=== PATIENT | female | born 1945 | race Caucasian/White ===

== ENCOUNTER 2019-02-24 19:22 | Observation (INO) | payer MEDICARE, OTHER, SELFPAY ==
[2019-02-24] VITALS (8 sets, daily range): BP systolic 145–170; BP diastolic 99–123; PULSE 76–109; RESP 13–17; TEMP 36.6–36.8; O2SAT 94–99; BMI 18.8; BMI 17.5; BMI 17.6
[2019-02-24 19:41] LABS: Bedside Glucose 115 mg/dL (70-110)
--- NOTE | 2019-02-24 19:46 | RAD_ITS ---
STUDY: X-RAY CHEST REASON FOR EXAM: Female, 73 years old. Dizziness and headache TECHNIQUE: Single AP portable view of the chest. COMPARISON: None. FINDINGS: There is hyperinflation of the lungs consistent with chronic obstructive lung disease (COPD). No focal pulmonary consolidation. There is no demonstrated pleural abnormality. Normal size heart. Normal mediastinum and hermilo. Normal visualized pulmonary arteries. There is atherosclerotic tortuosity of the aortic arch and descending thoracic aorta. There is a dextroscoliosis of the thoracic spine. Normal visualized ribs, clavicles, and shoulders. There is no demonstrated abnormality of the visualized soft tissue structures of the upper abdomen. RAD/Chest 1 View IMPRESSION: The lungs are clear. Electronically Signed: Arabella Basilio, at 20:46 EDT Tel , Service support ,
--- NOTE | 2019-02-24 19:46 | EKG12_ITS ---
Test Reason : NEURO S/X Blood Pressure : / mmHG Vent. Rate : 097 BPM Atrial Rate : 097 BPM P-R Int : 142 ms QRS Dur : 084 ms QT Int : 366 ms P-R-T Axes : 081 076 062 degrees QTc Int : 464 ms Normal sinus rhythm Nonspecific ST and T wave abnormality Abnormal ECG Confirmed by LUIS BETANCOURT, MARCIA ([id number]), offline editor LASHAY VALDES ([id number]) on 02/27/2019 1:23:54 PM Referred By: MICA Confirmed By:MARCIA SMITH MD
--- NOTE | 2019-02-24 19:46 | CT_ITS ---
STUDY: CT BRAIN WITHOUT CONTRAST REASON FOR EXAM: Female, 73 years old. Dizziness, headache RADIATION DOSAGE (If Supplied By Facility): CTDIvol = ( 44.99 ) mGy, DLP = ( 779.24 ) mGycm TECHNIQUE: Transaxial CT imaging of the brain was performed without administration of intravenous contrast material. Individualized dose optimization techniques were used for this CT. COMPARISON: No relevant priors. FINDINGS: Normal soft tissue structures. Normal calvarium. There is mild cerebral atrophy with widening of the extra-axial spaces and ventricular dilatation. There are areas of marked decreased attenuation within the white matter tracts of the supratentorial brain, consistent with microvascular disease changes. There is a chronic lacunar infarct in the left internal capsule anterior limb. Normal basal ganglia and thalami. Normal brainstem. Normal cerebellum. There is no intracranial hemorrhage. There are no findings of an acute ischemic infarction. Normal visualized paranasal sinuses. CT/Brain/Head without Contrast IMPRESSION: Chronic involutional changes of the brain. No acute intracranial abnormality. Electronically Signed: Arabella Basilio, at 20:45 EDT Tel , Service support ,
[2019-02-24] MEDS: 0.9% Normal Saline 1,000 ML 100 ML IV (20:06)
[2019-02-24 20:13] LABS: Absolute Lymphocyte Count 2.01 X10^3/ul (0.83-4.51); Absolute Neutrophil Count 5.4 X10^3/uL (2.0-7.7); Basophil# 0.02 X10^3/uL; Basophil% 0.2 % (0-1); Eosinophil# 0.05 X10^3/uL; Eosinophils% 0.6 % (0-5); Hematocrit 50.1 % (37-47); Hemoglobin 17.1 g/dl (12.0-15.0); Lymphocyte # 2.01 X10^3/ul (4.0); Lymphocyte % 24.7 % (19-41); Mean Corp Hgb Conc 34.1 g/gl (32-36); Mean Corpuscular Hgb 31.7 pg (27.0-32.0); Mean Corpuscular Volume 92.9 fL (81-99); Mean Platelet Vol. 9.3 fl (6.2-12.0); Monocyte# 0.63 X10^3/uL; Monocyte% 7.7 % (0-10); Neutrophil # 5.42 X10^3/uL (2.7-7.7); Neutrophil % 66.7 % (47-70); POSITIVE COUNT NO; POSITIVE DIFFERENTIAL NO; POSITIVE MORPHOLOGY NO; Platelet Count 246 K/mm3 (150-450); RBC Distribution Width CV 13.7 % (11.6-14.6); RBC Distribution Width SD 46.5 fl (35.1-43.9); Red Blood Count 5.39 M/mm3 (4.2-5.4); White Blood Count 8.1 K/mm3 (4.4-11.0)
[2019-02-24 20:23] LABS: International Normalized Ratio 0.9
[2019-02-24 20:24] LABS: Partial Thromboplast Time 25.2 Seconds (24.1-36.2)
[2019-02-24 20:26] LABS: Anion Gap 8 (5-15); BUN 29 mg/dL (7-18); BUN/Creat Ratio 35.6 RATIO (10-20); Chloride 108 mmol/L (98-107); Creatinine, Serum 0.82 mg/dL (0.55-1.02); EST Glomerular Filtration Rate 73 mL/min (>60); Est Glom Filt Rate - Afr Amer 88 mL/min (>60); Estimated Creatinine Clearance 48.13 ml/min; Glucose 108 mg/dL (74-106); Potassium 3.5 mmol/L (3.5-5.1); Sodium Level 142 mmol/L (136-145)
--- NOTE | 2019-02-24 21:10 | ED.VISSUMM ---
- ER Visit Summary Date of Service: 02/24/19 Chief Complaint: Headache and confusion History of Present Illness: The patient is a 73 F who started to feel lightheaded and developed a frontal headache last night around 1130 before going to bed. Patient states her headache continued today. She did take an old Vicodin without much improvement. Family reports she seems more forgetful and has trouble finding her words. She denies any recent head injury. She does have a history of headache and migraines, but has not had migraine in quite some time. She does go to [facility] for injections in her eyes. She states the last 2 months they have noted her blood pressure to be elevated. Physical Examination: Blood pressure is 165/122, temperature 98.3, heart rate 109, respiratory rate 16, pulse ox 98% on room air. Patient sitting upright in bed no acute distress. Head and neck examination is normal. Heart is regular rate and rhythm. Lung sounds are clear. Abdomen is soft and nontender. Neuro exam reveals an NIH score of 1, she receives one-point for best language with slight loss of fluency and trouble with word finding. Test Results: EKG is sinus at [address] changes. Portable chest x-ray shows lungs to be clear. CT head shows chronic involutional changes with no acute abnormality. CBC was normal white count with hemoglobin concentrated at 17.1 hematocrit 50.1. Chemistry studies reveal BUN of 29. Coags normal. Troponin is negative. Emergency Department Course and Treatment: Patient was given IV fluids. Blood pressure initially improved to 140/99 and on most recent check is back up to 160/105. I recommended hospitalization overnight for further monitoring, blood pressure monitoring, and potential MRI. Patient states her headache is essentially resolved at this point. Treatment Plan: [] Disposition: Admit Impression: 1. Cephalgia, improved 2. Confusion 3. Hypertension This note was generated with [employer] dictation software. It may contain incorrect words, spelling, and punctuation that were not noted in review of the chart prior to signing ED Disposition - Plan for ED Patient: Referrals: Chris Clemente MD [Primary Care Provider] -
--- NOTE | 2019-02-24 21:29 | ED.RN ---
OK TO [facility] PER .
--- NOTE | 2019-02-24 21:34 | HP.PCM_ITS ---
Problem List (1) Stroke-like symptoms Status: Acute History of Present Illness Date of Admission: 02/24/19 Chief Complaint: words finding difficulty The patient is a 73 year old F with a significant history of tobacco abuse; macular degeneration; and chronic headache who presented to the emergency department with words finding difficulty. Her symptoms started on the same day of presentation but many hours before presentation. Associated with her sym ptoms is excruciating supra-orbital headache in a band-like pattern. She typically has a chronic headache but her headache on the day of presentation was more severe. Further, she had lightheadedness. A neighbor came to her home and found that patient was having difficulty finding words for which reason the neighbor called the patient's family. Patient's family upon realizing that patient was slow to think and was having difficulty finding words brought patient to the emergency department. Her family thinks that at baseline patient is very sharp and spontaneously in answering questions. At the emergency department her blood pressure was elevated. Patient reports that she gets injections into her eyes . At the center where she gets these shots into her eyes she was told that her blood pressure has been elevated. Past Medical History Medical History: Medical History (Last Updated 02/24/19 @ 22:29 by Gatito Bautista MD) Macular degeneration H35.30 Allergies No Known Allergies Allergy (Verified 02/24/19 19:27) Home Medications: Ambulatory Orders Medication Instructions Recorded NK 02/24/19 Surgical History: no surgical history Lives: Alone Smoking Status: Current every day smoker Tobacco Use: Cigarettes Alcohol: None - *Family History Maternal History Items: Cancer Paternal History Items: - - Patient and her family does not know. Review of Systems Constitutional: Denies: Chills, Fever, Weight Change HEENT: Reports: Head Aches. Denies: Sinus Congestion, Sinus Drainage Cardiovascular: Denies: Chest Pain, Palpitations Respiratory: Denies: Cough, Shortness of breath at rest, Sputum production Gastrointestinal: Denies: Abdominal Pain, Nausea, Vomiting Genitourinary: Denies: Dysuria Musculoskeletal: Denies: Joint Pain, Joint Tenderness Skin: Denies: Rash, Wounds Neurological: Reports: Change in Speech, Headaches. Denies: Focal weakness, Numbness, Tingling Psychiatric: Denies: Anxiety, Depression, Homicidal Ideations, Suicidal Ideations Hematologic/ Lymphatic: Denies: Easy Bruising, Easy Bleeding VTE Information - Inpt Only VTE Present on Admission: Yes VTE Mechan Device Prophylaxis: None VTE Pharm Prophylaxis ordered?: Yes Patient Problems: Active and Suspected Problems (Last Updated 02/24/19 @ 22:29 by Gatito Bautista MD) Stroke-like symptoms (Acute) - Physical Exam General: Alert, Oriented x3, Cooperative HEENT: Atraumatic, PERRLA, EOMI, Normocephalic Neck: Supple, No JVD, Negative Carotid Bruits Lungs: Clear to auscultation, Normal air movement Cardiovascular: Regular rate, No murmurs Abdomen: Bowel Sounds Present, Soft, Non Tender Extremities: No edema, Capillary Refill Less than 3 Seconds Skin: No rashes, No breakdown Musculoskeletal: No Tenderness to Palpation of Joints or Extremities Neurological: Cranial nerves II-XII grossly intact, Deep Tendon Reflexes 2+/4 and Symmetrical, Motor Exam 5/5 strength throughout, Muscle tone normal, - - No dysmetria. Psych/Mental Status: Normal Affect, Appropriate Vital Signs Temp Pulse Resp BP Pulse Ox 98.3 F 84 16 162/123 H 98 02/24/19 19:23 02/24/19 21:30 02/24/19 21:30 02/24/19 21:30 02/24/19 21:30 Oxygen Delivery Method Room Air Weight: 49.895 kg Body Mass Index (BMI) 18.8 Finger Stick Blood Glucose 115 Laboratory Tests Past 24 Hrs 02/24/19 02/24/19 02/24/19 20:00 20:00 20:00 WBC 8.1 RBC 5.39 Hgb 17.1 H Hct 50.1 H MCV 92.9 MCH 31.7 MCHC 34.1 RDW 13.7 RDW Differential 46.5 H Plt Count 246 MPV 9.3 Immature Gran % (Auto) 0.100 Neut % (Auto) 66.7 Lymph % (Auto) 24.7 [place] % (Auto) 7.7 Eos % (Auto) 0.6 Baso % (Auto) 0.2 Absolute Neuts (auto) 5.4 Absolute Lymphs (auto) 2.01 Total Counted Not Reportable PT 12.0 INR 0.9 APTT 25.2 Sodium 142 Potassium 3.5 Chloride 108 H Carbon Dioxide 26.0 Anion Gap 8 BUN 29 H Creatinine 0.82 Estim Creat Clear Calc 48.13 Est GFR (MDRD) Af Amer 88 Est GFR (MDRD) Non-Af 73 BUN/Creatinine Ratio 35.6 H Glucose 108 H Calcium 9.0 Troponin I < 0.015 POC Glucose 02/24/19 19:34 POC Glucose 115 H Assessment/Plan All Active Problems (Last Updated 02/24/19 @ 22:29 by Gatito Bautista MD) Stroke-like symptoms (Acute) The patient is a 73 year old F with a significant history of tobacco abuse; macular degeneration; and chronic headache who presented to the emergency department with words finding difficulty; lightheadedness and headache concerning for stroke/TIA. Strokelike symptoms Emergency department doctor reported that NINDS NIH Scale on admission was called as 1 because of word finding difficulty. Chest x-ray shows hyperinflation and atherosclerotic tortuosity of the aortic arch and descending aorta. Chest x-ray was independently reviewed. I agree with radiologist interpretation. CT of the head mild cerebral atrophy with widening of the extra axial spaces and ventricular dilatation. There was evidence of mild microvascular disease. There is a chronic lacunar infarct in the left internal capsule anterior limb. -Check Hba1c, Lipid level Physical therapy, occupational therapy and speech therapy to work with patient. N.p.o. until bedside swallow eval. Daily aspirin. High intensity statin Permissive hypertension. Control blood pressure with labetalol for systolic blood pressure of more than 220 or diastolic blood pressure of more than 120. -Permissive HTN for 24 hrs ending about 8 AM on 02/25/2019. MRI/MRAM of head; brain; and neck. Echocardiogram ordered. Tylenol for headache Differential diagnosis includes complex migraine. Probable Mild dehydration Patient noted to have elevated BUN of 29 Her hemoglobin was 17.1 and hematocrit was 50.1; likely, her erythrocytosis is from hypoxia and obstructive lung disease secondary to smoking. Can not rule out hemoconcentration from dehydration. She received IV fluid emergency department. Maintenance normal saline continued. Trend CBC and BMP Macular degeneration She reports she gets intraocular injections. Continue with outpatient therapy. Elevated blood pressure without diagnosis of hypertension. If her blood pressure remains elevated above the window of permissive hyperte nsion for stroke consider starting patient on blood pressure medication. Tobacco abuse Patient declined nicotine patch Counselled DVT prophylaxis Subcutaneous heparin. . Code Visit OBSV E&M: [id number] Initial observation care L3
[2019-02-24 23:21] LABS: Hemoglobin A1c 5.9 % (4.2-6.3)
[2019-02-25] VITALS (11 sets, daily range): BP systolic 128–165; BP diastolic 90–113; PULSE 62–97; RESP 16; TEMP 36.5–37.1; O2SAT 95–98; BMI 17.5
[2019-02-25] MEDS: 0.9% NaCl Peripheral Flush Adult/Peds IV (00:15)
[2019-02-25] MEDS: 0.9% Normal Saline 1,000 ML 100 ML IV (00:15)
[2019-02-25] MEDS: Atorvastatin Calcium 80 MG Tablet PO (00:34)
[2019-02-25 05:58] LABS: Hematocrit 44.2 % (37-47); Hemoglobin 14.6 g/dl (12.0-15.0); Mean Corpuscular Volume 93.8 fL (81-99); Mean Platelet Vol. 9.3 fl (6.2-12.0); Platelet Count 213 K/mm3 (150-450); RBC Distribution Width CV 13.7 % (11.6-14.6); RBC Distribution Width SD 47.3 fl (35.1-43.9); Red Blood Count 4.71 M/mm3 (4.2-5.4); White Blood Count 5.8 K/mm3 (4.4-11.0)
[2019-02-25 06:09] LABS: Anion Gap 7 (5-15); BUN 18 mg/dL (7-18); BUN/Creat Ratio 35.2 RATIO (10-20); Calcium,Total 8.1 mg/dL (8.5-10.1); Chloride 114 mmol/L (98-107); Cholesterol 207 mg/dL (200); Creatinine, Serum 0.51 mg/dL (0.55-1.02); EST Glomerular Filtration Rate 125 mL/min (>60); Est Glom Filt Rate - Afr Amer 152 mL/min (>60); Glucose 79 mg/dL (74-106); High Density Lipoprotein 61 mg/dL; Potassium 3.5 mmol/L (3.5-5.1); Sodium Level 144 mmol/L (136-145); Triglycerides 124 mg/dL; Very Low Density Lipoprotein 25 mg/dL (5-40)
[2019-02-25 06:15] LABS: Scan Indicated on CBC? Y/N NO
[2019-02-25] MEDS: Heparin Injection (Vial) 5,000 UNIT/ML VIAL 5000 UNIT SC (06:30)
--- NOTE | 2019-02-25 07:39 | MRI_ITS ---
STUDY: MRI BRAIN WITHOUT CONTRAST REASON FOR EXAM: Female, 73 years old. CVA, confusion TECHNIQUE: Standardized multiplanar fat and water weighted pulse sequences were obtained. COMPARISON: CT head-02/24/2019. FINDINGS: There is moderate cerebral atrophy with widening of the extra-axial spaces and ventricular dilatation. There are multiple confluent white matter hyperintensities, distributed throughout the deep white matter tracts of the cerebral hemispheres, consistent with severe chronic white matter ischemic changes. There are chronic bilateral basal ganglia lacunar infarct. Normal thalami. There is no extra-axial fluid accumulation. Normal flow voids within the major intracranial circulation suggesting patency by spin echo criteria. Normal sella turcica, pituitary gland, infundibular stalk, optic chiasm and hypothalamus. Normal tectal plate and pineal gland. Normal midbrain, rossi and medulla. Normal cerebellum. Normal basal cisterns. Normal bilateral temporal bones. Normal bilateral internal auditory canals. No demonstrated orbital abnormality, within the constraints of a routine brain study. Normal visualized paranasal sinuses. Normal calvarium and skull base. Normal visualized soft tissue structures. Normal visualized upper cervical spine. MRI/Brain without Contrast IMPRESSION: No acute intracranial abnormality. Involutional changes of the brain, as described above. Electronically Signed: Arabella Basilio, at 10:22 EDT Tel , Service support ,
--- NOTE | 2019-02-25 07:39 | MRI_ITS ---
STUDY: MRA NECK WITH AND WITHOUT CONTRAST REASON FOR EXAM: Female, 73 years old. CVA, confusion TECHNIQUE: 3-D [id number] (TOF) imaging was performed in an 1.5 T MRI scanner. 10 IV Dotarem was administered for the contrast enhanced images. COMPARISON: None. FINDINGS: RIGHT CAROTID ARTERIES: Normal right common carotid artery (CCA). There is mild atherosclerotic plaque formation with minimal narrowing of the right carotid bulb. Normal origin of the right internal carotid (ICA) artery without a hemodynamically significant stenosis. Normal visualized cervical portion of the right internal carotid artery. There is moderate atherosclerotic plaque formation of the origin of the right external carotid artery with an estimated stenosis of 50-69% stenosis. LEFT CAROTID ARTERIES: Normal left common carotid artery (CCA). There is mild atherosclerotic plaque formation with minimal narrowing of the left carotid bulb. Normal origin of the left internal carotid (ICA) artery without a hemodynamically significant stenosis. Normal visualized cervical portion of the left internal carotid artery. Normal origin of the left external carotid artery (ECA). VERTEBRAL ARTERIES: Normal antegrade flow within the bilateral vertebral artery without a hemodynamically significant stenosis. MRI/MRA Neck WITH and W/O Contrast IMPRESSION: There is mild bilateral carotid bulb atherosclerotic disease. There is moderate atherosclerotic plaque formation of the origin of the right external carotid artery with an estimated stenosis of 50-69% stenosis. Electronically Signed: Arabella Basilio, at 11:01 EDT Tel , Service support ,
--- NOTE | 2019-02-25 07:39 | MRI_ITS ---
STUDY: MRA OF THE HEAD WITHOUT CONTRAST REASON FOR EXAM: Female, 73 years old. CVA, confusion TECHNIQUE: 3-D [id number] (TOF) imaging was performed with MIPs. The study was performed unenhanced. COMPARISON: None. FINDINGS: Normal bilateral petrous carotid arteries. Normal right cavernous carotid artery with a normal supraclinoid bifurcation. Normal left cavernous carotid artery with a normal supraclinoid bifurcation. Normal right A1 segments of the anterior cerebral artery. Normal left A1 segments of the anterior cerebral artery. Normal intact anterior communicating artery (ACOM). Normal bilateral A2 segments of the anterior cerebral arteries. Normal right M1 and M2 segments of the middle cerebral arteries, with a normal M1 bifurcation. Normal left M1 and M2 segments of the middle cerebral arteries, with a normal M1 bifurcation. Normal right posterior communicating artery (PCOM). Normal left posterior communicating artery (PCOM). Normal bilateral vertebral arteries. Normal basilar artery with a normal basilar bifurcation. The visualized bilateral superior cerebellar (SCA) arteries are normal. Normal bilateral P1, P2 and visualized P3 segments of the posterior cerebral arteries. There is no demonstrated aneurysm of the pala of [place]. There is no major vessel occlusion or hemodynamically significant stenosis. There is no demonstrated abnormality of the visualized brain. MRI/MRA Head ONLY without Contrast IMPRESSION: Normal MRA of the head Electronically Signed: Arabella Basilio, at 10:47 EDT Tel , Service support ,
[2019-02-25] MEDS: Aspirin 81 MG TAB.CHEW PO (10:10)
--- NOTE | 2019-02-25 12:01 | PCM.PROGNOTE ---
Subjective: Patient is a 73-year-old female with a past medical history of tobacco dependence, macular degeneration and chronic headache who presented to the emergency department at [facility] on 02/24/2019 complaining of difficulty word finding. She had the symptoms for many hours prior to presenting to the emergency department. She also complained of an excruciating supraorbital headache in a bandlike pattern. Vital signs in the emergency department were temp 98.3, pulse 109, blood pressure 160 respiratory rate 16 and she was 96-98% saturated on room air. CBC was remarkable for a hemoglobin of 17.1. BMP was remarkable for a BUN of 29 with a creatinine of 0.82. Hemoglobin A1c was 5.9. Troponin was less than 0.015. A noncontrasted brain CT showed chronic involutional changes only. Chest x-ray showed no infiltrates, pleural effusions or pulmonary vascular congestion. NIH in the emergency room was 1 with slight loss of fluency and trouble word finding. Blood pressures have ranged from 128/98-162/123 since admission. With hydration the creatinine has decreased from 0.82-0.51 with a BUN of 18. Hemoglobin is decreased to 14.6. MRI of the brain shows no acute intracranial abnormality but does show involutional changes. MRA of the head is normal. MRA of the neck shows 50-69% stenosis of the right external carotid artery. PT, OT and speech therapy have been ordered but the patient has not been seen yet. - Physical Exam General: Alert, Oriented x3, Cooperative, No apparent distress HEENT: Atraumatic, PERRLA, EOMI, Normocephalic Oral: Dry Mucosa Neck: Supple, No JVD, Negative Carotid Bruits Lungs: Clear to auscultation Cardiovascular: Regular rate, Regular Rhythm, Normal S1, Normal S2, No murmurs, No Gallop Abdomen: Bowel Sounds Present, Soft, Non Tender, Non-Distended Extremities: No clubbing, No cyanosis, No edema Neurological: Cranial nerves II-XII grossly intact, Neuro grossly intact, - - her son and dtr are in the room and they feel that she is back to her baseline Psych/Mental Status: Normal Affect, Appropriate Vital Signs Temp Pulse Resp BP Pulse Ox 98.7 F 72 16 165/90 H 95 02/25/19 08:12 02/25/19 08:12 02/25/19 08:12 02/25/19 08:12 02/25/19 08:12 Oxygen Delivery Method Room Air Weight: 102 lb 4.712 oz Body Mass Index (BMI) 17.5 Finger Stick Blood Glucose 115 Intake and Output for Last 24 Hours 02/23/19 02/24/19 02/25/19 23:59 23:59 23:59 Intake Total 715 / 715 Balance 715 / 715 Laboratory Tests Past 24 Hrs 02/24/19 02/24/19 02/24/19 20:00 20:00 20:00 WBC 8.1 RBC 5.39 Hgb 17.1 H Hct 50.1 H MCV 92.9 MCH 31.7 MCHC 34.1 RDW 13.7 RDW Differential 46.5 H Plt Count 246 MPV 9.3 Immature Gran % (Auto) 0.100 Neut % (Auto) 66.7 Lymph % (Auto) 24.7 [place] % (Auto) 7.7 Eos % (Auto) 0.6 Baso % (Auto) 0.2 Absolute Neuts (auto) 5.4 Absolute Lymphs (auto) 2.01 Total Counted Not Reportable PT 12.0 INR 0.9 APTT 25.2 Sodium 142 Potassium 3.5 Chloride 108 H Carbon Dioxide 26.0 Anion Gap 8 BUN 29 H Creatinine 0.82 Estim Creat Clear Calc 48.13 Est GFR (MDRD) Af Amer 88 Est GFR (MDRD) Non-Af 73 BUN/Creatinine Ratio 35.6 H Glucose 108 H Hemoglobin A1c Calcium 9.0 Troponin I < 0.015 Triglycerides Cholesterol LDL Cholesterol VLDL Cholesterol HDL Cholesterol 02/24/19 02/25/19 02/25/19 20:00 05:22 05:22 WBC 5.8 RBC 4.71 Hgb 14.6 Hct 44.2 MCV 93.8 MCH 31.0 MCHC 33.0 RDW 13.7 RDW Differential 47.3 H Plt Count 213 MPV 9.3 Immature Gran % (Auto) Neut % (Auto) Lymph % (Auto) [place] % (Auto) Eos % (Auto) Baso % (Auto) Absolute Neuts (auto) Absolute Lymphs (auto) Total Counted PT INR APTT Sodium 144 Potassium 3.5 Chloride 114 H Carbon Dioxide 23.0 Anion Gap 7 BUN 18 Creatinine 0.51 L Estim Creat Clear Calc 36.70 Est GFR (MDRD) Af Amer 152 Est GFR (MDRD) Non-Af 125 BUN/Creatinine Ratio 35.2 H Glucose 79 Hemoglobin A1c 5.9 Calcium 8.1 L Troponin I Triglycerides 124 Cholesterol 207 H LDL Cholesterol 121 VLDL Cholesterol 25 HDL Cholesterol 61 POC Glucose 02/24/19 19:34 POC Glucose 115 H Medical Necessity - Tobacco Use Smoking Status: Current every day smoker Tobacco Use: Cigarettes Assessment/Plan All Active Problems (Last Updated 02/24/19 @ 22:29 by Gatito Bautista MD) CVA (cerebral vascular accident) (Ruled-out) Dehydration (Acute) TIA (transient ischemic attack) (Acute) Stroke-like symptoms (Resolved) Impressions 1. transient aphasia likely due to TIA. MRI is negative for acute findings. suspect that shehas small vessel disease and the dehydration and hemoconcentration lead to decreased perfusion to the brain and transient sx. 2. HTN - not adequately controlled 3. tobacco dependence 4. dehydration with hemoconcentration 5. macular degeneration 6. stage I diastolic dysfunction with +1 MR [place] home. Advised her to increase her fluid intake. tobacco cessation was advised. Lisinopril at [place] Advised she should have a PCP and her son follows at [facility] so she will follow up with Dr. Torrez within the next 2 weeks.
--- NOTE | 2019-02-25 12:08 | PN_ITS ---
Subjective: Patient is a 73-year-old female with a past medical history of tobacco dependence, macular degeneration and chronic headache who presented to the em ergency department at [facility] on 02/24/2019 complaining of difficulty word finding. She had the symptoms for many hours prior to presenting to the emergency department. She also complained of an excruciating supraorbital headache in a bandlike pattern. Vital signs in the emergency department were temp 98.3, pulse 109, blood pressure 160 respiratory rate 16 and she was 96-98% saturated on room air. CBC was remarkable for a hemoglobin of 17.1. BMP was remarkable for a BUN of 29 with a creatinine of 0.82. Hemoglobin A1c was 5.9. Troponin was less than 0.015. A noncontrasted brain CT showed chronic involutional changes only. Chest x-ray showed no infiltrates, pleural effusions or pulmonary vascular congestion. NIH in the emergency room was 1 with slight loss of fluency and trouble word finding. Blood pressures have ranged from 128/98-162/123 since admission. With hydration the creatinine has decreased from 0.82-0.51 with a BUN of 18. Hemoglobin is decreased to 14.6. MRI of the brain shows no acute intracranial abnormality but does show involutional changes. MRA of the head is normal. MRA of the neck shows 50-69% stenosis of the right external carotid artery. PT, OT and speech therapy have been ordered but the patient has not been seen yet. - Physical Exam General: Alert, Oriented x3, Cooperative, No apparent distress HEENT: Atraumatic, PERRLA, EOMI, Normocephalic Oral: Dry Mucosa Neck: Supple, No JVD, Negative Carotid Bruits Lungs: Clear to auscultation Cardiovascular: Regular rate, Regular Rhythm, Normal S1, Normal S2, No murmurs, No Gallop Abdomen: Bowel Sounds Present, Soft, Non Tender, Non-Distended Extremities: No clubbing, No cyanosis, No edema Neurological: Cranial nerves II-XII grossly intact, Neuro grossly intact, - - her son and dtr are in the room and they feel that she is back to her baseline Psych/Mental Status: Normal Affect, Appropriate Vital Signs Temp Pulse Resp BP Pulse Ox 98.7 F 72 16 165/90 H 95 02/25/19 08:12 02/25/19 08:12 02/25/19 08:12 02/25/19 08:12 02/25/19 08:12 Oxygen Delivery Method Room Air Weight: 102 lb 4.712 oz Body Mass Index (BMI) 17.5 Finger Stick Blood Glucose 115 Intake and Output for Last 24 Hours 02/23/19 02/24/19 02/25/19 23:59 23:59 23:59 Intake Total 715 / 715 Balance 715 / 715 Laboratory Tests Past 24 Hrs 02/24/19 02/24/19 02/24/19 20:00 20:00 20:00 WBC 8.1 RBC 5.39 Hgb 17.1 H Hct 50.1 H MCV 92.9 MCH 31.7 MCHC 34.1 RDW 13.7 RDW Differential 46.5 H Plt Count 246 MPV 9.3 Immature Gran % (Auto) 0.100 Neut % (Auto) 66.7 Lymph % (Auto) 24.7 [place] % (Auto) 7.7 Eos % (Auto) 0.6 Baso % (Auto) 0.2 Absolute Neuts (auto) 5.4 Absolute Lymphs (auto) 2.01 Total Counted Not Reportable PT 12.0 INR 0.9 APTT 25.2 Sodium 142 Potassium 3.5 Chloride 108 H Carbon Dioxide 26.0 Anion Gap 8 BUN 29 H Creatinine 0.82 Estim Creat Clear Calc 48.13 Est GFR (MDRD) Af Amer 88 Est GFR (MDRD) Non-Af 73 BUN/Creatinine Ratio 35.6 H Glucose 108 H Hemoglobin A1c Calcium 9.0 Troponin I < 0.015 Triglycerides Cholesterol LDL Cholesterol VLDL Cholesterol HDL Cholesterol 02/24/19 02/25/19 02/25/19 20:00 05:22 05:22 WBC 5.8 RBC 4.71 Hgb 14.6 Hct 44.2 MCV 93.8 MCH 31.0 MCHC 33.0 RDW 13.7 RDW Differential 47.3 H Plt Count 213 MPV 9.3 Immature Gran % (Auto) Neut % (Auto) Lymph % (Auto) [place] % (Auto) Eos % (Auto) Baso % (Auto) Absolute Neuts (auto) Absolute Lymphs (auto) Total Counted PT INR APTT Sodium 144 Potassium 3.5 Chloride 114 H Carbon Dioxide 23.0 Anion Gap 7 BUN 18 Creatinine 0.51 L Estim Creat Clear Calc 36.70 Est GFR (MDRD) Af Amer 152 Est GFR (MDRD) Non-Af 125 BUN/Creatinine Ratio 35.2 H Glucose 79 Hemoglobin A1c 5.9 Calcium 8.1 L Troponin I Triglycerides 124 Cholesterol 207 H LDL Cholesterol 121 VLDL Cholesterol 25 HDL Cholesterol 61 POC Glucose 02/24/19 19:34 POC Glucose 115 H Medical Necessity - Tobacco Use Smoking Status: Current every day smoker Tobacco Use: Cigarettes Assessment/Plan All Active Problems (Last Updated 02/24/19 @ 22:29 by Gatito Bautista MD) CVA (cerebral vascular accident) (Ruled-out) Dehydration (Acute) TIA (transient ischemic attack) (Acute) Stroke-like symptoms (Resolved) Impressions 1. transient aphasia likely due to TIA. MRI is negative for acute findings. suspect that shehas small vessel disease and the dehydration and hemoconcentration lead to decreased perfusion to the brain and transient sx. 2. HTN - not adequately controlled 3. tobacco dependence 4. dehydration with hemoconcentration 5. macular degeneration 6. stage I diastolic dysfunction with +1 MR [place] home. Advised her to increase her fluid intake. tobacco cessation was advised. Lisinopril at [place] Advised she should have a PCP and her son follows at [facility] so she will follow up with Dr. Torrez within the next 2 weeks.
--- NOTE | 2019-02-25 14:52 | DCINST_ITS ---
- Discharge Diagnoses Current Active Problems: Current Active and Chronic Problems (Last Updated 02/24/19 @ 22:29 by Gatito Bautista MD) Stroke-like symptoms (Acute) You will use the following diet at home:: Cardiac - low salt, low cholesterol Your food should be the consistency of: Regular Your liquids should be the consistency of: Regular/Thin Discharge Activity: - - stay out of the hot sun for the next 48 hours. Call your doctor if you observe: Fever of 101 or Higher, Numbness or Tingling, Shortness of breath, Dizziness, Fainting spells, Swelling in the ankles, Chest pain, Increased palpitations (irregular heartbeat), - - recurrent trouble with getting your words out, unilateral numbess or weakness of the arms or legs, facial droop Instructions: Tips for Quitting Smoking (Cardiovascular), Why Do You Smoke?, Planning to Quit Smoking, Getting Support for Quitting Smoking, Coping with Smoking Withdrawal, The Benefits of Living Smoke Free, Lisinopril Oral tablet Additional Instructions: You were very dehydrated at admission and this makes your blood viscous. You have some evidence of small vessel cerebrovascular disease on the CT and MRI of the brain. When you take thick blood and try to push it through a small arteriosclerotic blood vessel it gets stuck and then you can have stroke symptoms that resolve when you get hydrated. You also get a COTTRELL when you are dehydrated. The MRI showed NO stroke. You have had persistently elevated BP in the hospital and I am starting you on a BP medication called Lisinopril. You have diminished breath sounds and occasional wheezing when I listen to your lungs. The chest XRAY shows flattened diaphragms and hyperinflation and this is usually what we see with emphysema. I recommend you stop smoking. I am giving you a prescription for a nicotine patch and some literature to read about quitting smoking and resources to help you. You really should have a family doctor. Health maintenance is very improtant in PREVENTING disease. I am referring you to Dr. Amisha Elliott. Allergies/Adverse Reactions: Allergies No Known Allergies Allergy (Verified 02/24/19 19:27) Medications to take at Discharge Aspirin [Aspirin, Baby] 81 mg PO DAILY@0800 tab.chew 02/25/19 Lisinopril [Zestril] 10 mg PO DAILY #30 tab 02/25/19 Nicotine [Nicoderm Cq ([facility])] 21 mg TRANSDERM. DAILY #28 patch 02/25/19 The following prescriptions were given: Lisinopril [Zestril] 10 mg PO DAILY #30 tab Nicotine [Nicoderm Cq ([facility])] 21 mg TRANSDERM. DAILY #28 patch Primary Care Physician: Chris Clemente MD [Primary Care Provider] - Test Results: Test results from this visit will be discussed in further detail at your follow- up appointment, if applicable. Please Follow Up With: Amisha Torrez MD When: 7-10 days Proposed Discharge Date: 02/25/19
--- NOTE | 2019-02-25 15:06 | DS.PCM_ITS ---
Discharge Date and Diagnosis Date of Admission: 02/24/19 Date of Discharge: 02/25/19 - Primary Discharge Diagnosis Active and Suspected Problems (Last Updated 02/24/19 @ 22:29 by Gatito Bautista MD) Dehydration (Acute) TIA (transient ischemic attack) (Acute) - Secondary Discharge Diagnosis Chronic Problems (Last Updated 02/24/19 @ 22:29 by Gatito Bautista MD) HTN (hypertension) (Chronic) Tobacco dependence Hospital Course and Treatment Imaging Results: 02/25/19 07:39 Brain without Contrast [MRI] Routine MRA Head ONLY without Contrast [MRI] Routine MRA Neck WITH and W/O Contrast [MRI] Routine Clinical Impression(s) from Imaging Studies Brain CT 02/24/19 19:46 IMPRESSION: Chronic involutional changes of the brain. No acute intracranial abnormality. Electronically Signed: Arabella Basilio, at 20:45 EDT Tel , Service support , Chest X-Ray 02/24/19 19:46 IMPRESSION: The lungs are clear. Electronically Signed: Arabella Basilio, at 20:46 EDT Tel , Service support , Brain MRI 02/25/19 07:39 IMPRESSION: No acute intracranial abnormality. Involutional changes of the brain, as described above. Electronically Signed: Arabella Basilio, at 10:22 EDT Tel , Service support , Head MRA 02/25/19 07:39 IMPRESSION: Normal MRA of the head Electronically Signed: Arabella Basilio, at 10:47 EDT Tel , Service support , Neck MRA 02/25/19 07:39 IMPRESSION: There is mild bilateral carotid bulb atherosclerotic disease. There is moderate atherosclerotic plaque formation of the origin of the right external carotid artery with an estimated stenosis of 50-69% stenosis. Electronically Signed: Arabella Basilio at 11:01 EDT Tel , Service support , Laboratory Tests 02/25/19 02/25/19 02/24/19 Range/Units 05:22 05:22 20:00 WBC 5.8 (4.4-11.0) K/mm3 RBC 4.71 (4.2-5.4) M/mm3 Hgb 14.6 (12.0-15.0) g/dl Hct 44.2 (37-47) % MCV 93.8 (81-99) fL MCH 31.0 (27.0-32.0) pg MCHC 33.0 (32-36) g/gl RDW 13.7 (11.6-14.6) % RDW Differential 47.3 H (35.1-43.9) fl Plt Count 213 (150-450) K/mm3 MPV 9.3 (6.2-12.0) fl Immature Gran % (Auto) (0.0-0.9) % Neut % (Auto) (47-70) % Lymph % (Auto) (19-41) % [place] % (Auto) (0-10) % Eos % (Auto) (0-5) % Baso % (Auto) (0-1) % Absolute Neuts (auto) (2.0-7.7) X10^3/uL Absolute Lymphs (auto) (0.83-4.51) X10^3/ul Total Counted PT (11.7-14.9) SECONDS INR APTT (24.1-36.2) Seconds Sodium 144 (136-145) mmol/L Potassium 3.5 (3.5-5.1) mmol/L Chloride 114 H (98-107) mmol/L Carbon Dioxide 23.0 (21.0-32.0) mmol/L Anion Gap 7 (5-15) BUN 18 (7-18) mg/dL Creatinine 0.51 L (0.55-1.02) mg/dL Estim Creat Clear Calc 36.70 ml/min Est GFR (MDRD) Af Amer 152 (>60) mL/min Est GFR (MDRD) Non-Af 125 (>60) mL/min BUN/Creatinine Ratio 35.2 H (10-20) RATIO Glucose 79 (74-106) mg/dL Hemoglobin A1c 5.9 (4.2-6.3) % Calcium 8.1 L (8.5-10.1) mg/dL Troponin I (<0.045) ng/mL Triglycerides 124 ( - 199) mg/dL Cholesterol 207 H (200) mg/dL LDL Cholesterol 121 (0-130) mg/dL VLDL Cholesterol 25 (5-40) mg/dL HDL Cholesterol 61 (40 - ) mg/dL POC Glucose (70-110) mg/dL 02/24/19 02/24/19 02/24/19 Range/Units 20:00 20:00 20:00 WBC 8.1 (4.4-11.0) K/mm3 RBC 5.39 (4.2-5.4) M/mm3 Hgb 17.1 H (12.0-15.0) g/dl Hct 50.1 H (37-47) % MCV 92.9 (81-99) fL MCH 31.7 (27.0-32.0) pg MCHC 34.1 (32-36) g/gl RDW 13.7 (11.6-14.6) % RDW Differential 46.5 H (35.1-43.9) fl Plt Count 246 (150-450) K/mm3 MPV 9.3 (6.2-12.0) fl Immature Gran % (Auto) 0.100 (0.0-0.9) % Neut % (Auto) 66.7 (47-70) % Lymph % (Auto) 24.7 (19-41) % [place] % (Auto) 7.7 (0-10) % Eos % (Auto) 0.6 (0-5) % Baso % (Auto) 0.2 (0-1) % Absolute Neuts (auto) 5.4 (2.0-7.7) X10^3/uL Absolute Lymphs (auto) 2.01 (0.83-4.51) X10^3/ul Total Counted Not Reportable PT 12.0 (11.7-14.9) SECONDS INR 0.9 APTT 25.2 (24.1-36.2) Seconds Sodium 142 (136-145) mmol/L Potassium 3.5 (3.5-5.1) mmol/L Chloride 108 H (98-107) mmol/L Carbon Dioxide 26.0 (21.0-32.0) mmol/L Anion Gap 8 (5-15) BUN 29 H (7-18) mg/dL Creatinine 0.82 (0.55-1.02) mg/dL Estim Creat Clear Calc 48.13 ml/min Est GFR (MDRD) Af Amer 88 (>60) mL/min Est GFR (MDRD) Non-Af 73 (>60) mL/min BUN/Creatinine Ratio 35.6 H (10-20) RATIO Glucose 108 H (74-106) mg/dL Hemoglobin A1c (4.2-6.3) % Calcium 9.0 (8.5-10.1) mg/dL Troponin I < 0.015 (<0.045) ng/mL Triglycerides ( - 199) mg/dL Cholesterol (200) mg/dL LDL Cholesterol (0-130) mg/dL VLDL Cholesterol (5-40) mg/dL HDL Cholesterol (40 - ) mg/dL POC Glucose (70-110) mg/dL 02/24/19 Range/Units 19:34 WBC (4.4-11.0) K/mm3 RBC (4.2-5.4) M/mm3 Hgb (12.0-15.0) g/dl Hct (37-47) % MCV (81-99) fL MCH (27.0-32.0) pg MCHC (32-36) g/gl RDW (11.6-14.6) % RDW Differential (35.1-43.9) fl Plt Count (150-450) K/mm3 MPV (6.2-12.0) fl Immature Gran % (Auto) (0.0-0.9) % Neut % (Auto) (47-70) % Lymph % (Auto) (19-41) % [place] % (Auto) (0-10) % Eos % (Auto) (0-5) % Baso % (Auto) (0-1) % Absolute Neuts (auto) (2.0-7.7) X10^3/uL Absolute Lymphs (auto) (0.83-4.51) X10^3/ul Total Counted PT (11.7-14.9) SECONDS INR APTT (24.1-36.2) Seconds Sodium (136-145) mmol/L Potassium (3.5-5.1) mmol/L Chloride (98-107) mmol/L Carbon Dioxide (21.0-32.0) mmol/L Anion Gap (5-15) BUN (7-18) mg/dL Creatinine (0.55-1.02) mg/dL Estim Creat Clear Calc ml/min Est GFR (MDRD) Af Amer (>60) mL/min Est GFR (MDRD) Non-Af (>60) mL/min BUN/Creatinine Ratio (10-20) RATIO Glucose (74-106) mg/dL Hemoglobin A1c (4.2-6.3) % Calcium (8.5-10.1) mg/dL Troponin I (<0.045) ng/mL Triglycerides ( - 199) mg/dL Cholesterol (200) mg/dL LDL Cholesterol (0-130) mg/dL VLDL Cholesterol (5-40) mg/dL HDL Cholesterol (40 - ) mg/dL POC Glucose 115 H (70-110) mg/dL none Operations: None Procedures: 2-D Echocardiogram - stage I diastolic dysfunction and 1+MR, EKG Summary of Care Provided: The patient is a 73 year old F with a PMH of tobacco dependence and macular degeneration who presented to the ED c/o trouble getting her words out and severe COTTRELL above the R eye. Please see the H&P and my progress note for the details regarding presentation. A non-contrasted CTB was negative for acute findings. There was evidence of small vessel dz. BP was elevated in the ED. Lab was remarkable for severe dehydration with hemoconcentration. HGB was increased at 17.1 and the BUN/CREAT ratio was > 20. She was given a 1 on the NIH score in the ED for decreased fluidity of speech. She was admitted to a monitored bed on PCU and the CVA protocol was initiated. The COTTRELL resolved and the speech returned to normal. MRA of the head was normal. MRI of the brain showed no acute findings. The MRA of the neck showed a reported 50-69% stenosis of the R external carotid take off. ECHO showed normal EF with stage ! DD and mild MR. Bubble study was negative. Smoking cessation counselling was given and cessation of all tobacco products was advised. She was given a RX for a nicotine patch at [place]. She was started on Lisinopril 10 mg daily for HTN. She was discharged on ASA 81 mg daily. Her LDL was 121 and given that she had a TIA and has small vessel disease on the CT and MRI this will likely be addressed by her PCP. CXR showed hyperinflation and I suspect she may have an element of COPD although, this can not be diagnosed without PFT's. She has chosen to follow up with Dr. Amisha Torrez and I recommended she follow up in 10-14 days. She was told to drink more fluids to stay well hydrated. - Physical Exam General: Alert, Oriented x3, Cooperative, No apparent distress, - - thin HEENT: Atraumatic, PERRLA, Normocephalic Oral: Dry Mucosa Neck: Supple, No JVD, Negative Carotid Bruits, - - Carotids have brisk upstroke and excellent pulse volume bilaterally with no carotid bruits Lungs: No rales, Diminished, Wheezes - Rare Cardiovascular: Regular rate, Regular Rhythm, Normal S1, Normal S2, No murmurs, No rub noted, No Gallop, - - Telemetry shows normal sinus rhythm with no ectopy Abdomen: Bowel Sounds Present, Soft, Non Tender, Non-Distended Extremities: No clubbing, No cyanosis, No edema Neurological: Cranial nerves II-XII grossly intact, Neuro grossly intact Psych/Mental Status: Appropriate, Anxious Vital Signs Temp Pulse Resp BP Pulse Ox 98.5 F 87 16 154/113 H 96 02/25/19 14:00 02/25/19 14:00 02/25/19 14:00 02/25/19 14:00 02/25/19 14:00 Oxygen Delivery Method Room Air Weight: 102 lb 4.712 oz Body Mass Index (BMI) 17.5 Finger Stick Blood Glucose 115 Intake and Output for Last 24 Hours 02/23/19 02/24/19 02/25/19 23:59 23:59 23:59 Intake Total 1065 / 1065 Balance 1065 / 1065 Laboratory Tests Past 24 Hrs 02/24/19 02/24/19 02/24/19 20:00 20:00 20:00 WBC 8.1 RBC 5.39 Hgb 17.1 H Hct 50.1 H MCV 92.9 MCH 31.7 MCHC 34.1 RDW 13.7 RDW Differential 46.5 H Plt Count 246 MPV 9.3 Immature Gran % (Auto) 0.100 Neut % (Auto) 66.7 Lymph % (Auto) 24.7 [place] % (Auto) 7.7 Eos % (Auto) 0.6 Baso % (Auto) 0.2 Absolute Neuts (auto) 5.4 Absolute Lymphs (auto) 2.01 Total Counted Not Reportable PT 12.0 INR 0.9 APTT 25.2 Sodium 142 Potassium 3.5 Chloride 108 H Carbon Dioxide 26.0 Anion Gap 8 BUN 29 H Creatinine 0.82 Estim Creat Clear Calc 48.13 Est GFR (MDRD) Af Amer 88 Est GFR (MDRD) Non-Af 73 BUN/Creatinine Ratio 35.6 H Glucose 108 H Hemoglobin A1c Calcium 9.0 Troponin I < 0.015 Triglycerides Cholesterol LDL Cholesterol VLDL Cholesterol HDL Cholesterol 02/24/19 02/25/19 02/25/19 20:00 05:22 05:22 WBC 5.8 RBC 4.71 Hgb 14.6 Hct 44.2 MCV 93.8 MCH 31.0 MCHC 33.0 RDW 13.7 RDW Differential 47.3 H Plt Count 213 MPV 9.3 Immature Gran % (Auto) Neut % (Auto) Lymph % (Auto) [place] % (Auto) Eos % (Auto) Baso % (Auto) Absolute Neuts (auto) Absolute Lymphs (auto) Total Counted PT INR APTT Sodium 144 Potassium 3.5 Chloride 114 H Carbon Dioxide 23.0 Anion Gap 7 BUN 18 Creatinine 0.51 L Estim Creat Clear Calc 36.70 Est GFR (MDRD) Af Amer 152 Est GFR (MDRD) Non-Af 125 BUN/Creatinine Ratio 35.2 H Glucose 79 Hemoglobin A1c 5.9 Calcium 8.1 L Troponin I Triglycerides 124 Cholesterol 207 H LDL Cholesterol 121 VLDL Cholesterol 25 HDL Cholesterol 61 POC Glucose 02/24/19 19:34 POC Glucose 115 H Discharge Activity: - - stay out of the hot sun for the next 48 hours. Call your doctor if you observe: Fever of 101 or Higher, Numbness or Tingling, Shortness of breath, Dizziness, Fainting spells, Swelling in the ankles, Chest pain, Increased palpitations (irregular heartbeat), - - recurrent trouble with getting your words out, unilateral numbess or weakness of the arms or legs, facial droop Home Medications: Medications to take at Discharge Aspirin [Aspirin, Baby] 81 mg PO DAILY@0800 tab.chew 02/25/19 Lisinopril [Zestril] 10 mg PO DAILY #30 tab 02/25/19 Nicotine [Nicoderm Cq ([facility])] 21 mg TRANSDERM. DAILY #28 patch 02/25/19 Following Prescrptions Were Given to Patient: Lisinopril [Zestril] 10 mg PO DAILY #30 tab Nicotine [Nicoderm Cq ([facility])] 21 mg TRANSDERM. DAILY #28 patch Primary Care Physician: Chris Clemente MD [Primary Care Provider] - Please Follow Up With: Amisha Torrez MD When: 7-10 days Patient Instructions: Lisinopril Oral tablet, Tips for Quitting Smoking (Cardiovascular), Why Do You Smoke?, Planning to Quit Smoking, Getting Support for Quitting Smoking, Coping with Smoking Withdrawal, The Benefits of Living Smoke Free Disposition: Home Minutes spent on discharge:: 40 Medical Necessity - Tobacco Use Smoking Status: Current every day smoker Tobacco Use: Cigarettes Meaningful Use Info Meaningful Use Diagnoses (Choose all that apply): None applicable Code Visit OBSV E&M: 24594 Observation care discharge
[2019-02-25] MEDS: Lisinopril 10 MG Tablet PO (15:13)
== END 2019-02-25 15:04 | disposition home or self-care (01) ==
LOC: ED 20:02 → PCU 22:03
PROVIDERS: Admitting Provider Hospitalist; Emergency Provider Emergency Medicine; Family Provider Family Medicine; PCP Family Medicine; Visit Provider Internal Medicine
DX: G45.9 Transient cerebral ischemic attack, unspecified (principal); E86.0 Dehydration; I10 Essential (primary) hypertension; H35.30 Unspecified macular degeneration; F17.210 Nicotine dependence, cigarettes, uncomplicated; R94.31 Abnormal electrocardiogram [ECG] [EKG]; R47.89 Other speech disturbances; R41.0 Disorientation, unspecified; R29.701 NIHSS score 1; R42 Dizziness and giddiness
CPT/HCPCS: 36415; 70450; 70544; 70549; 70551; 71045; 80048; 80061; 82962; 83036; 84484; 85025; 85027; 85610; 85730; 92523; 92610; 93005; 93306; 96360; 96361; 96372; 97802; 99218; 99285; 99406; A9575; J7030; J7040; A4216; G0378

== ENCOUNTER 2022-07-20 12:54 | Observation (INO) | payer MEDICARE, OTHER, SELFPAY ==
[2022-07-20 12:55] VITALS: BP 128/102; PULSE 92; RESP 14; TEMP 36.5; O2SAT 96; BMI 16.7
[2022-07-20 12:58] VITALS: BMI 16.7
--- NOTE | 2022-07-20 13:34 | CT_ITS ---
STUDY: CT BRAIN WITHOUT CONTRAST REASON FOR EXAM: Female, 76 years old. Confusion RADIATION DOSAGE (If Supplied By Facility): CTDIvol = ( 47.06 ) mGy, DLP = ( 890.33 ) mGycm TECHNIQUE: Transaxial CT imaging of the brain was performed without administration of intravenous contrast material. Individualized dose optimization techniques were used for this CT. COMPARISON: Comparison is made with prior study dated 02/24/2019. FINDINGS: Normal soft tissue structures. Normal calvarium. There is mild cerebral atrophy with widening of the extra-axial spaces and ventricular dilatation. There are areas of decreased attenuation within the white matter tracts of the supratentorial brain, consistent with microvascular disease changes. 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 Normal brainstem. Normal cerebellum. There is no intracranial hemorrhage. There are no findings of an acute ischemic infarction. Atherosclerotic calcification of the cavernous portions of the internal carotid arteries bilaterally. Minimal mucosal thickening along the anterior aspect of the left ethmoid sinus. CT/Brain/Head without Contrast IMPRESSION: Chronic involutional changes of the brain. Stable examination. Electronically Signed: Coleman Deshpande MD at 14:18 EDT ,
--- NOTE | 2022-07-20 13:35 | EKG12_ITS ---
Test Reason : NEURO Blood Pressure : / mmHG Vent. Rate : 078 BPM Atrial Rate : 078 BPM P-R Int : 136 ms QRS Dur : 084 ms QT Int : 368 ms P-R-T Axes : 080 075 049 degrees QTc Int : 419 ms Normal sinus rhythm Normal ECG Confirmed by SOULEYMANE RUBIN MD ([id number]), production editor LASHAY VALDES ([id number]) on 07/22/2022 9:52:10 AM Referred By: BIANCA Confirmed By:SOULEYMANE RUBIN MD
--- NOTE | 2022-07-20 13:36 | EDS_ITS ---
HPI History of Present Illness Chief Complaint: Neuro S/Sx Narrative Narrative: Patient presents with reported confusion. Her neighbor and friend who had called her yesterday in the afternoon, almost 24 hours ago, states that the patient was confused, not knowing whether or not she had eaten anything all day. Patient relates history that she had dehydration previously and the symptoms were the same. She feels confused and at times she was lightheaded. She denies any nausea or vomiting. No diarrhea. No fevers or chills. No cough. She is not really have a headache. Her [id number]-eux states that she visited her yesterday and she seemed mildly confused. Her friend called her again this morning, and she heard the TV on in the background but she did not know what she was watching on the television and once again did not know if she had eaten anything for breakfast. She denies any dysuria or hematuria. No paresthesias. She presents for evaluation of her confusion and at times problems concentrating. [facility] Medical History Macular degeneration Home Medications aspirin 81 mg chewable tablet 81 mg PO DAILY@0800 02/25/19 [Rx Last Taken Unknown] lisinopril 10 mg tablet 10 mg PO DAILY #30 tabs 02/25/19 [Rx Last Taken Unknown] Allergy/AdvReac Type Severity Reaction Status Date / Time No Known Allergies Allergy Verified 07/20/22 12:55 Social History Smoking Status: Current every day smoker tobacco type: cigarettes ROS ROS ED ROS Narrative Constitutional: No fever, no chills. HEENT: No sore throat. No neck pain. No loss of vision. No rhinorrhea. Cardiovascular: No chest pain. No palpitations. No pedal edema. Respiratory: No cough, no shortness of breath. Abdominal: No abdominal pain. No nausea. No vomiting. Genitourinary: No dysuria. No hematuria. Musculoskeletal: No myalgias. No arthralgias. Neurologic: No headaches. No dizziness. Positive lightheadedness. Positive confusion/forgetfulness. Skin: No rash. No change in color. Psychiatric: No depression. No anxiety. EXAM Physical Exam Narrative Exam Narrative: Afebrile. Vital signs noted. HEENT: Normocephalic. Atraumatic. PERRL, EOMI. Neck soft and supple. No point tenderness or step off. Cardiovascular: Regular rate and rhythm. No murmurs, rubs, or gallops appreciated. Respiratory: No tachypnea. Lungs clear to auscultation bilaterally. Gastrointestinal: Abdomen soft, nontender, with normoactive bowel sounds. No rebound or guarding. Neurological: Awake. Alert. Oriented x3, but did have difficulty remembering who the president [employer] is currently. Nonfocal, nonlateralizing. NIH stroke scale is 0. Skin: No rash. Normal color. No pallor. Musculoskeletal: No pedal edema. Full range of motion extremities. Const Vital Signs: 07/20/22 12:55 Temperature 97.7 F L Temperature Source Temporal Pulse Rate 92 Respiratory Rate 14 Blood Pressure 128/102 H Blood Pressure Mean 110 Pulse Ox 96 Oxygen Delivery Method Room Air MDM MDM MDM Narrative Medical decision making narrative: Comprehensive work-up was pursued. I do not feel that this is a strokelike symptom with just the confusion, but regardless CT of the brain will be obtained. She is outside the tPA window and her NIH stroke scale is less than 6. She states she felt like this when she was dehydrated in the past. She was bolused normal saline 1 L intravenously and we will check a CBC, CMP, EKG, and chest x-ray also. Urinalysis has been ordered and is pending. EKG interpreted by myself demonstrates normal sinus rhythm at 78 bpm without ectopy or acute ST changes. No STEMI. CBC is grossly normal with a normal white count of 9.2, hemoglobin normal at 14.8 without hemoconcentration, platelet count normal at 207. Potassium is slightly low at 3.3 which was replaced orally. Creatinine 0.95 with a BUN slightly elevated at 21. The rest of her CMP is grossly unremarkable. Urinalysis was obtained and is negative for ketones. Is also negative for nitrites. Chest x-ray 1 view interpreted by myself shows changes consistent with COPD but no evidence of an infiltrate or pneumothorax. CT of the brain shows chronic involutional changes. There is a left old lacunar infarct but no evidence of intracranial hemorrhage. I did review her prior records. She had confusion and headache in 2019 and had an MRI which showed bilateral lacunar infarcts, and chronic microvascular disease. She was diagnosed with mini strokes and put on baby aspirin which she still takes to this day but she remains a smoker. Upon repeat examination, she states she feels mildly improved. While I see no profound evidence of dehydration, my concern is that she had a TIA. I do feel that she should be observed overnight for possible reimaging and consult to neurology. Patient was discussed with the hospitalist. Disposition is observation. She is in stable condition. Lab Data Attestation: I reviewed the patient's lab results. Labs: Laboratory Results - last 24 hr 07/20/22 07/20/22 07/20/22 13:22 13:22 15:11 WBC 9.2 RBC 4.80 Hgb 14.8 Hct 45.7 MCV 95.2 MCH 30.8 MCHC 32.4 RDW Std Deviation 45.4 H RDW Coeff of [place] 12.8 Plt Count 207 MPV 9.3 Immature Gran % (Auto) 0.400 Neut % (Auto) 72.9 H Lymph % (Auto) 17.8 L Crowley % (Auto) 7.9 Eos % (Auto) 0.7 Baso % (Auto) 0.3 Absolute Neuts (auto) 6.7 Absolute Lymphs (auto) 1.63 Nucleated RBC % 0 Sodium 139 Potassium 3.3 L Chloride 102 Carbon Dioxide 30.0 Anion Gap 7 BUN 21 H Creatinine 0.95 Estim Creat Clear Calc 35.15 Est GFR (MDRD) Af Amer 73 Est GFR (MDRD) Non-Af 61 BUN/Creatinine Ratio 22.0 H Glucose 115 H Calcium 11.2 H Total Bilirubin 0.40 AST 15 ALT 13 Alkaline Phosphatase 73 Total Protein 6.8 Albumin 3.3 Globulin 3.5 Albumin/Globulin Ratio 0.9 Urine Color Yellow Urine Clarity Sl. Cloudy Urine pH 6.5 Ur Specific [place] 1.010 Urine Protein Negative Urine Glucose (UA) Normal Urine Ketones Negative Urine Occult Blood 10 H Urine Nitrite Negative Urine Bilirubin Negative Urine Urobilinogen Normal Ur Leukocyte Esterase 25 H Urine RBC 0 SEEN Urine WBC 0 SEEN Ur Squamous Epith Cells 0 SEEN Urine Bacteria 1+ Urine Mucus 0 SEEN Radiography Diagnostic Testing: Clinical Impression(s) from Imaging Studies Brain CT 07/20/22 13:34 IMPRESSION: Chronic involutional changes of the brain. Stable examination. Electronically Signed: Coleman Deshpande MD at 14:18 EDT , Chest X-Ray 07/20/22 14:10 IMPRESSION: Hyperinflation. The lungs are clear. Electronically Signed: Coleman Deshpande MD at 14:46 EDT , Discharge Plan Dx/Rx/DC Orders Clinical Impression: TIA (transient ischemic attack), HTN (hypertension), Confusion, Smoker Disposition Disposition: Acute Care Hospital [facility]
[2022-07-20 13:44] LABS: Absolute Lymphocyte Count 1.63 X10^3/uL (0.83-4.51); Absolute Neutrophil Count 6.7 X10^3/uL (2.0-7.7); Basophil# 0.03 X10^3/uL; Basophil% 0.3 % (0-1); Eosinophil# 0.06 X10^3/uL; Eosinophils% 0.7 % (0-5); Hematocrit 45.7 % (37-47); Hemoglobin 14.8 g/dL (12.0-15.0); Lymphocyte # 1.63 X10^3/ul (0.83-4.51); Lymphocyte % 17.8 % (19-41); Mean Corp Hgb Conc 32.4 g/dL (32-36); Mean Corpuscular Hgb 30.8 pg (27.0-32.0); Mean Corpuscular Volume 95.2 fL (81-99); Mean Platelet Vol. 9.3 fl (6.2-12.0); Monocyte# 0.72 X10^3/uL; Monocyte% 7.9 % (0-10); NRBC Flagged by Analyzer 0 % (0-5); Neutrophil # 6.67 X10^3/uL (2.7-7.7); Neutrophil % 72.9 % (47-70); Platelet Count 207 K/mm3 (150-450); RBC Distribution Width CV 12.8 % (11.6-14.6); RBC Distribution Width SD 45.4 fl (35.1-43.9); White Blood Count 9.2 K/mm3 (4.4-11.0)
[2022-07-20] MEDS: 0.9% Normal Saline 1,000 ML 1000 ML IV (13:49)
[2022-07-20 14:02] LABS: ALB/GLOB Ratio 0.9 RATIO (0.9-2.4); AST(SGOT) 15 U/L (15-37); Alanine Aminotransfer ALT/SGPT 13 U/L (13-56); Albumin, Serum 3.3 g/dL (3.2-5.0); Alkaline Phosphatase 73 U/L (45-117); Anion Gap 7 (5-15); BUN 21 mg/dL (7-18); Calcium,Total 11.2 mg/dL (8.5-10.1); Chloride 102 mmol/L (98-107); Creatinine, Serum 0.95 mg/dL (0.55-1.02); EST Glomerular Filtration Rate 61 mL/min (>60); Est Glom Filt Rate - Afr Amer 73 mL/min (>60); Estimated Creatinine Clearance 35.15 ml/min; Globulin 3.5 g/dL (2.2-4.2); Glucose 115 mg/dL (74-106); Potassium 3.3 mmol/L (3.5-5.1); Protein, Total 6.8 g/dL (6.4-8.2); Sodium Level 139 mmol/L (136-145)
--- NOTE | 2022-07-20 14:10 | RAD_ITS ---
STUDY: X-RAY CHEST REASON FOR EXAM: Female, 76 years old. CAD TECHNIQUE: Single AP portable view of the chest. COMPARISON: Comparison is made with prior study 02/24/2019. FINDINGS: Hyperinflation. The lungs are clear. Scattered calcified granulomas. The lungs are clear and expanded. There is no demonstrated pleural abnormality. Normal size heart. Normal mediastinum and hermilo. Normal visualized pulmonary arteries. There is atherosclerotic calcification of the aortic arch with tortuosity. There are diffuse degenerative changes of the visualized thoracic spine. Normal visualized ribs, clavicles, and shoulders. There is no demonstrated abnormality of the visualized soft tissue structures of the upper abdomen. RAD/Chest 1 View (Portable) IMPRESSION: Hyperinflation. The lungs are clear. Electronically Signed: Coleman Deshpande MD at 14:46 EDT ,
[2022-07-20 15:14] LABS: Mucous, Urine 0 SEEN /hpf (<or=2+); Red Blood Cells-Urine 0 SEEN /hpf (0-5); Squamous Epithelial Cells - UA 0 SEEN /hpf (5-10); White Blood Cells 0 SEEN /hpf (0-5)
[2022-07-20 15:20] LABS: Color, Urine Yellow (Yellow); Glucose, Dipstick Normal (Normal); Ketone-Dipstick Negative (Negative); Leukocyte Esterase-Dipstick 25 /ul (Negative); Nitrite-Dipstick Negative (Negative); Occult Blood-Urine 10 /ul (Negative); Protein-Dipstick Negative (Negative); Urine Bilirubin Dipstick Negative (Negative); Urine Clarity Sl. Cloudy (Clear); Urine Urobilinogen Normal (Normal); Urine pH 6.5 (5.0 - 8.0)
[2022-07-20 15:38] LABS: Bacteria 1+ /hpf (None Seen)
[2022-07-20] MEDS: Potassium Chloride Oral Tablet 20 MEQ 40 MEQ PO (15:55)
--- NOTE | 2022-07-20 15:58 | NURSING ---
129 OBS TERELETSKY TIA, CONFUSION
--- NOTE | 2022-07-20 16:08 | MRI_ITS ---
STUDY: MRA OF THE HEAD WITHOUT CONTRAST REASON FOR EXAM: Female, 76 years old. confusion TECHNIQUE: 3-D [id number] (TOF) imaging was performed with MIPs. The study was performed unenhanced. COMPARISON: None. FINDINGS: Normal bilateral petrous carotid arteries. Normal right cavernous carotid artery with a normal supraclinoid bifurcation. Normal left cavernous carotid artery with a normal supraclinoid bifurcation. Normal right A1 segments of the anterior cerebral artery. Normal left A1 segments of the anterior cerebral artery. Normal intact anterior communicating artery (ACOM). Normal bilateral A2 segments of the anterior cerebral arteries. Normal right M1 and M2 segments of the middle cerebral arteries, with a normal M1 bifurcation. Normal left M1 and M2 segments of the middle cerebral arteries, with a normal M1 bifurcation. Right posterior communicating artery not visualized consistent with normal variant Normal left posterior communicating artery (PCOM). Normal bilateral vertebral arteries. Normal basilar artery with a normal basilar bifurcation. The visualized bilateral superior cerebellar (SCA) arteries are normal. Normal right P1, P2 and visualized P3 segments of the posterior cerebral artery. Hypoplastic left posterior cerebral artery There is no demonstrated aneurysm of the [place]. There is no major vessel occlusion or hemodynamically significant stenosis. MRI/MRA Head ONLY without Contrast IMPRESSION: Normal MRA of the head Electronically Signed: Chris Torres MD at 20:51 EDT ,
--- NOTE | 2022-07-20 16:08 | MRI_ITS ---
STUDY: MRI BRAIN WITHOUT CONTRAST REASON FOR EXAM: Female, 76 years old. confusion TECHNIQUE: Standardized multiplanar fat and water weighted pulse sequences were obtained. COMPARISON: CT of the brain 07/20/2022 MRI of the brain 02/25/2019. FINDINGS: Moderate atrophy and advanced periventricular white matter ischemic changes without mass effect or restricted diffusion.. Multiple tiny old lacunar infarcts in left basal ganglia and tiny old right basal ganglia infarct. Tiny old right thalamic infarct There is no extra-axial fluid accumulation. Normal flow voids within the major intracranial circulation suggesting patency by spin echo criteria. Normal sella turcica, pituitary gland, infundibular stalk, optic chiasm and hypothalamus. Normal tectal plate and pineal gland. Normal midbrain, rossi and medulla. Normal cerebellum. Megacisterna magna is noted consistent with normal developmental variant. Normal basal cisterns. Normal bilateral temporal bones. Normal bilateral internal auditory canals. Postsurgical changes of the orbits. Mild mucosal thickening of the left ethmoid and bilateral maxillary sinuses Normal calvarium and skull base. Normal visualized soft tissue structures. Normal visualized upper cervical spine. MRI/Brain without Contrast IMPRESSION: Moderate atrophy and advanced periventricular white matter ischemic change without evidence for acute infarct. Multiple old bilateral lacunar infarcts. Electronically Signed: Chris Torres MD at 20:49 EDT ,
--- NOTE | 2022-07-20 16:14 | ECHOD_ITS ---
Reason For Study: TIA/CVA Procedure This was a 2D Doppler, Color Flow transthoracic echocardiogram. Exam performed portable in patient room. Left Ventricle Normal LV size. The estimated ejection fraction is 55-60 %. Right Ventricle Normal right ventricle. Normal systolic function. Atria Normal left atrium. Normal right atrium. Mitral Valve The mitral valve is structurally normal. No prolapse or stenosis seen. Mild (1+) mitral valve insufficiency. Tricuspid Valve Normal tricuspid valve. Mild tricuspid valve insufficiency. Aortic Valve Normal aortic valve. Pulmonic Valve The pulmonic valve is not well visualized. Great Vessels Normal aortic root. MMode/2D Measurements & Calculations LVIDd: 3.9 cm IVSd: 0.77 cm Ao root diam: 2.9 cm LVIDs: 2.5 cm LVPWd: 0.76 cm RVDd: 2.4 cm FS: 37.1 % LAV(MOD-bp): 30.0 ml LVAd ap4: 18.4 cm2 LVAd ap2: 25.2 cm2 LAV(MOD-bp) Indexed: 20.4 ml/m2 LVLd ap4: 6.2 cm LVLd ap2: 7.8 cm LAV(MOD-sp2): 25.3 ml EDV(MOD-sp4): 46.2 ml EDV(MOD-sp2): 67.9 ml LAV(MOD-sp4): 35.0 ml EDV(sp4-el): 46.1 ml EDV(sp2-el): 69.0 ml LVAs ap4: 11.3 cm2 LVAs ap2: 15.9 cm2 LVLs ap4: 5.1 cm LVLs ap2: 6.4 cm ESV(MOD-sp4): 20.8 ml ESV(MOD-sp2): 33.0 ml ESV(sp4-el): 21.2 ml ESV(sp2-el): 33.3 ml EF(MOD-sp4): 55.0 % EF(MOD-sp2): 51.4 % EF(sp4-el): 54.0 % SV(MOD-sp4): 25.4 ml SV(MOD-sp2): 34.9 ml SV(sp4-el): 24.9 ml LA dimension(2D): 2.9 cm LA A4 area: 13.2 cm2 Time Measurements MV dec time: 0.14 sec Doppler Measurements & Calculations MV E max williams: 59.8 cm/sec Lat Peak E' Williams: 9.8 cm/sec Med Peak E' Williams: 7.9 cm/sec MV A max williams: 52.8 cm/sec E/E' lat: 6.1 E/E' med: 7.5 MV E/A: 1.1 MV dec slope: 441.0 cm/sec2 Ao V2 max: 118.8 cm/sec LV V1 max: 71.7 cm/sec Ao max P.6 mmHg LV V1 max P.1 mmHg PA V2 max: 92.2 cm/sec TR max williams: 310.2 cm/sec TR max P.5 mmHg ECHO/Echo Complete Interpretation Summary The estimated ejection fraction is 55-60 %. Mild MR No significant changes from previous echo Ordering Physician: Vijay Juárez Referring Physician: Amisha Torrez Performed By: Gracie Hawkins, CARIE, RVT
[2022-07-20 16:15] VITALS: BP 169/106; PULSE 72; RESP 16; TEMP 36.8; O2SAT 99; BMI 17.5
--- NOTE | 2022-07-20 16:33 | PCM.HP.STD ---
Documented by User: Neelam Jacobo NP, DESTINATION SPECIALIST-C 07/20/22 16:42 HPI - General General Date of Admission: 07/20/22 Date of Service: 07/20/22 Chief Complaint: Speech changes, confusion. HPI Narrative FREDDY WHITTINGTON, is a 76 F who presents to the emergency room due to speech changes, confusion and ataxia. Friend/family states they initially noticed her symptoms on Monday. They states she was having difficulty getting out her words, difficulty following conversation and appeared unsteady with walking. Friend states she was holding onto things while walking. Patient denies any unilateral weakness or focal deficits. She denies any recent fall or injury however she has notable abrasion on her forehead which she is unable to state what happened. Family/friend state patient symptoms have persisted since Monday. Patient reluctant to come to the hospital however with further convincing, patient amendable to seek medical attention. Patient currently denies any symptoms or complaints. She is slow to respond to questioning during HPI. She has a past medical history of hypertension, hyperlipidemia, history of TIA and tobacco dependence. [facility] Medical History (Updated 07/20/22 @ 15:36 by Ike Palacios MD) Macular degeneration Home Medications lisinopril 10 mg tablet 10 mg PO DAILY #30 tabs 02/25/19 [Rx Last Taken 07/20/22] aspirin 81 mg tablet,delayed release 81 mg PO DAILY heart health 07/20/22 [History Last Taken 07/19/22] Allergy/AdvReac Type Severity Reaction Status Date / Time No Known Allergies Allergy Verified 07/20/22 12:55 Family History other other (Denies maternal/paternal medical history including cardiac history.) Surgical History (Updated 07/20/22 @ 16:34 by Zulma Mckeon) History of cataract surgery Social History (Updated 07/20/22 @ 16:37 by Neelam Jacobo NP, DESTINATION SPECIALIST-C) household members: other details: Lives alone Smoking Status: Current every day smoker tobacco type: cigarettes Smoking packs per day: 0.5 Smoking cigarettes per day: 10.0 alcohol intake: never substance use type: does not use ROS Constitutional Constitutional: Denies change in weight, chills, fatigue, fever(s) or weakness Cardiovascular Cardiovascular: Denies chest pain, edema, lightheadedness, palpitations or syncope Respiratory/Chest Respiratory/Chest: Denies cough, dyspnea, productive cough, shortness of breath at rest, shortness of breath with exertion or wheezing Gastrointestinal Gastrointestinal: Denies abdominal pain, constipation, diarrhea, nausea or vomiting Genitourinary Genitourinary: Denies burning urination, difficulty urinating, dysuria, hematuria, urinary frequency, urinary incontinence or urinary urgency Musculoskeletal Musculoskeletal: Denies back pain, joint pain or muscle weakness Integumentary Integumentary: Denies erythema, lesions, rash or wounds Neurologic Neurologic: Reports abnormal speech and confusion; Denies dizziness, focal weakness, numbness, paresthesias, seizure-like activity or syncope Psychiatric Psychiatric: Denies anxiety or depression Hematologic/Lymphatic Hematologic/Lymphatic: Denies anemia, easy bleeding or easy bruising Allergic/Immunologic Allergic/Immunologic: Denies hives or asthma Vital Signs Vital Signs Vital Signs: 07/20/22 12:55 07/20/22 16:15 Temperature 97.7 F L 98.2 F Temperature Source Temporal Oral Pulse Rate 92 72 Respiratory Rate 14 16 Blood Pressure 128/102 H 169/106 H Blood Pressure Mean 110 127 Blood Pressure Source Monitor Blood Pressure Position Semi-Fowlers Blood Pressure Location Right Arm Pulse Ox 96 99 Oxygen Delivery Method Room Air Room Air Weight Weight: 102 lb 1.6 oz Body Mass Index (BMI) 17.5 Physical Exam Const alert and oriented x3 Constitutional Narrative: Patient alert and oriented however slow to respond. Nutritional Appearance: cachectic HEENT normocephalic and moist oral mucous membranes Eyes PERRL, EOMs intact bilaterally and conjunctivae normal Neck no lymphadenopathy Resp normal respiratory effort and clear to auscultation bilaterally Cardio regular rate, regular rhythm and no murmurs Peripheral Pulses: pulses 2+ throughout GI normal to inspection, nondistended, normoactive bowel sounds, non-tender and non-distended Extremity normal to inspection Skin no rashes or lesions noted Lesions: no lesions Rashes: no rashes Trauma: no lacerations or abrasions Neuro CN's II-XII intact bilaterally, no focal motor deficits, no sensory deficits noted and deep tendon reflexes 2+ bilaterally Psych mental status grossly normal and affect normal Results Lab / Micro Data Result Diagrams: 07/20/22 13:22 07/20/22 13:22 Labs: Laboratory Results - last 24 hr 07/20/22 13:22: WBC 9.2, RBC 4.80, Hgb 14.8, Hct 45.7, MCV 95.2, MCH 30.8, MCHC 32.4, RDW Std Deviation 45.4 H, RDW Coeff of [place] 12.8, Plt Count 207, MPV 9.3, Immature Gran % (Auto) 0.400, Neut % (Auto) 72.9 H, Lymph % (Auto) 17.8 L, [place] % (Auto) 7.9, Eos % (Auto) 0.7, Baso % (Auto) 0.3, Absolute Neuts (auto) 6.7, Absolute Lymphs (auto) 1.63, Nucleated RBC % 0 07/20/22 13:22: Sodium 139, Potassium 3.3 L, Chloride 102, Carbon Dioxide 30.0, Anion Gap 7, BUN 21 H, Creatinine 0.95, Estim Creat Clear Calc 35.15, Est GFR (MDRD) Af Amer 73, Est GFR (MDRD) Non-Af 61, BUN/Creatinine Ratio 22.0 H, Glucose 115 H, Calcium 11.2 H, Total Bilirubin 0.40, AST 15, ALT 13, Alkaline Phosphatase 73, Total Protein 6.8, Albumin 3.3, Globulin 3.5, Albumin/Globulin Ratio 0.9 07/20/22 15:11: Urine Color Yellow, Urine Clarity Sl. Cloudy, Urine pH 6.5, Ur Specific [place] 1.010, Urine Protein Negative, Urine Glucose (UA) Normal, Urine Ketones Negative, Urine Occult Blood 10 H, Urine Nitrite Negative, Urine Bilirubin Negative, Urine Urobilinogen Normal, Ur Leukocyte Esterase 25 H, Urine RBC 0 SEEN, Urine WBC 0 SEEN, Ur Squamous Epith Cells 0 SEEN, Urine Bacteria 1+, Urine Mucus 0 SEEN Radiology Impression Brain CT 07/20/22 13:34 IMPRESSION: Chronic involutional changes of the brain. Stable examination. Electronically Signed: Coleman Deshpande MD at 14:18 EDT , Chest X-Ray 07/20/22 14:10 IMPRESSION: Hyperinflation. The lungs are clear. Electronically Signed: Coleman Deshpande MD at 14:46 EDT , Assessment & Plan Assessment/Plan (1) HTN (hypertension): (2) TIA (transient ischemic attack): PLAN: Plan 1. Speech changes, confusion-rule out CVA. Reported history of TIA. Brain CT with chronic changes. Obtain MRI of brain, MRA of head and neck. Echocardiogram. Aspirin, statin. Lipid profile in AM. Check hemoglobin A1c. PT/OT/ST. 2. Hypertension-permissive secondary to #1. Hold lisinopril. 3. Mild hypokalemia-replace per protocol, trend BMP. 4. Tobacco dependence-encouraged cessation. DVT prophylaxis-Heparin subcu This patient was seen by Neelam Jacobo NP-Juliana under the supervision of Dr. Juárez. Time spent examining patient, reviewing data and subsequent management of care: 24 minutes Documented by User: Dr. Vijay Juárez DO 07/20/22 22:00 HPI - General General Date of Admission: 07/20/22 [facility] Medical History (Updated 07/20/22 @ 15:36 by Ike Palacios MD) Macular degeneration Home Medications lisinopril 10 mg tablet 10 mg PO DAILY #30 tabs 02/25/19 [Rx Last Taken 07/20/22] aspirin 81 mg tablet,delayed release 81 mg PO DAILY heart health 07/20/22 [History Last Taken 07/19/22] Allergy/AdvReac Type Severity Reaction Status Date / Time No Known Allergies Allergy Verified 07/20/22 12:55 Family History other Surgical History (Updated 07/20/22 @ 16:34 by Zulma Mckeon) History of cataract surgery Social History (Updated 07/20/22 @ 16:37 by Neelam Jacobo NP, DESTINATION SPECIALIST-C) household members: other details: Lives alone Smoking Status: Current every day smoker tobacco type: cigarettes Smoking packs per day: 0.5 Smoking cigarettes per day: 10.0 alcohol intake: never substance use type: does not use Results Lab / Micro Data Result Diagrams: 07/20/22 13:22 07/20/22 13:22 Assessment & Plan Assessment/Plan (1) HTN (hypertension): (2) TIA (transient ischemic attack): Charges/Coding Addendum Addendum: Was seen and examined today independently of Neelam Jacobo, she came to the ER for evaluation of confusion at the urging of her family today, she had been noted to be confused over the last 2 days, work-up in the emergency room included a CT of the head which showed an old lacunar infarct but no acute process. Patient's labs were remarkable for a potassium of 3.3 and a BUN of 21, patient CBC was unremarkable. Urinalysis showed +1 bacteria but no white cells or red cells. On examination she appeared in good health and spirits, she appeared her stated age, she does not appear to be in any distress. Vital signs as documented. Skin warm and dry and without overt rashes. Neck without JVD, thyroid appears normal, trachea is midline, neck is supple. Lungs clear, normal air movement was noted. Heart exam notable for regular rhythm, normal sounds and absence of murmurs, rubs or gallops. Abdomen unremarkable and without evidence of organomegaly, masses, or abdominal aortic enlargement, bowel sounds are present in all 4 quadrants, no abdominal tenderness was noted. Extremities nonedematous, no cyanosis was noted, no clubbing was noted. Neuro: Cranial nerves II through XII are grossly intact, no focal motor deficits were noted, sensation to light touch and pinprick is intact, motor exam 5/5 throughout. Psych: Patient is alert and oriented x3, she does not appear anxious or depressed, she does not appear agitated. Impression: #1 mild confusion-etiology unclear at this point, patient will be placed into observation status on PCU, she will undergo an MRI of the brain, and MRA of the head and neck, depending on these results, she may need further testing. Patient will be seen by PT, OT, and speech therapy. #2 essential hypertension-patient will remain on her present medications #3 cerebrovascular disease-patient has an old lacunar infarct on her CT of her head, she will remain on Ecotrin 81 mg daily #4 hypokalemia-this is mild, patient was given oral potassium, BMP will be rechecked I have reviewed Neelam Jacobo's history and physical including her medical assessment and plan of care and endorse it. Total clinical time spent by myself addressing the patient's medical issues, reviewing the data, and collaborating with patient's care team: 46 minutes Additional note: Patient's MRA of the neck resulted in showing a stenotic lesion of the left external carotid artery, I talked with vascular surgery (Dr. Doe) emiliano by phone and he will see the patient in consultation tomorrow, I have ordered carotid duplex ultrasound for the patient tomorrow. I talked with the patient's daughter (Darlin) by phone emiliano and let her know of the results and medical plan of care. No acute stroke was detected on the patient's MRI. Visit Charges OBSV E&M: [id number] Initial observation care L3
[2022-07-20 16:36] VITALS: PULSE 73
[2022-07-20 17:23] VITALS: BMI 17.5
[2022-07-20 17:25] LABS: Hemoglobin A1c 5.3 % (3.8-5.6)
[2022-07-20 19:00] VITALS: PULSE 72
--- NOTE | 2022-07-20 19:36 | MRI_ITS ---
STUDY: MRA NECK WITH AND WITHOUT CONTRAST REASON FOR EXAM: Female, 76 years old. confusion TECHNIQUE: 3-D ixsi-kh-ekzgyr (TOF) imaging was performed in an 1.5 T MRI scanner. 10mL Dotarem IV was administered for the contrast enhanced images. COMPARISON: None. FINDINGS: RIGHT CAROTID ARTERIES: Normal right common carotid artery (CCA). Normal right common carotid bulb. Normal origin of the right internal carotid (ICA) artery without a hemodynamically significant stenosis. Normal visualized cervical portion of the right internal carotid artery. Normal origin of the right external carotid artery (ECA). LEFT CAROTID ARTERIES: Normal left common carotid artery (CCA). Normal left common carotid bulb. Normal origin of the left internal carotid (ICA) artery without a hemodynamically significant stenosis. Normal visualized cervical portion of the left internal carotid artery. Severely stenotic origin of the left external carotid artery (ECA). VERTEBRAL ARTERIES: Normal antegrade flow within the bilateral vertebral artery without a hemodynamically significant stenosis. MRI/MRA Neck WITH and W/O Contrast IMPRESSION: Severely stenosed origin of the right external carotid. Otherwise no significant atherosclerotic disease Electronically Signed: Chris Torres MD at 20:53 EDT ,
[2022-07-20 20:15] VITALS: BP 153/100; PULSE 64; RESP 16; TEMP 37.3; O2SAT 96
--- NOTE | 2022-07-20 21:51 | CDU_ITS ---
Reason For Study: left external carotid stenosis Rt. Velocities/BP Lt. Velocities/BP Prox CCA 62.6/17.3 cm/sec. Prox CCA 52.0/11.3 cm/sec. Mid CCA 60.7/19.2 cm/sec. Mid CCA 54.2/17.9 cm/sec. Dist CCA 58.9/18.2 cm/sec. Dist CCA 54.2/17.9 cm/sec. Prox ICA 40.9/16.3 cm/sec. Prox ICA 37.1/10.7 cm/sec. Mid ICA 50.7/22.5 cm/sec. Mid ICA 40.9/17.3 cm/sec. Dist ICA 69.1/28.6 cm/sec. Dist ICA 57.0/24.8 cm/sec. Rt. ICA/CCA = 1.1. Lt. ICA/CCA = 1.1. Prox ECA 98.6/16.3 cm/sec. Prox ECA 66.3/12.4 cm/sec. Rt. Vert. 38.4/11.4 cm/sec. Lt. Vert. 40.0/10.7 cm/sec. Right Extracranial There is intimal thickening but no significant atherosclerotic plaque noted in the right common carotid artery. There is heterogeneous, irregular atherosclerotic plaque noted in the right internal carotid artery. There is heterogeneous, irregular atherosclerotic plaque noted in the right external carotid artery. Antegrade flow is noted in the right vertebral artery. Left Extracranial There is intimal thickening but no significant atherosclerotic plaque noted in the left common carotid artery. There is heterogeneous, irregular atherosclerotic plaque noted in the left internal carotid artery. The left internal carotid artery is very tortuous. There is heterogeneous, irregular atherosclerotic plaque noted in the left external carotid artery. Antegrade flow is noted in the left vertebral artery. Procedure Carotid Duplex 25263. This is a Carotid Duplex examination using B-mode, color flow and specral Doppler. The exam was diagnostic. Exam performed portable in patient room. VL/Carotid Duplex Ultrasound Interpretation Summary Mild (<50%) stenosis right extracranial internal carotid. Mild (<50%) stenosis left extracranial internal carotid. Patent and antegrade vertebrals bilaterally. Ordering Physician: Vijay Juárez Performed By: Damon Branch RVT
[2022-07-20 22:44] VITALS: BP 160/90; PULSE 72; RESP 18; TEMP 36.6; O2SAT 97
[2022-07-20] MEDS: Heparin Injection (Vial) 5,000 UNIT/ML VIAL 5000 UNIT SC (22:47)
[2022-07-20] MEDS: Atorvastatin Calcium 80 MG Tablet PO (22:47)
[2022-07-20] MEDS: 0.9% Saline Lock 10 ML Syringe IV (22:54)
[2022-07-21 03:00] VITALS: PULSE 74
[2022-07-21 04:30] VITALS: BP 168/90; PULSE 75; RESP 16; TEMP 36.6; O2SAT 95
[2022-07-21 07:14] VITALS: PULSE 62
[2022-07-21 07:30] LABS: Anion Gap 8 (5-15); BUN 19 mg/dL (7-18); BUN/Creat Ratio 23.4 RATIO (10-20); Calcium,Total 9.5 mg/dL (8.5-10.1); Chloride 109 mmol/L (98-107); Cholesterol 167 mg/dL (200); Creatinine, Serum 0.81 mg/dL (0.55-1.02); EST Glomerular Filtration Rate 73 mL/min (>60); Est Glom Filt Rate - Afr Amer 88 mL/min (>60); Glucose 81 mg/dL (74-106); High Density Lipoprotein 55 mg/dL; Potassium 3.8 mmol/L (3.5-5.1); Sodium Level 143 mmol/L (136-145); Triglycerides 179 mg/dL; Very Low Density Lipoprotein 36 mg/dL (5-40)
[2022-07-21 08:43] VITALS: BP 147/100; PULSE 78; RESP 16; TEMP 36.3; O2SAT 95
[2022-07-21] MEDS: Aspirin E.C. 81 MG Tablet PO (08:51)
[2022-07-21] MEDS: Lisinopril 10 MG Tablet PO (08:51)
[2022-07-21] MEDS: Heparin Injection (Vial) 5,000 UNIT/ML VIAL 5000 UNIT SC (08:51)
[2022-07-21 10:22] VITALS: BMI 17.5
--- NOTE | 2022-07-21 13:01 | DCINST_ITS ---
Discharge Instructions Diet Discharge Diet: Low fat / Low cholesterol Dressing / Incision Call your doctor if you observe: Fever of 101 or Higher, Shortness of breath, Dizziness, Fainting spells, Swelling in the ankles, Chest pain and Increased palpitations (irregular heartbeat) Follow Up Care Test Results: Test results from this visit will be discussed in further detail at your follow- up appointment, if applicable. Discharge Plan Admission Admit Date/Time: 07/20/22 15:56 Attending Provider: Rene Davis Primary Care Provider: Amisha Torrez Consulting Providers: Hai Doe ; Vijay Juárez Discharge Orders/Prescriptions Prescriptions: New atorvastatin 80 mg Tablet 80 mg PO QHS Qty: 30 0RF Continued lisinopril 10 MG tablet 10 mg PO DAILY Qty: 30 0RF aspirin 81 mg Tablet,Delayed Release (Dr/Ec) 81 mg PO DAILY Referrals / Follow Up: Amisha Torrez MD [Primary Care Provider] - Chris Clemente MD [Non-Staff] - Disposition Disposition (needs filled in before D/C Order can be placed): Home, Self Care
--- NOTE | 2022-07-21 13:03 | PCM.DC.SUM ---
Providers Date of Admission: 07/20/22 Primary Care Physician: Dr. Amisha Torrez MD Consultations 07/20/22 21:51 Consult: Vascular Surgery Routine Consulting Provider: Hai Doe Reason for Consult: left carotid stenosis EMERGENT Consult: No MD Notified: Yes Date Notified: 07/20/22 Time Notified: 21:52 Method of Notification: Verbal Reason For Visit: MENTAL STATUS CHANGE Diagnosis Discharge Diagnosis (1) HTN (hypertension): Status: Chronic Code(s): I10 - Essential (primary) hypertension (2) TIA (transient ischemic attack): Status: Acute Code(s): G45.9 - Transient cerebral ischemic attack, unspecified Medications at Discharge Home Medications lisinopril 10 mg tablet 10 mg PO DAILY #30 tabs 02/25/19 aspirin 81 mg tablet,delayed release 81 mg PO DAILY heart health 07/20/22 atorvastatin 80 mg tablet 80 mg PO QHS #30 tabs 07/21/22 Hospital Course Operations None Procedures 2-D Echocardiogram Summary of Care Provided Minutes Spent on Discharge: 40 Hospital Course: Per HPI: RFEDDY WHITTINGTON, is a 76 F who presents to the emergency room due to speech changes, confusion and ataxia.? Friend/family states they initially noticed her symptoms on Monday.? They states she was having difficulty getting out her words, difficulty following conversation and appeared unsteady with walking.? Friend states she was holding onto things while walking.? Patient denies any unilateral weakness or focal deficits.? She denies any recent fall or injury however she has notable abrasion on her forehead which she is unable to state what happened.? Family/friend state patient symptoms have persisted since Monday.? Patient reluctant to come to the hospital however with further convincing, patient amendable to seek medical attention.? Patient currently denies any symptoms or complaints.? She is slow to respond to questioning during HPI.? She has a past medical history of hypertension, hyperlipidemia, history of TIA and tobacco dependence. Hospital Course: 1. TIA/history of CVA/HTN/external carotid stenosis?76-year-old female presented to the hospital speech changes and confusions. This has resolved and her NIH is 0. She did have an MRI of her brain which showed previous old lacunar infarcts but nothing acute. Her MRA of her neck showed severe stenosis of her right external carotid artery, vascular surgery was notified and can follow-up with her as an outpatient. Symptoms have completely resolved, will continue with her aspirin and her lisinopril, will also add Lipitor. I did discuss with her tobacco cessation secondary to decreasing her risk of stroke. I discussed with her the plan for discharge today and she expressed understanding of the risk benefits going home and would like to go home today. Physical Exam Narrative General: Alert, Oriented x3, Cooperative, No apparent distress HEENT: Atraumatic, PERRLA, EOMI, Normocephalic Oral: Moist Mucosa Neck: Supple, No JVD Lungs: Clear to auscultation, Normal air movement, No rhonchi, No wheeze, No rales Cardiovascular: Regular rate, Regular Rhythm, Normal S1, Normal S2, No murmurs Abdomen: Soft, Non Tender, Non-Distended, No Hepato-splenomegaly Extremities: No edema, Capillary Refill Less than 3 Seconds Skin: No rashes, No breakdown Musculoskeletal: No Tenderness to Palpation of Joints or Extremities Neurological: Cranial nerves II-XII grossly intact, Motor Exam 5/5 strength throughout, Sensory exam intact to light touch and pain Psych/Mental Status: Normal Affect, Appropriate Medical Records Data Medical Nutrition Assessment Dietitian: Malnutrition Criteria Met Start: 07/21/22 10:35 Freq: Status: Active Protocol: Document 07/21/22 10:35 (Rec: 07/21/22 10:35 [id number]) Nutrition Malnutrition Evidence of Malnutrition Exists Yes Malnutrition (severe): Chronic Evidenced By Suboptimal Energy Intake ( Severe),Physical Changes ( Severe) Clinical Problem Chronic Disease or Condition Related Malnutrition Etiology chronic, severe malnutrition r /t inadequate energy intake Signs/Symptoms as evidenced by estimated PO intake meeting <75% of estimated energy needs; Severe muscle wasting, fat loss per physical exam in orbital, temporal, clavicle, and acromion areas; BMI 17.5 Status Active Problem Recommendation Dietitian Recommendations/Changes regular diet w/ 240mL ensure plus high protein at meals given chronic malnutrition; may benefit from appetite stimulant. Weight / BMI Weight Weight: 102 lb 1.925 oz Body Mass Index (BMI) 17.5 ABG / Lab / Microbiology Data Result Diagrams: 07/20/22 13:22 07/21/22 06:30 Laboratory: Laboratory Results - last 24 hr 07/20/22 13:22: WBC 9.2, RBC 4.80, Hgb 14.8, Hct 45.7, MCV 95.2, MCH 30.8, MCHC 32.4, RDW Std Deviation 45.4 H, RDW Coeff of [place] 12.8, Plt Count 207, MPV 9.3, Immature Gran % (Auto) 0.400, Neut % (Auto) 72.9 H, Lymph % (Auto) 17.8 L, [place] % (Auto) 7.9, Eos % (Auto) 0.7, Baso % (Auto) 0.3, Absolute Neuts (auto) 6.7, Absolute Lymphs (auto) 1.63, Nucleated RBC % 0 07/20/22 13:22: Sodium 139, Potassium 3.3 L, Chloride 102, Carbon Dioxide 30.0, Anion Gap 7, BUN 21 H, Creatinine 0.95, Estim Creat Clear Calc 35.15, Est GFR (MDRD) Af Amer 73, Est GFR (MDRD) Non-Af 61, BUN/Creatinine Ratio 22.0 H, Glucose 115 H, Calcium 11.2 H, Total Bilirubin 0.40, AST 15, ALT 13, Alkaline Phosphatase 73, Total Protein 6.8, Albumin 3.3, Globulin 3.5, Albumin/Globulin Ratio 0.9 07/20/22 13:22: Hemoglobin A1c 5.3 07/20/22 15:11: Urine Color Yellow, Urine Clarity Sl. Cloudy, Urine pH 6.5, Ur Specific [place] 1.010, Urine Protein Negative, Urine Glucose (UA) Normal, Urine Ketones Negative, Urine Occult Blood 10 H, Urine Nitrite Negative, Urine Bilirubin Negative, Urine Urobilinogen Normal, Ur Leukocyte Esterase 25 H, Urine RBC 0 SEEN, Urine WBC 0 SEEN, Ur Squamous Epith Cells 0 SEEN, Urine Bacteria 1+, Urine Mucus 0 SEEN 07/21/22 06:30: Sodium 143, Potassium 3.8, Chloride 109 H, Carbon Dioxide 26.0, Anion Gap 8, BUN 19 H, Creatinine 0.81, Estim Creat Clear Calc 43.20, Est GFR (MDRD) Af Amer 88, Est GFR (MDRD) Non-Af 73, BUN/Creatinine Ratio 23.4 H, Glucose 81, Calcium 9.5, Triglycerides 179, Cholesterol 167, LDL Cholesterol 76, VLDL Cholesterol 36, HDL Cholesterol 55 Radiography Diagnostic Testing: Radiology Impression Brain CT 07/20/22 13:34 IMPRESSION: Chronic involutional changes of the brain. Stable examination. Electronically Signed: Coleman Deshpande MD at 14:18 EDT , Chest X-Ray 07/20/22 14:10 IMPRESSION: Hyperinflation. The lungs are clear. Electronically Signed: Coleman Deshpande MD at 14:46 EDT , Brain MRI 07/20/22 16:08 IMPRESSION: Moderate atrophy and advanced periventricular white matter ischemic change without evidence for acute infarct. Multiple old bilateral lacunar infarcts. Electronically Signed: Chris Torres MD at 20:49 EDT , Head MRA 07/20/22 16:08 IMPRESSION: Normal MRA of the head Electronically Signed: Chris Torres MD at 20:51 EDT , Echocardiogram 07/20/22 16:14 Interpretation Summary The estimated ejection fraction is 55-60 %. Mild MR No significant changes from previous echo Ordering Physician: Vijay Juárez Referring Physician: Amisha Torrez Performed By: Gracie Hawkins, EDWINCS, RVT Neck MRA 07/20/22 19:36 IMPRESSION: Severely stenosed origin of the right external carotid. Otherwise no significant atherosclerotic disease Electronically Signed: Chris Torres MD at 20:53 EDT Reading Location ID and State: [id number] [facility] , Service support , D/C Instructions Discharge Diet: Low fat / Low cholesterol Call your doctor if you observe: Fever of 101 or Higher, Shortness of breath, Dizziness, Fainting spells, Swelling in the ankles, Chest pain and Increased palpitations (irregular heartbeat) Meaningful Use Info Meaningful Use Diagnoses (Choose all that apply): None applicable Discharge Plan Admission Admit Date/Time: 07/20/22 15:56 Attending Provider: Rene Davis Primary Care Provider: Amisha Torrez Consulting Providers: Hai Doe ; Vijay Juárez Discharge Orders/Prescriptions Prescriptions: New atorvastatin 80 mg Tablet 80 mg PO QHS Qty: 30 0RF Continued lisinopril 10 MG tablet 10 mg PO DAILY Qty: 30 0RF aspirin 81 mg Tablet,Delayed Release (Dr/Ec) 81 mg PO DAILY Referrals / Follow Up: Hai Doe MD [Med Staff - Active Staff] - Within 3 Months Amisha Torrez MD [Primary Care Provider] - Chris Clemente MD [Non-Staff] - Disposition Disposition (needs filled in before D/C Order can be placed): Home, Self Care Charges/Coding Visit Charges OBSV E&M: 91875 Observation care discharge
--- NOTE | 2022-07-21 13:49 | CASEMGMT ---
Addendum entered by Julee Selby 07/21/22 14:13: Pt ambulated independently in garcia with RN and states no concerns. Speech did recommend OP speech therapy for pt and pt agrees to take script but declines for it to be faxed to [facility] at this time. Pt/daugher voices no further questions/concerns/needs. Teri RAMIREZ CM Original Note: Pt has up independent in room and Zulma RN to ambulate pt in garcia. Teri RAMIREZ CM
--- NOTE | 2022-07-21 13:49 | CASEMGMT ---
Addendum entered by Julee Selby 07/21/22 13:58: Pt ambulated independently in hallway with RN. This RN CM to room to discuss d/c plan and pt/family state no concerns with going home at time of discharge. Pt/family state no need for any further therapy/resources. Teri RAMIREZ CM Original Note: Pt has up independent in room and Zulma RN to ambulate pt in garcia. Teri RAMIREZ CM
[2022-07-21 14:09] VITALS: BP 132/85; PULSE 76; RESP 18; TEMP 36.7; O2SAT 96
== END 2022-07-21 13:02 | disposition home or self-care (01) ==
LOC: ED 15:36 → PCU 15:58
PROVIDERS: Nurse Practitioner Family; Admitting Provider Internal Medicine; Emergency Provider Emergency Medicine; PCP Family Medicine; Visit Provider Family Medicine
DX: G45.9 Transient cerebral ischemic attack, unspecified (principal); M48.02 Spinal stenosis, cervical region; I10 Essential (primary) hypertension; E87.6 Hypokalemia; R27.0 Ataxia, unspecified; F17.210 Nicotine dependence, cigarettes, uncomplicated; Z79.82 Long term (current) use of aspirin; E78.5 Hyperlipidemia, unspecified; R41.0 Disorientation, unspecified; I65.21 Occlusion and stenosis of right carotid artery; Z79.899 Other long term (current) drug therapy; R47.89 Other speech disturbances
CPT/HCPCS: 36415; 70450; 70544; 70549; 70551; 71045; 80048; 80053; 80061; 81001; 83036; 85025; 92523; 93005; 93306; 93880; 96360; 96361; 96372; 97802; 99218; 99282; 99406; A9575; J7030; A4216; G0378

== ENCOUNTER → 2022-09-14 | Outpatient (CLI) | payer MEDICARE, OTHER, SELFPAY ==
[2022-09-14 15:14] LABS: Absolute Lymphocyte Count 1.81 X10^3/uL (0.83-4.51); Absolute Neutrophil Count 5.1 X10^3/uL (2.0-7.7); Basophil# 0.03 X10^3/uL; Basophil% 0.4 % (0-1); Eosinophil# 0.55 X10^3/uL; Eosinophils% 6.7 % (0-5); Hematocrit 48.3 % (37-47); Hemoglobin 15.1 g/dL (12.0-15.0); Lymphocyte # 1.81 X10^3/ul (0.83-4.51); Mean Corp Hgb Conc 31.3 g/dL (32-36); Mean Corpuscular Hgb 30.5 pg (27.0-32.0); Mean Corpuscular Volume 97.6 fL (81-99); Mean Platelet Vol. 9.4 fl (6.2-12.0); Monocyte# 0.75 X10^3/uL; Monocyte% 9.1 % (0-10); NRBC Flagged by Analyzer 0 % (0-5); Neutrophil # 5.08 X10^3/uL (2.7-7.7); Neutrophil % 61.6 % (47-70); Platelet Count 253 K/mm3 (150-450); RBC Distribution Width CV 13.5 % (11.6-14.6); RBC Distribution Width SD 48.9 fl (35.1-43.9); Red Blood Count 4.95 M/mm3 (4.2-5.4); White Blood Count 8.2 K/mm3 (4.4-11.0)
[2022-09-14 15:37] LABS: ALB/GLOB Ratio 1.1 RATIO (0.9-2.4); AST(SGOT) 19 U/L (15-37); Alanine Aminotransfer ALT/SGPT 15 U/L (13-56); Albumin, Serum 3.7 g/dL (3.2-5.0); Alkaline Phosphatase 97 U/L (45-117); Anion Gap 5 (5-15); BUN 21 mg/dL (7-18); BUN/Creat Ratio 22.5 RATIO (10-20); Calcium,Total 9.6 mg/dL (8.5-10.1); Chloride 110 mmol/L (98-107); Cholesterol 219 mg/dL (200); Creatinine, Serum 0.93 mg/dL (0.55-1.02); EST Glomerular Filtration Rate 62 mL/min (>60); Est Glom Filt Rate - Afr Amer 75 mL/min (>60); Globulin 3.5 g/dL (2.2-4.2); Glucose 96 mg/dL (74-106); High Density Lipoprotein 77 mg/dL; Potassium 3.7 mmol/L (3.5-5.1); Protein, Total 7.2 g/dL (6.4-8.2); Sodium Level 142 mmol/L (136-145); Triglycerides 166 mg/dL; Very Low Density Lipoprotein 33 mg/dL (5-40)
== END | disposition home or self-care (01) ==
LOC: BFHLAB 11:29
PROVIDERS: PCP Family Medicine; Visit Provider Family Medicine
DX: I65.21 Occlusion and stenosis of right carotid artery (principal); I10 Essential (primary) hypertension
CPT/HCPCS: 36415; 80053; 80061; 85025

== ENCOUNTER 2023-01-13 16:41 | Observation (INO) | payer MEDICARE, OTHER, SELFPAY ==
[2023-01-13] VITALS (8 sets, daily range): BP systolic 119–147; BP diastolic 87–109; PULSE 70–106; RESP 14–19; TEMP 35.9–36.7; O2SAT 93–99; BMI 18.1; BMI 17.6
--- NOTE | 2023-01-13 16:52 | CT_ITS ---
INDICATION: Neuro deficit, acute, stroke suspected EXAMINATION: CT BRAIN - CT Head Stroke Protocol W/O Contrast Injection TECHNIQUE: Multiple axial images were obtained of the head without intravenous contrast. A radiation dose optimization technique was used for this scan. IV Contrast dosage and agent: None. COMPARISON: July 20, 2022 MRI FINDINGS: BRAIN PARENCHYMA: No intra- or extra-axial hemorrhage. Advanced periventricular white matter ischemic changes. Old left lacunar infarcts and tiny old right lacunar infarct. No intracranial mass or mass effect. There is preservation of the murillo/white matter interface. Posterior fossa structures are unremarkable. Megacisterna magna noted consistent with normal variant CSF SPACES: Moderate atrophy. Basal cisterns are patent. Calcific plaquing of the cavernous carotids. Vertebrobasilar dolichoectasia consistent with systemic hypertension. CALVARIUM, SKULL BASE, PARANASAL SINUSES AND MASTOID AIR CELLS: Clear. No discrete lytic or blastic abnormalities. ORBITS: Postsurgical changes of the orbits CT/STROKE Brain/Head without Cont IMPRESSION: Moderate atrophy and advanced periventricular white matter ischemic changes with multiple old bilateral lacunar infarcts.. No acute bleed. If concern for acute infarct MRI recommended N.B. : The above Results were Read Back by Chris Torres MD to Constantino Munguia MD, and understanding confirmed on 01/13/2023 17:43:39 (ET). Electronically Signed: Chris Torres MD at 17:54 EST ,
--- NOTE | 2023-01-13 16:56 | EDS_ITS ---
HPI History of Present Illness Chief Complaint: Neuro S/Sx Detail of Chief Complaint: Symptoms similar to prior stroke Informant: family Limited: other (Patient not certain why she is here) Onset/Context/Timing Onset: - (Last known well January 11 at 11:45 AM) Context: - (Unknown) Timing: Continuous (Presumed) Quality and Location: Positive for Expressive Aphasia Onset: Last known well January 11 at 11:45 AM Current Severity: Mild Maximum Severity: Mild Worsened by: Nothing Relieved by: Not Associated Symptoms Associated Symptoms: Negative for Headache, Nausea, Vomiting or Chest Pain Narrative Narrative: Patient is a 77-year-old woman who lives alone. She has history of prior stroke with expressive aphasia. She is on aspirin and lisinopril. Family brought her to the emergency department because of her difficulty finding her words. Daughter states this is similar to when she had a prior stroke. Patient denies headache. Patient denies double vision, blurred vision loss of vision. Patient denies numbness or tingling or motor dysfunction upper or lower extremities. Patient denies problems with swallowing. Patient denies problems with coordination or Prior similar symptoms: Yes Recent Illness/Hospitalization: No PFSH PFSH Medical History HTN (hypertension) Macular degeneration Smoker TIA (transient ischemic attack) Home Medications lisinopril 10 mg tablet 10 mg PO DAILY #30 tabs 02/25/19 [Rx Last Taken 07/20/22] aspirin 81 mg tablet,delayed release 81 mg PO DAILY heart health 07/20/22 [History Last Taken 07/19/22] Allergy/AdvReac Type Severity Reaction Status Date / Time No Known Allergies Allergy Verified 10/11/22 13:05 Surgical History History of cataract surgery Social History household members: other details: Lives alone Smoking Status: Current every day smoker tobacco type: cigarettes alcohol intake: never substance use type: does not use ROS ROS ED Review of Systems ROS Unobtainable: due to mental status and other Details: Per HPI narrative. Limited to the fact the patient does not know why she is here and is having trouble finding words EXAM Physical Exam Const Vital Signs: 01/13/23 16:42 01/13/23 16:52 01/13/23 16:52 Temperature 96.7 F L Temperature Source Temporal Pulse Rate 106 H 70 Respiratory Rate 16 16 Blood Pressure 143/109 H 119/108 H Blood Pressure Mean 120 111 Pulse Ox 99 97 Oxygen Delivery Method Room Air Room Air Room Air Positive well nourished and well developed General Appearance ED: well developed and NAD HEENT Reports TM's clear and moist mucous membranes atraumatic Nose: other Other Details: Normal Tympanic Membrane ED: Yes TM's clear Eyes PERRL and EOMs intact bilaterally Eyes Narrative: There is no nystagmus. There is no APD. General Eye ED: Negative for pale conjunctiva or scleral icterus Neck no lymphadenopathy, supple and no JVD Chest Wall inspection of chest normal and palpation of chest normal Resp normal respiratory effort and clear to auscultation bilaterally Cardio Rate: regular rate Rhythm: regular rhythm Heart Sounds: S1 normal and S2 normal GI normal to inspection, nondistended, normoactive bowel sounds, soft to palpation, non-tender, non-distended and no masses GI Narrative: There is no palpable pulsatile mass. Remi bruit. Back/Spine no CVA tenderness Neuro No oriented x3, CN's II-XII intact bilaterally and no sensory deficits noted Danna Coma Scale: document GCS findings Spontaneous Obeys Commands Confused 14 Sensorium / Orientation: alert, oriented to person and oriented to place; Negative for oriented to time Speech: speech normal Gait (Neuro): normal gait Psych mental status grossly normal Skin no wounds General Skin Exam: Negative for jaundice Lesions: no lesions Rashes: no rashes NIHSS NIHSS Initial: 1a Level of Consciousness: 0 1b LOC Questions (Score 2 if aphasic/stupor): 1 1c LOC Commands (Only score 1st attempt): 0 2 Best Gaze (If aphasic, use reflexive mvmts.): 0 3 Visual: 0 4 Facial Palsy: 0 5 Motor Arm Right (UN = amputation/fusion): 0 5 Motor Arm Left: 0 6 Motor Leg Right: 0 6 Motor Leg Left: 0 7 Limb ataxia (Only + if out of proportion): 0 8 Sensory (Aphasia/stupor=0 or 1, coma=2): 0 9 Best Language: 1 10 Dysarthria (mute, coma=2, intubated=UN): 0 11 Extinction and Inattention (only scored if +): 0 Total Score: 2 MDM MDM MDM Narrative Medical decision making narrative: Patient presents with symptoms consistent with stroke causing expressive aphasia. Patient is normally oriented according to family members. She was unaware why she was brought here. Stroke work-up was initiated. Prior records were reviewed. Since patient is outside the window for thrombolytics or retrieval CT of the head without contrast was ordered. He will require admission for further work-up. Stroke order set was initiated. History & Record Review Additional record(s) reviewed:: Prior inpatient record (Admitted July 2022 for TIA. She did have similar presentation.), Prior ED visit and Prior labs Radiography Diagnostic Testing: Clinical Impression(s) from Imaging Studies Brain CT 01/13/23 16:52 IMPRESSION: Moderate atrophy and advanced periventricular white matter ischemic changes with multiple old bilateral lacunar infarcts.. No acute bleed. If concern for acute infarct MRI recommended N.B. : The above Results were Read Back by Chris Torres MD to Consatntino Munguia MD, and understanding confirmed on 01/13/2023 17:43:39 (ET). Electronically Signed: Chris Torres MD at 17:54 EST , ADDENDUM: 01/13/23 1801 IMPRESSION: Moderate atrophy and advanced periventricular white matter ischemic changes with multiple old bilateral lacunar infarcts.. No acute bleed. If concern for acute infarct MRI recommended N.B. : The above Results were Read Back by Chris Torres MD to Constantino Munguia MD, and understanding confirmed on 01/13/2023 17:43:39 (ET). Electronically Signed: Chris Torres MD at 17:54 EST , Chest X-Ray 01/13/23 17:24 IMPRESSION: No acute cardiopulmonary pathology. Electronically Signed: Chris Torres MD at 17:56 EST , EKG Initial EKG: Attestation: I personally reviewed and interpreted this EKG as follows: Interpretation: Sinus Rhythm (Heart rate is 96. There are premature atrial complexes. There is artifact which the computer is reading ST and T wave abnormality. IN interval is 144 ms. Cures duration 80 ms. QT duration 336 ms. [place] is normal.) and No Acute Injury Pattern Management Discussion w/another healthcare provider: Hospitalist Discharge Plan Triage Chief Complaint: Neuro S/Sx ED Provider: Constantino Munguia Dx/Rx/DC Orders Primary Care Provider: Amisha Torrez
--- NOTE | 2023-01-13 17:24 | RAD_ITS ---
STUDY: X-RAY CHEST REASON FOR EXAM: Female, 77 years old. Neuro deficit, acute, stroke suspected TECHNIQUE: AP portable COMPARISON: July 20, 2022 FINDINGS: The lungs are clear and expanded. There is no demonstrated pleural abnormality. Normal size heart. Normal mediastinum and hermilo. Normal visualized pulmonary arteries. Tortuous calcified aortic arch and descending thoracic aorta. Dorsal spine demonstrates scoliosis and degenerative change. Normal visualized ribs, clavicles, and shoulders. There is no demonstrated abnormality of the visualized soft tissue structures of the upper abdomen. RAD/Chest 1 View IMPRESSION: No acute cardiopulmonary pathology. Electronically Signed: Chris Torres MD at 17:56 EST ,
--- NOTE | 2023-01-13 17:53 | PCM.HP.STD ---
HPI - General General Date of Admission: 01/13/23 Date of Service: 01/13/23 Chief Complaint: neuro symptoms HPI Narrative FREDDY WHITTINGTON, is a 77 Fwith a PMH as outlined who presents via the ED on 01/13/2023 with a complaitn of difficulty finding words. She has a PMH of stroke with expressive aphasia. Her last known well was 01/09/2023 when according to her children they spoke to her and she was fine at that point. However patient says she spoke to her neighbor yesterday who noted that patient was confused. Family went to check on her on the day of admission and she was noted to be confused and had difficulty finding words so she was brought into the ED. She denied any weakness in her extremities and denied any dizziness or lightheadedness, numbness or tingling. His symptoms had essentially resolved by the time she came into the ED. She denied any focal weakness or any other symptoms. Her NIH was 1 at time of evaluation in the ED. Vitals in the ED were temp of 96.7F, BP of 143/109, RR of 16 and she was saturating at 99% on room air. CXR showed no acute cardiopulmonary process. CT of the brain showed moderate atrophy and advanced periventricular white matter ischemic changes with multiple old bilateral lacunar infarcts with no acute bleed. She has been admitted to be managed for expressive aphasia concerning for acute CVA. [facility] Medical History HTN (hypertension) Macular degeneration Smoker TIA (transient ischemic attack) Home Medications lisinopril 10 mg tablet 10 mg PO DAILY #30 tabs 02/25/19 [Rx Last Taken 07/20/22] aspirin 81 mg tablet,delayed release 81 mg PO DAILY heart health 07/20/22 [History Last Taken 07/19/22] Allergy/AdvReac Type Severity Reaction Status Date / Time No Known Allergies Allergy Verified 10/11/22 13:05 Surgical History History of cataract surgery Social History (Updated 01/13/23 @ 18:57 by Neelam Shipley) household members: other details: Lives alone Smoking Status: Light Smoker (<10/day) Tobacco: How many years used: 20 alcohol intake: never substance use type: does not use ROS Constitutional Constitutional: Denies anorexia, chills, fatigue, fever(s) or malaise Eyes Eyes: Denies change in vision ENT HEENT: Denies dysphagia, headache(s) or sore throat Cardiovascular Cardiovascular: Denies chest pain, dyspnea on exertion, edema, lightheadedness, orthopnea, palpitations, rapid heart rate or syncope Respiratory/Chest Respiratory/Chest: Denies cough, dyspnea, shortness of breath at rest or shortness of breath with exertion Gastrointestinal Gastrointestinal: Reports hematochezia; Denies abdominal pain, nausea or vomiting Genitourinary Genitourinary: Denies burning urination or dysuria Musculoskeletal Musculoskeletal: Denies arthralgias or joint pain Neurologic Neurologic: Reports confusion; Denies dizziness, focal weakness, headache(s), numbness, seizure-like activity, seizures, syncope or tremor(s) Psychiatric Psychiatric: Denies anxiety or depression Endocrine Endocrinology: Reports change in body appearance Vital Signs Vital Signs Vital Signs: 01/13/23 16:42 01/13/23 16:52 Temperature 96.7 F L Temperature Source Temporal Pulse Rate 106 H Respiratory Rate 16 Blood Pressure 143/109 H Blood Pressure Mean 120 Pulse Ox 99 Oxygen Delivery Method Room Air Room Air Weight Weight: 105 lb 4.8 oz Body Mass Index (BMI) 18.1 Physical Exam Const alert, oriented x3, no apparent distress and average body habitus General Appearance: cooperative HEENT normocephalic, head/scalp atraumatic, hearing grossly normal bilaterally and moist oral mucous membranes Mouth: oral and palatal mucosa normal Eyes PERRL, EOMs intact bilaterally and conjunctivae normal Neck no lymphadenopathy, supple and no JVD Resp normal respiratory effort, no retractions, no use of accessory muscles and clear to auscultation bilaterally Cardio regular rate, regular rhythm, S1 normal heart sound, S2 normal heart sound and no murmurs GI normal to inspection, nondistended, normoactive bowel sounds, soft to palpation, non-tender and non-distended Extremity normal to inspection, full ROM and no clubbing, cyanosis or edema Neuro oriented x3 and moves all extremities Neuro Narrative: expressive aphasia resolved at time of review. Sensorium / Orientation: awake and alert Psych affect normal Results Lab / Micro Data Result Diagrams: 01/14/23 05:20 01/14/23 05:20 Assessment & Plan Assessment/Plan (1) Stroke-like symptoms: PLAN: Plan #Expressive aphasia concerning for acute CVA Her last known well was on January 08. Patient lives alone and her children checked on her today and they relate she was confused and having expressive aphasia. CT of the brain shows no acute intracranial pathology. She has had a previous history of a stroke. Admit to PCU under observation Get MRI of the brain tomorrow. Continue aspirin and add on high intensity statin for now N.p.o. until speech therapy evaluates. PT OT consult. Fall precautions. Hold blood pressure medication allow for permissive hypertension #Hypertension: hold BP meds and allow for permissive hypertension DVT prophylaxis: SCDs CODE STATUS:undecided. Patient and her son and daughter in [facility] counseled extensively about different types of CODE STATUS including full code, DNR CCA and DNR CCA. Patient couldnt decide about her code status and wanted more time to think about it. She did understand that in light of her not having made a decision, her default code status would be full code. Total [id number] time 17 minutes. Total time spent on evaluation and management of patient, reviewing chart and specialist notes, discussing plan with patient, her son and daughter in law, discussion with nursing and ancillary staff as well as documentation in EMR: 58 mins Charges/Coding Visit Charges Inpatient E&M: 36845 Init Hosp L2 Procedures Hospitalists Procedures: 48809 Advncd Care Plan 30 Min
[2023-01-13 18:14] LABS: Absolute Neutrophil Count 6.1 X10^3/uL (2.0-7.7); Basophil# 0.06 X10^3/uL; Basophil% 0.7 % (0-1); Eosinophil# 0.05 X10^3/uL; Eosinophils% 0.6 % (0-5); Hemoglobin 14.4 g/dL (12.0-15.0); Lymphocyte % 17.2 % (19-41); Mean Corpuscular Hgb 31.4 pg (27.0-32.0); Mean Platelet Vol. 8.8 fl (6.2-12.0); Monocyte# 0.52 X10^3/uL; Monocyte% 6.4 % (0-10); NRBC Flagged by Analyzer 0 % (0-5); Neutrophil # 6.08 X10^3/uL (2.7-7.7); Neutrophil % 74.7 % (47-70); Platelet Count 326 K/mm3 (150-450); RBC Distribution Width CV 13.9 % (11.6-14.6); RBC Distribution Width SD 50.1 fl (35.1-43.9); Red Blood Count 4.59 M/mm3 (4.2-5.4); White Blood Count 8.1 K/mm3 (4.4-11.0)
--- NOTE | 2023-01-13 18:14 | NURSING ---
PT GETTING FRUSTRATED THAT FAMILY CATCHING PT ON MEMORY ISSUES AND SLIPS OF RECENT. CONFUSION SINCE MON PER REPORT AND NEIGHBOR NOTICED INCREASE WELL WHEN WENT OVER TODAY. PT DEFENSIVE ON KIDS NEEDING TO STEP IN ON CARE MORE OFTEN
[2023-01-13 18:18] LABS: Prothrombin Time (Protime)PT. 12.6 SECONDS (11.7-14.9)
[2023-01-13 18:27] LABS: Anion Gap 5 (5-15); BUN 23 mg/dL (7-18); BUN/Creat Ratio 19.3 RATIO (10-20); Calcium,Total 9.8 mg/dL (8.5-10.1); Chloride 108 mmol/L (98-107); Creatinine, Serum 1.19 mg/dL (0.55-1.02); EST Glomerular Filtration Rate 47 mL/min (>60); Est Glom Filt Rate - Afr Amer 57 mL/min (>60); Estimated Creatinine Clearance 29.85 ml/min; Glucose 100 mg/dL (74-106); Potassium 3.5 mmol/L (3.5-5.1); Sodium Level 144 mmol/L (136-145); Troponin-I HS 23 pg/mL (3.0-54.0)
[2023-01-13 18:45] LABS: Bedside Glucose 96 mg/dL (74-106)
--- NOTE | 2023-01-13 18:50 | ECHOD_ITS ---
Reason For Study: TIA/CVA Procedure This was a 2D Doppler, Color Flow transthoracic echocardiogram. Exam performed portable in patient room. Left Ventricle Normal size and thickness. The left ventricular ejection fraction is 60 %. Normal diastology for age. Right Ventricle Normal right ventricle. Atria The left and right atria are normal. Mitral Valve Mild-Moderate (1-2+) mitral valve insufficiency. Tricuspid Valve Moderate (2+) tricuspid valve insufficiency. Pulmonary artery systolic pressure is 56 mmHg. Aortic Valve Trisinus/trileaflet aortic valve. Mild (1+) aortic valve insufficiency. Pulmonic Valve The pulmonic valve is not well visualized. Mild-Moderate (1-2+) pulmonic valve insufficiency. Great Vessels Normal sized aortic root. Pericardium/Pleural No pericardial effusion. MMode/2D Measurements & Calculations LVIDd: 3.8 cm IVSd: 0.88 cm Ao root diam: 2.4 cm LVIDs: 2.2 cm LVPWd: 0.82 cm RVDd: 3.3 cm FS: 41.8 % LAV(MOD-bp): 26.1 ml LVAd ap4: 13.8 cm2 SV(MOD-sp4): 18.9 ml LAV(MOD-bp) Indexed: 17.6 ml/m2 LVLd ap4: 5.2 cm LAV(MOD-sp2): 26.6 ml EDV(MOD-sp4): 29.9 ml LAV(MOD-sp4): 20.8 ml EDV(sp4-el): 31.2 ml LVAs ap4: 7.7 cm2 LVLs ap4: 4.5 cm ESV(MOD-sp4): 11.0 ml ESV(sp4-el): 11.3 ml EF(MOD-sp4): 63.3 % EF(sp4-el): 63.6 % SV(sp4-el): 19.8 ml LA A4 area: 9.7 cm2 LA dimension(2D): 2.9 cm RA A4 area: 8.7 cm2 Time Measurements MV dec time: 0.17 sec Doppler Measurements & Calculations MV E max williams: 84.4 cm/sec Lat Peak E' Williams: 9.2 cm/sec Med Peak E' Williams: 10.4 cm/sec MV A max williams: 62.6 cm/sec E/E' lat: 9.1 E/E' med: 8.1 MV E/A: 1.3 Ao V2 max: 146.3 cm/sec LV V1 max: 98.5 cm/sec MV dec slope: 483.8 cm/sec2 Ao max P.6 mmHg LV V1 max P.9 mmHg Ao V2 mean: 110.6 cm/sec Ao mean P.2 mmHg Ao V2 VTI: 34.1 cm PA V2 max: 87.6 cm/sec PI end-d williams: 119.4 cm/sec TR max williams: 344.9 cm/sec TR max P.6 mmHg ECHO/Echo Complete Interpretation Summary The left ventricular ejection fraction is 60 %. Mild-Moderate (1-2+) mitral valve insufficiency. Moderate (2+) tricuspid valve insufficiency. Pulmonary artery systolic pressure is 56 mmHg. Mild-Moderate (1-2+) pulmonic valve insufficiency. Ordering Physician: Quin Ruffin Referring Physician: Amisha Torrez Performed By: Alyssa Cool, EDWINCS, RVT
[2023-01-13] MEDS: 0.9% Normal Saline 1,000 ML 125 ML IV (20:13)
[2023-01-14 02:00] VITALS: BP 150/96; PULSE 67; RESP 15; TEMP 36.5; O2SAT 96
[2023-01-14 03:47] VITALS: BMI 17.6
[2023-01-14] MEDS: 0.9% Normal Saline 1,000 ML 125 ML IV (04:09)
[2023-01-14 06:00] VITALS: BP 158/97; PULSE 73; RESP 17; TEMP 36.7; O2SAT 95
[2023-01-14 07:16] LABS: Absolute Lymphocyte Count 2.28 X10^3/uL (0.83-4.51); Absolute Neutrophil Count 2.5 X10^3/uL (2.0-7.7); Basophil# 0.07 X10^3/uL; Basophil% 1.2 % (0-1); Eosinophil# 0.26 X10^3/uL; Eosinophils% 4.6 % (0-5); Hematocrit 41.7 % (37-47); Hemoglobin 13.3 g/dL (12.0-15.0); Lymphocyte # 2.28 X10^3/ul (0.83-4.51); Lymphocyte % 40.4 % (19-41); Mean Corp Hgb Conc 31.9 g/dL (32-36); Mean Corpuscular Hgb 31.8 pg (27.0-32.0); Mean Corpuscular Volume 99.8 fL (81-99); Monocyte# 0.49 X10^3/uL; Monocyte% 8.7 % (0-10); NRBC Flagged by Analyzer 0 % (0-5); Neutrophil # 2.52 X10^3/uL (2.7-7.7); Neutrophil % 44.7 % (47-70); Platelet Count 302 K/mm3 (150-450); RBC Distribution Width CV 14.1 % (11.6-14.6); RBC Distribution Width SD 51.5 fl (35.1-43.9); Red Blood Count 4.18 M/mm3 (4.2-5.4); White Blood Count 5.6 K/mm3 (4.4-11.0)
[2023-01-14] MEDS: Aspirin E.C. 81 MG Tablet PO (07:39)
[2023-01-14 07:42] VITALS: O2SAT 94
[2023-01-14 08:00] LABS: Anion Gap 7 (5-15); BUN 21 mg/dL (7-18); BUN/Creat Ratio 27.5 RATIO (10-20); Calcium,Total 8.5 mg/dL (8.5-10.1); Chloride 110 mmol/L (98-107); Cholesterol 172 mg/dL (200); Creatinine, Serum 0.76 mg/dL (0.55-1.02); EST Glomerular Filtration Rate 78 mL/min (>60); Est Glom Filt Rate - Afr Amer 94 mL/min (>60); Estimated Creatinine Clearance 34.55 ml/min; Glucose 63 mg/dL (74-106); High Density Lipoprotein 56 mg/dL; Potassium 3.3 mmol/L (3.5-5.1); Sodium Level 145 mmol/L (136-145); Triglycerides 180 mg/dL; Very Low Density Lipoprotein 36 mg/dL (5-40)
--- NOTE | 2023-01-14 09:49 | PT ---
B LE exercise handouts provided. Discussion provided and demonstration completed.
--- NOTE | 2023-01-14 09:50 | MRI_ITS ---
EXAM: MR HEAD WITHOUT INTRAVENOUS CONTRAST CLINICAL INDICATION: neuro deficit TECHNIQUE: Multiplanar and multisequence MR images of the brain were obtained without intravenous contrast. This report was created using [employer] report generation technology. COMPARISON: MRI brain without contrast 07/20/2022. CT head without contrast 01/13/2023. FINDINGS: BRAIN AND EXTRA-AXIAL SPACES: Extensive confluent T2 hyperintensities in the white matter of both cerebral hemispheres are chronic white matter ischemic changes. No intra- or extra-axial hemorrhage. No intracranial mass or mass effect. Posterior fossa structures are unremarkable. Ventricles are appropriate for age. No hydrocephalus. Basal cisterns are patent. No diffusion restriction to suspect acute or subacute ischemic infarct. SELLA: Unremarkable. Normal sella turcica, pituitary gland, infundibular stalk, optic chiasm and hypothalamus. AUDITORY SYSTEM: Unremarkable. The internal auditory canals are patent. BONES/JOINTS: Unremarkable. No discrete lytic or blastic abnormalities. SINUSES: Unremarkable as visualized. Clear. MASTOID AIR CELLS: Unremarkable as visualized. Clear. ORBITS: Unremarkable as visualized. Both globes, extraocular muscles, optic nerves and retrobulbar fat appear unremarkable. VASCULATURE: Unremarkable as visualized. Normal flow voids in the major intracranial circulation. MRI/Brain without Contrast IMPRESSION: 1. No MRI evidence of acute or subacute ischemic infarct or acute intracranial abnormality. 2. Multiple confluent and chronic white matter ischemic changes in both cerebral hemispheres. 3. No significant interval change when compared to 07/20/2022. Electronically Signed: Ike Wilson MD at 10:58 EST ,
[2023-01-14 09:55] VITALS: BP 162/103; PULSE 68; RESP 18; TEMP 36.6; O2SAT 97
--- NOTE | 2023-01-14 12:15 | CASEMGMT ---
Social Work PHQ-9 not completed as pt did not have a stroke. KAZ Villegas
--- NOTE | 2023-01-14 12:53 | CT_ITS ---
STUDY: CTA HEAD AND NECK WITH CONTRAST REASON FOR EXAM: Female, 77 years old. TIA RADIATION DOSAGE (If Supplied By Facility): CTDIvol = ( 23.13 ) mGy, DLP = ( 1184.44 ) mGycm TECHNIQUE: CT angiography was performed with a multi-detector CT scanner. Data acquisition was obtained from the skull base through the vertex following intravenous administration of 100 mL of Isovue-370. MIP images were reconstructed from the axial data set. Post-processing of the angiographic images was performed, with multiplanar reformation and 3D reconstruction. Individualized dose optimization techniques were used for this CT. COMPARISON: MRI of the brain without contrast 07/20/2022 and 01/14/2023. MRA of the head without contrast 07/20/2022. MRA of the neck with and without contrast 07/20/2022. FINDINGS: Normal bilateral petrous carotid arteries. Normal right cavernous carotid artery with a normal supraclinoid bifurcation. Normal left cavernous carotid artery with a normal supraclinoid bifurcation. Normal right A1 segment of the anterior cerebral artery. Normal left A1 segment of the anterior cerebral artery. Normal intact anterior communicating artery (ACOM). Normal bilateral A2 segments of the anterior cerebral arteries. Normal right M1 and M2 segments of the middle cerebral arteries, with a normal M1 bifurcation. Normal left M1 and M2 segments of the middle cerebral arteries, with a normal M1 bifurcation. Normal right posterior communicating artery (PCOM). Normal left posterior communicating artery (PCOM). Normal bilateral codominant vertebral arteries. Normal basilar artery with a normal basilar bifurcation. The visualized bilateral superior cerebellar (SCA) arteries are normal. Normal bilateral P1, P2 and visualized P3 segments of the posterior cerebral arteries. There is no demonstrated aneurysm of the [place]. Multiple hypodensities in the white matter of both cerebral hemispheres are confluent chronic white matter ischemic changes. AORTIC ARCH: Normal visualized aortic arch. Normal origins of the brachiocephalic, left common carotid, and left subclavian arteries. RIGHT CAROTID ARTERIES: Normal right common carotid artery (CCA). Normal right carotid bulb. Normal origin of the right internal carotid (ICA) artery without a hemodynamically significant stenosis. Normal visualized cervical portion of the right internal carotid artery. Less than 50% stenosis of the origin of the right external carotid artery (ECA). LEFT CAROTID ARTERIES: Normal left common carotid artery (CCA). Normal left carotid bulb. Normal origin of the left internal carotid (ICA) artery without a hemodynamically significant stenosis. Normal visualized cervical portion of the left internal carotid artery. Normal origin of the left external carotid artery (ECA). VERTEBRAL ARTERIES: Normal bilateral vertebral arteries. CT/CTA Head AND Neck W/ Contrast IMPRESSION: 1. Normal CTA head. 2. Less than 50% stenosis of the right external carotid artery origin due to noncalcified plaques and calcified plaques. 3. Widely patent bilateral common carotid arteries and bilateral cervical internal carotid arteries. 4. Widely patent codominant vertebral arteries in all 4 segments. 5. Normal aortic arch and origins of the great vessels. Electronically Signed: Ike Wilson MD at 14:05 EST ,
[2023-01-14] MEDS: Potassium Chloride Oral Tablet 20 MEQ 40 MEQ PO (13:10)
[2023-01-14] MEDS: Lisinopril 10 MG Tablet PO (13:10)
--- NOTE | 2023-01-14 14:04 | PCM.DC.SUM ---
Providers Date of Admission: 01/13/23 Date of Discharge: 01/14/23 Primary Care Physician: Dr. Amisha Torrez MD Reason For Visit: STROKE LIKE SYMPTOMS Diagnosis Discharge Diagnosis (1) Stroke-like symptoms: Status: Resolved Code(s): R29.90 - Unspecified symptoms and signs involving the nervous system Plan #Expressive aphasia concerning for acute CVA Her last known well was on January 08. Patient lives alone and her children checked on her today and they relate she was confused and having expressive aphasia. CT of the brain shows no acute intracranial pathology. She has had a previous history of a stroke. Admit to PCU under observation Get MRI of the brain tomorrow. Continue aspirin and add on high intensity statin for now N.p.o. until speech therapy evaluates. PT OT consult. Fall precautions. Hold blood pressure medication allow for permissive hypertension #Hypertension: hold BP meds and allow for permissive hypertension DVT prophylaxis: SCDs CODE STATUS: Total time spent on evaluation and management of patient, reviewing chart and specialist notes, discussing plan with patient and his , discussion with nursing and ancillary staff as well as documentation: Medications at Discharge Home Medications lisinopril 10 mg tablet 10 mg PO DAILY #30 tabs 02/25/19 aspirin 81 mg tablet,delayed release 81 mg PO DAILY heart [facility] 07/20/22 Hospital Course Operations None Procedures 2-D Echocardiogram Summary of Care Provided Minutes Spent on Discharge: 50 Hospital Course: Patient is a 77-year-old female with a past medical history was admitted via the ED on 01/13/2023 with a complaint of difficulty finding words. She does have a past medical history of stroke with occasional expressive aphasia. Her last known well was 01/09/2023 when according to her children they spoke to her and she was fine at that point. However patient says she spoke to her neighbor yesterday who noted that patient was confused. Family went to check on her on the day of admission and she was noted to be confused and had difficulty finding words so she was brought into the ED. She denied any weakness in her extremities and denied any dizziness or lightheadedness, numbness or tingling. His symptoms had essentially resolved by the time she came into the ED. She denied any focal weakness or any other symptoms. Her NIH was 1 at time of evaluation in the ED. Vitals in the ED were temp of 96.7F, BP of 143/109, RR of 16 and she was saturating at 99% on room air. CXR showed no acute cardiopulmonary process.? CT of the brain showed moderate atrophy and advanced periventricular white matter ischemic changes with multiple old bilateral lacunar infarcts with no acute bleed.? She has been admitted to be managed for expressive aphasia concerning for acute CVA. She had MRI of the brain which showed no evidence of acute stroke. Her aspirin was continued. Her lisinopril was initially held to allow for permissive hypertension in the event of a stroke. However this was subsequently resumed. Patient did well with therapy and came back to her baseline. She had a CTA of the head and neck which showed less than 50% stenosis of the right external carotid artery due to noncalcified plaques and calcified plaques as well as widely patent bilateral common carotid arteries and bilateral cervical internal carotid arteries. She remained stable and was discharged home on 01/14/2023. She was referred to neurology on outpatient basis as well. She is follow-up with her primary care doctor within 1 to 2 weeks. Patient seen and examined prior to discharge. She felt well and had no active complaints. Review of systems otherwise negative. Labs and vitals reviewed. Home medication reviewed and reconciled. Physical Exam Const alert, oriented x3, no apparent distress and average body habitus General Appearance: cooperative, comfortable and well kempt Orientation / Consciousness: awake Exam Limitations: no limitations HEENT normocephalic, head/scalp atraumatic, hearing grossly normal bilaterally and moist oral mucous membranes Mouth: oral and palatal mucosa normal Eyes PERRL, EOMs intact bilaterally and conjunctivae normal Neck no lymphadenopathy, supple and no JVD Resp normal respiratory effort, no retractions, no use of accessory muscles and clear to auscultation bilaterally Cardio regular rate, regular rhythm, S1 normal heart sound, S2 normal heart sound and no murmurs GI normal to inspection, nondistended, normoactive bowel sounds, soft to palpation, non-tender and non-distended Extremity normal to inspection, full ROM and no clubbing, cyanosis or edema Neuro oriented x3 and moves all extremities Neuro Narrative: expressive aphasia Sensorium / Orientation: awake and alert Psych affect normal Weight / BMI Weight Weight: 102 lb 6.4 oz Body Mass Index (BMI) 17.6 ABG / Lab / Microbiology Data Result Diagrams: 01/14/23 05:20 01/14/23 05:20 Laboratory: Laboratory Results - last 24 hr 01/13/23 18:00: WBC 8.1, RBC 4.59, Hgb 14.4, Hct 45.0, MCV 98.0, MCH 31.4, MCHC 32.0, RDW Std Deviation 50.1 H, RDW Coeff of [place] 13.9, Plt Count 326, MPV 8.8, Immature Gran % (Auto) 0.400, Neut % (Auto) 74.7 H, Lymph % (Auto) 17.2 L, [place] % (Auto) 6.4, Eos % (Auto) 0.6, Baso % (Auto) 0.7, Absolute Neuts (auto) 6.1, Absolute Lymphs (auto) 1.40, Nucleated RBC % 0 01/13/23 18:00: PT 12.6, INR 1.0, APTT 24.0 L 01/13/23 18:00: Sodium 144, Potassium 3.5, Chloride 108 H, Carbon Dioxide 31.0, Anion Gap 5, BUN 23 H, Creatinine 1.19 H, Estim Creat Clear Calc 29.85, Est GFR (MDRD) Af Amer 57 L, Est GFR (MDRD) Non-Af 47 L, BUN/Creatinine Ratio 19.3, Glucose 100, Calcium 9.8, Troponin I High Sens 23 01/13/23 18:24: POC Glucose 96 01/14/23 05:20: WBC 5.6, RBC 4.18 L, Hgb 13.3, Hct 41.7, MCV 99.8 H, MCH 31.8, MCHC 31.9 L, RDW Std Deviation 51.5 H, RDW Coeff of [place] 14.1, Plt Count 302, MPV 9.0, Immature Gran % (Auto) 0.400, Neut % (Auto) 44.7 L, Lymph % (Auto) 40.4, [place] % (Auto) 8.7, Eos % (Auto) 4.6, Baso % (Auto) 1.2 H, Absolute Neuts (auto) 2.5, Absolute Lymphs (auto) 2.28, Nucleated RBC % 0 01/14/23 05:20: Sodium 145, Potassium 3.3 L, Chloride 110 H, Carbon Dioxide 28.0, Anion Gap 7, BUN 21 H, Creatinine 0.76, Estim Creat Clear Calc 34.55, Est GFR (MDRD) Af Amer 94, Est GFR (MDRD) Non-Af 78, BUN/Creatinine Ratio 27.5 H, Glucose 63 L, Calcium 8.5, Triglycerides 180, Cholesterol 172, LDL Cholesterol 80, VLDL Cholesterol 36, HDL Cholesterol 56 Radiography Diagnostic Testing: Radiology Impression Brain CT 01/13/23 16:52 IMPRESSION: Moderate atrophy and advanced periventricular white matter ischemic changes with multiple old bilateral lacunar infarcts.. No acute bleed. If concern for acute infarct MRI recommended N.B. : The above Results were Read Back by Chris Torres MD to Constantino Munguia MD, and understanding confirmed on 01/13/2023 17:43:39 (ET). Electronically Signed: Chris Torres MD at 17:54 EST , ADDENDUM: 01/13/23 1801 IMPRESSION: Moderate atrophy and advanced periventricular white matter ischemic changes with multiple old bilateral lacunar infarcts.. No acute bleed. If concern for acute infarct MRI recommended N.B. : The above Results were Read Back by Chris Torres MD to Constantino Munguia MD, and understanding confirmed on 01/13/2023 17:43:39 (ET). Electronically Signed: Chris Torres MD at 17:54 EST , Chest X-Ray 01/13/23 17:24 IMPRESSION: No acute cardiopulmonary pathology. Electronically Signed: Chris Torres MD at 17:56 EST , Echocardiogram 01/13/23 18:50 Interpretation Summary The left ventricular ejection fraction is 60 %. Mild-Moderate (1-2+) mitral valve insufficiency. Moderate (2+) tricuspid valve insufficiency. Pulmonary artery systolic pressure is 56 mmHg. Mild-Moderate (1-2+) pulmonic valve insufficiency. Ordering Physician: Quin Ruffin Referring Physician: Amisha Torrez Performed By: Alyssa Cool, RDCS, RVT Brain MRI 01/14/23 09:50 IMPRESSION: 1. No MRI evidence of acute or subacute ischemic infarct or acute intracranial abnormality. 2. Multiple confluent and chronic white matter ischemic changes in both cerebral hemispheres. 3. No significant interval change when compared to 07/20/2022. Electronically Signed: Ike Wilson MD at 10:58 EST , D/C Instructions Discharge Diet: Low fat / Low cholesterol Discharge Activity: Return to Normal Activity Weight Bearing Status: Weight bearing as tolerated Call your doctor if you observe: Fever of 101 or Higher, Shortness of breath, Dizziness, Swelling in the ankles and Chest pain Meaningful Use Info Meaningful Use Diagnoses (Choose all that apply): None applicable Discharge Plan Admission Admit Date/Time: 01/13/23 18:00 Primary Reason for Your Visit: TIA Attending Provider: Quin Ruffin Primary Care Provider: Amisha Torrez Instructions Patient Instructions: TIA Dc Discharge Orders/Prescriptions Prescriptions: Continued lisinopril 10 MG tablet 10 mg PO DAILY Qty: 30 0RF aspirin 81 mg Tablet,Delayed Release (Dr/Ec) 81 mg PO DAILY Referrals / Follow Up: Amisha Torrez MD [Primary Care Provider] - Within 2 Weeks Medardo Garza MD [Non-Staff -Ordering Privileges] - Within 2 Weeks Disposition Disposition (needs filled in before D/C Order can be placed): Home, Self Care Charges/Coding Visit Charges Inpatient E&M: 44090 Disch Hosp >30min
[2023-01-14 14:16] VITALS: BP 125/96; PULSE 68; RESP 18; TEMP 36.7; O2SAT 96
== END 2023-01-14 14:04 | disposition home or self-care (01) ==
LOC: ED 17:48 → PCU 18:21
PROVIDERS: Admitting Provider Student in an Organized Health Care Education/Training Program; Emergency Provider Emergency Medicine; PCP Family Medicine; Visit Provider Student in an Organized Health Care Education/Training Program
DX: R41.0 Disorientation, unspecified (principal); F17.210 Nicotine dependence, cigarettes, uncomplicated; Z79.82 Long term (current) use of aspirin; I10 Essential (primary) hypertension; I69.320 Aphasia following cerebral infarction; Z79.899 Other long term (current) drug therapy; I08.3 Combined rheumatic disorders of mitral, aortic and tricuspid valves; R94.31 Abnormal electrocardiogram [ECG] [EKG]; R29.702 NIHSS score 2
CPT/HCPCS: 70450; 70496; 70498; 70551; 71045; 80048; 80061; 82962; 84484; 85025; 85610; 85730; 92610; 93005; 93306; 94762; 96360; 96361; 97161; 97165; 99221; 99284; J7030; Q9967; G0378

== ENCOUNTER 2023-03-11 17:44 | Inpatient (IN) | payer MEDICARE, OTHER, SELFPAY ==
[2023-03-11 17:45] VITALS: BP 117/88; PULSE 81; RESP 18; TEMP 36.7; O2SAT 97; BMI 19.1
--- NOTE | 2023-03-11 17:52 | EKG12_ITS ---
Test Reason : STROKE Blood Pressure : / mmHG Vent. Rate : 073 BPM Atrial Rate : 073 BPM P-R Int : 146 ms QRS Dur : 078 ms QT Int : 392 ms P-R-T Axes : 072 062 062 degrees QTc Int : 431 ms Normal sinus rhythm Normal ECG Confirmed by LEYDI BETANCOURT, DANIELITO ([id number]), associate editor LASHYA VALDES ([id number]) on 03/13/2023 2:47:01 PM Referred By: PL Confirmed By:JESSICA HOLLEY MD
--- NOTE | 2023-03-11 17:52 | CT_ITS ---
We are attempting to reach an attending provider to discuss findings. An addendum with communication details will be sent when the communication is complete. INDICATION: Neuro deficit, acute, stroke suspected EXAMINATION: CT BRAIN - CT Head Stroke Protocol W/O Contrast Injection TECHNIQUE: Multiple axial images were obtained of the head without intravenous contrast. A radiation dose optimization technique was used for this scan. IV Contrast dosage and agent: None. RADIATION DOSAGE (If Supplied By Facility): CTDIvol = ( ) mGy, DLP = ( ) mGycm COMPARISON: 01/14/2023 FINDINGS: BRAIN PARENCHYMA: No intra- or extra-axial hemorrhage. No evidence of acute infarct. No intracranial mass or mass effect. There is preservation of the murillo/white matter interface. Posterior fossa structures are unremarkable. Central parenchymal volume loss. White matter changes that are nonspecific but most commonly associated with chronic small vessel ischemic disease. CSF SPACES: No hydrocephalus. Basal cisterns are patent. CALVARIUM, SKULL BASE, PARANASAL SINUSES AND MASTOID AIR CELLS: Clear. No discrete lytic or blastic abnormalities. ORBITS: Both globes, extraocular muscles, optic nerves and retrobulbar fat appear unremarkable. ASPECTS Score for Acute Strokes: 10 CT/STROKE Brain/Head without Cont IMPRESSION: 1. No acute intracranial hemorrhage or mass effect. Electronically Signed: Mickey Jose (Brooks), at 18:08 EDT ,
--- NOTE | 2023-03-11 17:52 | CT_ITS ---
We are attempting to reach an attending provider to discuss findings. An addendum with communication details will be sent when the communication is complete. EXAM: CT ANGIOGRAPHY HEAD AND NECK WITH INTRAVENOUS CONTRAST CLINICAL INDICATION: Neuro deficit, acute, stroke suspected TECHNIQUE: [place]/head and neck CT angiography protocol performed with intravenous contrast. This CT exam was performed using one or more of the following dose reduction techniques: automated exposure control, adjustment of the mA and/or kV according to patient size, and/or use of iterative reconstruction technique. MIP reconstructed images were created and reviewed. CONTRAST: IV 75mL [id number] RADIATION DOSE: CTDIvol = 14.93 mGy, DLP = 479.01 mGy-cm COMPARISON: No relevant prior studies available. FINDINGS: HEAD: RIGHT ANTERIOR CEREBRAL ARTERY: Unremarkable. No significant stenosis at the visualized segments. Anterior communicating artery is present. No aneurysm. RIGHT MIDDLE CEREBRAL ARTERY: Unremarkable. No significant stenosis at the visualized segments. No aneurysm. RIGHT POSTERIOR CEREBRAL ARTERY: Unremarkable. No occlusion or significant stenosis. No aneurysm. RIGHT INTRACRANIAL INTERNAL CAROTID ARTERY: Unremarkable. No significant stenosis. No dissection or occlusion. RIGHT INTRACRANIAL VERTEBRAL ARTERY: Unremarkable. No significant stenosis. No dissection or occlusion. LEFT ANTERIOR CEREBRAL ARTERY: Unremarkable. No significant stenosis at the visualized segments. No aneurysm. LEFT MIDDLE CEREBRAL ARTERY: Unremarkable. No significant stenosis at the visualized segments. No aneurysm. LEFT POSTERIOR CEREBRAL ARTERY: Unremarkable. No occlusion or significant stenosis. No aneurysm. LEFT INTRACRANIAL INTERNAL CAROTID ARTERY: Unremarkable. No significant stenosis. No dissection or occlusion. LEFT INTRACRANIAL VERTEBRAL ARTERY: Unremarkable. No significant stenosis. No dissection or occlusion. BASILAR ARTERY: Unremarkable. No significant stenosis. No aneurysm. OTHER VASCULATURE: No vascular malformation. NECK: RIGHT COMMON CAROTID ARTERY: Unremarkable. No significant stenosis. No dissection or occlusion. RIGHT EXTRACRANIAL INTERNAL CAROTID ARTERY: Unremarkable. No significant stenosis. No dissection or occlusion. RIGHT EXTERNAL CAROTID ARTERY: Unremarkable. No occlusion. RIGHT EXTRACRANIAL VERTEBRAL ARTERY: Unremarkable. No significant stenosis. No dissection or occlusion. LEFT COMMON CAROTID ARTERY: Unremarkable. No significant stenosis. No dissection or occlusion. LEFT EXTRACRANIAL INTERNAL CAROTID ARTERY: Unremarkable. No significant stenosis. No dissection or occlusion. LEFT EXTERNAL CAROTID ARTERY: Unremarkable. No occlusion. LEFT EXTRACRANIAL VERTEBRAL ARTERY: Unremarkable. No significant stenosis. No dissection or occlusion. BRACHIOCEPHALIC AND SUBCLAVIAN ARTERIES: Unremarkable as visualized. No occlusion or significant stenosis. LUNG APICES: Unremarkable as visualized. HEAD and NECK: BONES/JOINTS: Unremarkable. No discrete lytic or blastic abnormalities. SOFT TISSUES: Unremarkable. CAROTID STENOSIS REFERENCE USING NASCET CRITERIA: % ICA stenosis = (1 - narrowest ICA diameter/diameter of distal cervical ICA) x 100. Mild - <50% stenosis. Moderate - 50-69% stenosis. Severe - 70-94% stenosis. Near occlusion - 95-99% stenosis. Occluded - 100% stenosis. CT/STROKE CTA Head AND Neck W/Con IMPRESSION: Negative CTA carotid and CTA brain. Electronically Signed: Mickey Jose (Brooks), at 18:19 EDT ,
--- NOTE | 2023-03-11 17:53 | EDS_ITS ---
HPI History of Present Illness Chief Complaint: Neuro S/Sx Informant: patient and family Narrative Narrative: History is per patient but more per her son who is with her when the events happened and is present now. This patient presents with strokelike symptoms. She denied prior stroke but her sons and deyifowy-[id number] states that she has had mini strokes and TIAs mostly with expressive aphasia. She has never had unilateral weakness. She has been seen evaluated and cleared for activity. She only blood thinner is a baby aspirin once a day. Patient was with the family at a game today. On the way home at about 330 she started to act differently. She was trying to get the lid off her water bottle and there is no lid. She was using a phone upside down and backwards and could not understand why it did not work. She was having a little trouble speaking. It sounds like her words were correct but they were slurred. It sounds like she had more dysarthria than actual expressive aphasia but there may have been a component of both. She seemed a little bit unsteady although that has improved. These were out of character for her. [facility] Medical History HTN (hypertension) Macular degeneration Smoker TIA (transient ischemic attack) Home Medications lisinopril 10 mg tablet 10 mg PO DAILY #30 tabs 02/25/19 [Rx Last Taken 07/20/22] aspirin 81 mg tablet,delayed release 81 mg PO DAILY heart health 07/20/22 [History Last Taken 07/19/22] alendronate 35 mg tablet 35 mg PO DAILY 03/11/23 [History Last Taken Unknown] atorvastatin 80 mg tablet 80 mg PO QHS 03/11/23 [History Last Taken Unknown] mirtazapine 30 mg tablet 30 mg PO QHS 03/11/23 [History Last Taken Unknown] Allergy/AdvReac Type Severity Reaction Status Date / Time No Known Allergies Allergy Verified 03/11/23 20:38 Family History (Updated 03/11/23 @ 20:[address] Hai Naranjo DO) Other CVA (cerebral vascular accident) Surgical History History of cataract surgery Social History household members: other details: Lives alone Smoking Status: Light Smoker (<10/day) Tobacco: How many years used: 20 alcohol intake: never substance use type: does not use ROS ROS ED Constitutional Constitutional ED: Denies chills or fever(s) Eyes Eyes: Denies change in vision Cardiovascular Cardiovascular: Denies chest pain or palpitations Respiratory/Chest Respiratory/Chest: Denies cough or dyspnea Gastrointestinal Gastrointestinal: Denies nausea or vomiting Musculoskeletal Musculoskeletal: Denies myalgias Integumentary Denies rash Neurologic Neurologic: Reports other Details: See history of present illness Hematologic/Lymphatic Hematologic/Lymphatic: Denies easy bleeding or easy bruising Allergic/Immunologic Allergic/Immunologic ED: Denies urticaria EXAM Physical Exam Narrative Exam Narrative: Patient is awake alert. She is sitting in bed. She seems to have normal coordination of hands and legs. She is awake alert reasonably cooperative. HEENT shows no obvious weakness. No trauma. Eyes have normal range of motion. Normal visual field by confrontation. Neck shows no meningismus. I do not hear carotid bruit. Lungs are clear bilaterally and she is not hypoxic. Heart is regular. Appears to be sinus. Abdomen soft nontender Extremities show no edema or trauma. Neurologically she is awake and alert. She is oriented fully. But she is a little slow to answer questions at times. I sometimes have to ask her to do something twice before she will do it. She seems to be very distracted and have a little trouble at times interpreting what I am saying. This makes me wonder if there is a small component of receptive aphasia. Her speech is occasionally pausing and slurred but just mildly. But she does not say the wrong words. She has just mild dysarthria. She has sensation intact throughout but when I do simultaneous sensation on both sides she seems to not feel the left as much. But her coordination and strength is still intact there. See NIH stroke scale. Const Vital Signs: 03/11/23 17:45 03/11/23 17:52 03/11/23 18:21 Temperature 98.1 F Temperature Source Temporal Pulse Rate 81 73 Respiratory Rate 18 16 Blood Pressure 117/88 H 131/78 H Blood Pressure Mean 97 95 Pulse Ox 97 97 Oxygen Delivery Method Room Air Room Air Room Air 03/11/23 19:05 03/11/23 19:30 03/11/23 20:00 Temperature 97.9 F Temperature Source Temporal Pulse Rate 79 68 65 Respiratory Rate 16 18 18 Blood Pressure 112/89 H 127/67 H 114/85 H Blood Pressure Mean 96 87 94 Pulse Ox 98 96 97 Oxygen Delivery Method Room Air Room Air NIHSS NIHSS Initial: 1a Level of Consciousness: 0 1b LOC Questions (Score 2 if aphasic/stupor): 0 1c LOC Commands (Only score 1st attempt): 0 2 Best Gaze (If aphasic, use reflexive mvmts.): 0 3 Visual: 0 4 Facial Palsy: 0 5 Motor Arm Right (UN = amputation/fusion): 0 5 Motor Arm Left: 0 6 Motor Leg Right: 0 6 Motor Leg Left: 0 7 Limb ataxia (Only + if out of proportion): 0 8 Sensory (Aphasia/stupor=0 or 1, coma=2): 0 9 Best Language: 1 10 Dysarthria (mute, coma=2, intubated=UN): 1 11 Extinction and Inattention (only scored if +): 1 Total Score: 3 MDM MDM MDM Narrative Medical decision making narrative: Independent interpretation the CT shows no acute bleed. Final reading is no acute. Final reading the CTA is negative for any acute process. Patient CBC is normal other than minimally elevated hemoglobin. Coagulation studies are negative Electrolytes are normal other than minimal elevation of the creatinine to 1.12. Calcium is only slightly high at 10.6. I do not think this is likely the cause of her symptoms. Patient's recheck. Her symptoms are now resolved. I note that she actually was evaluated for this in January of this year in July of last year. However, she had real symptoms today. They are now improved. She does have risks. One of the questions is should she be on dual platelet therapy. I discussed case with hospitalist. She will be admitted for further evaluation. Lab Data Labs: Laboratory Results - last 24 hr 03/11/23 03/11/23 03/11/23 17:50 17:50 17:50 WBC 7.0 RBC 4.85 Hgb 15.6 H Hct 47.5 H MCV 97.9 MCH 32.2 H MCHC 32.8 RDW Std Deviation 47.3 H RDW Coeff of [place] 13.2 Plt Count 267 MPV 8.9 Immature Gran % (Auto) 0.100 Neut % (Auto) 61.7 Lymph % (Auto) 27.8 Cooper % (Auto) 8.1 Eos % (Auto) 1.6 Baso % (Auto) 0.7 Absolute Neuts (auto) 4.3 Absolute Lymphs (auto) 1.95 Nucleated RBC % 0 PT 12.0 INR 0.9 APTT 26.6 Sodium 141 Potassium 3.9 Chloride 106 Carbon Dioxide 27.0 Anion Gap 8 BUN 21 H Creatinine 1.12 H Estim Creat Clear Calc 31.48 Est GFR (MDRD) Af Amer 61 Est GFR (MDRD) Non-Af 50 L BUN/Creatinine Ratio 18.8 Glucose 116 H Calcium 10.6 H Troponin I High Sens 32 POC Glucose 03/11/23 18:04 WBC RBC Hgb Hct MCV MCH MCHC RDW Std Deviation RDW Coeff of [place] Plt Count MPV Immature Gran % (Auto) Neut % (Auto) Lymph % (Auto) Cooper % (Auto) Eos % (Auto) Baso % (Auto) Absolute Neuts (auto) Absolute Lymphs (auto) Nucleated RBC % PT INR APTT Sodium Potassium Chloride Carbon Dioxide Anion Gap BUN Creatinine Estim Creat Clear Calc Est GFR (MDRD) Af Amer Est GFR (MDRD) Non-Af BUN/Creatinine Ratio Glucose Calcium Troponin I High Sens POC Glucose 110 H Radiography Diagnostic Testing: Clinical Impression(s) from Imaging Studies Brain CT 03/11/23 17:52 IMPRESSION: 1. No acute intracranial hemorrhage or mass effect. Electronically Signed: Mickey Jose (Brooks), at 18:08 EDT , ADDENDUM: 03/11/23 1816 IMPRESSION: 1. No acute intracranial hemorrhage or mass effect. N.B. : The above Results were Read Back by Mickey Jose (Brooks) to Rafat Azevedo MD, and understanding confirmed on 03/11/2023 18:09:49 (ET). Electronically Signed: Mickey Jose (Brooks), at 18:08 EDT , Head/Neck CTA 03/11/23 17:52 IMPRESSION: Negative CTA carotid and CTA brain. Electronically Signed: Mickey Jose (Brooks), at 18:19 EDT , ADDENDUM: 03/11/23 1833 IMPRESSION: Negative CTA carotid and CTA brain. N.B. : The above Results were Read Back by Mickey Jose (Brooks) to Rafat Azevedo MD, and understanding confirmed on 03/11/2023 18:26:49 (ET). Electronically Signed: Mickey Jose (Brooks), at 18:19 EDT , Chest X-Ray 03/11/23 18:30 IMPRESSION: Nonacute portable x-ray examination of the chest. Electronically Signed: Mickey Jose (Brooks), at 18:57 EDT , Management Discussion w/another healthcare provider: Hospitalist Discharge Plan Dx/Rx/DC Orders Clinical Impression: TIA on medication, Transient confusion, History of high blood pressure Disposition Disposition: Acute Care Hospital [facility] Discharge Date/Time: 03/11/23 20:19
[2023-03-11 17:57] LABS: Absolute Lymphocyte Count 1.95 X10^3/uL (0.83-4.51); Absolute Neutrophil Count 4.3 X10^3/uL (2.0-7.7); Basophil# 0.05 X10^3/uL; Basophil% 0.7 % (0-1); Eosinophil# 0.11 X10^3/uL; Eosinophils% 1.6 % (0-5); Hematocrit 47.5 % (37-47); Hemoglobin 15.6 g/dL (12.0-15.0); Lymphocyte # 1.95 X10^3/ul (0.83-4.51); Lymphocyte % 27.8 % (19-41); Mean Corp Hgb Conc 32.8 g/dL (32-36); Mean Corpuscular Hgb 32.2 pg (27.0-32.0); Mean Corpuscular Volume 97.9 fL (81-99); Mean Platelet Vol. 8.9 fl (6.2-12.0); Monocyte# 0.57 X10^3/uL; Monocyte% 8.1 % (0-10); NRBC Flagged by Analyzer 0 % (0-5); Neutrophil # 4.33 X10^3/uL (2.7-7.7); Neutrophil % 61.7 % (47-70); Platelet Count 267 K/mm3 (150-450); RBC Distribution Width CV 13.2 % (11.6-14.6); RBC Distribution Width SD 47.3 fl (35.1-43.9); Red Blood Count 4.85 M/mm3 (4.2-5.4)
[2023-03-11 18:05] LABS: International Normalized Ratio 0.9
[2023-03-11 18:06] LABS: Partial Thromboplast Time 26.6 Seconds (24.1-36.2)
[2023-03-11 18:07] VITALS: BMI 19.1
[2023-03-11 18:14] LABS: Anion Gap 8 (5-15); BUN 21 mg/dL (7-18); BUN/Creat Ratio 18.8 RATIO (10-20); Calcium,Total 10.6 mg/dL (8.5-10.1); Chloride 106 mmol/L (98-107); Creatinine, Serum 1.12 mg/dL (0.55-1.02); EST Glomerular Filtration Rate 50 mL/min (>60); Est Glom Filt Rate - Afr Amer 61 mL/min (>60); Estimated Creatinine Clearance 31.48 ml/min; Glucose 116 mg/dL (74-106); Potassium 3.9 mmol/L (3.5-5.1); Sodium Level 141 mmol/L (136-145); Troponin-I HS 32 pg/mL (3.0-54.0)
[2023-03-11 18:21] VITALS: BP 131/78; PULSE 73; RESP 16; O2SAT 97
[2023-03-11 18:25] LABS: Bedside Glucose 110 mg/dL (74-106)
--- NOTE | 2023-03-11 18:30 | RAD_ITS ---
STUDY: X-RAY CHEST REASON FOR EXAM: Female, 77 years old. Neuro deficit, acute, stroke suspected TECHNIQUE: suddent onset of confusion- using the phone upside down but then unsure why she couldn''t hear the other end. Pt with slurred speech unable to tell time. COMPARISON: 01/13/2023 FINDINGS: EKG leads project over the chest. The lungs are clear and expanded. There is no demonstrated pleural abnormality. Normal size heart. Normal mediastinum and hermilo. Normal visualized pulmonary arteries. There is atherosclerotic tortuosity of the aortic arch and descending thoracic aorta. Scoliosis of the thoracolumbar spine. Normal visualized ribs, clavicles, and shoulders. There is no demonstrated abnormality of the visualized soft tissue structures of the upper abdomen. RAD/Chest 1 View IMPRESSION: Nonacute portable x-ray examination of the chest. Electronically Signed: Mcikey Jose (Brooks), at 18:57 EDT ,
[2023-03-11 19:05] VITALS: BP 112/89; PULSE 79; RESP 16; O2SAT 98
[2023-03-11 19:30] VITALS: BP 127/67; PULSE 68; RESP 18; O2SAT 96
[2023-03-11 20:00] VITALS: BP 114/85; PULSE 65; RESP 18; TEMP 36.6; O2SAT 97
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
[2023-03-11 20:26] VITALS: BMI 17.4
[2023-03-11 20:45] VITALS: BP 128/88; PULSE 65; RESP 18; TEMP 36.9; O2SAT 100
[2023-03-11 20:46] LABS: Troponin-I HS 29 pg/mL (3.0-54.0)
[2023-03-11] MEDS: Atorvastatin Calcium 80 MG Tablet PO (20:54)
[2023-03-11] MEDS: Clopidogrel Bisulfate 75 MG Tablet PO (20:54)
[2023-03-11] MEDS: Mirtazapine 30 MG Tablet PO (20:55)
[2023-03-11 23:29] LABS: Bacteria 0 SEEN /hpf (None Seen); Mucous, Urine 0 SEEN /hpf (<or=2+); Squamous Epithelial Cells - UA 0 SEEN /hpf (5-10)
[2023-03-11 23:32] LABS: Color, Urine Yellow (Yellow); Glucose, Dipstick Normal (Normal); Ketone-Dipstick Negative (Negative); Leukocyte Esterase-Dipstick 25 /ul (Negative); Nitrite-Dipstick Negative (Negative); Occult Blood-Urine 10 /ul (Negative); Protein-Dipstick 15 mg/dl (Negative); Specific Gravity, Urine 1.015 (1.002-1.030); Urine Bilirubin Dipstick Negative (Negative); Urine Clarity Clear (Clear); Urine Urobilinogen Normal (Normal); Urine pH 6.5 (5.0 - 8.0)
[2023-03-11 23:44] LABS: Red Blood Cells-Urine 0-5 SEEN /hpf (0-5); White Blood Cells 0-5 SEEN /hpf (0-5)
[2023-03-12] VITALS (8 sets, daily range): BP systolic 101–133; BP diastolic 77–92; PULSE 66–77; RESP 16–18; TEMP 36.5–37.2; O2SAT 93–97; BMI 17.4
[2023-03-12 07:02] LABS: Cholesterol 117 mg/dL (200); High Density Lipoprotein 67 mg/dL; Triglycerides 88 mg/dL; Very Low Density Lipoprotein 18 mg/dL (5-40)
--- NOTE | 2023-03-12 07:32 | PCM.PN.HOSP ---
Reason for Visit Reason for Visit: Diagnoses Disorientation, unspecified (03/11/23) Subjective Subjective Patient is a 77-year-old lady admitted with transient confusion and slurred speech admitted to monitored bed for further management Objective Data Objective Data Vital Signs: Vital Signs Temp Pulse Resp BP Pulse Ox O2 Del Method 97.7 F L 66 18 128/85 H 96 Room Air 03/12/23 04:45 03/12/23 04:45 03/12/23 04:45 03/12/23 04:45 03/12/23 04:45 03/12/23 04:45 Oxygen Delivery Method Room Air Weight: 46.2 kg Body Mass Index (BMI) 17.4 Intake & Output: Intake and Output for Last 24 Hours 03/10/23 03/11/23 03/12/23 23:59 23:59 23:59 Intake Total 200 / 200 Balance 200 / 200 Lab / Micro Data Result Diagrams: 03/11/23 17:50 03/11/23 17:50 Labs: Laboratory Results - last 24 hr 03/11/23 17:50: WBC 7.0, RBC 4.85, Hgb 15.6 H, Hct 47.5 H, MCV 97.9, MCH 32.2 H, MCHC 32.8, RDW Std Deviation 47.3 H, RDW Coeff of [place] 13.2, Plt Count 267, MPV 8.9, Immature Gran % (Auto) 0.100, Neut % (Auto) 61.7, Lymph % (Auto) 27.8, [place] % (Auto) 8.1, Eos % (Auto) 1.6, Baso % (Auto) 0.7, Absolute Neuts (auto) 4.3, Absolute Lymphs (auto) 1.95, Nucleated RBC % 0 03/11/23 17:50: PT 12.0, INR 0.9, APTT 26.6 03/11/23 17:50: Sodium 141, Potassium 3.9, Chloride 106, Carbon Dioxide 27.0, Anion Gap 8, BUN 21 H, Creatinine 1.12 H, Estim Creat Clear Calc 31.48, Est GFR (MDRD) Af Amer 61, Est GFR (MDRD) Non-Af 50 L, BUN/Creatinine Ratio 18.8, Glucose 116 H, Calcium 10.6 H, Troponin I High Sens 32 03/11/23 18:04: POC Glucose 110 H 03/11/23 20:15: Troponin I High Sens 29 03/11/23 23:20: Urine Color Yellow, Urine Clarity Clear, Urine pH 6.5, Ur Specific [place] 1.015, Urine Protein 15 H, Urine Glucose (UA) Normal, Urine Ketones Negative, Urine Occult Blood 10 H, Urine Nitrite Negative, Urine Bilirubin Negative, Urine Urobilinogen Normal, Ur Leukocyte Esterase 25 H, Urine RBC 0-5 SEEN, Urine WBC 0-5 SEEN, Ur Squamous Epith Cells 0 SEEN, Urine Bacteria 0 SEEN, Urine Mucus 0 SEEN 03/12/23 05:09: Triglycerides 88, Cholesterol 117, LDL Cholesterol 32, VLDL Cholesterol 18, HDL Cholesterol 67 Radiography Diagnostic Testing: Radiology Impression Brain CT 03/11/23 17:52 IMPRESSION: 1. No acute intracranial hemorrhage or mass effect. Electronically Signed: Mickey Jose (Brooks), at 18:08 EDT , ADDENDUM: 03/11/23 1816 IMPRESSION: 1. No acute intracranial hemorrhage or mass effect. N.B. : The above Results were Read Back by Mickey Jose (Brooks) to Rafat Azevedo MD, and understanding confirmed on 03/11/2023 18:09:49 (ET). Electronically Signed: Mickey Jose (Brooks), at 18:08 EDT , Head/Neck CTA 03/11/23 17:52 IMPRESSION: Negative CTA carotid and CTA brain. Electronically Signed: Mickey Jose (Brooks), at 18:19 EDT , ADDENDUM: 03/11/23 1833 IMPRESSION: Negative CTA carotid and CTA brain. N.B. : The above Results were Read Back by Mickey Jose (Brooks) to Rafat Azevedo MD, and understanding confirmed on 03/11/2023 18:26:49 (ET). Electronically Signed: Arevalo (Brooks) Damon, at 18:19 EDT , Chest X-Ray 03/11/23 18:30 IMPRESSION: Nonacute portable x-ray examination of the chest. Electronically Signed: Arevalo (Brooks) Damon, at 18:57 EDT , Physical Exam Narrative GENERAL: cooperative HEENT: Atraumatic; normocephalic EYES; Anicteric, Normal Conjunctiva NECK; supple, normal thyroid, RESPIRATORY: Diminished to auscultation CARDIOVASCULAR: Regular S1 S2, GI: soft, normoactive bowel sounds, : No Renal angle tenderness; EXTREMITIES: No edema, no clubbing, MUSCULOSKELETAL: no muscle wasting NEURO: Awake; no lateralizing signs. SKIN: No Rash PSYCH; Flat affect Assessment & Plan Assessment/Plan (1) Transient confusion: PLAN: Plan Patient is a 77-year-old lady admitted with transient confusion and slurred speech admitted to monitored bed for further management 1. Transient global amnesia ? Patient has been admitted to a monitored bed placed on every 4 neurochecks plan is for patient to undergo further evaluation with an MRI of the brain to rule out CVA. Patient is already on aspirin and atorvastatin was started on clopidogrel 2. Hypertension - Blood pressure controlled, home medications continued with dose adjustment as needed 3. Dyslipidemia -Patient is on statin therapy, continued at home dose 4. Osteoporosis ? Patient is on alendronate 5. Suspected dementia ? Patient to undergo assessment as outpatient by PCP 6. DVT prophylaxis - On enoxaparin Time spent in the patient's overall evaluation,decision-making process, review of diagnostic data, adjustment of management, discussion with other providers, nursing nursing and ancillary staff involved in patient's care documentation, 40 Minutes Charges/Coding Visit Charges Inpatient E&M: 25943 Subs Hosp L2
[2023-03-12] MEDS: Clopidogrel Bisulfate 75 MG Tablet PO (09:46)
[2023-03-12] MEDS: Aspirin E.C. 81 MG Tablet PO (09:46)
[2023-03-12] MEDS: Heparin Injection (Vial) 5,000 UNIT/ML VIAL 5000 UNIT SC ×2 (09:48→20:53)
[2023-03-12] MEDS: Atorvastatin Calcium 80 MG Tablet PO (20:53)
[2023-03-12] MEDS: Mirtazapine 30 MG Tablet PO (21:04)
[2023-03-13 00:50] VITALS: BP 148/94; PULSE 64; RESP 16; TEMP 36.8; O2SAT 98
[2023-03-13 04:50] VITALS: BP 160/87; PULSE 67; RESP 18; TEMP 36.1; O2SAT 96
[2023-03-13 08:50] VITALS: BP 147/101; PULSE 65; RESP 16; TEMP 36.5; O2SAT 100
--- NOTE | 2023-03-13 09:00 | MRI_ITS ---
STUDY: MRI BRAIN WITHOUT CONTRAST REASON FOR EXAM: Female, 77 years old. confusion, APHASIA TECHNIQUE: Standardized multiplanar fat and water weighted pulse sequences were obtained. COMPARISON: Head CT dated March 11, 2023. MRI of the brain dated January 14, 2023 FINDINGS: There is moderate cerebral atrophy with widening of the extra-axial spaces and ventricular dilatation. There are multiple confluent white matter hyperintensities, distributed throughout the deep white matter tracts of the cerebral hemispheres, consistent with severe chronic white matter ischemic changes. There is no evidence for recent intracranial ischemia or other cause of cytotoxic edema on diffusion weighted imaging (DWI). Normal T2* images of the brain without demonstrated susceptibility artifact. There is no demonstrated hemosiderin stain. Normal bilateral basal ganglia. Normal thalami. There is no extra-axial fluid accumulation. Normal flow voids within the major intracranial circulation suggesting patency by spin echo criteria. Normal sella turcica, pituitary gland, infundibular stalk, optic chiasm and hypothalamus. Normal tectal plate and pineal gland. There are chronic white matter ischemic changes of the rossi. The midbrain and medulla are otherwise normal. Normal cerebellum. Normal basal cisterns. Normal bilateral temporal bones. Normal bilateral internal auditory canals. No demonstrated orbital abnormality, within the constraints of a routine brain study. Normal visualized paranasal sinuses. Normal calvarium and skull base. Normal visualized soft tissue structures. Normal visualized upper cervical spine. MRI/Brain without Contrast IMPRESSION: 1. Involutional and severe chronic ischemic changes of the brain, as described above. 2. No demonstrated acute infarct. Electronically Signed: Joe Reardon MD at 10:25 EDT ,
[2023-03-13] MEDS: Aspirin E.C. 81 MG Tablet PO ×2 (09:14)
[2023-03-13] MEDS: Clopidogrel Bisulfate 75 MG Tablet PO (09:14)
[2023-03-13] MEDS: Lisinopril 10 MG Tablet PO (09:14)
[2023-03-13] MEDS: Heparin Injection (Vial) 5,000 UNIT/ML VIAL 5000 UNIT SC (09:14)
--- NOTE | 2023-03-13 10:40 | CASEMGMT ---
RN CM Face to Face with patient for initial transition planning/care coordination assessment. RN CM introduced self and role at [facility]. Patient lying in bed, alert and oriented. Patient willing to participate in assessment and is able to answer all questions appropriately. Care providers, pharmacy, and demographics verified. Patient wishes to discharge home, denies need for home health at this time, family at bedside. Patient states he has no further needs or concerns at this time. CM to follow for discharge planning needs that may arise. PCP: Lore Specialists: Ellen Neurologist [facility]erred [facility]acy[facility] Insurance: [email or web address] Prescription Benefit: yes Living Will/HPOA: yes, daughter Darlin Tadeo LNOK: daughter, son Living Arrangements: Patient lives alone in a 2 story home. Patient is independent and able to ambulate stairs. Transportation: self, son, daughter DME/HHC: Patient denies DME in the home. Patient has had [facility] HHC in the past. No previous SNF Disposition Plan: Patient to discharge home with family support and follow-up plans in place. Julee KIM, RN, CM
--- NOTE | 2023-03-13 10:50 | DCINST_ITS ---
Discharge Instructions Diet Discharge Diet: No restrictions Activity Discharge Activity: Return to Normal Activity and May Not Drive Weight Bearing Status: Full weight bearing Follow Up Care Test Results: Test results from this visit will be discussed in further detail at your follow- up appointment, if applicable. Discharge Plan Admission Admit Date/Time: 03/11/23 20:04 Primary Reason for Your Visit: transient global amnesia Attending Provider: Vijay Juárez Primary Care Provider: Amisha Torrez Consulting Providers: Hai Naranjo ; Kenny Farr Discharge Orders/Prescriptions Prescriptions: Continued lisinopril 10 MG tablet 10 mg PO DAILY Qty: 30 0RF aspirin 81 mg Tablet,Delayed Release (Dr/Ec) 81 mg PO DAILY atorvastatin 80 mg tablet 80 mg PO QHS alendronate 35 mg tablet 35 mg PO DAILY mirtazapine 30 mg tablet 30 mg PO QHS Referrals / Follow Up: Amisha Torrez MD [Primary Care Provider] - Within 2 Weeks Disposition Disposition (needs filled in before D/C Order can be placed): Home, Self Care
--- NOTE | 2023-03-13 10:56 | PCM.DC.SUM ---
Providers Date of Admission: 03/11/23 Date of Discharge: 03/13/23 Primary Care Physician: Dr. Amisha Torrez MD Reason For Visit: CONFUSION Diagnosis Discharge Diagnosis (1) Transient confusion: Status: Acute Code(s): R41.0 - Disorientation, unspecified Plan 1. Transient global amnesia #2 dementia #3 essential hypertension Medications at Discharge Home Medications lisinopril 10 mg tablet 10 mg PO DAILY #30 tabs 02/25/19 aspirin 81 mg tablet,delayed release 81 mg PO DAILY heart health 07/20/22 alendronate 35 mg tablet 35 mg PO DAILY 03/11/23 atorvastatin 80 mg tablet 80 mg PO QHS 03/11/23 mirtazapine 30 mg tablet 30 mg PO QHS 03/11/23 Hospital Course Operations None Procedures None Summary of Care Provided Minutes Spent on Discharge: 32 Hospital Course: This 77-year-old white female was seen in the emergency room at [facility] after being brought in after a brief period of confusion, patient was also having some slight difficulty speaking with some slurring of her speech. She was not able to use a phone and she could not get the lid off of a water bottle. Patient had undergone work-up in the past for similar episodes, she was given aspirin to take for suspected TIAs, it was also noted that the patient has been having increased cognitive impairment over the past year according to the family. There is a strong suspicion of dementia although the patient has not been formally diagnosed with dementia. Imaging testing in the emergency room included a CT of the head and neck which was unremarkable, CT of the brain revealed no acute finding patient was asymptomatic in the emergency room. Patient was admitted to PCU, patient's symptoms did not recur, she underwent an MRI of the brain which showed involutional and severe chronic ischemic changes of the brain but no demonstrated infarct. This examiner felt that the patient could have had an episode of transient global amnesia, I also felt there is a high probability the patient had underlying dementia however, I discussed this with the patient's family members (son and [id number]), they did not wish the patient to be placed on medication for dementia, I did discuss the case with her primary care physician Dr. Torrez for follow-up continuity. On 03/13/2023, patient was seen and examined: On examination she appeared in good health and spirits, she does not appear to be in any distress. She does appear to have some cognitive impairment. Vital signs as documented. Skin warm and dry and without overt rashes. Neck without JVD, thyroid appears normal, trachea is midline, neck is supple. Lungs clear, normal air movement was noted. Heart exam notable for regular rhythm, normal sounds and absence of murmurs, rubs or gallops. Abdomen unremarkable and without evidence of organomegaly, masses, or abdominal aortic enlargement, bowel sounds are present in all 4 quadrants, no abdominal tenderness was noted. Extremities nonedematous, no cyanosis was noted, no clubbing was noted. Neuro: Cranial nerves II through XII are grossly intact, no focal motor deficits were noted, sensation to light touch and pinprick is intact, motor exam 5/5 throughout. Psych: Patient is alert and oriented x2, she exhibits some mild confusion On 03/13/2023, patient was seen and examined and felt to be stable for discharge home, family was cautioned against allowing the patient to drive. Weight / BMI Weight Weight: 46.2 kg Body Mass Index (BMI) 17.4 ABG / Lab / Microbiology Data Result Diagrams: 03/11/23 17:50 03/11/23 17:50 Radiography Diagnostic Testing: Radiology Impression Brain MRI 03/13/23 09:00 IMPRESSION: 1. Involutional and severe chronic ischemic changes of the brain, as described above. 2. No demonstrated acute infarct. Electronically Signed: Joe Reardon MD at 10:25 EDT Reading Location ID and State: [address] [place] [address] , Service support , D/C Instructions Discharge Diet: No restrictions Weight Bearing Status: Full weight bearing Meaningful Use Info Meaningful Use Diagnoses (Choose all that apply): None applicable Discharge Plan Admission Admit Date/Time: 03/11/23 20:04 Primary Reason for Your Visit: transient global amnesia Attending Provider: Vijay Juárez Primary Care Provider: Amisha Torrez Consulting Providers: Hai Naranjo ; Kenny Farr Discharge Orders/Prescriptions Prescriptions: Continued lisinopril 10 MG tablet 10 mg PO DAILY Qty: 30 0RF aspirin 81 mg Tablet,Delayed Release (Dr/Ec) 81 mg PO DAILY atorvastatin 80 mg tablet 80 mg PO QHS alendronate 35 mg tablet 35 mg PO DAILY mirtazapine 30 mg tablet 30 mg PO QHS Referrals / Follow Up: Amisha Torrez MD [Primary Care Provider] - Within 2 Weeks Disposition Disposition (needs filled in before D/C Order can be placed): Home, Self Care Charges/Coding Visit Charges Inpatient E&M: 04936 Disch Hosp >30min
[2023-03-13 11:10] VITALS: BMI 17.4
== END 2023-03-13 13:24 | disposition home or self-care (01) | DRG 72 ==
LOC: ED 18:21 → PCU 20:12
PROVIDERS: Emergency Provider Emergency Medicine; PCP Family Medicine; Visit Provider Internal Medicine
DX: G45.4 Transient global amnesia (principal); E78.5 Hyperlipidemia, unspecified; I10 Essential (primary) hypertension; F17.200 Nicotine dependence, unspecified, uncomplicated; H35.30 Unspecified macular degeneration; M81.0 Age-related osteoporosis without current pathological fracture; Z79.82 Long term (current) use of aspirin; Z79.899 Other long term (current) drug therapy; R47.81 Slurred speech; Z86.73 Personal history of transient ischemic attack (TIA), and cerebral infarction without residual deficits
CPT/HCPCS: 36415; 70450; 70496; 70498; 70551; 71045; 80048; 80061; 81001; 82962; 84484; 85025; 85610; 85730; 93005; 94762; 97161; 97165; 97802; 99285; Q9967; A4216

== ENCOUNTER → 2023-08-14 | Outpatient (CLI) | payer MEDICARE, OTHER, SELFPAY ==
[2023-08-14 12:02] LABS: Absolute Lymphocyte Count 2.15 X10^3/uL (0.83-4.51); Absolute Neutrophil Count 3.2 X10^3/uL (2.0-7.7); Basophil# 0.05 X10^3/uL; Basophil% 0.8 % (0-1); Eosinophils% 3.2 % (0-5); Hematocrit 53.1 % (37-47); Hemoglobin 16.2 g/dL (12.0-15.0); Lymphocyte # 2.15 X10^3/ul (0.83-4.51); Lymphocyte % 34.8 % (19-41); Mean Corp Hgb Conc 30.5 g/dL (32-36); Mean Corpuscular Hgb 30.3 pg (27.0-32.0); Mean Corpuscular Volume 99.3 fL (81-99); Mean Platelet Vol. 9.6 fl (6.2-12.0); Monocyte# 0.51 X10^3/uL; Monocyte% 8.3 % (0-10); NRBC Flagged by Analyzer 0 % (0-5); Neutrophil # 3.23 X10^3/uL (2.7-7.7); Neutrophil % 52.4 % (47-70); Platelet Count 253 K/mm3 (150-450); RBC Distribution Width CV 13.7 % (11.6-14.6); RBC Distribution Width SD 50.4 fl (35.1-43.9); Red Blood Count 5.35 M/mm3 (4.2-5.4); White Blood Count 6.2 K/mm3 (4.4-11.0)
[2023-08-14 12:15] LABS: Vitamin B12 248 pg/mL (211-911); Vitamin D,25 Hydroxy 16.3 ng/mL
[2023-08-14 12:20] LABS: ALB/GLOB Ratio 1.2 RATIO (0.9-2.4); AST(SGOT) 21 U/L (15-37); Alanine Aminotransfer ALT/SGPT 23 U/L (13-56); Albumin, Serum 3.9 g/dL (3.2-5.0); Alkaline Phosphatase 133 U/L (45-117); Anion Gap 8 (5-15); BUN 16 mg/dL (7-18); BUN/Creat Ratio 17.7 RATIO (10-20); Calcium,Total 9.5 mg/dL (8.5-10.1); Chloride 108 mmol/L (98-107); Cholesterol 152 mg/dL (200); EST Glomerular Filtration Rate 64 mL/min (>60); Est Glom Filt Rate - Afr Amer 78 mL/min (>60); Globulin 3.2 g/dL (2.2-4.2); Glucose 98 mg/dL (74-106); High Density Lipoprotein 87 mg/dL; Potassium 3.6 mmol/L (3.5-5.1); Protein, Total 7.1 g/dL (6.4-8.2); Sodium Level 142 mmol/L (136-145); Triglycerides 115 mg/dL; Very Low Density Lipoprotein 23 mg/dL (5-40)
== END | disposition home or self-care (01) ==
LOC: BFHLAB 10:34
PROVIDERS: PCP Family Medicine; Referring Provider Family Medicine; Visit Provider Family Medicine
DX: I65.21 Occlusion and stenosis of right carotid artery (principal); I10 Essential (primary) hypertension; M81.0 Age-related osteoporosis without current pathological fracture; E55.9 Vitamin D deficiency, unspecified; R53.83 Other fatigue
CPT/HCPCS: 36415; 80053; 80061; 82306; 82607; 85025

== ENCOUNTER → 2023-10-12 | Outpatient (CLI) | payer MEDICARE, OTHER, SELFPAY ==
--- NOTE | 2023-10-12 12:27 | BI_ITS ---
MAMMOGRAPHY - BILATERAL SCREENING REASON FOR EXAM: Female, 77 years old. Routine annual screening examination. PERTINENT HISTORY: Non-contributory. TECHNIQUE: Digital bilateral breast sj (3D mammographic acquisition) in the CC and MLO projections. 2-D mediolateral oblique (MLO) and craniocaudad (CC) views of both breasts were obtained. CAD: Full Field Digital Mammography with Computer Added Detection was performed. COMPARISON: Comparison is made with prior outside examination dated September 23, 2019. FINDINGS: Breast Composition: The breasts are heterogeneously dense, which may obscure small masses. Stable 1.6 cm x 1 cm well-defined nodule in the deep slightly medial aspect of the left breast. Correlation with ultrasound is recommended. No other significant abnormalities are identified. BI/SCRN MAMM (CAD)W/SJ BILAT IMPRESSION: Stable 1.6 cm x 1 cm well-defined nodule in the deep slightly medial aspect of the left breast as described. Correlation with ultrasound is recommended. ASSESSMENT CATEGORY: BIRADS Category 0: Incomplete. Need additional imaging evaluation. A letter regarding these results will be sent to the patient by the facility within 30 days. Approximately 10% of breast cancers are not detected by mammography. A normal mammogram should not delay biopsy of a clinically suspicious abnormality. [id number] Electronically Signed: Coleman Deshpande MD at 9:02 EST ,
--- NOTE | 2023-10-12 12:31 | BD_ITS ---
STUDY: DUAL ENERGY X-RAY ABSORPTIOMETRY / DXA REASON FOR EXAM: Female, 77 years old. M810 TECHNIQUE: Bone Mineral Density (BMD) measurements of lumbar spine and bilateral hips were obtained. COMPARISON: None. FINDINGS: Lumbar Spine (L1-L4): g/cm2 (0.501) / T-score (-5.0) / Z-score (-2.4) Findings are suggestive of osteoporosis with a high fracture risk. Left Femur Total: g/cm2 (0.552) / T-score (-3.2) / Z-score (-1.3) Left Femoral Neck: g/cm2 (0.500) / T-score (-3.1) / Z-score (-0.9) Right Femur Total: g/cm2 (0.510) / T-score (-3.5) / Z-score (-1.6) Right Femoral Neck: g/cm2 (0.442) / T-score (-3.7) / Z-score (-1.5) BD/Dexa Bone Density Study IMPRESSION: The patient is considered osteoporotic as outlined below according to World [employer] Organization (WHO) criteria with a high fracture risk. Reference Information: The T-score is the number of standard deviations above or below the standard which is normal for young adults at their peak bone mineral density. The World Health Organization (WHO) interprets the T-scores as follows: Above -1 Normal bone density Between -1 and -2.5 Osteopenia Equal to / or below -2.5 Osteoporosis As a practical clinical guideline, osteopenia may be graded as follows: Mild -1 through -1.5 Moderate -1.6 through -2.0 Severe -2.1 through -2.4 The Z-score is the number of standard deviations above or below age-matched controls. A Z-score of less than -1.5 would be considered abnormal. References: 1. NIH Osteoporosis and Related Bone Diseases www osteo.org 2. International Society for Clinical Densitometry www iscd.org 3. National Osteoporosis Foundation www nof.org Electronically Signed: Coleman Deshpande MD at 13:49 EST ,
== END | disposition home or self-care (01) ==
LOC: OPBD 12:25
PROVIDERS: PCP Family Medicine; Referring Provider Family Medicine; Visit Provider Family Medicine
DX: Z12.31 Encounter for screening mammogram for malignant neoplasm of breast (principal); M81.0 Age-related osteoporosis without current pathological fracture
CPT/HCPCS: 77063; 77067; 77080

== ENCOUNTER → 2023-10-19 | Outpatient (CLI) | payer MEDICARE, OTHER, SELFPAY ==
--- NOTE | 2023-10-19 14:31 | US_ITS ---
STUDY: ULTRASOUND BREAST - LEFT REASON FOR EXAM: Female, 77 years old. Abnormal screening mammogram. TECHNIQUE: Axial and longitudinal images of the LEFT breast were performed with a high resolution ultrasound transducer. # OF IMAGES: 25 COMPARISON: Comparison is made with prior mammogram dated October 12, 2023. FINDINGS: LEFT Breast: The inferior medial aspect of the left breast was examined with ultrasound. The mammographic abnormality corresponds to a 1.6 cm x 1.6 cm x 0.4 cm at the 6:00 position of the breast at 2 cm from the nipple. 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 Biopsy recommended. US/Breast Limited Unilateral IMPRESSION: The mammographic abnormality corresponds to a 1.6 cm x 1.6 cm x 0.4 cm well-defined hypoechoic nodule at the 6:00 position of the breast at 2 cm from the nipple. Biopsy recommended. ASSESSMENT CATEGORY: BIRADS Category 4: Suspicious - Biopsy Should Be Considered. A letter regarding these results will be sent to the patient by the facility within 30 days. Electronically Signed: Coleman Deshpande MD at 15:12 EST ,
== END | disposition home or self-care (01) ==
LOC: OPUS 14:29
PROVIDERS: PCP Family Medicine; Referring Provider Family Medicine; Visit Provider Family Medicine
DX: N63.20 Unspecified lump in the left breast, unspecified quadrant (principal); R92.8 Other abnormal and inconclusive findings on diagnostic imaging of breast
CPT/HCPCS: 76642

== ENCOUNTER → 2023-10-25 | Outpatient (CLI) | payer MEDICARE, OTHER, SELFPAY ==
--- NOTE | 2023-10-25 13:00 | BRBX_PTH ---
PATIENT: FREDDY WHITTINGTON [facility] U#:[id number] AGE/SX: 77/F ROOM: RE10/25/[address]: Dr. April Koroma MD : 1945 BED: DIS: 10/25/2023 SPEC #: [id number] RECD: 10/26/23 09:12 STATUS: SHANE REQ #: [id number] ZANDRA: 10/25/23 13:[address]: April Koroma DEPT: SURGICAL PATHOLOGY RECD BY: Shena Leyva ENTERED: 10/26/23 09:13 SP TYPE: BREAST BX OTHR DR: Dr. Amisha Torrez MD Tissues: Left breast, NOS Procedures: Surgery Specimen Level IV HEADER OPERATION: Left breast mass biopsy PRE-OP DIAGNOSIS: Likely fibroadenoma TISSUE SUBMITTED: Left breast mass tissue 6 o'clock, 1.0 cm from nipple MICROSCOPIC DIAGNOSIS Left breast mass tissue, 6 o'clock, 1 cm from the nipple, core biopsy: Fragments of benign breast tissue with focal dense fibrosis. Lobular involution. Negative for atypia or malignancy. See comment. SHOLA:laura 10/27/2023 COMMENT Correlation with clinical, radiologic findings and appropriate follow up are necessary. MICROSCOPIC DESCRIPTION Slides are reviewed. GROSS DESCRIPTION Received in fixative is one container labeled with the patient's name and designated left breast mass 6 o'clock. The specimen consists of multiple elongated fragments of osborne-yellow fibroadipose tissue that in aggregate measure 1.0 x 0.2 x 0.1 cm. The entire specimen is submitted in one cassette. / SJ:laura 10/26/2023 TC:5 Ischemic Time: 1 minute Fixation Time: 30.5 hours CPT: 44886
== END | disposition home or self-care (01) ==
LOC: LABSPEC 15:51
PROVIDERS: PCP Family Medicine; Referring Provider Surgery; Visit Provider Surgery
DX: N63.20 Unspecified lump in the left breast, unspecified quadrant (principal)
CPT/HCPCS: 88305

== ENCOUNTER → 2024-03-01 | Outpatient (CLI) | payer MEDICARE, OTHER, SELFPAY ==
--- NOTE | 2024-03-01 13:13 | US_ITS ---
STUDY: ULTRASOUND BREAST - LEFT REASON FOR EXAM: Female, 78 years old. Short-term follow-up of left breast nodule. TECHNIQUE: Axial and longitudinal images of the LEFT breast were performed with a high resolution ultrasound transducer. # OF IMAGES: 11 COMPARISON: Comparison is made with prior sonogram dated October 19, 2023. FINDINGS: LEFT Breast: Stable 1.6 cm x 1.6 cm x 0.6 cm well-defined hypoechoic nodule at the 6:00 position of the breast at 2 cm from the nipple. This is unchanged. 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 US/Breast Limited Unilateral IMPRESSION: Stable examination. ASSESSMENT CATEGORY: BIRADS Category 2: Benign. A letter regarding these results will be sent to the patient by the facility within 30 days. Electronically Signed: Coleman Deshpande MD at 14:27 EDT ,
== END | disposition home or self-care (01) ==
LOC: OPUS 13:12
PROVIDERS: PCP Family Medicine; Referring Provider Surgery; Visit Provider Surgery
DX: R92.8 Other abnormal and inconclusive findings on diagnostic imaging of breast (principal); N63.20 Unspecified lump in the left breast, unspecified quadrant
CPT/HCPCS: 76642

== ENCOUNTER → 2024-09-18 | Outpatient (CLI) | payer MEDICARE, OTHER, SELFPAY ==
[2024-09-18 18:16] LABS: Absolute Neutrophil Count 5.8 X10^3/uL (2.0-7.7); Basophil# 0.03 X10^3/uL; Basophil% 0.4 % (0-1); Eosinophil# 0.06 X10^3/uL; Eosinophils% 0.8 % (0-5); Hematocrit 50.8 % (37-47); Hemoglobin 16.1 g/dL (12.0-15.0); Lymphocyte % 15.6 % (19-41); Mean Corp Hgb Conc 31.7 g/dL (32-36); Mean Corpuscular Hgb 30.7 pg (27.0-32.0); Mean Corpuscular Volume 96.8 fL (81-99); Mean Platelet Vol. 9.8 fl (6.2-12.0); Monocyte# 0.62 X10^3/uL; Monocyte% 8.1 % (0-10); NRBC Flagged by Analyzer 0 % (0-5); Neutrophil # 5.75 X10^3/uL (2.7-7.7); Neutrophil % 74.8 % (47-70); Platelet Count 232 K/mm3 (150-450); RBC Distribution Width CV 13.2 % (11.6-14.6); Red Blood Count 5.25 M/mm3 (4.2-5.4); White Blood Count 7.7 K/mm3 (4.4-11.0)
[2024-09-18 18:28] LABS: ALB/GLOB Ratio 1.3 RATIO (0.9-2.4); AST(SGOT) 17 U/L (15-37); Alanine Aminotransfer ALT/SGPT 17 U/L (13-56); Albumin, Serum 4.2 g/dL (3.2-5.0); Alkaline Phosphatase 92 U/L (45-117); Anion Gap 6 (5-15); BUN 13 mg/dL (7-18); BUN/Creat Ratio 15.6 RATIO (10-20); Calcium,Total 9.6 mg/dL (8.5-10.1); Chloride 106 mmol/L (98-107); Cholesterol 224 mg/dL (200); Creatinine, Serum 0.84 mg/dL (0.55-1.02); EST Glomerular Filtration Rate 70 mL/min (>60); Est Glom Filt Rate - Afr Amer 85 mL/min (>60); Globulin 3.2 g/dL (2.2-4.2); Glucose 128 mg/dL (74-106); High Density Lipoprotein 69 mg/dL; Potassium 3.3 mmol/L (3.5-5.1); Protein, Total 7.4 g/dL (6.4-8.2); Sodium Level 140 mmol/L (136-145); Triglycerides 167 mg/dL; Very Low Density Lipoprotein 33 mg/dL (5-40)
[2024-09-18 18:39] LABS: Vitamin B12 > 2000 pg/mL (211-911); Vitamin D,25 Hydroxy 9.2 ng/mL
== END | disposition home or self-care (01) ==
LOC: BFHLAB 13:51
PROVIDERS: PCP Family Medicine; Referring Provider Family Medicine; Visit Provider Family Medicine
DX: Z00.00 Encounter for general adult medical examination without abnormal findings (principal); I10 Essential (primary) hypertension; M81.0 Age-related osteoporosis without current pathological fracture
CPT/HCPCS: 36415; 80053; 80061; 82306; 82607; 85025

== ENCOUNTER 2025-10-16 18:20 | Observation (INO) | payer MEDICARE, OTHER, SELFPAY ==
[2025-10-16] VITALS (7 sets, daily range): BP systolic 141–180; BP diastolic 86–129; PULSE 73–86; RESP 13–24; TEMP 36.4–37.1; O2SAT 96–99; BMI 20.5; BMI 14.3; BMI 14.8
--- NOTE | 2025-10-16 00:20 | RAD_ITS ---
PROCEDURE: CHEST PA AND LATERAL 10/17/2025 REASON FOR EXAM: DYSPNEA TECHNIQUE: Procedure Code: RADCXR Modality: DX Procedure: CHEST PA AND LATERAL COMPARISON: 03/11/2023. FINDINGS: Unchanged emphysema. Unchanged S shaped thoracolumbar scoliosis. Mild increase in the ectasia of the aortic arch. The lungs are expanded. There is no demonstrated acute parenchymal abnormality. There is no demonstrated pleural abnormality. Enlarged cardiac silhouette. Normal mediastinum and hermilo. Normal visualized pulmonary arteries. Diffuse spondylosis of the visualized thoracic spine. Normal visualized ribs, clavicles. Degenerative joint disease. There is no demonstrated abnormality of the visualized soft tissue structures of the upper abdomen. RAD/Chest PA and Lateral IMPRESSION: No evidence for acute abnormality. Reading [facility]
--- OUTSIDE RECORDS SUMMARY | 2025-10-16 18:29 | XMS RPT_ITS | CCD ---
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 Amisha Torrez Primary Care Provider Dr. Vijay Juárezit Provider Dr. Vijay Juárez Other Provider Dr. Hai Doe Other Provider Donnell BENCH LATHE OPERATOR, RAFAL-C Neelam Attending Provider Dr. Cresencio Villarreal Attending Provider Dr. Rene Davis Attending Provider Dr. Rene Davis Other Provider MD Ike Palacios Emergency Provider Dr. Amisha Torrez Primary Care Provider Dr. Vijay Juárezit Provider Dr. Vijay Juárez Attending Provider Dr. Vijay Juárez Other Provider Dr. Hai Doe Other Provider Dr. Cresencio Villarreal Attending Provider Dr. Hai Doe Attending Provider Dr. Vijay Juárez Referring Provider Dr. Rene Davis Attending Provider Dr. Rene Davis Other Provider Dr. Amisha Torrez Primary Care Provider Dr. Amisha Torrez Referring Provider PHILLIP Alegre Attending Provider Ricardo, Dr. Mckeon Attending Provider Dr. Constantino Munguia Emergency Provider Koram, Dr. Quin De Guzman Admit Provider Koram, Dr. Quin De Guzman Attending Provider Koram, Dr. Quin De Guzman Other Provider Alonso Obando MD Primary Care Provider Dr. Amisha Torrez Primary Care Provider Ricardo, Dr. Mckeon Attending Provider Dr. Constantino Munguia Emergency Provider Koram, Dr. Quin De Guzman Admit Provider Koram, Dr. Quin eD Guzman Attending Provider Koram, Dr. Quin De Guzman Other Provider Dr. Rafat Azevedo Emergency Provider [phone] Hai Naranjo Admit Provider Dr. Hai Naranjo Attending Provider Dr. Hai Naranjo Other Provider Dr. Kenny Farr Attending Provider Unavailable Dr. Kenny Farr Other Provider Unavailable ALONSO OBANDO Primary Care Unavailable MELIZA, YOUSEF Attending Unavailable ALONSO OBANDO Primary Care Unavailable MELIZA, YOUSEF Referring Unavailable ALONSO OBANDO R Primary Care Unavailable MELIZA, YOUSEF Referring Unavailable KEN GABRIEL Attending Unavailable KEN GABRIEL Attending Unavailable ALONSO OBANDO R Primary Care Unavailable JOSEAMMAD, YOUSEF Referring Unavailable LA NEWBERRY Attending Unavailable ALONSO OBANDO R Primary Care Unavailable MOHAMMAD, YOUSEF Referring Unavailable ALONSO OBANDO Primary Care Unavailable Ctfaisal Amisha Referring Unavailable Amisha Torrez Attending Unavailable Miedshawn Amisha Primary Care Unavailable Miedshawn Amisha Primary Care Unavailable Ga, April Referring Unavailable April Koroma Attending Unavailable Lore Amisha Primary Care Unavailable Robotham, April Referring Unavailable Robotfelpie, April Attending Unavailable Lore, Amisha Referring Unavailable Lore, Amisha Primary Care Unavailable April Koroma Attending Unavailable Medications Current Medications Medication Drug Class(es) Dates Sig (Normalized) Sig (Original) alendronic acid 35 mg oral tablet (6 sources) Bisphosphonate Start: 03-11-2023 take 35 mg by mouth once daily Alendronate Active 35 MG PO DAILY March 11, 2023 12:00am aspirin 81 mg delayed release oral tablet (10 sources) Platelet Aggregation Inhibitor, Nonsteroidal Anti-inflammatory Drug Start: 07-20-2022 take 81 mg by mouth once daily Aspirin Active 81 MG PO DAILY July 20, 2022 12:00am atorvastatin 80 mg oral tablet (15 sources) HMG-CoA Reductase Inhibitor Start: 03-11-2023 take 80 mg by mouth at bedtime Atorvastatin Active 80 MG PO AT BEDTIME March 11, 2023 12:00am Start: 07-21-2022 End: 10-11-2022 take 80 mg by mouth at bedtime Atorvastatin Discontinu ed 80 MG PO AT BEDTIME July 21, 2022 12:00am October 11, 2022 2:06pm calcium carbonate 1250 mg chewable tablet (1 source) Start: 10-25-2023 take 1 tablet by mouth once daily Calcium Carbonate (Calcium 500) 500 mg calcium (1,250 mg) tablet,chewable Active 500 MG PO DAILY October 25, 2023 1:00am lisinopril 10 mg oral tablet (10 sources) Angiotensin Converting Enzyme Inhibitor Start: 02-25-2019 take 10 mg by mouth once daily Lisinopril Active 10 MG PO DAILY February 25, 2019 12:00am mirtazapine 30 mg oral tablet (6 sources) Start: 03-11-2023 take 30 mg by mouth at bedtime Mirtazapine Active 30 MG PO AT BEDTIME March 11, 2023 12:00am Completed/Discontinued Medications Medication Drug Class(es) Dates Sig (Normalized) Sig (Original) [id number] 200 actuat albuterol 0.09 mg/actuat metered dose inhaler (6 sources) beta2-Adrenergic Agonist Start: 01-15-2016 take 2 puff(s) by inhalation every six hours as needed albuterol HFA (PROAIR HFA) 90 mcg/actuation inhaler Indications: Acute bronchitis, unspecified organism Inhale 2 Puffs as instructed every 6 hours as needed. 1 Inhaler 0 01/15/2016 Active Comment on above: Inhale 2 Puffs as in structed every 6 hours as needed. calcium carbonate 600 mg / cholecalciferol 125 unt oral tablet (6 sources) Vitamin D Start: 08-08-2008 calcium carbonate/vitamin d3(CALCIUM 600 + D 600 MG-125 UNIT TAB) Take one(1) tablet twice daily. 0 08/08/2008 Active Comment on above: Take one(1) tablet t wice daily. ibandronic acid 150 mg oral tablet (6 sources) Bisphosphonate Start: 12-16-2011 take 1 tablet by mouth every month in the morning Ibandronate (BONIVA) 150 mg ORAL tablet Indications: Osteoporosis Take 1 tablet by mouth once every month. IN THE MORNING WITH A FULL GLASS OF WATER, ON AN EMPTY STOMACH, AND DO NOT TAKE ANYTHING ELSE BY MOUTH OR LIE DOWN FOR THE NEXT 30 MINUTES. 1 tablet 11 12/16/2011 Active Comment on above: Take 1 tablet by catia th once every month. IN THE MORNING WITH A FULL GLASS OF WATER, ON AN EMPTY STOMACH, AND DO NOT TAKE ANYTHING ELSE BY MOUTH OR LIE DOWN FOR THE NEXT 30 MINUTES. sertraline 100 mg oral tablet (6 sources) Serotonin Reuptake Inhibitor Start: 10-15-2010 take 1 tablet by mouth once daily sertraline (ZOLOFT) 100 mg ORAL tablet Take one(1) tablet daily. 0 10/15/2010 Active Comment on above: Take one(1) tablet d aily. SUMAtriptan 50 mg oral tablet (6 sources) Serotonin-1b and Serotonin-1d Receptor Agonist Start: 01-24-2011 sumatriptan (IMITREX) 50 mg ORAL tablet Take 1 tablet by mouth as needed. 9 tablet 11 01/24/2011 Active Comment on above: Take 1 tablet by catia th as needed. THERAPEUTIC MULTIVITAMIN TAB (6 sources) Start: 08-08-2008 THERAPEUTIC MULTIVITAMIN TAB Take one(1) tablet daily. 0 08/08/2008 Active Comment on above: Take one(1) tablet d aily. 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] Onset: 01-25-2023 Chronic Adjustment disorders (6 sources) Adjustment disorder with depressed mood; Translations: [Adjustment disorder with depressed mood] Onset: 10-20-2008 10-20-2008 Chronic Disorders of lipid metabolism (1 source) Mixed hyperlipidemia; Translations: [Mixed hyperlipidemia] Onset: 07-20-2023 Chronic Essential hypertension (13 sources) Hypertensive disorder; Translations: [Essential (primary) hypertension] Onset: 07-20-2023 Chronic Fluid and electrolyte disorders (10 sources) Dehydration; Translations: [Dehydration] 02-25-2019 Episodic Headache; including migraine (6 sources) Migraine; Translations: [Migraine, unspecified, not intractable, without status migrainosus] Onset: 10-15-2010 10-15-2010 Chronic Osteoporosis (6 sources) Postmenopausal osteoporosis; Translations: [Age-related osteoporosis without current pathological fracture] Onset: 10-26-2010 11-01-2021 Chronic Other circulatory disease (1 source) Elevated blood-pressure reading without diagnosis of hypertension; Translations: [Elevated blood-pressure reading, without diagnosis of hypertension] Episodic Other circulatory disease (5 sources) H/O: hypertension; Translations: [Personal history of other diseases of the circulatory system] 03-11-2023 Episodic Other circulatory disease (1 source) Personal history of other diseases of the circulatory system; Translations: [Personal history of other diseases of circulatory system] 03-13-2023 Episodic Other connective tissue disease (10 sources) Neurological symptom; Translations: [Unspecified symptoms and signs involving the nervous system] 02-25-2019 Episodic Other connective tissue disease (3 sources) Unspecified symptoms and signs involving the nervous system; Translations: [Other symptoms involving nervous and musculoskeletal systems] 01-14-2023 Episodic Other hereditary and degenerative nervous system conditions (1 source) Mild cognitive impairment, so stated; Translations: [Mild cognitive impairment] Onset: 07-20-2023 Chronic Peripheral and visceral atherosclerosis (1 source) Peripheral vascular disease, unspecified; Translations: [Small vessel disease (HCC)] Onset: 07-20-2023 Chronic Residual codes; unclassified (17 sources) Confusional state; Translations: [Disorientation, unspecified] Episodic Residual codes; unclassified (6 sources) Disorientation, unspecified; Translations: [Unspecified psychosis] Episodic Residual codes; unclassified (5 sources) Transient altered mental status; Translations: [Disorientation, unspecified] 03-11-2023 Episodic Substance-related disorders (13 sources) Smoker; Translations: [Nicotine dependence, unspecified, uncomplicated] Onset: 07-20-2023 Chronic Transient cerebral ischemia (18 sources) Transient cerebral ischemia; Translations: [Transient cerebral ischemic attack, unspecified] Chronic Past or Other Problems Problem Classification Problem Date Documented Da te Episodic/Chronic Calculus of urinary tract (12 sources) Ureteric stone; Translations: [Calculus of ureter] Onset: 10-28-2009 10-28-2009 Episodic Epilepsy; convulsions (1 source) Unspecified convulsions; Translations: [Seizure (HCC)] Onset: 02-07-2023 Episodic Nonmalignant breast conditions (2 sources) Breast lump; Translations: [Unspecified lump in the left breast, unspecified quadrant] Onset: 11-01-2023 10-25-2023 Episodic Other diseases of kidney and ureters (6 sources) Hydronephrosis; Translations: [Unspecified hydronephrosis] Onset: 10-28-2009 10-28-2009 Episodic Other screening for suspected conditions (not mental disorders or infectious disease) (1 source) Other abnormal and inconclusive findings on diagnostic imaging of breast; Translations: [Other abnormal and inconclusive findings on diagnostic imaging of breast] Onset: 03-06-2024 Episodic Results Test Name Value Interpretation Reference Range Facility CBC W/Diff, Automatedon - Absolute Lymph 1.20 X10 3/uL Normal 0.83-4.51 [facility] Comment on above: Performed By: #### L 100.0100, L500.4050, L503.0105, L500.4100, L506.1000 #### [facility] [address] [place], [place], [id number] Absolute Neut 5.8 X10 3/uL Normal 2.0-7.7 [facility] Comment on above: Performed By: #### L 100.0100, L500.4050, L503.0105, L500.4100, L506.1000 #### [facility] [address] [place], [address] Basophils/100 WBC (Bld) 0.4 % Normal 0-1 [facility] Comment on above: Performed By: #### L 100.0100, L500.4050, L503.0105, L500.4100, L506.1000 #### [facility] [address] [place], [address] Eosinophils/100 WBC (Bld) 0.8 % Normal 0-5 [facility] Comment on above: Performed By: #### L 100.0100, L500.4050, L503.0105, L500.4100, L506.1000 #### [facility] [address] [place], [address] Erythrocyte distribution width (RBC) [Ratio] 13.2 % Normal 11.6-14.6 [facility] Comment on above: Performed By: #### L 100.0100, L500.4050, L503.0105, L500.4100, L506.1000 #### [facility] [address] [place], [address] Hematocrit (Bld) [Volume fraction] 50.8 % High 37-47 [facility] Comment on above: Performed By: #### L 100.0100, L500.4050, L503.0105, L500.4100, L506.1000 #### [facility] [address] [place], [address] Hemoglobin (Bld) [Mass/Vol] 16.1 g/dL High 12.0-15.0 [facility] Comment on above: Performed By: #### L 100.0100, L500.4050, L503.0105, L500.4100, L506.1000 #### [facility] [address] [place], [address] IG% 0.300 Normal 0.0-0.9 [facility] Comment on above: Result Comment: IG% - Immature Granulocytes (promyelocytes, myelocytes and metamyelocytes) > 1% indicates that a LEFT SHIFT is Present. Performed By: #### L 100.0100, L500.4050, L503.0105, L500.4100, L506.1000 #### [facility] [address] [place], [address] Lymphocytes/100 WBC (Bld) 15.6 % Low 19-41 [facility] Comment on above: Performed By: #### L 100.0100, L500.4050, L503.0105, L500.4100, L506.1000 #### [facility] [address] [place], [address] MCH (RBC) [Entitic mass] 30.7 pg Normal 27.0-32.0 [facility] Comment on above: Performed By: #### L 100.0100, L500.4050, L503.0105, L500.4100, L506.1000 #### [facility] [address] [place], [address] MCHC (RBC) [Mass/Vol] 31.7 g/dL Low 32-36 [facility] Comment on above: Performed By: #### L 100.0100, L500.4050, L503.0105, L500.4100, L506.1000 #### [facility] [address] [place], [address] MCV (RBC) [Entitic vol] 96.8 fL Normal 81-99 [facility] Comment on above: Performed By: #### L 100.0100, L500.4050, L503.0105, L500.4100, L506.1000 #### [facility] [address] [place], [address] Monocytes/100 WBC (Bld) 8.1 % Normal 0-10 [facility] Comment on above: Performed By: #### L 100.0100, L500.4050, L503.0105, L500.4100, L506.1000 #### [facility] [address] [place], [address] Neutrophils/100 WBC (Bld) 74.8 % High 47-70 [facility] Comment on above: Performed By: #### L 100.0100, L500.4050, L503.0105, L500.4100, L506.1000 #### [facility] [address] [place], [address] Nucleated RBC (Bld) [#/Vol] 0 10*3/uL Normal 0-5 [facility] Comment on above: Performed By: #### L 100.0100, L500.4050, L503.0105, L500.4100, L506.1000 #### [facility] [address] [place], [address] Platelet mean volume (Bld) [Entitic vol] 9.8 fL Normal 6.2-12.0 [facility] Comment on above: Performed By: #### L 100.0100, L500.4050, L503.0105, L500.4100, L506.1000 #### [facility] [address] [place], [address] Platelets (Bld) [#/Vol] 232 10*3/uL Normal 150-450 [facility] Comment on above: Performed By: #### L 100.0100, L500.4050, L503.0105, L500.4100, L506.1000 #### [facility] [address] [place], [address] RBC (Bld) [#/Vol] 5.25 10*6/uL Normal 4.2-5.[address] [facility] Comment on above: Performed By: #### L 100.0100, L500.4050, L503.0105, L500.4100, L506.1000 #### [facility] [address] [place], [address] RDW SD 47.0 fl High 35.1-43.9 [facility] Comment on above: Performed By: #### L 100.0100, L500.4050, L503.0105, L500.4100, L506.1000 #### [facility] [address] [place], [address] WBC (Bld) [#/Vol] 7.7 10*3/uL Normal 4.4-11.0 [facility] Comment on above: Performed By: #### L 100.0100, L500.4050, L503.0105, L500.4100, L506.1000 #### [facility] [address] [place], [address] Comprehensive Metabolic Prof [facility] 09-18-2024 Albumin [Mass/Vol] 4.2 g/dL Normal 3.2-5.0 [facility] Comment on above: Performed By: #### L 100.0100, L500.4050, L503.0105, L500.4100, L506.1000 #### [facility] [address] [place], [address] Albumin/Globulin [Mass ratio] 1.3 {ratio} Normal 0.9-2.4 [facility] Comment on above: Performed By: #### L 100.0100, L500.4050, L503.0105, L500.4100, L506.1000 #### [facility] [address] [place], [address] ALK P 92 U/L Normal 45-117 [facility] Comment on above: Performed By: #### L 100.0100, L500.4050, L503.0105, L500.4100, L506.1000 #### [facility] [address] [place], [address] ALT [Catalytic activity/Vol] 17 U/L Normal 13-56 [facility] Comment on above: Performed By: #### L 100.0100, L500.4050, L503.0105, L500.4100, L506.1000 #### [facility] [address] [place], [address] AST [Catalytic activity/Vol] 17 U/L Normal 15-37 [facility] Comment on above: Performed By: #### L 100.0100, L500.4050, L503.0105, L500.4100, L506.1000 #### [facility] [address] [place], [address] Bilirubin [Mass/Vol] 0.50 mg/dL Normal 0.20-1.00 [facility] Comment on above: Result Comment: For patients on eltrombopag therapy, use of Dimension [place] TBIL is not recommended. Performed By: #### L 100.0100, L500.4050, L503.0105, L500.4100, L506.1000 #### [facility] [address] [place], [address] BUN/CRE 15.6 RATIO Normal 10-20 [facility] Comment on above: Performed By: #### L 100.0100, L500.4050, L503.0105, L500.4100, L506.1000 #### [facility] [address] [place], [address] CA,Total 9.6 mg/dL Normal 8.5-10.1 [facility] Comment on above: Performed By: #### L 100.0100, L500.4050, L503.0105, L500.4100, L506.1000 #### [facility] [address] [place], [address] Chloride [Moles/Vol] 106 mmol/L Normal 98-107 [facility] Comment on above: Performed By: #### L 100.0100, L500.4050, L503.0105, L500.4100, L506.1000 #### [facility] [address] [place], [address] CO2 [Moles/Vol] 28.0 mmol/L Normal 21.0-32.0 [facility] Comment on above: Performed By: #### L 100.0100, L500.4050, L503.0105, L500.4100, L506.1000 #### [facility] [address] [place], [address] Creatinine [Mass/Vol] 0.84 mg/dL Normal 0.55-1.02 [facility] Comment on above: Result Comment: The validity of the calculated GFR GFRAA in patients over 70 years has not been determined. Clinical correlation is essential. Performed By: #### L 100.0100, L500.4050, L503.0105, L500.4100, L506.1000 #### [facility] [address] [place], [address] EST GFR - AA 85 mL/min Normal >60 [facility] Comment on above: Result Comment: Afri can Colombian GFR Calc Performed By: #### L 100.0100, L500.4050, L503.0105, L500.4100, L506.1000 #### [facility] [address] [place], [address] GAP 6 Normal 5-15 [facility] Comment on above: Performed By: #### L 100.0100, L500.4050, L503.0105, L500.4100, L506.1000 #### [facility] [address] [place], [address] GFR/1.73 sq M.predicted among non-blacks MDRD (S/P/Bld) [Vol rate/Area] 70 mL/min/{1.73_m2} Normal >60 [facility] Comment on above: Result Comment: Non- GFR Calc Performed By: #### L 100.0100, L500.4050, L503.0105, L500.4100, L506.1000 #### [facility] [address] [place], [address] Globulin (S) [Mass/Vol] 3.2 g/dL Normal 2.2-4.2 [facility] Comment on above: Performed By: #### L 100.0100, L500.4050, L503.0105, L500.4100, L506.1000 #### [facility] [address] [place], [address] Glucose [Mass/Vol] 128 mg/dL High 74-106 [facility] Comment on above: Result Comment: Fast ing Glucose result greater than or equal to 126 mg/dL suggests DIABETES MELLITUS per A.D.A. criteria. Performed By: #### L 100.0100, L500.4050, L503.0105, L500.4100, L506.1000 #### [facility] [address] [place], [address] Potassium [Moles/Vol] 3.3 mmol/L Low 3.5-5.1 [facility] Comment on above: Performed By: #### L 100.0100, L500.4050, L503.0105, L500.4100, L506.1000 #### [facility] [address] [place], [address] Sodium [Moles/Vol] 140 mmol/L Normal 136-145 [facility] Comment on above: Performed By: #### L 100.0100, L500.4050, L503.0105, L500.4100, L506.1000 #### [facility] [address] [place], [address] T PROT 7.4 g/dL Normal 6.4-8.2 [facility] Comment on above: Performed By: #### L 100.0100, L500.4050, L503.0105, L500.4100, L506.1000 #### [facility] [address] [place], [address] Urea nitrogen [Mass/Vol] 13 mg/dL Normal 7-18 [facility] Comment on above: Performed By: #### L 100.0100, L500.4050, L503.0105, L500.4100, L506.1000 #### [facility] [address] [place], [address] Lipid Profileon 09-18-2024 Cholesterol [Mass/Vol] 224 mg/dL High 200 [facility] Comment on above: Result Comment: <200 mg/dL Desirable 200-240 mg/dL Borderline >240 mg/dL High Risk Performed By: #### L 100.0100, L500.4050, L503.0105, L500.4100, L506.1000 #### [facility] [address] [place], [address] Cholesterol in HDL [Mass/Vol] 69 mg/dL Normal [facility] Comment on above: Result Comment: The drugs N-Acetylcysteine and Metamizole may falsely depress this assay. Reference Range HDL <40 mg/dL Low HDL Cholesterol HDL >or= 60 mg/dL High HDL Cholesterol Performed By: #### L 100.0100, L500.4050, L503.0105, L500.4100, L506.1000 #### [facility] [address] [place], [address] Cholesterol in LDL [Mass/Vol] 122 mg/dL Normal 0-130 [facility] Comment on above: Performed By: #### L 100.0100, L500.4050, L503.0105, L500.4100, L506.1000 #### [facility] [address] [place], [address] Cholesterol in VLDL [Mass/Vol] 33 mg/dL Normal 5-40 [facility] Comment on above: Performed By: #### L 100.0100, L500.4050, L503.0105, L500.4100, L506.1000 #### [facility] [address] [place], [address] Triglyceride [Mass/Vol] 167 mg/dL Normal [facility] Comment on above: Result Comment: The drugs N-Acetylcysteine and Metamizole may falsely depress this assay. Serum Triglycerides Reference Interval Normal <150 mg/dL Borderline high 150 - 199 mg/dL High 200 - 499 mg/dL Very High > or = 500 mg/dL Performed By: #### L 100.0100, L500.4050, L503.0105, L500.4100, L506.1000 #### [facility] [address] [place], [address] Vitamin B12on 09-18-2024 Cobalamin (Vitamin B12) [Mass/Vol] pg/mL High 211-911 [facility] Comment on above: Performed By: #### L 100.0100, L500.4050, L503.0105, L500.4100, L506.1000 #### [facility] [address] [place], [address] Vitamin D,25 Hydroxyon 09-18 Vitamin D 25-OH 9.2 ng/mL Normal [facility] Comment on above: Result Comment: Irma min D 25(OH) Status Range Deficiency <20 ng/mL (50nmol/L) Insufficiency 20 - 30 ng/mL (50 - 75 nmol/L) Sufficiency 30 - 100 ng/mL (75 - 250 nmol/L) Toxicity >100 ng/mL (>250 nmol/L) Performed By: #### L 100.0100, L500.4050, L503.0105, L500.4100, L506.1000 #### [facility] [address] [place], [address] Breast Limited Unilateralon 03-01-2024 Breast Limited Unilateral [facility] Services [address] [place] [address] Breast Limited Unilateral MR#: [id number] Acct: [id number] Name: SHEELA TADEO Rep #: [id number] : 1945 F [id number] From: Coleman parker MD PCP: Dr. Amisha Torrez MD Status: [facility] Study: Breast Limited Unilateral Date of Exam: Exam# [id number] Ordering Dr: April Koroma MD [id number] STUDY: ULTRASOUND BREAST - LEFT REASON FOR EXAM: Female, 78 years old. Short-term follow-up of left breast nodule. TECHNIQUE: Axial and longitudinal images of the LEFT breast were performed with a high resolution ultrasound transducer. # OF IMAGES: 11 COMPARISON: Comparison is made with prior sonogram dated October 19, 2023. FINDINGS: LEFT Breast: Stable 1.6 cm x 1.6 cm x 0.6 cm well-defined hypoechoic nodule at the 6:00 position of the breast at 2 cm from the nipple. This is unchanged. 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 US/Breast Limited Unilateral IMPRESSION: Stable examination. ASSESSMENT CATEGORY: BIRADS Category 2: Benign. A letter regarding these results will be sent to the patient by the facility within 30 days. Electronically Signed: Coleman Deshpande MD at 14:27 EDT , CC: Dr. Amisha Torrez MD; Dr. 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 April Koroma MD Specimen: [id number] Received: 10/26/23 Status: SHANE De La Rosa Num: [id number] Spec Type: BREAST BX Subm Dr: Dr. April Koroma MD HEADER OPERATION: Left breast mass biopsy PRE-OP DIAGNOSIS: Likely fibroadenoma TISSUE SUBMITTED: Left breast mass tissue 6 o'clock, 1.0 cm from nipple MICROSCOPIC DIAGNOSIS Left breast mass tissue, 6 o'clock, 1 cm from the nipple, core biopsy: Fragments of benign breast tissue with focal dense fibrosis. Lobular involution. Negative for atypia or malignancy. See comment. SJ:laura 10/27/2023 COMMENT Correlation with clinical, radiologic findings and appropriate follow up are necessary. MICROSCOPIC DESCRIPTION Slides are reviewed. GROSS DESCRIPTION Received in fixative is one container labeled with the patient's name and designated left breast mass 6 o'clock. The specimen consists of multiple elongated fragments of osborne-yellow fibroadipose tissue that in aggregate measure 1.0 x 0.2 x 0.1 cm. The entire specimen is submitted in one cassette. / SJ:laura 10/26/2023 TC:5 Ischemic Time: 1 minute Fixation Time: 30.5 hours CPT: 19251 Patient Age/Sex Location Account Attending Physician SHEELA TADEO 77/F LABSPEC [id number] Dr. April Koroma MD Signed (signature on file) Dr. Alfa Hyman MD 10/27/23 1442 Normal [facility] Comment on above: Performed By: #### P MEG #### [facility] [place], [address] Surgery Visit Reporton 10-25 Surgery Visit Report [facility] [address] [place] [address] OFFICE VISIT Date of Service: 10/25/23 MR#: [id number] Acct: [id number] Name: SHEELA TADEO Rep #: [id number] 12 : 1945 Provider: Dr. April wang MD Age/Sex: 77/F Location: [facility] Status: Signed Intake Vital Signs 03/12/23 08:28 10/25/23 12:45 Height 5 ft 4 in BP 147/94 H Blood Pressure Location Rt brachial Position Sitting Respiration 17 Pulse 82 Pulse Source Monitor Pulse Oximetry (%) 98 Oxygen Delivery Method room air Intake Visit Reasons: BIRADS 4 Chief Complaint: birads 4 Is patient in pain?: No Allergies No Known Allergies Allergy (Verified 10/25/23 12:46) Medications lisinopril 10 mg tablet 10 mg PO DAILY #30 tabs 02/25/19 [Rx Confirmed 10/25/23] aspirin 81 mg tablet,delayed release 81 mg PO DAILY heart health 07/20/22 [History Confirmed 10/25/23] alendronate 35 mg tablet 35 mg PO DAILY 03/11/23 [History Confirmed 10/25/23] atorvastatin 80 mg tablet 80 mg PO QHS 03/11/23 [History Confirmed 10/25/23] mirtazapine 30 mg tablet 30 mg PO QHS 03/11/23 [History Confirmed 10/25/23] calcium carbonate 500 mg calcium (1,250 mg) chewable tablet (Calcium 500) 500 mg PO DAILY 10/25/23 [History Confirmed 10/25/23] [facility] Medical History HTN (hypertension) Macular degeneration Smoker TIA (transient ischemic attack) Surgical History History of cataract surgery Family History (Updated 10/25/23 @ 12:44 by Char Mcghee) Mother Diabetes Father CVA (cerebral vascular accident) Social History household members: other details: Lives alone Smoking Status: Unknown if ever smoked Tobacco: How many years used: 20 alcohol intake: never substance use type: does not use HPI HPI HPI: 77-year-old female presents due to abnormal mammogram and ultrasound left breast. Patient has previously had this lesion called in 2019 on mammogram stating it was stable. Ultrasound was done which given a BI-RADS 4 results below. Patient does not feel any mass on exam denies any breast pain or trauma to her breast. Age of menses 14, age at time of of first child 23, no family history of breast cancer, no previous breast biopsies. FINDINGS: LEFT Breast: The inferior medial aspect of the left breast was examined with ultrasound. The mammographic abnormality corresponds to a 1.6 cm x 1.6 cm x 0.4 cm at the 6:00 position of the breast at 2 cm from the nipple. 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 Biopsy recommended. US/Breast Limited Unilateral IMPRESSION: The mammographic abnormality corresponds to a 1.6 cm x 1.6 cm x 0.4 cm well-defined hypoechoic nodule at the 6:00 position of the breast at 2 cm from the nipple. Biopsy recommended. ASSESSMENT CATEGORY: BIRADS Category 4: Suspicious - Biopsy Should Be Considered. A letter regarding these results will be sent to the patient by the facility within 30 days. ROS General General: No weight change, appetite, fatigue, colon cancer, breast cancer or weakness HEENT HEENT: No difficulty swallowing, eye injury, eye surgery, swollen glands or hoarseness Endo Endocrine: No thyroid disease, diabetes mellitus, thyroid cancer, Hair loss, heat intolerance or cold intolerance Skin Skin: No rash or changing moles Breast Breast: Yes abnormal mammogram and abnormal US; No left breast lump, right breast lump, nipple discharge, breast pain or breast enlargement Musc Musculoskeletal: No back problems, arthritis, rheumatoid arthritis, gout or joint pain Cardio Cardiovascular: Yes high blood pressure; No murmur, pacemaker, heart disease, atrial fibrillation, heart attack, heart stent, palpitations, shortness of breat with exertion or chest pain Psych Psychiatric: No depression, anxiety or hearing voices Resp Respiratory: No shortness of breath, No sleep apnea, No cough, No COPD, No asthma, No emphysema and No wheezing Gastro Gastrointestinal: No abdominal pain, No nausea or vomiting, No diarrhea, No constipation, No blood in stool, No acid reflux, No hemorrhoids, No ulcers, No gallbladder problem and No black,tarry stools Oscar Hematologic: No blood thinners, No blood disorders, No bleeding, No anemia and No blood clots Neuro Neurologic: No system reviewed and no additional complaints, except as documented, No as per HPI, No abnormal gait, No abnormal hearing, No abnormal movements, No abnormal speech, No behavioral changes, No burning sensations, No confusion, No convulsions, No diseq (more content not included)... Normal [facility] Absolute lymphocyte countOrd ered By: Amisha Torrez on 08-14-2023 Lymphocytes Auto (Unsp spec) [#/Vol] 2.15 10*3/uL 0.83-4.51 [facility] Basophil percentageOrdered B y: Amisha Torrez on 08-14-2023 Basophils/100 WBC (Bld) 0.8 % 0-1 [facility] Bilirubin [Mass/Vol] 0.30 mg/dL 0.20-1.00 [facility] Comment on above: For patients on eltr ombopag therapy, use of Dimension [place] TBIL is not recommended. Chloride [Moles/Vol] 108 mmol/L 98-107 [facility] Cholesterol [Mass/Vol] 152 mg/dL <200 [facility] Comment on above: <200 mg/dL Desirable 200-240 mg/dL Borderline >240 mg/dL High Risk Eosinophils/100 WBC (Bld) 3.2 % 0-5 [facility] Glucose [Mass/Vol] 98 mg/dL 74-106 [facility] Neutrophils (Bld) [#/Vol] 3.2 10*3/uL 2.0-7.7 [facility] Neutrophils/100 WBC (Bld) 52.4 % 47-70 [facility] Potassium [Moles/Vol] 3.6 mmol/L 3.5-5.1 [facility] Protein [Mass/Vol] 7.1 g/dL 6.4-8.2 [facility] Sodium [Moles/Vol] 142 mmol/L 136-145 [facility] Triglyceride [Mass/Vol] 115 mg/dL <199 [facility] Comment on above: The drugs N-Acetylcy steine and Metamizole may falsely depress this assay.Serum Triglycerides Reference Interval Normal <150 mg/dL Borderline high 150 - 199 mg/dL High 200 - 499 mg/dL Very High > or = 500 mg/dL WBC (Bld) [#/Vol] 6.2 10*3/uL 4.4-11.0 [facility] Blood erythrocytes count (nu mber/volume)Ordered By: Amisha Torrez on 08-14-2023 RBC (Bld) [#/Vol] 5.35 10*6/uL 4.2-5.[address] [facility] Blood hemoglobin measurement (mass/volume)Ordered By: Amisha Torrez on 08-14-2023 Hemoglobin (Bld) [Mass/Vol] 16.2 g/dL 12.0-15.0 [facility] Blood lymphocytes/100 leukoc ytesOrdered By: Amisha Torrez on 08-14-2023 Lymphocytes/100 WBC (Bld) 34.8 % 19-41 [facility] Blood monocytes/100 leukocyt esOrdered By: Amisha Torrez on 08-14-2023 Monocytes/100 WBC (Bld) 8.3 % 0-10 [facility] Blood platelet mean volumeOr dered By: Amisha Torrez on 08-14-2023 Platelet mean volume (Bld) [Entitic vol] 9.6 fL 6.2-12.0 [facility] Determination of erythrocyte mean corpuscular volume (MCV)Ordered By: Amisha Torrez on 08-14-2023 MCV (RBC) [Entitic vol] 99.3 fL 81-99 [facility] Hematocrit Auto (Bld) [Volum e fraction]Ordered By: Amisha Torrez on 08-14-2023 Hematocrit (Bld) [Volume fraction] 53.1 % 37-47 [facility] - Chemistry and C hemistry - challengeOrdered By: Amisha Torrez on 08-14-2023 ALP [Catalytic activity/Vol] 133 U/L 45-117 [facility] ALT [Catalytic activity/Vol] 23 U/L 13-56 [facility] CO2 [Moles/Vol] 26.0 mmol/L 21.0-32.0 [facility] Cobalamin (Vitamin B12) [Mass/Vol] 248 pg/mL 211-911 [facility] Globulin (S) [Mass/Vol] 3.2 g/dL 2.2-4.2 [facility] Urea nitrogen/Creatinine [Mass ratio] 17.7 mg/mg 10-20 [facility] - Hematology and Cell countsOrdered By: Amisha Torrez on 08-14-2023 Erythrocyte distribution width (RBC) [Entitic vol] 50.4 fL 35.1-43.9 [facility] Erythrocyte distribution width (RBC) [Ratio] 13.7 % 11.6-14.6 [facility] Immature granulocytes/100 WBC (Bld) 0.500 % 0.0-0.9 [facility] Comment on above: IG% - Immature Granu locytes (promyelocytes, myelocytes and metamyelocytes) > 1% indicates that a LEFT SHIFT is Present. MCH (RBC) [Entitic mass] 30.3 pg 27.0-32.0 [facility] Nucleated RBC/100 WBC (Bld) [Ratio] 0 % 0-5 [facility] MCHC Auto (RBC) [Mass/Vol]Or dered By: Amisha Torrez on 08-14-2023 MCHC (RBC) [Mass/Vol] 30.5 g/dL 32-36 [facility] No Panel InformationOrdered By: Amisha Torrez on 08-14-2023 Estimated GFR (MDRD) Amer 78 mL/min >60 [facility] Comment on above: GFR Calc Estimated GFR (MDRD) Non-Af Amer 64 mL/min >60 [facility] Comment on above: Non- GFR Calc Vitamin D 25-Hydroxy 16.3 ng/mL [facility] Comment on above: Vitamin D 25(OH) Sta tus Range Deficiency <20 ng/mL (50nmol/L) Insufficiency 20 - 30 ng/mL (50 - 75 nmol/L) Sufficiency 30 - 100 ng/mL (75 - 250 nmol/L) Toxicity >100 ng/mL (>250 nmol/L) Platelets bldOrdered By: Jono Torrez on 08-14-2023 Platelets (Bld) [#/Vol] 253 10*3/uL 150-450 [facility] Serum or plasma albumin guillermo urement (mass/volume)Ordered By: Amisha Torrez on 08-14-2023 Albumin [Mass/Vol] 3.9 g/dL 3.2-5.0 [facility] Serum or plasma albumin/glob ulin mass ratioOrdered By: Amisha Torrez on 08-14-2023 Albumin/Globulin [Mass ratio] 1.2 {ratio} 0.9-2.4 [facility] Serum or plasma calcium guillermo urement (mass/volume)Ordered By: Amisha Torrez on 08-14-2023 Calcium [Mass/Vol] 9.5 mg/dL 8.5-10.1 [facility] Serum or plasma cholesterol in HDL measurement (mass/volume)Ordered By: Amisha Torrez on 08-14-2023 Cholesterol in HDL [Mass/Vol] 87 mg/dL >40 [facility] Comment on above: The drugs N-Acetylcy steine and Metamizole may falsely depress this assay. Reference Range HDL <40 mg/dL Low HDL Cholesterol HDL >or= 60 mg/dL High HDL Cholesterol Serum or plasma cholesterol in VLDL measurement (mass/volume)Ordered By: Amisha Torrez on 08-14-2023 Cholesterol in VLDL [Mass/Vol] 23 mg/dL 5-40 [facility] Serum or plasma creatinine m easurement (mass/volume)Ordered By: Amisha Torrez on 08-14-2023 Creatinine [Mass/Vol] 0.90 mg/dL 0.55-1.02 [facility] Comment on above: The validity of the calculated GFR & GFRAA in patients over 70 years has not been determined. Clinical correlation is essential. Serum or plasma low density lipoprotein (LDL) cholesterol measurement (mass/volume)Ordered By: Amisha Torrez on 08-14-2023 Cholesterol in LDL [Mass/Vol] 42 mg/dL 0-130 [facility] Serum or plasma urea nitroge n measurement (mass/volume)Ordered By: Amisha Torrez on 08-14-2023 Urea nitrogen [Mass/Vol] 16 mg/dL 7-18 [facility] Thin prep Papanicolaou smear with manual screeningOrdered By: Amisha Torrez on 08-14-2023 Thin prep Papanicolaou smear with manual screening 21 U/L 15-37 [facility] Thin prep Papanicolaou smear with manual screening 8 5-15 [facility] CNOVon 07-20-2023 CNOV Office Visit ([facility]8) SHEELA TADEO ([id number]) 1945 F Date Time Provider Department 07/20/23 1:00 PM LA [facility]BERRY [facility]8 During your visit today, we recorded the following information about you: Pulse Blood pressure Weight Height 70/minute 149/67 44.9 kg 1.613 m La Newberry MD 08/14/2023 8:21 PM Signed [facility] Initial Visit Consultation is requested by: Consultation requested by Dr. Obando for an opinion regarding white matter disease. My final recommendations will be communicated back to the requesting physician by way of shared medical record or letter via US mail PCP: Alonso Obando [address] [place] [address] CEREBROVASCULAR HISTORY Sheela Tadeo is a 77 year old female. Reason for Visit: cognitive dysfunction - White matter disease Date of Last Event: 02/18/2023 (estimated date) History of Event: 77 year old female hx of migraine, adjustment disorder who presents to cerebrovascular clinic for assessment of white matter changes on MRI and hx of recurrent TIA. 02/24/2019: - They described episodes of slurred speech, difficulty getting her words out. These only occurred a few times. MRI brain that showed tiny acute stroke in the left parietal white matter and severe white matter disease. Found to have HTN and HLD, was smoking at that time. D/c'ed with medications but was non-adherent. In 07/2022, she began to have recurrent episodes of slurred speech, confusion, and difficulty getting words out. This occurred just once. Unclear if happened again as lives alone. Repeat MRI showed again severe wm changes, she saw stroke as an outpatient who referred to vasculopathy clinic for additional evaluation. She has a hx of migraines, has one about every 3-4 weeks. She takes ASA for these which seems to help. Antiplatelets/Antico agulants: Aspirin Statins: Atorvastatin Side effects: No Refills needed: No Residual Deficits: No residual deficits Current PT/OT/ST: No therapy needs Initial Discharge Disposition: Home Current Living Situation: Home alone Current use of a mobility aid for walking/getting around: None Do you have any planned upcoming surgeries or dental procedures? No RAD COGNITIVE ASSESSMENT (MOCA) Visuospatial/Executi ve: - Letter/Number Mappin/1 - Copy Cube: 0 - Draw Clock (Ten Past Eleven): - Clock Contour 11/06 - Clock Numbers - Clock Hands 11/06 Naming: - Lion 11/06 - Rhino 11/06 - Camel 11/06 Memory: Read list of words and subject must repeat them. Do 2 trials even if 1st trial is successful. There is no scoring for this part of the assessment. - Face, Velvet, Zoroastrianism, Marlen, Red Attention: - Repeat in forward order 2, 1, 8, 5, 4 11/06 - Repeat in backward order 7, 4, 2 11/06 - Read list, subject to tap for A's (zero for >/= to 2 errors) - F B A C M N A A J K L B A F A K D E A A A J A M O F A A B 11/06 - Serial Sevens, 93, 86, 79, 72, 65 - 4-5 correct=3points 2-3 correct=2 points 1 correct = 1 point 3/3 Language: - Repeat: I only know that Rogelio is the one to help today 11/06 - Repeat: The cat always hid under the couch when the dogs were in the Room 11/06 - Number of words that begin with F. (1 point for >/= to 11 words) 11/06 Abstraction: - Similarity between train and bicycle 11/06 - Similarity between watch and ruler 11/06 Delayed Recall - Words - Face 11/06 - Velvet 11/06 - Zoroastrianism - Marlen - Red 11/06 Orientation - Date - Month 11/06 - Year 11/06 - Day 11/06 - Place 11/06 - City 11/06 Total Points Scored 25/30 Normal is 26 points or greater. * www.mocatest.org PAST MEDICAL HISTORY Diagnosis Date Abdominal pain, unspecified site Diverticulosis of colon (without mention of hemorrhage) Hemorrhage of gastrointestinal tract, unspecified Kidney stones Migraine without aura PAST SURGICAL HISTORY Procedure Laterality Date COLONOSCOPY FLX DX W/COLLJ SPEC WHEN PFRMD 06/05/2007 Colonoscopy XCAPSL CTRC RMVL INSJ IO LENS PROSTH W/O ECP 2006 Cataract Removal, bilat FAMILY HISTORY Problem Relation Age of Onset None Father Diabetes Mother Social History Tobacco Use Smoking status: Every Day Packs/day: 0.10 Years: 50.00 Additional pack years: 0.00 Total pack years: 5.00 Types: Cigarettes Passive exposure: Yes Smokeless tobacco: Never Tobacco comments: 10/ wk Substance Use Topics Alcohol use: Yes Comment: social MEDICATIONS Current Outpatient Medications Medication Sig albuterol HFA (PROAIR HFA) 90 mcg/actuation inhaler Inhale 2 Puffs as instructed every 6 hours as needed. Ibandronate (BONIVA) 150 mg ORAL tablet Take 1 tablet by mouth once every month. IN THE MORNING WITH A FULL GLASS OF WATER, ON AN EMPTY STOMACH, AND DO NOT TAKE ANYTHING ELSE BY MOUTH OR LIE DOWN FOR THE NEXT 30 MINUTES. sumatr (more content not included)... Normal [facility] [place] Basophil percentageOrdered B y: Dr. Naranjo on 03-12-2023 Cholesterol [Mass/Vol] 117 mg/dL <200 [facility] Comment on above: <200 mg/dL Desirable 200-240 mg/dL Borderline >240 mg/dL High Risk Triglyceride [Mass/Vol] 88 mg/dL <199 [facility] Comment on above: The drugs N-Acetylcy steine and Metamizole may falsely depress this assay.Serum Triglycerides Reference Interval Normal <150 mg/dL Borderline high 150 - 199 mg/dL High 200 - 499 mg/dL Very High > or = 500 mg/dL Serum or plasma cholesterol in HDL measurement (mass/volume)Ordered By: Dr. Naranjo on 03-12-2023 Cholesterol in HDL [Mass/Vol] 67 mg/dL >40 [facility] Comment on above: The drugs N-Acetylcy steine and Metamizole may falsely depress this assay. Reference Range HDL <40 mg/dL Low HDL Cholesterol HDL >or= 60 mg/dL High HDL Cholesterol Serum or plasma cholesterol in VLDL measurement (mass/volume)Ordered By: Dr. Naranjo on 03-12-2023 Cholesterol in VLDL [Mass/Vol] 18 mg/dL 5-40 [facility] Serum or plasma low density lipoprotein (LDL) cholesterol measurement (mass/volume)Ordered By: Dr. Naranjo on 03-12-2023 Cholesterol in LDL [Mass/Vol] 32 mg/dL 0-130 [facility] Absolute lymphocyte countOrd ered By: Dr. Azevedo on 03-11-2023 Lymphocytes Auto (Unsp spec) [#/Vol] 1.95 10*3/uL 0.83-4.51 [facility] Basophil percentageOrdered B y: Dr. Naranjo on 03-11-2023 Basophil percentage 0-5 SEEN /hpf 0-5 [facility] Basophil percentageOrdered B y: Dr. Azevedo on 03-11-2023 Basophils/100 WBC (Bld) 0.7 % 0-1 [facility] Chloride [Moles/Vol] 106 mmol/L 98-107 [facility] Eosinophils/100 WBC (Bld) 1.6 % 0-5 [facility] Glucose [Mass/Vol] 116 mg/dL 74-106 [facility] Comment on above: Fasting Glucose resu lt from 100 to 125 mg/dL suggests IMPAIRED HOMEOSTASIS per A.D.A. criteria. Neutrophils (Bld) [#/Vol] 4.3 10*3/uL 2.0-7.7 [facility] Neutrophils/100 WBC (Bld) 61.7 % 47-70 [facility] Potassium [Moles/Vol] 3.9 mmol/L 3.5-5.1 [facility] Sodium [Moles/Vol] 141 mmol/L 136-145 [facility] WBC (Bld) [#/Vol] 7.0 10*3/uL 4.4-11.0 [facility] Bilirubin Test strip Ql (U)O rdered By: Dr. Naranjo on 03-11-2023 Bilirubin Ql (U) Negative Negative [facility] Blood erythrocytes count (nu mber/volume)Ordered By: Dr. Azevedo on 03-11-2023 RBC (Bld) [#/Vol] 4.85 10*6/uL 4.2-5.[address] [facility] Blood hemoglobin measurement (mass/volume)Ordered By: Dr. Azevedo on 03-11-2023 Hemoglobin (Bld) [Mass/Vol] 15.6 g/dL 12.0-15.0 [facility] Blood lymphocytes/100 leukoc ytesOrdered By: Dr. Azevedo on 03-11-2023 Lymphocytes/100 WBC (Bld) 27.8 % 19-41 [facility] Blood monocytes/100 leukocyt esOrdered By: Dr. Azevedo on 03-11-2023 Monocytes/100 WBC (Bld) 8.1 % 0-10 [facility] Blood platelet mean volumeOr dered By: Dr. Azevedo on 03-11-2023 Platelet mean volume (Bld) [Entitic vol] 8.9 fL 6.2-12.0 [facility] Determination of erythrocyte mean corpuscular volume (MCV)Ordered By: Dr. Azevedo on 03-11-2023 MCV (RBC) [Entitic vol] 97.9 fL 81-99 [facility] Glucose Glucometer (BldC) [M ass/Vol]Ordered By: Dr. Azevedo on 03-11-2023 Glucose [Mass/Vol] 110 mg/dL 74-106 [facility] Comment on above: MANAGEMENT OF PATIEN T CARE PER NURSING PROTOCOL Hematocrit Auto (Bld) [Volum e fraction]Ordered By: Dr. Azevedo on 03-11-2023 Hematocrit (Bld) [Volume fraction] 47.5 % 37-47 [facility] INR in Blood by Coagulation assayOrdered By: Dr. Azevedo on 05-06-2023 INR Coag (Bld) [Relative time] 0.9 {INR} [facility] Ketones Test strip Ql (U)Ord ered By: Dr. Naranjo on 03-11-2023 Ketones Ql (U) Negative Negative [facility] - Chemistry and C hemistry - challengeOrdered By: Dr. Azevedo on 03-11-2023 CO2 [Moles/Vol] 27.0 mmol/L 21.0-32.0 [facility] Urea nitrogen/Creatinine [Mass ratio] 18.8 mg/mg 10-20 [facility] - CoagulationOrde red By: Dr. Azevedo on 03-11-2023 aPTT Coag (Bld) [Time] 26.6 s 24.1-36.2 [facility] PT Coag (PPP) [Time] 12.0 s 11.7-14.9 [facility] - Hematology and Cell countsOrdered By: Dr. Azevedo on 03-11-2023 Erythrocyte distribution width (RBC) [Entitic vol] 47.3 fL 35.1-43.9 [facility] Erythrocyte distribution width (RBC) [Ratio] 13.2 % 11.6-14.6 [facility] Immature granulocytes/100 WBC (Bld) 0.100 % 0.0-0.9 [facility] Comment on above: IG% - Immature Granu locytes (promyelocytes, myelocytes and metamyelocytes) > 1% indicates that a LEFT SHIFT is Present. MCH (RBC) [Entitic mass] 32.2 pg 27.0-32.0 [facility] Nucleated RBC/100 WBC (Bld) [Ratio] 0 % 0-5 [facility] MCHC Auto (RBC) [Mass/Vol]Or dered By: Dr. Azevedo on 03-11-2023 MCHC (RBC) [Mass/Vol] 32.8 g/dL 32-36 [facility] Mucus LM Ql (Urine sed)Order ed By: Dr. Naranjo on 03-11-2023 Mucus Ql (Urine sed) 0 SEEN /hpf [facility] Nitrite Test strip Ql (U)Ord ered By: Dr. Naranjo on 03-11-2023 Nitrite Ql (U) Negative Negative [facility] No Panel InformationOrdered By: Dr. Naranjo on 03-11-2023 Troponin I High Sensitivity 29 pg/mL 3.0-54.0 [facility] Comment on above: Please Note: New Erika t Units and Gender Specific Reference Ranges. For more information see Policy Stat Procedure [place] High Sensitivity Troponin (TNIH) and attachments. No Panel InformationOrdered By: Dr. Azevedo on 03-11-2023 Estimated Creatinine Clearance Calc 31.48 ml/min [facility] Estimated GFR (MDRD) Amer 61 mL/min >60 [facility] Comment on above: GFR Calc Estimated GFR (MDRD) Non-Af Amer 50 mL/min >60 [facility] Comment on above: Non- GFR Calc Troponin I High Sensitivity 32 pg/mL 3.0-54.0 [facility] Comment on above: Please Note: New Erika t Units and Gender Specific Reference Ranges. For more information see Policy Stat Procedure [place] High Sensitivity Troponin (TNIH) and attachments. Platelets bldOrdered By: Dr. Azevedo on 03-11-2023 Platelets (Bld) [#/Vol] 267 10*3/uL 150-450 [facility] Protein Test strip Ql (U)Ord ered By: Dr. Naranjo on 03-11-2023 Protein Ql (U) 15 mg/dl Negative [facility] Serum or plasma calcium guillermo urement (mass/volume)Ordered By: Dr. Azevedo on 03-11-2023 Calcium [Mass/Vol] 10.6 mg/dL 8.5-10.1 [facility] Serum or plasma creatinine m easurement (mass/volume)Ordered By: Dr. Azevedo on 03-11-2023 Creatinine [Mass/Vol] 1.12 mg/dL 0.55-1.02 [facility] Comment on above: The validity of the calculated GFR & GFRAA in patients over 70 years has not been determined. Clinical correlation is essential. Serum or plasma urea nitroge n measurement (mass/volume)Ordered By: Dr. Azevedo on 03-11-2023 Urea nitrogen [Mass/Vol] 21 mg/dL 7-18 [facility] Squamous epithelial cells de tection in urine sediment by light microscopyOrdered By: Dr. Naranjo on 03-11-2023 Epithelial cells.squamous LM Ql (Urine sed) 0 SEEN /hpf 5-10 [facility] Thin prep Papanicolaou smear with manual screeningOrdered By: Dr. Azevedo on 03-11-2023 Thin prep Papanicolaou smear with manual screening 8 5-15 [facility] Urine blood detectionOrdered By: Dr. Naranjo on 03-11-2023 RBC Ql (U) 10 /ul Negative [facility] RBC Ql (U) 0-5 SEEN /hpf 0-5 [facility] Urine clarityOrdered By: Dr. Naranjo on 03-11-2023 Clarity (U) Clear Clear [facility] Urine color determinationOrd ered By: Dr. Naranjo on 03-11-2023 Color (U) Yellow Yellow [facility] Urine glucose detectionOrder ed By: Dr. Naranjo on 03-11-2023 Glucose Ql (U) Normal mg/dl Normal [facility] Urine leukocyte esterase det ection by dipstickOrdered By: Dr. Naranjo on 03-11-2023 Leukocyte esterase Test strip Ql (U) 25 /ul Negative [facility] Urine pHOrdered By: Dr. Tabitha urbano on 03-11-2023 pH (U) 6.5 [pH] 5.0 - 8.0 [facility] Urine sediment bacteria coun t by microscopy (number/high power field)Ordered By: Dr. Naranjo on 03-11-2023 Bacteria LM.HPF (Urine sed) [#/Area] 0 /[HPF] None Seen [facility] Urine specific gravity measu rementOrdered By: Dr. Naranjo on 03-11-2023 Specific gravity (U) [Rel density] 1.015 1.002-1.030 [facility] Urobilinogen Auto test strip Ql (U)Ordered By: Dr. 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 - Ibandronate (BONIVA) 150 mg ORAL tablet Take 1 tablet by mouth once every month. IN THE MORNING WITH A FULL GLASS OF WATER, ON AN EMPTY STOMACH, AND DO NOT TAKE ANYTHING ELSE BY MOUTH OR LIE DOWN FOR THE NEXT 30 MINUTES. - sumatriptan (IMITREX) 50 mg ORAL tablet Take 1 tablet by mouth as needed. - sertraline (ZOLOFT) 100 mg ORAL tablet Take one(1) tablet daily. - THERAPEUTIC MULTIVITAMIN TAB Take one(1) tablet daily. - calcium carbonate/vitamin d3(CALCIUM 600 + D 600 MG-125 UNIT TAB) Take one(1) tablet twice daily. Letter Dani Multani [facility] Brigitte 02-17-2023 CNPN Telephone (NECVS8) CARLYLESHEELA ([id number]) 1945 F Date Time Provider Department 02/17/23 [place] NECVS8 During your visit today, we recorded the following information about you: Neelam Hinojosa 02/21/2023 8:42 AM Addendum CV PHONE Name of caller : Michelle Relationship to patient : Daughter If not self Will need patient permission to release results or disclose health information with called documented in . Patient identified by Name and Date of . ( Sheela A Carlyle, 1945). Yes Number to return call [phone] Reason for Call: [facility] is calling to assist patient with Sooner appointment with Dr. Newberry. He states patient is being referred to Dr. Newberry by Dr. Chiquis Haider. 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 Patient has complex vascular issue. Patient currently schedule 05/15. Please advise whether patient can be scheduled in a new slot for possible sooner appointment. Please review and advise Neelam Jeronimo. Thanks. Thank you calling [facility] [place]. You will receive a return call within 48 hours ( or 2 business days if close to the weekend). If you feel that this is an urgent issue and needs immediate attention, it is recommended that you contact your primary care provider office or proceed to your nearest Urgent Care Center of Emergency Room ED for evaluation/treatment . Neelam Hinojosa 02/21/2023 8:42 AM Signed Called patient and left VM to reschedule sooner in [place] Slot. Okay per Tamera. Allergies As of Date: 02/17/2023 (No Known Allergies) Date Reviewed: 01/25/2023 Reviewed by: Herlinda Salmon MA - Fully Assessed Reason for Visit: Appointment [186] Cmt: Sooner appointment. Prescriptions as of 04/05/2023 - albuterol HFA (PROAIR HFA) 90 mcg/actuation inhaler Inhale 2 Puffs as instructed every 6 hours as needed. - Ibandronate (BONIVA) 150 mg ORAL tablet Take 1 tablet by mouth once every month. IN THE MORNING WITH A FULL GLASS OF WATER, ON AN EMPTY STOMACH, AND DO NOT TAKE ANYTHING ELSE BY MOUTH OR LIE DOWN FOR THE NEXT 30 MINUTES. - sumatriptan (IMITREX) 50 mg ORAL tablet Take 1 tablet by mouth as needed. - sertraline (ZOLOFT) 100 mg ORAL tablet Take one(1) tablet daily. - THERAPEUTIC MULTIVITAMIN TAB Take one(1) tablet daily. - calcium carbonate/vitamin d3(CALCIUM 600 + D 600 MG-125 UNIT TAB) Take one(1) tablet twice daily. Problem List As Of Date 02/17/2023 Noted Resolved ADJUSTMENT DISORDER WITH DEPRESSED MOOD [F43.21]10/20/2008 Calculus of Ureter [N20.1] 10/28/2009 Renal Colic [N23] 10/28/2009 Hydronephrosis [N13.30] 10/28/2009 Migraine [G43.909] 10/15/2010 Osteoporosis, post-menopausal [M81.0] 10/26/2010 Encounter Status:Closed by NEELAM HINOJOSA on 04/05/23 [facility] CNTHERAPYon 02-15-2023 CNTHERAPY OT/PT/Speech Visit (AKOTLK) SHEELA TADEO ([id number]) 1945 F Date Time Provider Department 02/15/23 10:00 AM KEN GABRIEL Date Time Provider Department [place] 02/15/2023 10:00 AM [id number] GABRIEL Reason for Visit: OT EVAL [748] Primary Visit Diagnosis: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 - Ibandronate (BONIVA) 150 mg ORAL tablet Take 1 tablet by mouth once every month. IN THE MORNING WITH A FULL GLASS OF WATER, ON AN EMPTY STOMACH, AND DO NOT TAKE ANYTHING ELSE BY MOUTH OR LIE DOWN FOR THE NEXT 30 MINUTES. - sumatriptan (IMITREX) 50 mg ORAL tablet Take 1 tablet by mouth as needed. - sertraline (ZOLOFT) 100 mg ORAL tablet Take one(1) tablet daily. - THERAPEUTIC MULTIVITAMIN TAB Take one(1) tablet daily. - calcium carbonate/vitamin d3(CALCIUM 600 + D 600 MG-125 UNIT TAB) Take one(1) tablet twice daily. Normal [facility] CNOVon 01-25-2023 [facility] Office Visit (CVAKPO) SHEELA TADEO ([id number]) 1945 F Date Time Provider Department 01/25/23 10:00 AM CHIQUIS HAIDER During your visit today, we recorded the following information about you: Pulse Blood pressure Weight Height 90/minute 151/101 45.4 kg 1.626 m Chiquis Haider MD 07/07/2023 9:[facility] Consultation is requested by: SELF PCP: Alonso Obando [address] [place] [address] [place] [address] CEREBROVASCULAR HISTORY Sheela Tadeo is a 77 year old female, with known history of migraine, adjustment disorder, who was referred to the stroke clinic to assess for the history of TIA and severe white matter disease in the MRI. Around 3 years ago she a transient episode of slurred speech associated with confusion. At that, she underwent MRI brain that showed tiny acute stroke in the left parietal white matter and severe white matter disease. She was also found to have hypertension and was discharged home on Aspirin and BP medication. Unfortunately, patient been poorly compliant with both medication. She recurrence of the valdemar symptoms in the last six months; and last episode was 10 days ago. She had repeat MRI in both event which basically showed the severe white matter disease. MRA per my review was normal; and no micro-bleeds Review of system: Mild forgetfulness noted by the family but is not progreessive Stroke Event Information Do you have any planned upcoming surgeries or dental procedures? No RN completing documentation PAST MEDICAL HISTORY Diagnosis Date Abdominal pain, unspecified site Diverticulosis of colon (without mention of hemorrhage) Hemorrhage of gastrointestinal tract, unspecified Kidney stones Migraine without aura PAST SURGICAL HISTORY Procedure Laterality Date COLONOSCOPY FLX DX W/COLLJ SPEC WHEN PFRMD 06/05/2007 Colonoscopy XCAPSL CTRC RMVL INSJ IO LENS PROSTH W/O ECP 2006 Cataract Removal, bilat FAMILY HISTORY Problem Relation Age of Onset None Father Diabetes Mother Social History Tobacco Use Smoking status: Passive Smoke Exposure - Never Smoker Tobacco comments: 10/ wk Substance Use Topics Alcohol use: Yes Comment: social MEDICATIONS Current Outpatient Medications Medication Sig albuterol HFA (PROAIR HFA) 90 mcg/actuation inhaler Inhale 2 Puffs as instructed every 6 hours as needed. Ibandronate (BONIVA) 150 mg ORAL tablet Take 1 tablet by mouth once every month. IN THE MORNING WITH A FULL GLASS OF WATER, ON AN EMPTY STOMACH, AND DO NOT TAKE ANYTHING ELSE BY MOUTH OR LIE DOWN FOR THE NEXT 30 MINUTES. sumatriptan (IMITREX) 50 mg ORAL tablet Take 1 tablet by mouth as needed. sertraline (ZOLOFT) 100 mg ORAL tablet Take one(1) tablet daily. THERAPEUTIC MULTIVITAMIN TAB Take one(1) tablet daily. calcium carbonate/vitamin d3(CALCIUM 600 + D 600 MG-125 UNIT TAB) Take one(1) tablet twice daily. No current facility-administere d medications for this visit. ALLERGIES ALLERGIES No Known Allergies PHYSICAL EXAMINATION BP 151/101 (BP Site: Right Arm, BP Position: Sitting, BP Cuff Size: Regular Adult) Pulse 90 Ht 162.6 cm (5' 4) Wt 45.4 kg (100 lb) BMI 17.16 kg/m? General: Well-developed, well-nourished, in no acute distress. HEENT: Normocephalic, atraumatic. Sclerae anicteric. Oropharynx clear. Extremities: No edema, cyanosis, or clubbing. 2+ dorsalis pedis pulses bilaterally. Skin: No rash or ecchymoses. Neurological: Awake, alert, oriented to person, place, and time. Speech fluent, no dysarthria. Naming, repetition, recall, comprehension. Good attention Cranial Nerves: PERRL, extraocular movements intact without nystagmus. Visual valdovinos full. Facial sensation and movements normal and symmetric. Palate elevates equal bilaterally. Tongue midline. Trapezius strength 5/5 bilaterally. Motor: Normal bulk and tone. Strength 5/5 throughout. No pronator drift or tremor. Sensation: Intact light touch, pinprick, temperature, proprioception, and vibration. Coordination: Rapid alternating movements symmetric bilaterally. Ysbvvr-cu-lcof, [id number]-ls-[id number] without dysmetria bilaterally. Gait: Narrow-based, normal spaced and stable without assistance. Tandem gait is stable. LABS Cholesterol: No results found for: CHOL LDL Chol, [place] (mg/dL) Date Value 10/15/2010 104 No results found for: HDL No results found for: TG Diabetes: No results found for: HBA1C IMAGING MRI done in 2018, 2021 and 2022 were reviewed by: mainly severe bilateral white matter abnormal signal Patient Entered Questionnaires PROMIS/NeuroQoL Score Percentiles Percentiles provide an indication of how a patient's score ranks in relation to the [place] general population. > 31st percentile is within normal limits or better * < 31st percentile is at least ? SD (more content not included)... Normal [facility] Brigitte 01-25-2023 LUCIA Telephone (NEAGAK) SHEELA TADEO ([id number]) 1945 F Date Time Provider Department 01/25/23 CHIQUIS HAIDER During your visit today, we recorded the following information about you: Kupu Hawaiitower 01/25/2023 12:26 PM Signed Submitted through portal Consult to Occupational Therapy #[id number] to be scheduled in the [place] location AND Consult to Neurology #[id number] to be scheduled in [facility] with La Krueger [facility] 02/09/2023 4:11 PM Signed Received through portal Consult to Occupational Therapy #[id number] for Driving Evaluation has been scheduled 02/15/23 in [place] with Ken Gabriel [facility] 03/09/2023 2:08 PM Signed Received through portal Consult to Neurology #[id number], patient has been scheduled with Dr. La Newberry on 05/15/23 in [facility] Allergies As of Date: 01/25/2023 (No Known Allergies) Date Reviewed: 01/25/2023 Reviewed by: Herlinda Salmon MA - Fully Assessed Reason for Visit: Orders [681] Prescriptions as of 03/09/2023 - albuterol HFA (PROAIR HFA) 90 mcg/actuation inhaler Inhale 2 Puffs as instructed every 6 hours as needed. - Ibandronate (BONIVA) 150 mg ORAL tablet Take 1 tablet by mouth once every month. IN THE MORNING WITH A FULL GLASS OF WATER, ON AN EMPTY STOMACH, AND DO NOT TAKE ANYTHING ELSE BY MOUTH OR LIE DOWN FOR THE NEXT 30 MINUTES. - sumatriptan (IMITREX) 50 mg ORAL tablet Take 1 tablet by mouth as needed. - sertraline (ZOLOFT) 100 mg ORAL tablet Take one(1) tablet daily. - THERAPEUTIC MULTIVITAMIN TAB Take one(1) tablet daily. - calcium carbonate/vitamin d3(CALCIUM 600 + D 600 MG-125 UNIT TAB) Take one(1) tablet twice daily. Problem List As Of Date 01/25/2023 Noted Resolved ADJUSTMENT DISORDER WITH DEPRESSED MOOD [F43.21]10/20/2008 Calculus of Ureter [N20.1] 10/28/2009 Renal Colic [N23] 10/28/2009 Hydronephrosis [N13.30] 10/28/2009 Migraine [G43.909] 10/15/2010 Osteoporosis, post-menopausal [M81.0] 10/26/2010 Encounter Status:Closed by INDRA MORALES on 02/09/23 Normal [facility] Nuclear Ab IA Ql (S)on 01-25 PABLO BY EIA, QUAL Negative Normal Negative [facility] Comment on above: Order Comment: Speci men Type: BLOOD SPECIMEN Ordering Facility: [facility] Address: [address] [place] [address] Result Comment: The qualitative antinuclear antibody screen test performed using enzyme immunoassay including the following antigens: dsDNA, histones, SS-A, SS-B, Sm, Sm/INDUSTRIAL HYGIENE MANAGER, Scl-70, Heather-1, and centromeric antigens. Performed By: #### 4 [id number] #### [facility] CLIA [id number] [address] [place] [address] [place] Rheumatoid fact SerPl-aCncon 01-25-2023 Rheumatoid factor Qn [IU]/mL Normal <16 [facility] Comment on above: Order Comment: Speci men Type: BLOOD SPECIMEN Ordering Facility: [facility] Address: [address] [place] [address] Performed By: #### 1 [id number] #### [facility] CLIA [id number] [address] [place] [address] [place] Absolute lymphocyte countOrd ered By: Dr. Ruffin on 01-14-2023 Lymphocytes Auto (Unsp spec) [#/Vol] 2.28 10*3/uL 0.83-4.51 [facility] Basophil percentageOrdered B y: Dr. Ruffin on 01-14-2023 Basophils/100 WBC (Bld) 1.2 % 0-1 [facility] Chloride [Moles/Vol] 110 mmol/L 98-107 [facility] Cholesterol [Mass/Vol] 172 mg/dL <200 [facility] Comment on above: <200 mg/dL Desirable 200-240 mg/dL Borderline >240 mg/dL High Risk Eosinophils/100 WBC (Bld) 4.6 % 0-5 [facility] Glucose [Mass/Vol] 63 mg/dL 74-106 [facility] Neutrophils (Bld) [#/Vol] 2.5 10*3/uL 2.0-7.7 [facility] Neutrophils/100 WBC (Bld) 44.7 % 47-70 [facility] Potassium [Moles/Vol] 3.3 mmol/L 3.5-5.1 [facility] Sodium [Moles/Vol] 145 mmol/L 136-145 [facility] Triglyceride [Mass/Vol] 180 mg/dL <199 [facility] Comment on above: The drugs N-Acetylcy steine and Metamizole may falsely depress this assay.Serum Triglycerides Reference Interval Normal <150 mg/dL Borderline high 150 - 199 mg/dL High 200 - 499 mg/dL Very High > or = 500 mg/dL WBC (Bld) [#/Vol] 5.6 10*3/uL 4.4-11.0 [facility] Blood erythrocytes count (nu mber/volume)Ordered By: Dr. Ruffin on 01-14-2023 RBC (Bld) [#/Vol] 4.18 10*6/uL 4.2-5.[address] [facility] Blood hemoglobin measurement (mass/volume)Ordered By: Dr. Ruffin on 01-14-2023 Hemoglobin (Bld) [Mass/Vol] 13.3 g/dL 12.0-15.0 [facility] Blood lymphocytes/100 leukoc ytesOrdered By: Dr. Ruffin on 01-14-2023 Lymphocytes/100 WBC (Bld) 40.4 % 19-41 [facility] Blood monocytes/100 leukocyt esOrdered By: Dr. Ruffin on 01-14-2023 Monocytes/100 WBC (Bld) 8.7 % 0-10 [facility] Blood platelet mean volumeOr dered By: Dr. Ruffin on 01-14-2023 Platelet mean volume (Bld) [Entitic vol] 9.0 fL 6.2-12.0 [facility] Determination of erythrocyte mean corpuscular volume (MCV)Ordered By: Dr. Ruffin on 01-14-2023 MCV (RBC) [Entitic vol] 99.8 fL 81-99 [facility] Hematocrit Auto (Bld) [Volum e fraction]Ordered By: Dr. Ruffin on 01-14-2023 Hematocrit (Bld) [Volume fraction] 41.7 % 37-47 [facility] - Chemistry and C hemistry - challengeOrdered By: Dr. Ruffin on 01-14-2023 CO2 [Moles/Vol] 28.0 mmol/L 21.0-32.0 [facility] Urea nitrogen/Creatinine [Mass ratio] 27.5 mg/mg 10-20 [facility] - Hematology and Cell countsOrdered By: Dr. Ruffin on 01-14-2023 Erythrocyte distribution width (RBC) [Entitic vol] 51.5 fL 35.1-43.9 [facility] Erythrocyte distribution width (RBC) [Ratio] 14.1 % 11.6-14.6 [facility] Immature granulocytes/100 WBC (Bld) 0.400 % 0.0-0.9 [facility] Comment on above: IG% - Immature Granu locytes (promyelocytes, myelocytes and metamyelocytes) > 1% indicates that a LEFT SHIFT is Present. MCH (RBC) [Entitic mass] 31.8 pg 27.0-32.0 [facility] Nucleated RBC/100 WBC (Bld) [Ratio] 0 % 0-5 [facility] MCHC Auto (RBC) [Mass/Vol]Or dered By: Dr. Ruffin on 01-14-2023 MCHC (RBC) [Mass/Vol] 31.9 g/dL 32-36 [facility] No Panel InformationOrdered By: Dr. Ruffin on 01-14-2023 Estimated Creatinine Clearance Calc 34.55 ml/min [facility] Estimated GFR (MDRD) Amer 94 mL/min >60 [facility] Comment on above: GFR Calc Estimated GFR (MDRD) Non-Af Amer 78 mL/min >60 [facility] Comment on above: Non- GFR Calc Platelets bldOrdered By: Dr. Ruffin on 01-14-2023 Platelets (Bld) [#/Vol] 302 10*3/uL 150-450 [facility] Serum or plasma calcium guillermo urement (mass/volume)Ordered By: Dr. Ruffin on 01-14-2023 Calcium [Mass/Vol] 8.5 mg/dL 8.5-10.1 [facility] Serum or plasma cholesterol in HDL measurement (mass/volume)Ordered By: Dr. Ruffin on 01-14-2023 Cholesterol in HDL [Mass/Vol] 56 mg/dL >40 [facility] Comment on above: The drugs N-Acetylcy steine and Metamizole may falsely depress this assay. Reference Range HDL <40 mg/dL Low HDL Cholesterol HDL >or= 60 mg/dL High HDL Cholesterol Serum or plasma cholesterol in VLDL measurement (mass/volume)Ordered By: Dr. Ruffin on 01-14-2023 Cholesterol in VLDL [Mass/Vol] 36 mg/dL 5-40 [facility] Serum or plasma creatinine m easurement (mass/volume)Ordered By: Dr. Ruffin on 01-14-2023 Creatinine [Mass/Vol] 0.76 mg/dL 0.55-1.02 [facility] Comment on above: The validity of the calculated GFR & GFRAA in patients over 70 years has not been determined. Clinical correlation is essential. Serum or plasma low density lipoprotein (LDL) cholesterol measurement (mass/volume)Ordered By: Dr. Ruffin on 01-14-2023 Cholesterol in LDL [Mass/Vol] 80 mg/dL 0-130 [facility] Serum or plasma urea nitroge n measurement (mass/volume)Ordered By: Dr. Ruffin on 01-14-2023 Urea nitrogen [Mass/Vol] 21 mg/dL 7-18 [facility] Thin prep Papanicolaou smear with manual screeningOrdered By: Dr. Ruffin on 01-14-2023 Thin prep Papanicolaou smear with manual screening 7 5-15 [facility] Glucose Glucometer (BldC) [M ass/Vol]Ordered By: Dr. Ruffin on 01-13-2023 Glucose [Mass/Vol] 96 mg/dL 74-106 [facility] Comment on above: MANAGEMENT OF PATIEN T CARE PER NURSING PROTOCOL INR in Blood by Coagulation assayOrdered By: Dr. Munguia on 01-13-2023 INR Coag (Bld) [Relative time] 1.0 {INR} [facility] - CoagulationOrde red By: Dr. Munguia on 01-13-2023 aPTT Coag (Bld) [Time] 24.0 s 24.1-36.2 [facility] PT Coag (PPP) [Time] 12.6 s 11.7-14.9 [facility] No Panel InformationOrdered By: Dr. Munguia on 01-13-2023 Troponin I High Sensitivity 23 pg/mL 3.0-54.0 [facility] Comment on above: Please Note: New Erika t Units and Gender Specific Reference Ranges. For more information see Policy Stat Procedure [place] High Sensitivity Troponin (TNIH) and attachments. Absolute lymphocyte counton 09-14-2022 Lymphocytes Auto (Unsp spec) [#/Vol] 1.81 10*3/uL 0.83-4.51 [facility] Work Phone: Basophil percentageon 2021 Basophils/100 WBC (Bld) 0.4 % 0-1 [facility] Work Phone: Bilirubin [Mass/Vol] 0.30 mg/dL 0.20-1.00 [facility] Work Phone: Comment on above: For patients on eltr ombopag therapy, use of Dimension [place] TBIL is not recommended. Chloride [Moles/Vol] 110 mmol/L 98-107 [facility] Work Phone: Cholesterol [Mass/Vol] 219 mg/dL <200 [facility] Work Phone: Comment on above: <200 mg/dL Desirable 200-240 mg/dL Borderline >240 mg/dL High Risk Eosinophils/100 WBC (Bld) 6.7 % 0-5 [facility] Work Phone: Glucose [Mass/Vol] 96 mg/dL 74-106 [facility] Work Phone: Neutrophils (Bld) [#/Vol] 5.1 10*3/uL 2.0-7.7 [facility] Work Phone: Neutrophils/100 WBC (Bld) 61.6 % 47-70 [facility] Work Phone: Potassium [Moles/Vol] 3.7 mmol/L 3.5-5.1 [facility] Work Phone: Protein [Mass/Vol] 7.2 g/dL 6.4-8.2 [facility] Work Phone: Sodium [Moles/Vol] 142 mmol/L 136-145 [facility] Work Phone: Triglyceride [Mass/Vol] 166 mg/dL <199 [facility] Work Phone: Comment on above: The drugs N-Acetylcy steine and Metamizole may falsely depress this assay.Serum Triglycerides Reference Interval Normal <150 mg/dL Borderline high 150 - 199 mg/dL High 200 - 499 mg/dL Very High > or = 500 mg/dL WBC (Bld) [#/Vol] 8.2 10*3/uL 4.4-11.0 [facility] Work Phone: [phone] Blood erythrocytes count (nu mber/volume)on 09-14-2022 RBC (Bld) [#/Vol] 4.95 10*6/uL 4.2-5.[address] [facility] Work Phone: Blood hemoglobin measurement (mass/volume)on 09-14-2022 Hemoglobin (Bld) [Mass/Vol] 15.1 g/dL 12.0-15.0 [facility] Work Phone: Blood lymphocytes/100 leukoc yteson 09-14-2022 Lymphocytes/100 WBC (Bld) 22.0 % 19-41 [facility] Work Phone: Blood monocytes/100 leukocyt eson 09-14-2022 Monocytes/100 WBC (Bld) 9.1 % 0-10 [facility] Work Phone: Blood platelet mean volumeon 09-14-2022 Platelet mean volume (Bld) [Entitic vol] 9.4 fL 6.2-12.0 [facility] Work Phone: Determination of erythrocyte mean corpuscular volume (MCV)on 09-14-2022 MCV (RBC) [Entitic vol] 97.6 fL 81-99 [facility] Work Phone: Hematocrit Auto (Bld) [Volum e fraction]on 09-14-2022 Hematocrit (Bld) [Volume fraction] 48.3 % 37-47 [facility] Work Phone: Laboratory - Chemistry and C hemistry - challengeon 09-14-2022 ALP [Catalytic activity/Vol] 97 U/L 45-117 [facility] Work Phone: ALT [Catalytic activity/Vol] 15 U/L 13-56 [facility] Work Phone: CO2 [Moles/Vol] 27.0 mmol/L 21.0-32.0 [facility] Work Phone: Globulin (S) [Mass/Vol] 3.5 g/dL 2.2-4.2 [facility] Work Phone: Urea nitrogen/Creatinine [Mass ratio] 22.5 mg/mg 10-20 [facility] Work Phone: Laboratory - Hematology and Cell countson 09-14-2022 Erythrocyte distribution width (RBC) [Entitic vol] 48.9 fL 35.1-43.9 [facility] Work Phone: Erythrocyte distribution width (RBC) [Ratio] 13.5 % 11.6-14.6 [facility] Work Phone: Immature granulocytes/100 WBC (Bld) 0.200 % 0.0-0.9 [facility] Work Phone: [phone] Comment on above: IG% - Immature Granu locytes (promyelocytes, myelocytes and metamyelocytes) > 1% indicates that a LEFT SHIFT is Present. MCH (RBC) [Entitic mass] 30.5 pg 27.0-32.0 [facility] Work Phone: Nucleated RBC/100 WBC (Bld) [Ratio] 0 % 0-5 [facility] Work Phone: MCHC Auto (RBC) [Mass/Vol]on 09-14-2022 MCHC (RBC) [Mass/Vol] 31.3 g/dL 32-36 [facility] Work Phone: No Panel Informationon 09-14 Estimated GFR (MDRD) Amer 75 mL/min >60 [facility] Work Phone: Comment on above: GFR Calc Estimated GFR (MDRD) Non-Af Amer 62 mL/min >60 [facility] Work Phone: Comment on above: Non- GFR Calc Platelets bldon 09-14-2022 Platelets (Bld) [#/Vol] 253 10*3/uL 150-450 [facility] Work Phone: Serum or plasma albumin guillermo urement (mass/volume)on 09-14-2022 Albumin [Mass/Vol] 3.7 g/dL 3.2-5.0 [facility] Work Phone: Serum or plasma albumin/glob ulin mass ratioon 09-14-2022 Albumin/Globulin [Mass ratio] 1.1 {ratio} 0.9-2.4 [facility] Work Phone: Serum or plasma calcium guillermo urement (mass/volume)on 09-14-2022 Calcium [Mass/Vol] 9.6 mg/dL 8.5-10.1 [facility] Work Phone: Serum or plasma cholesterol in HDL measurement (mass/volume)on 09-14-2022 Cholesterol in HDL [Mass/Vol] 77 mg/dL >40 [facility] Work Phone: Comment on above: The drugs N-Acetylcy steine and Metamizole may falsely depress this assay. Reference Range HDL <40 mg/dL Low HDL Cholesterol HDL >or= 60 mg/dL High HDL Cholesterol Serum or plasma cholesterol in VLDL measurement (mass/volume)on 09-14-2022 Cholesterol in VLDL [Mass/Vol] 33 mg/dL 5-40 [facility] Work Phone: Serum or plasma creatinine m easurement (mass/volume)on 09-14-2022 Creatinine [Mass/Vol] 0.93 mg/dL 0.55-1.02 [facility] Work Phone: Comment on above: The validity of the calculated GFR & GFRAA in patients over 70 years has not been determined. Clinical correlation is essential. Serum or plasma low density lipoprotein (LDL) cholesterol measurement (mass/volume)on 09-14-2022 Cholesterol in LDL [Mass/Vol] 109 mg/dL 0-130 [facility] Work Phone: Serum or plasma urea nitroge n measurement (mass/volume)on 09-14-2022 Urea nitrogen [Mass/Vol] 21 mg/dL 7-18 [facility] Work Phone: Thin prep Papanicolaou smear with manual screeningon 09-14-2022 Thin prep Papanicolaou smear with manual screening 19 U/L 15-37 [facility] Work Phone: Thin prep Papanicolaou smear with manual screening 5 5-15 [facility] Work Phone: Basophil percentageon 2021 Chloride [Moles/Vol] 109 mmol/L 98-107 [facility] Work Phone: Cholesterol [Mass/Vol] 167 mg/dL <200 [facility] Work Phone: Comment on above: <200 mg/dL Desirable 200-240 mg/dL Borderline >240 mg/dL High Risk Glucose [Mass/Vol] 81 mg/dL 74-106 [facility] Work Phone: Potassium [Moles/Vol] 3.8 mmol/L 3.5-5.1 [facility] Work Phone: Sodium [Moles/Vol] 143 mmol/L 136-145 [facility] Work Phone: Triglyceride [Mass/Vol] 179 mg/dL <199 [facility] Work Phone: Comment on above: The drugs N-Acetylcy steine and Metamizole may falsely depress this assay.Serum Triglycerides Reference Interval Normal <150 mg/dL Borderline high 150 - 199 mg/dL High 200 - 499 mg/dL Very High > or = 500 mg/dL Laboratory - Chemistry and C hemistry - challengeon 07-21-2022 CO2 [Moles/Vol] 26.0 mmol/L 21.0-32.0 [facility] Work Phone: Urea nitrogen/Creatinine [Mass ratio] 23.4 mg/mg 10-20 [facility] Work Phone: No Panel Informationon 07-21 Estimated Creatinine Clearance Calc 43.20 ml/min [facility] Work Phone: Estimated GFR (MDRD) Amer 88 mL/min >60 [facility] Work Phone: Comment on above: GFR Calc Estimated GFR (MDRD) Non-Af Amer 73 mL/min >60 [facility] Work Phone: Comment on above: Non- GFR Calc Serum or plasma calcium guillermo urement (mass/volume)on 07-21-2022 Calcium [Mass/Vol] 9.5 mg/dL 8.5-10.1 [facility] Work Phone: Serum or plasma cholesterol in HDL measurement (mass/volume)on 07-21-2022 Cholesterol in HDL [Mass/Vol] 55 mg/dL >40 [facility] Work Phone: Comment on above: The drugs N-Acetylcy steine and Metamizole may falsely depress this assay. Reference Range HDL <40 mg/dL Low HDL Cholesterol HDL >or= 60 mg/dL High HDL Cholesterol Serum or plasma cholesterol in VLDL measurement (mass/volume)on 07-21-2022 Cholesterol in VLDL [Mass/Vol] 36 mg/dL 5-40 [facility] Work Phone: Serum or plasma creatinine m easurement (mass/volume)on 07-21-2022 Creatinine [Mass/Vol] 0.81 mg/dL 0.55-1.02 [facility] Work Phone: Comment on above: The validity of the calculated GFR & GFRAA in patients over 70 years has not been determined. Clinical correlation is essential. Serum or plasma low density lipoprotein (LDL) cholesterol measurement (mass/volume)on 07-21-2022 Cholesterol in LDL [Mass/Vol] 76 mg/dL 0-130 [facility] Work Phone: Serum or plasma urea nitroge n measurement (mass/volume)on 07-21-2022 Urea nitrogen [Mass/Vol] 19 mg/dL 7-18 [facility] Work Phone: Thin prep Papanicolaou smear with manual screeningon 07-21-2022 Thin prep Papanicolaou smear with manual screening 8 5-15 [facility] Work Phone: Absolute lymphocyte counton 07-20-2022 Lymphocytes Auto (Unsp spec) [#/Vol] 1.63 10*3/uL 0.83-4.51 [facility] Work Phone: Basophil percentageon 2021 Basophil percentage 0 SEEN /hpf 0-5 [facility] Work Phone: Basophils/100 WBC (Bld) 0.3 % 0-1 [facility] Work Phone: Bilirubin [Mass/Vol] 0.40 mg/dL 0.20-1.00 [facility] Work Phone: Comment on above: For patients on eltr ombopag therapy, use of Dimension [place] TBIL is not recommended. Chloride [Moles/Vol] 102 mmol/L 98-107 [facility] Work Phone: Eosinophils/100 WBC (Bld) 0.7 % 0-5 [facility] Work Phone: Glucose [Mass/Vol] 115 mg/dL 74-106 [facility] Work Phone: Comment on above: Fasting Glucose resu lt from 100 to 125 mg/dL suggests IMPAIRED HOMEOSTASIS per A.D.A. criteria. Neutrophils (Bld) [#/Vol] 6.7 10*3/uL 2.0-7.7 [facility] Work Phone: Neutrophils/100 WBC (Bld) 72.9 % 47-70 [facility] Work Phone: [phone] Potassium [Moles/Vol] 3.3 mmol/L 3.5-5.1 [facility] Work Phone: [phone] Protein [Mass/Vol] 6.8 g/dL 6.4-8.2 [facility] Work Phone: Sodium [Moles/Vol] 139 mmol/L 136-145 [facility] Work Phone: WBC (Bld) [#/Vol] 9.2 10*3/uL 4.4-11.0 [facility] Work Phone: Bilirubin Test strip Ql (U)o n 07-20-2022 Bilirubin Ql (U) Negative Negative [facility] Work Phone: Blood erythrocytes count (nu mber/volume)on 07-20-2022 RBC (Bld) [#/Vol] 4.80 10*6/uL 4.2-5.[address] [facility] Work Phone: Blood hemoglobin measurement (mass/volume)on 07-20-2022 Hemoglobin (Bld) [Mass/Vol] 14.8 g/dL 12.0-15.0 [facility] Work Phone: [phone] Blood lymphocytes/100 leukoc yteson 07-20-2022 Lymphocytes/100 WBC (Bld) 17.8 % 19-41 [facility] Work Phone: [phone] Blood monocytes/100 leukocyt eson 07-20-2022 Monocytes/100 WBC (Bld) 7.9 % 0-10 [facility] Work Phone: Blood platelet mean volumeon 07-20-2022 Platelet mean volume (Bld) [Entitic vol] 9.3 fL 6.2-12.0 [facility] Work Phone: Determination of erythrocyte mean corpuscular volume (MCV)on 07-20-2022 MCV (RBC) [Entitic vol] 95.2 fL 81-99 [facility] Work Phone: Hematocrit Auto (Bld) [Volum e fraction]on 07-20-2022 Hematocrit (Bld) [Volume fraction] 45.7 % 37-47 [facility] Work Phone: Ketones Test strip Ql (U)on 07-20-2022 Ketones Ql (U) Negative Negative [facility] Work Phone: Laboratory - Chemistry and C hemistry - challengeon 07-20-2022 ALP [Catalytic activity/Vol] 73 U/L 45-117 [facility] Work Phone: ALT [Catalytic activity/Vol] 13 U/L 13-56 [facility] Work Phone: CO2 [Moles/Vol] 30.0 mmol/L 21.0-32.0 [facility] Work Phone: Globulin (S) [Mass/Vol] 3.5 g/dL 2.2-4.2 [facility] Work Phone: Urea nitrogen/Creatinine [Mass ratio] 22.0 mg/mg 10-20 [facility] Work Phone: Laboratory - Hematology and Cell countson 07-20-2022 Erythrocyte distribution width (RBC) [Entitic vol] 45.4 fL 35.1-43.9 [facility] Work Phone: Erythrocyte distribution width (RBC) [Ratio] 12.8 % 11.6-14.6 [facility] Work Phone: Immature granulocytes/100 WBC (Bld) 0.400 % 0.0-0.9 [facility] Work Phone: Comment on above: IG% - Immature Granu locytes (promyelocytes, myelocytes and metamyelocytes) > 1% indicates that a LEFT SHIFT is Present. MCH (RBC) [Entitic mass] 30.8 pg 27.0-32.0 [facility] Work Phone: Nucleated RBC/100 WBC (Bld) [Ratio] 0 % 0-5 [facility] Work Phone: MCHC Auto (RBC) [Mass/Vol]on 07-20-2022 MCHC (RBC) [Mass/Vol] 32.4 g/dL 32-36 [facility] Work Phone: Mucus LM Ql (Urine sed)on Mucus Ql (Urine sed) 0 SEEN /hpf [facility] Work Phone: Nitrite Test strip Ql (U)on 07-20-2022 Nitrite Ql (U) Negative Negative [facility] Work Phone: No Panel Informationon 07-20 Estimated Creatinine Clearance Calc 35.15 ml/min [facility] Work Phone: Estimated GFR (MDRD) Amer 73 mL/min >60 [facility] Work Phone: Comment on above: GFR Calc Estimated GFR (MDRD) Non-Af Amer 61 mL/min >60 [facility] Work Phone: Comment on above: Non- GFR Calc Platelets bldon 07-20-2022 Platelets (Bld) [#/Vol] 207 10*3/uL 150-450 [facility] Work Phone: Protein Test strip Ql (U)on 07-20-2022 Protein Ql (U) Negative Negative [facility] Work Phone: Serum or plasma albumin guillermo urement (mass/volume)on 07-20-2022 Albumin [Mass/Vol] 3.3 g/dL 3.2-5.0 [facility] Work Phone: Serum or plasma albumin/glob ulin mass ratioon 07-20-2022 Albumin/Globulin [Mass ratio] 0.9 {ratio} 0.9-2.4 [facility] Work Phone: Serum or plasma calcium guillermo urement (mass/volume)on 07-20-2022 Calcium [Mass/Vol] 11.2 mg/dL 8.5-10.1 [facility] Work Phone: Serum or plasma creatinine m easurement (mass/volume)on 07-20-2022 Creatinine [Mass/Vol] 0.95 mg/dL 0.55-1.02 [facility] Work Phone: Comment on above: The validity of the calculated GFR & GFRAA in patients over 70 years has not been determined. Clinical correlation is essential. Serum or plasma urea nitroge n measurement (mass/volume)on 07-20-2022 Urea nitrogen [Mass/Vol] 21 mg/dL 7-18 [facility] Work Phone: Squamous epithelial cells de tection in urine sediment by light microscopyon 07-20-2022 Epithelial cells.squamous LM Ql (Urine sed) 0 SEEN /hpf 5-10 [facility] Work Phone: Thin prep Papanicolaou smear with manual screeningon 07-20-2022 Thin prep Papanicolaou smear with manual screening 15 U/L 15-37 [facility] Work Phone: Thin prep Papanicolaou smear with manual screening 7 5-15 [facility] Work Phone: Urine blood detectionon 07-07 RBC Ql (U) 10 /ul Negative [facility] Work Phone: RBC Ql (U) 0 SEEN /hpf 0-5 [facility] Work Phone: Urine clarityon 07-20-2022 Clarity (U) Sl. Cloudy Clear [facility] Work Phone: Urine color determinationon 07-20-2022 Color (U) Yellow Yellow [facility] Work Phone: Urine glucose detectionon Glucose Ql (U) Normal mg/dl Normal [facility] Work Phone: Urine leukocyte esterase det ection by dipstickon 07-20-2022 Leukocyte esterase Test strip Ql (U) 25 /ul Negative [facility] Work Phone: Urine pHon 07-20-2022 pH (U) 6.5 [pH] 5.0 - 8.0 [facility] Work Phone: Urine sediment bacteria coun t by microscopy (number/high power field)on 07-20-2022 Bacteria LM.HPF (Urine sed) [#/Area] 1 /[HPF] None Seen [facility] Work Phone: Urine specific gravity measu rementon 07-20-2022 Specific gravity (U) [Rel density] 1.010 1.002-1.030 [facility] Work Phone: Urobilinogen Auto test strip Ql (U)on 07-20-2022 Urobilinogen Ql (U) Normal mg/dl Normal [facility] Work Phone: Whole blood hemoglobin A1c/t otal hemoglobin ratio (mass fraction)on 07-20-2022 HbA1c (Bld) [Mass fraction] 5.3 % 3.8-5.6 [facility] Work Phone: Comment on above: Normal < 5.7 % Predi abetic 5.7 - 6.4 % Diabetic >or= 6.5 % Please note range changes. Vital Signs Date Time Vital Sign Value Performing Clinician Faci lity 03-13-2023 11:10-0400 Body mass index (BMI) [Ratio] 17.4 kg/m2 Dr. Amisha Torrez Work Phone: [facility] 03-13-2023 09:00-0400 Body temperature 97.7 [degF] Dr. Amisha Torrez Work Phone: [facility] 03-13-2023 09:00-0400 Diastolic blood pressure 101 mm[Hg] Dr. Amisha Torrez Work Phone: [facility] 03-13-2023 09:00-0400 Heart rate 65 /min Dr. Amisha Torrez Work Phone: [facility] 03-13-2023 09:00-0400 Respiratory rate 16 /min Dr. Amisha Torrez Work Phone: [facility] 03-13-2023 09:00-0400 SaO2% (BldA) [Mass fraction] 100 % Dr. Amisha Torrez Work Phone: [facility] 03-13-2023 09:00-0400 Systolic blood pressure 147 mm[Hg] Dr. Amisha Torrez Work Phone: [facility] 03-12-2023 08:28-0400 Body height 162.[address] Amisha Torrez Work Phone: [facility] 03-12-2023 08:28-0400 Body weight 46.[address] Amisha Torrez Work Phone: [facility] 03-11-2023 20:00-0400 Body temperature 97.9 [degF] Dr. Amisha Torrez Work Phone: [facility] 03-11-2023 20:00-0400 Diastolic blood pressure 85 mm[Hg] Dr. Amisha Torrez Work Phone: [facility] 03-11-2023 20:00-0400 Heart rate 65 /min Dr. Amisha Torrez Work Phone: [facility] 03-11-2023 20:00-0400 Respiratory rate 18 /min Dr. Amisha Torrez Work Phone: [facility] 03-11-2023 20:00-0400 SaO2% (BldA) [Mass fraction] 97 % Dr. Amisha Torrez Work Phone: [facility] 03-11-2023 20:00-0400 Systolic blood pressure 114 mm[Hg] Dr. Amisha Torrez Work Phone: [facility] 03-11-2023 18:07-0400 Body height 157.[address] Amisha Torrez Work Phone: [facility] 03-11-2023 18:07-0400 Body mass index (BMI) [Ratio] 19.1 kg/m2 Dr. Amisha Torrez Work Phone: [facility] 03-11-2023 18:07-0400 Body weight 47.[address] Amisha Torrez Work Phone: [facility] 01-25-2023 10:04-0400 Body height 162.6 cm Chiquis Haider MD Work Phone: [facility] 01-25-2023 10:04-0400 Body weight 45.36 kg Chiquis Haider MD Work Phone: [facility] 01-25-2023 10:04-0400 Diastolic blood pressure 101 mm[Hg] Chiquis Haider MD Work Phone: [facility] 01-25-2023 10:04-0400 Heart rate 90 /min Chiquis Haider MD Work Phone: [facility] 01-25-2023 10:04-0400 Systolic blood pressure 151 mm[Hg] Chiquis Haider MD Work Phone: [facility] 01-14-2023 14:16-0500 Body temperature 98 [degF] Dr. Amisha Torrez Work Phone: [facility] 01-14-2023 14:16-0500 Diastolic blood pressure 96 mm[Hg] Dr. Amisha Torrez Work Phone: [facility] 01-14-2023 14:16-0500 Heart rate 68 /min Dr. Amisha Torrez Work Phone: [facility] 01-14-2023 14:16-0500 Respiratory rate 18 /min Dr. Amisha Torrez Work Phone: [facility] 01-14-2023 14:16-0500 SaO2% (BldA) [Mass fraction] 96 % Dr. Amisha Torrez Work Phone: [facility] 01-14-2023 14:16-0500 Systolic blood pressure 125 mm[Hg] Dr. Amisha Torrez Work Phone: [facility] 01-14-2023 03:47-0500 Body mass index (BMI) [Ratio] 17.6 kg/m2 Dr. Amisha Torrez Work Phone: [facility] 01-13-2023 18:50-0500 Body height 162.[address] Amisha Torrez Work Phone: [facility] 01-13-2023 18:50-0500 Body weight 46.[address] Amisha Torrez Work Phone: [facility] 10-11-2022 12:57-0500 Body mass index (BMI) [Ratio] 17.8 kg/m2 Dr. Amisha Torrez Work Phone: [facility] 10-11-2022 12:57-0500 Body temperature 97.7 [degF] Dr. Amisha Torrez Work Phone: [facility] 10-11-2022 12:57-0500 Body weight 47.[address] Amisha Torrez Work Phone: [facility] 10-11-2022 12:57-0500 Diastolic blood pressure 80 mm[Hg] Dr. Amisha Torrez Work Phone: [facility] 10-11-2022 12:57-0500 Heart rate 81 /min Dr. Amisha Torrez Work Phone: [facility] 10-11-2022 12:57-0500 Respiratory rate 16 /min Dr. Amisha Torrez Work Phone: [facility] 10-11-2022 12:57-0500 SaO2% (BldA) [Mass fraction] 100 % Dr. Amisha Torrez Work Phone: [facility] 10-11-2022 12:57-0500 Systolic blood pressure 128 mm[Hg] Dr. Amisha Torrez Work Phone: [facility] 07-21-2022 14:09-0400 Body temperature 98.1 [degF] MD Ike Palacios Work Phone: [facility] Work Phone: 07-21-2022 14:09-0400 Diastolic blood pressure 85 mm[Hg] MD Ike Palacios Work Phone: [facility] Work Phone: 07-21-2022 14:09-0400 Heart rate 76 /min MD Ike Palacios Work Phone: [facility] Work Phone: 07-21-2022 14:09-0400 Respiratory rate 18 /min MD Ike Palacios Work Phone: [facility] Work Phone: 07-21-2022 14:09-0400 SaO2% (BldA) [Mass fraction] 96 % MD Ike Palacios Work Phone: [facility] Work Phone: 07-21-2022 14:09-0400 Systolic blood pressure 132 mm[Hg] MD Ike Palacios Work Phone: [facility] Work Phone: 07-21-2022 10:22-0400 Body height 162.56 cm MD Ike Palacios Work Phone: [facility] Work Phone: 07-21-2022 10:22-0400 Body mass index (BMI) [Ratio] 17.5 kg/m2 MD Ike Palacios Work Phone: [facility] Work Phone: 07-21-2022 10:22-0400 Body weight 46.32 kg MD Ike Palacios Work Phone: [facility] Work Phone: 07-20-2022 16:15-0400 Body temperature 98.2 [degF] [facility] Work Phone: 07-20-2022 16:15-0400 Diastolic blood pressure 106 mm[Hg] [facility] Work Phone: 07-20-2022 16:15-0400 Heart rate 72 /min [facility] Work Phone: 07-20-2022 16:15-0400 Respiratory rate 16 /min [facility] Work Phone: 07-20-2022 16:15-0400 SaO2% (BldA) [Mass fraction] 99 % [facility] Work Phone: 07-20-2022 16:15-0400 Systolic blood pressure 169 mm[Hg] [facility] Work Phone: 07-20-2022 12:58-0400 Body height 162.56 cm [facility] Work Phone: 07-20-2022 12:58-0400 Body mass index (BMI) [Ratio] 16.7 kg/m2 [facility] Work Phone: 07-20-2022 12:58-0400 Body weight 44.2 kg [facility] Work Phone: Encounters Encounter Date Encounter Type Care Provider Facility Start: 10-16-2024 Encounter for genera l adult medical examination without abnormal findings [facility] Start: 09-18-2024 End: 09-18-2024 ambulatory [facility] Facility:[facility] Start: 03-01-2024 End: 03-01-2024 ambulatory [facility] Work Phone: Start: 03-01-2024 End: 03-01-2024 Patient encounter procedure [facility] Work Phone: Start: 03-01-2024 End: 03-01-2024 ambulatory [facility] Facility:[facility] Start: 10-25-2023 End: 10-25-2023 ambulatory [facility] Facility:[facility] Start: 10-25-2023 End: 10-25-2023 ambulatory [facility] Facility:[facility] Start: 10-19-2023 End: 10-19-2023 ambulatory [facility] Work Phone: Start: 10-19-2023 End: 10-19-2023 Patient encounter procedure [facility] Work Phone: Start: 10-12-2023 End: 10-12-2023 ambulatory [facility] Work Phone: Start: 10-12-2023 End: 10-12-2023 Patient encounter procedure [facility] Work Phone: Start: 08-14-2023 End: 08-14-2023 ambulatory [facility] Work Phone: Start: 08-14-2023 End: 08-14-2023 Patient encounter procedure [facility] Start: 07-20-2023 End: 07-21-2023 ambulatory LA NEWBERRY Facility:[facility] Start: 06-26-2023 E-mail encounter fro m caregiver La Newberry MD Work Phone: [facility] Start: 06-26-2023 Patient encounter procedure La Newberry MD Work Phone: [facility] Comment on above: URGENT Appointment C ancelled Start: 03-12-2023 Non-patient / Non-visit Dr. Amisha Torrez Work Phone: [facility] Start: 03-11-2023 Non-patient / Non-visit Dr. Amisha Torrez Work Phone: [facility] Start: 03-11-2023 End: 03-13-2023 Evaluation and management of inpatient Dr. 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 Start: 01-25-2023 End: 01-26-2023 ambulatory ALONSO OBANDO Facility:[facility] Start: 01-25-2023 End: 01-25-2023 ambulatory ALONSO OBANDO Facility:[facility] Start: 01-25-2023 End: 01-25-2023 Patient encounter procedure Chiquis Haider MD Work Phone: [facility] Comment on above: Elevated blood press ure reading without diagnosis of hypertension [R03.0 (ICD-10-CM)] (Primary Dx); 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); Arterial ischemic stroke, MCA (middle cerebral artery), left, acute (HCC) Start: 01-14-2023 Non-patient / Non-visit Dr. Amisha Torrez Work Phone: [facility] Start: 01-14-2023 Non-patient / Non-visit Dr. Amisha Torrez Work Phone: [facility] Start: 01-13-2023 End: 01-14-2023 Evaluation and management of inpatient Dr. Amisha Torrez Work Phone: [facility] [facility] Start: 01-13-2023 End: 01-14-[address] Amisha Torrez Work Phone: [facility] Work Phone: Start: 10-11-2022 End: 10-11-[address] Amisha Torrez Work Phone: [facility] Start: 09-14-2022 End: 09-14-2022 ambulatory MD Ike Palacios Work Phone: [facility] Work Phone: Start: 09-14-2022 End: 09-14-2022 Patient encounter procedure MD [facility]ke [facility]acios [facility] Start: 07-21-2022 Non-patient / Non-visit MD Ike Palacios Work Phone: [facility] Start: 07-21-2022 Non-patient / Non-visit MD Ike Palacios Work Phone: [facility] Start: 07-21-2022 Non-patient / Non-visit MD Ike Palacios Work Phone: [facility] Start: 07-20-2022 Non-patient / Non-visit MD Ike Palacios Work Phone: 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 Amisha Torrez Work Phone: Start: 03-11-2023 Plain chest X-ray Dr. Solitario Torrez Work Phone: Start: 03-11-2023 CT angiography of he ad and neck Dr. Amisha Torrez Work Phone: Start: 03-11-2023 CT of head without contrast Dr. Amisha Torrez Work Phone: Start: 01-14-2023 CT angiography of he ad and neck Dr. Amisha Torrez Work Phone: Start: 01-14-2023 MRI of brain without contrast Dr. Amisha Torrez Work Phone: Start: 01-13-2023 Plain chest X-ray Dr. Solitario Torrez Work Phone: Start: 01-13-2023 CT of head without contrast Dr. Amisha Torrez Work Phone: Start: 07-20-2022 MRI of neck vessels with contrast MD Ike Palacios Work Phone: Start: 07-20-2022 Magnetic resonance angiography of head without contrast MD Ike Palacios Work Phone: Start: 07-20-2022 MRI of brain without contrast MD Ike Palacios Work Phone: Start: 07-20-2022 Plain chest X-ray Start: 07-20-2022 CT of head without contrast Plan of Treatment Date Care Activity Detail Author Start: 07-07-2023 Influenza vaccination INFLUENZA (#1) [facility] Start: 03-13-2023 Patient discharge [facility] Start: 03-11-2023 Following clinical pathway protocol [facility] Start: 03-11-2023 Assessment of risk o f venous thromboembolism [facility] Start: 03-11-2023 Cardiac monitoring [facility] Start: 03-11-2023 Catheterization of vein [facility] Start: 03-11-2023 Elevation of head of bed [facility] Start: 03-11-2023 Exercises [facility] Start: 03-11-[address] anned interventions [facility] Start: 03-11-2023 Insertion of cathete r into peripheral vein [facility] Start: 03-11-2023 Measuring intake and output [facility] Start: 03-11-2023 Notification of physician [facility] Start: 03-11-2023 Oxygen therapy [facility] Start: 03-11-2023 Patient referral to dietitian [facility] Start: 03-11-2023 Providing care accor ding to standard [facility] Start: 03-11-2023 Provision of activit y privileges [facility] Start: 03-11-2023 Referral to occupati onal therapist [facility] Start: 03-11-2023 Referral to service [facility] Start: 03-11-2023 Tobacco use cessatio n education [facility] Start: 03-11-2023 [facility] Start: 03-11-2023 Troponin I measurement [facility] Start: 03-11-2023 Urinalysis complete panel - Urine [facility] Start: 03-11-2023 Admission procedure [facility] Start: 03-11-2023 Oxygen therapy [facility] Start: 03-11-2023 [facility] Start: 01-25-2023 End: 03-27-2023 Nuclear Ab [Presence] in Serum by Immunoassay [facility] Work Phone: Comment on above: Expected: 01/25/2023 , Expires: 03/27/2023 Start: 01-25-2023 End: 03-27-2023 Rheumatoid factor [Units/volume] in Serum or Plasma [facility] Work Phone: Comment on above: Expected: 01/25/2023 , Expires: 03/27/2023 Start: 01-14-2023 Verification routine [facility] Start: 01-14-2023 Patient discharge [facility] Start: 01-14-2023 Application of intermittent pneumatic compression device [facility] Start: 01-13-2023 Following clinical pathway protocol [facility] Start: 01-13-2023 Assessment of risk o f venous thromboembolism [facility] Start: 01-13-2023 Cardiac monitoring [facility] Start: 01-13-2023 Catheterization of vein [facility] Start: 01-13-2023 Continuous pulse oximetry [facility] Start: 01-13-2023 Elevation of head of bed [facility] Start: 01-13-2023 Exercises [facility] Start: 01-13-[address] anned interventions [facility] Start: 01-13-2023 Insertion of cathete r into peripheral vein [facility] Start: 01-13-2023 Measuring intake and output [facility] Start: 01-13-2023 Notification of physician [facility] Start: 01-13-2023 Oxygen therapy [facility] Start: 01-13-2023 Providing care accor ding to standard [facility] Start: 01-13-2023 Provision of activit y privileges [facility] Start: 01-13-2023 Referral to occupati onal therapist [facility] Start: 01-13-2023 Referral to service [facility] Start: 01-13-2023 Speech therapy assessment [facility] Start: 01-13-2023 Tobacco use cessatio n education [facility] Start: 01-13-2023 [facility] Start: 01-13-2023 Admission procedure [facility] Start: 11-06-2022 ADVANCE DIRECTIVE DISCUSSION ADVANCE DIRECTIVE DISCUSSION [facility] Start: 11-06-2022 DEPRESSION ASSESSMENT DEPRESSION ASS ESSMENT [facility] Start: 07-21-2022 Patient discharge [facility] Work Phone: Start: 07-21-2022 Blood chemistry [facility] Work Phone: Start: 07-20-2022 Referral to vascular surgeon [facility] Work Phone: Start: 07-20-2022 Following clinical pathway protocol [facility] Work Phone: Start: 07-20-2022 Ambulation without limitation [facility] Work Phone: Start: 07-20-2022 Assessment of risk o f venous thromboembolism [facility] Work Phone: Start: 07-20-2022 Catheterization of vein [facility] Work Phone: Start: 07-20-2022 Insertion of cathete r into peripheral vein [facility] Work Phone: Start: 07-20-2022 Measuring intake and output [facility] Work Phone: Start: 07-20-2022 Providing care accor ding to standard [facility] Work Phone: Start: 07-20-2022 Referral to occupati onal therapist [facility] Work Phone: Start: 07-20-2022 Referral to service [facility] Work Phone: Start: 07-20-2022 Speech therapy assessment [facility] Work Phone: Start: 07-20-2022 [facility] Work Phone: Start: 07-20-2022 Magnetic resonance angiography of head without contrast MRA Head ONLY without Contrast [facility] Work Phone: Start: 07-20-2022 MRI of brain without contrast Brain without Contrast [facility] Work Phone: Start: 07-20-2022 MRI of neck vessels with contrast MRA Neck WITH and W/O Contrast [facility] Work Phone: Start: 07-20-2022 Verification routine [facility] Work Phone: Start: 07-20-2022 Admission procedure [facility] Work Phone: Start: 07-20-2022 Patient referral to dietitian [facility] Work Phone: Start: 07-07-2022 Influenza vaccination INFLUENZA (#1) [facility] Start: 03-05-2022 COVID-19 VACCINE (3 - Booster for Susan series) COVID-19 VACCINE (3 - Booster for Susan series) [facility] Start: 12-30-2021 COVID-19 VACCINE (4 - Booster for Susan series) COVID-19 VACCINE (4 - Booster for Susan series) [facility] Start: 11-06-2021 ADVANCE DIRECTIVE DISCUSSION ADVANCE DIRECTIVE DISCUSSION [facility] Start: 05-06-2019 Urine microalbumin profile DTAP,TDAP,TD (3 - Td or Tdap) [facility] Start: 10-15-2013 DIABETES SCREEN DIABETES SCREEN [facility] Start: 2010 PNEUMOCOCCAL: 65+ (1 - PCV) PNEUMOCOCCAL: 65+ (1 - PCV) [facility] Start: 1995 SHINGRIX VACCINE (1 of 2) SUMMERS GRIX VACCINE (1 of 2) [facility] Start: 1963 HEPATITIS C SCREENING HEPATITIS C DC ARJUN [facility] Start: 1957 Adult depression screening assessment DEPRESSION SCREENING [facility] Anion gap measurement [facility] Work Phone: BUN/Creatinine ratio [facility] Work Phone: Calcium [Mass/volume ] in Serum or Plasma [facility] Work Phone: Carbon dioxide, tota l [Moles/volume] in Serum or Plasma [facility] Work Phone: Chloride [Moles/volu me] in Serum or Plasma [facility] Work Phone: Creatinine [Moles/vo lume] in Serum or Plasma [facility] Work Phone: End: 01-26-2024 EPIL EEG ROUTINE EPIL EEG ROUTINE NEUROLOGY Routine Arterial ischemic stroke, MCA (middle cerebral artery), left, acute (HCC) 1 Occurrences starting 01/25/2023 until 01/26/2024 [facility] Work Phone: Comment on above: 1 Occurrences starti ng 01/25/2023 until 01/26/2024 Glucose [Mass/volume ] in Serum or Plasma [facility] Work Phone: Measurement of renal function [facility] Work Phone: OT PLAN OF CARE CERTIFICATION OT PLAN OF CARE CERTIFICATION Procedures Routine 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) Ordered: 02/16/2023 [facility] Work Phone: Comment on above: Ordered: 02/16/2023 Patient Education TIA Dc [facility] Work Phone: Patient referral [facility] Work Phone: Potassium [Moles/vol ume] in Serum or Plasma [facility] Work Phone: Sodium [Moles/volume ] in Serum or Plasma [facility] Work Phone: Urea nitrogen [Mass/volume] in Serum or Plasma [facility] Work Phone: [facility] Immunizations Immunization Date Immunization Notes Care Provider Pato raymond 08-06-2022 influenza, injectabl e, quadrivalent, preservative free [facility] 08-06-2022 influenza, seasonal, injectable Dr. Amisha Torrez Work Phone: [facility] 11-06-2020 Jessica ([employer]) MD Ike Palacios Work Phone: [facility] 12-07-2017 influenza, high dose seasonal, preservative-free Chris Morin APRN.FENCE BUILDER Work Phone: [facility] 08-20-2010 influenza virus vaccine, unspecified formulation Chris Morin APRN.FENCE BUILDER Work Phone: [facility] Work Phone: 05-06-2009 diphtheria and tetan us toxoids, adsorbed for pediatric use Chris Morin SUSTAINABLE PRODUCTS MARKETING MANAGER.FENCE BUILDER Work Phone: [facility] Work Phone: 09-19-2008 tetanus toxoid, reduced diphtheria toxoid, and acellular pertussis vaccine, adsorbed Chris Presleyascencion SUSTAINABLE PRODUCTS MARKETING MANAGER.FENCE BUILDER Work Phone: [facility] Work Phone: Payers Date Payer Category Payer Self-pay [id number] 2021 Private Health Insurance [id number] 2021 Private Health Insurance [place] [employer] [id number] 2021-Present [phone] [address] [place] [address] Indemnity [id number] 2011 Private Health Insurance [facility] [id number] 2010 Medicare [id number] 2010 Medicare MEDICARE MEDICAR E A AND B [id number] 2010-Present [phone] [address] [address] [place] [address] Medicare [id number] Unknown [id number] Unknown [id number] Unknown [id number] Unknown [id number] Social History Date Type Detail Facility Start: 07-20-2022 End: 10-25-2023 Tobacco smoking status NHIS Unknown if ever smoked [facility] Start: 02-24-2019 None [facility] Start: 02-24-2019 Alone [facility] Start: 03-11-2019 Cigarettes [facility] Start: 1945 Sex Assigned At Female C [facility] Start: 10-15-2010 Tobacco smoking stat us NHIS Never smoked tobacco [facility] Work Phone: History of tobacco use Cigarette Smoker C [facility] Work Phone: Start: 10-15-2010 End: 06-26-2023 Cigarettes smoked current (pack per day) - Reported 0.1 [facility] History of tobacco use Passive smoker [facility] Work Phone: Start: 07-20-2022 End: 01-25-2023 Alcohol intake Current drinker of alcohol (finding) [facility] Start: 05-21-2007 History SDOH Alcohol Comment social [facility] Start: 10-15-2010 Tobacco Comment 10/ wk [facility] Start: 07-10-2022 End: 07-20-2022 Exposure to SARS-CoV-2 (event) Not sure [facility] Start: 01-25-2023 End: 06-26-2023 Tobacco use panel [facility] National Score (1-10 0), lower number is lower risk 66 [facility] Start: 09-20-2021 Gender identity Identifies as female gender (finding) [facility] Goals Date Patient Goal Desired Activity /State Functional Status Date Assessment Result Facility 03-13-2023 Functional status Activity Abili ty Standby Assist [facility] Work Phone: 03-12-2023 Functional status Ambulates [facility] Work Phone: 01-14-2023 Functional status Ambulates [facility] Work Phone: 07-21-2022 Functional status Activity Ability Indepe ndent [facility] Work Phone: 07-21-2022 Functional status Patient Activi ty Ambulates;Up ad behzad [facility] Work Phone: Mental Status Date Assessment Result Facility 03-13-2023 Cognitive function Voice/Name [facility] Work Phone: 03-11-2023 Cognitive function Voice/Name [facility] Work Phone: 01-14-2023 Cognitive function Voice/Name [facility] Work Phone: 07-21-2022 Cognitive function Voice/Name [facility] Work Phone: 07-20-2022 Cognitive function Voice/Name [facility] Work Phone: Clinical Notes 07-20-2022 to 07-20-2023 Note Date & Type Note Facility 07-20-2023 Note HNO ID: [id number] Author: La Newberry MD Service: ? Author Type: Physician Type: Progress Notes Filed: 08/14/2023 8:21 PM Note Text: [facility] Initial Visit Consultation is requested by: Consultation requested by Dr. Obando for an opinion regarding white matter disease. My final recommendations will be communicated back to the requesting physician by way of shared medical record or letter via US mail PCP: Alonso Obando [address] [place] [address] [place] [address] CEREBROVASCULAR HISTORY Sheela Tadeo is a 77 year old female. Reason for Visit: cognitive dysfunction - White matter disease Date of Last Event: 02/18/2023 (estimated date) History of Event: 77 year old female hx of migraine, adjustment disorder who presents to cerebrovascular clinic for assessment of white matter changes on MRI and hx of recurrent TIA. 02/24/2019: - They described episodes of slurred speech, difficulty getting her words out. These only occurred a few times. MRI brain that showed tiny acute stroke in the left parietal white matter and severe white matter disease. Found to have HTN and HLD, was smoking at that time. D/c'ed with medications but was non-adherent. In 07/2022, she began to have recurrent episodes of slurred speech, confusion, and difficulty getting words out. This occurred just once. Unclear if happened again as lives alone. Repeat MRI showed again severe wm changes, she saw stroke as an outpatient who referred to vasculopathy clinic for additional evaluation. She has a hx of migraines, has one about every 3-4 weeks. She takes ASA for these which seems to help. Antiplatelets/Anticoagulants: Aspirin Statins: Atorvastatin Side effects: No Refills needed: No Residual Deficits: No residual deficits Current PT/OT/ST: No therapy needs Initial Discharge Disposition: Home Current Living Situation: Home alone Current use of a mobility aid for walking/getting around: None Do you have any planned upcoming surgeries or dental procedures? No RAD COGNITIVE ASSESSMENT (MOCA) Visuospatial/Executive: - Letter/Number Mappin/1 - Copy Cube: 0 - Draw Clock (Ten Past Eleven): - Clock Contour 11/06 - Clock Numbers - Clock Hands 11/06 Naming: - Lion 11/06 - Rhino 11/06 - Camel 11/06 Memory: Read list of words and subject must repeat them. Do 2 trials even if 1st trial is successful. There is no scoring for this part of the assessment. - Face, Velvet, Zoroastrianism, Marlen, Red Attention: - Repeat in forward order 2, 1, 8, 5, 4 11/06 - Repeat in backward order 7, 4, 2 11/06 - Read list, subject to tap for A's (zero for >/= to 2 errors) - F B A C M N A A J K L B A F A K D E A A A J A M O F A A B 11/06 - Serial Sevens, 93, 86, 79, 72, 65 - 4-5 correct=3points 2-3 correct=2 points 1 correct = 1 point 3/3 Language: - Repeat: I only know that Rogelio is the one to help today 11/06 - Repeat: The cat always hid under the couch when the dogs were in the Room 11/06 - Number of words that begin with F. (1 point for >/= to 11 words) 11/06 Abstraction: - Similarity between train and bicycle 11/06 - Similarity between watch and ruler 11/06 Delayed Recall - Words - Face 11/06 - Velvet 11/06 - Zoroastrianism - Marlen - Red 11/06 Orientation - Date 0/1 - Month 11/06 - Year 11/06 - Day 11/06 - Place 11/06 - [facility] 11/06 Total Points Scored 25/30 Normal is 26 points or greater. * [email or web address] PAST MEDICAL HISTORY Diagnosis Date Abdominal pain, unspecified site Diverticulosis of colon (without mention of hemorrhage) Hemorrhage of gastrointestinal tract, unspecified Kidney stones Migraine without aura PAST SURGICAL HISTORY Procedure Laterality Date COLONOSCOPY FLX DX W/COLLJ SPEC WHEN PFRMD 06/05/2007 Colonoscopy XCAPSL CTRC RMVL INSJ IO LENS PROSTH W/O ECP 2006 Cataract Removal, bilat FAMILY HISTORY Problem Relation Age of Onset None Father Diabetes Mother Social History Tobacco Use Smoking status: Every Day Packs/day: 0.10 Years: 50.00 Additional pack years: 0.00 Total pack years: 5.00 Types: Cigarettes Passive exposure: Yes Smokeless tobacco: Never Tobacco comments: 10/ wk Substance Use Topics Alcohol use: Yes Comment: social MEDICATIONS Current Outpatient Medications Medication Sig albuterol HFA (PROAIR HFA) 90 mcg/actuation inhaler Inhale 2 Puffs as instructed every 6 hours as needed. Ibandronate (BONIVA) 150 mg ORAL tablet Take 1 tablet by mouth once every month. IN THE MORNING WITH A FULL GLASS OF WATER, ON AN EMPTY STOMACH, AND DO NOT TAKE ANYTHING ELSE BY MOUTH OR LIE DOWN FOR THE NEXT 30 MINUTES. sumatriptan (IMITREX) 50 mg ORAL tablet Take 1 tablet by mouth as needed. sertraline (ZOLOFT) 100 mg ORAL tablet Take one(1) tablet daily. THERAPEUTIC MULTIVITAMIN TAB Take one(1) tablet daily. calcium carbonate/vitamin d3(CALCIUM 600 + D 600 MG-125 UNIT TAB) Take one (more content not included)... [facility] 03-13-2023 Discharge summary Note Date/Time March 13, 2023 10:52a m [facility] Medical Records Department [address] [place] [address] Instructions for Home/Discharge Instructions 03/13/23 1050 MR#: [id number] Acct: [id number] Name: SHEELA TADEO Rep #:[id number] : 1945 77 From: Vijay Juárez DO PCP: Dr. Amisha Torrez MD Status:ADM IN Discharge Instructions Diet Discharge Diet: No restrictions Activity Discharge Activity: Return to Normal Activity and May Not Drive Weight Bearing Status: Full weight bearing Follow Up Care Test Results: Test results from this visit will be discussed in further detail at your follow-up appointment, if applicable. Discharge Plan Admission Admit Date/Time: 03/11/23 20:04 Primary Reason for Your Visit: transient global amnesia Attending Provider: Vijay Juárez Primary Care Provider: Amisha Torrez Consulting Providers: Hai Naranjo ; Kenny Farr Discharge Orders/Prescriptions Prescriptions: Continued lisinopril 10 MG tablet 10 mg PO DAILY Qty: 30 0RF aspirin 81 mg Tablet,Delayed Release (Dr/Ec) 81 mg PO DAILY atorvastatin 80 mg tablet 80 mg PO QHS alendronate 35 mg tablet 35 mg PO DAILY mirtazapine 30 mg tablet 30 mg PO QHS Referrals / Follow Up: Amisha Torrez MD [Primary Care Provider] - Within 2 Weeks Disposition Disposition (needs filled in before D/C Order can be placed): Home, Self Care 03/13/23 1055<Electronically signed by Vijay Juárez DO>Vijay Juárez DO CC: Dr. Kenny Farr MD; Dr. Hai Naranjo DO; Dr. Amisha Torrez MD ~ Signed [facility] Work Phone: 1(967) 984-727505-07-[address] Farr [facility] March 12, 2023 8:58am Note Date/Time March 12, 2023 7:35am [facility] Medical Records Department [address] [place] [id number] Progress Note - Hospitalist 03/12/23 0732 MR#: [id number] Acct: [id number] Name: SHEELA TADEO Rep #:[id number] : 1945 77 From: Kenny Farr MD PCP: Dr. Amisha Torrez MD Status:ADM IN Location: [place] [id number] Reason for Visit Reason for Visit: Diagnoses Disorientation, unspecified (03/11/23) Subjective Subjective Patient is a 77-year-old lady admitted with transient confusion and slurred speech admitted to monitored bed for further management Objective Data Objective Data Vital Signs: Vital Signs Temp Pulse Resp BP Pulse Ox O2 Del Method 97.7 F L 66 18 128/85 H 96 Room Air 03/12/23 04:45 03/12/23 04:45 03/12/23 04:45 03/12/23 04:45 03/12/23 04:45 03/12/23 04:45 Oxygen Delivery Method Room Air Weight: 46.2 kg Body Mass Index (BMI) 17.4 Intake & Output: Intake and Output for Last 24 Hours 03/10/23 03/11/23 03/12/23 23:59 23:59 23:59 Intake Total 200 / 200 Balance 200 / 200 Lab / Micro Data Result Diagrams: 03/11/23 17:50 03/11/23 17:50 Labs: Laboratory Results - last 24 hr 03/11/23 17:50: WBC 7.0, RBC 4.85, Hgb 15.6 H, Hct 47.5 H, MCV 97.9, MCH 32.2 H,MCHC 32.8, RDW Std Deviation 47.3 H, RDW Coeff of [place] 13.2, Plt Count 267, MPV 8.9, Immature Gran % (Auto) 0.100, Neut % (Auto) 61.7, Lymph % (Auto) 27.8, Mcpherson% (Auto) 8.1, Eos % (Auto) 1.6, Baso % (Auto) 0.7, Absolute Neuts (auto) 4.3, Absolute Lymphs (auto) 1.95, Nucleated RBC % 0 03/11/23 17:50: PT 12.0, INR 0.9, APTT 26.6 03/11/23 17:50: Sodium 141, Potassium 3.9, Chloride 106, Carbon Dioxide 27.0, Anion Gap 8, BUN 21 H, Creatinine 1.12 H, Estim Creat Clear Calc 31.48, Est GFR (MDRD) Af Amer 61, Est GFR (MDRD) Non-Af 50 L, BUN/Creatinine Ratio 18.8, Glucose 116 H, Calcium 10.6 H, Troponin I High Sens 32 03/11/23 18:04: POC Glucose 110 H 03/11/23 20:15: Troponin I High Sens 29 03/11/23 23:20: Urine Color Yellow, Urine Clarity Clear, Urine pH 6.5, Ur Specific [place] 1.015, Urine Protein 15 H, Urine Glucose (UA) Normal, Urine Ketones Negative, Urine Occult Blood 10 H, Urine Nitrite Negative, Urine Bilirubin Negative, Urine Urobilinogen Normal, Ur Leukocyte Esterase 25 H, UrineRBC 0-5 SEEN, Urine WBC 0- 5 SEEN, Ur Squamous Epith Cells 0 SEEN, Urine Bacteria0 SEEN, Urine Mucus 0 SEEN 03/12/23 05:09: Triglycerides 88, Cholesterol 117, LDL Cholesterol 32, VLDL Cholesterol 18, HDL Cholesterol 67 Radiography Diagnostic Testing: Radiology Impression Brain CT 03/11/23 17:52 IMPRESSION: 1. No acute intracranial hemorrhage or mass effect. Electronically Signed: Mickey Jose (Brooks), at 18:08 EDT , ADDENDUM: 03/11/23 1816 IMPRESSION: 1. No acute intracranial hemorrhage or mass effect. N.B. : The above Results were Read Back by Mickey Jose (Brooks) to Rafat Azevedo MD, and understanding confirmed on 03/11/2023 18:09:49 (ET). Electronically Signed: Mickey Jose (Brooks), at 18:08 EDT , Head/Neck CTA 03/11/23 17:52 IMPRESSION: Negative CTA carotid and CTA brain. Electronically Signed: Mickey Jose (Brooks), at 18:19 EDT , ADDENDUM: 03/11/23 1833 IMPRESSION: Negative CTA carotid and CTA brain. N.B. : The above Results were Read Back by Mickey Jose (Brooks) to Rafat Azevedo MD, and understanding confirmed on 03/11/2023 18:26:49 (ET). Electronically Signed: Mickey Jose (Brooks), at 18:19 EDT , Chest X-Ray 03/11/23 18:30 IMPRESSION: Nonacute portable x-ray examination of the chest. Electronically Signed: Mickey Jose (Brooks), at 18:57 EDT , Physical Exam Narrative GENERAL: cooperative HEENT: Atraumatic; normocephalic EYES; Anicteric, Normal Conjunctiva NECK; supple, normal thyroid, RESPIRATORY: Diminished to auscultation CARDIOVASCULAR: Regular S1 S2, GI: soft, normoactive bowel sounds, : No Renal angle tenderness; EXTREMITIES: No edema, no clubbing, MUSCULOSKELETAL: no muscle wasting NEURO: Awake; no lateralizing signs. SKIN: No Rash PSYCH; Flat affect Assessment & Plan Assessment/Plan (1) Transient confusion: PLAN: Plan Patient is a 77-year-old lady admitted with transient confusion and slurred speech admitted to monitored bed for further management 1. Transient global amnesia ? Patient has been admitted to a monitored bed placed on every 4 neurochecks plan is for patient to undergo further evaluation with an MRI of the brain to rule out CVA. Patient is already on aspirin and atorvastatin was started on clopidogrel 2. Hypertension - Blood pressure controlled, home medications continued with dose adjustment as needed 3. Dyslipidemia -Patient is on statin therapy, continued at home dose 4. Osteoporosis ? Patient is on alendronate 5. Suspected dementia ? Patient to undergo assessment as outpatient by PCP 6. DVT prophylaxis - On enoxaparin Time spent in the patient's overall evaluation,decision-making process, review of diagnostic data, adjustment of management, discussion with other providers, nursing nursing and ancillary staff involved in patient's care documentation, 40Minutes Charges/Coding Visit Charges Inpatient E&M: 32485 Subs Hosp L2 03/12/23 0858 <Electronically signed by Kenny Farr MD> Cosigner Signature (if applicable): CC: ~ Signed [facility] Work Phone: 1(865) 982-358505-06-[address] Azevedo [facility] March 11, 2023 9:13pm Note Date/Time March 11, 2023 6:00pm [facility] Medical Records Department [address] [place] [address] Emergency Department Summary 03/11/23 MR#: [id number] Acct: [id number] Name: SHEELA TADEO Rep #:[id number] : 1945 77 From: Rafat Azevedo MD PCP: Dr. Amisha Torrez MD Status:ADM IN Location: [place] [address] HPI History of Present Illness Chief Complaint: Neuro S/Sx Informant: patient and family Narrative Narrative: History is per patient but more per her son who is with her when the events happened and is present now. This patient presents with strokelike symptoms. She denied prior stroke but hersons and [id number] states that she has had mini strokes and TIAs mostly with expressive aphasia. She has never had unilateral weakness. She has been seen evaluated and cleared for activity. She only blood thinner is a baby aspirin once a day. Patient was with the family at a game today. On the way home at about 330 she started to act differently. She was trying to get the lid off her water bottle and there is no lid. She was using a phone upside down and backwards and could not understand why it did not work. She was having a little trouble speaking. It sounds like her words were correct but they were slurred. It sounds like shehad more dysarthria than actual expressive aphasia but there may have been a component of both. She seemed a little bit unsteady although that has improved. These were out of character for her. [facility] Medical History HTN (hypertension) Macular degeneration Smoker TIA (transient ischemic attack) Home Medications lisinopril 10 mg tablet 10 mg PO DAILY #30 tabs 02/25/19 [Rx Last Taken 07/20/22] aspirin 81 mg tablet,delayed release 81 mg PO DAILY heart health 07/20/22 [History Last Taken 07/19/22] alendronate 35 mg tablet 35 mg PO DAILY 03/11/23 [History Last Taken Unknown] atorvastatin 80 mg tablet 80 mg PO QHS 03/11/23 [History Last Taken Unknown] mirtazapine 30 mg tablet 30 mg PO QHS 03/11/23 [History Last Taken Unknown] Allergy/AdvReac Type Severity Reaction Status Date / Time No Known Allergies Allergy Verified 03/11/23 20:38 Family History (Updated 03/11/23 @ 20:[address] Hai Naranjo DO) Other CVA (cerebral vascular accident) Surgical History History of cataract surgery Social History household members: other details: Lives alone Smoking Status: Light Smoker (<10/day) Tobacco: How many years used: 20 alcohol intake: never substance use type: does not use ROS ROS ED Constitutional Constitutional ED: Denies chills or fever(s) Eyes Eyes: Denies change in vision Cardiovascular Cardiovascular: Denies chest pain or palpitations Respiratory/Chest Respiratory/Chest: Denies cough or dyspnea Gastrointestinal Gastrointestinal: Denies nausea or vomiting Musculoskeletal Musculoskeletal: Denies myalgias Integumentary Denies rash Neurologic Neurologic: Reports other Details: See history of present illness Hematologic/Lymphatic Hematologic/Lymphatic: Denies easy bleeding or easy bruising Allergic/Immunologic Allergic/Immunologic ED: Denies urticaria EXAM Physical Exam Narrative Exam Narrative: Patient is awake alert. She is sitting in bed. She seems to have normal coordination of hands and legs. She is awake alert reasonably cooperative. HEENT shows no obvious weakness. No trauma. Eyes have normal range of motion. Normal visual field by confrontation. Neck shows no meningismus. I do not hear carotid bruit. Lungs are clear bilaterally and she is not hypoxic. Heart is regular. Appears to be sinus. Abdomen soft nontender Extremities show no edema or trauma. Neurologically she is awake and alert. She is oriented fully. But she is a little slow to answer questions at times. I sometimes have to ask her to do something twice before she will do it. She seems to be very distracted and havea little trouble at times interpreting what I am saying. This makes me wonder if there is a small component of receptive aphasia. Her speech is occasionally pausing and slurred but just mildly. But she does not say the wrong words. Shehas just mild dysarthria. She has sensation intact throughout but when I do simultaneous sensation on both sides she seems to not feel the left as much. But her coordination and strength is still intact there. See NIH stroke scale. Const Vital Signs: 03/11/23 17:45 03/11/23 17:52 03/11/23 18:21 Temperature 98.1 F Temperature Source Temporal Pulse Rate 81 73 Respiratory Rate 18 16 Blood Pressure 117/88 H 131/78 H Blood Pressure Mean 97 95 Pulse Ox 97 97 Oxygen Delivery Method Room Air Room Air Room Air 03/11/23 19:05 03/11/23 19:30 03/11/23 20:00 Temperature 97.9 F Temperature Source Temporal Pulse Rate 79 68 65 Respiratory Rate 16 18 18 Blood Pressure 112/89 H 127/67 H 114/85 H Blood Pressure Mean 96 87 94 Pulse Ox 98 96 97 Oxygen Delivery Method Room Air Room Air NIHSS NIHSS Initial: 1a Level of Consciousness: 0 1b LOC Questions (Score 2 if aphasic/stupor): 0 1c LOC Commands (Only score 1st attempt): 0 2 Best Gaze (If aphasic, use reflexive mvmts.): 0 3 Visual: 0 4 Facial Palsy: 0 5 Motor Arm Right (UN = amputation/fusion): 0 5 Motor Arm Left: 0 6 Motor Leg Right: 0 6 Motor Leg Left: 0 7 Limb ataxia (Only + if out of proportion): 0 8 Sensory (Aphasia/stupor=0 or 1, coma=2): 0 9 Best Language: 1 10 Dysarthria (mute, coma=2, intubated=UN): 1 11 Extinction and Inattention (only scored if +): 1 Total Score: 3 MDM MDM MDM Narrative Medical decision making narrative: Independent interpretation the CT shows no acute bleed. Final reading is no acute. Final reading the CTA is negative for any acute process. Patient CBC is normal other than minimally elevated hemoglobin. Coagulation studies are negative Electrolytes are normal other than minimal elevation of the creatinine to 1.12. Calcium is only slightly high at 10.6. I do not think this is likely the cause of her symptoms. Patient's recheck. Her symptoms are now resolved. I note that she actually wasevaluated for this in January of this year in July of last year. However, she had real symptoms today. They are now improved. She does have risks. One of the questions is should she be on dual platelet therapy. I discussed case with hospitalist. She will be admitted for further evaluation. Lab Data Labs: Laboratory Results - last 24 hr 03/11/23 03/11/23 03/11/23 17:50 17:50 17:50 WBC 7.0 RBC 4.85 Hgb 15.6 H Hct 47.5 H MCV 97.9 MCH 32.2 H MCHC 32.8 RDW Std Deviation 47.3 H RDW Coeff of Florence 13.2 Plt Count 267 MPV 8.9 Immature Gran % (Auto) 0.100 Neut % (Auto) 61.7 Lymph % (Auto) 27.8 Mcpherson % (Auto) 8.1 Eos % (Auto) 1.6 Baso % (Auto) 0.7 Absolute Neuts (auto) 4.3 Absolute Lymphs (auto) 1.95 Nucleated RBC % 0 PT 12.0 INR 0.9 APTT 26.6 Sodium 141 Potassium 3.9 Chloride 106 Carbon Dioxide 27.0 Anion Gap 8 BUN 21 H Creatinine 1.12 H Estim Creat Clear Calc 31.48 Est GFR (MDRD) Af Amer 61 Est GFR (MDRD) Non-Af 50 L BUN/Creatinine Ratio 18.8 Glucose 116 H Calcium 10.6 H Troponin I High Sens 32 POC Glucose 03/11/23 18:04 WBC RBC Hgb Hct MCV MCH MCHC RDW Std Deviation RDW Coeff of Florence Plt Count MPV Immature Gran % (Auto) Neut % (Auto) Lymph % (Auto) Mcpherson % (Auto) Eos % (Auto) Baso % (Auto) Absolute Neuts (auto) Absolute Lymphs (auto) Nucleated RBC % PT INR APTT Sodium Potassium Chloride Carbon Dioxide Anion Gap BUN Creatinine Estim Creat Clear Calc Est GFR (MDRD) Af Amer Est GFR (MDRD) Non-Af BUN/Creatinine Ratio Glucose Calcium Troponin I High Sens POC Glucose 110 H Radiography Diagnostic Testing: Clinical Impression(s) from Imaging Studies Brain CT 03/11/23 17:52 IMPRESSION: 1. No acute intracranial hemorrhage or mass effect. Electronically Signed: Mickey SrivastavasFroylan Jose, at 18:08 EDT , ADDENDUM: 03/11/23 1816 IMPRESSION: 1. No acute intracranial hemorrhage or mass effect. N.B. : The above Results were Read Back by Mickey Jose (Brooks) to Rafat Azevedo MD, and understanding confirmed on 03/11/2023 18:09:49 (ET). Electronically Signed: Mickey Jose (Brooks), at 18:08 EDT , Head/Neck CTA 03/11/23 17:52 IMPRESSION: Negative CTA carotid and CTA brain. Electronically Signed: Mickey Jose (Brooks), at 18:19 EDT , ADDENDUM: 03/11/23 1833 IMPRESSION: Negative CTA carotid and CTA brain. N.B. : The above Results were Read Back by Mickey Jose (Brooks) to Rafat Azevedo MD, and understanding confirmed on 03/11/2023 18:26:49 (ET). Electronically Signed: Mickey Jose (Brooks), at 18:19 EDT , Chest X-Ray 03/11/23 18:30 IMPRESSION: Nonacute portable x-ray examination of the chest. Electronically Signed: Mickey Jose (Brooks), at 18:57 EDT , Management Discussion w/another healthcare provider: Hospitalist Discharge Plan Dx/Rx/DC Orders Clinical Impression: TIA on medication, Transient confusion, History of high blood pressure Disposition Disposition: Acute Care Hospital [facility] Discharge Date/Time: 03/11/23 20:19 What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 relying on family and friends for transportation. She desires to retain driving privileges for leisure/social reasons and for home duties. She reports driving during the day most of the time, with the occasional night driving. She drives primarily on local city roads but occasionally on the freeway and in all weather conditions as needed. She reports driving an average of 4 days/week. She currently owns a 2017 VertiFlex 4 door SUV with automatic transmission. State: [place] License/Permit #: [id number] Expires: 2026 Restrictions: Right out rear view mirror 5 Yr. Violation HX: NA 5 Yr. MVA HX: NA Handicap Parking Placard: NO 1. Sheela Tadeo self report indicates an awareness of: Decreased vision in sunlight or at night . 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 ASSESSMENT: Hand dominance: Right Level of Function Relevant to I ADL, Community Mobility, and Driving: Right UE: Sufficient Left UE: Sufficient Selvage Machine Operator: Sufficient Right LE: Sufficient Left LE: Sufficient Sitting Balance: Sufficient Head / Neck: Sufficient Ambulation: Sufficient Transfers: Sufficient Loading of Device: NA ASSESSMENT OF SENSORIMOTOR FUNCTION: Compatible with Driving and with IADLs VISION SCREENING: Corrective Lenses: None Distant Acuity: Binocular: 20 / 50 Right: unable to see with central vision Left: 20 / 40 Nighttime Glare: Right: unable to see with central vision Left: 20 / 100 Color Perception: fail patient able to see 2 of 8 stimuli accurately Fusion: fail 2 cubes Lateral Phoria: Unable to assess secondary to impaired right central vision Vertical Phoria: Unable to assess secondary to impaired right central vision Depth Perception: Fail Angle Stereopsis (degree): 400 Functional Depth: TBA on road Contrast Sensitivity: severely impaired bilaterally Peripheral Vision: Within legal limits for driving Right Eye: Acknowledged all stimuli. Left Eye: Acknowledged all stimuli. Pursuits: WNL Saccades: WNL Convergence: WFL Nystagmus: Not Apparent Diplopia: No complaints Strabismus: No Cataracts: No Glaucoma: No. Other Eye Conditions / Diseases Reported: Macular degeneration in the right eye. ASSESSMENT OF VISUAL FUNCTION: Marginal for Driving in all driving scenarios and adequate with IADLs. Patient with impaired contrast sensitivity, night time glare and depth perception. Patient does not meet the state restriction for night time driving and should refrain from driving at night unlessemergent. Caution on uneven surfaces due to depth perception. Non glare lighting in the home for optimal vision during low light times of day. Assure adequate lighting in stairwells and at night timefor safety. Remove all tripping hazards including throw rugs for safety. COGNITIVE / PERCEPTUAL ASSESSMENT: SHORT BLESSED TEST Short Blessed Test 1. What Year Is It Now?: Correct 2. What Month Is It Now?: Correct 3. What Time is it? (WIthin 1 hour): Correct 4. Count Aloud Backwards 20 to 1 (Errors): 0 5. Months of the Year in Reverse Order (Errors): 0 6. Memory Phrase (Errors) : 0 Short Blessed Final Score: 0 Short Blessed Test Scorin-8; Normal to minimal impairment 9-19; Moderate impairment 20-28; Severe impairment [email or web address] Immediate Recall: WNL @ 6/6 digits Visual Scanning/Attention: [place] Making Part A (sec): 58 sec [place] Making Part B (sec): 207 sec 50th percentile norm for age group: 70-79; Part A: 80 seconds, Part B: 196 seconds Motor Free Visual Perception Test: MVPT Total Score: 35 MVPT Processing time (seconds): 6.5 Norms: 70-80 y/o: Raw Score 25-35; Processing Time 4.5-7.1 seconds +/- .5 seconds Visual Inattention / Unilateral Neglect: Not Apparent ASSESSMENT OF COGNITIVE / PERCEPTUAL FUNCTION: Compatible with Driving and adequate with IADLs [place] Opener Simulator: Simple Brake Reaction Time: Average Distance: 67 feet (Normal = 60 feet) Utilized right foot pedal operation Threat Recognition (complex): 50% (Normal = 50%) Traffic / Hazardous Situation: Patient responded to all scenarios but did not respond accurately toall scenarios. She tended to brake for avoidance of conflict as opposed to swerving when needed. Patient demonstrated mild difficulty with the simulator which is common with older persons. Driving Knowledge Road Sign Recognition: Pass 100% Rules of the Road: Pass 90% Education: Education Learning Preferences: Demonstration, Explanation Barriers: Visual Deficit Learning/educational needs: Safety, Plan of Care Education Provided: Yes, see treatment interventions for education provided Education Provided To: Patient Education Mode/Type: Demonstration, Explanation/Discussion Response to Education/Teach Back: States/Identifies, Return Demonstration TREATMENT: Evaluation Self-Retirement Management: 1: Educated on safety throughout the course of the assessment 2: non glare lighting in the home for optimal vision during low light times of day 3: remove all tripping hazards including throw rugs from walkways 4: Assure adequate lighting in stairwells and night lights for safety due to decreased depth perception and contrast sensitivity Skilled Intervention: Skilled judgment in the selection of proper modification for activity of daily living/home management based on clinical presentation, deficits, and needs. Reviewed patient specific diagnosis in relation to activities of daily living/home management. Activity progression based on professional judgement. Community /Work Re-integration: Skilled Intervention: Community mobility: Instructed in safe transfers in/out of simulated vehicle to prevent falls. Reaction time activities instructed and performed important for not only driving but fall prevention. 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 Due to the complex nature of the safe operation of a motor vehicle, and considering the demands of integrating changing environmental conditions, and visual, cognitive, and physical skills, successful completion of this program is not a guarantee of safe driving in the future. ASSESSMENT OF INSTRUMENTAL ADL AND COMMUNITY MOBILITY: Sheela Tadeo presents with the diagnosis of CVA. She presents with impairments of visual deficits especially with the right eye. She has impaired contrast sensitivity, depth perception and night time glare acuity, mildly slower reaction timesand divided attention. She may benefit from skilled occupational therapy services to further assesssafety behind the wheel of a car with an on the road assessment. RECOMMENDATIONS: ADL/IADL Recommendations: Non glare lighting in the home for optimal vision during low light times of day. Remove all tripping hazards from walkways. Assure adequate lighting in stairwells and night lights for safety when dark. Driving Recommendations: CONTINUE WITH TREATMENT - Probable restriction 1: No night driving. Williamson's Visual Field Exam Requested: No Recommended Complete Eye Exam: No Prognosis: Good Good due to: current objective clinical presentation Goals for Episode of Care created on 02/15/23 through 05/16/23 Patient will demonstrate understanding of safety issues in the home and/or community with assistance as recommended for instrumental activities of daily living , community mobility, and driving Planned Interventions, Frequency, and Duration: Current Frequency: 1 visit Duration: 1 visit Total Number of Visits Planned: 2 Patient to be see for Self-jail management (18901), Opener rehab evaluation, Community / Work Reintegration PLAN FOR NEXT VISIT: behind the wheel on the road assessment Patient demonstrates good understanding of plan of care and treatment. The above goals and plan of care were discussed and agreed upon by patient/family. Billing: Evaluation - Moderate Complexity (09971) Self Care / Home Management (23514): 1:1 time: 30 minutes (2 units: 23-37 mins) Community /Work Re-integration (06173): 1:1 time: 45 minutes (3 units: 38-52 mins) Total time: 105 minutes DAMARIS Ramírez, CDI/PD Opener Filter Tank Tender Helper Head documented in this encounterLima [facility]03-23-2023 NoteHNO ID: [id number] Author: Chiquis Haider MD Service: ? Author Type: Physician Type: Progress Notes Filed: 01/26/2023 11:41 AM Note Text: MRIMRA of brain was reviewed with the neuro-radiologist at [facility]: severe bilateral white matter disease. No micro-bleeds. MRA of brain and neck are [facility]Northern [facility]23 History of Present illness Narrative* Chiquis Haider MD - 01/26/2023 11:40 AM EDT MRIMRA of brain was reviewed with the neuro-radiologist at [facility]: severe bilateral white matter disease. No micro-bleeds. MRA of brain and neck are normal * Chiquis Haider MD - 01/25/2023 11:00 AM EDT [facility] Initial Visit Consultation is requested by: SELF PCP: Alonso Obando [address] [place] [address] [place] [address] CEREBROVASCULAR HISTORY Sheela Tadeo is a 77 year old female, with known history of migraine, adjustment disorder, who was referred to the stroke clinic to assess for the history of TIA and severe white matter disease in the MRI. Around 3 years ago she a transient episode of slurred speech associated with confusion. At that, she underwent MRI brain that showed tiny acute stroke in the left parietal white matter and severe white matter disease. She was also found to have hypertension and was discharged home on Aspirin and BP medication. Unfortunately, patient been poorly compliant with both medication. She recurrence of the valdemar symptoms in the last six months; and last episode was 10 days ago. She had repeat MRI in both event which basically showed the severe white matter disease. MRA per my review was normal; and no micro-bleeds Review of system: Mild forgetfulness noted by the family but is not progreessive Stroke Event Information Do you have any planned upcoming surgeries or dental procedures? No RN completing documentation PAST MEDICAL HISTORY Diagnosis Date Abdominal pain, unspecified site Diverticulosis of colon (without mention of hemorrhage) Hemorrhage of gastrointestinal tract, unspecified Kidney stones Migraine without aura PAST SURGICAL HISTORY Procedure Laterality Date COLONOSCOPY FLX DX W/COLLJ SPEC WHEN PFRMD 06/05/2007 Colonoscopy XCAPSL CTRC RMVL INSJ IO LENS PROSTH W/O ECP 2006 Cataract Removal, bilat FAMILY HISTORY Problem Relation Age of Onset None Father Diabetes Mother Social History Tobacco Use Smoking status: Passive Smoke Exposure - Never Smoker Tobacco comments: 10/ wk Substance Use Topics Alcohol use: Yes Comment: social MEDICATIONS Current Outpatient Medications Medication Sig albuterol HFA (PROAIR HFA) 90 mcg/actuation inhaler Inhale 2 Puffs as instructed every 6 hours as needed. Ibandronate (BONIVA) 150 mg ORAL tablet Take 1 tablet by mouth once every month. IN THE MORNING WITH A FULL GLASS OF WATER, ON AN EMPTY STOMACH, AND DO NOT TAKE ANYTHING ELSE BY MOUTH OR LIE DOWN FORTHE NEXT 30 MINUTES. sumatriptan (IMITREX) 50 mg ORAL tablet Take 1 tablet by mouth as needed. sertraline (ZOLOFT) 100 mg ORAL tablet Take one(1) tablet daily. THERAPEUTIC MULTIVITAMIN TAB Take one(1) tablet daily. calcium carbonate/vitamin d3(CALCIUM 600 + D 600 MG-125 UNIT TAB) Take one(1) tablet twice daily. No current facility-administered medications for this visit. ALLERGIES ALLERGIES No Known Allergies PHYSICAL EXAMINATION BP 151/101 (BP Site: Right Arm, BP Position: Sitting, BP Cuff Size: Regular Adult) Pulse 90 Ht 162.6 cm (5' 4) Wt 45.4 kg (100 lb) BMI 17.16 kg/m General: Well-developed, well-nourished, in no acute distress. HEENT: Normocephalic, atraumatic. Sclerae anicteric. Oropharynx clear. Extremities: No edema, cyanosis, or clubbing. 2+ dorsalis pedis pulses bilaterally. Skin: No rash or ecchymoses. Neurological: Awake, alert, oriented to person, place, and time. Speech fluent, no dysarthria. Naming, repetition, recall, comprehension. Good attention Cranial Nerves: PERRL, extraocular movements intact without nystagmus. Visual valdovinos full. Facial sensation and movements normal and symmetric. Palate elevates equal bilaterally. Tongue midline. Trapezius strength 5/5 bilaterally. Motor: Normal bulk and tone. Strength 5/5 throughout. No pronator drift or tremor. Sensation: Intact light touch, pinprick, temperature, proprioception, and vibration. Coordination: Rapid alternating movements symmetric bilaterally. Hsxals-og-rupk, ndij-kk-bpjf without dysmetria bilaterally. Gait: Narrow-based, normal spaced and stable without assistance. Tandem gait is stable. LABS Cholesterol: No results found for: CHOL LDL Chol, [place] (mg/dL) Date Value 10/15/2010 104 No results found for: HDL No results found for: TG Diabetes: No results found for: HBA1C IMAGING MRI done in 2018, 2021 and 2022 were reviewed by: mainly severe bilateral white matter abnormal signal Patient Entered Questionnaires PROMIS/NeuroQoL Score Percentiles Percentiles provide an indication of how a patient's score ranks in relation to the [place] general population. > 31st percentile is within normal limits or better * < 31st percentile is at least SD worse than population, which may be clinically relevant < 16th percentile is at least 1 SD worse than population and warrants attention Depression Screening: PHQ-9 Scores: PHQ-9 Self-Harm (Item 9) Response: 0 - 9 No to Mild depression 0 - Not at all 10 - 14 Moderate depression 1 - Several Days > 15 Severe depression 2 - More than half the days 3 - Nearly every day Stroke Mechanism and Scales IMPRESSION Bilateral severe white matter disease in MRIs in the setting of recent mild hypertension. In other words, the severe white matter changes is un proportional to the recent and mild hypertension. Otheretiologies, such as, inflammaging must be entertained. The X3 slurred speech and confusion she had in the last 3 years are possibly related to new white matter lesions Migraine headache Chronic smoker Adjustment disorder PLAN Refer to Dr. Jaylon Newberry for second opinion to assess for inflammaging causing the white matter disease Continue Aspirin Continue BP medications Follow up with the [facility] for control of hypertension Advised compliance with medications (family members will now help with compliance of medications Advised to quit tobacco Advised to avoid Imitrex Instructed on all signs and symptoms of stroke Refer to OT to assess safety of driving PABLO panel and RF EEG to assess for the confusion episode Follow up in my clinic in 3 months Medical Decision Making: Medical Decision Making Level: 1 - N/A I spent a total of 65 minutes on the date of service which included preparing to see the patient, [id number] patient care, completing clinical documentation, obtaining and/or reviewing separately obtained history, performing a medically appropriate examination, counseling and educating the patient/family/caregiver, ordering medications, tests, or procedures, independently interpreting results (not separately reported), and communicating results to the patient/family/caregiver SIGNATURE Chiquis Haider MD CC SELF Alonso Obando [address] [place] [address] [place] [address] documented [facility] NoteHNO ID: [id number] Author: Chiquis Haider MD Service: ? Author Type: Physician Type: Progress Notes Filed: 07/07/2023 9:46 AM Note Text: [facility] Initial Visit Consultation is requested by: SELF PCP: Alonso Obando [address] [place] [address] [place] [id number] CEREBROVASCULAR HISTORY Sheela Tadeo is a 77 year old female, with known history of migraine, adjustment disorder, who was referred to the stroke clinic to assess for the history of TIA and severe white matter disease in the MRI. Around 3 years ago she a transient episode of slurred speech associated with confusion. At that, she underwent MRI brain that showed tiny acute stroke in the left parietal white matter and severe white matter disease. She was also found to have hypertension and was discharged home on Aspirin and BP medication. Unfortunately, patient been poorly compliant with both medication. She recurrence of the valdemar symptoms in the last six months; and last episode was 10 days ago. She had repeat MRI in both event which basically showed the severe white matter disease. MRA per my review was normal; and no micro-bleeds Review of system: Mild forgetfulness noted by the family but is not progreessive Stroke Event Information Do you have any planned upcoming surgeries or dental procedures? No RN completing documentation PAST MEDICAL HISTORY Diagnosis Date Abdominal pain, unspecified site Diverticulosis of colon (without mention of hemorrhage) Hemorrhage of gastrointestinal tract, unspecified Kidney stones Migraine without aura PAST SURGICAL HISTORY Procedure Laterality Date COLONOSCOPY FLX DX W/COLLJ SPEC WHEN PFRMD 06/05/2007 Colonoscopy XCAPSL CTRC RMVL INSJ IO LENS PROSTH W/O ECP 2006 Cataract Removal, bilat FAMILY HISTORY Problem Relation Age of Onset None Father Diabetes Mother Social History Tobacco Use Smoking status: Passive Smoke Exposure - Never Smoker Tobacco comments: 10/ wk Substance Use Topics Alcohol use: Yes Comment: social MEDICATIONS Current Outpatient Medications Medication Sig albuterol HFA (PROAIR HFA) 90 mcg/actuation inhaler Inhale 2 Puffs as instructed every 6 hours as needed. Ibandronate (BONIVA) 150 mg ORAL tablet Take 1 tablet by mouth once every month. IN THE MORNING WITH A FULL GLASS OF WATER, ON AN EMPTY STOMACH, AND DO NOT TAKE ANYTHING ELSE BY MOUTH OR LIE DOWN FOR THE NEXT 30 MINUTES. sumatriptan (IMITREX) 50 mg ORAL tablet Take 1 tablet by mouth as needed. sertraline (ZOLOFT) 100 mg ORAL tablet Take one(1) tablet daily. THERAPEUTIC MULTIVITAMIN TAB Take one(1) tablet daily. calcium carbonate/vitamin d3(CALCIUM 600 + D 600 MG-125 UNIT TAB) Take one(1) tablet twice daily. No current facility-administered medications for this visit. ALLERGIES ALLERGIES No Known Allergies PHYSICAL EXAMINATION BP 151/101 (BP Site: Right Arm, BP Position: Sitting, BP Cuff Size: Regular Adult) Pulse 90 Ht 162.6 cm (5' 4) Wt 45.4 kg (100 lb) BMI 17.16 kg/m? General: Well-developed, well-nourished, in no acute distress. HEENT: Normocephalic, atraumatic. Sclerae anicteric. Oropharynx clear. Extremities: No edema, cyanosis, or clubbing. 2+ dorsalis pedis pulses bilaterally. Skin: No rash or ecchymoses. Neurological: Awake, alert, oriented to person, place, and time. Speech fluent, no dysarthria. Naming, repetition, recall, comprehension. Good attention Cranial Nerves: PERRL, extraocular movements intact without nystagmus. Visual valdovinos full. Facial sensation and movements normal and symmetric. Palate elevates equal bilaterally. Tongue midline. Trapezius strength 5/5 bilaterally. Motor: Normal bulk and tone. Strength 5/5 throughout. No pronator drift or tremor. Sensation: Intact light touch, pinprick, temperature, proprioception, and vibration. Coordination: Rapid alternating movements symmetric bilaterally. Ipduha-et-dhex, xipr-bx-nwcq without dysmetria bilaterally. Gait: Narrow-based, normal spaced and stable without assistance. Tandem gait is stable. LABS Cholesterol: No results found for: CHOL LDL Chol, [place] (mg/dL) Date Value 10/15/2010 104 No results found for: HDL No results found for: TG Diabetes: No results found for: HBA1C IMAGING MRI done in 2018, 2021 and 2022 were reviewed by: mainly severe bilateral white matter abnormal signal Patient Entered Questionnaires PROMIS/NeuroQoL Score Percentiles Percentiles provide an indication of how a patient's score ranks in relation to the [place] general population. > 31st percentile is within normal limits or better * < 31st percentile is at least ? SD worse than population, which may be clinically relevant < 16th percentile is at least 1 SD worse than population and warrants attention Depression Screening: PHQ-9 Scores: PHQ-9 Self-Harm (Item 9) Response: 0 - 9 No to Mild depression 0 - Not at al (more content not included)...[facility]03-10-[address] Munguia [facility] January 13, 2023 6:27pm Note Date/Time January 13, 2023 5:0 1pm [facility] Medical Records Department [address] [place] [address] Emergency Department Summary 01/13/23 MR#: [id number] Acct: [id number] Name: SHEELA TADEO Rep #:[id number] : 1945 77 From: Constantino Munguia MD PCP: Dr. Amisha Torrez MD Status:ADM ELLA Location: [place] [address] 1 HPI History of Present Illness Chief Complaint: Neuro S/Sx Detail of Chief Complaint: Symptoms similar to prior stroke Informant: family Limited: other (Patient not certain why she is here) Onset/Context/Timing Onset: - (Last known well January 11 at 11:45 AM) Context: - (Unknown) Timing: Continuous (Presumed) Quality and Location: Positive for Expressive Aphasia Onset: Last known well January 11 at 11:45 AM Current Severity: Mild Maximum Severity: Mild Worsened by: Nothing Relieved by: Not Associated Symptoms Associated Symptoms: Negative for Headache, Nausea, Vomiting or Chest Pain Narrative Narrative: Patient is a 77-year-old woman who lives alone. She has history of prior strokewith expressive aphasia. She is on aspirin and lisinopril. Family brought her to the emergency department because of her difficulty finding her words. Daughter states this is similar to when she had a prior stroke. Patient denies headache. Patient denies double vision, blurred vision loss of vision. Patient denies numbness or tingling or motor dysfunction upper or lowerextremities. Patient denies problems with swallowing. Patient denies problems with coordination or Prior similar symptoms: Yes Recent Illness/Hospitalization: No PFSH PFSH Medical History HTN (hypertension) Macular degeneration Smoker TIA (transient ischemic attack) Home Medications lisinopril 10 mg tablet 10 mg PO DAILY #30 tabs 02/25/19 [Rx Last Taken 07/20/22] aspirin 81 mg tablet,delayed release 81 mg PO DAILY heart health 07/20/22 [History Last Taken 07/19/22] Allergy/AdvReac Type Severity Reaction Status Date / Time No Known Allergies Allergy Verified 10/11/22 13:05 Surgical History History of cataract surgery Social History household members: other details: Lives alone Smoking Status: Current every day smoker tobacco type: cigarettes alcohol intake: never substance use type: does not use ROS ROS ED Review of Systems ROS Unobtainable: due to mental status and other Details: Per HPI narrative. Limited to the fact the patient does not know why she is here and is having trouble finding words EXAM Physical Exam Const Vital Signs: 01/13/23 16:42 01/13/23 16:52 01/13/23 16:52 Temperature 96.7 F L Temperature Source Temporal Pulse Rate 106 H 70 Respiratory Rate 16 16 Blood Pressure 143/109 H 119/108 H Blood Pressure Mean 120 111 Pulse Ox 99 97 Oxygen Delivery Method Room Air Room Air Room Air Positive well nourished and well developed General Appearance ED: well developed and NAD HEENT Reports TM's clear and moist mucous membranes atraumatic Nose: other Other Details: Normal Tympanic Membrane ED: Yes TM's clear Eyes PERRL and EOMs intact bilaterally Eyes Narrative: There is no nystagmus. There is no APD. General Eye ED: Negative for pale conjunctiva or scleral icterus Neck no lymphadenopathy, supple and no JVD Chest Wall inspection of chest normal and palpation of chest normal Resp normal respiratory effort and clear to auscultation bilaterally Cardio Rate: regular rate Rhythm: regular rhythm Heart Sounds: S1 normal and S2 normal GI normal to inspection, nondistended, normoactive bowel sounds, soft to palpation,non-tender, non-distended and no masses GI Narrative: There is no palpable pulsatile mass. Remi bruit. Back/Spine no CVA tenderness Neuro No oriented x3, CN's II-XII intact bilaterally and no sensory deficits noted Danna Coma Scale: document GCS findings Spontaneous Obeys Commands Confused 14 Sensorium / Orientation: alert, oriented to person and oriented to place; Negative for oriented to time Speech: speech normal Gait (Neuro): normal gait Psych mental status grossly normal Skin no wounds General Skin Exam: Negative for jaundice Lesions: no lesions Rashes: no rashes NIHSS NIHSS Initial: 1a Level of Consciousness: 0 1b LOC Questions (Score 2 if aphasic/stupor): 1 1c LOC Commands (Only score 1st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
--- NOTE | 2025-10-16 18:33 | CT_ITS ---
PROCEDURE: STROKE BRAIN/HEAD WITHOUT CONT; STROKE CTA HEAD AND NECK W/CON 10/16/2025 REASON FOR EXAM: NEURO DEFICIT, ACUTE, STROKE SUSPECTED TECHNIQUE: Procedure Code: CTBR.ST; CTCTA.ST.HN Modality: CT Procedure: STROKE BRAIN/HEAD WITHOUT CONT; STROKE CTA HEAD AND NECK W/CON Coronal and Sagittal reconstruction series were provided. One or more dose reduction techniques were used (e.g., Automated exposure control, adjustment of the mA and/or kV according to patient size, use of iterative reconstruction technique. RADIATION DOSE SUMMARY: CTDlvol: 44 mGy DLP: 112 mGycm COMPARISON: 03/13/2023. FINDINGS: Moderate global parenchymal atrophy. Periventricular white matter hypodensity likely representing severe chronic microvascular ischemia. No evidence of acute hemorrhage or infarction. No extra-axial blood or fluid collections. The paranasal sinuses and mastoid air cells are clear. The calvarial vault and skull base are intact. The bilateral common carotid arteries are patent. Atherosclerosis of the bilateral carotid bulbs and proximal internal carotid arteries without hemodynamically significant stenosis. The cervical vertebral arteries are patent. The carotid siphons, anterior cerebral, anterior communicating, middle cerebral, and posterior cerebral arteries are patent. The superior cerebellar, anterior inferior cerebellar, and posterior inferior cerebellar arteries are patent. Emphysematous changes of the lung apices. Subcentimeter thyroid cysts. CT/STROKE Brain/Head without Cont IMPRESSION: Moderate global cerebral atrophy with severe chronic microvascular ischemic natividad nges. No CT evidence of acute hemorrhage or acute infarction. Patent intracranial and extracranial carotid and vertebral arteries without hem odynamically significant stenosis. No acute intracranial abnormality detected. Critical results were communicated to Quiana at 6:55 p.m.. Reading Location[facility]
--- NOTE | 2025-10-16 18:33 | EKG12_ITS ---
Test Reason : DYSRHYTHMIA Blood Pressure : */* mmHG Vent. Rate : 69 BPM Atrial Rate : 69 BPM P-R Int : 146 ms QRS Dur : 82 ms QT Int : 382 ms P-R-T Axes : 83 76 73 degrees QTcB Int : 409 ms Sinus rhythm with Premature atrial complexes Otherwise normal ECG Confirmed by LEYDI BETANCOURT, DANIELITO ([id number]), editor sound JENNIFER WILLIAM ([id number]) on 10/20/2025 6:30:37 AM Referred By: Confirmed By: DANIELITO HOLLEY MD
--- NOTE | 2025-10-16 18:35 | CT_ITS ---
PROCEDURE: STROKE BRAIN/HEAD WITHOUT CONT; STROKE CTA HEAD AND NECK W/CON 10/16/2025 REASON FOR EXAM: NEURO DEFICIT, ACUTE, STROKE SUSPECTED TECHNIQUE: Procedure Code: CTBR.ST; CTCTA.ST.HN Modality: CT Procedure: STROKE BRAIN/HEAD WITHOUT CONT; STROKE CTA HEAD AND NECK W/CON Coronal and Sagittal reconstruction series were provided. One or more dose reduction techniques were used (e.g., Automated exposure control, adjustment of the mA and/or kV according to patient size, use of iterative reconstruction technique. RADIATION DOSE SUMMARY: CTDlvol: 44 mGy DLP: 112 mGycm COMPARISON: 03/13/2023. FINDINGS: Moderate global parenchymal atrophy. Periventricular white matter hypodensity likely representing severe chronic microvascular ischemia. No evidence of acute hemorrhage or infarction. No extra-axial blood or fluid collections. The paranasal sinuses and mastoid air cells are clear. The calvarial vault and skull base are intact. The bilateral common carotid arteries are patent. Atherosclerosis of the bilateral carotid bulbs and proximal internal carotid arteries without hemodynamically significant stenosis. The cervical vertebral arteries are patent. The carotid siphons, anterior cerebral, anterior communicating, middle cerebral, and posterior cerebral arteries are patent. The superior cerebellar, anterior inferior cerebellar, and posterior inferior cerebellar arteries are patent. Emphysematous changes of the lung apices. Subcentimeter thyroid cysts. CT/STROKE CTA Head AND Neck W/Con IMPRESSION: Moderate global cerebral atrophy with severe chronic microvascular ischemic natividad nges. No CT evidence of acute hemorrhage or acute infarction. Patent intracranial and extracranial carotid and vertebral arteries without hem odynamically significant stenosis. No acute intracranial abnormality detected. Critical results were communicated to Quiana at 6:55 p.m.. Reading Location: [facility]
[2025-10-16 18:55] LABS: Hematocrit 47.3 % (37-47); Hemoglobin 15.4 g/dL (12.0-15.0); Immature Granulocytes Count 0.030 X10^3/uL (0.0-0.0); Mean Corp Hgb Conc 32.6 g/dL (32-36); Mean Corpuscular Volume 95.7 fL (81-99); Mean Platelet Vol. 9.2 fl (6.2-12.0); NRBC Flagged by Analyzer 0 % (0-5); Platelet Count 276 K/mm3 (150-450); RBC Distribution Width CV 13.7 % (11.6-14.6); RBC Distribution Width SD 48.4 fl (35.1-43.9); Red Blood Count 4.94 M/mm3 (4.2-5.4); White Blood Count 8.7 K/mm3 (4.4-11.0)
[2025-10-16 18:59] LABS: Prothrombin Time (Protime)PT. 12.5 SECONDS (11.7-14.9)
[2025-10-16 19:00] LABS: Partial Thromboplast Time 22.2 Seconds (24.1-36.2)
[2025-10-16 19:18] LABS: Anion Gap 14 (5-15); BUN 17 mg/dL (4-19); BUN/Creat Ratio 18.8 RATIO (10-20); Calcium,Total 10.8 mg/dL (7.6-11.0); Carbon Dioxide 27.2 mmol/L (21.0-32.0); Chloride 100 mmol/L (98-108); Estimated Creatinine Clearance 30.49 ml/min (50-250); Glucose 130 mg/dL (70-99); Potassium 3.8 mmol/L (3.3-5.1)
--- NOTE | 2025-10-16 19:34 | ED.VIS.STROK ---
HPI History of Present Illness Chief Complaint: Stroke Alert Narrative Narrative: Patient is a 79-year-old female presenting to the emergency department for possible stroke. Patient has a past medical history of CVA, hypertension and dementia. Patient arrives with son and [id number]. States that at 3:30 PM her granddaughter called her and was planning on picking her up to go shopping. When they got there around 5:30 PM patient was very confused and did not remember speaking to the granddaughter. They state that this has happened before and they think it was TIAs. Patient is unable to provide history due to confusion. Stroke team was called by nursing staff on patients arrival prior to my evaluation of the patient. She is not on OAC. [facility] Medical History Tobacco use CKD (chronic kidney disease), stage II Anxiety and depression HLD (hyperlipidemia) Smoker HTN (hypertension) TIA (transient ischemic attack) Macular degeneration Home Medications ?Medication ?Instructions ?Recorded ?Last Taken ?Type lisinopril 10 mg tablet 10 mg PO DAILY #30 tabs 02/25/19 07/20/22 Rx aspirin 81 mg tablet,delayed 81 mg PO DAILY heart health 07/20/22 07/19/22 History release alendronate 35 mg tablet 35 mg PO DAILY 03/11/23 Unknown History atorvastatin 80 mg tablet 80 mg PO QHS 03/11/23 Unknown History mirtazapine 30 mg tablet 30 mg PO QHS 03/11/23 Unknown History calcium carbonate (Calcium 500) 500 mg PO DAILY 10/25/23 Unknown History Allergy/AdvReac Type Severity Reaction Status Date / Time No Known Allergies Allergy Verified 10/16/25 18:53 Family History Mother Diabetes Father CVA (cerebral vascular accident) Surgical History History of cataract surgery Social History household members: other details: Lives alone Smoking Status: Unknown if ever smoked Tobacco: How many years used: 20 alcohol intake: never substance use type: does not use ROS ROS ED ROS Narrative see HPI, obtained from family given altered mental status EXAM Physical Exam Narrative Exam Narrative: Vital signs: Reviewed General: Alert and orientedx2. No acute distress. Nontoxic. HEENT: Head is normocephalic and atraumatic, sinuses nontender, pupils equal round and reactive. EOMI. 2mm bilaterally. Nares are patent. Oropharynx and throat exams normal. Neck: Supple without lymphadenopathy nontender Cardiovascular: Regular rate and rhythm, no murmurs. No rubs or gallops. Normal S1 and S2 Respiratory: Clear to auscultation bilaterally. No wheezes, rales, rhonchi Abdominal: Soft and nontender. Normal bowel sounds. No guarding or rebound. Nonsurgical abdomen Extremities: No tenderness. No bruising. Normal range of motion. Normal sensation. Skin: No rash or redness. The rest of the physical exam is unremarkable Const Vital Signs: 10/16/25 18:23 10/16/25 18:33 10/16/25 18:43 Temperature 98 F 97.6 F L Temperature Source Temporal Oral Pulse Rate 85 Respiratory Rate 13 Blood Pressure 180/123 H Blood Pressure Mean 142 Pulse Ox 99 Oxygen Delivery Method Room Air Room Air 10/16/25 19:22 10/16/25 20:00 10/16/25 21:00 Temperature 97.8 F Temperature Source Oral Pulse Rate 86 73 74 Respiratory Rate 22 H 20 H 24 H Blood Pressure 172/129 H 155/112 H 163/95 H Blood Pressure Mean 143 126 117 Pulse Ox 96 96 96 Oxygen Delivery Method Room Air Room Air Room Air 10/16/25 22:00 10/16/25 23:05 Temperature 98.7 F Temperature Source Pulse Rate 73 74 Respiratory Rate 23 H 17 Blood Pressure 141/89 H 147/86 H Blood Pressure Mean 106 106 Pulse Ox 96 97 Oxygen Delivery Method Room Air [facility] MDM MDM Narrative Medical decision making narrative: Patient is a 79-year-old female presenting to the emergency department as a stroke alert. Patient was seen and examined in triage immediately after stroke team was called. Patient resting in chair comfortably in no acute distress. On my evaluation of the patient, she has an NIH of 0. With the patient's confusion and last known well with abrupt sudden change to mental status, stroke team was kept. She was sent to CT for CT the brain with CTA. Doubt true stroke given the patient has no focal neurologic symptoms. Differential includes but is not limited to: Stroke, metabolic encephalopathy, electrolyte imbalance Evaluated by stroke neurologist, EKG shows sinus rhythm with PACs. No ischemic changes. CBC with no leukocytosis and hemoglobin of 15.4. BMP with no significant abnormalities. Initial troponin of 57, reflex of 53, no significant delta change. No baseline to compare to. Patient is not having chest pain or shortness of breath and EKG is unremarkable for any ischemic changes. CT of the brain shows no acute hemorrhage or acute infarction. There is moderate global cerebral atrophy with chronic severe microvascular ischemic changes. CT of the head and neck shows patent arteries without hemodynamically significant stenosis. Patient, son and [id number] were updated on the imaging findings. Additional history was now obtained and they state that she lives at home alone. Patient is unsafe to return home given the fact that she is alone and is clearly confused on discussion. I did bring up possible placement after this hospitalization which son states he is already discussing with his sister. Urinalysis still pending at time of admission to hospitalist, Dr. Sneed for further workup. Clinical impression: Altered mental status Elevated troponin History & Record Review Discussion w/independent historian: Patient and Family Lab Data Attestation: I reviewed the patient's lab results. Labs: Laboratory Results - last 24 hr 10/16/25 10/16/25 10/16/25 18:35 21:00 21:37 WBC 8.7 RBC 4.94 Hgb 15.4 H Hct 47.3 H MCV 95.7 MCH 31.2 MCHC 32.6 RDW Std Deviation 48.4 H RDW Coeff of [place] 13.7 Plt Count 276 MPV 9.2 Immature Gran % (Auto) 0.300 Neut % (Auto) 72.6 H Lymph % (Auto) 17.3 L [place] % (Auto) 8.0 Eos % (Auto) 1.0 Baso % (Auto) 0.8 Absolute Neuts (auto) 6.3 Absolute Lymphs (auto) 1.51 Nucleated RBC % 0 PT 12.5 INR 0.9 APTT 22.2 L Sodium 141 Potassium 3.8 Chloride 100 Carbon Dioxide 27.2 Anion Gap 14 BUN 17 Creatinine 0.90 Estim Creat Clear Calc 30.49 L Est GFR (MDRD) Non-Af 65 BUN/Creatinine Ratio 18.8 Glucose 130 H Calcium 10.8 Troponin T High Sens 57 H* Troponin T Hi Sens 2 Hr 53 H Urine Color Yellow Urine Clarity Clear Urine pH 6.0 Ur Specific Tucker 1.010 Urine Protein 30 H Urine Glucose (UA) Normal Urine Ketones 5 H Urine Occult Blood 25 H Urine Nitrite Negative Urine Bilirubin Negative Urine Urobilinogen Normal Ur Leukocyte Esterase Negative Urine RBC 0 SEEN Urine WBC 0 SEEN Ur Squamous Epith Cells 0 SEEN Urine Bacteria 0 SEEN Urine Mucus 0 SEEN Radiography Diagnostic Testing: Clinical Impression(s) from Imaging Studies Brain CT 10/16/25 18:33 IMPRESSION: Moderate global cerebral atrophy with severe chronic microvascular ischemic changes. No CT evidence of acute hemorrhage or acute infarction. Patent intracranial and extracranial carotid and vertebral arteries without hemodynamically significant stenosis. No acute intracranial abnormality detected. Critical results were communicated to Quiana at 6:55 p.m.. Reading Location: [facility] Head/Neck CTA 10/16/25 18:35 IMPRESSION: Moderate global cerebral atrophy with severe chronic microvascular ischemic changes. No CT evidence of acute hemorrhage or acute infarction. Patent intracranial and extracranial carotid and vertebral arteries without hemodynamically significant stenosis. No acute intracranial abnormality detected. Critical results were communicated to Quiana at 6:55 p.m.. Reading Location: [facility] Discharge Plan Triage Chief Complaint: Stroke Alert ED Provider: Quiana Miller Dx/Rx/DC Orders Prescriptions: No Action calcium carbonate [Calcium 500] 500 mg calcium (1,250 mg) tablet,chewable 500 mg PO DAILY lisinopril 10 MG tablet 10 mg PO DAILY Qty: 30 0RF aspirin 81 mg Tablet,Delayed Release (Dr/Ec) 81 mg PO DAILY atorvastatin 80 mg tablet 80 mg PO QHS alendronate 35 mg tablet 35 mg PO DAILY mirtazapine 30 mg tablet 30 mg PO QHS Primary Care Provider: Amisha Torrez Referrals: Amisha Torrez MD [Primary Care Provider, Family Practice] Print Language: Sami NIHSS NIHSS 1a. Level of Consciousness: 0 - Alert; keenly responsive 1b. LOC Questions: 0 - Answers BOTH questions correctly 1c. LOC Commands: 0 - Performs BOTH tasks correctly 2. Best Gaze: 0 - Normal 3. Visual: 0 - No visual loss 4. Facial Palsy: 0 - Normal symmetrical movements 5a. Left Arm: 0 - No drift; arm holds 90 (or 45) degrees for full 10 seconds 5b. Right Arm: 0 - No drift; arm holds 90 (or 45) degrees for full 10 seconds 6a. Left Le - No drift; leg holds 30-degree position for full 5 seconds 6b. Right Le - No drift; leg holds 30-degree position for full 5 seconds 7. Limb Ataxia: 0 - Absent 8. Sensory: 0 - Normal; no sensory loss 9. Best Language: 0 - No aphasia; normal 10. Dysarthria: 0 - Normal 11. Extinction and Inattention: 0 - No abnormality Total: 0 Stroke Questions Stroke Team Activated: Yes Reviewed Inclusion/Exclusion criteria: Yes IV Thrombolytic Administered: No No contraindications from thrombolytic administration: No
[2025-10-16 19:48] LABS: Troponin T High Sensitivity 57 ng/L (<=14)
[2025-10-16 21:24] LABS: Troponin T High Sens 2 HR 53 ng/L (<=14)
[2025-10-16 21:49] LABS: Mucous, Urine 0 SEEN /hpf (<or=2+); Red Blood Cells-Urine 0 SEEN /hpf (0-5); Squamous Epithelial Cells - UA 0 SEEN /hpf (5-10)
[2025-10-16 21:59] LABS: Color, Urine Yellow (Yellow); Glucose, Dipstick Normal (Normal); Ketone-Dipstick 5 mg/dl (Negative); Leukocyte Esterase-Dipstick Negative /ul (Negative); Nitrite-Dipstick Negative (Negative); Occult Blood-Urine 25 /ul (Negative); Protein-Dipstick 30 mg/dl (Negative); Specific Gravity, Urine 1.010 (1.002-1.030); Urine Bilirubin Dipstick Negative (Negative)
--- NOTE | 2025-10-16 22:28 | HP.PCM.HOS_ITS ---
HPI - General General Date of Admission: 10/16/25 Date of Service: 10/16/25 Chief Complaint: Transient confusion, aphasia. HPI Narrative The patient is a 79 y/o F w/ PMHx: Hx TIA/CVA, Dementia unclear extent/unclear type with unclear behavioral disturbance history, Macular degeneration, HTN, HLD, Anxiety and Depression, Tobacco use, CKD stage II per GFR trending who presents to the [facility] ED on 10/16/2025 with history of last known well at approximately 1530 on day of presentation following which at approximately 1730 her granddaughter went to pick her up noted that she was confused and had difficulty finding words with previous history of TIA prompting family bring patient in for evaluation. Given presentation timeline stroke alert was initiated. Workup in the ED included T97.6, heart rate 85, BP 180/123, respiratory rate 13, 99% on room air, CBC with WC is 8.7, hemoglobin 15.4, platelet 276 at marked shift, coags unremarkable aside PTT 22.2, troponin 57, BMP with BUN/creatinine 17/0.90, GFR 65, glucose 130, CT brain/CTA head and neck with moderate global cerebral atrophy with severe chronic microvascular ischemic changes with no evidence of acute hemorrhage or infarction, patent intracranial and extracranial carotid and vertebral arteries without any hemodynamically significant stenosis, troponin 56 with repeat delta 53, EKG with sinus rhythm with PACs with no acute evidence of ischemia. Neurologist with telestroke evaluation reported that patient at baseline is able to hold conversations, follow multiple step commands and keep her home however she has been struggling with short-term memory often forgetting conversations within a 2-hour time span with reported evaluation outpatient with neurology 07/2023 for transient episodes of slurred speech and confusion with multiple MRIs and evaluation with significant white matter disease and mild cognitive impairment with recommendation at that time for neuropsych testing but it is unclear if that was obtained. NIH stroke scale assessment per neurologist noted to be 1 for incorrect question stating that she is 26. In the ED patient ministered lisinopril 10 mg p.o. x 1. [facility] Medical History Tobacco use CKD (chronic kidney disease), stage II Anxiety and depression HLD (hyperlipidemia) Smoker HTN (hypertension) TIA (transient ischemic attack) Macular degeneration Home Medications ?Medication ?Instructions ?Recorded ?Last Taken ?Type lisinopril 10 mg tablet 10 mg PO DAILY #30 tabs 02/0507/20/22 Rx aspirin 81 mg tablet,delayed 81 mg PO DAILY heart heal th 07/20/22 07/19/22 History release alendronate 35 mg tablet 35 mg PO DAILY 03/11/23 Unkn own History atorvastatin 80 mg tablet 80 mg PO QHS 03/11/23 Unknow n History mirtazapine 30 mg tablet 30 mg PO QHS 03/11/23 Unknow n History calcium carbonate (Calcium 500) 500 mg PO DAILY Unknown History Allergy/AdvReac Type Severity Reaction Status Date / Time No Known Allergies Allergy Verified 10/16/25 18:53 Family History Mother Diabetes Father CVA (cerebral vascular accident) Surgical History History of cataract surgery Social History (Updated 10/16/25 @ 23:[address] Maryam Sneed MD) household members: none Smoking Status: Current every day smoker tobacco type: cigarettes Tobacco: How many years used: 20 alcohol intake: never substance use type: does not use ROS ROS Narrative Admission Review of Systems: CONSTITUTIONAL: No weight loss, fever, chills, + weakness or fatigue. HEENT: Eyes: No visual loss, blurred vision, double vision or yellow sclerae. Ears, Nose, Throat: No hearing loss, sneezing, congestion, runny nose or sore throat. SKIN: No rash or itching, lesions, wounds. CARDIOVASCULAR: No chest pain, chest pressure or chest discomfort, palpitations, edema, orthopnea, syncopal events. RESPIRATORY: No shortness of breath, cough or sputum, wheezing, hemoptysis. GASTROINTESTINAL: No anorexia, nausea, vomiting or diarrhea, abdominal pain, melena, BRBPR. GENITOURINARY: No dysuria, frequency, urgency or retention. NEUROLOGICAL: + Confusion, possibly expressive aphasia. No headache, dizziness, syncope, paralysis, ataxia, numbness or tingling in the extremities, focal weakness, change in bowel or bladder control, seizure. MUSCULOSKELETAL: No muscle, back pain, joint pain or stiffness. HEMATOLOGIC: No anemia, bleeding or bruising. LYMPHATICS: No enlarged nodes. No history of splenectomy. PSYCHIATRIC: + History of anxiety and depression. ENDOCRINOLOGIC: No reports of sweating, cold or heat intolerance. No polyuria or polydipsia. ALLERGIES: No history of asthma, hives, eczema or rhinitis. Vital Signs Vital Signs Vital Signs: 10/16/25 18:23 10/16/25 18:33 10/16/25 18:43 Temperature 98 F 97.6 F L Temperature Source Temporal Oral Pulse Rate 85 Respiratory Rate 13 Blood Pressure 180/123 H Blood Pressure Mean 142 Pulse Ox 99 Oxygen Delivery Method Room Air Room Air 10/16/25 19:22 10/16/25 20:00 10/16/25 21:00 Temperature 97.8 F Temperature Source Oral Pulse Rate 86 73 74 Respiratory Rate 22 H 20 H 24 H Blood Pressure 172/129 H 155/112 H 163/95 H Blood Pressure Mean 143 126 117 Pulse Ox 96 96 96 Oxygen Delivery Method Room Air Room Air Room Air 10/16/25 22:00 Temperature Temperature Source Pulse Rate 73 Respiratory Rate 23 H Blood Pressure 141/89 H Blood Pressure Mean 106 Pulse Ox 96 Oxygen Delivery Method Room Air Weight Weight: 83 lb 15.938 oz Body Mass Index (BMI) 14.3 Physical Exam Narrative Physical Examination: General: Awake, alert, oriented to self, place, city, year but gives the wrong month and cannot give who the president is, remains cooperative, laying in the ED bed, no acute distress. Skin: Normal color, normal turgor, no icterus, no cyanosis except occasional stage ecchymoses, abrasion. HEENT: AT/NC, EOMI, PERRLA, mildly dry MM, no carotid bruits or JVD noted. Lungs: CTA bilaterally, moderate effort, mild decrease BL bases, no rales, ronchi or wheezing. Heart: Regular rate and rhythm; no gallop, rub audible. Abdomen: Soft, thin habitus, NTTP, ND, normal BS, no appreciated HSM. Extremities: No cyanosis, clubbing, or edema. Neurological: Patient awake, alert, oriented as noted, cognitive function suspect the likely consistent with baseline the patient transiently has been a confused and reportedly previous to this had some component of increased expressive aphasia likely back to her baseline at this moment, pupils equally reactive to light and accommodation, cranial nerves grossly normal, moving all 4 extremities, no focal deficits, strength preserved, equal Babinski, FTN/HTS unremarkable, sensation intact. Psychiatric: Affect appears mildly fatigued but smiling, no acute evidence of depressive or anxiety feelings but does have underlying history. Results Lab / Micro Data 10/16/25 18:35 10/16/25 18:35 Labs: Laboratory Results - last 24 hr 10/16/25 18:35: WBC 8.7, RBC 4.94, Hgb 15.4 H, Hct 47.3 H, MCV 95.7, MCH 31.2, MCHC 32.6, RDW Std Deviation 48.4 H, RDW Coeff of [place] 13.7, Plt Count 276, MPV 9.2, Immature Gran % (Auto) 0.300, Neut % (Auto) 72.6 H, Lymph % (Auto) 17.3 L, [place] % (Auto) 8.0, Eos % (Auto) 1.0, Baso % (Auto) 0.8, Absolute Neuts (auto) 6.3, Absolute Lymphs (auto) 1.51, Nucleated RBC % 0, PT 12.5, INR 0.9, APTT 22.2 L, Sodium 141, Potassium 3.8, Chloride 100, Carbon Dioxide 27.2, Anion Gap 14, BUN 17, Creatinine 0.90, Estim Creat Clear Calc 30.49 L, Est GFR (MDRD) Non-Af 65, BUN/Creatinine Ratio 18.8, Glucose 130 H, Calcium 10.8, Troponin T High Sens 57 H* 10/16/25 21:00: Troponin T Hi Sens 2 Hr 53 H Imaging Radiology Impression Brain CT 10/16/25 18:33 IMPRESSION: Moderate global cerebral atrophy with severe chronic microvascular ischemic changes. No CT evidence of acute hemorrhage or acute infarction. Patent intracranial and extracranial carotid and vertebral arteries without hemodynamically significant stenosis. No acute intracranial abnormality detected. Critical results were communicated to Quiana at 6:55 p.m.. Reading Location: [facility] Head/Neck CTA 10/16/25 18:35 IMPRESSION: Moderate global cerebral atrophy with severe chronic microvascular ischemic changes. No CT evidence of acute hemorrhage or acute infarction. Patent intracranial and extracranial carotid and vertebral arteries without hemodynamically significant stenosis. No acute intracranial abnormality detected. Critical results were communicated to Quiana at 6:55 p.m.. [facility] Assessment & Plan Assessment/Plan (1) Aphasia: PLAN: Plan The patient is a 79 y/o F w/ PMHx: Hx TIA/CVA, Dementia unclear extent/unclear type with unclear behavioral disturbance history, Macular degeneration, HTN, HLD, Anxiety and Depression, Tobacco use, CKD stage II per GFR trending who presents to the [facility] ED on 10/16/2025 with history of last known well at approximately 1530 on day of presentation following which at approximately 1730 her granddaughter went to pick her up noted that she was confused and had difficulty finding words with previous history of TIA prompting family bring patient in for evaluation. #1. Confusion, expressive aphasia concerning for altered mental state versus TIA/CVA with history of previous TIA/CVA complicated by dementia unclear extent/unclear type with unclear behavioral disturbance history: Will admit to PCU, will obtain MRI Brain given last noted 2022 although lower suspicion per Neurology for TIA/CVA as etiology but to be cautious given possiblity, will obtain ECHO, PT/OT/Speech/Nutrition evaluation per protocol. Will allow permissive HTN, maintain on asa, statin w/ AM FLP, fall precautions. Mag, TSH, FLP, HgbA1c requested. Maintain on fall and aspiration precautions. Neurology consultation will be continued, currently suspect alternate etiology whether infectious versus metabolic, low suspicion for new stroke with recommendation for pursuing metabolic and infectious workup in addition. Procalcitonin, full respiratory panel, NH level, chest x-ray, urinalysis/urine culture requested. #2. Indeterminate cardiac enzyme of unclear significance: Troponin 57 with repeat delta 53, EKG with sinus rhythm with PACs with no acute evidence of ischemia, chest x-ray requested, will maintain on telemetry, continue to cycle cardiac enzymes, magnesium level requested, FLP pending, will maintain on aspirin therapy, continue statin, echocardiogram requested. Given #1 evaluation will hold on the concept of stress testing however if enzyme rises notably may need to consider cardiology involvement. #3. Hyperglycemia without diabetic history: Admission glucose 130, no diabetic history, hemo-A1c pending per protocol given #1 is noted. #4. Chronic Kidney Disease Stage II per GFR trending: Admission BUN/Cr 17/0.90, GFR 65, baseline renal function primarily 0.8-1.1, repeat BMP in AM. #5. Hypertension: Will maintain permissive hypertension given presentation with as needed agents per stroke protocol. #6. Hyperlipidemia: Continue home statin regimen. AM FLP. #7. Anxiety and depression: Will continue patient home mirtazapine regimen. #8. Tobacco Abuse: Encouraged cessation, inpatient consultation per RT, NR if desired. #9. DVT prophylaxis: Lovenox. #10. CODE status: Patient MARCELINO is her daughter and living will is currently in place. Discussed CODE status at length including difference between FULL code, DNR-CCA and DNR-CC status. Following discussions about the differences in these status, requested Full Code status. Charges/Coding Visit Charges Inpatient E&M: 90324 Init Hosp L3
[2025-10-16 23:54] LABS: Magnesium 1.6 mg/dL (1.5-2.2)
--- NOTE | 2025-10-16 23:55 | ECHOD_ITS ---
Reason For Study Reason For Study: TIA/CVA Procedure This was a 2D Doppler, Color Flow transthoracic echocardiogram. The study was technically difficult. Exam performed portable in patient room. Left Ventricle Normal LV size. The estimated ejection fraction is 70 %. No evidence for diastolic dysfunction. No regional wall motion abnormalities noted. Right Ventricle Normal RV size. Normal systolic function. Atria The left and right atria are normal. No doppler evidence for ASD. Mitral Valve There is no mitral valve stenosis. Trivial mitral valve insufficiency. Tricuspid Valve There is no tricuspid stenosis. Mild (1+) tricuspid valve insufficiency. Pulmonary artery systolic pressure is 40-45 mmHg. Aortic Valve Trisinus/trileaflet aortic valve. There is no aortic stenosis. Trivial aortic valve insufficiency. Pulmonic Valve There is no pulmonic valvular stenosis. No pulmonic valve insufficiency. Great Vessels Normal sized aortic root. Pericardium/Pleural No pericardial effusion. MMode/2D Measurements & Calculations LVIDd: 3.8 cm IVSd: 0.77 cm Ao root diam: 3.2 cm LVIDs: 2.4 cm LVPWd: 0.76 cm RVDd: 2.6 cm FS: 35.1 % LAV(MOD-sp4): 23.0 ml LVAd ap4: 17.5 cm2 SV(MOD-sp4): 26.2 ml LVLd ap4: 6.0 cm SI(MOD-sp4): 19.1 ml/m2 EDV(MOD-sp4): 40.1 ml EDV(sp4-el): 42.8 ml LVAs ap4: 9.2 cm2 LVLs ap4: 4.8 cm ESV(MOD-sp4): 14.0 ml ESV(sp4-el): 14.8 ml EF(MOD-sp4): 65.2 % EF(sp4-el): 65.4 % SV(sp4-el): 28.0 ml LA A4 area: 11.7 cm2 LA dimension(2D): 2.5 cm RA A4 area: 11.1 cm2 TAPSE: 2.2 cm Doppler Measurements & Calculations MV E max williams: 69.9 cm/sec Lat Peak E' Williams: 8.5 cm/sec Med Peak E' Williams: 5.6 cm/sec E/E' lat: 8.2 E/E' med: 12.5 Ao V2 max: 147.9 cm/sec AI max williams: 435.2 cm/sec LV V1 max: 91.5 cm/sec Ao max P.8 mmHg AI max P.8 mmHg LV V1 max P.3 mmHg AI dec slope: 235.8 cm/sec2 AI P1/2t: 540.5 msec PA V2 max: 101.8 cm/sec TR max williams: 303.1 cm/sec TR max P.7 mmHg ECHO/Echo Complete Interpretation Summary The estimated ejection fraction is 70 %. No evidence for diastolic dysfunction. Trivial mitral valve insufficiency. Trivial aortic valve insufficiency. Ordering Physician: Maryam Sneed Referring Physician: CARLOTTA ALFARO Performed By: Jessie Monroe RDCS
--- OUTSIDE RECORDS SUMMARY | 2025-10-16 23:55 | XMS RPT_ITS | CCD ---
Author Organization [facility] Care Team Providers Care Director [employer] Name Role Phone Chyna BETANCOURT, Alonso Keenan Primary Care Provider MD Ike Palacios Emergency Provider Dr. Amisha Torrez Primary Care Provider Dr. Vijay Juárezit Provider Dr. Vijay Juárez Other Provider Dr. Hai Doe Other Provider Donnell PARTS MANAGER, RAFAL-C Neelam Attending Provider Dr. Cresencio Villarreal [...] Referring Unavailable ALONSO OBANDO Primary Care Unavailable Tnfaisal Amisha Referring Unavailable Amisha Torerz Attending Unavailable Miedshawn Amisha Primary Care Unavailable Miedshawn Amisha Primary Care Unavailable Ga, April Referring Unavailable April Koroma Attending Unavailable Lore Amisha Primary Care Unavailable Robotham, April Referring Unavailable Robotfelipe, April Attending Unavailable Lore, Amisha Referring Unavailable [...] Drug Class(es) Dates Sig (Normalized) Sig (Original) [id number] 200 actuat albuterol 0.09 mg/actuat metered dose [...] Absolute Lymph 1.20 X10 3/uL Normal 0.83-4.51 [facility] Comment on above: Performed By: #### L 100.0100, L500.4050, L503.0105, L500.4100, L506.1000 #### [facility] [address] [place], [place], [id number] Absolute Neut 5.8 X10 3/uL Normal 2.0-7.7 [facility] Comment on above: Performed By: #### L 100.0100, L500.4050, L503.0105, L500.4100, L506.1000 #### [facility] [address] [place], [address] Basophils/100 WBC (Bld) 0.4 % Normal 0-1 [facility] Comment on above: Performed By: #### L 100.0100, L500.4050, L503.0105, L500.4100, L506.1000 #### [facility] [address] [place], [address] Eosinophils/100 WBC (Bld) 0.8 % Normal 0-5 [facility] Comment on above: Performed By: #### L 100.0100, L500.4050, L503.0105, L500.4100, L506.1000 #### [facility] [address] [place], [address] Erythrocyte distribution width (RBC) [Ratio] 13.2 % Normal 11.6-14.6 [facility] Comment on above: Performed By: #### L 100.0100, L500.4050, L503.0105, L500.4100, L506.1000 #### [facility] [address] [place] [place], [address] Hematocrit (Bld) [Volume fraction] 50.8 % High 37-47 [facility] Comment on above: Performed By: #### L 100.0100, L500.4050, L503.0105, L500.4100, L506.1000 #### [facility] [address] [place], [address] Hemoglobin (Bld) [Mass/Vol] 16.1 g/dL High 12.0-15.0 [facility] Comment on above: Performed By: #### L 100.0100, L500.4050, L503.0105, L500.4100, L506.1000 #### [facility] [address] [place] [place], [address] IG% 0.300 Normal 0.0-0.9 [facility] Comment on above: Result Comment: IG% - Immature Granulocytes (promyelocytes, myelocytes and metamyelocytes) > 1% indicates that a LEFT SHIFT is Present. Performed By: #### L 100.0100, L500.4050, L503.0105, L500.4100, L506.1000 #### [facility] [address] [place], [address] Lymphocytes/100 WBC (Bld) 15.6 % Low 19-41 [facility] Comment on above: Performed By: #### L 100.0100, L500.4050, L503.0105, L500.4100, L506.1000 #### [facility] [address] [place], [address] MCH (RBC) [Entitic mass] 30.7 pg Normal 27.0-32.0 [facility] Comment on above: Performed By: #### L 100.0100, L500.4050, L503.0105, L500.4100, L506.1000 #### [facility] [address] [place], [address] MCHC (RBC) [Mass/Vol] 31.7 g/dL Low 32-36 [facility] Comment on above: Performed By: #### L 100.0100, L500.4050, L503.0105, L500.4100, L506.1000 #### [facility] [address] [place], [address] MCV (RBC) [Entitic vol] 96.8 fL Normal 81-99 [facility] Comment on above: Performed By: #### L 100.0100, L500.4050, L503.0105, L500.4100, L506.1000 #### [facility] [address] [place], [address] Monocytes/100 WBC (Bld) 8.1 % Normal 0-10 [facility] Comment on above: Performed By: #### L 100.0100, L500.4050, L503.0105, L500.4100, L506.1000 #### [facility] [address] [place], [address] Neutrophils/100 WBC (Bld) 74.8 % High 47-70 [facility] Comment on above: Performed By: #### L 100.0100, L500.4050, L503.0105, L500.4100, L506.1000 #### [facility] [address] [place], [address] Nucleated RBC (Bld) [#/Vol] 0 10*3/uL Normal 0-5 [facility] Comment on above: Performed By: #### L 100.0100, L500.4050, L503.0105, L500.4100, L506.1000 #### [facility] [address] [place], [address] Platelet mean volume (Bld) [Entitic vol] 9.8 fL Normal 6.2-12.0 [facility] Comment on above: Performed By: #### L 100.0100, L500.4050, L503.0105, L500.4100, L506.1000 #### [facility] [address] [place], [address] Platelets (Bld) [#/Vol] 232 10*3/uL Normal 150-450 [facility] Comment on above: Performed By: #### L 100.0100, L500.4050, L503.0105, L500.4100, L506.1000 #### [facility] [address] [place], [address] RBC (Bld) [#/Vol] 5.25 10*6/uL Normal 4.2-5.4 [facility] Comment on above: Performed By: #### L 100.0100, L500.4050, L503.0105, L500.4100, L506.1000 #### [facility] [address] [place], [address] RDW SD 47.0 fl High 35.1-43.9 [facility] Comment on above: Performed By: #### L 100.0100, L500.4050, L503.0105, L500.4100, L506.1000 #### [facility] [address] [place], [address] WBC (Bld) [#/Vol] 7.7 10*3/uL Normal 4.4-11.0 [facility] Comment on above: Performed By: #### L 100.0100, L500.4050, L503.0105, L500.4100, L506.1000 #### [facility] [address] [place], [address] [facility] 09-18-2024 Albumin [Mass/Vol] 4.2 g/dL Normal 3.2-5.0 [facility] Comment on above: Performed By: #### L 100.0100, L500.4050, L503.0105, L500.4100, L506.1000 #### [facility] [address] [place], [address] Albumin/Globulin [Mass ratio] 1.3 {ratio} Normal 0.9-2.4 [facility] Comment on above: Performed By: #### L 100.0100, L500.4050, L503.0105, L500.4100, L506.1000 #### [facility] [address] [place], [address] ALK P 92 U/L Normal 45-117 [facility] Comment on above: Performed By: #### L 100.0100, L500.4050, L503.0105, L500.4100, L506.1000 #### [facility] [address] [place], [address] ALT [Catalytic activity/Vol] 17 U/L Normal 13-56 [facility] Comment on above: Performed By: #### L 100.0100, L500.4050, L503.0105, L500.4100, L506.1000 #### [facility] [address] [place], [address] AST [Catalytic activity/Vol] 17 U/L Normal 15-37 [facility] Comment on above: Performed By: #### L 100.0100, L500.4050, L503.0105, L500.4100, L506.1000 #### [facility] [address] [place], [address] Bilirubin [Mass/Vol] 0.50 mg/dL Normal 0.20-1.00 [facility] Comment on above: Result Comment: For patients on eltrombopag therapy, use of Dimension [place] TBIL is not recommended. Performed By: #### L 100.0100, L500.4050, L503.0105, L500.4100, L506.1000 #### [facility] [address] [place], [address] BUN/CRE 15.6 RATIO Normal 10-20 [facility] Comment on above: Performed By: #### L 100.0100, L500.4050, L503.0105, L500.4100, L506.1000 #### [facility] [address] [place], [address] CA,Total 9.6 mg/dL Normal 8.5-10.1 [facility] Comment on above: Performed By: #### L 100.0100, L500.4050, L503.0105, L500.4100, L506.1000 #### [facility] [address] [place], [address] Chloride [Moles/Vol] 106 mmol/L Normal 98-107 [facility] Comment on above: Performed By: #### L 100.0100, L500.4050, L503.0105, L500.4100, L506.1000 #### [facility] [address] [place], [address] CO2 [Moles/Vol] 28.0 mmol/L Normal 21.0-32.0 [facility] Comment on above: Performed By: #### L 100.0100, L500.4050, L503.0105, L500.4100, L506.1000 #### [facility] [address] [place], [address] Creatinine [Mass/Vol] 0.84 mg/dL Normal 0.55-1.02 [facility] Comment on above: Result Comment: The validity of the calculated GFR GFRAA in patients over 70 years has not been determined. Clinical correlation is essential. Performed By: #### L 100.0100, L500.4050, L503.0105, L500.4100, L506.1000 #### [facility] [address] [place], [address] EST GFR - AA 85 mL/min Normal >60 [facility] Comment on above: Result Comment: Afri can Jamaican GFR Calc Performed By: #### L 100.0100, L500.4050, L503.0105, L500.4100, L506.1000 #### [facility] [address] [place], [address] GAP 6 Normal 5-15 [facility] Comment on above: Performed By: #### L 100.0100, L500.4050, L503.0105, L500.4100, L506.1000 #### [facility] [address] [place], [address] GFR/1.73 sq M.predicted among non-blacks MDRD (S/P/Bld) [Vol rate/Area] 70 mL/min/{1.73_m2} Normal >60 [facility] Comment on above: Result Comment: Non- GFR Calc Performed By: #### L 100.0100, L500.4050, L503.0105, L500.4100, L506.1000 #### [facility] [address] [place], [address] Globulin (S) [Mass/Vol] 3.2 g/dL Normal 2.2-4.2 [facility] Comment on above: Performed By: #### L 100.0100, L500.4050, L503.0105, L500.4100, L506.1000 #### [facility] [address] [place], [address] Glucose [Mass/Vol] 128 mg/dL High 74-106 [facility] Comment on above: Result Comment: Fast ing Glucose result greater than or equal to 126 mg/dL suggests DIABETES MELLITUS per A.D.A. criteria. Performed By: #### L 100.0100, L500.4050, L503.0105, L500.4100, L506.1000 #### [facility] [address] [place], [address] Potassium [Moles/Vol] 3.3 mmol/L Low 3.5-5.1 [facility] Comment on above: Performed By: #### L 100.0100, L500.4050, L503.0105, L500.4100, L506.1000 #### [facility] [address] [place], [address] Sodium [Moles/Vol] 140 mmol/L Normal 136-145 [facility] Comment on above: Performed By: #### L 100.0100, L500.4050, L503.0105, L500.4100, L506.1000 #### [facility] [address] [place], [address] T PROT 7.4 g/dL Normal 6.4-8.2 [facility] Comment on above: Performed By: #### L 100.0100, L500.4050, L503.0105, L500.4100, L506.1000 #### [facility] [address] [place], [address] Urea nitrogen [Mass/Vol] 13 mg/dL Normal 7-18 [facility] Comment on above: Performed By: #### L 100.0100, L500.4050, L503.0105, L500.4100, L506.1000 #### [facility] [address] [place], [address] Lipid Profileon 09-18-2024 Cholesterol [Mass/Vol] 224 mg/dL High 200 [facility] Comment on above: Result Comment: <200 mg/dL Desirable 200-240 mg/dL Borderline >240 mg/dL High Risk Performed By: #### L 100.0100, L500.4050, L503.0105, L500.4100, L506.1000 #### [facility] [address] [place], [address] Cholesterol in HDL [Mass/Vol] 69 mg/dL Normal [facility] Comment on above: Result Comment: The drugs N-Acetylcysteine and Metamizole may falsely depress this assay. Reference Range HDL <40 mg/dL Low HDL Cholesterol HDL >or= 60 mg/dL High HDL Cholesterol Performed By: #### L 100.0100, L500.4050, L503.0105, L500.4100, L506.1000 #### [facility] [address] [place], [address] Cholesterol in LDL [Mass/Vol] 122 mg/dL Normal 0-130 [facility] Comment on above: Performed By: #### L 100.0100, L500.4050, L503.0105, L500.4100, L506.1000 #### [facility] [address] [place], [address] Cholesterol in VLDL [Mass/Vol] 33 mg/dL Normal 5-40 [facility] Comment on above: Performed By: #### L 100.0100, L500.4050, L503.0105, L500.4100, L506.1000 #### [facility] [address] [place], [address] Triglyceride [Mass/Vol] 167 mg/dL Normal [facility] Comment on above: Result Comment: The drugs N-Acetylcysteine and Metamizole may falsely depress this assay. Serum Triglycerides Reference Interval Normal <150 mg/dL Borderline high 150 - 199 mg/dL High 200 - 499 mg/dL Very High > or = 500 mg/dL Performed By: #### L 100.0100, L500.4050, L503.0105, L500.4100, L506.1000 #### [facility] [address] [place], [address] Vitamin B12on 09-18-2024 Cobalamin (Vitamin B12) [Mass/Vol] pg/mL High 211-911 [facility] Comment on above: Performed By: #### L 100.0100, L500.4050, L503.0105, L500.4100, L506.1000 #### [facility] [address] [place], [address] Vitamin D,25 Hydroxyon 09-18 Vitamin D 25-OH 9.2 ng/mL Normal [facility] Comment on above: Result Comment: Irma min D 25(OH) Status Range Deficiency <20 ng/mL (50nmol/L) Insufficiency 20 - 30 ng/mL (50 - 75 nmol/L) Sufficiency 30 - 100 ng/mL (75 - 250 nmol/L) Toxicity >100 ng/mL (>250 nmol/L) Performed By: #### L 100.0100, L500.4050, L503.0105, L500.4100, L506.1000 #### [facility] [address] [place], [address] Breast Limited Unilateralon 03-01-2024 Breast Limited Unilateral [facility] Imaging Services [address] [place] [address] Breast Limited Unilateral MR#: [id number] Acct: [id number] Name: SHEELA TADEO Rep #: [id number] : 1945 F 78 From: Coleman parker MD PCP: Dr. Amisha Torrez MD Status: [facility] Study: Breast Limited Unilateral Date of Exam: Exam# [id number] Ordering Dr: April Koroma MD [id number] STUDY: ULTRASOUND BREAST - LEFT REASON FOR [...] Amisha Torrez MD; Dr. April Koroma MD Road Engineer: Signed Normal [facility] Surgery Specimen Level Rex 10-25-2023 Surgery Specimen Level IV Patient Age/Sex Location Account Attending Physician SHEELA TADEO 77/F [facility] [id number] Dr. April Koroma MD Specimen: [id number] Received: 10/26/23 Status: SH[facility] [place] Num: [id number] Spec Type: BREAST BX Subm Dr: Dr. [...] 1 minute Fixation Time: 30.5 hours CPT: 40808 Patient Age/Sex Location Account Attending Physician SHEELA TADEO 77/F [facility] [id number] Dr. April Koroma MD Signed (signature on file) Dr. Alfa Hyman MD 10/27/23 1442 Normal [facility] Comment on above: Performed By: #### P MEG #### [facility] [place], [address] Surgery Visit Reporton 10-25 Surgery Visit Report [facility] [address] [place] [address] OFFICE VISIT Date of Service: 10/25/23 MR#: [id number] Acct: [id number] Name: SHEELA TADEO Rep #: [id number] : 1945 Provider: Dr. April wang MD Age/Sex: 77/F Location: [facility] Status: Signed Intake Vital Signs 03/12/23 08:28 [...] mg PO DAILY 10/25/23 [History Confirmed 10/25/23] [facility] Medical History HTN (hypertension) Macular degeneration Smoker [...] No diseq (more content not included)... Normal [facility] Absolute lymphocyte countOrd ered By: Amisha Torrez on 08-14-2023 Lymphocytes Auto (Unsp spec) [#/Vol] 2.15 10*3/uL 0.83-4.51 [facility] Basophil percentageOrdered B y: Amisha Torrez on 08-14-2023 Basophils/100 WBC (Bld) 0.8 % 0-1 [facility] Bilirubin [Mass/Vol] 0.30 mg/dL 0.20-1.00 [facility] Comment on above: For patients on eltr ombopag therapy, use of Dimension [place] TBIL is not recommended. Chloride [Moles/Vol] 108 mmol/L 98-107 [facility] Cholesterol [Mass/Vol] 152 mg/dL <200 [facility] Comment on above: <200 mg/dL Desirable 200-240 mg/dL Borderline >240 mg/dL High Risk Eosinophils/100 WBC (Bld) 3.2 % 0-5 [facility] Glucose [Mass/Vol] 98 mg/dL 74-106 [facility] Neutrophils (Bld) [#/Vol] 3.2 10*3/uL 2.0-7.7 [facility] Neutrophils/100 WBC (Bld) 52.4 % 47-70 [facility] Potassium [Moles/Vol] 3.6 mmol/L 3.5-5.1 [facility] Protein [Mass/Vol] 7.1 g/dL 6.4-8.2 [facility] Sodium [Moles/Vol] 142 mmol/L 136-145 [facility] Triglyceride [Mass/Vol] 115 mg/dL <199 [facility] Comment on above: The drugs N-Acetylcy steine and Metamizole may falsely depress this assay.Serum Triglycerides Reference Interval Normal <150 mg/dL Borderline high 150 - 199 mg/dL High 200 - 499 mg/dL Very High > or = 500 mg/dL WBC (Bld) [#/Vol] 6.2 10*3/uL 4.4-11.0 [facility] Blood erythrocytes count (nu mber/volume)Ordered By: Amisha Torrez on 08-14-2023 RBC (Bld) [#/Vol] 5.35 10*6/uL 4.2-5.4 [facility] Blood hemoglobin measurement (mass/volume)Ordered By: Amisha Torrez on 08-14-2023 Hemoglobin (Bld) [Mass/Vol] 16.2 g/dL 12.0-15.0 [facility] Blood lymphocytes/100 leukoc ytesOrdered By: Amisha Torrez on 08-14-2023 Lymphocytes/100 WBC (Bld) 34.8 % 19-41 [facility] Blood monocytes/100 leukocyt esOrdered By: Amisha Torrez on 08-14-2023 Monocytes/100 WBC (Bld) 8.3 % 0-10 [facility] Blood platelet mean volumeOr dered By: Amisha Torrez on 08-14-2023 Platelet mean volume (Bld) [Entitic vol] 9.6 fL 6.2-12.0 [facility] Determination of erythrocyte mean corpuscular volume (MCV)Ordered By: Amisha Torrez on 08-14-2023 MCV (RBC) [Entitic vol] 99.3 fL 81-99 [facility] Hematocrit Auto (Bld) [Volum e fraction]Ordered By: Amisha Torrez on 08-14-2023 Hematocrit (Bld) [Volume fraction] 53.1 % 37-47 [facility] - Chemistry and C hemistry - challengeOrdered By: Amisha Torrez on 08-14-2023 ALP [Catalytic activity/Vol] 133 U/L 45-117 [facility] ALT [Catalytic activity/Vol] 23 U/L 13-56 [facility] CO2 [Moles/Vol] 26.0 mmol/L 21.0-32.0 [facility] Cobalamin (Vitamin B12) [Mass/Vol] 248 pg/mL 211-911 [facility] Globulin (S) [Mass/Vol] 3.2 g/dL 2.2-4.2 [facility] Urea nitrogen/Creatinine [Mass ratio] 17.7 mg/mg 10-20 [facility] - Hematology and Cell countsOrdered By: Amisha Torrez on 08-14-2023 Erythrocyte distribution width (RBC) [Entitic vol] 50.4 fL 35.1-43.9 [facility] Erythrocyte distribution width (RBC) [Ratio] 13.7 % 11.6-14.6 [facility] Immature granulocytes/100 WBC (Bld) 0.500 % 0.0-0.9 [facility] Comment on above: IG% - Immature Granu locytes (promyelocytes, myelocytes and metamyelocytes) > 1% indicates that a LEFT SHIFT is Present. MCH (RBC) [Entitic mass] 30.3 pg 27.0-32.0 [facility] Nucleated RBC/100 WBC (Bld) [Ratio] 0 % 0-5 [facility] MCHC Auto (RBC) [Mass/Vol]Or dered By: Amisha Torrez on 08-14-2023 MCHC (RBC) [Mass/Vol] 30.5 g/dL 32-36 [facility] No Panel InformationOrdered By: Amisha Torrez on 08-14-2023 Estimated GFR (MDRD) Amer 78 mL/min >60 [facility] Comment on above: GFR Calc Estimated GFR (MDRD) Non-Af Amer 64 mL/min >60 [facility] Comment on above: Non- GFR Calc Vitamin D 25-Hydroxy 16.3 ng/mL [facility] Comment on above: Vitamin D 25(OH) Sta tus Range Deficiency <20 ng/mL (50nmol/L) Insufficiency 20 - 30 ng/mL (50 - 75 nmol/L) Sufficiency 30 - 100 ng/mL (75 - 250 nmol/L) Toxicity >100 ng/mL (>250 nmol/L) Platelets bldOrdered By: Jono Torrez on 08-14-2023 Platelets (Bld) [#/Vol] 253 10*3/uL 150-450 [facility] Serum or plasma albumin guillermo urement (mass/volume)Ordered By: Amisha Torrez on 08-14-2023 Albumin [Mass/Vol] 3.9 g/dL 3.2-5.0 [facility] Serum or plasma albumin/glob ulin mass ratioOrdered By: Amisha Torrez on 08-14-2023 Albumin/Globulin [Mass ratio] 1.2 {ratio} 0.9-2.4 [facility] Serum or plasma calcium guillermo urement (mass/volume)Ordered By: Amisha Torrez on 08-14-2023 Calcium [Mass/Vol] 9.5 mg/dL 8.5-10.1 [facility] Serum or plasma cholesterol in HDL measurement (mass/volume)Ordered By: Amisha Torrez on 08-14-2023 Cholesterol in HDL [Mass/Vol] 87 mg/dL >40 [facility] Comment on above: The drugs N-Acetylcy steine and Metamizole may falsely depress this assay. Reference Range HDL <40 mg/dL Low HDL Cholesterol HDL >or= 60 mg/dL High HDL Cholesterol Serum or plasma cholesterol in VLDL measurement (mass/volume)Ordered By: mAisha Torrez on 08-14-2023 Cholesterol in VLDL [Mass/Vol] 23 mg/dL 5-40 [facility] Serum or plasma creatinine m easurement (mass/volume)Ordered By: Amisha Torrez on 08-14-2023 Creatinine [Mass/Vol] 0.90 mg/dL 0.55-1.02 [facility] Comment on above: The validity of the calculated GFR & GFRAA in patients over 70 years has not been determined. Clinical correlation is essential. Serum or plasma low density lipoprotein (LDL) cholesterol measurement (mass/volume)Ordered By: Amisha Torrez on 08-14-2023 Cholesterol in LDL [Mass/Vol] 42 mg/dL 0-130 [facility] Serum or plasma urea nitroge n measurement (mass/volume)Ordered By: Amisha Torrez on 08-14-2023 Urea nitrogen [Mass/Vol] 16 mg/dL 7-18 [facility] Thin prep Papanicolaou smear with manual screeningOrdered By: Amisha Torrez on 08-14-2023 Thin prep Papanicolaou smear with manual screening 21 U/L 15-37 [facility] Thin prep Papanicolaou smear with manual screening 8 5-15 [facility] CNOVon 07-20-2023 CNOV Office Visit ([id number]) SHEELA TADEO ([id number]) 1945 F Date Time Provider Department 07/20/23 [...] via US mail PCP: Alonso Obando [address] [place] [address] CEREBROVASCULAR HISTORY Sheela Tadeo is a 77 [...] part of the assessment. - Face, Velvet, Yarsanism, Mralen, Red Attention: - Repeat in forward order [...] - Face 11/06 - Velvet 11/06 - Yarsanism - Marlen - Red 11/06 Orientation - [...] MINUTES. sumatr (more content not included)... Normal [facility] Basophil percentageOrdered B y: Dr. Naranjo on 03-12-2023 Cholesterol [Mass/Vol] 117 mg/dL <200 [facility] Comment on above: <200 mg/dL Desirable 200-240 mg/dL Borderline >240 mg/dL High Risk Triglyceride [Mass/Vol] 88 mg/dL <199 [facility] Comment on above: The drugs N-Acetylcy steine and Metamizole may falsely depress this assay.Serum Triglycerides Reference Interval Normal <150 mg/dL Borderline high 150 - 199 mg/dL High 200 - 499 mg/dL Very High > or = 500 mg/dL Serum or plasma cholesterol in HDL measurement (mass/volume)Ordered By: Dr. Naranjo on 03-12-2023 Cholesterol in HDL [Mass/Vol] 67 mg/dL >40 [facility] Comment on above: The drugs N-Acetylcy steine and Metamizole may falsely depress this assay. Reference Range HDL <40 mg/dL Low HDL Cholesterol HDL >or= 60 mg/dL High HDL Cholesterol Serum or plasma cholesterol in VLDL measurement (mass/volume)Ordered By: Dr. Naranjo on 03-12-2023 Cholesterol in VLDL [Mass/Vol] 18 mg/dL 5-40 [facility] Serum or plasma low density lipoprotein (LDL) cholesterol measurement (mass/volume)Ordered By: Dr. Naranjo on 03-12-2023 Cholesterol in LDL [Mass/Vol] 32 mg/dL 0-130 [facility] Absolute lymphocyte countOrd ered By: Dr. Azevedo on 03-11-2023 Lymphocytes Auto (Unsp spec) [#/Vol] 1.95 10*3/uL 0.83-4.51 [facility] Basophil percentageOrdered B y: Dr. Naranjo on 03-11-2023 Basophil percentage 0-5 SEEN /hpf 0-5 [facility] Basophil percentageOrdered B y: Dr. Azevedo on 03-11-2023 Basophils/100 WBC (Bld) 0.7 % 0-1 [facility] Chloride [Moles/Vol] 106 mmol/L 98-107 [facility] Eosinophils/100 WBC (Bld) 1.6 % 0-5 [facility] Glucose [Mass/Vol] 116 mg/dL 74-106 [facility] Comment on above: Fasting Glucose resu lt from 100 to 125 mg/dL suggests IMPAIRED HOMEOSTASIS per A.D.A. criteria. Neutrophils (Bld) [#/Vol] 4.3 10*3/uL 2.0-7.7 [facility] Neutrophils/100 WBC (Bld) 61.7 % 47-70 [facility] Potassium [Moles/Vol] 3.9 mmol/L 3.5-5.1 [facility] Sodium [Moles/Vol] 141 mmol/L 136-145 [facility] WBC (Bld) [#/Vol] 7.0 10*3/uL 4.4-11.0 [facility] Bilirubin Test strip Ql (U)O rdered By: Dr. Naranjo on 03-11-2023 Bilirubin Ql (U) Negative Negative [facility] Blood erythrocytes count (nu mber/volume)Ordered By: Dr. Azevedo on 03-11-2023 RBC (Bld) [#/Vol] 4.85 10*6/uL 4.2-5.4 [facility] Blood hemoglobin measurement (mass/volume)Ordered By: Dr. Azevedo on 03-11-2023 Hemoglobin (Bld) [Mass/Vol] 15.6 g/dL 12.0-15.0 [facility] Blood lymphocytes/100 leukoc ytesOrdered By: Dr. Azevedo on 03-11-2023 Lymphocytes/100 WBC (Bld) 27.8 % 19-41 [facility] Blood monocytes/100 leukocyt esOrdered By: Dr. Azevedo on 03-11-2023 Monocytes/100 WBC (Bld) 8.1 % 0-10 [facility] Blood platelet mean volumeOr dered By: Dr. Azevedo on 03-11-2023 Platelet mean volume (Bld) [Entitic vol] 8.9 fL 6.2-12.0 [facility] Determination of erythrocyte mean corpuscular volume (MCV)Ordered By: Dr. Azevedo on 03-11-2023 MCV (RBC) [Entitic vol] 97.9 fL 81-99 [facility] Glucose Glucometer (BldC) [M ass/Vol]Ordered By: Dr. Azevedo on 03-11-2023 Glucose [Mass/Vol] 110 mg/dL 74-106 [facility] Comment on above: MANAGEMENT OF PATIEN T CARE PER NURSING PROTOCOL Hematocrit Auto (Bld) [Volum e fraction]Ordered By: Dr. Azevedo on 03-11-2023 Hematocrit (Bld) [Volume fraction] 47.5 % 37-47 [facility] INR in Blood by Coagulation assayOrdered By: Dr. Azevedo on 05-06-2023 INR Coag (Bld) [Relative time] 0.9 {INR} [facility] Ketones Test strip Ql (U)Ord ered By: Dr. Naranjo on 03-11-2023 Ketones Ql (U) Negative Negative [facility] Laboratory - Chemistry and C hemistry - challengeOrdered By: Dr. Azevedo on 03-11-2023 CO2 [Moles/Vol] 27.0 mmol/L 21.0-32.0 [facility] Urea nitrogen/Creatinine [Mass ratio] 18.8 mg/mg 10-20 [facility] Laboratory - CoagulationOrde red By: Dr. Azevedo on 03-11-2023 aPTT Coag (Bld) [Time] 26.6 s 24.1-36.2 [facility] PT Coag (PPP) [Time] 12.0 s 11.7-14.9 [facility] Laboratory - Hematology and Cell countsOrdered By: Dr. Azevedo on 03-11-2023 Erythrocyte distribution width (RBC) [Entitic vol] 47.3 fL 35.1-43.9 [facility] Erythrocyte distribution width (RBC) [Ratio] 13.2 % 11.6-14.6 [facility] Immature granulocytes/100 WBC (Bld) 0.100 % 0.0-0.9 [facility] Comment on above: IG% - Immature Granu locytes (promyelocytes, myelocytes and metamyelocytes) > 1% indicates that a LEFT SHIFT is Present. MCH (RBC) [Entitic mass] 32.2 pg 27.0-32.0 [facility] Nucleated RBC/100 WBC (Bld) [Ratio] 0 % 0-5 [facility] MCHC Auto (RBC) [Mass/Vol]Or dered By: Dr. Azevedo on 03-11-2023 MCHC (RBC) [Mass/Vol] 32.8 g/dL 32-36 [facility] Mucus LM Ql (Urine sed)Order ed By: Dr. Naranjo on 03-11-2023 Mucus Ql (Urine sed) 0 SEEN /hpf [facility] Nitrite Test strip Ql (U)Ord ered By: Dr. Naranjo on 03-11-2023 Nitrite Ql (U) Negative Negative [facility] No Panel InformationOrdered By: Dr. Naranjo on 03-11-2023 Troponin I High Sensitivity 29 pg/mL 3.0-54.0 [facility] Comment on above: Please Note: New Erika t Units and Gender Specific Reference Ranges. For more information see Policy Stat Procedure [facility] High Sensitivity Troponin (TNIH) and attachments. No Panel InformationOrdered By: Dr. Azevedo on 03-11-2023 Estimated Creatinine Clearance Calc 31.48 ml/min [facility] Estimated GFR (MDRD) Amer 61 mL/min >60 [facility] Comment on above: GFR Calc Estimated GFR (MDRD) Non-Af Amer 50 mL/min >60 [facility] Comment on above: Non- GFR Calc Troponin I High Sensitivity 32 pg/mL 3.0-54.0 [facility] Comment on above: Please Note: New Erika t Units and Gender Specific Reference Ranges. For more information see Policy Stat Procedure [facility] High Sensitivity Troponin (TNIH) and attachments. Platelets bldOrdered By: Dr. Azevedo on 03-11-2023 Platelets (Bld) [#/Vol] 267 10*3/uL 150-450 [facility] Protein Test strip Ql (U)Ord ered By: Dr. Naranjo on 03-11-2023 Protein Ql (U) 15 mg/dl Negative [facility] Serum or plasma calcium guillermo urement (mass/volume)Ordered By: Dr. Azevedo on 03-11-2023 Calcium [Mass/Vol] 10.6 mg/dL 8.5-10.1 [facility] Serum or plasma creatinine m easurement (mass/volume)Ordered By: Dr. Azevedo on 03-11-2023 Creatinine [Mass/Vol] 1.12 mg/dL 0.55-1.02 [facility] Comment on above: The validity of the calculated GFR & GFRAA in patients over 70 years has not been determined. Clinical correlation is essential. Serum or plasma urea nitroge n measurement (mass/volume)Ordered By: Dr. Azevedo on 03-11-2023 Urea nitrogen [Mass/Vol] 21 mg/dL 7-18 [facility] Squamous epithelial cells de tection in urine sediment by light microscopyOrdered By: Dr. Naranjo on 03-11-2023 Epithelial cells.squamous LM Ql (Urine sed) 0 SEEN /hpf 5-10 [facility] Thin prep Papanicolaou smear with manual screeningOrdered By: Dr. Azevedo on 03-11-2023 Thin prep Papanicolaou smear with manual screening 8 5-15 [facility] Urine blood detectionOrdered By: Dr. Naranjo on 03-11-2023 RBC Ql (U) 10 /ul Negative [facility] RBC Ql (U) 0-5 SEEN /hpf 0-5 [facility] Urine clarityOrdered By: Dr. Naranjo on 03-11-2023 Clarity (U) Clear Clear [facility] Urine color determinationOrd ered By: Dr. Naranjo on 03-11-2023 Color (U) Yellow Yellow [facility] Urine glucose detectionOrder ed By: Dr. Naranjo on 03-11-2023 Glucose Ql (U) Normal mg/dl Normal [facility] Urine leukocyte esterase det ection by dipstickOrdered By: Dr. Naranjo on 03-11-2023 Leukocyte esterase Test strip Ql (U) 25 /ul Negative [facility] Urine pHOrdered By: Dr. Tabitha urbano on 03-11-2023 pH (U) 6.5 [pH] 5.0 - 8.0 [facility] Urine sediment bacteria coun t by microscopy (number/high power field)Ordered By: Dr. Naranjo on 03-11-2023 Bacteria LM.HPF (Urine sed) [#/Area] 0 /[HPF] None Seen [facility] Urine specific gravity measu rementOrdered By: Dr. Naranjo on 03-11-2023 Specific gravity (U) [Rel density] 1.015 1.002-1.030 [facility] Urobilinogen Auto test strip Ql (U)Ordered By: Dr. Naranjo on 03-11-2023 Urobilinogen Ql (U) Normal mg/dl Normal [facility] CNTHERAPYon 02-28-2023 CNTHERAPY OT/PT/Speech Visit (AKOTLK) CARLYLESHEELA Amilcar ([id number]) 1945 F Date Time Provider Department 02/28/23 10:45 AM KEN GABRIEL Date Time Provider Department Center 02/28/2023 10:45 AM [id number] GABRIEL ANALIA ZAMBRANO Reason for Visit: OT [...] twice daily. Letter Dani Multani [facility] Brigitte 02-17-2023 CNPN Telephone (NECVS8) CARLYLESHEELA ([id number]) 1945 F Date Time Provider Department 02/17/23 [...] Carlyle, 1945). Yes Number to return call [phone] Reason for Call: [facility] Call Center is calling to assist patient with Sooner appointment with Dr. Newberry. He states patient is being referred to Dr. Nebwerry by Dr. Chiquis Haider. Patient Dx TIA, Brain Lesion and according to family friend a [employer] who was on 3-way. Patient has complex vascular issue. Patient currently schedule 05/15. Please advise whether patient can be scheduled in a new slot for possible sooner appointment. Please review and advise Neelam Jeronimo. Thanks. Thank you calling [facility]. You will receive a return call within [...] Encounter Status:Closed by NEELAM HINOJOSA on 04/05/23 [facility] CNTHERAPYon 02-15-2023 CNTHERAPY OT/PT/Speech Visit (AKOTLK) SHEELA TADEO ([id number]) 1945 F Date Time Provider Department 02/15/23 10:00 AM KEN GABRIEL Date Time Provider Department [place] 02/15/2023 10:00 AM [id number] GABRIEL Reason for Visit: OT EVAL [748] [...] one(1) tablet twice daily. Normal [facility] CNOVon 01-25-2023 [facility] Office Visit (CVAKPO) SHEELA TADEO ([id number]) 1945 F Date Time Provider Department 01/25/23 10:00 AM CHIQUIS HAIDER During your visit today, we recorded the following information about you: Pulse Blood pressure Weight Height 90/minute 151/101 45.4 kg 1.626 m Chiquis [facility]ider MD [facility]/07[facility]23 9[facility] Consultation is requested by: SELF PCP: Alonso Obando [address] [place] [address] [place] [address] CEREBROVASCULAR HISTORY Sheela Tadeo is a 77 [...] vibration. Coordination: Rapid alternating movements symmetric bilaterally. [id number], [id number] without dysmetria bilaterally. Gait: Narrow-based, normal spaced and stable without assistance. Tandem gait is stable. LABS Cholesterol: No results found for: CHOL LDL Chol, [place] (mg/dL) Date Value 10/15/2010 104 No results [...] (more content not included)... Normal [facility] Brigitte 01-25-2023 LUCIA Telephone (NEAGAK) SHEELA TADEO ([id number]) 1945 F Date Time Provider Department 01/25/23 CHIQUIS HAIDER During your visit today, we recorded the following information about you: Travel Appealtower 01/25/2023 12:26 PM Signed Submitted through portal Consult to Occupational Therapy #[id number] to be scheduled in the [place] location AND Consult to Neurology #[id number] to be scheduled in [facility] with La Krueger [facility] 02/09/2023 4:11 PM Signed Received through portal Consult to Occupational Therapy #[id number] for Driving Evaluation has been scheduled 02/15/23 in [place] with Ken aGbriel [facility] 03/09/2023 2:08 PM Signed Received through portal Consult to Neurology #[id number], patient has been scheduled with Dr. La Newberry on 05/15/23 in [facility] Allergies As of Date: 01/25/2023 (No Known [...] INDRA MORALES on 02/09/23 Normal [facility] Nuclear Ab [place] Ql (S)on 01-25 PABLO BY EIA, QUAL Negative Normal Negative [facility] Comment on above: Order Comment: Speci men Type: BLOOD SPECIMEN Ordering Facility: [facility] Address: [address] [place] [address] Result Comment: The qualitative antinuclear antibody screen test performed using enzyme immunoassay including the following antigens: dsDNA, histones, SS-A, SS-B, Sm, Sm/PIPELINE EXECUTIVE, Scl-70, Heather-1, and centromeric antigens. Performed By: #### [id number] #### [facility] CLIA [id number] [address] [place] [address] [place] Rheumatoid fact SerPl-aCncon 01-25-2023 Rheumatoid factor Qn [IU]/mL Normal <16 [facility] Comment on above: Order Comment: Speci men Type: BLOOD SPECIMEN Ordering Facility: [facility] Address: [address] [place] [address] Performed By: #### 1 [id number] #### [facility] CLIA [id number] [address] [place] [address] [place] Absolute lymphocyte countOrd ered By: Dr. Ruffin on 01-14-2023 Lymphocytes Auto (Unsp spec) [#/Vol] 2.28 10*3/uL 0.83-4.51 [facility] Basophil percentageOrdered B y: Dr. Ruffin on 01-14-2023 Basophils/100 WBC (Bld) 1.2 % 0-1 [facility] Chloride [Moles/Vol] 110 mmol/L 98-107 [facility] Cholesterol [Mass/Vol] 172 mg/dL <200 [facility] Comment on above: <200 mg/dL Desirable 200-240 mg/dL Borderline >240 mg/dL High Risk Eosinophils/100 WBC (Bld) 4.6 % 0-5 [facility] Glucose [Mass/Vol] 63 mg/dL 74-106 [facility] Neutrophils (Bld) [#/Vol] 2.5 10*3/uL 2.0-7.7 [facility] Neutrophils/100 WBC (Bld) 44.7 % 47-70 [facility] Potassium [Moles/Vol] 3.3 mmol/L 3.5-5.1 [facility] Sodium [Moles/Vol] 145 mmol/L 136-145 [facility] Triglyceride [Mass/Vol] 180 mg/dL <199 [facility] Comment on above: The drugs N-Acetylcy steine and Metamizole may falsely depress this assay.Serum Triglycerides Reference Interval Normal <150 mg/dL Borderline high 150 - 199 mg/dL High 200 - 499 mg/dL Very High > or = 500 mg/dL WBC (Bld) [#/Vol] 5.6 10*3/uL 4.4-11.0 [facility] Blood erythrocytes count (nu mber/volume)Ordered By: Dr. Ruffin on 01-14-2023 RBC (Bld) [#/Vol] 4.18 10*6/uL 4.2-5.4 [facility] Blood hemoglobin measurement (mass/volume)Ordered By: Dr. Ruffin on 01-14-2023 Hemoglobin (Bld) [Mass/Vol] 13.3 g/dL 12.0-15.0 [facility] Blood lymphocytes/100 leukoc ytesOrdered By: Dr. Ruffin on 01-14-2023 Lymphocytes/100 WBC (Bld) 40.4 % 19-41 [facility] Blood monocytes/100 leukocyt esOrdered By: Dr. Ruffin on 01-14-2023 Monocytes/100 WBC (Bld) 8.7 % 0-10 [facility] Blood platelet mean volumeOr dered By: Dr. Ruffin on 01-14-2023 Platelet mean volume (Bld) [Entitic vol] 9.0 fL 6.2-12.0 [facility] Determination of erythrocyte mean corpuscular volume (MCV)Ordered By: Dr. Ruffin on 01-14-2023 MCV (RBC) [Entitic vol] 99.8 fL 81-99 [facility] Hematocrit Auto (Bld) [Volum e fraction]Ordered By: Dr. Ruffin on 01-14-2023 Hematocrit (Bld) [Volume fraction] 41.7 % 37-47 [facility] Laboratory - Chemistry and C hemistry - challengeOrdered By: Dr. Ruffin on 01-14-2023 CO2 [Moles/Vol] 28.0 mmol/L 21.0-32.0 [facility] Urea nitrogen/Creatinine [Mass ratio] 27.5 mg/mg 10-20 [facility] Laboratory - Hematology and Cell countsOrdered By: Dr. Ruffin on 01-14-2023 Erythrocyte distribution width (RBC) [Entitic vol] 51.5 fL 35.1-43.9 [facility] Erythrocyte distribution width (RBC) [Ratio] 14.1 % 11.6-14.6 [facility] Immature granulocytes/100 WBC (Bld) 0.400 % 0.0-0.9 [facility] Comment on above: IG% - Immature Granu locytes (promyelocytes, myelocytes and metamyelocytes) > 1% indicates that a LEFT SHIFT is Present. MCH (RBC) [Entitic mass] 31.8 pg 27.0-32.0 [facility] Nucleated RBC/100 WBC (Bld) [Ratio] 0 % 0-5 [facility] MCHC Auto (RBC) [Mass/Vol]Or dered By: Dr. Ruffin on 01-14-2023 MCHC (RBC) [Mass/Vol] 31.9 g/dL 32-36 [facility] No Panel InformationOrdered By: Dr. Ruffin on 01-14-2023 Estimated Creatinine Clearance Calc 34.55 ml/min [facility] Estimated GFR (MDRD) Amer 94 mL/min >60 [facility] Comment on above: GFR Calc Estimated GFR (MDRD) Non-Af Amer 78 mL/min >60 [facility] Comment on above: Non- GFR Calc Platelets bldOrdered By: Dr. Ruffin on 01-14-2023 Platelets (Bld) [#/Vol] 302 10*3/uL 150-450 [facility] Serum or plasma calcium guillermo urement (mass/volume)Ordered By: Dr. Ruffin on 01-14-2023 Calcium [Mass/Vol] 8.5 mg/dL 8.5-10.1 [facility] Serum or plasma cholesterol in HDL measurement (mass/volume)Ordered By: Dr. Ruffin on 01-14-2023 Cholesterol in HDL [Mass/Vol] 56 mg/dL >40 [facility] Comment on above: The drugs N-Acetylcy steine and Metamizole may falsely depress this assay. Reference Range HDL <40 mg/dL Low HDL Cholesterol HDL >or= 60 mg/dL High HDL Cholesterol Serum or plasma cholesterol in VLDL measurement (mass/volume)Ordered By: Dr. Ruffin on 01-14-2023 Cholesterol in VLDL [Mass/Vol] 36 mg/dL 5-40 [facility] Serum or plasma creatinine m easurement (mass/volume)Ordered By: Dr. Ruffin on 01-14-2023 Creatinine [Mass/Vol] 0.76 mg/dL 0.55-1.02 [facility] Comment on above: The validity of the calculated GFR & GFRAA in patients over 70 years has not been determined. Clinical correlation is essential. Serum or plasma low density lipoprotein (LDL) cholesterol measurement (mass/volume)Ordered By: Dr. Ruffin on 01-14-2023 Cholesterol in LDL [Mass/Vol] 80 mg/dL 0-130 [facility] Serum or plasma urea nitroge n measurement (mass/volume)Ordered By: Dr. Ruffin on 01-14-2023 Urea nitrogen [Mass/Vol] 21 mg/dL 7-18 [facility] Thin prep Papanicolaou smear with manual screeningOrdered By: Dr. Ruffin on 01-14-2023 Thin prep Papanicolaou smear with manual screening 7 5-15 [facility] Glucose Glucometer (BldC) [M ass/Vol]Ordered By: Dr. Ruffin on 01-13-2023 Glucose [Mass/Vol] 96 mg/dL 74-106 [facility] Comment on above: MANAGEMENT OF PATIEN T CARE PER NURSING PROTOCOL INR in Blood by Coagulation assayOrdered By: Dr. Munguia on 01-13-2023 INR Coag (Bld) [Relative time] 1.0 {INR} [facility] Laboratory - CoagulationOrde red By: Dr. Munguia on 01-13-2023 aPTT Coag (Bld) [Time] 24.0 s 24.1-36.2 [facility] PT Coag (PPP) [Time] 12.6 s 11.7-14.9 [facility] No Panel InformationOrdered By: Dr. Munguia on 01-13-2023 Troponin I High Sensitivity 23 pg/mL 3.0-54.0 [facility] Comment on above: Please Note: New Erika t Units and Gender Specific Reference Ranges. For more information see Policy Stat Procedure [facility] High Sensitivity Troponin (TNIH) and attachments. Absolute lymphocyte counton 09-14-2022 Lymphocytes Auto (Unsp spec) [#/Vol] 1.81 10*3/uL 0.83-4.51 [facility] Work Phone: Basophil percentageon 2021 Basophils/100 WBC (Bld) 0.4 % 0-1 [facility] Work Phone: Bilirubin [Mass/Vol] 0.30 mg/dL 0.20-1.00 [facility] Work Phone: Comment on above: For patients on eltr ombopag therapy, use of Dimension [facility] TBIL is not recommended. Chloride [Moles/Vol] 110 mmol/L 98-107 [facility] Work Phone: Cholesterol [Mass/Vol] 219 mg/dL <200 [facility] Work Phone: Comment on above: <200 mg/dL Desirable 200-240 mg/dL Borderline >240 mg/dL High Risk Eosinophils/100 WBC (Bld) 6.7 % 0-5 [facility] Work Phone: Glucose [Mass/Vol] 96 mg/dL 74-106 [facility] Work Phone: Neutrophils (Bld) [#/Vol] 5.1 10*3/uL 2.0-7.7 [facility] Work Phone: Neutrophils/100 WBC (Bld) 61.6 % 47-70 [facility] Work Phone: Potassium [Moles/Vol] 3.7 mmol/L 3.5-5.1 [facility] Work Phone: Protein [Mass/Vol] 7.2 g/dL 6.4-8.2 [facility] Work Phone: Sodium [Moles/Vol] 142 mmol/L 136-145 [facility] Work Phone: Triglyceride [Mass/Vol] 166 mg/dL <199 [facility] Work Phone: Comment on above: The drugs N-Acetylcy steine and Metamizole may falsely depress this assay.Serum Triglycerides Reference Interval Normal <150 mg/dL Borderline high 150 - 199 mg/dL High 200 - 499 mg/dL Very High > or = 500 mg/dL WBC (Bld) [#/Vol] 8.2 10*3/uL 4.4-11.0 [facility] Work Phone: Blood erythrocytes count (nu mber/volume)on 09-14-2022 RBC (Bld) [#/Vol] 4.95 10*6/uL 4.2-5.4 [facility] Work Phone: Blood hemoglobin measurement (mass/volume)on 09-14-2022 Hemoglobin (Bld) [Mass/Vol] 15.1 g/dL 12.0-15.0 [facility] Work Phone: Blood lymphocytes/100 leukoc yteson 09-14-2022 Lymphocytes/100 WBC (Bld) 22.0 % 19-41 [facility] Work Phone: Blood monocytes/100 leukocyt eson 09-14-2022 Monocytes/100 WBC (Bld) 9.1 % 0-10 [facility] Work Phone: Blood platelet mean volumeon 09-14-2022 Platelet mean volume (Bld) [Entitic vol] 9.4 fL 6.2-12.0 [facility] Work Phone: Determination of erythrocyte mean corpuscular volume (MCV)on 09-14-2022 MCV (RBC) [Entitic vol] 97.6 fL 81-99 [facility] Work Phone: Hematocrit Auto (Bld) [Volum e fraction]on 09-14-2022 Hematocrit (Bld) [Volume fraction] 48.3 % 37-47 [facility] Work Phone: Laboratory - Chemistry and C hemistry - challengeon 09-14-2022 ALP [Catalytic activity/Vol] 97 U/L 45-117 [facility] Work Phone: ALT [Catalytic activity/Vol] 15 U/L 13-56 [facility] Work Phone: CO2 [Moles/Vol] 27.0 mmol/L 21.0-32.0 [facility] Work Phone: Globulin (S) [Mass/Vol] 3.5 g/dL 2.2-4.2 [facility] Work Phone: Urea nitrogen/Creatinine [Mass ratio] 22.5 mg/mg 10-20 [facility] Work Phone: Laboratory - Hematology and Cell countson 09-14-2022 Erythrocyte distribution width (RBC) [Entitic vol] 48.9 fL 35.1-43.9 [facility] Work Phone: Erythrocyte distribution width (RBC) [Ratio] 13.5 % 11.6-14.6 [facility] Work Phone: Immature granulocytes/100 WBC (Bld) 0.200 % 0.0-0.9 [facility] Work Phone: Comment on above: IG% - Immature Granu locytes (promyelocytes, myelocytes and metamyelocytes) > 1% indicates that a LEFT SHIFT is Present. MCH (RBC) [Entitic mass] 30.5 pg 27.0-32.0 [facility] Work Phone: Nucleated RBC/100 WBC (Bld) [Ratio] 0 % 0-5 [facility] Work Phone: MCHC Auto (RBC) [Mass/Vol]on 09-14-2022 MCHC (RBC) [Mass/Vol] 31.3 g/dL 32-36 [facility] Work Phone: No Panel Informationon 09-14 Estimated GFR (MDRD) Amer 75 mL/min >60 [facility] Work Phone: Comment on above: GFR Calc Estimated GFR (MDRD) Non-Af Amer 62 mL/min >60 [facility] Work Phone: Comment on above: Non- GFR Calc Platelets bldon 09-14-2022 Platelets (Bld) [#/Vol] 253 10*3/uL 150-450 [facility] Work Phone: Serum or plasma albumin guillermo urement (mass/volume)on 09-14-2022 Albumin [Mass/Vol] 3.7 g/dL 3.2-5.0 [facility] Work Phone: Serum or plasma albumin/glob ulin mass ratioon 09-14-2022 Albumin/Globulin [Mass ratio] 1.1 {ratio} 0.9-2.4 [facility] Work Phone: Serum or plasma calcium guillermo urement (mass/volume)on 09-14-2022 Calcium [Mass/Vol] 9.6 mg/dL 8.5-10.1 [facility] Work Phone: Serum or plasma cholesterol in HDL measurement (mass/volume)on 09-14-2022 Cholesterol in HDL [Mass/Vol] 77 mg/dL >40 [facility] Work Phone: Comment on above: The drugs N-Acetylcy steine and Metamizole may falsely depress this assay. Reference Range HDL <40 mg/dL Low HDL Cholesterol HDL >or= 60 mg/dL High HDL Cholesterol Serum or plasma cholesterol in VLDL measurement (mass/volume)on 09-14-2022 Cholesterol in VLDL [Mass/Vol] 33 mg/dL 5-40 [facility] Work Phone: Serum or plasma creatinine m easurement (mass/volume)on 09-14-2022 Creatinine [Mass/Vol] 0.93 mg/dL 0.55-1.02 [facility] Work Phone: Comment on above: The validity of the calculated GFR & GFRAA in patients over 70 years has not been determined. Clinical correlation is essential. Serum or plasma low density lipoprotein (LDL) cholesterol measurement (mass/volume)on 09-14-2022 Cholesterol in LDL [Mass/Vol] 109 mg/dL 0-130 [facility] Work Phone: Serum or plasma urea nitroge n measurement (mass/volume)on 09-14-2022 Urea nitrogen [Mass/Vol] 21 mg/dL 7-18 [facility] Work Phone: Thin prep Papanicolaou smear with manual screeningon 09-14-2022 Thin prep Papanicolaou smear with manual screening 19 U/L 15-37 [facility] Work Phone: Thin prep Papanicolaou smear with manual screening 5 5-15 [facility] Work Phone: Basophil percentageon 2021 Chloride [Moles/Vol] 109 mmol/L 98-107 [facility] Work Phone: Cholesterol [Mass/Vol] 167 mg/dL <200 [facility] Work Phone: Comment on above: <200 mg/dL Desirable 200-240 mg/dL Borderline >240 mg/dL High Risk Glucose [Mass/Vol] 81 mg/dL 74-106 [facility] Work Phone: Potassium [Moles/Vol] 3.8 mmol/L 3.5-5.1 [facility] Work Phone: Sodium [Moles/Vol] 143 mmol/L 136-145 [facility] Work Phone: Triglyceride [Mass/Vol] 179 mg/dL <199 [facility] Work Phone: Comment on above: The drugs N-Acetylcy steine and Metamizole may falsely depress this assay.Serum Triglycerides Reference Interval Normal <150 mg/dL Borderline high 150 - 199 mg/dL High 200 - 499 mg/dL Very High > or = 500 mg/dL Laboratory - Chemistry and C hemistry - challengeon 07-21-2022 CO2 [Moles/Vol] 26.0 mmol/L 21.0-32.0 [facility] Work Phone: Urea nitrogen/Creatinine [Mass ratio] 23.4 mg/mg 10-20 [facility] Work Phone: No Panel Informationon 07-21 Estimated Creatinine Clearance Calc 43.20 ml/min [facility] Work Phone: Estimated GFR (MDRD) Amer 88 mL/min >60 [facility] Work Phone: Comment on above: GFR Calc Estimated GFR (MDRD) Non-Af Amer 73 mL/min >60 [facility] Work Phone: Comment on above: Non- GFR Calc Serum or plasma calcium guillermo urement (mass/volume)on 07-21-2022 Calcium [Mass/Vol] 9.5 mg/dL 8.5-10.1 [facility] Work Phone: Serum or plasma cholesterol in HDL measurement (mass/volume)on 07-21-2022 Cholesterol in HDL [Mass/Vol] 55 mg/dL >40 [facility] Work Phone: Comment on above: The drugs N-Acetylcy steine and Metamizole may falsely depress this assay. Reference Range HDL <40 mg/dL Low HDL Cholesterol HDL >or= 60 mg/dL High HDL Cholesterol Serum or plasma cholesterol in VLDL measurement (mass/volume)on 07-21-2022 Cholesterol in VLDL [Mass/Vol] 36 mg/dL 5-40 [facility] Work Phone: Serum or plasma creatinine m easurement (mass/volume)on 07-21-2022 Creatinine [Mass/Vol] 0.81 mg/dL 0.55-1.02 [facility] Work Phone: Comment on above: The validity of the calculated GFR & GFRAA in patients over 70 years has not been determined. Clinical correlation is essential. Serum or plasma low density lipoprotein (LDL) cholesterol measurement (mass/volume)on 07-21-2022 Cholesterol in LDL [Mass/Vol] 76 mg/dL 0-130 [facility] Work Phone: Serum or plasma urea nitroge n measurement (mass/volume)on 07-21-2022 Urea nitrogen [Mass/Vol] 19 mg/dL 7-18 [facility] Work Phone: Thin prep Papanicolaou smear with manual screeningon 07-21-2022 Thin prep Papanicolaou smear with manual screening 8 5-15 [facility] Work Phone: Absolute lymphocyte counton 07-20-2022 Lymphocytes Auto (Unsp spec) [#/Vol] 1.63 10*3/uL 0.83-4.51 [facility] Work Phone: Basophil percentageon 2021 Basophil percentage 0 SEEN /hpf 0-5 [facility] Work Phone: Basophils/100 WBC (Bld) 0.3 % 0-1 [facility] Work Phone: Bilirubin [Mass/Vol] 0.40 mg/dL 0.20-1.00 [facility] Work Phone: Comment on above: For patients on eltr ombopag therapy, use of Dimension [place] TBIL is not recommended. Chloride [Moles/Vol] 102 mmol/L 98-107 [facility] Work Phone: Eosinophils/100 WBC (Bld) 0.7 % 0-5 [facility] Work Phone: Glucose [Mass/Vol] 115 mg/dL 74-106 [facility] Work Phone: Comment on above: Fasting Glucose resu lt from 100 to 125 mg/dL suggests IMPAIRED HOMEOSTASIS per A.D.A. criteria. Neutrophils (Bld) [#/Vol] 6.7 10*3/uL 2.0-7.7 [facility] Work Phone: Neutrophils/100 WBC (Bld) 72.9 % 47-70 [facility] Work Phone: [phone] Potassium [Moles/Vol] 3.3 mmol/L 3.5-5.1 [facility] Work [facility]: [phone] Protein [Mass/Vol] 6.8 g/dL 6.4-8.2 [facility] Work Phone: Sodium [Moles/Vol] 139 mmol/L 136-145 [facility] Work Phone: WBC (Bld) [#/Vol] 9.2 10*3/uL 4.4-11.0 [facility] Work Phone: Bilirubin Test strip Ql (U)o n 07-20-2022 Bilirubin Ql (U) Negative Negative [facility] Work Phone: Blood erythrocytes count (nu mber/volume)on 07-20-2022 RBC (Bld) [#/Vol] 4.80 10*6/uL 4.2-5.4 [facility] Work Phone: Blood hemoglobin measurement (mass/volume)on 07-20-2022 Hemoglobin (Bld) [Mass/Vol] 14.8 g/dL 12.0-15.0 [facility] Work Phone: [phone] Blood lymphocytes/100 leukoc yteson 07-20-2022 Lymphocytes/100 WBC (Bld) 17.8 % 19-41 [facility] Work Phone: [phone] Blood monocytes/100 leukocyt eson 07-20-2022 Monocytes/100 WBC (Bld) 7.9 % 0-10 [facility] Work Phone: Blood platelet mean volumeon 07-20-2022 Platelet mean volume (Bld) [Entitic vol] 9.3 fL 6.2-12.0 [facility] Work Phone: Determination of erythrocyte mean corpuscular volume (MCV)on 07-20-2022 MCV (RBC) [Entitic vol] 95.2 fL 81-99 [facility] Work Phone: Hematocrit Auto (Bld) [Volum e fraction]on 07-20-2022 Hematocrit (Bld) [Volume fraction] 45.7 % 37-47 [facility] Work Phone: Ketones Test strip Ql (U)on 07-20-2022 Ketones Ql (U) Negative Negative [facility] Work Phone: Laboratory - Chemistry and C hemistry - challengeon 07-20-2022 ALP [Catalytic activity/Vol] 73 U/L 45-117 [facility] Work Phone: ALT [Catalytic activity/Vol] 13 U/L 13-56 [facility] Work Phone: CO2 [Moles/Vol] 30.0 mmol/L 21.0-32.0 [facility] Work Phone: Globulin (S) [Mass/Vol] 3.5 g/dL 2.2-4.2 [facility] Work Phone: Urea nitrogen/Creatinine [Mass ratio] 22.0 mg/mg 10-20 [facility] Work Phone: Laboratory - Hematology and Cell countson 07-20-2022 Erythrocyte distribution width (RBC) [Entitic vol] 45.4 fL 35.1-43.9 [facility] Work Phone: Erythrocyte distribution width (RBC) [Ratio] 12.8 % 11.6-14.6 [facility] Work Phone: Immature granulocytes/100 WBC (Bld) 0.400 % 0.0-0.9 [facility] Work Phone: Comment on above: IG% - Immature Granu locytes (promyelocytes, myelocytes and metamyelocytes) > 1% indicates that a LEFT SHIFT is Present. MCH (RBC) [Entitic mass] 30.8 pg 27.0-32.0 [facility] Work Phone: Nucleated RBC/100 WBC (Bld) [Ratio] 0 % 0-5 [facility] Work Phone: MCHC Auto (RBC) [Mass/Vol]on 07-20-2022 MCHC (RBC) [Mass/Vol] 32.4 g/dL 32-36 [facility] Work Phone: Mucus LM Ql (Urine sed)on Mucus Ql (Urine sed) 0 SEEN /hpf [facility] Work Phone: Nitrite Test strip Ql (U)on 07-20-2022 Nitrite Ql (U) Negative Negative [facility] Work Phone: No Panel Informationon 07-20 Estimated Creatinine Clearance Calc 35.15 ml/min [facility] Work Phone: Estimated GFR (MDRD) Amer 73 mL/min >60 [facility] Work Phone: Comment on above: GFR Calc Estimated GFR (MDRD) Non-Af Amer 61 mL/min >60 [facility] Work Phone: Comment on above: Non- GFR Calc Platelets bldon 07-20-2022 Platelets (Bld) [#/Vol] 207 10*3/uL 150-450 [facility] Work Phone: Protein Test strip Ql (U)on 07-20-2022 Protein Ql (U) Negative Negative [facility] Work Phone: Serum or plasma albumin guillermo urement (mass/volume)on 07-20-2022 Albumin [Mass/Vol] 3.3 g/dL 3.2-5.0 [facility] Work Phone: Serum or plasma albumin/glob ulin mass ratioon 07-20-2022 Albumin/Globulin [Mass ratio] 0.9 {ratio} 0.9-2.4 [facility] Work Phone: Serum or plasma calcium guillermo urement (mass/volume)on 07-20-2022 Calcium [Mass/Vol] 11.2 mg/dL 8.5-10.1 [facility] Work Phone: Serum or plasma creatinine m easurement (mass/volume)on 07-20-2022 Creatinine [Mass/Vol] 0.95 mg/dL 0.55-1.02 [facility] Work Phone: Comment on above: The validity of the calculated GFR & GFRAA in patients over 70 years has not been determined. Clinical correlation is essential. Serum or plasma urea nitroge n measurement (mass/volume)on 07-20-2022 Urea nitrogen [Mass/Vol] 21 mg/dL 7-18 [facility] Work Phone: Squamous epithelial cells de tection in urine sediment by light microscopyon 07-20-2022 Epithelial cells.squamous LM Ql (Urine sed) 0 SEEN /hpf 5-10 [facility] Work Phone: Thin prep Papanicolaou smear with manual screeningon 07-20-2022 Thin prep Papanicolaou smear with manual screening 15 U/L 15-37 [facility] Work Phone: Thin prep Papanicolaou smear with manual screening 7 5-15 [facility] Work Phone: Urine blood detectionon 07-07 RBC Ql (U) 10 /ul Negative [facility] Work Phone: RBC Ql (U) 0 SEEN /hpf 0-5 [facility] Work Phone: Urine clarityon 07-20-2022 Clarity (U) Sl. Cloudy Clear [facility] Work Phone: Urine color determinationon 07-20-2022 Color (U) Yellow Yellow [facility] Work Phone: Urine glucose detectionon Glucose Ql (U) Normal mg/dl Normal [facility] Work Phone: Urine leukocyte esterase det ection by dipstickon 07-20-2022 Leukocyte esterase Test strip Ql (U) 25 /ul Negative [facility] Work Phone: Urine pHon 07-20-2022 pH (U) 6.5 [pH] 5.0 - 8.0 [facility] Work Phone: Urine sediment bacteria coun t by microscopy (number/high power field)on 07-20-2022 Bacteria LM.HPF (Urine sed) [#/Area] 1 /[HPF] None Seen [facility] Work Phone: Urine specific gravity measu rementon 07-20-2022 Specific gravity (U) [Rel density] 1.010 1.002-1.030 [facility] Work Phone: Urobilinogen Auto test strip Ql (U)on 07-20-2022 Urobilinogen Ql (U) Normal mg/dl Normal [facility] Work Phone: Whole blood hemoglobin A1c/t otal hemoglobin ratio (mass fraction)on 07-20-2022 HbA1c (Bld) [Mass fraction] 5.3 % 3.8-5.6 [facility] Work Phone: Comment on above: Normal < 5.7 % Predi abetic 5.7 - 6.4 % Diabetic >or= 6.5 % Please note range changes. Vital Signs Date Time Vital Sign Value Performing Clinician Faci lity 03-13-2023 11:10-0400 Body mass index (BMI) [Ratio] 17.4 kg/m2 Dr. Amisha Torrez Work Phone: [facility] 03-13-2023 09:00-0400 Body temperature 97.7 [degF] Dr. Amisha Torrez Work Phone: [facility] 03-13-2023 09:00-0400 Diastolic blood pressure 101 mm[Hg] Dr. Amisha Torrez Work Phone: [facility] 03-13-2023 09:00-0400 Heart rate 65 /min Dr. Amisha Torrez Work Phone: [facility] 03-13-2023 09:00-0400 Respiratory rate 16 /min Dr. Amisha Torrez Work Phone: [facility] 03-13-2023 09:00-0400 SaO2% (BldA) [Mass fraction] 100 % Dr. Amisha Torrez Work Phone: [facility] 03-13-2023 09:00-0400 Systolic blood pressure 147 mm[Hg] Dr. Amisha Torrez Work Phone: [facility] 03-12-2023 08:28-0400 Body height 162.[address] Amisha Torrez Work Phone: [facility] 03-12-2023 08:28-0400 Body weight 46.[address] Amisha Torrez Work Phone: [facility] 03-11-2023 20:00-0400 Body temperature 97.9 [degF] Dr. Amisha Torrez Work Phone: [facility] 03-11-2023 20:00-0400 Diastolic blood pressure 85 mm[Hg] Dr. Amisha Torrez Work Phone: [facility] 03-11-2023 20:00-0400 Heart rate 65 /min Dr. Amisha Torrez Work Phone: [facility] 03-11-2023 20:00-0400 Respiratory rate 18 /min Dr. Amisha Torrez Work Phone: [facility] 03-11-2023 20:00-0400 SaO2% (BldA) [Mass fraction] 97 % Dr. Amisha Torrez Work Phone: [facility] 03-11-2023 20:00-0400 Systolic blood pressure 114 mm[Hg] Dr. Amisha Torrez Work Phone: [facility] 03-11-2023 18:07-0400 Body height 157.[address] Amisha Torrez Work Phone: [facility] 03-11-2023 18:07-0400 Body mass index (BMI) [Ratio] 19.1 kg/m2 Dr. Amisha Torrez Work Phone: [facility] 03-11-2023 18:07-0400 Body weight 47.[address] Amisha Torrez Work Phone: [facility] 01-25-2023 10:04-0400 Body height 162.6 cm Chiquis Haider MD Work Phone: [facility] 01-25-2023 10:04-0400 Body weight 45.36 kg Chiquis Haider MD Work Phone: [facility] 01-25-2023 10:04-0400 Diastolic blood pressure 101 mm[Hg] Chiquis Haider MD Work Phone: [facility] 01-25-2023 10:04-0400 Heart rate 90 /min Chiquis Haider MD Work Phone: [facility] 01-25-2023 10:04-0400 Systolic blood pressure 151 mm[Hg] Chiquis Haider MD Work Phone: [facility] 01-14-2023 14:16-0500 Body temperature 98 [degF] Dr. Amisha Torrez Work Phone: [facility] 01-14-2023 14:16-0500 Diastolic blood pressure 96 mm[Hg] Dr. Amisha Torrez Work Phone: [facility] 01-14-2023 14:16-0500 Heart rate 68 /min Dr. Amisha Torrez Work Phone: [facility] 01-14-2023 14:16-0500 Respiratory rate 18 /min Dr. Amisha Torrez Work Phone: [facility] 01-14-2023 14:16-0500 SaO2% (BldA) [Mass fraction] 96 % Dr. Amisha Torrez Work Phone: [facility] 01-14-2023 14:16-0500 Systolic blood pressure 125 mm[Hg] Dr. Amisha Torrez Work Phone: [facility] 01-14-2023 03:47-0500 Body mass index (BMI) [Ratio] 17.6 kg/m2 Dr. Amisha Torrez Work Phone: [facility] 01-13-2023 18:50-0500 Body height 162.[address] Amisha Torrez Work Phone: [facility] 01-13-2023 18:50-0500 Body weight 46.[address] Amisha Torrez Work Phone: [facility] 10-11-2022 12:57-0500 Body mass index (BMI) [Ratio] 17.8 kg/m2 Dr. Amisha Torrez Work Phone: [facility] 10-11-2022 12:57-0500 Body temperature 97.7 [degF] Dr. Amisha Torrez Work Phone: [facility] 10-11-2022 12:57-0500 Body weight 47.[address] Amisha Torrez Work Phone: [facility] 10-11-2022 12:57-0500 Diastolic blood pressure 80 mm[Hg] Dr. Amisha Torrez Work Phone: [facility] 10-11-2022 12:57-0500 Heart rate 81 /min Dr. Amisha Torrez Work Phone: [facility] 10-11-2022 12:57-0500 Respiratory rate 16 /min Dr. Amisha Torrez Work Phone: [facility] 10-11-2022 12:57-0500 SaO2% (BldA) [Mass fraction] 100 % Dr. Amisha Torrez Work Phone: [facility] 10-11-2022 12:57-0500 Systolic blood pressure 128 mm[Hg] Dr. Amisha Torrez Work Phone: [facility] 07-21-2022 14:09-0400 Body temperature 98.1 [degF] MD Ike Palacios Work Phone: [facility] Work Phone: 07-21-2022 14:09-0400 Diastolic blood pressure 85 mm[Hg] MD Ike Palacios Work Phone: [facility] Work Phone: 07-21-2022 14:09-0400 Heart rate 76 /min MD Ike Palacios Work Phone: [facility] Work Phone: 07-21-2022 14:09-0400 Respiratory rate 18 /min MD Ike Palacios Work Phone: [facility] Work Phone: 07-21-2022 14:09-0400 SaO2% (BldA) [Mass fraction] 96 % MD Ike Palacios Work Phone: [facility] Work Phone: 07-21-2022 14:09-0400 Systolic blood pressure 132 mm[Hg] MD Ike Palacios Work Phone: [facility] Work Phone: 07-21-2022 10:22-0400 Body height 162.56 cm MD Ike Palacios Work Phone: [facility] Work Phone: 07-21-2022 10:22-0400 Body mass index (BMI) [Ratio] 17.5 kg/m2 MD Ike Palacios Work Phone: [facility] Work Phone: 07-21-2022 10:22-0400 Body weight 46.32 kg MD Ike Palacios Work Phone: [facility] Work Phone: 07-20-2022 16:15-0400 Body temperature 98.2 [degF] [facility] Work Phone: 07-20-2022 16:15-0400 Diastolic blood pressure 106 mm[Hg] [facility] Work Phone: 07-20-2022 16:15-0400 Heart rate 72 /min [facility] Work Phone: 07-20-2022 16:15-0400 Respiratory rate 16 /min [facility] Work Phone: 07-20-2022 16:15-0400 SaO2% (BldA) [Mass fraction] 99 % [facility] Work Phone: 07-20-2022 16:15-0400 Systolic blood pressure 169 mm[Hg] [facility] Work Phone: 07-20-2022 12:58-0400 Body height 162.56 cm [facility] Work Phone: 07-20-2022 12:58-0400 Body mass index (BMI) [Ratio] 16.7 kg/m2 [facility] Work Phone: 07-20-2022 12:58-0400 Body weight 44.2 kg [facility] Work Phone: Encounters Encounter Date Encounter Type Care Provider Facility Start: 10-16-2024 Encounter for genera l adult medical examination without abnormal findings [facility] Start: 09-18-2024 End: 09-18-2024 ambulatory [facility] Facility:[facility] Start: 03-01-2024 End: 03-01-2024 ambulatory [facility] Work Phone: Start: 03-01-2024 End: 03-01-2024 Patient encounter procedure [facility] Work Phone: Start: 03-01-2024 End: 03-01-2024 ambulatory [facility] Facility:[facility] Start: 10-25-2023 End: 10-25-2023 ambulatory [facility] Facility:[facility] Start: 10-25-2023 End: 10-25-2023 ambulatory [facility] Facility:[facility] Start: 10-19-2023 End: 10-19-2023 ambulatory [facility] Work Phone: Start: 10-19-2023 End: 10-19-2023 Patient encounter procedure [facility] Work Phone: Start: 10-12-2023 End: 10-12-2023 ambulatory [facility] Work Phone: Start: 10-12-2023 End: 10-12-2023 Patient encounter procedure [facility] Work Phone: Start: 08-14-2023 End: 08-14-2023 ambulatory [facility] Work Phone: Start: 08-14-2023 End: 08-14-2023 Patient encounter procedure [facility], Gavin Carmen [facility] Start: 07-20-2023 End: 07-21-2023 ambulatory LA NEWBERRY Facility:[facility] Start: 06-26-2023 E-mail encounter fro m caregiver La Newberry MD Work Phone: [facility] Start: 06-26-2023 Patient encounter procedure La Newberry MD Work Phone: [facility] Comment on above: URGENT Appointment C ancelled Start: 03-12-2023 Non-patient / Non-visit Dr. Amisha Torrez Work Phone: [facility] Start: 03-11-2023 Non-patient / Non-visit Dr. Amisha Torrez Work Phone: [facility] Start: 03-11-2023 End: 03-13-2023 Evaluation and management of inpatient Dr. Amisha Torrez Work Phone: [facility] Start: 02-28-2023 End: 02-28-2023 ambulatory KEN VERDOUW Facility:[facility] Start: 02-28-2023 End: 02-28-2023 ambulatory Ken Verdouw OTR/L Work Phone: 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 ) Start: 02-15-2023 End: 02-15-2023 ambulatory Ken Verdouw OTR/L Work Phone: 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 Start: 01-25-2023 End: 01-26-2023 ambulatory ALONSO OBANDO Facility:[facility] Start: 01-25-2023 End: 01-25-2023 ambulatory ALONSO OBANDO Facility:[facility] Start: 01-25-2023 End: 01-25-2023 Patient encounter procedure Chiquis Haider MD Work Phone: [facility] Comment on above: Elevated blood press ure reading without diagnosis of hypertension [R03.0 (ICD-10-CM)] (Primary Dx); 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); Arterial ischemic stroke, MCA (middle cerebral artery), left, acute (HCC) Start: 01-14-2023 Non-patient / Non-visit Dr. Amisha Torrez Work Phone: [facility] Start: 01-14-2023 Non-patient / Non-visit Dr. Amisha Torrez Work Phone: [facility] Start: 01-13-2023 End: 01-14-2023 Evaluation and management of inpatient [facility] Am[facility]rez [facility] Start: 01-13-2023 End: 01-14-[address] Amisha Torrez Work Phone: [facility] Work Phone: Start: 10-11-2022 End: 10-11-[address] Amisha Torrez Work Phone: [facility] Start: 09-14-2022 End: 09-14-2022 ambulatory MD Ike Palacios Work Phone: [facility] Work Phone: Start: 09-14-2022 End: 09-14-2022 Patient encounter procedure MD [facility] Palacios [facility] Start: 07-21-2022 Non-patient / Non-visit MD Ike Palacios Work Phone: [facility] Start: 07-21-2022 Non-patient / Non-visit MD Ike Palacios Work Phone: [facility] Start: 07-21-2022 Non-patient / Non-visit MD Ike Palacios Work Phone: [facility] Start: 07-20-2022 Non-patient / Non-visit MD Ike Palacios Work Phone: [facility] Start: 07-20-2022 End: 07-21-2022 Evaluation and management of inpatient [facility] Start: 07-20-2022 End: 07-21-2022 observation encounter MD Ike Palacios Work Phone: [facility] Work Phone: Start: 07-20-2022 End: 07-20-2022 Patient encounter procedure Chris Morin TILE MOLDERShannaETCH OPERATOR [employer] Work Phone: [facility] Comment on above: Confusion (Primary [...] Author Start: 07-07-2023 Influenza vaccination INFLUENZA (#1) [facility] Start: 03-13-2023 Patient discharge [facility] Start: 03-11-2023 Following clinical pathway protocol [facility] Start: 03-11-2023 Assessment of risk o f venous thromboembolism [facility] Start: 03-11-2023 Cardiac monitoring [facility] Start: 03-11-2023 Catheterization of vein [facility] Start: 03-11-2023 Elevation of head of bed [facility] Start: 03-11-2023 Exercises [facility] Start: 03-11-[address] anned interventions [facility] Start: 03-11-2023 Insertion of cathete r into peripheral vein [facility] Start: 03-11-2023 Measuring intake and output [facility] Start: 03-11-2023 Notification of physician [facility] Start: 03-11-2023 Oxygen therapy [facility] Start: 03-11-2023 Patient referral to dietitian [facility] Start: 03-11-2023 Providing care accor ding to standard [facility] Start: 03-11-2023 Provision of activit y privileges [facility] Start: 03-11-2023 Referral to occupati onal therapist [facility] Start: 03-11-2023 Referral to service [facility] Start: 03-11-2023 Tobacco use cessatio n education [facility] Start: 03-11-2023 [facility] Start: 03-11-2023 Troponin I measurement [facility] Start: 03-11-2023 Urinalysis complete panel - Urine [facility] Start: 03-11-2023 Admission procedure [facility] Start: 03-11-2023 Oxygen therapy [facility] Start: 03-11-2023 [facility] Start: 01-25-2023 End: 03-27-2023 Nuclear Ab [Presence] in Serum by Immunoassay [facility] Work Phone: Comment on above: Expected: 01/25/2023 , Expires: 03/27/2023 Start: 01-25-2023 End: 03-27-2023 Rheumatoid factor [Units/volume] in Serum or Plasma [facility] Work Phone: Comment on above: Expected: 01/25/2023 , Expires: 03/27/2023 Start: 01-14-2023 Verification routine [facility] Start: 01-14-2023 Patient discharge [facility] Start: 01-14-2023 Application of intermittent pneumatic compression device [facility] Start: 01-13-2023 Following clinical pathway protocol [facility] Start: 01-13-2023 Assessment of risk o f venous thromboembolism [facility] Start: 01-13-2023 Cardiac monitoring [facility] Start: 01-13-2023 Catheterization of vein [facility] Start: 01-13-2023 Continuous pulse oximetry [facility] Start: 01-13-2023 Elevation of head of bed [facility] Start: 01-13-2023 Exercises [facility] Start: 01-13-[address] anned interventions [facility] Start: 01-13-2023 Insertion of cathete r into peripheral vein [facility] Start: 01-13-2023 Measuring intake and output [facility] Start: 01-13-2023 Notification of physician [facility] Start: 01-13-2023 Oxygen therapy [facility] Start: 01-13-2023 Providing care accor ding to standard [facility] Start: 01-13-2023 Provision of activit y privileges [facility] Start: 01-13-2023 Referral to occupati onal therapist [facility] Start: 01-13-2023 Referral to service [facility] Start: 01-13-2023 Speech therapy assessment [facility] Start: 01-13-2023 Tobacco use cessatio n education [facility] Start: 01-13-2023 [facility] Start: 01-13-2023 Admission procedure [facility] Start: 11-06-2022 ADVANCE DIRECTIVE DISCUSSION ADVANCE DIRECTIVE DISCUSSION [facility] Start: 11-06-2022 DEPRESSION ASSESSMENT DEPRESSION ASS ESSMENT [facility] Start: 07-21-2022 Patient discharge [facility] Work Phone: Start: 07-21-2022 Blood chemistry [facility] Work Phone: Start: 07-20-2022 Referral to vascular surgeon [facility] Work Phone: Start: 07-20-2022 Following clinical pathway protocol [facility] Work Phone: Start: 07-20-2022 Ambulation without limitation [facility] Work Phone: Start: 07-20-2022 Assessment of risk o f venous thromboembolism [facility] Work Phone: Start: 07-20-2022 Catheterization of vein [facility] Work Phone: Start: 07-20-2022 Insertion of cathete r into peripheral vein [facility] Work Phone: Start: 07-20-2022 Measuring intake and output [facility] Work Phone: Start: 07-20-2022 Providing care accor ding to standard [facility] Work Phone: Start: 07-20-2022 Referral to occupati onal therapist [facility] Work Phone: Start: 07-20-2022 Referral to service [facility] Work Phone: Start: 07-20-2022 Speech therapy assessment [facility] Work Phone: Start: 07-20-2022 [facility] Work Phone: Start: 07-20-2022 Magnetic resonance angiography of head without contrast MRA Head ONLY without Contrast [facility] Work Phone: Start: 07-20-2022 MRI of brain without contrast Brain without Contrast [facility] Work Phone: Start: 07-20-2022 MRI of neck vessels with contrast MRA Neck WITH and W/O Contrast [facility] Work Phone: Start: 07-20-2022 Verification routine [facility] Work Phone: Start: 07-20-2022 Admission procedure [facility] Work Phone: Start: 07-20-2022 Patient referral to dietitian [facility] Work Phone: Start: 07-07-2022 Influenza vaccination INFLUENZA (#1) [facility] Start: 03-05-2022 COVID-19 VACCINE (3 - Booster for Susan series) COVID-19 VACCINE (3 - Booster for Susan series) [facility] Start: 12-30-2021 COVID-19 VACCINE (4 - Booster for Susan series) COVID-19 VACCINE (4 - Booster for Susan series) [facility] Start: 11-06-2021 ADVANCE DIRECTIVE DISCUSSION ADVANCE DIRECTIVE DISCUSSION [facility] Start: 05-06-2019 Urine microalbumin profile DTAP,TDAP,TD (3 - Td or Tdap) [facility] Start: 10-15-2013 DIABETES SCREEN DIABETES SCREEN [facility] Start: 2010 PNEUMOCOCCAL: 65+ (1 - PCV) PNEUMOCOCCAL: 65+ (1 - PCV) [facility] Start: 1995 SHINGRIX VACCINE (1 of 2) SUMMERS GRIX VACCINE (1 of 2) [facility] Start: 1963 HEPATITIS C SCREENING HEPATITIS C LA ARJUN [facility] Start: 1957 Adult depression screening assessment DEPRESSION SCREENING [facility] Anion gap measurement [facility] Work Phone: BUN/Creatinine ratio [facility] Work Phone: Calcium [Mass/volume ] in Serum or Plasma [facility] Work Phone: Carbon dioxide, tota l [Moles/volume] in Serum or Plasma [facility] Work Phone: Chloride [Moles/volu me] in Serum or Plasma [facility] Work Phone: Creatinine [Moles/vo lume] in Serum or Plasma [facility] Work Phone: End: 01-26-2024 EPIL EEG ROUTINE EPIL EEG ROUTINE NEUROLOGY Routine Arterial ischemic stroke, MCA (middle cerebral artery), left, acute (HCC) 1 Occurrences starting 01/25/2023 until 01/26/2024 [facility] Work Phone: Comment on above: 1 Occurrences starti ng 01/25/2023 until 01/26/2024 Glucose [Mass/volume ] in Serum or Plasma [facility] Work Phone: Measurement of renal function [facility] Work Phone: OT PLAN OF CARE CERTIFICATION OT PLAN OF CARE CERTIFICATION Procedures Routine 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) Ordered: 02/16/2023 [facility] Work Phone: Comment on above: Ordered: 02/16/2023 Patient Education TIA Dc [facility] Work Phone: Patient referral [facility] Work Phone: Potassium [Moles/vol ume] in Serum or Plasma [facility] Work Phone: Sodium [Moles/volume ] in Serum or Plasma [facility] Work Phone: Urea nitrogen [Mass/volume] in Serum or Plasma [facility] Work Phone: [facility] Immunizations Immunization Date Immunization Notes Care Provider Pato raymond 08-06-2022 influenza, injectabl e, quadrivalent, preservative free [facility] 08-06-2022 influenza, seasonal, injectable Dr. Amisha Torrez Work Phone: [facility] 11-06-2020 Jessica ([employer]) MD Ike Palacios Work Phone: [facility] 12-07-2017 influenza, high dose seasonal, preservative-free Chris Morin APRN.ETCH OPERATOR [employer] Work Phone: [facility] 08-20-2010 influenza virus vaccine, unspecified formulation Chris Morin APRN.ETCH OPERATOR [employer] Work Phone: [facility] Work Phone: 05-06-2009 diphtheria and tetan us toxoids, adsorbed for pediatric use Chris Morin TILE MOLDER.ETCH OPERATOR [employer] Work Phone: [facility] Work Phone: 09-19-2008 tetanus toxoid, reduced diphtheria toxoid, and acellular pertussis vaccine, adsorbed Chris Presleyascencion TILE MOLDER.ETCH OPERATOR [employer] Work Phone: [facility] Work Phone: Payers Date Payer Category Payer Self-pay [id number] 2021 Private Health Insurance [id number] 2021 Private Health Insurance UNITED [employer]I UNITED [employer]ENI SUPPLEMENT [id number] 2021-Present [phone] [address] [place] [address] Indemnity [id number] 2011 Private Health Insurance [facility] [id number] 2010 Medicare [id number] 2010 Medicare MEDICARE MEDICAR E A AND B [id number] 2010-Present [phone] [address] [address] [place] [address] Medicare [id number] Unknown [id number] Unknown [id number] Unknown [id number] Unknown [id number] Social History Date Type Detail Facility Start: 07-20-2022 End: 10-25-2023 Tobacco smoking status NHIS Unknown if ever smoked [facility] Start: 02-24-2019 None [facility] Start: 02-24-2019 Alone [facility] Start: 03-11-2019 Cigarettes [facility] Start: 1945 Sex Assigned At Female [facility] Start: 10-15-2010 Tobacco smoking stat us NHIS Never smoked tobacco [facility] Work Phone: History of tobacco use Cigarette Smoker [facility] Work Phone: Start: 10-15-2010 End: 06-26-2023 Cigarettes smoked current (pack per day) - Reported 0.1 [facility] History of tobacco use Passive smoker [facility] Work Phone: Start: 07-20-2022 End: 01-25-2023 Alcohol intake Current drinker of alcohol (finding) [facility] Start: 05-21-2007 History SDOH Alcohol Comment social [facility] Start: 10-15-2010 Tobacco Comment 10/ wk [facility] Start: 07-10-2022 End: 07-20-2022 Exposure to SARS-CoV-2 (event) Not sure [facility] Start: 01-25-2023 End: 06-26-2023 Tobacco use panel [facility] National Score (1-10 0), lower number is lower risk 66 [facility] Start: 09-20-2021 Gender identity Identifies as female gender (finding) [facility] Goals Date Patient Goal Desired Activity /State Functional Status Date Assessment Result Facility 03-13-2023 Functional status Activity Abili ty Standby Assist [facility] Work Phone: 03-12-2023 Functional status Ambulates [facility] Work Phone: 01-14-2023 Functional status Ambulates [facility] Work Phone: 07-21-2022 Functional status Activity Ability Indepe ndent [facility] Work Phone: 07-21-2022 Functional status Patient Activi ty Ambulates;Up ad behzad [facility] Work Phone: Mental Status Date Assessment Result Facility 03-13-2023 Cognitive function Voice/Name [facility] Work Phone: 03-11-2023 Cognitive function Voice/Name [facility] Work Phone: 01-14-2023 Cognitive function Voice/Name [facility] Work Phone: 07-21-2022 Cognitive function Voice/Name [facility] Work Phone: 07-20-2022 Cognitive function Voice/Name [facility] Work Phone: Clinical Notes 07-20-2022 to 07-20-2023 Note Date & Type Note Facility 07-20-2023 Note HNO ID: [id number] Author: La Newberry MD Service: ? Author Type: Physician Type: Progress Notes Filed: 08/14/2023 8:21 PM Note Text: [facility] Initial Visit Consultation is requested by: Consultation requested by Dr. Obando for an opinion regarding white matter disease. My final recommendations will be communicated back to the requesting physician by way of shared medical record or letter via US mail PCP: Alonso Obando [address] [place] [address] [place] [address] CEREBROVASCULAR HISTORY Sheela Tadeo is a 77 [...] part of the assessment. - Face, Velvet, Yarsanism, Marlen, Red Attention: - Repeat in forward [...] - Face 11/06 - Velvet 11/06 - Yarsanism - Marlen - Red 11/06 Orientation - Date 0/1 - Month 11/06 - Year 11/06 - Day 11/06 - Place 11/06 - [facility] 11/06 Total Points Scored 25/30 Normal [...] TAB) Take one (more content not included)... [facility] 03-13-2023 Discharge summary Note Date/Time March 13, 2023 10:52a m [facility] Medical Records Department [address] [place] [address] Instructions for Home/Discharge Instructions 03/13/23 1050 MR#: [id number] Acct: [id number] Name: SHEELA TADEO Rep #:[id number] : [...] DO; Dr. Amisha Torrez MD ~ Signed [facility] Work Phone: 1(195) 129-577605-07-[address] Farr [facility] March 12, 2023 8:58am Note Date/Time March 12, 2023 7:35am [facility] Medical Records Department [address] [place] [address] Progress Note - Hospitalist 03/12/23 0732 MR#: [id number] Acct: [id number] Name: SHEELA TADEO Rep #:[id number] : 1945 77 From: Kenny Farr MD PCP: Dr. Amisha Torrez MD Status:ADM IN Location: [place] [id number] Reason for Visit Reason for Visit: [...] % (Auto) 61.7, Lymph % (Auto) 27.8, Benson% (Auto) 8.1, Eos % (Auto) 1.6, Baso [...] Clarity Clear, Urine pH 6.5, Ur Specific [place] 1.015, Urine Protein 15 H, Urine Glucose [...] documentation, 40Minutes Charges/Coding Visit Charges Inpatient E&M: 83011 Subs Hosp L2 03/12/23 0858 <Electronically signed by Kenny Farr MD> Cosigner Signature (if applicable): CC: ~ Signed [facility] Work Phone: 1(482) 322-717305-06-[address] Azevedo [facility] March 11, 2023 9:13pm Note Date/Time March 11, 2023 6:00pm [facility] Medical Records Department [address] [place] [address] Emergency Department Summary 03/11/23 MR#: [id number] Acct: [id number] Name: SHEELA TADEO Rep #:[id number] : 1945 77 From: Rafat Azevedo MD PCP: Dr. Amisha Torrez MD Status:ADM IN Location: [place] [address] HPI History of Present Illness Chief Complaint: Neuro S/Sx Informant: patient and family Narrative Narrative: History is per patient but more per her son who is with her when the events happened and is present now. This patient presents with strokelike symptoms. She denied prior stroke but hersons and srucezkq-wr-xxv states that she has had mini strokes [...] These were out of character for her. [facility] Medical History HTN (hypertension) Macular degeneration Smoker [...] Std Deviation 47.3 H RDW Coeff of Folrence 13.2 Plt Count 267 MPV 8.9 Immature Gran % (Auto) 0.100 Neut % (Auto) 61.7 Lymph % (Auto) 27.8 Benson % (Auto) 8.1 Eos % (Auto) 1.6 [...] (Auto) Neut % (Auto) Lymph % (Auto) Benson % (Auto) Eos % (Auto) Baso % [...] The above Results were Read Back by Mickye Jose (Brooks) to Rafat Azevedo MD, and [...] blood pressure Disposition Disposition: Acute Care Hospital [facility] Discharge Date/Time: 03/11/23 20:19 What to do if you have Problems For any increased pain, shortness of breath, bleeding, nausea or vomiting, chestpain, or any unexpected problems, contact your Primary Care Provider. Call [facility] ([phone]) or report to the closest Emergency Room. [...] or depression. Minimal baseline variation. No ectopy. WV interval, QRS duration and QTc normal 03/11/232112<Electronically signed by Rafat Azevedo MD> Cosigner Signature (if applicable): cc: Dr. Amisha Torrez MD ~* Signed [facility] Work Phone: 1(469) 216-948205-06-2023 History and physical note Author Dr. Naranjo [facility] March 11, 2023 8:19pm Note Date/Time March 11, 2023 8:19pm [facility] Medical Records Department [address] [place] [address] H&P Exam - Hospitalist 03/11/232009 MR#: [id number] Acct: [id number] Name: SHEELA TADEO Rep #:[id number] : 1945 77 From: Hai Naranjo DO PCP: Dr. Amisha Torrez MD Status:ADM IN Location: [facility] [id number]- [id number] HPI - General General Date of [...] put the proper way. They were in [place] for the game when he came back, [...] children read in a car with her. [facility] Medical History HTN (hypertension) Macular degeneration Smoker [...] and oriented to place Coordination / Balance: thamea-pb-hjby test normal and obcs-hu-qmoe test normal Speech: speech normal Psych affect [...] % (Auto) 61.7, Lymph % (Auto) 27.8, Benson% (Auto) 8.1, Eos % (Auto) 1.6, Baso [...] molecular heparin. Charges/Coding Visit Charges Inpatient E&M: 76447 Init Hosp L3 03/11/232018 <Electronically signed by Hai Naranjo DO> Cosigner Signature (if applicable): CC: Dr. Hai Naranjo DO; Dr. Amisha Torrez MD~ Signed [facility] Work Phone: 1(655) 800-571204-25-2023 NoteHNO ID: [id number] Author: Ken Gabriel OTR/L Service: ? 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 Billing: Drivers Follow Up per 60 min (89551): 1:1 time 60 min Total time: 60 minutes DAMARIS Ramírez, CDI/PD Medicaid Nurse Wearing Apparel Assembler documented [facility] Miscellaneous Notes* Telephone Encounter - [...] Tadeo, 1945). Yes Number to return call [phone] Reason for Call: [facility] is calling to assist patient with Sooner appointment with Dr. Newberry. He states patient is being referred to Dr. Newberry by Dr. Chiquis Haider. Patient Dx TIA, Brain Lesion and according to family friend a [employer] Applier who was on 3-way. Patient has complex vascular issue. Patient currently schedule 05/15. Please advise whether patient can be scheduled in a new slot for possible sooner appointment. Please review and advise Neelam Jeronimo. Thanks. Thank you calling [facility]. You will receive a return call within 48hours ( or 2 business days if close to the weekend). If you feel that this is an urgent issue and needs immediate attention, it is recommended that you contact your primary care provider office or proceed to your nearest Urgent Care Center of Emergency Room ED for evaluation/treatment. documented in [facility]04-13-2023 Miscellaneous Notes* Addendum Note - DAMARIS Ramírez - 02/16/2023 1:51 PM EDTAddended by: KEN GABRIEL on: 02/16/2023 01:51 PM Modules accepted: Orders documented in this encounterT[facility]04-12-2023 NoteHNO ID: [id number] Author: DAMARIS Ramírez Service: ? Author Type: Occupational Therapist Type: Progress Notes Filed: 02/16/2023 1:49 PM Note Text: Episode Visit Count: 1 Therapist That Will Accept/Oversee The Plan Of Care: nAna Gabriel Start of Care Date: 02/15/23 Onset [...] 4 days/week. She currently owns a 2017 [employer] 4 door SUV with automatic transmission. State: [place] License/Permit #: [id number] Expires: 2026 Restrictions: Right out rear view [...] Driving: Right UE: Sufficient Left UE: Sufficient Solar Crew Member: Sufficient Right LE: Sufficient Left LE: Sufficient [...] i (more content not included)... [facility]04-12-[facility] History of Present illness Narrative* Ken [...] / Current Exercise: walking Hobbies / Interests: Phase H[employer] Imagings Home Environment Patient Lives With: Self/Alone Assistance [...] 4 days/week. She currently owns a 2017 [employer] 4 door SUV with automatic transmission. State: [place] License/Permit #: [id number] Expires: 2026 Restrictions: Right out rear view [...] Driving: Right UE: Sufficient Left UE: Sufficient Solar Crew Member: Sufficient Right LE: Sufficient Left LE: Sufficient [...] Recall: WNL @ 6/6 digits Visual Scanning/Attention: Jasper Making Part A (sec): 58 sec Jasper Making Part B (sec): 207 sec 50th [...] Compatible with Driving and adequate with IADLs [place] Medicaid Nurse Simulator: Simple Brake Reaction Time: Average Distance: [...] Education/Teach Back: States/Identifies, Return Demonstration TREATMENT: Evaluation Self-Senior Care Management: 1: Educated on safety throughout the [...] 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 The above goals and plan of care were discussed and agreed upon by patient/family. Billing: Evaluation - Moderate Complexity (46027) Self Care / Home Management (59931): 1:1 time: 30 minutes (2 units: 23-37 mins) Community /Work Re-integration (26465): 1:1 time: 45 minutes (3 units: 38-52 mins) Total time: 105 minutes DAMARIS Ramírez, CDI/PD Medicaid Nurse Wearing Apparel Assembler documented in this encounterTwin [facility]03-23-2023 NoteHNO ID: [id number] Author: Chiquis Haider MD Service: ? Author Type: Physician Type: Progress Notes Filed: 01/26/2023 11:41 AM Note Text: MRIMRA of brain was reviewed with the neuro-radiologist at [facility]: severe bilateral white matter disease. No micro-bleeds. MRA of brain and neck are normalNorthern [facility]03-23-2023 History of Present illness Narrative* Chiquis Haider MD - 01/26/2023 11:40 AM EDT MRIMRA of brain was reviewed with the neuro-radiologist at [facility]: severe bilateral white matter disease. No micro-bleeds. MRA of brain and neck are normal * Chiquis Haider MD - 01/25/2023 11:00 AM EDT [facility] Initial Visit Consultation is requested by: SELF PCP: Alonso Obando [address] [place] [address] [place] [address] CEREBROVASCULAR HISTORY Sheela Tadeo is a 77 [...] vibration. Coordination: Rapid alternating movements symmetric bilaterally. Lsngai-rv-ypzf, agsa-ke-vysn without dysmetria bilaterally. Gait: Narrow-based, normal spaced and stable without assistance. Tandem gait is stable. LABS Cholesterol: No results found for: CHOL LDL Chol, Addis (mg/dL) Date Value 10/15/2010 104 No results [...] Continue BP medications Follow up with the [facility] for control of hypertension Advised compliance [...] which included preparing to see the patient, jlme-lj-fzgm patient care, completing clinical documentation, obtaining and/or reviewing separately obtained history, performing a medically appropriate examination, counseling and educating the patient/family/caregiver, ordering medications, tests, or procedures, independently interpreting results (not separately reported), and communicating results to the patient/family/caregiver SIGNATURE Chiquis Haider MD CC SELF Alonso Obando [address] [place] [address] [place] [address] documented [facility] NoteHNO ID: [id number] Author: Chiquis Haider MD Service: ? Author Type: Physician Type: Progress Notes Filed: 07/07/2023 9:46 AM Note Text: [facility] Initial Visit Consultation is requested by: SELF PCP: Alonso Obando [address] [place] [address] [place] [address] CEREBROVASCULAR HISTORY Sheela Tadeo is a 77 [...] vibration. Coordination: Rapid alternating movements symmetric bilaterally. Wigvih-wg-pjev, fdiy-db-ytcu without dysmetria bilaterally. Gait: Narrow-based, normal spaced and stable without assistance. Tandem gait is stable. LABS Cholesterol: No results found for: CHOL LDL Chol, Addis (mg/dL) Date Value 10/15/2010 104 No results [...] at al (more content not included)...[facility]03-10-[address] Munguia [facility] January 13, 2023 6:27pm Note Date/Time January 13, 2023 5:0 1pm [facility] Medical Records Department [address] [place] [address] Emergency Department Summary 01/13/23 MR#: [id number] Acct: [id number] Name: SHEELA TADEO Rep #:[id number] : 1945 77 From: Constantino Munguia MD PCP: Dr. Amisha Torrez MD Status:ADM ELLA Location: [place] [address]- 1 HPI History of Present Illness Chief [...] 17:56 EST Reading Location ID and State: [facility] / [place] , Service support , EKG Initial EKG: Attestation: I personally reviewed and interpreted this EKG as follows: Interpretation: Sinus Rhythm (Heart rate is 96. There are premature atrial complexes. There is artifact which the computer is reading ST and T waveabnormality. WV interval is 144 ms. Cures duration 80 ms. QT duration 336 ms. [place] is normal.) and No Acute Injury Pattern Management Discussion w/another healthcare provider: Hospitalist Discharge Plan Triage Chief Complaint: Neuro S/Sx ED Provider: Constantino Munguia Dx/Rx/DC Orders Primary Care Provider: Amisha Torrez What to do if you have Problems For any increased pain, shortness of breath, bleeding, nausea or vomiting, chestpain, or any unexpected problems, contact your Primary Care Provider. Call [facility] ([phone]) or report to the closest Emergency Room. Call 911 if necessary. 01/13/231826 <Electronically signed by Constantino Munguia MD> Cosigner Signature (if applicable): CC: Dr. Amisha Torrez MD ~ Signed [facility] Work Phone: 1(768) 589-799503-10-2023 History and physical note Author Dr. Ruffin [facility] January 14, 2023 2:33pm Note Date/Time January 13, 2023 5:5 6pm [facility] Medical Records Department [address] [place] [address] H&P Exam - Hospitalist 01/13/23 175 MR#: [id number] Acct: [id number] Name: SHEELA TADEO Rep #:[id number] : 1945 77 From: Quin Ruffin MD PCP: Dr. Amisha Torrez MD Status:ADM ELLA Location: [place] [address] HPI - General General Date of Admission: 01/13/23 Date of Service: 01/13/23 Chief Complaint: neuro symptoms HPI Narrative SHEELA TADEO, is a Fwith a [facility] as outlined who presents via the ED [...] for expressive aphasia concerning for acute CVA. [facility] Medical History HTN (hypertension) Macular degeneration Smoker [...] [facility] and [facility] counseled extensively about different types of CODE STATUS including full code, DNR CCA and DNR CCA. Patient couldnt decide about her code status and wanted more time to think about it. She did understand that in light of her not having made a decision, her default code status would be full code. * Total vicp-mo-fuqo time 17 minutes. Total time spent on evaluation and management of patient, reviewing chart and specialist notes, discussing plan with patient, her son and daughter in law, discussion with nursing and ancillary staff as well as documentation in EMR: 58 mins Charges/Coding Visit Charges Inpatient E&M: 31906 Init Hosp L2 Procedures Hospitalists Procedures: 90341 Advncd Care Plan 30 Min 01/14/23 1433 <Electronically signed by Quin Ruffin MD> Cosigner Signature (if applicable): CC: Dr. Amisha Torrez MD; Dr. Quin Ruffin MD~ Signed [facility] Work Phone: 1(189) 438-748509-14-2022 History of Present illness Narrative* Chris Morin [...] plan of care. Will accompany patient to [facility]. Chris Morin APRN.ETCH OPERATOR [employer] documented in this encounterT[facility] HospitalDism[facility] summary Author Dr. Ruffin [facility] January 14, 2023 2:20pm Note Date/Time January 14, 2023 2:0 8pm [facility] Medical Records Department [address] [place] [address] Discharge Summary 01/14/23 1404 MR#: [id number] Acct: [id number] Name: SHEELA TADEO Rep #:[id number] : 1945 77 From: Quin Ruffin MD PCP: Dr. Amisha Torrez MD Status:ADM ELLA Location: [place] [address] Providers Date of Admission: 01/13/23 Date of [...] 74.7 H, Lymph % (Auto) 17.2 L, Benson % (Auto) 6.4, Eos % (Auto) 0.6, [...] (Auto) 44.7 L, Lymph % (Auto) 40.4, Benson % (Auto) 8.7, Eos % (Auto) 4.6, [...] 17:54 EST Reading Location ID and State: [facility] / [place] , Service support , ADDENDUM: 01/13/23 180 [...] [Primary Care Provider] - Within 2 Weeks Mdeardo Garza MD [Non-Staff -Ordering Privileges] - Within 2 Weeks Disposition Disposition (needs filled in before D/C Order can be placed): Home, Self Care Charges/Coding Visit Charges Inpatient E&M: 21506 Disch Hosp >30min 01/14/23 1420 <Electronically signed by Quin Ruffin MD> Cosigner Signature (if applicable): CC: Dr. Amisha Torrez MD; Dr. Quin Ruffin MD~ Signed [facility] Work Phone: evaluation note* Diagnosis Onset Date Resolution Status Confusion acute Smoker acute TIA (transient ischemic attack) acute HTN (hypertension) chronic [facility] Work Phone: evaluation note* Diagnosis Confusion- Primary Unspecified psychosis documented in this encounter [facility] note* Diagnosis Onset Date Resolution Status Confusion resolved [facility] Work Phone: evaluation note* Diagnosis Onset Date Resolution Status Stroke-like symptoms resolve d [facility] Work Phone: Evaluation note* Diagnosis Elevated blood pressure reading without diagnosis of hypertension [R03.0 (ICD-10-CM)]- Primary Elevated blood pressure reading without diagnosis of hypertension 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) Cerebral thrombosis with cerebral infarction Arterial ischemic stroke, MCA (middle cerebral artery), left, acute (HCC) Unspecified cerebral artery occlusion with cerebral infarction documented in this encounter [facility] note* Diagnosis 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)- Primary Cerebral thrombosis with cerebral infarction [facility] 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)- Primary Cerebral thrombosis with cerebral infarction documented in this encounter [facility] note* Diagnosis Onset Date Resolution Status Stroke-like symptoms resolve d Confusion acute [facility] Work Phone: Evaluation note* Diagnosis Onset Date Resolution Status Stroke-like symptoms resolve d Confusion acute History of high blood pressure acute TIA on medication acute Transient confusion acute [facility] Work Phone: Evaluation noteNo assessment information available [facility] Work Phone: History and physical note Author Dr. Naranjo [facility] March 11, 2023 8:19pm Note Date/Time March 11, 2023 8:19pm [facility] Medical Records Department [address] [place] [address] H&P Exam - Hospitalist 03/11/232009 MR#: [id number] Acct: [id number] Name: SHEELA TADEO Rep #:[id number] : 1945 77 From: Hai Naranjo DO PCP: Dr. Amisha Torrez MD Status:ADM IN Location: [facility] [id number]- 1 HPI - General General Date of [...] put the proper way. They were in [place] for the game when he came back, [...] children read in a car with her. [facility] Medical History HTN (hypertension) Macular degeneration Smoker [...] and oriented to place Coordination / Balance: esrpue-cr-plah test normal and mewr-jp-rskg test normal Speech: speech normal Psych affect [...] % (Auto) 61.7, Lymph % (Auto) 27.8, Benson% (Auto) 8.1, Eos % (Auto) 1.6, Baso [...] Back by Mickey Jose (Brooks) to Rafat Azveedo MD, and understanding confirmed on 03/11/2023 18:26:49 [...] molecular heparin. Charges/Coding Visit Charges Inpatient E&M: 06604 Init Hosp L3 03/11/232018 <Electronically signed by Hai Naranjo DO> Cosigner Signature (if applicable): CC: Dr. Hai Naranjo DO; Dr. Amisha Torrez MD~ Signed [facility] Work Phone: Chief Complaint and Reason [...] Yes July 20, 2022 1:07pm Power of Cell Tender Helper Yes July 1:07pm Name of Medical Power of Cell Tender Helper Michelle July 20, 2022 1:07pm Advance Directive Response Recorded Date/ Time Name of Medical Power of Cell Tender Helper Michelle Tadeo July 20, 2022 4:15pm Living Will Yes July 20, 2022 4:15pm Power of Cell Tender Helper Yes July 4:15pm Advance Directive Response Recorded Date/ Time Name of Medical Power of Cell Tender Helper Michelle Tadeo July 20, 2022 3:15pm Living Will Yes July 20, 2022 3:15pm Power of Cell Tender Helper Yes July 3:15pm Advance Directive Response Recorded Date/ Time Name of Medical Power of Cell Tender Helper Michelle Deleon January 13, 2023 6:55pm Living Will Yes January 13, 2023 6:55pm Power of Cell Tender Helper Yes January 13 6:55pm Advance Directive Response Recorded Date/ Time Name of Medical Power of Cell Tender Helper Michelle Deleon January 13, 2023 7:55pm Name of Medical Power of Cell Tender Helper michelle tadeo/ daughter March 11, 2023 5:51pm Living Will Yes March 11, 2023 5: 51pm Power of Cell Tender Helper Yes March 11, 2023 5:51pm Advance Directive Response Recorded Date/ Time Name of Medical Power of Cell Tender Helper Michelle Deleon January 13, 2023 7:55pm Name of Medical Power of Cell Tender Helper michelle tadeo/ daughter March 11, 2023 8:26pm Living Will Yes March 11, 2023 8: 26pm Power of Cell Tender Helper Yes March 11, 2023 8:26pm Advance Directive Response Recorded Date/ Time Living Will Yes March 11, 2023 8: 26pm Power of Cell Tender Helper Yes March 11, 2023 8:26pm Advance Directive Response Recorded Date/ Time Living Will Yes March 11, 2023 7: 26pm Power of Cell Tender Helper Yes March 11, 2023 7:26pm Reason for Referral Specialty Diagnoses / Procedures Referred By Trina griffiths Referred To Contact [facility] Diagnoses 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) Procedures CONSULT TO DIVE SUPERINTENDENT OCCUPATIONAL THERAPY [facility] COMPLEX 60 MINS Chiquis Haider MD [address] [place] [address] [facility] [place] [address] [place] [address] Referral ID Status Reason Start Date Expiration Date Visits Requested Visits Authorized [id number] Authorized PCP Requested Referral Auto-Generate d Referral 01/25/2023 01/25/2024 99 99 Specialty Diagnoses / Procedures Referred By Trina griffiths Referred To Contact Neurology Diagnoses 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) Procedures CONSULT TO NEUROLOGY OFFICE/OUTPATIENT [facility] 60-74 MINUTES Chiquis Haider MD [address] [place] [address] La Newberry MD [address] [place] [address] Referral ID Status Reason Start Date Expiration Date Visits Requested Visits Authorized [id number] Authorized PCP Requested Referral 01/25/2023 01/25/2024 1 1 Specialty Diagnoses / Procedures Referred By Contac t Referred To Contact [facility] Diagnoses Arterial ischemic stroke, MCA (middle cerebral artery), left, acute (HCC) Procedures EPIL EEG ROUTINE ELECTROENCEPHALOGRAM REC COMA/[place] [address] [place] [address] [place] [address] Referral ID Status Reason Start Date Expiration Date Visits Requested Visits Authorized [id number] Authorized Auto-Generat ed Referral 01/25/2023 01/26/2024 1 1 Specialty Diagnoses / Procedures Referred By Contac t Referred To Contact [facility] Diagnoses 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) Procedures OT REHAB FOLLOW UP ORDER THERAPEUT ACTVITY DIRECT PT CONTACT EACH 15 MIN [address] [place] [address] [facility] [place] [address] Referral ID Status Reason Start Date Expiration Date Visits Requested Visits Authorized [id number] Pending Review PCP Requested Referral Auto-Generate d [...] or prosecute any alcohol or drug abuse patient.[facility] HospitalIn the event this information is protected by the Federal Confidentiality of Alcohol and Drug Abuse Patient Records regulations: The Federal rules restrict any use of the information to criminally investigate or prosecute any alcohol or drug abuse patient.[facility] HospitalIn the event this information is protected by the Federal Confidentiality of Alcohol and Drug Abuse Patient Records regulations: The Federal rules restrict any use of the information to criminally investigate or prosecute any alcohol or drug abuse patient.[facility] HospitalIn the event this information is protected by the Federal Confidentiality of Alcohol and Drug Abuse Patient Records regulations: The Federal rules restrict any use of the information to criminally investigate or prosecute any alcohol or drug abuse patient.[facility] HospitalIn the event this information is protected by the Federal Confidentiality of Alcohol and Drug Abuse Patient Records regulations: The Federal rules restrict any use of the information to criminally investigate or prosecute any alcohol or drug abuse patient.[facility] HospitalIn the event this information is protected by the Federal Confidentiality of Alcohol and Drug Abuse Patient Records regulations: The Federal rules restrict any use of the information to criminally investigate or prosecute any alcohol or drug abuse patient.[facility] Care Teams (unrecognized sec tion and content) Director [employer] Relationship Specialty Start Date End Date Alonso Obando MD [address] [place], [place] [address] PCP - General Family Practice 10/15/10 Team [...] MD Admit Provider, Attending Prov ider Active Director [employer] Relationship Specialty Start Date End Date Alonso Obando MD [address] [place] [address] PCP - General Family Medicine 10/15/10 Director [employer] Relationship Specialty Start Date End Date Alonso Obando MD [address] [place], [place] [address] PCP - General Family Medicine 10/15/10 Director [employer] Relationship Specialty Start Date End Date Alonso Obando MD [address] [place], [place] [address] PCP - General Family Medicine 10/15/10 Team [...] Dr. Kenny Farr MD Other Provider Active Director [employer] Relationship Specialty Start Date End Date Alonso Obando MD [address] [place], [place] [address] PCP - General Family Medicine 10/15/10 Director [employer] Relationship Specialty Start Date End Date Alonso Obando MD [address] [place], [place] [address] PCP - General Family Medicine 10/15/10 Team [...] anterior cerebral artery (HCC) Procedures CONSULT TO DIVE SUPERINTENDENT OCCUPATIONAL THERAPY [place] [facility] COMPLEX 60 MINS Chiquis Haider MD [address] [place] [address] [facility] [address] [address] Referral ID Status Reason Start Date Expiration Date Visits Requested Visits Authorized [id number] Authorized PCP Requested Referral Auto-Generate d Referral 01/25/2023 11/05/2023 99 99 Reason Comments OT EVAL OT Discharge Specialty Diagnoses / Procedures Referred By Contac t Referred To Contact [facility] Diagnoses 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 INFORMATION SOURCE (unrecogn ized section and content) DATE CREATED AUTHOR 07/08/2023 [facility] DATE CREATED AUTHOR AUTHOR'S ORGANIZ ATION 08/16/2023 [facility] DATE CREATED AUTHOR AUTHOR'S ORGANIZ ATION 10/19/2024 [facility] FOR RECORDS PERTAINING TO PATIENTS WHO [...] BE BASED ON THE PRIMARY CLINICAL RECORDS. [facility] [employer] [facility]. provides no warranty or guarantee of the accuracy or completeness of information in this document.
[2025-10-16 23:57] LABS: Troponin T High Sens 4 HR 50 ng/L (<=14)
[2025-10-17] VITALS (7 sets, daily range): BP systolic 123–158; BP diastolic 82–95; PULSE 52–88; RESP 16–18; TEMP 36.4–37; O2SAT 95–98; BMI 14.8; BMI 16.7
[2025-10-17 00:15] LABS: Ammonia 23.3 umol/L (11-51)
[2025-10-17 00:28] LABS: Procalcitonin 0.02 ng/mL (<=0.10)
[2025-10-17] MEDS: 0.9% Normal Saline (1000mL) 1,000 ML 100 ML IV (00:49)
[2025-10-17 05:38] LABS: Hematocrit 41.9 % (37-47); Hemoglobin 14.1 g/dL (12.0-15.0); Immature Granulocytes Count 0.030 X10^3/uL (0.0-0.0); Mean Corp Hgb Conc 33.7 g/dL (32-36); Mean Corpuscular Volume 93.7 fL (81-99); Mean Platelet Vol. 9.2 fl (6.2-12.0); NRBC Flagged by Analyzer 0 % (0-5); Platelet Count 253 K/mm3 (150-450); RBC Distribution Width CV 13.5 % (11.6-14.6); RBC Distribution Width SD 46.4 fl (35.1-43.9); Red Blood Count 4.47 M/mm3 (4.2-5.4); White Blood Count 7.8 K/mm3 (4.4-11.0)
[2025-10-17 06:31] LABS: AST(SGOT) 20 U/L (<=31); Alanine Aminotransfer ALT/SGPT 10 U/L (<=34); Albumin, Serum 3.8 g/dL (3.4-4.8); Alkaline Phosphatase 94 U/L (35-104); Anion Gap 12 (5-15); BUN 14 mg/dL (4-19); BUN/Creat Ratio 21.0 RATIO (10-20); Calcium,Total 9.5 mg/dL (7.6-11.0); Carbon Dioxide 23.2 mmol/L (21.0-32.0); Chloride 103 mmol/L (98-108); Cholesterol 195 mg/dL (<=200); Estimated Creatinine Clearance 35.38 ml/min (50-250); Globulin 2.5 g/dL (2.2-4.2); Glucose 81 mg/dL (70-99); Low Density Lipoprotein Calc. 111 mg/dL; Potassium 3.7 mmol/L (3.3-5.1); Triglycerides 111 mg/dL; Very Low Density Lipoprotein 22 mg/dL (5-40); cholesterol:hdl ratio screen 3.05
--- NOTE | 2025-10-17 08:19 | PN.HOSP_ITS ---
Reason for Visit Chief Complaint: Transient confusion, aphasia. Subjective Subjective Had acute confusion yesterday. Typically, lives by herself (though does not drive) and is functional. Objective Data Objective Data Vital Signs: Vital Signs Temp Pulse Resp BP Pulse Ox O2 Del Method 36.7 C 88 18 155/82 H 98 Room Air 10/17/25 04:00 10/17/25 04:00 10/17/25 04:00 10/17/25 04:00 10/17/25 04:00 10/17/25 04:00 Oxygen Delivery Method Room Air Weight: 39.3 kg Body Mass Index (BMI) 14.8 Intake & Output: Intake and Output for Last 24 Hours 10/15/25 10/16/25 10/17/25 23:59 23:59 23:59 Output Total 0 / 0 Balance 0 / 0 Lab / Micro Data 10/17/25 05:20 10/17/25 05:20 Labs: Laboratory Results - last 24 hr 10/16/25 18:35: WBC 8.7, RBC 4.94, Hgb 15.4 H, Hct 47.3 H, MCV 95.7, MCH 31.2, MCHC 32.6, RDW Std Deviation 48.4 H, RDW Coeff of [place] 13.7, Plt Count 276, MPV 9.2, Immature Gran % (Auto) 0.300, Neut % (Auto) 72.6 H, Lymph % (Auto) 17.3 L, Morton % (Auto) 8.0, Eos % (Auto) 1.0, Baso % (Auto) 0.8, Absolute Neuts (auto) 6.3, Absolute Lymphs (auto) 1.51, Nucleated RBC % 0, PT 12.5, INR 0.9, APTT 22.2 L, Sodium 141, Potassium 3.8, Chloride 100, Carbon Dioxide 27.2, Anion Gap 14, BUN 17, Creatinine 0.90, Estim Creat Clear Calc 30.49 L, Est GFR (MDRD) Non-Af 65, BUN/Creatinine Ratio 18.8, Glucose 130 H, Calcium 10.8, Troponin T High Sens 57 H* 10/16/25 21:00: Magnesium 1.6, Troponin T Hi Sens 2 Hr 53 H 10/16/25 21:37: Urine Color Yellow, Urine Clarity Clear, Urine pH 6.0, Ur Specific [place] 1.010, Urine Protein 30 H, Urine Glucose (UA) Normal, Urine Ketones 5 H, Urine Occult Blood 25 H, Urine Nitrite Negative, Urine Bilirubin Negative, Urine Urobilinogen Normal, Ur Leukocyte Esterase Negative, Urine RBC 0 SEEN, Urine WBC 0 SEEN, Ur Squamous Epith Cells 0 SEEN, Urine Bacteria 0 SEEN, Urine Mucus 0 SEEN 10/16/25 23:10: Ammonia 23.3, Troponin T Hi Sens 4Hr 50 H, Procalcitonin 0.02 10/17/25 05:20: WBC 7.8, RBC 4.47, Hgb 14.1, Hct 41.9, MCV 93.7, MCH 31.5, MCHC 33.7, RDW Std Deviation 46.4 H, RDW Coeff of [place] 13.5, Plt Count 253, MPV 9.2, Immature Gran % (Auto) 0.400, Neut % (Auto) 60.0, Lymph % (Auto) 28.1, Morton % (Auto) 9.7, Eos % (Auto) 1.0, Baso % (Auto) 0.8, Absolute Neuts (auto) 4.7, Absolute Lymphs (auto) 2.18, Nucleated RBC % 0, Sodium 138, Potassium 3.7, Chloride 103, Carbon Dioxide 23.2, Anion Gap 12, BUN 14, Creatinine 0.67 L, E stim Creat Clear Calc 35.38 L, Est GFR (MDRD) Non-Af 89, BUN/Creatinine Ratio 21.0 H, Glucose 81, Calcium 9.5, Total Bilirubin 0.38, AST 20, ALT 10, Alkaline Phosphatase 94, Total Protein 6.3, Albumin 3.8, Globulin 2.5, Albumin/Globulin Ratio 1.6, Triglycerides 111, Cholesterol 195, LDL Cholesterol, Calc 111, VLDL Cholesterol 22, HDL Cholesterol 64, Cholesterol/HDL Ratio 3.05 Micro: Microbiology 10/17/25 01:00 Mucosa - Nasopharyngeal Respiratory Panel (PCR) - Final Radiography Diagnostic Testing: Radiology Impression Chest X-Ray 10/16/25 00:20 IMPRESSION: No evidence for acute abnormality. Reading Location: [place] [id number] 10/16/25 18:33 IMPRESSION: Moderate global cerebral atrophy with severe chronic microvascular ischemic changes. No CT evidence of acute hemorrhage or acute infarction. Patent intracranial and extracranial carotid and vertebral arteries without hemodynamically significant stenosis. No acute intracranial abnormality detected. Critical results were communicated to Quiana at 6:55 p.m.. Reading Location: [facility] Head/Neck CTA 10/16/25 18:35 IMPRESSION: Moderate global cerebral atrophy with severe chronic microvascular ischemic changes. No CT evidence of acute hemorrhage or acute infarction. Patent intracranial and extracranial carotid and vertebral arteries without hemodynamically significant stenosis. No acute intracranial abnormality detected. Critical results were communicated to Quiana at 6:55 p.m.. Reading Location: [facility] Physical Exam Const alert and no apparent distress HEENT head/scalp atraumatic and moist oral mucous membranes Resp normal respiratory effort, no retractions, no use of accessory muscles and clear to auscultation bilaterally Cardio regular rate, regular rhythm, S1 normal heart sound and S2 normal heart sound GI normal to inspection, nondistended, normoactive bowel sounds, soft to palpation, non-tender and non-distended Neuro oriented x3, CN's II-XII intact bilaterally, moves all extremities and no focal motor deficits Sensorium / Orientation: awake, alert, oriented to person and oriented to place; Negative for oriented to time Speech: speech normal Psych affect normal Assessment & Plan Assessment/Plan (1) Aphasia: PLAN: Plan CVA: * neurology saw small CVA on MRI. Recommend starting fenofibrate (already on statin), clopidogrel load then daily clopidogrel and ASA. 30-day event monitor. Elevated troponin * likely demand ischemia from CVA * follow up echo. DVT prophylaxis: Lovenox. DW patient's son at bedside. Charges/Coding Visit Charges Inpatient E&M: 62340 Subs Hosp L2 NIHSS NIHSS Nursing Documentation NIHSS Nursing Documentation: NIHSS: Ischemic Stroke/TIA Start: 10/16/25 23:55 Text: For PCU Patients: NIH and Neuro Check every 4 Status: Active hours, PRN and with change in RN caregiver. Freq: [id number] Protocol: Activity Type Activity Date Activity User E-sign Co-sign Detail Recorded Client Recorded Date Recorded By Document 10/17/25 04:00 MB [id number] 10/17/25 04:13 10/17/25 04:00 NIH Stroke Scale [NIHSS] A score of 0 is normal or asymptomatic . Total possible score is 42. Inpatient: RN or Physician to activate a stroke alert for onset of new stroke symptoms or with NIHSS increase >/= 3 points. Following change in neurological status, NIHSS will be performed per physician order or more frequently PRN. -1a. Level of Consciousness 0 - Alert; keenly responsive -1b. LOC Questions 2 - Answers NEITHER question correctly -1c. LOC Commands 0 - Performs BOTH tasks correctly -2. Best Gaze 0 - Normal -4. Facial Palsy 0 - Normal symmetrical movements -5a. Left Arm 0 - No drift; arm holds 90 ( or 45) degrees for full 10 seconds -5b. Right Arm 0 - No drift; arm holds 90 ( or 45) degrees for full 10 seconds -6a. Left Leg 0 - No drift; leg holds 30- degree position for full 5 seconds -6b. Right Leg 0 - No drift; leg holds 30- degree position for full 5 seconds -7. Limb Ataxia 0 - Absent -8. Sensory 0 - Normal; no sensory loss -9. Best Language 1 - Mild-to- moderate aphasia; -10. Dysarthria 0 - Normal -11. Extinction and Inattention 0 - No abnormality -Total 3 Query Text:A score of 0 is normal or asymptomatic. Total possible score is 42 . ED: Notify Physician for NIHSS increase by > / = 3 points. Inpatient: RN or Physician to activate a stroke alert for NIHSS increase of > / = 3 points. Coma Scale [Assess] -Eye Opening Spontaneous -Motor Localizes to Pain -Verbal Confused [Total] -Coma Scale Total 13
[2025-10-17] MEDS: Aspirin E.C. 81 MG Tablet PO (08:48)
--- NOTE | 2025-10-17 09:30 | MRI_ITS ---
PROCEDURE: MRI BRAIN WITHOUT CONTRAST 10/17/2025 REASON FOR EXAM: TRANSIENT CONFUSION, APHASIA TECHNIQUE: Procedure Code: MRIBR Modality: MR Procedure: BRAIN WITHOUT CONTRAST Multiplanar and multisequential MRI of the brain was performed without contrast. COMPARISON: CT head/angiography 10/16/2025. MRI 01/14/2023. FINDINGS: There are a few small foci of mild diffusion restriction involving the right parietal lobe peritrigonal periventricular white matter compatible with acute-subacute infarcts. No large territorial acute infarct. No evidence of acute intracranial hemorrhage, extra-axial collection, mass-effect or midline shift. Advanced generalized brain parenchymal volume loss with associated ex vacuo ventricular enlargement, and chronic small-vessel ischemic-gliotic changes throughout the supratentorial white matter and within the central rossi. Multiple scattered chronic lacunar infarcts in the bilateral carnes radiata white matter, bilateral basal ganglia, and a few tiny foci involving the cerebellum. Grossly preserved major vascular flow voids. Absent [place] ocular lenses. Well-aerated paranasal sinuses and bilateral mastoid air cells. MRI/Brain without Contrast IMPRESSION: Few small foci of acute-subacute infarct involving the right parietal lobe chas trigonal periventricular white matter. Background of advanced chronic microangiopathic changes with numerous scattered [place] r infarcts in the carnes radiata white matter and bilateral basal ganglia. Reading Location: [id number]
--- NOTE | 2025-10-17 11:57 | NEURO.CONS ---
Assessment and Plan: Neuro Assessment/Plan FREDDY WHITTINGTON is a 79 F with a past medical history of HTN, HLD, CKD, dementia being evaluated by Teleneurology for confusion, AMS. Stroke of unclear etiology - cryptogenic. Has HTN, HLD, and tobacco use as risk factors Plan: ?The following tests for stroke work-up have been/should be obtained:? ? Neuroimaging: MRI Brain with scattered R parietal stroke ? Vascular imaging: no acute abnormalities ? Cardiac testing: EF 70%, no valvular abnormalities ? Cardiac monitorin day electronic device monitor on discharge ? Labs: HgbA1c pending, LDL 111 ?Permissive hypertension to goal SBP < 160/80mm Hg ?Anti-platelet medication: Plavix 300mg once, then Plavix 75mg + Aspirin 81mg daily for 3 weeks, then ASA 81mg daily ?Statin therapy: continue home lipitor, start zetia ?Occupational/Physical therapy consults ?NPO until swallow evaluation.? IVF until able to take po ?DVT prophylaxis with SCDs and heparin SQ. ?Vascular risk factor modification.? The following are the recommended guidelines: LDL Goal < 70 Smoking Cessation Diabetes management termite treater Blood pressure control should achieve <130/80 mmHg.? BP management should aim to achieve termite treater control in a reasonable amount of time, taking into consideration the individual patient's requirements and characteristics. Weight Management: Goal for BMI is 18.5-24.9 kg/m2. Alcohol: No more than 2 drinks/day for men or 1 drink/day for non- women. Promote lifestyle modification: weight control, physical activity, moderation of alcohol intake, moderate sodium intake. I personally attended this patient and spent a total time of 45minutes evaluating this patient including clinical assessment, review of chart, medical history imaging, and determining appropriate treatment and workup. HPI Consult Data Date of Consult: 10/18/25 HPI Narrative HPI Narrative: The patient is a 79 y/o F w/ PMHx: Hx TIA/CVA, Dementia unclear extent/unclear type with unclear behavioral disturbance history, Macular degeneration, HTN, HLD, Anxiety and Depression, Tobacco use, CKD stage II per GFR trending who presents to the [facility] ED on 10/16/2025 with history of last known well at approximately 1530 on day of presentation following which at approximately 1730 her granddaughter went to pick her up noted that she was confused and had difficulty finding words with previous history of TIA prompting family bring patient in for evaluation. Neurologist with telestroke evaluation reported that patient at baseline is able to hold conversations, follow multiple step commands and keep her home however she has been struggling with short-term memory often forgetting conversations within a 2-hour time span with reported evaluation outpatient with neurology 07/2023 for transient episodes of slurred speech and confusion with multiple MRIs and evaluation with significant white matter disease and mild cognitive impairment with recommendation at that time for neuropsych testing but it is unclear if that was obtained. NIH stroke scale assessment per neurologist noted to be 1 for incorrect question stating that she is 26. In the ED patient ministered lisinopril 10 mg p.o. x 1. Neurologic History Patient was being picked up to go grocery shopping and her speech was a little off. Her speech had been off for about 30 min. Started sometime between 3-5pm. Her speaking is not back to normal - she is still really confused. Pt is RH. Son was there shortly after it started, and she was just saying she is cold but no slurred speech. This is different than her normal speech fluctuations. Patient lives by herself. Pt has a history dmeentia and word finding issues but this episode is different in that it is lasting longer and more staring into space and her behavior is a little off. Has been having symptoms from dementia for 2 yrs. She had been able to live alone and deal with her own meds, doing her own food and cook as well. Takes ASA for a remote history of stroke 10-15 yrs ago but unclear how the stroke was found. Her neighbor took her to hospital and seemed to have memory loss afterward. Continues to be on statin and BP runs high at home. Has been on mirtazapine for a year. No recent changes in medications. Exam -? General: Laying comfortably in bed; in no acute distress. -? HENT: Normal oropharynx and mucosa. Normal external appearance of ears and nose. Exophthalmos. -? Neck: Supple, no pain or tenderness -? CV:? No peripheral edema. -? Pulmonary:? Normal respiratory effort. -? Ext: No cyanosis, edema, or deformity -? Skin: No rash. Normal palpation of skin.? -? Musculoskeletal: full range of motion; no joint tenderness. Normal digits and nails by inspection. No clubbing. -? NEURO: -? Mental Status: The patient was alert and oriented to time, place, and person. Normal recent/remote memory, concentration, and general fund of knowledge. -? Language: speech is clear, there is paucity of speech.? Naming, repetition, fluency, and comprehension intact. -? Cranial Nerves: PERRL 4mm/brisk. EOMI, L lower quadrant diminished vision, no facial asymmetry, facial sensation intact, hearing intact, tongue midline, no evidence of atrophy or fibrillations. -? Motor: normal bulk, tone, and strength throughout. No pronator drift or satelliting. Upper antigravity b/l, LLE with drift -? Detailed strength exam as performed by the nurse/CYNTHIA and witnessed by the physician: R L SA 5 5 EE EF WE WF Insect Control Aide 5 5 HF KE KF DF PF -? Tone: is normal and bulk is normal -? Sensation- Intact to light touch bilaterally, extinction on the L -? Coordination: No dysmetria on [id number], finger follow finger or [id number]. -? Gait- deferred. [facility] Medical History Tobacco use CKD (chronic kidney disease), stage II Anxiety and depression HLD (hyperlipidemia) Smoker HTN (hypertension) TIA (transient ischemic attack) Macular degeneration Home Medications ?Medication ?Instructions ?Recorded ?Last Taken ?Type lisinopril 10 mg tablet 10 mg PO DAILY #30 tabs 02/25/19 07/20/22 Rx aspirin 81 mg tablet,delayed 81 mg PO DAILY heart health 09/14/22 09/13/22 History release alendronate 35 mg tablet 35 mg PO DAILY 03/11/23 Unknown History atorvastatin 80 mg tablet 80 mg PO QHS 03/11/23 Unknown History mirtazapine 30 mg tablet 30 mg PO QHS 03/11/23 Unknown History calcium carbonate (Calcium 500) 500 mg PO DAILY 10/25/23 Unknown History clopidogrel 75 mg tablet 75 mg PO DAILY #30 tabs 10/17/25 Unknown Rx fenofibrate nanocrystallized 145 145 mg PO DAILY #30 tabs 10/17/25 Unknown Rx mg tablet food supplemt, lactose-reduced 120 ml PO 4X/DAY #120 mL 10/17/25 Unknown Rx 0.08 gram-1.5 kcal/mL oral liquid (Ensure Plus High Protein) Allergy/AdvReac Type Severity Reaction Status Date / Time No Known Allergies Allergy Verified 10/16/25 18:53 Family History Mother Diabetes Father CVA (cerebral vascular accident) Surgical History History of cataract surgery Social History (Updated 10/16/25 @ 23:[address] Maryam Sneed MD) household members: other details: Lives alone Smoking Status: Current every day smoker tobacco type: cigarettes Tobacco: How many years used: 20 alcohol intake: never substance use type: does not use Vital Signs Vital Signs Vital Signs: 10/16/25 18:23 10/16/25 18:33 10/16/25 18:43 Temperature 98 F 97.6 F L Temperature Source Temporal Oral Pulse Rate 85 Respiratory Rate 13 Respiratory Effort Respiratory Depth Respiratory Pattern Blood Pressure 180/123 H Blood Pressure Mean 142 Blood Pressure Source Blood Pressure Position Blood Pressure Location Pulse Ox 99 Oxygen Delivery Method Room Air Room Air 10/16/25 19:22 10/16/25 20:00 10/16/25 21:00 Temperature 97.8 F Temperature Source Oral Pulse Rate 86 73 74 Respiratory Rate 22 H 20 H 24 H Respiratory Effort Respiratory Depth Respiratory Pattern Blood Pressure 172/129 H 155/112 H 163/95 H Blood Pressure Mean 143 126 117 Blood Pressure Source Blood Pressure Position Blood Pressure Location Pulse Ox 96 96 96 Oxygen Delivery Method Room Air Room Air Room Air 10/16/25 22:00 10/16/25 23:05 10/17/25 00:00 Temperature 98.7 F 98.1 F Temperature Source Temporal Pulse Rate 73 74 73 Respiratory Rate 23 H 17 18 Respiratory Effort Respiratory Depth Respiratory Pattern Blood Pressure 141/89 H 147/86 H 158/89 H Blood Pressure Mean 106 106 112 Blood Pressure Source Monitor Blood Pressure Position Semi-Fowlers Blood Pressure Location Left Arm Pulse Ox 96 97 95 Oxygen Delivery Method Room Air Room Air 10/17/25 01:00 10/17/25 01:39 10/17/25 04:00 Temperature 98.0 F Temperature Source Temporal Pulse Rate 88 Respiratory Rate 18 Respiratory Effort Normal Respiratory Depth Normal Respiratory Pattern Normal Blood Pressure 155/82 H Blood Pressure Mean 106 Blood Pressure Source Monitor Blood Pressure Position Semi-Fowlers Blood Pressure Location Right Arm Pulse Ox 96 98 Oxygen Delivery Method Room Air Room Air Room Air 10/17/25 07:02 10/17/25 08:00 10/17/25 10:46 Temperature 98.1 F 97.6 F L Temperature Source Oral Oral Pulse Rate 67 74 Respiratory Rate 16 16 Respiratory Effort Respiratory Depth Respiratory Pattern Blood Pressure 147/95 H 148/91 H Blood Pressure Mean 112 110 Blood Pressure Source Monitor Monitor Blood Pressure Position Semi-Fowlers Semi-Fowlers Blood Pressure Location Left Arm Left Arm Pulse Ox 95 95 95 Oxygen Delivery Method Room Air Room Air Room Air Weight Weight: 44.055 kg Body Mass Index (BMI) 16.7 EEG Results Procedure Details EEG Procedure Details: FREDDY WHITTINGTON is a 79 year old F with a past medical history of , who presents for evaluation of Electroencephalogram on DATE at TIME Lab / Micro Data 10/17/25 05:20 10/17/25 05:20 Labs: Laboratory Results - last 24 hr 10/16/25 18:35: WBC 8.7, RBC 4.94, Hgb 15.4 H, Hct 47.3 H, MCV 95.7, MCH 31.2, MCHC 32.6, RDW Std Deviation 48.4 H, RDW Coeff of [place] 13.7, Plt Count 276, MPV 9.2, Immature Gran % (Auto) 0.300, Neut % (Auto) 72.6 H, Lymph % (Auto) 17.3 L, Cecil % (Auto) 8.0, Eos % (Auto) 1.0, Baso % (Auto) 0.8, Absolute Neuts (auto) 6.3, Absolute Lymphs (auto) 1.51, Nucleated RBC % 0, PT 12.5, INR 0.9, APTT 22.2 L, Sodium 141, Potassium 3.8, Chloride 100, Carbon Dioxide 27.2, Anion Gap 14, BUN 17, Creatinine 0.90, Estim Creat Clear Calc 30.49 L, Est GFR (MDRD) Non-Af 65, BUN/Creatinine Ratio 18.8, Glucose 130 H, Calcium 10.8, Troponin T High Sens 57 H* 10/16/25 21:00: Magnesium 1.6, Troponin T Hi Sens 2 Hr 53 H 10/16/25 21:37: Urine Color Yellow, Urine Clarity Clear, Urine pH 6.0, Ur Specific [place] 1.010, Urine Protein 30 H, Urine Glucose (UA) Normal, Urine Ketones 5 H, Urine Occult Blood 25 H, Urine Nitrite Negative, Urine Bilirubin Negative, Urine Urobilinogen Normal, Ur Leukocyte Esterase Negative, Urine RBC 0 SEEN, Urine WBC 0 SEEN, Ur Squamous Epith Cells 0 SEEN, Urine Bacteria 0 SEEN, Urine Mucus 0 SEEN 10/16/25 23:10: Ammonia 23.3, Troponin T Hi Sens 4Hr 50 H, Procalcitonin 0.02 10/17/25 05:20: WBC 7.8, RBC 4.47, Hgb 14.1, Hct 41.9, MCV 93.7, MCH 31.5, MCHC 33.7, RDW Std Deviation 46.4 H, RDW Coeff of [place] 13.5, Plt Count 253, MPV 9.2, Immature Gran % (Auto) 0.400, Neut % (Auto) 60.0, Lymph % (Auto) 28.1, Cecil % (Auto) 9.7, Eos % (Auto) 1.0, Baso % (Auto) 0.8, Absolute Neuts (auto) 4.7, Absolute Lymphs (auto) 2.18, Nucleated RBC % 0, Sodium 138, Potassium 3.7, Chloride 103, Carbon Dioxide 23.2, Anion Gap 12, BUN 14, Creatinine 0.67 L, Estim Creat Clear Calc 35.38 L, Est GFR (MDRD) Non-Af 89, BUN/Creatinine Ratio 21.0 H, Glucose 81, Calcium 9.5, Total Bilirubin 0.38, AST 20, ALT 10, Alkaline Phosphatase 94, Total Protein 6.3, Albumin 3.8, Globulin 2.5, Albumin/Globulin Ratio 1.6, Triglycerides 111, Cholesterol 195, LDL Cholesterol, Calc 111, VLDL Cholesterol 22, HDL Cholesterol 64, Cholesterol/HDL Ratio 3.05 Micro: Microbiology 10/17/25 01:00 Mucosa - Nasopharyngeal Respiratory Panel (PCR) - Final Imaging Radiology Impression Chest X-Ray 10/16/25 00:20 IMPRESSION: No evidence for acute abnormality. Reading Location: [place] [id number] 10/16/25 18:33 IMPRESSION: Moderate global cerebral atrophy with severe chronic microvascular ischemic changes. No CT evidence of acute hemorrhage or acute infarction. Patent intracranial and extracranial carotid and vertebral arteries without hemodynamically significant stenosis. No acute intracranial abnormality detected. Critical results were communicated to Quiana at 6:55 p.m.. Reading Location: [facility] Head/Neck CTA 10/16/25 18:35 IMPRESSION: Moderate global cerebral atrophy with severe chronic microvascular ischemic changes. No CT evidence of acute hemorrhage or acute infarction. Patent intracranial and extracranial carotid and vertebral arteries without hemodynamically significant stenosis. No acute intracranial abnormality detected. Critical results were communicated to Quiana at 6:55 p.m.. Reading Location: [facility] Active Medications Active Medications Active Medications: Current Medications Generic Name Dose Route Start Last Admin Trade Name Freq PRN Reason Stop Dose Admin Acetaminophen 650 mg 10/16/25 23:55 Acetaminophen 325 Mg Tablet PO Q4H PRN PRN Fever, pain 1-10 Al Hydroxide/Mg Hydroxide 30 ml 10/16/25 23:55 Mag Hydrox/Al Hydrox/Simeth 30 Ml Udc PO Q6H PRN PRN Gastric Burning Albuterol Sulfate 2.5 mg 10/16/25 23:55 Albuterol 2.5 Mg/3 Ml Vial.Neb. INHALATION Q2H PRN PRN Dyspnea, wheezing Aspirin 81 mg 10/17/25 08:00 10/17/25 08:48 Aspirin E.C. 81 Mg Tablet PO 81 mg BREAKFAST BRITTANY Administration Atorvastatin Calcium 80 mg 10/17/25 22:00 Atorvastatin Calcium 80 Mg Tablet PO QHS BRITTANY Enoxaparin Sodium 40 mg 10/17/25 10:00 10/17/25 08:49 Enoxaparin 40 Mg/0.4 Ml Syringe SC 40 mg DAILY BRITTANY Administration Guaifenesin 20 ml 10/16/25 23:55 Guaifenesin 10 Ml Udc (200mg/10ml) PO Q4H PRN PRN COUGH Hydralazine HCl 5 mg 10/16/25 23:55 Hydralazine 20 Mg/Ml Vial IV 10/17/25 23:55 Q30M PRN maintain BP parameters with HR <60 Sodium Chloride 250 mls @ 15 mls/hr 10/17/25 00:17 IV .[id number] PRN Saline Flush Sodium Chloride 250 mls @ 15 mls/hr 10/17/25 00:17 IV .[id number] PRN Additional IVPB Infusion Labetalol HCl 10 - 20 mg 10/16/25 23:55 Labetalol 20 Mg/4 Ml Vial IV 10/17/25 23:55 Q10M PRN PRN maintain BP parameters with HR >/=60 Melatonin 3 mg 10/16/25 23:55 Melatonin 3 Mg Tablet PO QHS PRN PRN INSOMNIA Mirtazapine 30 mg 10/17/25 22:00 Mirtazapine 30 Mg Tablet PO QHS BRITTANY Ondansetron HCl 4 mg 10/16/25 23:55 Ondansetron 4 Mg/2 Ml Vial IV Q8H PRN PRN NAUSEA/VOMITING Senna/Docusate Sodium 2 tablet 10/16/25 23:55 Senna/Docusate Sodium 1 Tablet PO BID PRN PRN Constipation Sodium Chloride 10 - 40 ml 10/17/25 00:17 0.9% Saline Lock 10 Ml Syringe IV UD PRN SALINE FLUSH NIHSS NIHSS Nursing Documentation NIHSS Nursing Documentation: NIHSS: Ischemic Stroke/TIA Start: 10/16/25 23:55 Text: For PCU Patients: NIH and Neuro Check every 4 Status: Active hours, PRN and with change in RN caregiver. Freq: [id number] Protocol: Activity Type Activity Date Activity User E-sign Co-sign Detail Recorded Client Recorded Date Recorded By Document 10/17/25 10:44 [id number] 10/17/25 10:46 SS 10/17/25 10:44 NIH Stroke Scale [NIHSS] A score of 0 is normal or asymptomatic . Total possible score is 42. Inpatient: RN or Physician to activate a stroke alert for onset of new stroke symptoms or with NIHSS increase >/= 3 points. Following change in neurological status, NIHSS will be performed per physician order or more frequently PRN. -1a. Level of Consciousness 0 - Alert; keenly responsive -1b. LOC Questions 1 - Answers ONE question correctly -1c. LOC Commands 0 - Performs BOTH tasks correctly -2. Best Gaze 0 - Normal -3. Visual 0 - No visual loss -4. Facial Palsy 0 - Normal symmetrical movements -5a. Left Arm 0 - No drift; arm holds 90 ( or 45) degrees for full 10 seconds -5b. Right Arm 0 - No drift; arm holds 90 ( or 45) degrees for full 10 seconds -6a. Left Leg 0 - No drift; leg holds 30- degree position for full 5 seconds -6b. Right Leg 0 - No drift; leg holds 30- degree position for full 5 seconds -7. Limb Ataxia 0 - Absent -8. Sensory 0 - Normal; no sensory loss -9. Best Language 1 - Mild-to- moderate aphasia; -10. Dysarthria 0 - Normal -11. Extinction and Inattention 0 - No abnormality -Total 2 Query Text:A score of 0 is normal or asymptomatic. Total possible score is 42 . ED: Notify Physician for NIHSS increase by > / = 3 points. Inpatient: RN or Physician to activate a stroke alert for NIHSS increase of > / = 3 points. Coma Scale [Assess] -Eye Opening Spontaneous -Motor Obeys Commands -Verbal Confused [Total] -Coma Scale Total 14 NIHSS 1a. Level of Consciousness: 0 - Alert; keenly responsive 1b. LOC Questions: 0 - Answers BOTH questions correctly 1c. LOC Commands: 0 - Performs BOTH tasks correctly 2. Best Gaze: 0 - Normal 3. Visual: 1 - Partial hemianopia 4. Facial Palsy: 0 - Normal symmetrical movements 5a. Left Arm: 0 - No drift; arm holds 90 (or 45) degrees for full 10 seconds 5b. Right Arm: 0 - No drift; arm holds 90 (or 45) degrees for full 10 seconds 6a. Left Le - No drift; leg holds 30-degree position for full 5 seconds 6b. Right Le - No drift; leg holds 30-degree position for full 5 seconds 7. Limb Ataxia: 0 - Absent 8. Sensory: 0 - Normal; no sensory loss 9. Best Language: 0 - No aphasia; normal 10. Dysarthria: 0 - Normal 11. Extinction and Inattention: 1 - Visual, tactile, auditory, spatial, or personal inattention; Total: 2
--- NOTE | 2025-10-17 12:28 | CASEMGMT ---
Social Work SW spoke with the son Jimmy and the patient. SW spoke with them about options at [place]. SW explained his mother will need / supervision. Jimmy reported the confusion has been happening for about 2 years. SW spoke with them about [facility], private caregivers, Medicaid and staying with family. The son reported the patient will be over assets for Medicaid. The son reported he will talk with his sister and they will make a decision. SW suggested they check into the different [facility]. The son reported he might consider [facility]. SW explained SW would follow back up regarding their decision. CLAUDE Kimball
--- NOTE | 2025-10-17 13:27 | CASEMGMT ---
Social Work YANA spoke with the son Jimmy and DIL Imani. The son and DIL requested SW send a PENITENTIARY referral to [facility]. YANA explained the patient maybe be medically ready to DC today. YANA spoke with Toma at [facility] on the phone with the son and KATHIE present. Toma stated she will review the referral and would send someone to assess the patient at the hospital. CLAUDE Kimball
--- NOTE | 2025-10-17 14:38 | CASEMGMT ---
Social Work [facility] reported in [facility] that they can accept the patient today. The son Jimmy said the family can transport. The physician has been notified of the DC plan. CLAUDE Kimball
--- NOTE | 2025-10-17 14:56 | DS.PCM_ITS ---
Providers Date of Admission: 10/16/25 Primary Care Physician: Dr. Amisha Torrez MD Consultations 10/16/25 23:55 Consult: Tele-Neurology Routine Consulting Provider: [facility] Reason for Consult: Transient confusion, aphasia EMERGENT Consult: No MD Notified: Yes Date Notified: 10/17/25 Time Notified: 01:57 Method of Notification: Answering Service Nursing Unit Staff Notify [facility] of Tele-Neurology Consult: Yes Reason For Visit: TRANSIENT CONFUSION, APHASIA Diagnosis Discharge Diagnosis (1) Aphasia: Status: Acute Code(s): R47.01 - Aphasia (2) CVA (cerebral vascular accident): Status: Ruled-out Code(s): I63.9 - Cerebral infarction, unspecified Plan CVA: * neurology saw small CVA on MRI. Recommend starting fenofibrate (already on statin), clopidogrel load then daily clopidogrel and ASA. 30-day event monitor. Elevated troponin * likely demand ischemia from CVA * follow up echo. DVT prophylaxis: Lovenox. DW patient's son at bedside. Medications at Discharge Home Medications lisinopril 10 mg tablet 10 mg PO DAILY #30 tabs 02/25/19 aspirin 81 mg tablet,delayed release 81 mg PO DAILY [facility] 07/20/22 alendronate 35 mg tablet 35 mg PO DAILY 03/11/23 atorvastatin 80 mg tablet 80 mg PO QHS 03/11/23 mirtazapine 30 mg tablet 30 mg PO QHS 03/11/23 calcium carbonate (Calcium 500) 500 mg PO DAILY 10/25/23 clopidogrel 75 mg tablet 75 mg PO DAILY #30 tabs 10/17/25 fenofibrate nanocrystallized 145 mg tablet 145 mg PO DAILY #30 tabs 10/17/25 food supplemt, lactose-reduced 0.08 gram-1.5 kcal/mL oral liquid (Ensure Plus High Protein) 120 ml PO 4X/DAY #120 mL 10/17/25 Hospital Course Operations None Procedures 2-D Echocardiogram Summary of Care Provided Hospital Course: Greater than 30-minute spent on discharge This is a 79-year-old female presents with confusion at home. Patient underwent a workup and was evaluated by neurology who noted the patient had a stroke on the MRI. Recommended loading with clopidogrel and then daily clopidogrel as well as aspirin, starting fenofibrate in addition to the high intensity statin that she is already on. Also recommending 30-day event monitor. Patient to be discharged to assisted living in stable condition. Weight / BMI Weight Weight: 44.1 kg Body Mass Index (BMI) 16.7 ABG / Lab / Microbiology Data 10/17/25 05:20 10/17/25 05:20 Laboratory: Laboratory Results - last 24 hr 10/16/25 18:35: WBC 8.7, RBC 4.94, Hgb 15.4 H, Hct 47.3 H, MCV 95.7, MCH 31.2, MCHC 32.6, RDW Std Deviation 48.4 H, RDW Coeff of [place] 13.7, Plt Count 276, MPV 9.2, Immature Gran % (Auto) 0.300, Neut % (Auto) 72.6 H, Lymph % (Auto) 17.3 L, Davis % (Auto) 8.0, Eos % (Auto) 1.0, Baso % (Auto) 0.8, Absolute Neuts (auto) 6.3, Absolute Lymphs (auto) 1.51, Nucleated RBC % 0, PT 12.5, INR 0.9, APTT 22.2 L, Sodium 141, Potassium 3.8, Chloride 100, Carbon Dioxide 27.2, Anion Gap 14, BUN 17, Creatinine 0.90, Estim Creat Clear Calc 30.49 L, Est GFR (MDRD) Non-Af 65, BUN/Creatinine Ratio 18.8, Glucose 130 H, Calcium 10.8, Troponin T High Sens 57 H* 10/16/25 21:00: Magnesium 1.6, Troponin T Hi Sens 2 Hr 53 H 10/16/25 21:37: Urine Color Yellow, Urine Clarity Clear, Urine pH 6.0, Ur Specific [place] 1.010, Urine Protein 30 H, Urine Glucose (UA) Normal, Urine Ketones 5 H, Urine Occult Blood 25 H, Urine Nitrite Negative, Urine Bilirubin Negative, Urine Urobilinogen Normal, Ur Leukocyte Esterase Negative, Urine RBC 0 SEEN, Urine WBC 0 SEEN, Ur Squamous Epith Cells 0 SEEN, Urine Bacteria 0 SEEN, Urine Mucus 0 SEEN 10/16/25 23:10: Ammonia 23.3, Troponin T Hi Sens 4Hr 50 H, Procalcitonin 0.02 10/17/25 05:20: WBC 7.8, RBC 4.47, Hgb 14.1, Hct 41.9, MCV 93.7, MCH 31.5, MCHC 33.7, RDW Std Deviation 46.4 H, RDW Coeff of [place] 13.5, Plt Count 253, MPV 9.2, Immature Gran % (Auto) 0.400, Neut % (Auto) 60.0, Lymph % (Auto) 28.1, Davis % (Auto) 9.7, Eos % (Auto) 1.0, Baso % (Auto) 0.8, Absolute Neuts (auto) 4.7, Absolute Lymphs (auto) 2.18, Nucleated RBC % 0, Sodium 138, Potassium 3.7, Chloride 103, Carbon Dioxide 23.2, Anion Gap 12, BUN 14, Creatinine 0.67 L, E stim Creat Clear Calc 35.38 L, Est GFR (MDRD) Non-Af 89, BUN/Creatinine Ratio 21.0 H, Glucose 81, Calcium 9.5, Total Bilirubin 0.38, AST 20, ALT 10, Alkaline Phosphatase 94, Total Protein 6.3, Albumin 3.8, Globulin 2.5, Albumin/Globulin Ratio 1.6, Triglycerides 111, Cholesterol 195, LDL Cholesterol, Calc 111, VLDL Cholesterol 22, HDL Cholesterol 64, Cholesterol/HDL Ratio 3.05 Microbiology: Microbiology 10/17/25 01:00 Mucosa - Nasopharyngeal Respiratory Panel (PCR) - Final Radiography Diagnostic Testing: Radiology Impression Chest X-Ray 10/16/25 00:20 IMPRESSION: No evidence for acute abnormality. Reading Location: [place] [id number] 10/16/25 18:33 IMPRESSION: Moderate global cerebral atrophy with severe chronic microvascular ischemic changes. No CT evidence of acute hemorrhage or acute infarction. Patent intracranial and extracranial carotid and vertebral arteries without hemodynamically significant stenosis. No acute intracranial abnormality detected. Critical results were communicated to [facility] at 6:55 p.m.. Reading Location: [facility] Head/Neck CTA 10/16/25 18:35 IMPRESSION: Moderate global cerebral atrophy with severe chronic microvascular ischemic changes. No CT evidence of acute hemorrhage or acute infarction. Patent intracranial and extracranial carotid and vertebral arteries without hemodynamically significant stenosis. No acute intracranial abnormality detected. Critical results were communicated to [facility] at 6:55 p.m.. Reading Location[facility] [place] [facility] [place] Inst[place] DC O2, CPAP, BIPAP Needs Home O2 Discharge instructions: No Meaningful Use Info Meaningful Use Meaningful Use Diagnoses (Choose all that apply): Ischemic CVA CVA Therapy Assessed for PT,OT and/or ST?: Yes Ischemic Stroke Antithrombotic order at d/c?: Yes Dx of Atrial fib/flutter?: No Anticoagulant at discharge?: No Reason anticoagulant not ordered: Treatment not Indicated Statins at discharge?: Yes Primary Dx Acute Ischemic CVA?: Yes IV thrombolytic ordered during stay?: No Reason IV thrombolytic not ordered: Treatment not Indicated Discharge Plan Admission Admit Date/Time: 10/16/25 22:30 Primary Reason for Your Visit: Stroke Attending Provider: Hai Naranjo Primary Care Provider: Amisha Torrez Consulting Providers: Jovanny Cage; Víctor Davis; Breann Watkins; Maeve Hernandez; Tiara Liu; Maicol Guadalupe; Lola Clinton; Ky Paredes; David Arias; Maninder Perez; Patricia Lazaro; Laura Perkins; Mark Ledesma; Aileen Zarate; Jose Rutherford; Alis Ellsworth; Rafat Whelan; Ema Gomez; Moiz Chaparro; Paty Olea; Chiquis Sarkar; Maryam Sneed Discharge Orders/Prescriptions Prescriptions: New clopidogrel 75 mg Tablet 75 mg PO DAILY Qty: 30 0RF fenofibrate nanocrystallized 145 mg Tablet 145 mg PO DAILY Qty: 30 0RF Ensure Plus High Protein 0.08 gram-1.5 kcal/mL Liquid 120 ml PO 4X/DAY Qty: 120 0RF Continued calcium carbonate [Calcium 500] 500 mg calcium (1,250 mg) tablet,chewable 500 mg PO DAILY lisinopril 10 MG tablet 10 mg PO DAILY Qty: 30 0RF aspirin 81 mg Tablet,Delayed Release (Dr/Ec) 81 mg PO DAILY atorvastatin 80 mg tablet 80 mg PO QHS alendronate 35 mg tablet 35 mg PO DAILY mirtazapine 30 mg tablet 30 mg PO QHS Other Ambulatory Orders: 30 Day Event Recorder Preventi (Urgent) Timeframe: 1 Day Facility: [facility] - Location: Cardiovascular Services Ordered By: Dr. Hai Naranjo Referrals / Follow Up: [facility] [Provider Group] - Within 1 Month Amisha Torrez MD [Primary Care Provider, Family Practice] - Within 2 Weeks Disposition Disposition (needs filled in before D/C Order can be placed): Home Health Service Charges/Coding Visit Charges Inpatient E&M: 83341 Disch Hosp >30min
--- NOTE | 2025-10-17 15:32 | CASEMGMT ---
Social Work SW notified the physician that the patient has been accepted at an [facility]. SW called the son Jimmy and informed him that the DC orders are completed and the patient can DC. The son plans on transporting the patient. The nurse was notified of the DC plan. SW notified [facility] through [facility] that the DC orders are completed and SW sent them the DC orders through [facility]. CLAUDE Kimball
--- NOTE | 2025-10-17 15:47 | PHA.DC.COU.R ---
Pharmacy [facility] has performed discharge medication counseling for this patient. The patient was counseled on the following discharge medications and changes in medications for homegoing review. - Clopidogrel 75 mg tablet, Fenofibrate 145 mg tablet The Reason for Use, instructions for use, and potential side effects were reviewed for all new medications. The patient's questions regarding all of their medications were answered. The patient was able to verbally demonstrate an understanding of their discharge medications. Medications at Discharge Home Medications lisinopril 10 mg tablet 10 mg PO DAILY #30 tabs 02/25/19 aspirin 81 mg tablet,delayed release 81 mg PO DAILY [facility] 07/20/22 alendronate 35 mg tablet 35 mg PO DAILY 03/11/23 atorvastatin 80 mg tablet 80 mg PO QHS 03/11/23 mirtazapine 30 mg tablet 30 mg PO QHS 03/11/23 calcium carbonate (Calcium 500) 500 mg PO DAILY 10/25/23 clopidogrel 75 mg tablet 75 mg PO DAILY #30 tabs 10/17/25 fenofibrate nanocrystallized 145 mg tablet 145 mg PO DAILY #30 tabs 10/17/25 food supplemt, lactose-reduced 0.08 gram-1.5 kcal/mL oral liquid (Ensure Plus High Protein) 120 ml PO 4X/DAY #120 mL 10/17/25
--- NOTE | 2025-10-17 16:48 | CASEMGMT ---
Social Work PHQ9 not completed due to the patients confusion. CLAUDE Kimball
--- NOTE | 2025-10-17 16:51 | NURSING ---
This RN attempted to call [facility] at [phone], [phone], & [phone] using a different extension each time. No answer.
== END 2025-10-17 16:35 | disposition home health service (06) ==
LOC: ED 22:45 → PCU 23:52
PROVIDERS: Admitting Provider Family Medicine; Emergency Provider Student in an Organized Health Care Education/Training Program; PCP Family Medicine
DX: I63.9 Cerebral infarction, unspecified (principal); F02.80 Dementia in other diseases classified elsewhere, unspecified severity, without behavioral disturbance, psychotic disturbance, mood disturbance, and anxiety; R47.01 Aphasia; Z79.02 Long term (current) use of antithrombotics/antiplatelets; R79.89 Other specified abnormal findings of blood chemistry; Z86.73 Personal history of transient ischemic attack (TIA), and cerebral infarction without residual deficits; F17.210 Nicotine dependence, cigarettes, uncomplicated; N18.2 Chronic kidney disease, stage 2 (mild); E78.5 Hyperlipidemia, unspecified; Z79.83 Long term (current) use of bisphosphonates; I12.9 Hypertensive chronic kidney disease with stage 1 through stage 4 chronic kidney disease, or unspecified chronic kidney disease; F41.9 Anxiety disorder, unspecified; Z79.82 Long term (current) use of aspirin; Z79.899 Other long term (current) drug therapy; F32.A Depression, unspecified; R73.9 Hyperglycemia, unspecified
CPT/HCPCS: 36415; 70450; 70496; 70498; 70551; 71046; 80048; 80053; 80061; 81001; 82140; 82962; 83735; 84145; 84484; 85025; 85610; 85730; 87633; 92523; 93005; 93306; 94762; 96360; 96361; 96372; 97162; 97166; 97802; 99221; 99285; Q9967; A4216; G0378

== ENCOUNTER → 2025-10-21 05:00 | Outpatient (REF) | payer MEDICARE, SELFPAY ==
--- OUTSIDE RECORDS SUMMARY | 2025-10-21 03:10 | XMS RPT_ITS | CCD ---
Author Organization [facility] CliniSymi Care Team Providers Care Research Kennel Supervisor Name Role Phone Chyna BETANCOURT, Alonso Keenan Primary Care Provider MD Ike Palacios Emergency Provider Dr. Amisha Torrez Primary Care Provider Dr. Vijay Juárezit Provider Dr. Vijay Juárez Other Provider Dr. Hai Doe Other Provider Donnell CONFIGURATION MANAGEMENT ANALYST, RAFAL-C Neelam Attending Provider Dr. Cresencio Villarreal [...] Dr. Vijay Juárez Referring Provider Dr. Rene Daivs Attending Provider Dr. Rene Davis Other Provider [...] Referring Unavailable ALONSO OBANDO Primary Care Unavailable Ncfaisal Amisha Referring Unavailable Amisha Torrez Attending Unavailable [...] Drug Class(es) Dates Sig (Normalized) Sig (Original) [id number] 200 actuat albuterol 0.09 mg/actuat metered dose [...] Absolute Lymph 1.20 X10 3/uL Normal 0.83-4.51 [facility] Comment on above: Performed By: #### L 100.0100, L500.4050, L503.0105, L500.4100, L506.1000 #### [facility] [address] [place], [place], [id number] Absolute Neut 5.8 X10 3/uL Normal 2.0-7.7 [facility] Comment on above: Performed By: #### L 100.0100, L500.4050, L503.0105, L500.4100, L506.1000 #### [facility] [address] [place] [place], [address] Basophils/100 WBC (Bld) 0.4 % Normal 0-1 [facility] Comment on above: Performed By: #### L 100.0100, L500.4050, L503.0105, L500.4100, L506.1000 #### [facility] [address] [place], [address] Eosinophils/100 WBC (Bld) 0.8 % Normal 0-5 [facility] Comment on above: Performed By: #### L 100.0100, L500.4050, L503.0105, L500.4100, L506.1000 #### [facility] [address] [place], [address] Erythrocyte distribution width (RBC) [Ratio] 13.2 % Normal 11.6-14.6 [facility] Comment on above: Performed By: #### L 100.0100, L500.4050, L503.0105, L500.4100, L506.1000 #### [facility] [address] [place], [address] Hematocrit (Bld) [Volume fraction] 50.8 % High 37-47 [facility] Comment on above: Performed By: #### L 100.0100, L500.4050, L503.0105, L500.4100, L506.1000 #### [facility] [address] [place], [address] Hemoglobin (Bld) [Mass/Vol] 16.1 g/dL High 12.0-15.0 [facility] Comment on above: Performed By: #### L 100.0100, L500.4050, L503.0105, L500.4100, L506.1000 #### [facility] [address] [place], [address] IG% 0.300 Normal 0.0-0.9 [facility] Comment on above: Result Comment: IG% - Immature Granulocytes (promyelocytes, myelocytes and metamyelocytes) > 1% indicates that a LEFT SHIFT is Present. Performed By: #### L 100.0100, L500.4050, L503.0105, L500.4100, L506.1000 #### [facility] [address] [place], [address] Lymphocytes/100 WBC (Bld) 15.6 % Low 19-41 [facility] Comment on above: Performed By: #### L 100.0100, L500.4050, L503.0105, L500.4100, L506.1000 #### [facility] [address] [place], [address] MCH (RBC) [Entitic mass] 30.7 pg Normal 27.0-32.0 [facility] Comment on above: Performed By: #### L 100.0100, L500.4050, L503.0105, L500.4100, L506.1000 #### [facility] [address] [place], [address] MCHC (RBC) [Mass/Vol] 31.7 g/dL Low 32-36 [facility] Comment on above: Performed By: #### L 100.0100, L500.4050, L503.0105, L500.4100, L506.1000 #### [facility] [address] [place], [address] MCV (RBC) [Entitic vol] 96.8 fL Normal 81-99 [facility] Comment on above: Performed By: #### L 100.0100, L500.4050, L503.0105, L500.4100, L506.1000 #### [facility] [address] [place], [address] Monocytes/100 WBC (Bld) 8.1 % Normal 0-10 [facility] Comment on above: Performed By: #### L 100.0100, L500.4050, L503.0105, L500.4100, L506.1000 #### [facility] [address] [place], [address] Neutrophils/100 WBC (Bld) 74.8 % High 47-70 [facility] Comment on above: Performed By: #### L 100.0100, L500.4050, L503.0105, L500.4100, L506.1000 #### [facility] [address] [place], [address] Nucleated RBC (Bld) [#/Vol] 0 10*3/uL Normal 0-5 [facility] Comment on above: Performed By: #### L 100.0100, L500.4050, L503.0105, L500.4100, L506.1000 #### [facility] [address] [place], [address] Platelet mean volume (Bld) [Entitic vol] 9.8 fL Normal 6.2-12.0 [facility] Comment on above: Performed By: #### L 100.0100, L500.4050, L503.0105, L500.4100, L506.1000 #### [facility] [address] [place], [address] Platelets (Bld) [#/Vol] 232 10*3/uL Normal 150-450 [facility] Comment on above: Performed By: #### L 100.0100, L500.4050, L503.0105, L500.4100, L506.1000 #### [facility] [address] [place], [address] RBC (Bld) [#/Vol] 5.25 10*6/uL Normal 4.2-5.4 [facility] Comment on above: Performed By: #### L 100.0100, L500.4050, L503.0105, L500.4100, L506.1000 #### [facility] [address] [place], [address] RDW SD 47.0 fl High 35.1-43.9 [facility] Comment on above: Performed By: #### L 100.0100, L500.4050, L503.0105, L500.4100, L506.1000 #### [facility] [address] [place], [address] WBC (Bld) [#/Vol] 7.7 10*3/uL Normal 4.4-11.0 [facility] Comment on above: Performed By: #### L 100.0100, L500.4050, L503.0105, L500.4100, L506.1000 #### [facility] [address] [place], [address] Comprehensive Metabolic Prof [facility] 09-18-2024 Albumin [Mass/Vol] 4.2 g/dL Normal 3.2-5.0 [facility] Comment on above: Performed By: #### L 100.0100, L500.4050, L503.0105, L500.4100, L506.1000 #### [facility] [address] [place], [address] Albumin/Globulin [Mass ratio] 1.3 {ratio} Normal 0.9-2.4 [facility] Comment on above: Performed By: #### L 100.0100, L500.4050, L503.0105, L500.4100, L506.1000 #### [facility] [address] [place], [address] ALK P 92 U/L Normal 45-117 [facility] Comment on above: Performed By: #### L 100.0100, L500.4050, L503.0105, L500.4100, L506.1000 #### [facility] [address] [place], [address] ALT [Catalytic activity/Vol] 17 U/L Normal 13-56 [facility] Comment on above: Performed By: #### L 100.0100, L500.4050, L503.0105, L500.4100, L506.1000 #### [facility] [address] [place], [address] AST [Catalytic activity/Vol] 17 U/L Normal 15-37 [facility] Comment on above: Performed By: #### L 100.0100, L500.4050, L503.0105, L500.4100, L506.1000 #### [facility] [address] [place], [address] Bilirubin [Mass/Vol] 0.50 mg/dL Normal 0.20-1.00 [facility] Comment on above: Result Comment: For patients on eltrombopag therapy, use of Dimension [place] TBIL is not recommended. Performed By: #### L 100.0100, L500.4050, L503.0105, L500.4100, L506.1000 #### [facility] [address] [place], [address] BUN/CRE 15.6 RATIO Normal 10-20 [facility] Comment on above: Performed By: #### L 100.0100, L500.4050, L503.0105, L500.4100, L506.1000 #### [facility] [address] [place], [address] CA,Total 9.6 mg/dL Normal 8.5-10.1 [facility] Comment on above: Performed By: #### L 100.0100, L500.4050, L503.0105, L500.4100, L506.1000 #### [facility] [address] [place], [address] Chloride [Moles/Vol] 106 mmol/L Normal 98-107 [facility] Comment on above: Performed By: #### L 100.0100, L500.4050, L503.0105, L500.4100, L506.1000 #### [facility] [address] [place], [address] CO2 [Moles/Vol] 28.0 mmol/L Normal 21.0-32.0 [facility] Comment on above: Performed By: #### L 100.0100, L500.4050, L503.0105, L500.4100, L506.1000 #### [facility] [address] [place], [address] Creatinine [Mass/Vol] 0.84 mg/dL Normal 0.55-1.02 [facility] Comment on above: Result Comment: The validity of the calculated GFR GFRAA in patients over 70 years has not been determined. Clinical correlation is essential. Performed By: #### L 100.0100, L500.4050, L503.0105, L500.4100, L506.1000 #### [facility] [address] [place], [address] EST GFR - AA 85 mL/min Normal >60 [facility] Comment on above: Result Comment: Afri can Vincentian GFR Calc Performed By: #### L 100.0100, L500.4050, L503.0105, L500.4100, L506.1000 #### [facility] [address] [place], [address] GAP 6 Normal 5-15 [facility] Comment on above: Performed By: #### L 100.0100, L500.4050, L503.0105, L500.4100, L506.1000 #### [facility] [address] [place], [address] GFR/1.73 sq M.predicted among non-blacks MDRD (S/P/Bld) [Vol rate/Area] 70 mL/min/{1.73_m2} Normal >60 [facility] Comment on above: Result Comment: Non- GFR Calc Performed By: #### L 100.0100, L500.4050, L503.0105, L500.4100, L506.1000 #### [facility] [address] [place], [address] Globulin (S) [Mass/Vol] 3.2 g/dL Normal 2.2-4.2 [facility] Comment on above: Performed By: #### L 100.0100, L500.4050, L503.0105, L500.4100, L506.1000 #### [facility] [address] [place], [address] Glucose [Mass/Vol] 128 mg/dL High 74-106 [facility] Comment on above: Result Comment: Fast ing Glucose result greater than or equal to 126 mg/dL suggests DIABETES MELLITUS per A.D.A. criteria. Performed By: #### L 100.0100, L500.4050, L503.0105, L500.4100, L506.1000 #### [facility] [address] [place], [address] Potassium [Moles/Vol] 3.3 mmol/L Low 3.5-5.1 [facility] Comment on above: Performed By: #### L 100.0100, L500.4050, L503.0105, L500.4100, L506.1000 #### [facility] [address] [place], [address] Sodium [Moles/Vol] 140 mmol/L Normal 136-145 [facility] Comment on above: Performed By: #### L 100.0100, L500.4050, L503.0105, L500.4100, L506.1000 #### [facility] [address] [place], [address] T PROT 7.4 g/dL Normal 6.4-8.2 [facility] Comment on above: Performed By: #### L 100.0100, L500.4050, L503.0105, L500.4100, L506.1000 #### [facility] [address] [place], [address] Urea nitrogen [Mass/Vol] 13 mg/dL Normal 7-18 [facility] Comment on above: Performed By: #### L 100.0100, L500.4050, L503.0105, L500.4100, L506.1000 #### [facility] [address] [place], [address] Lipid Profileon 09-18-2024 Cholesterol [Mass/Vol] 224 mg/dL High 200 [facility] Comment on above: Result Comment: <200 mg/dL Desirable 200-240 mg/dL Borderline >240 mg/dL High Risk Performed By: #### L 100.0100, L500.4050, L503.0105, L500.4100, L506.1000 #### [facility] [address] [place], [address] Cholesterol in HDL [Mass/Vol] 69 mg/dL Normal [facility] Comment on above: Result Comment: The drugs N-Acetylcysteine and Metamizole may falsely depress this assay. Reference Range HDL <40 mg/dL Low HDL Cholesterol HDL >or= 60 mg/dL High HDL Cholesterol Performed By: #### L 100.0100, L500.4050, L503.0105, L500.4100, L506.1000 #### [facility] [address] [place], [address] Cholesterol in LDL [Mass/Vol] 122 mg/dL Normal 0-130 [facility] Comment on above: Performed By: #### L 100.0100, L500.4050, L503.0105, L500.4100, L506.1000 #### [facility] [address] [place], [address] Cholesterol in VLDL [Mass/Vol] 33 mg/dL Normal 5-40 [facility] Comment on above: Performed By: #### L 100.0100, L500.4050, L503.0105, L500.4100, L506.1000 #### [facility] [address] [place], [address] Triglyceride [Mass/Vol] 167 mg/dL Normal [facility] Comment on above: Result Comment: The drugs N-Acetylcysteine and Metamizole may falsely depress this assay. Serum Triglycerides Reference Interval Normal <150 mg/dL Borderline high 150 - 199 mg/dL High 200 - 499 mg/dL Very High > or = 500 mg/dL Performed By: #### L 100.0100, L500.4050, L503.0105, L500.4100, L506.1000 #### [facility] [address] [place], [address] Vitamin B12on 09-18-2024 Cobalamin (Vitamin B12) [Mass/Vol] pg/mL High 211-911 [facility] Comment on above: Performed By: #### L 100.0100, L500.4050, L503.0105, L500.4100, L506.1000 #### [facility] [address] [place], [address] Vitamin D,25 Hydroxyon 09-18 Vitamin D 25-OH 9.2 ng/mL Normal [facility] Comment on above: Result Comment: Irma min D 25(OH) Status Range Deficiency <20 ng/mL (50nmol/L) Insufficiency 20 - 30 ng/mL (50 - 75 nmol/L) Sufficiency 30 - 100 ng/mL (75 - 250 nmol/L) Toxicity >100 ng/mL (>250 nmol/L) Performed By: #### L 100.0100, L500.4050, L503.0105, L500.4100, L506.1000 #### [facility] [address] [place], [address] Breast Limited Unilateralon 03-01-2024 Breast Limited Unilateral [facility] Imaging Services [address] [place] [address] Breast Limited Unilateral MR#: [id number] Acct: [id number] Name: SHEELA TADEO Rep #: [id number] : 1945 F 78 From: Coleman parker MD PCP: Dr. Amisha Torrez MD Status: [facility] Study: Breast Limited Unilateral Date of Exam: Exam# [id number] Ordering Dr: April Koroma MD [id number] STUDY: ULTRASOUND BREAST - LEFT REASON FOR [...] Amisha Torrez MD; Dr. April Koroma MD Patient Accounts Coordinator: Signed Normal [facility] Surgery Specimen Level Rex 10-25-2023 Surgery Specimen Level IV Patient Age/Sex Location Account Attending Physician SHEELA TADEO 77/F LABSPEC [id number] Dr. April Koroma MD Specimen: [id number] Received: 10/26/23 Status: SHANE De La Rosa Num: [id number] Spec Type: BREAST BX Subm Dr: Dr. [...] labeled with the patient's name and designated "left breast mass 6 o'clock." The specimen consists of multiple elongated fragments of osborne-yellow fibroadipose tissue that in aggregate measure 1.0 x 0.2 x 0.1 cm. The entire specimen is submitted in one cassette. / SJ:laura 10/26/2023 TC:5 Ischemic Time: 1 minute Fixation Time: 30.5 hours CPT: 41836 Patient Age/Sex Location Account Attending Physician SHEELA TADEO 77/F LABSPEC [id number] Dr. April Koroma MD Signed (signature on file) Dr. Alfa Hyman MD 10/27/23 1442 Normal [facility] Comment on above: Performed By: #### P MEG #### [facility] [place], [address] Surgery Visit Reporton 12-20 -2023 Surgery Visit Report [facility] [address] [place] [address] OFFICE VISIT Date of Service: 10/25/23 MR#: [id number] Acct: [id number] Name: SHEELA TADEO Rep #: [id number] : 1945 Provider: Dr. April wang MD Age/Sex: 77/F Location: [facility] Status: Signed Intake Vital Signs 03/12/23 [...] mg PO DAILY 10/25/23 [History Confirmed 10/25/23] [facility] Medical History HTN (hypertension) Macular degeneration [...] No diseq (more content not included)... Normal [facility] Absolute lymphocyte countOrd ered By: Amisha Torrez on 08-14-2023 Lymphocytes Auto (Unsp spec) [#/Vol] 2.15 10*3/uL 0.83-4.51 [facility] Basophil percentageOrdered B y: Amisha Torrez on 08-14-2023 Basophils/100 WBC (Bld) 0.8 % 0-1 [facility] Bilirubin [Mass/Vol] 0.30 mg/dL 0.20-1.00 [facility] Comment on above: For patients on eltr ombopag therapy, use of Dimension [place] TBIL is not recommended. Chloride [Moles/Vol] 108 mmol/L 98-107 [facility] Cholesterol [Mass/Vol] 152 mg/dL <200 [facility] Comment on above: <200 mg/dL Desirable 200-240 mg/dL Borderline >240 mg/dL High Risk Eosinophils/100 WBC (Bld) 3.2 % 0-5 [facility] Glucose [Mass/Vol] 98 mg/dL 74-106 [facility] Neutrophils (Bld) [#/Vol] 3.2 10*3/uL 2.0-7.7 [facility] Neutrophils/100 WBC (Bld) 52.4 % 47-70 [facility] Potassium [Moles/Vol] 3.6 mmol/L 3.5-5.1 [facility] Protein [Mass/Vol] 7.1 g/dL 6.4-8.2 [facility] Sodium [Moles/Vol] 142 mmol/L 136-145 [facility] Triglyceride [Mass/Vol] 115 mg/dL <199 [facility] Comment on above: The drugs N-Acetylcy steine and Metamizole may falsely depress this assay.Serum Triglycerides Reference Interval Normal <150 mg/dL Borderline high 150 - 199 mg/dL High 200 - 499 mg/dL Very High > or = 500 mg/dL WBC (Bld) [#/Vol] 6.2 10*3/uL 4.4-11.0 [facility] Blood erythrocytes count (nu mber/volume)Ordered By: Amisha Torrez on 08-14-2023 RBC (Bld) [#/Vol] 5.35 10*6/uL 4.2-5.4 [facility] Blood hemoglobin measurement (mass/volume)Ordered By: Amisha Torrez on 08-14-2023 Hemoglobin (Bld) [Mass/Vol] 16.2 g/dL 12.0-15.0 [facility] Blood lymphocytes/100 leukoc ytesOrdered By: Amisha Torrez on 08-14-2023 Lymphocytes/100 WBC (Bld) 34.8 % 19-41 [facility] Blood monocytes/100 leukocyt esOrdered By: Amisha Torrez on 08-14-2023 Monocytes/100 WBC (Bld) 8.3 % 0-10 [facility] Blood platelet mean volumeOr dered By: Amisha Torrez on 08-14-2023 Platelet mean volume (Bld) [Entitic vol] 9.6 fL 6.2-12.0 [facility] Determination of erythrocyte mean corpuscular volume (MCV)Ordered By: Amisha Torrez on 08-14-2023 MCV (RBC) [Entitic vol] 99.3 fL 81-99 [facility] Hematocrit Auto (Bld) [Volum e fraction]Ordered By: Amisha Torrez on 08-14-2023 Hematocrit (Bld) [Volume fraction] 53.1 % 37-47 [facility] - Chemistry and C hemistry - challengeOrdered By: Amisha Torrez on 08-14-2023 ALP [Catalytic activity/Vol] 133 U/L 45-117 [facility] ALT [Catalytic activity/Vol] 23 U/L 13-56 [facility] CO2 [Moles/Vol] 26.0 mmol/L 21.0-32.0 [facility] Cobalamin (Vitamin B12) [Mass/Vol] 248 pg/mL 211-911 [facility] Globulin (S) [Mass/Vol] 3.2 g/dL 2.2-4.2 [facility] Urea nitrogen/Creatinine [Mass ratio] 17.7 mg/mg 10-20 [facility] - Hematology and Cell countsOrdered By: Amisha Torrez on 08-14-2023 Erythrocyte distribution width (RBC) [Entitic vol] 50.4 fL 35.1-43.9 [facility] Erythrocyte distribution width (RBC) [Ratio] 13.7 % 11.6-14.6 [facility] Immature granulocytes/100 WBC (Bld) 0.500 % 0.0-0.9 [facility] Comment on above: IG% - Immature Granu locytes (promyelocytes, myelocytes and metamyelocytes) > 1% indicates that a LEFT SHIFT is Present. MCH (RBC) [Entitic mass] 30.3 pg 27.0-32.0 [facility] Nucleated RBC/100 WBC (Bld) [Ratio] 0 % 0-5 [facility] MCHC Auto (RBC) [Mass/Vol]Or dered By: Amisha Torrez on 08-14-2023 MCHC (RBC) [Mass/Vol] 30.5 g/dL 32-36 [facility] No Panel InformationOrdered By: Amisha Torrez on 08-14-2023 Estimated GFR (MDRD) Amer 78 mL/min >60 [facility] Comment on above: GFR Calc Estimated GFR (MDRD) Non-Af Amer 64 mL/min >60 [facility] Comment on above: Non- GFR Calc Vitamin D 25-Hydroxy 16.3 ng/mL [facility] Comment on above: Vitamin D 25(OH) Sta tus Range Deficiency <20 ng/mL (50nmol/L) Insufficiency 20 - 30 ng/mL (50 - 75 nmol/L) Sufficiency 30 - 100 ng/mL (75 - 250 nmol/L) Toxicity >100 ng/mL (>250 nmol/L) Platelets bldOrdered By: Jono Torrez on 08-14-2023 Platelets (Bld) [#/Vol] 253 10*3/uL 150-450 [facility] Serum or plasma albumin guillermo urement (mass/volume)Ordered By: Amisha Torrez on 08-14-2023 Albumin [Mass/Vol] 3.9 g/dL 3.2-5.0 [facility] Serum or plasma albumin/glob ulin mass ratioOrdered By: Amisha Torrez on 08-14-2023 Albumin/Globulin [Mass ratio] 1.2 {ratio} 0.9-2.4 [facility] Serum or plasma calcium guillermo urement (mass/volume)Ordered By: Amisha Torrez on 08-14-2023 Calcium [Mass/Vol] 9.5 mg/dL 8.5-10.1 [facility] Serum or plasma cholesterol in HDL measurement (mass/volume)Ordered By: Amisha Torrez on 08-14-2023 Cholesterol in HDL [Mass/Vol] 87 mg/dL >40 [facility] Comment on above: The drugs N-Acetylcy steine and Metamizole may falsely depress this assay. Reference Range HDL <40 mg/dL Low HDL Cholesterol HDL >or= 60 mg/dL High HDL Cholesterol Serum or plasma cholesterol in VLDL measurement (mass/volume)Ordered By: Amisha Torrez on 08-14-2023 Cholesterol in VLDL [Mass/Vol] 23 mg/dL 5-40 [facility] Serum or plasma creatinine m easurement (mass/volume)Ordered By: Amisha Torrez on 08-14-2023 Creatinine [Mass/Vol] 0.90 mg/dL 0.55-1.02 [facility] Comment on above: The validity of the calculated GFR & GFRAA in patients over 70 years has not been determined. Clinical correlation is essential. Serum or plasma low density lipoprotein (LDL) cholesterol measurement (mass/volume)Ordered By: Amisha Torrez on 08-14-2023 Cholesterol in LDL [Mass/Vol] 42 mg/dL 0-130 [facility] Serum or plasma urea nitroge n measurement (mass/volume)Ordered By: Amisha Lore on 08-14-2023 Urea nitrogen [Mass/Vol] 16 mg/dL 7-18 [facility] Thin prep Papanicolaou smear with manual screeningOrdered By: Amishasolitario Torrez on 08-14-2023 Thin prep Papanicolaou smear with manual screening 21 U/L 15-37 [facility] Thin prep Papanicolaou smear with manual screening 8 5-15 [facility] CNOVon 07-20-2023 CNOV Office Visit ([id number]) SHEELA TADEO ([id number]) 1945 F Date Time Provider Department 07/20/23 [...] via US mail PCP: Alonso Obando [address] [place] [address] CEREBROVASCULAR HISTORY Sheela Tadeo is a 77 [...] part of the assessment. - Face, Velvet, Mosque, Marlen, Red Attention: - Repeat in forward [...] = 1 point 3/3 Language: - Repeat: "I only know that Rogelio is the one to help today" 11/06 - Repeat: "The cat always hid under the couch when the dogs were in the Room" 11/06 - Number of words that begin with F. (1 point for >/= to 11 words) 11/06 Abstraction: - Similarity between train and bicycle 11/06 - Similarity between watch and ruler 11/06 Delayed Recall - Words - Face 11/06 - Velvet 11/06 - Mosque - Marlen - Red 11/06 Orientation - Date - Month 11/06 - Year 11/06 - Day 11/06 - Place 11/06 - [facility] 11/06 Total Points Scored 25/30 Normal is [...] MINUTES. sumatr (more content not included)... Normal [facility] Basophil percentageOrdered B y: Dr. Naranjo on 03-12-2023 Cholesterol [Mass/Vol] 117 mg/dL <200 [facility] Comment on above: <200 mg/dL Desirable 200-240 mg/dL Borderline >240 mg/dL High Risk Triglyceride [Mass/Vol] 88 mg/dL <199 [facility] Comment on above: The drugs N-Acetylcy steine and Metamizole may falsely depress this assay.Serum Triglycerides Reference Interval Normal <150 mg/dL Borderline high 150 - 199 mg/dL High 200 - 499 mg/dL Very High > or = 500 mg/dL Serum or plasma cholesterol in HDL measurement (mass/volume)Ordered By: Dr. Naranjo on 03-12-2023 Cholesterol in HDL [Mass/Vol] 67 mg/dL >40 [facility] Comment on above: The drugs N-Acetylcy steine and Metamizole may falsely depress this assay. Reference Range HDL <40 mg/dL Low HDL Cholesterol HDL >or= 60 mg/dL High HDL Cholesterol Serum or plasma cholesterol in VLDL measurement (mass/volume)Ordered By: Dr. Naranjo on 03-12-2023 Cholesterol in VLDL [Mass/Vol] 18 mg/dL 5-40 [facility] Serum or plasma low density lipoprotein (LDL) cholesterol measurement (mass/volume)Ordered By: Dr. Naranjo on 03-12-2023 Cholesterol in LDL [Mass/Vol] 32 mg/dL 0-130 [facility] Absolute lymphocyte countOrd ered By: Dr. Azevedo on 03-11-2023 Lymphocytes Auto (Unsp spec) [#/Vol] 1.95 10*3/uL 0.83-4.51 [facility] Basophil percentageOrdered B y: Dr. Naranjo on 03-11-2023 Basophil percentage 0-5 SEEN /hpf 0-5 [facility] Basophil percentageOrdered B y: Dr. Azevedo on 03-11-2023 Basophils/100 WBC (Bld) 0.7 % 0-1 [facility] Chloride [Moles/Vol] 106 mmol/L 98-107 [facility] Eosinophils/100 WBC (Bld) 1.6 % 0-5 [facility] Glucose [Mass/Vol] 116 mg/dL 74-106 [facility] Comment on above: Fasting Glucose resu lt from 100 to 125 mg/dL suggests IMPAIRED HOMEOSTASIS per A.D.A. criteria. Neutrophils (Bld) [#/Vol] 4.3 10*3/uL 2.0-7.7 [facility] Neutrophils/100 WBC (Bld) 61.7 % 47-70 [facility] Potassium [Moles/Vol] 3.9 mmol/L 3.5-5.1 [facility] Sodium [Moles/Vol] 141 mmol/L 136-145 [facility] WBC (Bld) [#/Vol] 7.0 10*3/uL 4.4-11.0 [facility] Bilirubin Test strip Ql (U)O rdered By: Dr. Naranjo on 03-11-2023 Bilirubin Ql (U) Negative Negative [facility] Blood erythrocytes count (nu mber/volume)Ordered By: Dr. Azevedo on 03-11-2023 RBC (Bld) [#/Vol] 4.85 10*6/uL 4.2-5.4 [facility] Blood hemoglobin measurement (mass/volume)Ordered By: Dr. Azevedo on 03-11-2023 Hemoglobin (Bld) [Mass/Vol] 15.6 g/dL 12.0-15.0 [facility] Blood lymphocytes/100 leukoc ytesOrdered By: Dr. Azevedo on 03-11-2023 Lymphocytes/100 WBC (Bld) 27.8 % 19-41 [facility] Blood monocytes/100 leukocyt esOrdered By: Dr. Azevedo on 03-11-2023 Monocytes/100 WBC (Bld) 8.1 % 0-10 [facility] Blood platelet mean volumeOr dered By: Dr. Azevedo on 03-11-2023 Platelet mean volume (Bld) [Entitic vol] 8.9 fL 6.2-12.0 [facility] Determination of erythrocyte mean corpuscular volume (MCV)Ordered By: Dr. Azevedo on 03-11-2023 MCV (RBC) [Entitic vol] 97.9 fL 81-99 [facility] Glucose Glucometer (BldC) [M ass/Vol]Ordered By: Dr. Azevedo on 03-11-2023 Glucose [Mass/Vol] 110 mg/dL 74-106 [facility] Comment on above: MANAGEMENT OF PATIEN T CARE PER NURSING PROTOCOL Hematocrit Auto (Bld) [Volum e fraction]Ordered By: Dr. Azevedo on 03-11-2023 Hematocrit (Bld) [Volume fraction] 47.5 % 37-47 [facility] INR in Blood by Coagulation assayOrdered By: Dr. Azevedo on 03-11-2023 INR Coag (Bld) [Relative time] 0.9 {INR} [facility] Ketones Test strip Ql (U)Ord ered By: Dr. Naranjo on 03-11-2023 Ketones Ql (U) Negative Negative [facility] Laboratory - Chemistry and C hemistry - challengeOrdered By: Dr. Azevedo on 03-11-2023 CO2 [Moles/Vol] 27.0 mmol/L 21.0-32.0 [facility] Urea nitrogen/Creatinine [Mass ratio] 18.8 mg/mg 10-20 [facility] Laboratory - CoagulationOrde red By: Dr. Azevedo on 03-11-2023 aPTT Coag (Bld) [Time] 26.6 s 24.1-36.2 [facility] PT Coag (PPP) [Time] 12.0 s 11.7-14.9 [facility] Laboratory - Hematology and Cell countsOrdered By: Dr. Azevedo on 03-11-2023 Erythrocyte distribution width (RBC) [Entitic vol] 47.3 fL 35.1-43.9 [facility] Erythrocyte distribution width (RBC) [Ratio] 13.2 % 11.6-14.6 [facility] Immature granulocytes/100 WBC (Bld) 0.100 % 0.0-0.9 [facility] Comment on above: IG% - Immature Granu locytes (promyelocytes, myelocytes and metamyelocytes) > 1% indicates that a LEFT SHIFT is Present. MCH (RBC) [Entitic mass] 32.2 pg 27.0-32.0 [facility] Nucleated RBC/100 WBC (Bld) [Ratio] 0 % 0-5 [facility] MCHC Auto (RBC) [Mass/Vol]Or dered By: Dr. Azevedo on 03-11-2023 MCHC (RBC) [Mass/Vol] 32.8 g/dL 32-36 [facility] Mucus LM Ql (Urine sed)Order ed By: Dr. Naranjo on 03-11-2023 Mucus Ql (Urine sed) 0 SEEN /hpf [facility] Nitrite Test strip Ql (U)Ord ered By: Dr. Naranjo on 03-11-2023 Nitrite Ql (U) Negative Negative [facility] No Panel InformationOrdered By: Dr. Naranjo on 03-11-2023 Troponin I High Sensitivity 29 pg/mL 3.0-54.0 [facility] Comment on above: Please Note: New Erika t Units and Gender Specific Reference Ranges. For more information see Policy Stat Procedure [place] High Sensitivity Troponin (TNIH) and attachments. No Panel InformationOrdered By: Dr. Azevedo on 03-11-2023 Estimated Creatinine Clearance Calc 31.48 ml/min [facility] Estimated GFR (MDRD) Amer 61 mL/min >60 [facility] Comment on above: GFR Calc Estimated GFR (MDRD) Non-Af Amer 50 mL/min >60 [facility] Comment on above: Non- GFR Calc Troponin I High Sensitivity 32 pg/mL 3.0-54.0 [facility] Comment on above: Please Note: New Erika t Units and Gender Specific Reference Ranges. For more information see Policy Stat Procedure [place] High Sensitivity Troponin (TNIH) and attachments. Platelets bldOrdered By: Dr. Azevedo on 03-11-2023 Platelets (Bld) [#/Vol] 267 10*3/uL 150-450 [facility] Protein Test strip Ql (U)Ord ered By: Dr. Naranjo on 03-11-2023 Protein Ql (U) 15 mg/dl Negative [facility] Serum or plasma calcium guillermo urement (mass/volume)Ordered By: Dr. Azevedo on 03-11-2023 Calcium [Mass/Vol] 10.6 mg/dL 8.5-10.1 [facility] Serum or plasma creatinine m easurement (mass/volume)Ordered By: Dr. Azevedo on 03-11-2023 Creatinine [Mass/Vol] 1.12 mg/dL 0.55-1.02 [facility] Comment on above: The validity of the calculated GFR & GFRAA in patients over 70 years has not been determined. Clinical correlation is essential. Serum or plasma urea nitroge n measurement (mass/volume)Ordered By: Dr. Azevedo on 03-11-2023 Urea nitrogen [Mass/Vol] 21 mg/dL 7-18 [facility] Squamous epithelial cells de tection in urine sediment by light microscopyOrdered By: Dr. Naranjo on 03-11-2023 Epithelial cells.squamous LM Ql (Urine sed) 0 SEEN /hpf 5-10 [facility] Thin prep Papanicolaou smear with manual screeningOrdered By: Dr. Azevedo on 03-11-2023 Thin prep Papanicolaou smear with manual screening 8 5-15 [facility] Urine blood detectionOrdered By: Dr. Naranjo on 03-11-2023 RBC Ql (U) 10 /ul Negative [facility] RBC Ql (U) 0-5 SEEN /hpf 0-5 [facility] Urine clarityOrdered By: Dr. Naranjo on 03-11-2023 Clarity (U) Clear Clear [facility] Urine color determinationOrd ered By: Dr. Naranjo on 03-11-2023 Color (U) Yellow Yellow [facility] Urine glucose detectionOrder ed By: Dr. Naranjo on 03-11-2023 Glucose Ql (U) Normal mg/dl Normal [facility] Urine leukocyte esterase det ection by dipstickOrdered By: Dr. Naranjo on 03-11-2023 Leukocyte esterase Test strip Ql (U) 25 /ul Negative [facility] Urine pHOrdered By: Dr. Tabitha urbano on 03-11-2023 pH (U) 6.5 [pH] 5.0 - 8.0 [facility] Urine sediment bacteria coun t by microscopy (number/high power field)Ordered By: Dr. Naranjo on 03-11-2023 Bacteria LM.HPF (Urine sed) [#/Area] 0 /[HPF] None Seen [facility] Urine specific gravity measu rementOrdered By: Dr. Naranjo on 03-11-2023 Specific gravity (U) [Rel density] 1.015 1.002-1.030 [facility] Urobilinogen Auto test strip Ql (U)Ordered By: Dr. Naranjo on 03-11-2023 Urobilinogen Ql (U) Normal mg/dl Normal [facility] CNTHERAPYon 02-28-2023 CNTHERAPY OT/PT/Speech Visit (AKOTLK) SHEELA TADEO ([id number]) 1945 F Date Time Provider Department 02/28/23 10:45 AM KEN GABRIEL Date Time Provider Department Center 02/28/2023 10:45 AM [id number] GABRIEL ANALIA ZAMBRANO Reason for Visit: OT [...] Take one(1) tablet twice daily. Letter Dani [facility] Brigitte 02-17-2023 YENNIFERN Telephone (NECVS8) CARLYLESHEELA Fitzgerald ([id number]) 1945 F Date Time Provider Department 02/17/23 LA NEWBERRY NECVS8 During your visit today, we recorded the following information about you: Neelamtereza Hinojosa 02/21/2023 8:42 AM Addendum CV PHONE Name of caller : Michelle Relationship to patient : Daughter If not self Will need patient permission to release results or disclose health information with called documented in . Patient identified by Name and Date of . ( Sheela Amilcar Tadeo, 1945). Yes Number to return call [phone] Reason for Call: [facility] Call Center is calling to assist patient with Sooner appointment with Dr. Newberry. He states patient is being referred to Dr. Newberry by Dr. Chiquis Haider. 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 Patient has complex vascular issue. Patient currently schedule 05/15. Please advise whether patient can be scheduled in a new slot for possible sooner appointment. Please review and advise Neelam Jeronimo. Thanks. Thank you calling [facility]. You will receive a return call within [...] 8:42 AM Signed Called patient and left to reschedule sooner in [place]. Okay [...] Encounter Status:Closed by NEELAM HINOJOSA on 04/05/23 [facility] CNTHERAPYon 02-15-2023 CNTHERAPY OT/PT/Speech Visit (AKOTLK) SHEELA TADEO ([id number]) 1945 F Date Time Provider Department 02/15/23 10:00 AM KEN GABRIEL Date Time Provider Department Center 02/15/2023 10:00 AM [id number] GABRIEL Reason for Visit: OT EVAL [748] [...] TAB) Take one(1) tablet twice daily. Normal [facility] CNOVon 01-25-2023 CNOV Office Visit (CVAKPO) SHEELA TADEO ([id number]) 1945 F Date Time Provider Department 01/25/23 10:00 AM CHIQUIS HAIDER During your visit today, we recorded the following information about you: Pulse Blood pressure Weight Height 90/minute 151/101 45.4 kg 1.626 m Chiquis Haider MD 07/07/2023 9:46 AM [facility] Initial Visit Consultation is requested by: SELF PCP: Alonso Obando [address] [place] [address] [place] [address] CEREBROVASCULAR HISTORY Sheela Tadeo is a 77 [...] Adult) Pulse 90 Ht 162.6 cm (5' 4") Wt 45.4 kg (100 lb) BMI 17.16 [...] vibration. Coordination: Rapid alternating movements symmetric bilaterally. [id number], [id number] without dysmetria bilaterally. Gait: Narrow-based, normal spaced and stable without assistance. Tandem gait is stable. LABS Cholesterol: No results found for: CHOL LDL Chol, [place] (mg/dL) Date Value 10/15/2010 104 No results [...] ? SD (more content not included)... Normal [facility] Brigitte 01-25-2023 LUCIA Telephone (NEAGAK) SHEELA TADEO ([id number]) 1945 F Date Time Provider Department 01/25/23 CHIQUIS HAIDER During your visit today, we recorded the following information about you: [employer] 01/25/2023 12:26 PM Signed Submitted through portal Consult to Occupational Therapy #[id number] to be scheduled in the [place] location AND Consult to Neurology #[id number] to be scheduled in [facility] 02/09/2023 4:11 PM Signed Received through portal Consult to Occupational Therapy #[id number] for Driving Evaluation has been scheduled 02/15/23 in [place] with Ken Gabriel Indra Den 03/09/2023 2:08 PM Signed Received through portal Consult to Neurology #[id number], patient has been scheduled with Dr. La Newberry on 05/15/23 in [facility] Allergies As of Date: 01/25/2023 (No [...] Status:Closed by INDRA MORALES on 02/09/23 Normal [facility] Nuclear Ab IA Ql (S)on 01-25 PABLO BY EIA, QUAL Negative Normal Negative [facility] Comment on above: Order Comment: Speci men Type: BLOOD SPECIMEN Ordering Facility: [facility] Address: [address] [place] [address] Result Comment: The qualitative antinuclear antibody screen test performed using enzyme immunoassay including the following antigens: dsDNA, histones, SS-A, SS-B, Sm, Sm/PLASTICS PROCESS HAND, Scl-70, Heather-1, and centromeric antigens. Performed By: #### 4 [id number] #### [facility] CLIA [id number] [address] [place] [address] [place] Rheumatoid fact SerPl-aCncon 01-25-2023 Rheumatoid factor Qn [IU]/mL Normal <16 [facility] Comment on above: Order Comment: Speci men Type: BLOOD SPECIMEN Ordering Facility: [facility] Address: [address] [place] [address] Performed By: #### 1 [id number] #### [facility] CLIA [id number] [address] [place] [address] [place] Absolute lymphocyte countOrd ered By: Dr. Ruffin on 01-14-2023 Lymphocytes Auto (Unsp spec) [#/Vol] 2.28 10*3/uL 0.83-4.51 [facility] Basophil percentageOrdered B y: Dr. Ruffin on 01-14-2023 Basophils/100 WBC (Bld) 1.2 % 0-1 [facility] Chloride [Moles/Vol] 110 mmol/L 98-107 [facility] Cholesterol [Mass/Vol] 172 mg/dL <200 [facility] Comment on above: <200 mg/dL Desirable 200-240 mg/dL Borderline >240 mg/dL High Risk Eosinophils/100 WBC (Bld) 4.6 % 0-5 [facility] Glucose [Mass/Vol] 63 mg/dL 74-106 [facility] Neutrophils (Bld) [#/Vol] 2.5 10*3/uL 2.0-7.7 [facility] Neutrophils/100 WBC (Bld) 44.7 % 47-70 [facility] Potassium [Moles/Vol] 3.3 mmol/L 3.5-5.1 [facility] Sodium [Moles/Vol] 145 mmol/L 136-145 [facility] Triglyceride [Mass/Vol] 180 mg/dL <199 [facility] Comment on above: The drugs N-Acetylcy steine and Metamizole may falsely depress this assay.Serum Triglycerides Reference Interval Normal <150 mg/dL Borderline high 150 - 199 mg/dL High 200 - 499 mg/dL Very High > or = 500 mg/dL WBC (Bld) [#/Vol] 5.6 10*3/uL 4.4-11.0 [facility] Blood erythrocytes count (nu mber/volume)Ordered By: Dr. Ruffin on 01-14-2023 RBC (Bld) [#/Vol] 4.18 10*6/uL 4.2-5.4 [facility] Blood hemoglobin measurement (mass/volume)Ordered By: Dr. Ruffin on 01-14-2023 Hemoglobin (Bld) [Mass/Vol] 13.3 g/dL 12.0-15.0 [facility] Blood lymphocytes/100 leukoc ytesOrdered By: Dr. Ruffin on 01-14-2023 Lymphocytes/100 WBC (Bld) 40.4 % 19-41 [facility] Blood monocytes/100 leukocyt esOrdered By: Dr. Ruffin on 01-14-2023 Monocytes/100 WBC (Bld) 8.7 % 0-10 [facility] Blood platelet mean volumeOr dered By: Dr. Ruffin on 01-14-2023 Platelet mean volume (Bld) [Entitic vol] 9.0 fL 6.2-12.0 [facility] Determination of erythrocyte mean corpuscular volume (MCV)Ordered By: Dr. Ruffin on 01-14-2023 MCV (RBC) [Entitic vol] 99.8 fL 81-99 [facility] Hematocrit Auto (Bld) [Volum e fraction]Ordered By: Dr. Ruffin on 01-14-2023 Hematocrit (Bld) [Volume fraction] 41.7 % 37-47 [facility] Laboratory - Chemistry and C hemistry - challengeOrdered By: Dr. Ruffin on 01-14-2023 CO2 [Moles/Vol] 28.0 mmol/L 21.0-32.0 [facility] Urea nitrogen/Creatinine [Mass ratio] 27.5 mg/mg 10-20 [facility] Laboratory - Hematology and Cell countsOrdered By: Dr. Ruffin on 01-14-2023 Erythrocyte distribution width (RBC) [Entitic vol] 51.5 fL 35.1-43.9 [facility] Erythrocyte distribution width (RBC) [Ratio] 14.1 % 11.6-14.6 [facility] Immature granulocytes/100 WBC (Bld) 0.400 % 0.0-0.9 [facility] Comment on above: IG% - Immature Granu locytes (promyelocytes, myelocytes and metamyelocytes) > 1% indicates that a LEFT SHIFT is Present. MCH (RBC) [Entitic mass] 31.8 pg 27.0-32.0 [facility] Nucleated RBC/100 WBC (Bld) [Ratio] 0 % 0-5 [facility] MCHC Auto (RBC) [Mass/Vol]Or dered By: Dr. Ruffin on 01-14-2023 MCHC (RBC) [Mass/Vol] 31.9 g/dL 32-36 [facility] No Panel InformationOrdered By: Dr. Ruffin on 01-14-2023 Estimated Creatinine Clearance Calc 34.55 ml/min [facility] Estimated GFR (MDRD) Amer 94 mL/min >60 [facility] Comment on above: GFR Calc Estimated GFR (MDRD) Non-Af Amer 78 mL/min >60 [facility] Comment on above: Non- GFR Calc Platelets bldOrdered By: Dr. Ruffin on 01-14-2023 Platelets (Bld) [#/Vol] 302 10*3/uL 150-450 [facility] Serum or plasma calcium guillermo urement (mass/volume)Ordered By: Dr. Ruffin on 01-14-2023 Calcium [Mass/Vol] 8.5 mg/dL 8.5-10.1 [facility] Serum or plasma cholesterol in HDL measurement (mass/volume)Ordered By: Dr. Ruffin on 01-14-2023 Cholesterol in HDL [Mass/Vol] 56 mg/dL >40 [facility] Comment on above: The drugs N-Acetylcy steine and Metamizole may falsely depress this assay. Reference Range HDL <40 mg/dL Low HDL Cholesterol HDL >or= 60 mg/dL High HDL Cholesterol Serum or plasma cholesterol in VLDL measurement (mass/volume)Ordered By: Dr. Ruffin on 01-14-2023 Cholesterol in VLDL [Mass/Vol] 36 mg/dL 5-40 [facility] Serum or plasma creatinine m easurement (mass/volume)Ordered By: Dr. Ruffin on 01-14-2023 Creatinine [Mass/Vol] 0.76 mg/dL 0.55-1.02 [facility] Comment on above: The validity of the calculated GFR & GFRAA in patients over 70 years has not been determined. Clinical correlation is essential. Serum or plasma low density lipoprotein (LDL) cholesterol measurement (mass/volume)Ordered By: Dr. Ruffin on 01-14-2023 Cholesterol in LDL [Mass/Vol] 80 mg/dL 0-130 [facility] Serum or plasma urea nitroge n measurement (mass/volume)Ordered By: Dr. Ruffin on 01-14-2023 Urea nitrogen [Mass/Vol] 21 mg/dL 7-18 [facility] Thin prep Papanicolaou smear with manual screeningOrdered By: Dr. Ruffin on 01-14-2023 Thin prep Papanicolaou smear with manual screening 7 5-15 [facility] Glucose Glucometer (BldC) [M ass/Vol]Ordered By: Dr. Ruffin on 01-13-2023 Glucose [Mass/Vol] 96 mg/dL 74-106 [facility] Comment on above: MANAGEMENT OF PATIEN T CARE PER NURSING PROTOCOL INR in Blood by Coagulation assayOrdered By: Dr. Munguia on 01-13-2023 INR Coag (Bld) [Relative time] 1.0 {INR} [facility] Laboratory - CoagulationOrde red By: Dr. Munguia on 01-13-2023 aPTT Coag (Bld) [Time] 24.0 s 24.1-36.2 [facility] PT Coag (PPP) [Time] 12.6 s 11.7-14.9 [facility] No Panel InformationOrdered By: Dr. Munguia on 01-13-2023 Troponin I High Sensitivity 23 pg/mL 3.0-54.0 [facility] Comment on above: Please Note: New Erika t Units and Gender Specific Reference Ranges. For more information see Policy Stat Procedure [place] High Sensitivity Troponin (TNIH) and attachments. Absolute lymphocyte counton 09-14-2022 Lymphocytes Auto (Unsp spec) [#/Vol] 1.81 10*3/uL 0.83-4.51 [facility] Work Phone: Basophil percentageon 2021 Basophils/100 WBC (Bld) 0.4 % 0-1 [facility] Work Phone: Bilirubin [Mass/Vol] 0.30 mg/dL 0.20-1.00 [facility] Work Phone: Comment on above: For patients on eltr ombopag therapy, use of Dimension [place] TBIL is not recommended. Chloride [Moles/Vol] 110 mmol/L 98-107 [facility] Work Phone: Cholesterol [Mass/Vol] 219 mg/dL <200 [facility] Work Phone: Comment on above: <200 mg/dL Desirable 200-240 mg/dL Borderline >240 mg/dL High Risk Eosinophils/100 WBC (Bld) 6.7 % 0-5 [facility] Work Phone: Glucose [Mass/Vol] 96 mg/dL 74-106 [facility] Work Phone: Neutrophils (Bld) [#/Vol] 5.1 10*3/uL 2.0-7.7 [facility] Work Phone: Neutrophils/100 WBC (Bld) 61.6 % 47-70 [facility] Work Phone: Potassium [Moles/Vol] 3.7 mmol/L 3.5-5.1 [facility] Work Phone: Protein [Mass/Vol] 7.2 g/dL 6.4-8.2 [facility] Work Phone: Sodium [Moles/Vol] 142 mmol/L 136-145 [facility] Work Phone: Triglyceride [Mass/Vol] 166 mg/dL <199 [facility] Work Phone: Comment on above: The drugs N-Acetylcy steine and Metamizole may falsely depress this assay.Serum Triglycerides Reference Interval Normal <150 mg/dL Borderline high 150 - 199 mg/dL High 200 - 499 mg/dL Very High > or = 500 mg/dL WBC (Bld) [#/Vol] 8.2 10*3/uL 4.4-11.0 [facility] Work Phone: Blood erythrocytes count (nu mber/volume)on 09-14-2022 RBC (Bld) [#/Vol] 4.95 10*6/uL 4.2-5.4 [facility] Work Phone: Blood hemoglobin measurement (mass/volume)on 09-14-2022 Hemoglobin (Bld) [Mass/Vol] 15.1 g/dL 12.0-15.0 [facility] Work Phone: Blood lymphocytes/100 leukoc yteson 09-14-2022 Lymphocytes/100 WBC (Bld) 22.0 % 19-41 [facility] Work Phone: Blood monocytes/100 leukocyt eson 09-14-2022 Monocytes/100 WBC (Bld) 9.1 % 0-10 [facility] Work Phone: Blood platelet mean volumeon 09-14-2022 Platelet mean volume (Bld) [Entitic vol] 9.4 fL 6.2-12.0 [facility] Work Phone: Determination of erythrocyte mean corpuscular volume (MCV)on 09-14-2022 MCV (RBC) [Entitic vol] 97.6 fL 81-99 [facility] Work Phone: Hematocrit Auto (Bld) [Volum e fraction]on 09-14-2022 Hematocrit (Bld) [Volume fraction] 48.3 % 37-47 [facility] Work Phone: Laboratory - Chemistry and C hemistry - challengeon 09-14-2022 ALP [Catalytic activity/Vol] 97 U/L 45-117 [facility] Work Phone: ALT [Catalytic activity/Vol] 15 U/L 13-56 [facility] Work Phone: CO2 [Moles/Vol] 27.0 mmol/L 21.0-32.0 [facility] Work Phone: Globulin (S) [Mass/Vol] 3.5 g/dL 2.2-4.2 [facility] Work Phone: Urea nitrogen/Creatinine [Mass ratio] 22.5 mg/mg 10-20 [facility] Work Phone: Laboratory - Hematology and Cell countson 09-14-2022 Erythrocyte distribution width (RBC) [Entitic vol] 48.9 fL 35.1-43.9 [facility] Work Phone: Erythrocyte distribution width (RBC) [Ratio] 13.5 % 11.6-14.6 [facility] Work Phone: Immature granulocytes/100 WBC (Bld) 0.200 % 0.0-0.9 [facility] Work Phone: Comment on above: IG% - Immature Granu locytes (promyelocytes, myelocytes and metamyelocytes) > 1% indicates that a LEFT SHIFT is Present. MCH (RBC) [Entitic mass] 30.5 pg 27.0-32.0 [facility] Work Phone: Nucleated RBC/100 WBC (Bld) [Ratio] 0 % 0-5 [facility] Work Phone: MCHC Auto (RBC) [Mass/Vol]on 09-14-2022 MCHC (RBC) [Mass/Vol] 31.3 g/dL 32-36 [facility] Work Phone: No Panel Informationon 09-14 Estimated GFR (MDRD) Amer 75 mL/min >60 [facility] Work Phone: Comment on above: GFR Calc Estimated GFR (MDRD) Non-Af Amer 62 mL/min >60 [facility] Work Phone: Comment on above: Non- GFR Calc Platelets bldon 09-14-2022 Platelets (Bld) [#/Vol] 253 10*3/uL 150-450 [facility] Work Phone: Serum or plasma albumin guillermo urement (mass/volume)on 09-14-2022 Albumin [Mass/Vol] 3.7 g/dL 3.2-5.0 [facility] Work Phone: Serum or plasma albumin/glob ulin mass ratioon 09-14-2022 Albumin/Globulin [Mass ratio] 1.1 {ratio} 0.9-2.4 [facility] Work Phone: Serum or plasma calcium guillermo urement (mass/volume)on 09-14-2022 Calcium [Mass/Vol] 9.6 mg/dL 8.5-10.1 [facility] Work Phone: Serum or plasma cholesterol in HDL measurement (mass/volume)on 09-14-2022 Cholesterol in HDL [Mass/Vol] 77 mg/dL >40 [facility] Work Phone: Comment on above: The drugs N-Acetylcy steine and Metamizole may falsely depress this assay. Reference Range HDL <40 mg/dL Low HDL Cholesterol HDL >or= 60 mg/dL High HDL Cholesterol Serum or plasma cholesterol in VLDL measurement (mass/volume)on 09-14-2022 Cholesterol in VLDL [Mass/Vol] 33 mg/dL 5-40 [facility] Work Phone: Serum or plasma creatinine m easurement (mass/volume)on 09-14-2022 Creatinine [Mass/Vol] 0.93 mg/dL 0.55-1.02 [facility] Work Phone: Comment on above: The validity of the calculated GFR & GFRAA in patients over 70 years has not been determined. Clinical correlation is essential. Serum or plasma low density lipoprotein (LDL) cholesterol measurement (mass/volume)on 09-14-2022 Cholesterol in LDL [Mass/Vol] 109 mg/dL 0-130 [facility] Work Phone: Serum or plasma urea nitroge n measurement (mass/volume)on 09-14-2022 Urea nitrogen [Mass/Vol] 21 mg/dL 7-18 [facility] Work Phone: Thin prep Papanicolaou smear with manual screeningon 09-14-2022 Thin prep Papanicolaou smear with manual screening 19 U/L 15-37 [facility] Work Phone: Thin prep Papanicolaou smear with manual screening 5 5-15 [facility] Work Phone: Basophil percentageon 2021 Chloride [Moles/Vol] 109 mmol/L 98-107 [facility] Work Phone: Cholesterol [Mass/Vol] 167 mg/dL <200 [facility] Work Phone: Comment on above: <200 mg/dL Desirable 200-240 mg/dL Borderline >240 mg/dL High Risk Glucose [Mass/Vol] 81 mg/dL 74-106 [facility] Work Phone: Potassium [Moles/Vol] 3.8 mmol/L 3.5-5.1 [facility] Work Phone: Sodium [Moles/Vol] 143 mmol/L 136-145 [facility] Work Phone: Triglyceride [Mass/Vol] 179 mg/dL <199 [facility] Work Phone: Comment on above: The drugs N-Acetylcy steine and Metamizole may falsely depress this assay.Serum Triglycerides Reference Interval Normal <150 mg/dL Borderline high 150 - 199 mg/dL High 200 - 499 mg/dL Very High > or = 500 mg/dL Laboratory - Chemistry and C hemistry - challengeon 07-21-2022 CO2 [Moles/Vol] 26.0 mmol/L 21.0-32.0 [facility] Work Phone: Urea nitrogen/Creatinine [Mass ratio] 23.4 mg/mg 10-20 [facility] Work Phone: No Panel Informationon 07-21 Estimated Creatinine Clearance Calc 43.20 ml/min [facility] Work Phone: Estimated GFR (MDRD) Amer 88 mL/min >60 [facility] Work Phone: Comment on above: GFR Calc Estimated GFR (MDRD) Non-Af Amer 73 mL/min >60 [facility] Work Phone: Comment on above: Non- GFR Calc Serum or plasma calcium guillermo urement (mass/volume)on 07-21-2022 Calcium [Mass/Vol] 9.5 mg/dL 8.5-10.1 [facility] Work Phone: Serum or plasma cholesterol in HDL measurement (mass/volume)on 07-21-2022 Cholesterol in HDL [Mass/Vol] 55 mg/dL >40 [facility] Work Phone: Comment on above: The drugs N-Acetylcy steine and Metamizole may falsely depress this assay. Reference Range HDL <40 mg/dL Low HDL Cholesterol HDL >or= 60 mg/dL High HDL Cholesterol Serum or plasma cholesterol in VLDL measurement (mass/volume)on 07-21-2022 Cholesterol in VLDL [Mass/Vol] 36 mg/dL 5-40 [facility] Work Phone: Serum or plasma creatinine m easurement (mass/volume)on 07-21-2022 Creatinine [Mass/Vol] 0.81 mg/dL 0.55-1.02 [facility] Work Phone: Comment on above: The validity of the calculated GFR & GFRAA in patients over 70 years has not been determined. Clinical correlation is essential. Serum or plasma low density lipoprotein (LDL) cholesterol measurement (mass/volume)on 07-21-2022 Cholesterol in LDL [Mass/Vol] 76 mg/dL 0-130 [facility] Work Phone: Serum or plasma urea nitroge n measurement (mass/volume)on 07-21-2022 Urea nitrogen [Mass/Vol] 19 mg/dL 7-18 [facility] Work Phone: Thin prep Papanicolaou smear with manual screeningon 07-21-2022 Thin prep Papanicolaou smear with manual screening 8 5-15 [facility] Work Phone: Absolute lymphocyte counton 07-20-2022 Lymphocytes Auto (Unsp spec) [#/Vol] 1.63 10*3/uL 0.83-4.51 [facility] Work Phone: Basophil percentageon 2021 Basophil percentage 0 SEEN /hpf 0-5 [facility] Work Phone: Basophils/100 WBC (Bld) 0.3 % 0-1 [facility] Work Phone: Bilirubin [Mass/Vol] 0.40 mg/dL 0.20-1.00 [facility] Work Phone: Comment on above: For patients on eltr ombopag therapy, use of Dimension [place] TBIL is not recommended. Chloride [Moles/Vol] 102 mmol/L 98-107 [facility] Work Phone: Eosinophils/100 WBC (Bld) 0.7 % 0-5 [facility] Work Phone: Glucose [Mass/Vol] 115 mg/dL 74-106 [facility] Work Phone: Comment on above: Fasting Glucose resu lt from 100 to 125 mg/dL suggests IMPAIRED HOMEOSTASIS per A.D.A. criteria. Neutrophils (Bld) [#/Vol] 6.7 10*3/uL 2.0-7.7 [facility] Work Phone: Neutrophils/100 WBC (Bld) 72.9 % 47-70 [facility] Work Phone: Potassium [Moles/Vol] 3.3 mmol/L 3.5-5.1 [facility] Work Phone: Protein [Mass/Vol] 6.8 g/dL 6.4-8.2 [facility] Work Phone: Sodium [Moles/Vol] 139 mmol/L 136-145 [facility] Work Phone: WBC (Bld) [#/Vol] 9.2 10*3/uL 4.4-11.0 [facility] Work Phone: Bilirubin Test strip Ql (U)o n 07-20-2022 Bilirubin Ql (U) Negative Negative [facility] Work Phone: Blood erythrocytes count (nu mber/volume)on 07-20-2022 RBC (Bld) [#/Vol] 4.80 10*6/uL 4.2-5.4 [facility] Work Phone: Blood hemoglobin measurement (mass/volume)on 07-20-2022 Hemoglobin (Bld) [Mass/Vol] 14.8 g/dL 12.0-15.0 [facility] Work Phone: Blood lymphocytes/100 leukoc yteson 07-20-2022 Lymphocytes/100 WBC (Bld) 17.8 % 19-41 [facility] Work Phone: Blood monocytes/100 leukocyt eson 07-20-2022 Monocytes/100 WBC (Bld) 7.9 % 0-10 [facility] Work Phone: Blood platelet mean volumeon 07-20-2022 Platelet mean volume (Bld) [Entitic vol] 9.3 fL 6.2-12.0 [facility] Work Phone: Determination of erythrocyte mean corpuscular volume (MCV)on 07-20-2022 MCV (RBC) [Entitic vol] 95.2 fL 81-99 [facility] Work Phone: Hematocrit Auto (Bld) [Volum e fraction]on 07-20-2022 Hematocrit (Bld) [Volume fraction] 45.7 % 37-47 [facility] Work Phone: Ketones Test strip Ql (U)on 07-20-2022 Ketones Ql (U) Negative Negative [facility] Work Phone: Laboratory - Chemistry and C hemistry - challengeon 07-20-2022 ALP [Catalytic activity/Vol] 73 U/L 45-117 [facility] Work Phone: ALT [Catalytic activity/Vol] 13 U/L 13-56 [facility] Work Phone: CO2 [Moles/Vol] 30.0 mmol/L 21.0-32.0 [facility] Work Phone: Globulin (S) [Mass/Vol] 3.5 g/dL 2.2-4.2 [facility] Work Phone: Urea nitrogen/Creatinine [Mass ratio] 22.0 mg/mg 10-20 [facility] Work Phone: Laboratory - Hematology and Cell countson 07-20-2022 Erythrocyte distribution width (RBC) [Entitic vol] 45.4 fL 35.1-43.9 [facility] Work Phone: Erythrocyte distribution width (RBC) [Ratio] 12.8 % 11.6-14.6 [facility] Work Phone: Immature granulocytes/100 WBC (Bld) 0.400 % 0.0-0.9 [facility] Work Phone: Comment on above: IG% - Immature Granu locytes (promyelocytes, myelocytes and metamyelocytes) > 1% indicates that a LEFT SHIFT is Present. MCH (RBC) [Entitic mass] 30.8 pg 27.0-32.0 [facility] Work Phone: Nucleated RBC/100 WBC (Bld) [Ratio] 0 % 0-5 [facility] Work Phone: MCHC Auto (RBC) [Mass/Vol]on 07-20-2022 MCHC (RBC) [Mass/Vol] 32.4 g/dL 32-36 [facility] Work Phone: Mucus LM Ql (Urine sed)on Mucus Ql (Urine sed) 0 SEEN /hpf [facility] Work Phone: Nitrite Test strip Ql (U)on 07-20-2022 Nitrite Ql (U) Negative Negative [facility] Work Phone: No Panel Informationon 07-20 Estimated Creatinine Clearance Calc 35.15 ml/min [facility] Work Phone: Estimated GFR (MDRD) Amer 73 mL/min >60 [facility] Work Phone: Comment on above: GFR Calc Estimated GFR (MDRD) Non-Af Amer 61 mL/min >60 [facility] Work Phone: Comment on above: Non- GFR Calc Platelets bldon 07-20-2022 Platelets (Bld) [#/Vol] 207 10*3/uL 150-450 [facility] Work Phone: Protein Test strip Ql (U)on 07-20-2022 Protein Ql (U) Negative Negative [facility] Work Phone: Serum or plasma albumin guillermo urement (mass/volume)on 07-20-2022 Albumin [Mass/Vol] 3.3 g/dL 3.2-5.0 [facility] Work Phone: Serum or plasma albumin/glob ulin mass ratioon 07-20-2022 Albumin/Globulin [Mass ratio] 0.9 {ratio} 0.9-2.4 [facility] Work Phone: Serum or plasma calcium guillermo urement (mass/volume)on 07-20-2022 Calcium [Mass/Vol] 11.2 mg/dL 8.5-10.1 [facility] Work Phone: Serum or plasma creatinine m easurement (mass/volume)on 07-20-2022 Creatinine [Mass/Vol] 0.95 mg/dL 0.55-1.02 [facility] Work Phone: Comment on above: The validity of the calculated GFR & GFRAA in patients over 70 years has not been determined. Clinical correlation is essential. Serum or plasma urea nitroge n measurement (mass/volume)on 07-20-2022 Urea nitrogen [Mass/Vol] 21 mg/dL 7-18 [facility] Work Phone: Squamous epithelial cells de tection in urine sediment by light microscopyon 07-20-2022 Epithelial cells.squamous LM Ql (Urine sed) 0 SEEN /hpf 5-10 [facility] Work Phone: Thin prep Papanicolaou smear with manual screeningon 07-20-2022 Thin prep Papanicolaou smear with manual screening 15 U/L 15-37 [facility] Work Phone: Thin prep Papanicolaou smear with manual screening 7 5-15 [facility] Work Phone: Urine blood detectionon 07-07 RBC Ql (U) 10 /ul Negative [facility] Work Phone: RBC Ql (U) 0 SEEN /hpf 0-5 [facility] Work Phone: Urine clarityon 07-20-2022 Clarity (U) Sl. Cloudy Clear [facility] Work Phone: Urine color determinationon 07-20-2022 Color (U) Yellow Yellow [facility] Work Phone: Urine glucose detectionon Glucose Ql (U) Normal mg/dl Normal [facility] Work Phone: Urine leukocyte esterase det ection by dipstickon 07-20-2022 Leukocyte esterase Test strip Ql (U) 25 /ul Negative [facility] Work Phone: Urine pHon 07-20-2022 pH (U) 6.5 [pH] 5.0 - 8.0 [facility] Work Phone: Urine sediment bacteria coun t by microscopy (number/high power field)on 07-20-2022 Bacteria LM.HPF (Urine sed) [#/Area] 1 /[HPF] None Seen [facility] Work Phone: Urine specific gravity measu rementon 07-20-2022 Specific gravity (U) [Rel density] 1.010 1.002-1.030 [facility] Work Phone: Urobilinogen Auto test strip Ql (U)on 07-20-2022 Urobilinogen Ql (U) Normal mg/dl Normal [facility] Work Phone: Whole blood hemoglobin A1c/t otal hemoglobin ratio (mass fraction)on 07-20-2022 HbA1c (Bld) [Mass fraction] 5.3 % 3.8-5.6 [facility] Work Phone: Comment on above: Normal < 5.7 % Predi abetic 5.7 - 6.4 % Diabetic >or= 6.5 % Please note range changes. Vital Signs Date Time Vital Sign Value Performing Clinician Faci lity 03-13-2023 11:10-0400 Body mass index (BMI) [Ratio] 17.4 kg/m2 Dr. Amisha Torrez Work Phone: [facility] 03-13-2023 09:00-0400 Body temperature 97.7 [degF] Dr. Amisha Torrez Work Phone: [facility] 03-13-2023 09:00-0400 Diastolic blood pressure 101 mm[Hg] Dr. Amisha Torrez Work Phone: [facility] 03-13-2023 09:00-0400 Heart rate 65 /min Dr. Amisha Torrez Work Phone: [facility] 03-13-2023 09:00-0400 Respiratory rate 16 /min Dr. Amisha Torrez Work Phone: [facility] 03-13-2023 09:00-0400 SaO2% (BldA) [Mass fraction] 100 % Dr. Amisha Torrez Work Phone: [facility] 03-13-2023 09:00-0400 Systolic blood pressure 147 mm[Hg] Dr. Amisha Torrez Work Phone: [facility] 03-12-2023 08:28-0400 Body height 162.[address] Amisha Torrez Work Phone: [facility] 03-12-2023 08:28-0400 Body weight 46.[address] Amisha Torrez Work Phone: [facility] 03-11-2023 20:00-0400 Body temperature 97.9 [degF] Dr. Amisha Torrez Work Phone: [facility] 03-11-2023 20:00-0400 Diastolic blood pressure 85 mm[Hg] Dr. Amisha Torrez Work Phone: [facility] 03-11-2023 20:00-0400 Heart rate 65 /min Dr. Amisha Torrez Work Phone: [facility] 03-11-2023 20:00-0400 Respiratory rate 18 /min Dr. Amisha Torrez Work Phone: [facility] 03-11-2023 20:00-0400 SaO2% (BldA) [Mass fraction] 97 % Dr. Amisha Torrez Work Phone: [facility] 03-11-2023 20:00-0400 Systolic blood pressure 114 mm[Hg] Dr. Amisha Torrez Work Phone: [facility] 03-11-2023 18:07-0400 Body height 157.[address] Amisha Torrez Work Phone: [facility] 03-11-2023 18:07-0400 Body mass index (BMI) [Ratio] 19.1 kg/m2 Dr. Amisha Torrez Work Phone: [facility] 03-11-2023 18:07-0400 Body weight 47.[address] Amisha Torrez Work Phone: [facility] 01-25-2023 10:04-0400 Body height 162.6 cm Chiquis Haider MD Work Phone: [facility] 01-25-2023 10:04-0400 Body weight 45.36 kg Chiquis Haider MD Work Phone: [facility] 01-25-2023 10:04-0400 Diastolic blood pressure 101 mm[Hg] Chiquis Haider MD Work Phone: [facility] 01-25-2023 10:04-0400 Heart rate 90 /min Chiquis Haider MD Work Phone: [facility] 01-25-2023 10:04-0400 Systolic blood pressure 151 mm[Hg] Chiquis Haider MD Work Phone: [facility] 01-14-2023 14:16-0500 Body temperature 98 [degF] Dr. Amisha Torrez Work Phone: [facility] 01-14-2023 14:16-0500 Diastolic blood pressure 96 mm[Hg] Dr. Amisha Torrez Work Phone: [facility] 01-14-2023 14:16-0500 Heart rate 68 /min Dr. Amisha Torrez Work Phone: [facility] 01-14-2023 14:16-0500 Respiratory rate 18 /min Dr. Amisha Torrez Work Phone: [facility] 01-14-2023 14:16-0500 SaO2% (BldA) [Mass fraction] 96 % Dr. Amisha Torrez Work Phone: [facility] 01-14-2023 14:16-0500 Systolic blood pressure 125 mm[Hg] Dr. Amisha Torrez Work Phone: [facility] 01-14-2023 03:47-0500 Body mass index (BMI) [Ratio] 17.6 kg/m2 Dr. Amisha Torrez Work Phone: [phone] [place] [address] 01-13-2023 18:50-0500 Body height 162.[address] Amisha Torrez Work Phone: [phone] [place] [address] 01-13-2023 18:50-0500 Body weight 46.[address] Amisha Torrez Work Phone: [facility] 10-11-2022 12:57-0500 Body mass index (BMI) [Ratio] 17.8 kg/m2 Dr. Amisha Torrez Work Phone: [facility] 10-11-2022 12:57-0500 Body temperature 97.7 [degF] Dr. Amisha Torrez Work Phone: [facility] 10-11-2022 12:57-0500 Body weight 47.[address] Amisha Torrez Work Phone: [facility] 10-11-2022 12:57-0500 Diastolic blood pressure 80 mm[Hg] Dr. Amisha Torrez Work Phone: [facility] 10-11-2022 12:57-0500 Heart rate 81 /min Dr. Amisha Torrez Work Phone: [facility] 10-11-2022 12:57-0500 Respiratory rate 16 /min Dr. Amisha Torrez Work Phone: [facility] 10-11-2022 12:57-0500 SaO2% (BldA) [Mass fraction] 100 % Dr. Amisha Torrez Work Phone: [facility] 10-11-2022 12:57-0500 Systolic blood pressure 128 mm[Hg] Dr. Amisha Torrez Work Phone: [facility] 07-21-2022 14:09-0400 Body temperature 98.1 [degF] MD Ike Palacios Work Phone: [facility] Work Phone: 07-21-2022 14:09-0400 Diastolic blood pressure 85 mm[Hg] MD Ike Palacios Work Phone: [facility] Work Phone: 07-21-2022 14:09-0400 Heart rate 76 /min MD Ike Palacios Work Phone: [facility] Work Phone: 07-21-2022 14:09-0400 Respiratory rate 18 /min MD Ike Palacios Work Phone: [facility] Work Phone: 07-21-2022 14:09-0400 SaO2% (BldA) [Mass fraction] 96 % MD Ike Palacios Work Phone: [facility] Work Phone: 07-21-2022 14:09-0400 Systolic blood pressure 132 mm[Hg] MD Ike Palacios Work Phone: [facility] Work Phone: 07-21-2022 10:22-0400 Body height 162.56 cm MD Ike Palacios Work Phone: [facility] Work Phone: 07-21-2022 10:22-0400 Body mass index (BMI) [Ratio] 17.5 kg/m2 MD Ike Palacios Work Phone: [facility] Work Phone: 07-21-2022 10:22-0400 Body weight 46.32 kg MD Ike Palacios Work Phone: [facility] Work Phone: 07-20-2022 16:15-0400 Body temperature 98.2 [degF] [facility] Work Phone: 07-20-2022 16:15-0400 Diastolic blood pressure 106 mm[Hg] [facility] Work Phone: 07-20-2022 16:15-0400 Heart rate 72 /min [facility] Work Phone: 07-20-2022 16:15-0400 Respiratory rate 16 /min [facility] Work Phone: 07-20-2022 16:15-0400 SaO2% (BldA) [Mass fraction] 99 % [facility] Work Phone: 07-20-2022 16:15-0400 Systolic blood pressure 169 mm[Hg] [facility] Work Phone: 07-20-2022 12:58-0400 Body height 162.56 cm [facility] Work Phone: 07-20-2022 12:58-0400 Body mass index (BMI) [Ratio] 16.7 kg/m2 [facility] Work Phone: 07-20-2022 12:58-0400 Body weight 44.2 kg [facility] Work Phone: Encounters Encounter Date Encounter Type Care Provider Facility Start: 10-16-2024 Encounter for genera l adult medical examination without abnormal findings [facility] Start: 09-18-2024 End: 09-18-2024 ambulatory [facility] Facility:[facility] Start: 03-01-2024 End: 03-01-2024 ambulatory [facility] Work Phone: Start: 03-01-2024 End: 03-01-2024 Patient encounter procedure [facility] Work Phone: Start: 03-01-2024 End: 03-01-2024 ambulatory Gower Miedel Facility:[facility] Start: 10-25-2023 End: 10-25-2023 ambulatory [facility] Facility:[facility] Start: 10-25-2023 End: 10-25-2023 ambulatory [facility] Facility:[facility] Start: 10-19-2023 End: 10-19-2023 ambulatory [facility] Work Phone: Start: 10-19-2023 End: 10-19-2023 Patient encounter procedure [facility] Work Phone: Start: 10-12-2023 End: 10-12-2023 ambulatory [facility] Work Phone: Start: 10-12-2023 End: 10-12-2023 Patient encounter procedure [facility] Work Phone: Start: 08-14-2023 End: 08-14-2023 ambulatory [facility] Work Phone: Start: 08-14-2023 End: 08-14-2023 Patient encounter procedure [facility] Start: 07-20-2023 End: 07-21-2023 ambulatory LA NEWBERRY Facility:[facility] Start: 06-26-2023 E-mail encounter fro m caregiver La Newberry MD Work Phone: [facility] Start: 06-26-2023 Patient encounter procedure La Newberry MD Work Phone: [facility] Comment on above: URGENT Appointment [facility] Start: 03-12-2023 Non-patient / Non-visit Dr. Amisha Torrez Work Phone: [facility] Start: 03-11-2023 Non-patient / Non-visit Dr. Amisha Torrez Work Phone: [facility] Start: 03-11-2023 End: 03-13-2023 Evaluation and management of inpatient Dr. 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) Start: 02-07-2023 End: 02-08-2023 ambulatory CHIQUIS HAIDER Facility:[facility] Start: 01-25-2023 End: 01-26-2023 ambulatory ALONSO OBANDO Facility:[facility] Start: 01-25-2023 End: 01-25-2023 ambulatory ALONSO OBANDO Facility:[facility] Start: 01-25-2023 End: 01-25-2023 Patient encounter procedure Chiquis Haider MD Work Phone: [facility] Comment on above: Elevated blood press ure reading without diagnosis of hypertension [R03.0 (ICD-10-CM)] (Primary Dx); 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); Arterial ischemic stroke, MCA (middle cerebral artery), left, acute (HCC) Start: 01-14-2023 Non-patient / Non-visit Dr. Amisha Torrez Work Phone: [facility] Start: 01-14-2023 Non-patient / Non-visit Dr. Amisha Torrez Work Phone: [facility] Start: 01-13-2023 End: 01-14-2023 Evaluation and management of inpatient [facility] Start: 01-13-2023 End: 01-14-[address] Amisha Torrez Work Phone: [facility] Work Phone: Start: 10-11-2022 End: 10-11-[address] Amisha Torrez Work Phone: [facility] Start: 09-14-2022 End: 09-14-2022 ambulatory MD Ike Palacios Work Phone: [facility] Work Phone: Start: 09-14-2022 End: 09-14-2022 Patient encounter procedure MD Ike [facility] Start: 07-21-2022 Non-patient / Non-visit MD Ike Palacios Work Phone: [facility] Start: 07-21-2022 Non-patient / Non-visit MD Ike Palacios Work Phone: [facility] Start: 07-21-2022 Non-patient / Non-visit MD Ike Palacios Work Phone: [facility] Start: 07-20-2022 Non-patient / Non-visit MD Ike Palacios Work Phone: [facility] Start: 07-20-2022 End: 07-21-2022 Evaluation and management of inpatient [facility] Start: 07-20-2022 End: 07-21-2022 observation encounter MD Ike Palacios Work Phone: [facility] Work Phone: Start: 07-20-2022 End: 07-20-2022 Patient encounter procedure Chris Morin PROJECT SCHEDULER.BACK ORDER CLERK Work Phone: [facility] Comment on above: Confusion (Primary [...] Author Start: 07-07-2023 Influenza vaccination INFLUENZA (#1) [facility] Start: 03-13-2023 Patient discharge [facility] Start: 03-11-2023 Following clinical pathway protocol [facility] Start: 03-11-2023 Assessment of risk o f venous thromboembolism [facility] Start: 03-11-2023 Cardiac monitoring [facility] Start: 03-11-2023 Catheterization of vein [facility] Start: 03-11-2023 Elevation of head of bed [facility] Start: 03-11-2023 Exercises [facility] Start: 03-11-[address] anned interventions [facility] Start: 03-11-2023 Insertion of cathete r into peripheral vein [facility] Start: 03-11-2023 Measuring intake and output [facility] Start: 03-11-2023 Notification of physician [facility] Start: 03-11-2023 Oxygen therapy [facility] Start: 03-11-2023 Patient referral to dietitian [facility] Start: 03-11-2023 Providing care accor ding to standard [facility] Start: 03-11-2023 Provision of activit y privileges [facility] Start: 03-11-2023 Referral to occupati onal therapist [facility] Start: 03-11-2023 Referral to service [facility] Start: 03-11-2023 Tobacco use cessatio n education [facility] Start: 03-11-2023 [facility] Start: 03-11-2023 Troponin I measurement [facility] Start: 03-11-2023 Urinalysis complete panel - Urine [facility] Start: 03-11-2023 Admission procedure [facility] Start: 03-11-2023 Oxygen therapy [facility] Start: 03-11-2023 [facility] Start: 01-25-2023 End: 03-27-2023 Nuclear Ab [Presence] in Serum by Immunoassay [facility] Work Phone: Comment on above: Expected: 01/25/2023 , Expires: 03/27/2023 Start: 01-25-2023 End: 03-27-2023 Rheumatoid factor [Units/volume] in Serum or Plasma [facility] Work Phone: Comment on above: Expected: 01/25/2023 , Expires: 03/27/2023 Start: 01-14-2023 Verification routine [facility] Start: 01-14-2023 Patient discharge [facility] Start: 01-14-2023 Application of intermittent pneumatic compression device [facility] Start: 01-13-2023 Following clinical pathway protocol [facility] Start: 01-13-2023 Assessment of risk o f venous thromboembolism [facility] Start: 01-13-2023 Cardiac monitoring [facility] Start: 01-13-2023 Catheterization of vein [facility] Start: 01-13-2023 Continuous pulse oximetry [facility] Start: 01-13-2023 Elevation of head of bed [facility] Start: 01-13-2023 Exercises [facility] Start: 01-13-[address] anned interventions [facility] Start: 01-13-2023 Insertion of cathete r into peripheral vein [facility] Start: 01-13-2023 Measuring intake and output [facility] Start: 01-13-2023 Notification of physician [facility] Start: 01-13-2023 Oxygen therapy [facility] Start: 01-13-2023 Providing care accor ding to standard [facility] Start: 01-13-2023 Provision of activit y privileges [facility] Start: 01-13-2023 Referral to occupati onal therapist [facility] Start: 01-13-2023 Referral to service [facility] Start: 01-13-2023 Speech therapy assessment [facility] Start: 01-13-2023 Tobacco use cessatio n education [facility] Start: 01-13-2023 [facility] Start: 01-13-2023 Admission procedure [facility] Start: 11-06-2022 ADVANCE DIRECTIVE DISCUSSION ADVANCE DIRECTIVE DISCUSSION [facility] Start: 11-06-2022 DEPRESSION ASSESSMENT DEPRESSION ASS ESSMENT [facility] Start: 07-21-2022 Patient discharge [facility] Work Phone: Start: 07-21-2022 Blood chemistry [facility] Work Phone: Start: 07-20-2022 Referral to vascular surgeon [facility] Work Phone: Start: 07-20-2022 Following clinical pathway protocol [facility] Work Phone: Start: 07-20-2022 Ambulation without limitation [facility] Work Phone: Start: 07-20-2022 Assessment of risk o f venous thromboembolism [facility] Work Phone: Start: 07-20-2022 Catheterization of vein [facility] Work Phone: Start: 07-20-2022 Insertion of cathete r into peripheral vein [facility] Work Phone: Start: 07-20-2022 Measuring intake and output [facility] Work Phone: Start: 07-20-2022 Providing care accor ding to standard [facility] Work Phone: Start: 07-20-2022 Referral to occupati onal therapist [facility] Work Phone: Start: 07-20-2022 Referral to service [facility] Work Phone: Start: 07-20-2022 Speech therapy assessment [facility] Work Phone: Start: 07-20-2022 [facility] Work Phone: Start: 07-20-2022 Magnetic resonance angiography of head without contrast MRA Head ONLY without Contrast [facility] Work Phone: Start: 07-20-2022 MRI of brain without contrast Brain without Contrast [facility] Work Phone: Start: 07-20-2022 MRI of neck vessels with contrast MRA Neck WITH and W/O Contrast [facility] Work Phone: Start: 07-20-2022 Verification routine Wo justice [facility] Work Phone: Start: 07-20-2022 Admission procedure Starr ster [facility] Work Phone: Start: 07-20-2022 Patient referral to dietitian [facility] Work Phone: Start: 07-07-2022 Influenza vaccination INFLUENZA (#1) [facility] Start: 03-05-2022 COVID-19 VACCINE (3 - Booster for Susan series) COVID-19 VACCINE (3 - Booster for Susan series) [facility] Start: 12-30-2021 COVID-19 VACCINE (4 - Booster for Susan series) COVID-19 VACCINE (4 - Booster for Susan series) [facility] Start: 11-06-2021 ADVANCE DIRECTIVE DISCUSSION ADVANCE DIRECTIVE DISCUSSION [facility] Start: 05-06-2019 Urine microalbumin profile DTAP,TDAP,TD (3 - Td or Tdap) [facility] Start: 10-15-2013 DIABETES SCREEN DIABETES SCREEN [facility] Start: 2010 PNEUMOCOCCAL: 65+ (1 - PCV) PNEUMOCOCCAL: 65+ (1 - PCV) [facility] Start: 1995 SHINGRIX VACCINE (1 of 2) SUMMERS GRIX VACCINE (1 of 2) [facility] Start: 1963 HEPATITIS C SCREENING HEPATITIS C DC ARJUN [facility] Start: 1957 Adult depression screening assessment DEPRESSION SCREENING [facility] Anion gap measurement [facility] Work Phone: BUN/Creatinine ratio [facility] Work Phone: Calcium [Mass/volume ] in Serum or Plasma [facility] Work Phone: Carbon dioxide, tota l [Moles/volume] in Serum or Plasma [facility] Work Phone: Chloride [Moles/volu me] in Serum or Plasma [facility] Work Phone: Creatinine [Moles/vo lume] in Serum or Plasma [facility] Work Phone: End: 01-26-2024 EPIL EEG ROUTINE EPIL EEG ROUTINE NEUROLOGY Routine Arterial ischemic stroke, MCA (middle cerebral artery), left, acute (HCC) 1 Occurrences starting 01/25/2023 until 01/26/2024 [facility] Work Phone: Comment on above: 1 Occurrences starti ng 01/25/2023 until 01/26/2024 Glucose [Mass/volume ] in Serum or Plasma [facility] Work Phone: Measurement of renal function [facility] Work Phone: OT PLAN OF CARE CERTIFICATION OT PLAN OF CARE CERTIFICATION Procedures Routine 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) Ordered: 02/16/2023 [facility] Work Phone: Comment on above: Ordered: 02/16/2023 Patient Education TIA Dc [facility] Work Phone: Patient referral [facility] Work Phone: Potassium [Moles/vol ume] in Serum or Plasma [facility] Work Phone: Sodium [Moles/volume ] in Serum or Plasma [facility] Work Phone: Urea nitrogen [Mass/volume] in Serum or Plasma [facility] Work Phone: [facility] Immunizations Immunization Date Immunization Notes Care Provider Pato raymond 08-06-2022 influenza, injectabl e, quadrivalent, preservative free [facility] 08-06-2022 influenza, seasonal, injectable Dr. Amisha Torrez Work Phone: [facility] 11-06-2020 Jessica (Cam [employer] Cam) MD Ike Palacios Work Phone: [facility] 12-07-2017 influenza, high dose seasonal, preservative-free Chris Morin PROJECT SCHEDULER.BACK ORDER CLERK Work Phone: [facility] 08-20-2010 influenza virus vaccine, unspecified formulation Chris Morin PROJECT SCHEDULER.BACK ORDER CLERK Work Phone: [facility] Work Phone: 05-06-2009 diphtheria and tetan us toxoids, adsorbed for pediatric use Chris Morin PROJECT SCHEDULER.BACK ORDER CLERK Work Phone: [facility] Work Phone: 09-19-2008 tetanus toxoid, reduced diphtheria toxoid, and acellular pertussis vaccine, adsorbed Chris Morin PROJECT SCHEDULER.BACK ORDER CLERK Work Phone: [facility] Work Phone: Payers Date Payer Category Payer Self-pay [id number] 2021 Private Health Insurance [id number] 2021 Private Health Insurance [employer] [place] [employer] [id number] 2021-Present [phone] [address] [place] [address] Indemnity [id number] 2011 Private Health Insurance AVNI [id number] 2010 Medicare [id number] 2010 Medicare MEDICARE MEDICAR E A AND B [id number] 2010-Present [phone] [address] [address] [place] [address] Medicare [id number] Unknown [id number] Unknown [id number] Unknown [id number] Unknown [id number] Social History Date Type Detail Facility Start: 07-20-2022 End: 10-25-2023 Tobacco smoking status NHIS Unknown if ever smoked [facility] Start: 02-24-2019 None [facility] Start: 02-24-2019 Alone [facility] Start: 03-11-2019 Cigarettes [facility] Start: 1945 Sex Assigned At Female C [facility] Start: 10-15-2010 Tobacco smoking stat us NHIS Never smoked tobacco [facility] Work Phone: History of tobacco use Cigarette Smoker C [facility] Work Phone: Start: 10-15-2010 End: 06-26-2023 Cigarettes smoked current (pack per day) - Reported 0.1 [facility] History of tobacco use Passive smoker [facility] Work Phone: Start: 07-20-2022 End: 01-25-2023 Alcohol intake Current drinker of alcohol (finding) [facility] Start: 05-21-2007 History SDOH Alcohol Comment social [facility] Start: 10-15-2010 Tobacco Comment 10/ wk [facility] Start: 07-10-2022 End: 07-20-2022 Exposure to SARS-CoV-2 (event) Not sure [facility] Start: 01-25-2023 End: 06-26-2023 Tobacco use panel [facility] National Score (1-10 0), lower number is lower risk 66 [facility] Start: 09-20-2021 Gender identity Identifies as female gender (finding) [facility] Goals Date Patient Goal Desired Activity /State Functional Status Date Assessment Result Facility 03-13-2023 Functional status Activity Abili ty Standby Assist [facility] Work Phone: 03-12-2023 Functional status Ambulates [facility] Work Phone: 01-14-2023 Functional status Ambulates [facility] Work Phone: 07-21-2022 Functional status Activity Ability Indepe ndent [facility] Work Phone: 07-21-2022 Functional status Patient Activi ty Ambulates;Up ad behzad [facility] Work Phone: Mental Status Date Assessment Result Facility 03-13-2023 Cognitive function Voice/Name [facility] Work Phone: 03-11-2023 Cognitive function Voice/Name [facility] Work Phone: 01-14-2023 Cognitive function Voice/Name [facility] Work Phone: 07-21-2022 Cognitive function Voice/Name [facility] Work Phone: 07-20-2022 Cognitive function Voice/Name [facility] Work Phone: Clinical Notes 07-20-2022 to 07-20-2023 Note Date & Type Note Facility 07-20-2023 Note HNO ID: [id number] Author: La Newberry MD Service: ? Author Type: Physician Type: Progress Notes Filed: 08/14/2023 8:21 PM Note Text: [facility] Initial Visit Consultation is requested by: Consultation requested by Dr. Obando for an opinion regarding white matter disease. My final recommendations will be communicated back to the requesting physician by way of shared medical record or letter via [place] mail PCP: Alonso Obando [address] [place] [address] [place] [address] CEREBROVASCULAR HISTORY Sheela Tadeo is a 77 [...] part of the assessment. - Face, Velvet, Mosque, Marlen, Red Attention: - Repeat in forward [...] = 1 point 3/3 Language: - Repeat: "I only know that Rogelio is the one to help today" 11/06 - Repeat: "The cat always hid under the couch when the dogs were in the Room" 11/06 - Number of words that begin with F. (1 point for >/= to 11 words) 11/06 Abstraction: - Similarity between train and bicycle 11/06 - Similarity between watch and ruler 11/06 Delayed Recall - Words - Face 11/06 - Velvet 11/06 - Mosque - Marlen 0/1 - Red 11/06 Orientation - Date 0 - Month 11/06 - Year 11/06 - [...] TAB) Take one (more content not included)... [facility] 03-13-2023 Discharge summary Note Date/Time March 13, 2023 10:52a m [facility] Medical Records Department [address] [place] [address] Instructions for Home/Discharge Instructions 03/13/23 1050 MR#: [id number] Acct: [id number] Name: SHEELA TADEO Rep #:[id number] : [...] DO; Dr. Amisha Torrez MD ~ Signed [facility] Work Phone: 1(962) 123-334205-07-[address] Farr [facility] March 12, 2023 8:58am Note Date/Time March 12, 2023 7:35am [facility] Medical Records Department [address] [place] [address] Progress Note - Hospitalist 03/12/23 0732 MR#: [id number] Acct: [id number] Name: SHEELA TADEO Rep #:[id number] : 1945 77 From: Kenny Farr MD PCP: Dr. Amisha Torrez MD Status:ADM IN Location: [place] [address] Reason for Visit Reason for Visit: Diagnoses [...] % (Auto) 61.7, Lymph % (Auto) 27.8, Alcorn% (Auto) 8.1, Eos % (Auto) 1.6, Baso [...] Clarity Clear, Urine pH 6.5, Ur Specific [place] 1.015, Urine Protein 15 H, Urine Glucose [...] documentation, 40Minutes Charges/Coding Visit Charges Inpatient E&M: 85509 Subs Hosp L2 03/12/23 0858 <Electronically signed by Kenny Farr MD> Cosigner Signature (if applicable): CC: ~ Signed [facility] Work Phone: 1(676) 760-627105-06-[address] Azevedo [facility] March 11, 2023 9:13pm Note Date/Time March 11, 2023 6:00pm [facility] Medical Records Department [address] [place] [address] Emergency Department Summary 03/11/23 MR#: [id number] Acct: [id number] Name: SHEELA TADEO Rep #:[id number] : 1945 77 From: Rafat Azevedo MD PCP: Dr. Amisha Torrez MD Status:ADM IN Location: [place] [address] HPI History of Present Illness Chief Complaint: Neuro S/Sx Informant: patient and family Narrative Narrative: History is per patient but more per her son who is with her when the events happened and is present now. This patient presents with strokelike symptoms. She denied prior stroke but hersons and [id number] states that she has had mini strokes [...] These were out of character for her. [facility] Medical History HTN (hypertension) Macular [...] % (Auto) 61.7 Lymph % (Auto) 27.8 Alcorn % (Auto) 8.1 Eos % (Auto) 1.6 [...] (Auto) Neut % (Auto) Lymph % (Auto) [place]corn % (Auto) Eos % (Auto) Baso % [...] blood pressure Disposition Disposition: [facility] Care [facility] Discharge Date/Time: 03/11/23 20:19 What to do if you have Problems For any increased pain, shortness of breath, bleeding, nausea or vomiting, chestpain, or any unexpected problems, contact your Primary Care Provider. Call [facility] ([phone]) or report to the closest Emergency Room. [...] or depression. Minimal baseline variation. No ectopy. [place] interval, QRS duration and QTc normal 03/11/232112<Electronically signed by Rafat Azevedo MD> Cosigner Signature (if applicable): cc: Dr. Amisha Torrez MD ~* Signed [facility] Work Phone: 1(804) 142-478005-06-2023 History and physical note Author Dr. Naranjo [facility] March 11, 2023 8:19pm Note Date/Time March 11, 2023 8:19pm [facility] Medical Records Department [address] [place] [address] H&P Exam - Hospitalist 03/11/232009 MR#: [id number] Acct: [id number] Name: SHEELA TADEO Rep #:[id number] : 1945 77 From: Hai Naranjo DO PCP: Dr. Amisha Torrez MD Status:ADM IN Location: [facility] [id number] HPI - General General Date of [...] put the proper way. They were in [place] for the game when he came back, [...] children read in a car with her. [facility] Medical History HTN (hypertension) Macular degeneration [...] and oriented to place Coordination / Balance: hqxdzi-[id number] test normal and wjlw-nq-yevf test normal Speech: speech normal Psych affect [...] % (Auto) 61.7, Lymph % (Auto) 27.8, Alcorn% (Auto) 8.1, Eos % (Auto) 1.6, Baso [...] molecular heparin. Charges/Coding Visit Charges Inpatient E&M: 39839 Init Hosp L3 03/11/232018 <Electronically signed by Hai Naranjo DO> Cosigner Signature (if applicable): CC: Dr. Hai Naranjo DO; Dr. Amisha Torrez MD~ Signed [facility] Work Phone: 1(447) 863-469204-25-2023 NoteHNO ID: [id number] Author: Ken Gabriel OTR/Garrett Service: ? 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 Billing: Drivers Follow Up per 60 min (57909): 1:1 time 60 min Total time: 60 minutes DAMARIS Ramírez, CDI/PD Procurement Officer [facility] History of Present illness Narrative* DAMARIS [...] does favor the left side of her johnathan of travel but did not cross the [...] for jhonathan changes and turns. ASSESSMENT: Sheela Tadeo tolerated today's treatment visit well. PLAN: D/C OT at this time. 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 Billing: Drivers Follow Up per 60 min (43170): 1:1 time 60 min Total time: 60 minutes DAMARIS Ramírez, CDI/PD Procurement Officer Chief Wharfinger [facility] Miscellaneous Notes* Telephone Encounter - Neelam [...] Carlyle, 1945). Yes Number to return call [phone] Reason for Call: [facility] Center is calling to assist patient with Sooner appointment with Dr. Newberry. He states patient is being referred to Dr. Newberry by Dr. Chiquis Haider. 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 Patient has complex vascular issue. Patient currently schedule 05/15. Please advise whether patient can be scheduled in a new slot for possible sooner appointment. Please review and advise Neelam Jeronimo. Thanks. Thank you calling [facility] [place]. You will receive a return call within 48hours ( or 2 business days if close to the weekend). If you feel that this is an urgent issue and needs immediate attention, it is recommended that you contact your primary care provider office or proceed to your nearest Urgent Care Center of Emergency Room ED for evaluation/treatment. [facility]23 Miscellaneous Notes* Addendum Note - DAMARIS Ramírez - 02/16/2023 1:51 PM EDTAddended by: KEN GABRIEL on: 02/16/2023 01:51 PM Modules accepted: Orders documented in this encounterSam[facility]04-12-2023 NoteHNO ID: [id number] Author: DAMARIS Ramírez Service: ? Author Type: [...] 4 days/week. She currently owns a 2017 Verimed 4 door SUV with automatic transmission. State: [place] License/Permit #: [id number] Expires: 2026 Restrictions: Right out rear view [...] Driving: Right UE: Sufficient Left UE: Sufficient Waste Water Operator: Sufficient Right LE: Sufficient Left LE: [...] adequate lighting i (more content not included)... [facility] History of Present illness Narrative* GRACIELA Ramírez/Garrett - 02/15/2023 10:00 AM EDT Episode Visit [...] of 4 days/week. She currently owns a [employer] 4 door [employer]r with automatic transmission. State: [place] License/Permit #: [id number] Expires: 2026 Restrictions: Right out rear view [...] Driving: Right UE: Sufficient Left UE: Sufficient Waste Water Operator: Sufficient Right LE: Sufficient Left LE: [...] Severe impairment [email or web address] Immediate Recall: WNL @ 6 digits Visual Scanning/Attention: [place] Making Part A (sec): 58 sec [place] Making Part B (sec): 207 sec 50[address] [...] Compatible with Driving and adequate with IADLs Dairy Procurement Officer Simulator: Simple Brake Reaction Time: Average Distance: [...] Education/Teach Back: States/Identifies, Return Demonstration TREATMENT: Evaluation Self-Mcfp Management: 1: Educated on safety throughout the [...] 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 The above goals and plan of care were discussed and agreed upon by patient/family. Billing: Evaluation - Moderate Complexity (59233) Self Care / Home Management (53869): 1:1 time: 30 minutes (2 units: 23-37 mins) Community /Work Re-integration (18160): 1:1 time: 45 minutes (3 units: 38-52 mins) Total time: 105 minutes DAMARIS Ramírez, CDI/PD Procurement Officer Chief Wharfinger documented in this encounterSam[facility]itan Hospital03-23-2023 NoteHNO ID: [id number] Author: Chiquis Haider MD Service: ? Author Type: Physician Type: Progress Notes Filed: 01/26/2023 11:41 AM Note Text: MRIMRA of brain was reviewed with the neuro-radiologist at [facility]: severe bilateral white matter disease. No micro-bleeds. MRA of brain and neck are [facility] History of Present illness Narrative* Chiquis Haider MD - 01/26/2023 11:40 AM EDT MRIMRA of brain was reviewed with the neuro-radiologist at [facility]: severe bilateral white matter disease. No micro-bleeds. MRA of brain and neck are normal * Chiquis Haider MD - 01/25/2023 11:00 AM EDT [facility] Initial Visit Consultation is requested by: SELF PCP: Alonso Obando [address] [place] [address] [place] [address] CEREBROVASCULAR HISTORY Sheela Tadeo is a 77 [...] Adult) Pulse 90 Ht 162.6 cm (5' 4") Wt 45.4 kg (100 lb) BMI 17.16 [...] vibration. Coordination: Rapid alternating movements symmetric bilaterally. Jspecg-ve-lsxd, bmlj-hz-edro without dysmetria bilaterally. Gait: Narrow-based, normal spaced and stable without assistance. Tandem gait is stable. LABS Cholesterol: No results found for: CHOL LDL Chol, [place] (mg/dL) Date Value 10/15/2010 104 No results [...] Continue BP medications Follow up with the [facility] for control of hypertension Advised compliance [...] which included preparing to see the patient, qtmw-ha-agmf patient care, completing clinical documentation, obtaining and/or reviewing separately obtained history, performing a medically appropriate examination, counseling and educating the patient/family/caregiver, ordering medications, tests, or procedures, independently interpreting results (not separately reported), and communicating results to the patient/family/caregiver SIGNATURE Chiquis Haider MD CC SELF Alonso Obando [address] [place] [address] [place] [address] documented in this encounterSamaritan Hospital03-22-2023 NoteHNO ID: [id number] Author: Chiquis Haider MD Service: ? Author Type: Physician Type: Progress Notes Filed: 07/07/2023 9:46 AM Note Text: [facility] Initial Visit Consultation is requested by: SELF PCP: Alonso Obando [address] [place] [address] [place] [address] CEREBROVASCULAR HISTORY Sheela Tadeo is a 77 [...] Adult) Pulse 90 Ht 162.6 cm (5' 4") Wt 45.4 kg (100 lb) BMI 17.16 [...] vibration. Coordination: Rapid alternating movements symmetric bilaterally. Zwjwna-wk-kstq, yuua-of-cnsw without dysmetria bilaterally. Gait: Narrow-based, normal spaced and stable without assistance. Tandem gait is stable. LABS Cholesterol: No results found for: CHOL LDL Chol, [place] (mg/dL) Date Value 10/15/2010 104 No results [...] - Not at al (more content not included)...[facility]03-10-[address] Munguia [facility] January 13, 2023 6:27pm Note Date/Time January 13, 2023 5:0 1pm [facility] Medical Records Department [address] [place] [address] Emergency Department Summary 01/13/23 MR#: [id number] Acct: [id number] Name: SHEELA TADEO Amilcar Rep #:[id number] : 1945 77 From: Constantino Munguia MD PCP: Dr. Amisha Torrez MD Status:ADM ELLA Location: [place] [address] HPI History of Present Illness Chief Complaint: [...] intact bilaterally and no sensory deficits noted [place] Coma Scale: document GCS findings Spontaneous Obeys [...] Chris Torres MD at 17:56 EST , EKG Initial EKG: Attestation: I personally reviewed and interpreted this EKG as follows: Interpretation: Sinus Rhythm (Heart rate is 96. There are premature atrial complexes. There is artifact which the computer is reading ST and T waveabnormality. [place] interval is 144 ms. Cures duration 80 ms. QT duration 336 ms. [place] is normal.) and No Acute Injury Pattern Management Discussion w/another healthcare provider: Hospitalist Discharge Plan Triage Chief Complaint: Neuro S/Sx ED Provider: Constantino Munguia Dx/Rx/DC Orders Primary Care Provider: Amisha Torrez What to do if you have Problems For any increased pain, shortness of breath, bleeding, nausea or vomiting, chestpain, or any unexpected problems, contact your Primary Care Provider. Call [facility] ([phone]) or report to the closest Emergency Room. Call 911 if necessary. 01/13/231826 <Electronically signed by Constantino Munguia MD> Cosigner Signature (if applicable): CC: Dr. Amisha Torrez MD ~ Signed [facility] Work Phone: 1(871) 924-475203-10-2023 History and physical note Author [facility] January 14, 2023 2:33pm Note Date/Time January 13, 2023 5:5 6pm [facility] Medical Records Department [address] [place] [address] H&P Exam - Hospitalist 01/13/23 1753 MR#: [id number] Acct: [id number] Name: CARLYLEHEATHERSHEELA Amilcar Rep #:[id number] : 1945 77 From: Quin Ruffin MD PCP: Dr. Amisha Torrez MD Status:ADM ELLA Location: [place] [address] HPI - General General Date of Admission: 01/13/23 Date of Service: 01/13/23 Chief Complaint: neuro symptoms HPI Narrative SHEELA TADEO is a 77 Fwith a PMH as outlined who presents via the ED [...] for expressive aphasia concerning for acute CVA. [facility] Medical History HTN (hypertension) Macular degeneration [...] * Her last known well was on March 5. Patient lives alone and her children checked [...] Patient and her son and daughter in [facility] counseled extensively about different types of CODE STATUS including full code, DNR CCA and DNR CCA. Patient couldnt decide about her code status and wanted more time to think about it. She did understand that in light of her not having made a decision, her default code status would be full code. * Total ipmb-ot-joqh time 17 minutes. Total time spent on evaluation and management of patient, reviewing chart and specialist notes, discussing plan with patient, her son and daughter in law, discussion with nursing and ancillary staff as well as documentation in EMR: 58 mins Charges/Coding Visit Charges Inpatient E&M: 77344 Init Hosp L2 Procedures Hospitalists Procedures: 49972 Advncd Care Plan 30 Min 01/14/23 1433 <Electronically signed by Quin Ruffin MD> Cosigner Signature (if applicable): CC: Dr. Amisha Torrez MD; Dr. Quin Ruffin MD~ Signed [facility] Work Phone: 1(843) 690-279609-14-2022 History of Present illness Narrative* Chris Morin APRN.BACK ORDER CLERK - 07/20/2022 12:45 PM EDT Nontoxic-appearing female [...] plan of care. Will accompany patient to [facility]. Chris Morin APRN.CNP documented in this encounter[facility] summary Author Dr. Ruffin [place] [facility] January 14, 2023 2:20pm Note Date/Time January 14, 2023 2:0 8pm [facility] Medical Records Department [address] [place] [address] Discharge Summary 01/14/23 1404 MR#: [id number] Acct: [id number] Name: SHEELA TADEO Rep #:[id number] : 1945 77 From: Quin Ruffin MD PCP: Dr. Amisha Torrez MD Status:ADM ELLA Location: [place] [address] Providers Date of Admission: 01/13/23 Date of [...] 74.7 H, Lymph % (Auto) 17.2 L, [place] % (Auto) 6.4, Eos % (Auto) 0.6, [...] Sens 23 01/13/23 18:24: POC Glucose 96 03/11/23 05:20: WBC 5.6, RBC 4.18 L, Hgb 13.3, Hct 41.7, MCV 99.8 H, MCH 31.8, MCHC 31.9 L, RDW Std Deviation 51.5 H, RDW Coeff of [place] 14.1, Plt Count 302, MPV9.0, Immature Gran % (Auto) 0.400, Neut % (Auto) 44.7 L, Lymph % (Auto) 40.4, [place] % (Auto) 8.7, Eos % (Auto) 4.6, [...] 17:54 EST Reading Location ID and State: 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 No acute bleed. If concern for acute infarct MRI recommended N.B. : The above Results were Read Back by Chris Torres MD to Constantino Mnuguia MD, and understanding confirmed on 01/13/2023 17:43:39 [...] Physician: Amisha Torrez Performed By: Alyssa Cool, CARIE, RVT Brain MRI 01/14/23 09:50 IMPRESSION: 1. [...] Self Care Charges/Coding Visit Charges Inpatient E&M: 10043 Disch Hosp >30min 01/14/23 1420 <Electronically signed by Quin Ruffin MD> Cosigner Signature (if applicable): CC: Dr. Amisha Torrez MD; Dr. Quin Ruffin MD~ Signed [facility] Work Phone: evaluation note* Diagnosis Onset Date Resolution Status Confusion acute Smoker acute TIA (transient ischemic attack) acute HTN (hypertension) chronic [facility] Work Phone: Evaluation note* Diagnosis Confusion- Primary Unspecified psychosis documented in this encounter [facility] note* Diagnosis Onset Date Resolution Status Confusion resolved [facility] Work Phone: Evaluation note* Diagnosis Onset Date Resolution Status Stroke-like symptoms resolve d [facility] Work Phone: Evaluation note* Diagnosis Elevated blood pressure reading without diagnosis of hypertension [R03.0 (ICD-10-CM)]- Primary Elevated blood pressure reading without diagnosis of hypertension 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) Cerebral thrombosis with cerebral infarction Arterial ischemic stroke, MCA (middle cerebral artery), left, acute (HCC) Unspecified cerebral artery occlusion with cerebral infarction documented in this encounter [facility] note* Diagnosis 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)- Primary Cerebral thrombosis with cerebral infarction [facility] Diagnosis 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)- Primary Cerebral thrombosis with cerebral infarction [facility]* Diagnosis Onset Date Resolution Status Stroke-like symptoms resolve d Confusion acute [facility] Work Phone: Evaluation note* Diagnosis Onset Date Resolution Status Stroke-like symptoms resolve d Confusion acute History of high blood pressure acute TIA on medication acute Transient confusion acute [facility] Work Phone: Evaluation noteNo assessment information available [facility] Work Phone: History and physical note Author Dr. Naranjo [facility] March 11, 2023 8:19pm Note Date/Time March 11, 2023 8:19pm [facility] Medical Records Department [address] [place] [address] H&P Exam - Hospitalist 03/11/232009 MR#: [id number] Acct: [id number] Name: SHEELA TADEO Rep #:[id number] : 1945 77 From: Hai Naranjo DO PCP: Dr. Amisha Torrez MD Status:ADM IN Location: [place] [id number]- 1 HPI - General General Date of [...] put the proper way. They were in [place] for the game when he came back, [...] children read in a car with her. [facility] Medical History HTN (hypertension) Macular degeneration [...] and oriented to place Coordination / Balance: pavcht-ga-rbxc test normal and doqx-ra-tuhr test normal Speech: speech normal Psych affect [...] % (Auto) 61.7, Lymph % (Auto) 27.8, [place]% (Auto) 8.1, Eos % (Auto) 1.6, Baso [...] above Results were Read Back by Mickey Joes (Brooks) to Rafat Azevedo MD, and understanding [...] molecular heparin. Charges/Coding Visit Charges Inpatient E&M: 49595 Init Hosp L3 03/11/232018 <Electronically signed by Hai Naranjo DO> Cosigner Signature (if applicable): CC: Dr. Hai Naranjo DO; Dr. Amisha Torrez MD~ Signed [facility] Work Phone: Chief Complaint and Reason [...] Yes July 20, 2022 1:07pm Power of Foil Cutter Yes July 1:07pm Name of Medical Power of Foil Cutter Michelle July 20, 2022 1:07pm Advance Directive Response Recorded Date/ Time Name of Medical Power of Foil Cutter Michelle Tadeo July 20, 2022 4:15pm Living Will Yes July 20, 2022 4:15pm Power of Foil Cutter Yes July 4:15pm Advance Directive Response Recorded Date/ Time Name of Medical Power of Foil Cutter Michelle Tadeo July 20, 2022 3:15pm Living Will Yes July 20, 2022 3:15pm Power of Foil Cutter Yes July 3:15pm Advance Directive Response Recorded Date/ Time Name of Medical Power of Foil Cutter Michelle Deleon January 13, 2023 6:55pm Living Will Yes January 13, 2023 6:55pm Power of Foil Cutter Yes January 13 6:55pm Advance Directive Response Recorded Date/ Time Name of Medical Power of Foil Cutter Michelle Deleon January 13, 2023 7:55pm Name of Medical Power of Foil Cutter michelle tadeo/ daughter March 11, 2023 5:51pm Living Will Yes March 11, 2023 5: 51pm Power of Foil Cutter Yes March 11, 2023 5:51pm Advance Directive Response Recorded Date/ Time Name of Medical Power of Foil Cutter Michelle Deleon January 13, 2023 7:55pm Name of Medical Power of Foil Cutter michelle tadeo/ daughter March 11, 2023 8:26pm Living Will Yes March 11, 2023 8: 26pm Power of Foil Cutter Yes March 11, 2023 8:26pm Advance Directive Response Recorded Date/ Time Living Will Yes March 11, 2023 8: 26pm Power of Foil Cutter Yes March 11, 2023 8:26pm Advance Directive Response Recorded Date/ Time Living Will Yes March 11, 2023 7: 26pm Power of Foil Cutter Yes March 11, 2023 7:26pm Reason for Referral Specialty Diagnoses / Procedures Referred By Trina griffiths Referred To Contact [facility] Diagnoses 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) Procedures CONSULT TO SALES REPRESENTATIVE FACILITY SERVICES OCCUPATIONAL THERAPY [facility] 60 MINS Chiquis Haider MD [address] [place] [address] [facility] [place] [address] [place] [address] Referral ID Status Reason Start Date Expiration Date Visits Requested Visits Authorized [id number] Authorized PCP Requested Referral Auto-Generate d Referral 01/25/2023 01/25/2024 99 99 Specialty Diagnoses / Procedures Referred By Trina griffiths Referred To Contact Neurology Diagnoses 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) Procedures CONSULT TO NEUROLOGY OFFICE/OUTPATIENT [facility] 60-74 MINUTES Chiquis Haider MD [address] [place] [address] La Newberry MD [address] [address] Referral ID Status Reason Start Date Expiration Date Visits Requested Visits Authorized [id number] Authorized PCP Requested Referral 01/25/2023 01/25/2024 1 1 Specialty Diagnoses / Procedures Referred By Contac t Referred To Contact [facility] Diagnoses Arterial ischemic stroke, MCA (middle cerebral artery), left, acute (HCC) Procedures EPIL EEG ROUTINE ELECTROENCEPHALOGRAM REC COMA/SLEEP ONLY Chiquis Haider MD [facility] [place] [address] [place] [address] Referral ID Status Reason Start Date Expiration Date Visits Requested Visits Authorized [id number] Authorized Auto-Generat ed Referral 01/25/2023 01/26/2024 1 1 Specialty Diagnoses / Procedures Referred By Contac t Referred To Contact [facility] Diagnoses 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) Procedures OT REHAB FOLLOW UP ORDER THERAPEUT ACTVITY DIRECT PT CONTACT EACH 15 [address] Ot [address] [address] [facility] [place] [address] Referral ID Status Reason Start Date Expiration Date Visits Requested Visits Authorized [id number] Pending Review PCP Requested Referral Auto-Generate d [...] or prosecute any alcohol or drug abuse patient.[facility] HospitalIn the event this information is protected by the Federal Confidentiality of Alcohol and Drug Abuse Patient Records regulations: The Federal rules restrict any use of the information to criminally investigate or prosecute any alcohol or drug abuse patient.[facility] HospitalIn the event this information is protected by the Federal Confidentiality of Alcohol and Drug Abuse Patient Records regulations: The Federal rules restrict any use of the information to criminally investigate or prosecute any alcohol or drug abuse patient.[facility] HospitalIn the event this information is protected by the Federal Confidentiality of Alcohol and Drug Abuse Patient Records regulations: The Federal rules restrict any use of the information to criminally investigate or prosecute any alcohol or drug abuse patient.[facility] HospitalIn the event this information is protected by the Federal Confidentiality of Alcohol and Drug Abuse Patient Records regulations: The Federal rules restrict any use of the information to criminally investigate or prosecute any alcohol or drug abuse patient.[facility] HospitalIn the event this information is protected by the Federal Confidentiality of Alcohol and Drug Abuse Patient Records regulations: The Federal rules restrict any use of the information to criminally investigate or prosecute any alcohol or drug abuse patient.[facility] Care Teams (unrecognized sec tion and content) Research Kennel Supervisor Relationship Specialty Start Date End Date Aolnso Obando MD [address] [place] [address] PCP - General Family Practice 10/15/10 Team Status: Active Member Role Status Dates Dr. Chris Obando MD Family Provider Active Dr. Amisha Torrez MD Primary Care Provider Active Team Status: Inactive Member Role Status Dates Dr. Amisha Torrez MD Primary Care Provider, Referrin g Provider Active Maeve FISHER PA Attending Provider Active Team Status: Active Member [...] MD Admit Provider, Attending Prov ider Active Research Kennel Supervisor Relationship Specialty Start Date End Date Alonso Obando MD [address] [place] [address] PCP - General Family Medicine 10/15/10 Research Kennel Supervisor Relationship Specialty Start Date End Date Alonso Obando MD [address] [place] [address] PCP - General Family Medicine 10/15/10 Research Kennel Supervisor Relationship Specialty Start Date End Date Alonso Obando MD [address] [place] [address] PCP - General Family Medicine 10/15/10 Team [...] Dr. Kenny Farr MD Other Provider Active Research Kennel Supervisor Relationship Specialty Start Date End Date Alonso Obando MD [address] [place], [place] [address] PCP - General Family Medicine 10/15/10 Research Kennel Supervisor Relationship Specialty Start Date End Date Alonso Obando MD [address] [place], [place] [address] PCP - General Family Medicine 10/15/10 Team [...] anterior cerebral artery (HCC) Procedures CONSULT TO SALES REPRESENTATIVE FACILITY SERVICES OCCUPATIONAL THERAPY [facility] 60 MINS Chiquis Haider MD [address] [place] [address] [facility] [address] [address] Referral ID Status Reason Start Date Expiration Date Visits Requested Visits Authorized [id number] Authorized PCP Requested Referral Auto-Generate d Referral 01/25/2023 11/05/2023 99 99 Reason Comments OT EVAL OT Discharge Specialty Diagnoses / Procedures Referred By Contac t Referred To Contact [facility] Diagnoses 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 INFORMATION SOURCE (unrecogn ized section and content) DATE CREATED AUTHOR 07/08/2023 [facility] DATE CREATED AUTHOR AUTHOR'S ORGANIZ ATION 08/16/2023 [facility] DATE CREATED AUTHOR AUTHOR'S ORGANIZ ATION 10/19/2024 [facility] FOR RECORDS PERTAINING TO PATIENTS WHO [...] BE BASED ON THE PRIMARY CLINICAL RECORDS. [employer] [facility]. provides no warranty or guarantee of the accuracy or completeness of information in this document.
[2025-10-21 07:58] LABS: Hematocrit 42.9 % (37-47); Hemoglobin 14.2 g/dL (12.0-15.0); Immature Granulocytes Count 0.030 X10^3/uL (0.0-0.0); Mean Corp Hgb Conc 33.1 g/dL (32-36); Mean Corpuscular Volume 96.6 fL (81-99); Mean Platelet Vol. 9.6 fl (6.2-12.0); NRBC Flagged by Analyzer 0 % (0-5); Platelet Count 258 K/mm3 (150-450); RBC Distribution Width CV 13.3 % (11.6-14.6); RBC Distribution Width SD 47.5 fl (35.1-43.9); Red Blood Count 4.44 M/mm3 (4.2-5.4); White Blood Count 8.2 K/mm3 (4.4-11.0)
[2025-10-21 08:14] LABS: Anion Gap 10 (5-15); BUN 19 mg/dL (4-19); BUN/Creat Ratio 23.3 RATIO (10-20); Calcium,Total 9.3 mg/dL (7.6-11.0); Carbon Dioxide 26.0 mmol/L (21.0-32.0); Chloride 106 mmol/L (98-108); Glucose 85 mg/dL (70-99); Potassium 4.1 mmol/L (3.3-5.1)
== END ==
LOC: OLS.WHLTSB 05:00
PROVIDERS: PCP Family Medicine; Visit Provider Internal Medicine
DX: E78.5 Hyperlipidemia, unspecified (principal); I12.9 Hypertensive chronic kidney disease with stage 1 through stage 4 chronic kidney disease, or unspecified chronic kidney disease; F41.9 Anxiety disorder, unspecified; N18.30 Chronic kidney disease, stage 3 unspecified
CPT/HCPCS: 36415; 80048; 85025

== ENCOUNTER → 2025-10-23 05:00 | Outpatient (REF) | payer MEDICARE, SELFPAY ==
--- OUTSIDE RECORDS SUMMARY | 2025-10-23 03:24 | XMS RPT_ITS | CCD ---
Author Organization [facility] CliniSyde Care Team Providers Care Disc Ruler Operator Name Role Phone Chyna BETANCOURT, Alonso Keenan Primary Care Provider MD [facility] Emergency Provider Dr. Amisha Torrez Primary Care Provider Dr. Vijay Juárezit Provider Dr. Vijay Juárez Other Provider Dr. Hai Doe Other Provider Donnell MASTER MOTORCYCLE TECHNICIAN, RAFAL-C Neelam Attending Provider Dr. Cresencio Villarreal Attending Provider Dr. Rene Davis Attending Provider Dr. Rene Davis Other Provider MD [facility] Provider Dr. Amisha Torrez Primary Care Provider Dr. Vijay Juárezit Provider Dr. Vijay Juárez Attending Provider Dr. Vijay Juárez Other Provider Dr. Hai Deo Other Provider Dr. Cresencio Villarreal Attending Provider [...] Primary Care Unavailable MELIZA, YOUSEF Referring Unavailable ALONOS OBANDO R Primary Care Unavailable MELIZA, YOUSEF Referring Unavailable KEN GABRIEL Attending Unavailable KEN GABRIEL Attending Unavailable ALONSO OBANDO R Primary Care Unavailable JOSEAMMAD, YOUSEF Referring Unavailable LA NEBWERRY Attending Unavailable ALONSO OBANDO R Primary Care Unavailable MOHAMMAD, YOUSEF Referring Unavailable ALONSO OBANDO Primary Care Unavailable Wyfaisal Amisha Referring Unavailable Amisha Torrez Attending Unavailable [...] Drug Class(es) Dates Sig (Normalized) Sig (Original) [id number] 200 actuat albuterol 0.09 mg/actuat metered dose [...] Absolute Lymph 1.20 X10 3/uL Normal 0.83-4.51 [facility] Comment on above: Performed By: #### L 100.0100, L500.4050, L503.0105, L500.4100, L506.1000 #### [facility] [address] [place], [place], [id number] Absolute Neut 5.8 X10 3/uL Normal 2.0-7.7 [facility] Comment on above: Performed By: #### L 100.0100, L500.4050, L503.0105, L500.4100, L506.1000 #### [facility] [address] [place], [address] Basophils/100 WBC (Bld) 0.4 % Normal 0-1 [facility] Comment on above: Performed By: #### L 100.0100, L500.4050, L503.0105, L500.4100, L506.1000 #### [facility] [address] [place], [address] Eosinophils/100 WBC (Bld) 0.8 % Normal 0-5 [facility] Comment on above: Performed By: #### L 100.0100, L500.4050, L503.0105, L500.4100, L506.1000 #### [facility] [address] [place], [address] Erythrocyte distribution width (RBC) [Ratio] 13.2 % Normal 11.6-14.6 [facility] Comment on above: Performed By: #### L 100.0100, L500.4050, L503.0105, L500.4100, L506.1000 #### [facility] [address] [place], [address] Hematocrit (Bld) [Volume fraction] 50.8 % High 37-47 [facility] Comment on above: Performed By: #### L 100.0100, L500.4050, L503.0105, L500.4100, L506.1000 #### [facility] [address] [place], [address] Hemoglobin (Bld) [Mass/Vol] 16.1 g/dL High 12.0-15.0 [facility] Comment on above: Performed By: #### L 100.0100, L500.4050, L503.0105, L500.4100, L506.1000 #### [facility] [address] [place], [address] IG% 0.300 Normal 0.0-0.9 [facility] Comment on above: Result Comment: IG% - Immature Granulocytes (promyelocytes, myelocytes and metamyelocytes) > 1% indicates that a LEFT SHIFT is Present. Performed By: #### L 100.0100, L500.4050, L503.0105, L500.4100, L506.1000 #### [facility] [address] [place], [address] Lymphocytes/100 WBC (Bld) 15.6 % Low 19-41 [facility] Comment on above: Performed By: #### L 100.0100, L500.4050, L503.0105, L500.4100, L506.1000 #### [facility] [address] [place], [address] MCH (RBC) [Entitic mass] 30.7 pg Normal 27.0-32.0 [facility] Comment on above: Performed By: #### L 100.0100, L500.4050, L503.0105, L500.4100, L506.1000 #### [facility] [address] [place], [address] MCHC (RBC) [Mass/Vol] 31.7 g/dL Low 32-36 [facility] Comment on above: Performed By: #### L 100.0100, L500.4050, L503.0105, L500.4100, L506.1000 #### [facility] [address] [place], [address] MCV (RBC) [Entitic vol] 96.8 fL Normal 81-99 [facility] Comment on above: Performed By: #### L 100.0100, L500.4050, L503.0105, L500.4100, L506.1000 #### [facility] [address] [place], [address] Monocytes/100 WBC (Bld) 8.1 % Normal 0-10 [facility] Comment on above: Performed By: #### L 100.0100, L500.4050, L503.0105, L500.4100, L506.1000 #### [facility] [address] [place], [address] Neutrophils/100 WBC (Bld) 74.8 % High 47-70 [facility] Comment on above: Performed By: #### L 100.0100, L500.4050, L503.0105, L500.4100, L506.1000 #### [facility] [address] [place], [address] Nucleated RBC (Bld) [#/Vol] 0 10*3/uL Normal 0-5 [facility] Comment on above: Performed By: #### L 100.0100, L500.4050, L503.0105, L500.4100, L506.1000 #### [facility] [address] [place], [address] Platelet mean volume (Bld) [Entitic vol] 9.8 fL Normal 6.2-12.0 [facility] Comment on above: Performed By: #### L 100.0100, L500.4050, L503.0105, L500.4100, L506.1000 #### [facility] [address] [place], [address] Platelets (Bld) [#/Vol] 232 10*3/uL Normal 150-450 [facility] Comment on above: Performed By: #### L 100.0100, L500.4050, L503.0105, L500.4100, L506.1000 #### [facility] [address] [place], [address] RBC (Bld) [#/Vol] 5.25 10*6/uL Normal 4.2-5.4 [facility] Comment on above: Performed By: #### L 100.0100, L500.4050, L503.0105, L500.4100, L506.1000 #### [facility] [address] [place], [address] RDW SD 47.0 fl High 35.1-43.9 [facility] Comment on above: Performed By: #### L 100.0100, L500.4050, L503.0105, L500.4100, L506.1000 #### [facility] [address] [place], [address] WBC (Bld) [#/Vol] 7.7 10*3/uL Normal 4.4-11.0 [facility] Comment on above: Performed By: #### L 100.0100, L500.4050, L503.0105, L500.4100, L506.1000 #### [facility] [address] [place], [address] Comprehensive Metabolic Prof [facility] 09-18-2024 Albumin [Mass/Vol] 4.2 g/dL Normal 3.2-5.0 [facility] Comment on above: Performed By: #### L 100.0100, L500.4050, L503.0105, L500.4100, L506.1000 #### [facility] [address] [place], [address] Albumin/Globulin [Mass ratio] 1.3 {ratio} Normal 0.9-2.4 [facility] Comment on above: Performed By: #### L 100.0100, L500.4050, L503.0105, L500.4100, L506.1000 #### [facility] [address] [place], [address] ALK P 92 U/L Normal 45-117 [facility] Comment on above: Performed By: #### L 100.0100, L500.4050, L503.0105, L500.4100, L506.1000 #### [facility] [address] [place], [address] ALT [Catalytic activity/Vol] 17 U/L Normal 13-56 [facility] Comment on above: Performed By: #### L 100.0100, L500.4050, L503.0105, L500.4100, L506.1000 #### [facility] [address] [place], [address] AST [Catalytic activity/Vol] 17 U/L Normal 15-37 [facility] Comment on above: Performed By: #### L 100.0100, L500.4050, L503.0105, L500.4100, L506.1000 #### [facility] [address] [place], [address] Bilirubin [Mass/Vol] 0.50 mg/dL Normal 0.20-1.00 [facility] Comment on above: Result Comment: For patients on eltrombopag therapy, use of Dimension [place] TBIL is not recommended. Performed By: #### L 100.0100, L500.4050, L503.0105, L500.4100, L506.1000 #### [facility] [address] [place], [address] BUN/CRE 15.6 RATIO Normal 10-20 [facility] Comment on above: Performed By: #### L 100.0100, L500.4050, L503.0105, L500.4100, L506.1000 #### [facility] [address] [place], [address] CA,Total 9.6 mg/dL Normal 8.5-10.1 [facility] Comment on above: Performed By: #### L 100.0100, L500.4050, L503.0105, L500.4100, L506.1000 #### [facility] [address] [place], [address] Chloride [Moles/Vol] 106 mmol/L Normal 98-107 [facility] Comment on above: Performed By: #### L 100.0100, L500.4050, L503.0105, L500.4100, L506.1000 #### [facility] [address] [place], [address] CO2 [Moles/Vol] 28.0 mmol/L Normal 21.0-32.0 [facility] Comment on above: Performed By: #### L 100.0100, L500.4050, L503.0105, L500.4100, L506.1000 #### [facility] [address] [place], [address] Creatinine [Mass/Vol] 0.84 mg/dL Normal 0.55-1.02 [facility] Comment on above: Result Comment: The validity of the calculated GFR GFRAA in patients over 70 years has not been determined. Clinical correlation is essential. Performed By: #### L 100.0100, L500.4050, L503.0105, L500.4100, L506.1000 #### [facility] [address] [place], [address] EST GFR - AA 85 mL/min Normal >60 [facility] Comment on above: Result Comment: Afri can Jordanian GFR Calc Performed By: #### L 100.0100, L500.4050, L503.0105, L500.4100, L506.1000 #### [facility] [address] [place], [address] GAP 6 Normal 5-15 [facility] Comment on above: Performed By: #### L 100.0100, L500.4050, L503.0105, L500.4100, L506.1000 #### [facility] [address] [place], [address] GFR/1.73 sq M.predicted among non-blacks MDRD (S/P/Bld) [Vol rate/Area] 70 mL/min/{1.73_m2} Normal >60 [facility] Comment on above: Result Comment: Non- GFR Calc Performed By: #### L 100.0100, L500.4050, L503.0105, L500.4100, L506.1000 #### [facility] [address] [place], [address] Globulin (S) [Mass/Vol] 3.2 g/dL Normal 2.2-4.2 [facility] Comment on above: Performed By: #### L 100.0100, L500.4050, L503.0105, L500.4100, L506.1000 #### [facility] [address] [place], [address] Glucose [Mass/Vol] 128 mg/dL High 74-106 [facility] Comment on above: Result Comment: Fast ing Glucose result greater than or equal to 126 mg/dL suggests DIABETES MELLITUS per A.D.A. criteria. Performed By: #### L 100.0100, L500.4050, L503.0105, L500.4100, L506.1000 #### [facility] [address] [place], [address] Potassium [Moles/Vol] 3.3 mmol/L Low 3.5-5.1 [facility] Comment on above: Performed By: #### L 100.0100, L500.4050, L503.0105, L500.4100, L506.1000 #### [facility] [address] [place], [address] Sodium [Moles/Vol] 140 mmol/L Normal 136-145 [facility] Comment on above: Performed By: #### L 100.0100, L500.4050, L503.0105, L500.4100, L506.1000 #### [facility] [address] [place], [address] T PROT 7.4 g/dL Normal 6.4-8.2 [facility] Comment on above: Performed By: #### L 100.0100, L500.4050, L503.0105, L500.4100, L506.1000 #### [facility] [address] [place], [address] Urea nitrogen [Mass/Vol] 13 mg/dL Normal 7-18 [facility] Comment on above: Performed By: #### L 100.0100, L500.4050, L503.0105, L500.4100, L506.1000 #### [facility] [address] [place], [address] Lipid Profileon 09-18-2024 Cholesterol [Mass/Vol] 224 mg/dL High 200 [facility] Comment on above: Result Comment: <200 mg/dL Desirable 200-240 mg/dL Borderline >240 mg/dL High Risk Performed By: #### L 100.0100, L500.4050, L503.0105, L500.4100, L506.1000 #### [facility] [address] [place], [address] Cholesterol in HDL [Mass/Vol] 69 mg/dL Normal [facility] Comment on above: Result Comment: The drugs N-Acetylcysteine and Metamizole may falsely depress this assay. Reference Range HDL <40 mg/dL Low HDL Cholesterol HDL >or= 60 mg/dL High HDL Cholesterol Performed By: #### L 100.0100, L500.4050, L503.0105, L500.4100, L506.1000 #### [facility] [address] [place], [address] Cholesterol in LDL [Mass/Vol] 122 mg/dL Normal 0-130 [facility] Comment on above: Performed By: #### L 100.0100, L500.4050, L503.0105, L500.4100, L506.1000 #### [facility] [address] [place], [address] Cholesterol in VLDL [Mass/Vol] 33 mg/dL Normal 5-40 [facility] Comment on above: Performed By: #### L 100.0100, L500.4050, L503.0105, L500.4100, L506.1000 #### [facility] [address] [place], [address] Triglyceride [Mass/Vol] 167 mg/dL Normal [facility] Comment on above: Result Comment: The drugs N-Acetylcysteine and Metamizole may falsely depress this assay. Serum Triglycerides Reference Interval Normal <150 mg/dL Borderline high 150 - 199 mg/dL High 200 - 499 mg/dL Very High > or = 500 mg/dL Performed By: #### L 100.0100, L500.4050, L503.0105, L500.4100, L506.1000 #### [facility] [address] [place], [address] Vitamin B12on 09-18-2024 Cobalamin (Vitamin B12) [Mass/Vol] pg/mL High 211-911 [facility] Comment on above: Performed By: #### L 100.0100, L500.4050, L503.0105, L500.4100, L506.1000 #### [facility] [address] [place], [address] Vitamin D,25 Hydroxyon 09-18 Vitamin D 25-OH 9.2 ng/mL Normal [facility] Comment on above: Result Comment: Irma min D 25(OH) Status Range Deficiency <20 ng/mL (50nmol/L) Insufficiency 20 - 30 ng/mL (50 - 75 nmol/L) Sufficiency 30 - 100 ng/mL (75 - 250 nmol/L) Toxicity >100 ng/mL (>250 nmol/L) Performed By: #### L 100.0100, L500.4050, L503.0105, L500.4100, L506.1000 #### [facility] [address] [place], [address] Breast Limited Unilateralon 03-01-2024 Breast Limited Unilateral [facility] [address] [place] [address] Breast Limited Unilateral MR#: [id number] Acct: [id number] Name: SHEELA TADEO Rep #: [id number] : 1945 F 78 From: Coleman parker MD PCP: Dr. Amisha Torrez MD Status: [facility] Study: Breast Limited Unilateral Date of Exam: Exam# [id number] Ordering Dr: April Koroma MD [id number] STUDY: ULTRASOUND BREAST - LEFT REASON FOR [...] Amisha Torrez MD; Dr. April Koroma MD Catering Sales Manager: Signed Normal [facility] Surgery Specimen Level Rex 10-25-2023 Surgery Specimen Level IV Patient Age/Sex Location Account Attending Physician SHEELA TADEO 77/F [facility] [id number] Dr. April Koroma MD Specimen: [id number] Received: 10/26/23 Status: SHANE [place] Num: [id number] Spec Type: BREAST BX Subm Dr: Dr. [...] 1 minute Fixation Time: 30.5 hours CPT: 03561 Patient Age/Sex Location Account Attending Physician SHEELA TADEO 77/F [facility] [id number] Dr. April Koroma MD Signed (signature on file) Dr. Alfa Hyman MD 10/27/23 1442 Normal [facility] Comment on above: Performed By: #### P MEG #### [facility] [place], [address] Surgery Visit Reporton 10-25 Surgery Visit Report [facility] [address] [place] [address] OFFICE VISIT Date of Service: 10/25/23 MR#: [id number] Acct: [id number] Name: SHEELA TADEO Rep #: [id number] : 1945 Provider: Dr. April wang MD Age/Sex: 77/F Location: [facility] Status: Signed Intake Vital Signs 03/12/23 08:28 [...] mg PO DAILY 10/25/23 [History Confirmed 10/25/23] [facility] Medical History HTN (hypertension) Macular [...] No diseq (more content not included)... Normal [facility] Absolute lymphocyte countOrd ered By: Amisha Torrez on 08-14-2023 Lymphocytes Auto (Unsp spec) [#/Vol] 2.15 10*3/uL 0.83-4.51 [facility] Basophil percentageOrdered B y: Amisha Torrez on 08-14-2023 Basophils/100 WBC (Bld) 0.8 % 0-1 [facility] Bilirubin [Mass/Vol] 0.30 mg/dL 0.20-1.00 [facility] Comment on above: For patients on eltr ombopag therapy, use of Dimension [place] TBIL is not recommended. Chloride [Moles/Vol] 108 mmol/L 98-107 [facility] Cholesterol [Mass/Vol] 152 mg/dL <200 [facility] Comment on above: <200 mg/dL Desirable 200-240 mg/dL Borderline >240 mg/dL High Risk Eosinophils/100 WBC (Bld) 3.2 % 0-5 [facility] Glucose [Mass/Vol] 98 mg/dL 74-106 [facility] Neutrophils (Bld) [#/Vol] 3.2 10*3/uL 2.0-7.7 [facility] Neutrophils/100 WBC (Bld) 52.4 % 47-70 [facility] Potassium [Moles/Vol] 3.6 mmol/L 3.5-5.1 [facility] Protein [Mass/Vol] 7.1 g/dL 6.4-8.2 [facility] Sodium [Moles/Vol] 142 mmol/L 136-145 [facility] Triglyceride [Mass/Vol] 115 mg/dL <199 [facility] Comment on above: The drugs N-Acetylcy steine and Metamizole may falsely depress this assay.Serum Triglycerides Reference Interval Normal <150 mg/dL Borderline high 150 - 199 mg/dL High 200 - 499 mg/dL Very High > or = 500 mg/dL WBC (Bld) [#/Vol] 6.2 10*3/uL 4.4-11.0 [facility] Blood erythrocytes count (nu mber/volume)Ordered By: Amisha Torrez on 08-14-2023 RBC (Bld) [#/Vol] 5.35 10*6/uL 4.2-5.4 [facility] Blood hemoglobin measurement (mass/volume)Ordered By: Amisha Torrez on 08-14-2023 Hemoglobin (Bld) [Mass/Vol] 16.2 g/dL 12.0-15.0 [facility] Blood lymphocytes/100 leukoc ytesOrdered By: Amisha Torrez on 08-14-2023 Lymphocytes/100 WBC (Bld) 34.8 % 19-41 [facility] Blood monocytes/100 leukocyt esOrdered By: Amisha Torrez on 08-14-2023 Monocytes/100 WBC (Bld) 8.3 % 0-10 [facility] Blood platelet mean volumeOr dered By: Amisha Torrez on 08-14-2023 Platelet mean volume (Bld) [Entitic vol] 9.6 fL 6.2-12.0 [facility] Determination of erythrocyte mean corpuscular volume (MCV)Ordered By: Amisha Torrez on 08-14-2023 MCV (RBC) [Entitic vol] 99.3 fL 81-99 [facility] Hematocrit Auto (Bld) [Volum e fraction]Ordered By: Amisha Torrez on 08-14-2023 Hematocrit (Bld) [Volume fraction] 53.1 % 37-47 [facility] - Chemistry and C hemistry - challengeOrdered By: Amisha Torrez on 08-14-2023 ALP [Catalytic activity/Vol] 133 U/L 45-117 [facility] ALT [Catalytic activity/Vol] 23 U/L 13-56 [facility] CO2 [Moles/Vol] 26.0 mmol/L 21.0-32.0 [facility] Cobalamin (Vitamin B12) [Mass/Vol] 248 pg/mL 211-911 [facility] Globulin (S) [Mass/Vol] 3.2 g/dL 2.2-4.2 [facility] Urea nitrogen/Creatinine [Mass ratio] 17.7 mg/mg 10-20 [facility] - Hematology and Cell countsOrdered By: Amisha Torrez on 08-14-2023 Erythrocyte distribution width (RBC) [Entitic vol] 50.4 fL 35.1-43.9 [facility] Erythrocyte distribution width (RBC) [Ratio] 13.7 % 11.6-14.6 [facility] Immature granulocytes/100 WBC (Bld) 0.500 % 0.0-0.9 [facility] Comment on above: IG% - Immature Granu locytes (promyelocytes, myelocytes and metamyelocytes) > 1% indicates that a LEFT SHIFT is Present. MCH (RBC) [Entitic mass] 30.3 pg 27.0-32.0 [facility] Nucleated RBC/100 WBC (Bld) [Ratio] 0 % 0-5 [facility] MCHC Auto (RBC) [Mass/Vol]Or dered By: Amisha Torrez on 08-14-2023 MCHC (RBC) [Mass/Vol] 30.5 g/dL 32-36 [facility] No Panel InformationOrdered By: Amisha Torrez on 08-14-2023 Estimated GFR (MDRD) Amer 78 mL/min >60 [facility] Comment on above: GFR Calc Estimated GFR (MDRD) Non-Af Amer 64 mL/min >60 [facility] Comment on above: Non- GFR Calc Vitamin D 25-Hydroxy 16.3 ng/mL [facility] Comment on above: Vitamin D 25(OH) Sta tus Range Deficiency <20 ng/mL (50nmol/L) Insufficiency 20 - 30 ng/mL (50 - 75 nmol/L) Sufficiency 30 - 100 ng/mL (75 - 250 nmol/L) Toxicity >100 ng/mL (>250 nmol/L) Platelets bldOrdered By: Jono Torrez on 08-14-2023 Platelets (Bld) [#/Vol] 253 10*3/uL 150-450 [facility] Serum or plasma albumin guillermo urement (mass/volume)Ordered By: Amisha Torrez on 08-14-2023 Albumin [Mass/Vol] 3.9 g/dL 3.2-5.0 [facility] Serum or plasma albumin/glob ulin mass ratioOrdered By: Amisha Torrez on 08-14-2023 Albumin/Globulin [Mass ratio] 1.2 {ratio} 0.9-2.4 [facility] Serum or plasma calcium guillermo urement (mass/volume)Ordered By: Amisha Torrez on 08-14-2023 Calcium [Mass/Vol] 9.5 mg/dL 8.5-10.1 [facility] Serum or plasma cholesterol in HDL measurement (mass/volume)Ordered By: Amisha Torrez on 08-14-2023 Cholesterol in HDL [Mass/Vol] 87 mg/dL >40 [facility] Comment on above: The drugs N-Acetylcy steine and Metamizole may falsely depress this assay. Reference Range HDL <40 mg/dL Low HDL Cholesterol HDL >or= 60 mg/dL High HDL Cholesterol Serum or plasma cholesterol in VLDL measurement (mass/volume)Ordered By: Amisha Torrez on 08-14-2023 Cholesterol in VLDL [Mass/Vol] 23 mg/dL 5-40 [facility] Serum or plasma creatinine m easurement (mass/volume)Ordered By: Amisha Torrez on 08-14-2023 Creatinine [Mass/Vol] 0.90 mg/dL 0.55-1.02 [facility] Comment on above: The validity of the calculated GFR & GFRAA in patients over 70 years has not been determined. Clinical correlation is essential. Serum or plasma low density lipoprotein (LDL) cholesterol measurement (mass/volume)Ordered By: Amisha Torrez on 08-14-2023 Cholesterol in LDL [Mass/Vol] 42 mg/dL 0-130 [facility] Serum or plasma urea nitroge n measurement (mass/volume)Ordered By: Amisha Torrez on 08-14-2023 Urea nitrogen [Mass/Vol] 16 mg/dL 7-18 [facility] Thin prep Papanicolaou smear with manual screeningOrdered By: Amisha Torrez on 08-14-2023 Thin prep Papanicolaou smear with manual screening 21 U/L 15-37 [facility] Thin prep Papanicolaou smear with manual screening 8 5-15 [facility] CNOVon 07-20-2023 CNOV Office Visit ([id number]) SHEELA TADEO ([id number]) 1945 F Date Time Provider Department 07/20/23 [...] via US mail PCP: Alonso Obando [address] [facility] [place] [place] [address] CEREBROVASCULAR HISTORY Sheela Tadeo is a 77 [...] part of the assessment. - Face, Velvet, Anabaptism, Marlen, Red Attention: - Repeat in forward [...] - Face 11/06 - Velvet 11/06 - Anabaptism - Marlen - Red 11/06 Orientation - [...] MINUTES. sumatr (more content not included)... Normal [facility] [place] Basophil percentageOrdered B y: Dr. Naranjo on 03-12-2023 Cholesterol [Mass/Vol] 117 mg/dL <200 [facility] Comment on above: <200 mg/dL Desirable 200-240 mg/dL Borderline >240 mg/dL High Risk Triglyceride [Mass/Vol] 88 mg/dL <199 [facility] Comment on above: The drugs N-Acetylcy steine and Metamizole may falsely depress this assay.Serum Triglycerides Reference Interval Normal <150 mg/dL Borderline high 150 - 199 mg/dL High 200 - 499 mg/dL Very High > or = 500 mg/dL Serum or plasma cholesterol in HDL measurement (mass/volume)Ordered By: Dr. Naranjo on 03-12-2023 Cholesterol in HDL [Mass/Vol] 67 mg/dL >40 [facility] Comment on above: The drugs N-Acetylcy steine and Metamizole may falsely depress this assay. Reference Range HDL <40 mg/dL Low HDL Cholesterol HDL >or= 60 mg/dL High HDL Cholesterol Serum or plasma cholesterol in VLDL measurement (mass/volume)Ordered By: Dr. Naranjo on 03-12-2023 Cholesterol in VLDL [Mass/Vol] 18 mg/dL 5-40 [facility] Serum or plasma low density lipoprotein (LDL) cholesterol measurement (mass/volume)Ordered By: Dr. Naranjo on 03-12-2023 Cholesterol in LDL [Mass/Vol] 32 mg/dL 0-130 [facility] Absolute lymphocyte countOrd ered By: Dr. Azevedo on 03-11-2023 Lymphocytes Auto (Unsp spec) [#/Vol] 1.95 10*3/uL 0.83-4.51 [facility] Basophil percentageOrdered B y: Dr. Naranjo on 03-11-2023 Basophil percentage 0-5 SEEN /hpf 0-5 [facility] Basophil percentageOrdered B y: Dr. Azevedo on 03-11-2023 Basophils/100 WBC (Bld) 0.7 % 0-1 [facility] Chloride [Moles/Vol] 106 mmol/L 98-107 [facility] Eosinophils/100 WBC (Bld) 1.6 % 0-5 [facility] Glucose [Mass/Vol] 116 mg/dL 74-106 [facility] Comment on above: Fasting Glucose resu lt from 100 to 125 mg/dL suggests IMPAIRED HOMEOSTASIS per A.D.A. criteria. Neutrophils (Bld) [#/Vol] 4.3 10*3/uL 2.0-7.7 [facility] Neutrophils/100 WBC (Bld) 61.7 % 47-70 [facility] Potassium [Moles/Vol] 3.9 mmol/L 3.5-5.1 [facility] Sodium [Moles/Vol] 141 mmol/L 136-145 [facility] WBC (Bld) [#/Vol] 7.0 10*3/uL 4.4-11.0 [facility] Bilirubin Test strip Ql (U)O rdered By: Dr. Naranjo on 03-11-2023 Bilirubin Ql (U) Negative Negative [facility] Blood erythrocytes count (nu mber/volume)Ordered By: Dr. Azevedo on 03-11-2023 RBC (Bld) [#/Vol] 4.85 10*6/uL 4.2-5.4 [facility] Blood hemoglobin measurement (mass/volume)Ordered By: Dr. Azevedo on 03-11-2023 Hemoglobin (Bld) [Mass/Vol] 15.6 g/dL 12.0-15.0 [facility] Blood lymphocytes/100 leukoc ytesOrdered By: Dr. Azevedo on 03-11-2023 Lymphocytes/100 WBC (Bld) 27.8 % 19-41 [facility] Blood monocytes/100 leukocyt esOrdered By: Dr. Azevedo on 03-11-2023 Monocytes/100 WBC (Bld) 8.1 % 0-10 [facility] Blood platelet mean volumeOr dered By: Dr. Azevedo on 03-11-2023 Platelet mean volume (Bld) [Entitic vol] 8.9 fL 6.2-12.0 [facility] Determination of erythrocyte mean corpuscular volume (MCV)Ordered By: Dr. Azevedo on 03-11-2023 MCV (RBC) [Entitic vol] 97.9 fL 81-99 [facility] Glucose Glucometer (BldC) [M ass/Vol]Ordered By: Dr. Aezvedo on 03-11-2023 Glucose [Mass/Vol] 110 mg/dL 74-106 [facility] Comment on above: MANAGEMENT OF PATIEN T CARE PER NURSING PROTOCOL Hematocrit Auto (Bld) [Volum e fraction]Ordered By: Dr. Azevedo on 03-11-2023 Hematocrit (Bld) [Volume fraction] 47.5 % 37-47 [facility] INR in Blood by Coagulation assayOrdered By: Dr. Azevedo on 05-06-2023 INR Coag (Bld) [Relative time] 0.9 {INR} [facility] Ketones Test strip Ql (U)Ord ered By: Dr. Naranjo on 03-11-2023 Ketones Ql (U) Negative Negative [facility] Laboratory - Chemistry and C hemistry - challengeOrdered By: Dr. Azevedo on 03-11-2023 CO2 [Moles/Vol] 27.0 mmol/L 21.0-32.0 [facility] Urea nitrogen/Creatinine [Mass ratio] 18.8 mg/mg 10-20 [facility] Laboratory - CoagulationOrde red By: Dr. Azevedo on 03-11-2023 aPTT Coag (Bld) [Time] 26.6 s 24.1-36.2 [facility] PT Coag (PPP) [Time] 12.0 s 11.7-14.9 [facility] Laboratory - Hematology and Cell countsOrdered By: Dr. Azevedo on 03-11-2023 Erythrocyte distribution width (RBC) [Entitic vol] 47.3 fL 35.1-43.9 [facility] Erythrocyte distribution width (RBC) [Ratio] 13.2 % 11.6-14.6 [facility] Immature granulocytes/100 WBC (Bld) 0.100 % 0.0-0.9 [facility] Comment on above: IG% - Immature Granu locytes (promyelocytes, myelocytes and metamyelocytes) > 1% indicates that a LEFT SHIFT is Present. MCH (RBC) [Entitic mass] 32.2 pg 27.0-32.0 [facility] Nucleated RBC/100 WBC (Bld) [Ratio] 0 % 0-5 [facility] MCHC Auto (RBC) [Mass/Vol]Or dered By: Dr. Azevedo on 03-11-2023 MCHC (RBC) [Mass/Vol] 32.8 g/dL 32-36 [facility] Mucus LM Ql (Urine sed)Order ed By: Dr. Naranjo on 03-11-2023 Mucus Ql (Urine sed) 0 SEEN /hpf [facility] Nitrite Test strip Ql (U)Ord ered By: Dr. Naranjo on 03-11-2023 Nitrite Ql (U) Negative Negative [facility] No Panel InformationOrdered By: Dr. Naranjo on 03-11-2023 Troponin I High Sensitivity 29 pg/mL 3.0-54.0 [facility] Comment on above: Please Note: New Erika t Units and Gender Specific Reference Ranges. For more information see Policy Stat Procedure [place] High Sensitivity Troponin (TNIH) and attachments. No Panel InformationOrdered By: Dr. Azevedo on 03-11-2023 Estimated Creatinine Clearance Calc 31.48 ml/min [facility] Estimated GFR (MDRD) Amer 61 mL/min >60 [facility] Comment on above: GFR Calc Estimated GFR (MDRD) Non-Af Amer 50 mL/min >60 [facility] Comment on above: Non- GFR Calc Troponin I High Sensitivity 32 pg/mL 3.0-54.0 [facility] Comment on above: Please Note: New Erika t Units and Gender Specific Reference Ranges. For more information see Policy Stat Procedure [place] High Sensitivity Troponin (TNIH) and attachments. Platelets bldOrdered By: Dr. Azevedo on 03-11-2023 Platelets (Bld) [#/Vol] 267 10*3/uL 150-450 [facility] Protein Test strip Ql (U)Ord ered By: Dr. Naranjo on 03-11-2023 Protein Ql (U) 15 mg/dl Negative [facility] Serum or plasma calcium guillermo urement (mass/volume)Ordered By: Dr. Azevedo on 03-11-2023 Calcium [Mass/Vol] 10.6 mg/dL 8.5-10.1 [facility] Serum or plasma creatinine m easurement (mass/volume)Ordered By: Dr. Azevedo on 03-11-2023 Creatinine [Mass/Vol] 1.12 mg/dL 0.55-1.02 [facility] Comment on above: The validity of the calculated GFR & GFRAA in patients over 70 years has not been determined. Clinical correlation is essential. Serum or plasma urea nitroge n measurement (mass/volume)Ordered By: Dr. Azevedo on 03-11-2023 Urea nitrogen [Mass/Vol] 21 mg/dL 7-18 [facility] Squamous epithelial cells de tection in urine sediment by light microscopyOrdered By: Dr. Naranjo on 03-11-2023 Epithelial cells.squamous LM Ql (Urine sed) 0 SEEN /hpf 5-10 [facility] Thin prep Papanicolaou smear with manual screeningOrdered By: Dr. Azevedo on 03-11-2023 Thin prep Papanicolaou smear with manual screening 8 5-15 [facility] Urine blood detectionOrdered By: Dr. Naranjo on 03-11-2023 RBC Ql (U) 10 /ul Negative [facility] RBC Ql (U) 0-5 SEEN /hpf 0-5 [facility] Urine clarityOrdered By: Dr. Naranjo on 03-11-2023 Clarity (U) Clear Clear [facility] Urine color determinationOrd ered By: Dr. Naranjo on 03-11-2023 Color (U) Yellow Yellow [facility] Urine glucose detectionOrder ed By: Dr. Naranjo on 03-11-2023 Glucose Ql (U) Normal mg/dl Normal [facility] Urine leukocyte esterase det ection by dipstickOrdered By: Dr. Naranjo on 03-11-2023 Leukocyte esterase Test strip Ql (U) 25 /ul Negative [facility] Urine pHOrdered By: Dr. Tabitha urbano on 03-11-2023 pH (U) 6.5 [pH] 5.0 - 8.0 [facility] Urine sediment bacteria coun t by microscopy (number/high power field)Ordered By: Dr. Naranjo on 03-11-2023 Bacteria LM.HPF (Urine sed) [#/Area] 0 /[HPF] None Seen [facility] Urine specific gravity measu rementOrdered By: Dr. Naranjo on 03-11-2023 Specific gravity (U) [Rel density] 1.015 1.002-1.030 [facility] Urobilinogen Auto test strip Ql (U)Ordered By: Dr. Naranjo on 03-11-2023 Urobilinogen Ql (U) Normal mg/dl Normal [facility] CNTHERAPYon 02-28-2023 CNTHERAPY OT/PT/Speech Visit (AKOTLK) CARLYLESHEELA Amilcar ([id number]) 1945 F Date Time Provider Department 02/28/23 10:45 AM KEN GBARIEL Date Time Provider Department Center 02/28/2023 10:45 AM [id number] GABRIEL ANALIA ZAMBRANO Reason for Visit: OT [...] one(1) tablet twice daily. Letter Dani Multani [facility] [place] 02-17-2023 CNPN Telephone (NECVS8) CARLYLESHEELA ([id number]) 1945 F Date Time Provider Department 02/17/23 [...] Carlyle, 1945). Yes Number to return call [phone] Reason for Call: [facility] Call Center is calling to assist patient with Sooner appointment with Dr. Newberry. He states patient is being referred to Dr. Newberry by Dr. Chiquis Haider. Patient Dx TIA, Brain Lesion and according to family friend a Skilled Nursing Facilities Professional who was on 3-way. Patient has complex vascular issue. Patient currently schedule 05/15. Please advise whether patient can be scheduled in a new slot for possible sooner appointment. Please review and advise Neelam Jeronimo. Thanks. Thank you calling [facility] [place]. You will receive a return call within [...] Status:Closed by NEELAM HINOJOSA on 04/05/23 [facility] CNTHERAPYon 02-15-2023 CNTHERAPY OT/PT/Speech Visit (AKOTLK) SHEELA TADEO ([id number]) 1945 F Date Time Provider Department 02/15/23 10:00 AM KEN GABRIEL Date Time Provider Department [place] 02/15/2023 10:00 AM [id number] GABRIEL Reason for Visit: OT EVAL [748] [...] TAB) Take one(1) tablet twice daily. Normal [facility] CNOVon 01-25-2023 [facility] Office Visit (CVAKPO) SHEELA TADEO ([id number]) 1945 F Date Time Provider Department 01/25/23 10:00 AM CHIQUIS HAIDER During your visit today, we recorded the following information about you: Pulse Blood pressure Weight Height 90/minute 151/101 45.4 kg 1.626 m Chiquis Haider MD 07/07/2023 9:[facility] Consultation is requested by: SELF PCP: Alonso Obando [address] [place] [address] [place] [address] CEREBROVASCULAR HISTORY Sheela Tadeo is a 77 [...] vibration. Coordination: Rapid alternating movements symmetric bilaterally. Cedxif-sc-bggn, fxmy-gv-pany without dysmetria bilaterally. Gait: Narrow-based, normal spaced and stable without assistance. Tandem gait is stable. LABS Cholesterol: No results found for: CHOL LDL Chol, [place] (mg/dL) Date Value 10/15/2010 104 No results [...] ? SD (more content not included)... Normal [facility] 01-25-2023 LUCIA Telephone (NEAGAK) SHEELA TADEO ([id number]) 1945 F Date Time Provider Department 01/25/23 CHIQUIS HAIDER During your visit today, we recorded the following information about you: [employer] 01/25/2023 12:26 PM Signed Submitted through portal Consult to Occupational Therapy #[id number] to be scheduled in the [place] location AND Consult to Neurology #[id number] to be scheduled in [facility] with [employer] [facility] 02/09/2023 4:11 PM Signed Received through portal Consult to Occupational Therapy #[id number] for Driving Evaluation has been scheduled 02/15/23 in [place] with Ken Gabriel [facility] 03/09/2023 2:08 PM Signed Received through portal Consult to Neurology #[id number], patient has been scheduled with Dr. La Newberry on 05/15/23 in [facility] Allergies As of Date: 01/25/2023 (No [...] Status:Closed by INDRA MORALES on 02/09/23 Normal [facility] Nuclear Ab IA Ql (S)on 01-25 PABLO BY EIA, QUAL Negative Normal Negative [facility] Comment on above: Order Comment: Speci men Type: BLOOD SPECIMEN Ordering Facility: [facility] Address: [address] [place] [address] Result Comment: The qualitative antinuclear antibody screen test performed using enzyme immunoassay including the following antigens: dsDNA, histones, SS-A, SS-B, Sm, Sm/PHOTOCOPY OPERATOR, Scl-70, Heather-1, and centromeric antigens. Performed By: #### [id number] #### [facility] CLIA [id number] [address] [place] [address] [place] Rheumatoid fact SerPl-aCncon 01-25-2023 Rheumatoid factor Qn [IU]/mL Normal <16 [facility] Comment on above: Order Comment: Speci men Type: BLOOD SPECIMEN Ordering Facility: [facility] Address: [address] [place] [address] Performed By: #### 1 [id number] #### [facility] CLIA [id number] [address] [place] [address] [place] Absolute lymphocyte countOrd ered By: Dr. Ruffin on 01-14-2023 Lymphocytes Auto (Unsp spec) [#/Vol] 2.28 10*3/uL 0.83-4.51 [facility] Basophil percentageOrdered B y: Dr. Ruffin on 01-14-2023 Basophils/100 WBC (Bld) 1.2 % 0-1 [facility] Chloride [Moles/Vol] 110 mmol/L 98-107 [facility] Cholesterol [Mass/Vol] 172 mg/dL <200 [facility] Comment on above: <200 mg/dL Desirable 200-240 mg/dL Borderline >240 mg/dL High Risk Eosinophils/100 WBC (Bld) 4.6 % 0-5 [facility] Glucose [Mass/Vol] 63 mg/dL 74-106 [facility] Neutrophils (Bld) [#/Vol] 2.5 10*3/uL 2.0-7.7 [facility] Neutrophils/100 WBC (Bld) 44.7 % 47-70 [facility] Potassium [Moles/Vol] 3.3 mmol/L 3.5-5.1 [facility] Sodium [Moles/Vol] 145 mmol/L 136-145 [facility] Triglyceride [Mass/Vol] 180 mg/dL <199 [facility] Comment on above: The drugs N-Acetylcy steine and Metamizole may falsely depress this assay.Serum Triglycerides Reference Interval Normal <150 mg/dL Borderline high 150 - 199 mg/dL High 200 - 499 mg/dL Very High > or = 500 mg/dL WBC (Bld) [#/Vol] 5.6 10*3/uL 4.4-11.0 [facility] Blood erythrocytes count (nu mber/volume)Ordered By: Dr. Ruffin on 01-14-2023 RBC (Bld) [#/Vol] 4.18 10*6/uL 4.2-5.4 [facility] Blood hemoglobin measurement (mass/volume)Ordered By: Dr. Ruffin on 01-14-2023 Hemoglobin (Bld) [Mass/Vol] 13.3 g/dL 12.0-15.0 [facility] Blood lymphocytes/100 leukoc ytesOrdered By: Dr. Ruffin on 01-14-2023 Lymphocytes/100 WBC (Bld) 40.4 % 19-41 [facility] Blood monocytes/100 leukocyt esOrdered By: Dr. Ruffin on 01-14-2023 Monocytes/100 WBC (Bld) 8.7 % 0-10 [facility] Blood platelet mean volumeOr dered By: Dr. Ruffin on 01-14-2023 Platelet mean volume (Bld) [Entitic vol] 9.0 fL 6.2-12.0 [facility] Determination of erythrocyte mean corpuscular volume (MCV)Ordered By: Dr. Ruffin on 01-14-2023 MCV (RBC) [Entitic vol] 99.8 fL 81-99 [facility] Hematocrit Auto (Bld) [Volum e fraction]Ordered By: Dr. Ruffin on 01-14-2023 Hematocrit (Bld) [Volume fraction] 41.7 % 37-47 [facility] Laboratory - Chemistry and C hemistry - challengeOrdered By: Dr. Ruffin on 01-14-2023 CO2 [Moles/Vol] 28.0 mmol/L 21.0-32.0 [facility] Urea nitrogen/Creatinine [Mass ratio] 27.5 mg/mg 10-20 [facility] Laboratory - Hematology and Cell countsOrdered By: Dr. Ruffin on 01-14-2023 Erythrocyte distribution width (RBC) [Entitic vol] 51.5 fL 35.1-43.9 [facility] Erythrocyte distribution width (RBC) [Ratio] 14.1 % 11.6-14.6 [facility] Immature granulocytes/100 WBC (Bld) 0.400 % 0.0-0.9 [facility] Comment on above: IG% - Immature Granu locytes (promyelocytes, myelocytes and metamyelocytes) > 1% indicates that a LEFT SHIFT is Present. MCH (RBC) [Entitic mass] 31.8 pg 27.0-32.0 [facility] Nucleated RBC/100 WBC (Bld) [Ratio] 0 % 0-5 [facility] MCHC Auto (RBC) [Mass/Vol]Or dered By: Dr. Ruffin on 01-14-2023 MCHC (RBC) [Mass/Vol] 31.9 g/dL 32-36 [facility] No Panel InformationOrdered By: Dr. Ruffin on 01-14-2023 Estimated Creatinine Clearance Calc 34.55 ml/min [facility] Estimated GFR (MDRD) Amer 94 mL/min >60 [facility] Comment on above: GFR Calc Estimated GFR (MDRD) Non-Af Amer 78 mL/min >60 [facility] Comment on above: Non- GFR Calc Platelets bldOrdered By: Dr. Ruffin on 01-14-2023 Platelets (Bld) [#/Vol] 302 10*3/uL 150-450 [facility] Serum or plasma calcium guillermo urement (mass/volume)Ordered By: Dr. Ruffin on 01-14-2023 Calcium [Mass/Vol] 8.5 mg/dL 8.5-10.1 [facility] Serum or plasma cholesterol in HDL measurement (mass/volume)Ordered By: Dr. Rufifn on 01-14-2023 Cholesterol in HDL [Mass/Vol] 56 mg/dL >40 [facility] Comment on above: The drugs N-Acetylcy steine and Metamizole may falsely depress this assay. Reference Range HDL <40 mg/dL Low HDL Cholesterol HDL >or= 60 mg/dL High HDL Cholesterol Serum or plasma cholesterol in VLDL measurement (mass/volume)Ordered By: Dr. Ruffin on 01-14-2023 Cholesterol in VLDL [Mass/Vol] 36 mg/dL 5-40 [facility] Serum or plasma creatinine m easurement (mass/volume)Ordered By: Dr. Ruffin on 01-14-2023 Creatinine [Mass/Vol] 0.76 mg/dL 0.55-1.02 [facility] Comment on above: The validity of the calculated GFR & GFRAA in patients over 70 years has not been determined. Clinical correlation is essential. Serum or plasma low density lipoprotein (LDL) cholesterol measurement (mass/volume)Ordered By: Dr. Ruffin on 01-14-2023 Cholesterol in LDL [Mass/Vol] 80 mg/dL 0-130 [facility] Serum or plasma urea nitroge n measurement (mass/volume)Ordered By: Dr. Ruffin on 01-14-2023 Urea nitrogen [Mass/Vol] 21 mg/dL 7-18 [facility] Thin prep Papanicolaou smear with manual screeningOrdered By: Dr. Ruffin on 01-14-2023 Thin prep Papanicolaou smear with manual screening 7 5-15 [facility] Glucose Glucometer (BldC) [M ass/Vol]Ordered By: Dr. Ruffin on 01-13-2023 Glucose [Mass/Vol] 96 mg/dL 74-106 [facility] Comment on above: MANAGEMENT OF PATIEN T CARE PER NURSING PROTOCOL INR in Blood by Coagulation assayOrdered By: Dr. Munguia on 01-13-2023 INR Coag (Bld) [Relative time] 1.0 {INR} [facility] - CoagulationOrde red By: Dr. Munguia on 01-13-2023 aPTT Coag (Bld) [Time] 24.0 s 24.1-36.2 [facility] PT Coag (PPP) [Time] 12.6 s 11.7-14.9 [facility] No Panel InformationOrdered By: Dr. Munguia on 01-13-2023 Troponin I High Sensitivity 23 pg/mL 3.0-54.0 [facility] Comment on above: Please Note: New Erika t Units and Gender Specific Reference Ranges. For more information see Policy Stat Procedure [place] High Sensitivity Troponin (TNIH) and attachments. Absolute lymphocyte counton 09-14-2022 Lymphocytes Auto (Unsp spec) [#/Vol] 1.81 10*3/uL 0.83-4.51 [facility] Work Phone: Basophil percentageon 2021 Basophils/100 WBC (Bld) 0.4 % 0-1 [facility] Work Phone: Bilirubin [Mass/Vol] 0.30 mg/dL 0.20-1.00 [facility] Work Phone: [phone] Comment on above: For patients on eltr ombopag therapy, use of Dimension [place] TBIL is not recommended. Chloride [Moles/Vol] 110 mmol/L 98-107 [facility] Work Phone: Cholesterol [Mass/Vol] 219 mg/dL <200 [facility] Work Phone: Comment on above: <200 mg/dL Desirable 200-240 mg/dL Borderline >240 mg/dL High Risk Eosinophils/100 WBC (Bld) 6.7 % 0-5 [facility] Work Phone: Glucose [Mass/Vol] 96 mg/dL 74-106 [facility] Work Phone: Neutrophils (Bld) [#/Vol] 5.1 10*3/uL 2.0-7.7 [facility] Work Phone: Neutrophils/100 WBC (Bld) 61.6 % 47-70 [facility] Work Phone: Potassium [Moles/Vol] 3.7 mmol/L 3.5-5.1 [facility] Work Phone: Protein [Mass/Vol] 7.2 g/dL 6.4-8.2 [facility] Work Phone: Sodium [Moles/Vol] 142 mmol/L 136-145 [facility] Work Phone: Triglyceride [Mass/Vol] 166 mg/dL <199 [facility] Work Phone: Comment on above: The drugs N-Acetylcy steine and Metamizole may falsely depress this assay.Serum Triglycerides Reference Interval Normal <150 mg/dL Borderline high 150 - 199 mg/dL High 200 - 499 mg/dL Very High > or = 500 mg/dL WBC (Bld) [#/Vol] 8.2 10*3/uL 4.4-11.0 [facility] Work Phone: Blood erythrocytes count (nu mber/volume)on 09-14-2022 RBC (Bld) [#/Vol] 4.95 10*6/uL 4.2-5.4 [facility] Work Phone: Blood hemoglobin measurement (mass/volume)on 09-14-2022 Hemoglobin (Bld) [Mass/Vol] 15.1 g/dL 12.0-15.0 [facility] Work Phone: Blood lymphocytes/100 leukoc yteson 09-14-2022 Lymphocytes/100 WBC (Bld) 22.0 % 19-41 [facility] Work Phone: Blood monocytes/100 leukocyt eson 09-14-2022 Monocytes/100 WBC (Bld) 9.1 % 0-10 [facility] Work Phone: Blood platelet mean volumeon 09-14-2022 Platelet mean volume (Bld) [Entitic vol] 9.4 fL 6.2-12.0 [facility] Work Phone: Determination of erythrocyte mean corpuscular volume (MCV)on 09-14-2022 MCV (RBC) [Entitic vol] 97.6 fL 81-99 [facility] Work Phone: Hematocrit Auto (Bld) [Volum e fraction]on 09-14-2022 Hematocrit (Bld) [Volume fraction] 48.3 % 37-47 [facility] Work Phone: Laboratory - Chemistry and C hemistry - challengeon 09-14-2022 ALP [Catalytic activity/Vol] 97 U/L 45-117 [facility] Work Phone: ALT [Catalytic activity/Vol] 15 U/L 13-56 [facility] Work Phone: CO2 [Moles/Vol] 27.0 mmol/L 21.0-32.0 [facility] Work Phone: Globulin (S) [Mass/Vol] 3.5 g/dL 2.2-4.2 [facility] Work Phone: Urea nitrogen/Creatinine [Mass ratio] 22.5 mg/mg 10-20 [facility] Work Phone: Laboratory - Hematology and Cell countson 09-14-2022 Erythrocyte distribution width (RBC) [Entitic vol] 48.9 fL 35.1-43.9 [facility] Work Phone: Erythrocyte distribution width (RBC) [Ratio] 13.5 % 11.6-14.6 [facility] Work Phone: Immature granulocytes/100 WBC (Bld) 0.200 % 0.0-0.9 [facility] Work Phone: Comment on above: IG% - Immature Granu locytes (promyelocytes, myelocytes and metamyelocytes) > 1% indicates that a LEFT SHIFT is Present. MCH (RBC) [Entitic mass] 30.5 pg 27.0-32.0 [facility] Work Phone: Nucleated RBC/100 WBC (Bld) [Ratio] 0 % 0-5 [facility] Work Phone: MCHC Auto (RBC) [Mass/Vol]on 09-14-2022 MCHC (RBC) [Mass/Vol] 31.3 g/dL 32-36 [facility] Work Phone: No Panel Informationon 09-14 Estimated GFR (MDRD) Amer 75 mL/min >60 [facility] Work Phone: Comment on above: GFR Calc Estimated GFR (MDRD) Non-Af Amer 62 mL/min >60 [facility] Work Phone: Comment on above: Non- GFR Calc Platelets bldon 09-14-2022 Platelets (Bld) [#/Vol] 253 10*3/uL 150-450 [facility] Work Phone: Serum or plasma albumin guillermo urement (mass/volume)on 09-14-2022 Albumin [Mass/Vol] 3.7 g/dL 3.2-5.0 [facility] Work Phone: Serum or plasma albumin/glob ulin mass ratioon 09-14-2022 Albumin/Globulin [Mass ratio] 1.1 {ratio} 0.9-2.4 [facility] Work Phone: Serum or plasma calcium guillermo urement (mass/volume)on 09-14-2022 Calcium [Mass/Vol] 9.6 mg/dL 8.5-10.1 [facility] Work Phone: Serum or plasma cholesterol in HDL measurement (mass/volume)on 09-14-2022 Cholesterol in HDL [Mass/Vol] 77 mg/dL >40 [facility] Work Phone: Comment on above: The drugs N-Acetylcy steine and Metamizole may falsely depress this assay. Reference Range HDL <40 mg/dL Low HDL Cholesterol HDL >or= 60 mg/dL High HDL Cholesterol Serum or plasma cholesterol in VLDL measurement (mass/volume)on 09-14-2022 Cholesterol in VLDL [Mass/Vol] 33 mg/dL 5-40 [facility] Work Phone: Serum or plasma creatinine m easurement (mass/volume)on 09-14-2022 Creatinine [Mass/Vol] 0.93 mg/dL 0.55-1.02 [facility] Work Phone: Comment on above: The validity of the calculated GFR & GFRAA in patients over 70 years has not been determined. Clinical correlation is essential. Serum or plasma low density lipoprotein (LDL) cholesterol measurement (mass/volume)on 09-14-2022 Cholesterol in LDL [Mass/Vol] 109 mg/dL 0-130 [facility] Work Phone: Serum or plasma urea nitroge n measurement (mass/volume)on 09-14-2022 Urea nitrogen [Mass/Vol] 21 mg/dL 7-18 [facility] Work Phone: Thin prep Papanicolaou smear with manual screeningon 09-14-2022 Thin prep Papanicolaou smear with manual screening 19 U/L 15-37 [facility] Work Phone: Thin prep Papanicolaou smear with manual screening 5 5-15 [facility] Work Phone: Basophil percentageon 2021 Chloride [Moles/Vol] 109 mmol/L 98-107 [facility] Work Phone: Cholesterol [Mass/Vol] 167 mg/dL <200 [facility] Work Phone: Comment on above: <200 mg/dL Desirable 200-240 mg/dL Borderline >240 mg/dL High Risk Glucose [Mass/Vol] 81 mg/dL 74-106 [facility] Work Phone: Potassium [Moles/Vol] 3.8 mmol/L 3.5-5.1 [facility] Work Phone: Sodium [Moles/Vol] 143 mmol/L 136-145 [facility] Work Phone: Triglyceride [Mass/Vol] 179 mg/dL <199 [facility] Work Phone: Comment on above: The drugs N-Acetylcy steine and Metamizole may falsely depress this assay.Serum Triglycerides Reference Interval Normal <150 mg/dL Borderline high 150 - 199 mg/dL High 200 - 499 mg/dL Very High > or = 500 mg/dL Laboratory - Chemistry and C hemistry - challengeon 07-21-2022 CO2 [Moles/Vol] 26.0 mmol/L 21.0-32.0 [facility] Work Phone: Urea nitrogen/Creatinine [Mass ratio] 23.4 mg/mg 10-20 [facility] Work Phone: No Panel Informationon 07-21 Estimated Creatinine Clearance Calc 43.20 ml/min [facility] Work Phone: Estimated GFR (MDRD) Amer 88 mL/min >60 [facility] Work Phone: Comment on above: GFR Calc Estimated GFR (MDRD) Non-Af Amer 73 mL/min >60 [facility] Work Phone: Comment on above: Non- GFR Calc Serum or plasma calcium guillermo urement (mass/volume)on 07-21-2022 Calcium [Mass/Vol] 9.5 mg/dL 8.5-10.1 [facility] Work Phone: Serum or plasma cholesterol in HDL measurement (mass/volume)on 07-21-2022 Cholesterol in HDL [Mass/Vol] 55 mg/dL >40 [facility] Work Phone: Comment on above: The drugs N-Acetylcy steine and Metamizole may falsely depress this assay. Reference Range HDL <40 mg/dL Low HDL Cholesterol HDL >or= 60 mg/dL High HDL Cholesterol Serum or plasma cholesterol in VLDL measurement (mass/volume)on 07-21-2022 Cholesterol in VLDL [Mass/Vol] 36 mg/dL 5-40 [facility] Work Phone: Serum or plasma creatinine m easurement (mass/volume)on 07-21-2022 Creatinine [Mass/Vol] 0.81 mg/dL 0.55-1.02 [facility] Work Phone: Comment on above: The validity of the calculated GFR & GFRAA in patients over 70 years has not been determined. Clinical correlation is essential. Serum or plasma low density lipoprotein (LDL) cholesterol measurement (mass/volume)on 07-21-2022 Cholesterol in LDL [Mass/Vol] 76 mg/dL 0-130 [facility] Work Phone: Serum or plasma urea nitroge n measurement (mass/volume)on 07-21-2022 Urea nitrogen [Mass/Vol] 19 mg/dL 7-18 [facility] Work Phone: Thin prep Papanicolaou smear with manual screeningon 07-21-2022 Thin prep Papanicolaou smear with manual screening 8 5-15 [facility] Work Phone: Absolute lymphocyte counton 07-20-2022 Lymphocytes Auto (Unsp spec) [#/Vol] 1.63 10*3/uL 0.83-4.51 [facility] Work Phone: Basophil percentageon 2021 Basophil percentage 0 SEEN /hpf 0-5 [facility] Work Phone: Basophils/100 WBC (Bld) 0.3 % 0-1 [facility] Work Phone: Bilirubin [Mass/Vol] 0.40 mg/dL 0.20-1.00 [facility] Work Phone: Comment on above: For patients on eltr ombopag therapy, use of Dimension [place] TBIL is not recommended. Chloride [Moles/Vol] 102 mmol/L 98-107 [facility] Work Phone: Eosinophils/100 WBC (Bld) 0.7 % 0-5 [facility] Work Phone: Glucose [Mass/Vol] 115 mg/dL 74-106 [facility] Work Phone: Comment on above: Fasting Glucose resu lt from 100 to 125 mg/dL suggests IMPAIRED HOMEOSTASIS per A.D.A. criteria. Neutrophils (Bld) [#/Vol] 6.7 10*3/uL 2.0-7.7 [facility] Work Phone: Neutrophils/100 WBC (Bld) 72.9 % 47-70 [facility] Work Phone: [phone] Potassium [Moles/Vol] 3.3 mmol/L 3.5-5.1 [facility] Work Phone: [phone] Protein [Mass/Vol] 6.8 g/dL 6.4-8.2 [facility] Work Phone: Sodium [Moles/Vol] 139 mmol/L 136-145 [facility] Work Phone: WBC (Bld) [#/Vol] 9.2 10*3/uL 4.4-11.0 [facility] Work Phone: Bilirubin Test strip Ql (U)o n 07-20-2022 Bilirubin Ql (U) Negative Negative [facility] Work Phone: Blood erythrocytes count (nu mber/volume)on 07-20-2022 RBC (Bld) [#/Vol] 4.80 10*6/uL 4.2-5.4 [facility] Work Phone: Blood hemoglobin measurement (mass/volume)on 07-20-2022 Hemoglobin (Bld) [Mass/Vol] 14.8 g/dL 12.0-15.0 [facility] Work Phone: [phone] Blood lymphocytes/100 leukoc yteson 07-20-2022 Lymphocytes/100 WBC (Bld) 17.8 % 19-41 [facility] Work Phone: [phone] Blood monocytes/100 leukocyt eson 07-20-2022 Monocytes/100 WBC (Bld) 7.9 % 0-10 [facility] Work Phone: Blood platelet mean volumeon 07-20-2022 Platelet mean volume (Bld) [Entitic vol] 9.3 fL 6.2-12.0 [facility] Work Phone: Determination of erythrocyte mean corpuscular volume (MCV)on 07-20-2022 MCV (RBC) [Entitic vol] 95.2 fL 81-99 [facility] Work Phone: Hematocrit Auto (Bld) [Volum e fraction]on 07-20-2022 Hematocrit (Bld) [Volume fraction] 45.7 % 37-47 [facility] Work Phone: Ketones Test strip Ql (U)on 07-20-2022 Ketones Ql (U) Negative Negative [facility] Work Phone: Laboratory - Chemistry and C hemistry - challengeon 07-20-2022 ALP [Catalytic activity/Vol] 73 U/L 45-117 [facility] Work Phone: ALT [Catalytic activity/Vol] 13 U/L 13-56 [facility] Work Phone: CO2 [Moles/Vol] 30.0 mmol/L 21.0-32.0 [facility] Work Phone: Globulin (S) [Mass/Vol] 3.5 g/dL 2.2-4.2 [facility] Work Phone: Urea nitrogen/Creatinine [Mass ratio] 22.0 mg/mg 10-20 [facility] Work Phone: Laboratory - Hematology and Cell countson 07-20-2022 Erythrocyte distribution width (RBC) [Entitic vol] 45.4 fL 35.1-43.9 [facility] Work Phone: Erythrocyte distribution width (RBC) [Ratio] 12.8 % 11.6-14.6 [facility] Work Phone: Immature granulocytes/100 WBC (Bld) 0.400 % 0.0-0.9 [facility] Work Phone: Comment on above: IG% - Immature Granu locytes (promyelocytes, myelocytes and metamyelocytes) > 1% indicates that a LEFT SHIFT is Present. MCH (RBC) [Entitic mass] 30.8 pg 27.0-32.0 [facility] Work Phone: Nucleated RBC/100 WBC (Bld) [Ratio] 0 % 0-5 [facility] Work Phone: MCHC Auto (RBC) [Mass/Vol]on 07-20-2022 MCHC (RBC) [Mass/Vol] 32.4 g/dL 32-36 [facility] Work Phone: Mucus LM Ql (Urine sed)on Mucus Ql (Urine sed) 0 SEEN /hpf [facility] Work Phone: Nitrite Test strip Ql (U)on 07-20-2022 Nitrite Ql (U) Negative Negative [facility] Work Phone: No Panel Informationon 07-20 Estimated Creatinine Clearance Calc 35.15 ml/min [facility] Work Phone: Estimated GFR (MDRD) Amer 73 mL/min >60 [facility] Work Phone: Comment on above: GFR Calc Estimated GFR (MDRD) Non-Af Amer 61 mL/min >60 [facility] Work Phone: Comment on above: Non- GFR Calc Platelets bldon 07-20-2022 Platelets (Bld) [#/Vol] 207 10*3/uL 150-450 [facility] Work Phone: Protein Test strip Ql (U)on 07-20-2022 Protein Ql (U) Negative Negative [facility] Work Phone: Serum or plasma albumin guillermo urement (mass/volume)on 07-20-2022 Albumin [Mass/Vol] 3.3 g/dL 3.2-5.0 [facility] Work Phone: Serum or plasma albumin/glob ulin mass ratioon 07-20-2022 Albumin/Globulin [Mass ratio] 0.9 {ratio} 0.9-2.4 [facility] Work Phone: Serum or plasma calcium guillermo urement (mass/volume)on 07-20-2022 Calcium [Mass/Vol] 11.2 mg/dL 8.5-10.1 [facility] Work Phone: Serum or plasma creatinine m easurement (mass/volume)on 07-20-2022 Creatinine [Mass/Vol] 0.95 mg/dL 0.55-1.02 [facility] Work Phone: Comment on above: The validity of the calculated GFR & GFRAA in patients over 70 years has not been determined. Clinical correlation is essential. Serum or plasma urea nitroge n measurement (mass/volume)on 07-20-2022 Urea nitrogen [Mass/Vol] 21 mg/dL 7-18 [facility] Work Phone: Squamous epithelial cells de tection in urine sediment by light microscopyon 07-20-2022 Epithelial cells.squamous LM Ql (Urine sed) 0 SEEN /hpf 5-10 [facility] Work Phone: Thin prep Papanicolaou smear with manual screeningon 07-20-2022 Thin prep Papanicolaou smear with manual screening 15 U/L 15-37 [facility] Work Phone: Thin prep Papanicolaou smear with manual screening 7 5-15 [facility] Work Phone: Urine blood detectionon 07-07 RBC Ql (U) 10 /ul Negative [facility] Work Phone: RBC Ql (U) 0 SEEN /hpf 0-5 [facility] Work Phone: Urine clarityon 07-20-2022 Clarity (U) Sl. Cloudy Clear [facility] Work Phone: Urine color determinationon 07-20-2022 Color (U) Yellow Yellow [facility] Work Phone: Urine glucose detectionon Glucose Ql (U) Normal mg/dl Normal [facility] Work Phone: Urine leukocyte esterase det ection by dipstickon 07-20-2022 Leukocyte esterase Test strip Ql (U) 25 /ul Negative [facility] Work Phone: Urine pHon 07-20-2022 pH (U) 6.5 [pH] 5.0 - 8.0 [facility] Work Phone: Urine sediment bacteria coun t by microscopy (number/high power field)on 07-20-2022 Bacteria LM.HPF (Urine sed) [#/Area] 1 /[HPF] None Seen [facility] Work Phone: Urine specific gravity measu rementon 07-20-2022 Specific gravity (U) [Rel density] 1.010 1.002-1.030 [facility] Work Phone: Urobilinogen Auto test strip Ql (U)on 07-20-2022 Urobilinogen Ql (U) Normal mg/dl Normal [facility] Work Phone: Whole blood hemoglobin A1c/t otal hemoglobin ratio (mass fraction)on 07-20-2022 HbA1c (Bld) [Mass fraction] 5.3 % 3.8-5.6 [facility] Work Phone: Comment on above: Normal < 5.7 % Predi abetic 5.7 - 6.4 % Diabetic >or= 6.5 % Please note range changes. Vital Signs Date Time Vital Sign Value Performing Clinician Faci lity 03-13-2023 11:10-0400 Body mass index (BMI) [Ratio] 17.4 kg/m2 Dr. Amisha Torrez Work Phone: [facility] 03-13-2023 09:00-0400 Body temperature 97.7 [degF] Dr. Amisha Torrez Work Phone: [facility] 03-13-2023 09:00-0400 Diastolic blood pressure 101 mm[Hg] Dr. Amisha Torrez Work Phone: [facility] 03-13-2023 09:00-0400 Heart rate 65 /min Dr. Amisha Torrez Work Phone: [facility] 03-13-2023 09:00-0400 Respiratory rate 16 /min Dr. Amisha Torrez Work Phone: [facility] 03-13-2023 09:00-0400 SaO2% (BldA) [Mass fraction] 100 % Dr. Amisha Torrez Work Phone: [facility] 03-13-2023 09:00-0400 Systolic blood pressure 147 mm[Hg] Dr. Amisha Torrez Work Phone: [facility] 03-12-2023 08:28-0400 Body height 162.[address] Amisha Torrez Work Phone: [facility] 03-12-2023 08:28-0400 Body weight 46.[address] Amisha Torrez Work Phone: [facility] 03-11-2023 20:00-0400 Body temperature 97.9 [degF] Dr. Amisha Torrez Work Phone: [facility] 03-11-2023 20:00-0400 Diastolic blood pressure 85 mm[Hg] Dr. Amisha Torrez Work Phone: [facility] 03-11-2023 20:00-0400 Heart rate 65 /min Dr. Amisha Torrez Work Phone: [facility] 03-11-2023 20:00-0400 Respiratory rate 18 /min Dr. Amisha Torrez Work Phone: [facility] 03-11-2023 20:00-0400 SaO2% (BldA) [Mass fraction] 97 % Dr. Amisha Torrez Work Phone: [facility] 03-11-2023 20:00-0400 Systolic blood pressure 114 mm[Hg] Dr. Amisha Torrez Work Phone: [facility] 03-11-2023 18:07-0400 Body height 157.[address] Amisha Torrez Work Phone: [facility] 03-11-2023 18:07-0400 Body mass index (BMI) [Ratio] 19.1 kg/m2 Dr. Amisha Torrez Work Phone: [facility] 03-11-2023 18:07-0400 Body weight 47.[address] Amisha Torrez Work Phone: [facility] 01-25-2023 10:04-0400 Body height 162.6 cm Chiquis Haider MD Work Phone: [facility] 01-25-2023 10:04-0400 Body weight 45.36 kg Chiquis Haider MD Work Phone: [facility] 01-25-2023 10:04-0400 Diastolic blood pressure 101 mm[Hg] Chiquis Haider MD Work Phone: [facility] 01-25-2023 10:04-0400 Heart rate 90 /min Chiquis Haider MD Work Phone: [facility] 01-25-2023 10:04-0400 Systolic blood pressure 151 mm[Hg] Chiquis Haider MD Work Phone: [facility] 01-14-2023 14:16-0500 Body temperature 98 [degF] Dr. Amisha Torrez Work Phone: [facility] 01-14-2023 14:16-0500 Diastolic blood pressure 96 mm[Hg] Dr. Amisha Torrez Work Phone: [facility] 01-14-2023 14:16-0500 Heart rate 68 /min Dr. Amisha Torrez Work Phone: [facility] 01-14-2023 14:16-0500 Respiratory rate 18 /min Dr. Amisha Torrez Work Phone: [facility] 01-14-2023 14:16-0500 SaO2% (BldA) [Mass fraction] 96 % Dr. Amisha Torrez Work Phone: [facility] 01-14-2023 14:16-0500 Systolic blood pressure 125 mm[Hg] Dr. Amisha Torrez Work Phone: [facility] 01-14-2023 03:47-0500 Body mass index (BMI) [Ratio] 17.6 kg/m2 Dr. Amisha Torrez Work Phone: [facility] 01-13-2023 18:50-0500 Body height 162.[address] Amisha Torrez Work Phone: [facility] 01-13-2023 18:50-0500 Body weight 46.[address] Amisha Torrez Work Phone: [facility] 10-11-2022 12:57-0500 Body mass index (BMI) [Ratio] 17.8 kg/m2 Dr. Amisha Torrez Work Phone: [facility] 10-11-2022 12:57-0500 Body temperature 97.7 [degF] Dr. Amisha Torrez Work Phone: [facility] 10-11-2022 12:57-0500 Body weight 47.[address] Amisha Torrez Work Phone: [facility] 10-11-2022 12:57-0500 Diastolic blood pressure 80 mm[Hg] Dr. Amisha Torrez Work Phone: [facility] 10-11-2022 12:57-0500 Heart rate 81 /min Dr. Amisha Torrez Work Phone: [facility] 10-11-2022 12:57-0500 Respiratory rate 16 /min Dr. Amisha Torrez Work Phone: [facility] 10-11-2022 12:57-0500 SaO2% (BldA) [Mass fraction] 100 % Dr. Amisha Torrez Work Phone: [facility] 10-11-2022 12:57-0500 Systolic blood pressure 128 mm[Hg] Dr. Amisha Torrez Work Phone: [facility] 07-21-2022 14:09-0400 Body temperature 98.1 [degF] MD Ike Palacios Work Phone: [facility] Work Phone: 07-21-2022 14:09-0400 Diastolic blood pressure 85 mm[Hg] MD Ike Palacios Work Phone: [facility] Work Phone: 07-21-2022 14:09-0400 Heart rate 76 /min MD Ike Palacios Work Phone: [facility] Work Phone: 07-21-2022 14:09-0400 Respiratory rate 18 /min MD Ike Palacios Work Phone: [facility] Work Phone: 07-21-2022 14:09-0400 SaO2% (BldA) [Mass fraction] 96 % MD Ike Palacios Work Phone: [facility] Work Phone: 07-21-2022 14:09-0400 Systolic blood pressure 132 mm[Hg] MD Ike Palacios Work Phone: [facility] Work Phone: 07-21-2022 10:22-0400 Body height 162.56 cm MD Ike Palacios Work Phone: [facility] Work Phone: 07-21-2022 10:22-0400 Body mass index (BMI) [Ratio] 17.5 kg/m2 MD Ike Palacios Work Phone: [facility] Work Phone: 07-21-2022 10:22-0400 Body weight 46.32 kg MD Ike Palacios Work Phone: [facility] Work Phone: 07-20-2022 16:15-0400 Body temperature 98.2 [degF] [facility] Work Phone: 07-20-2022 16:15-0400 Diastolic blood pressure 106 mm[Hg] [facility] Work Phone: 07-20-2022 16:15-0400 Heart rate 72 /min [facility] Work Phone: 07-20-2022 16:15-0400 Respiratory rate 16 /min [facility] Work Phone: 07-20-2022 16:15-0400 SaO2% (BldA) [Mass fraction] 99 % [facility] Work Phone: 07-20-2022 16:15-0400 Systolic blood pressure 169 mm[Hg] [facility] Work Phone: 07-20-2022 12:58-0400 Body height 162.56 cm [facility] Work Phone: 07-20-2022 12:58-0400 Body mass index (BMI) [Ratio] 16.7 kg/m2 [facility] Work Phone: 07-20-2022 12:58-0400 Body weight 44.2 kg [facility] Work Phone: Encounters Encounter Date Encounter Type Care Provider Facility Start: 10-16-2024 Encounter for genera l adult medical examination without abnormal findings [facility] Start: 09-18-2024 End: 09-18-2024 ambulatory [facility] Facility:[facility] Start: 03-01-2024 End: 03-01-2024 ambulatory [facility] Work Phone: Start: 03-01-2024 End: 03-01-2024 Patient encounter procedure [facility] Work Phone: Start: 03-01-2024 End: 03-01-2024 ambulatory [facility] Facility:[facility] Start: 10-25-2023 End: 10-25-2023 ambulatory [facility] Facility:[facility] Start: 10-25-2023 End: 10-25-2023 ambulatory [facility] Facility:[facility] Start: 10-19-2023 End: 10-19-2023 ambulatory [facility] Work Phone: Start: 10-19-2023 End: 10-19-2023 Patient encounter procedure [facility] Work Phone: Start: 10-12-2023 End: 10-12-2023 ambulatory [facility] Work Phone: Start: 10-12-2023 End: 10-12-2023 Patient encounter procedure [facility] Work Phone: Start: 08-14-2023 End: 08-14-2023 ambulatory [facility] Work Phone: Start: 08-14-2023 End: 08-14-2023 Patient encounter procedure [facility], Gavin Carmen [facility] Start: 07-20-2023 End: 07-21-2023 ambulatory LA NEWBERRY Facility:[facility] Start: 06-26-2023 E-mail encounter fro m caregiver La Newberry MD Work Phone: [facility] Start: 06-26-2023 Patient encounter procedure La Newberry MD Work Phone: [facility] Comment on above: URGENT Appointment C ancelled Start: 03-12-2023 Non-patient / Non-visit Dr. Amisha Torrez Work Phone: [facility] Start: 03-11-2023 Non-patient / Non-visit Dr. Amisha Torrez Work Phone: [facility] Start: 03-11-2023 End: 03-13-2023 Evaluation and management of inpatient Dr. 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) Start: 02-07-2023 End: 02-08-2023 ambulatory CHIQUIS HAIDER Facility:[facility] Start: 01-25-2023 End: 01-26-2023 ambulatory ALONSO OBANDO Facility:[facility] Start: 01-25-2023 End: 01-25-2023 ambulatory ALONSO OBANDO Facility:[facility] Start: 01-25-2023 End: 01-25-2023 Patient encounter procedure Chiquis Haider MD Work Phone: [facility] Comment on above: Elevated blood press ure reading without diagnosis of hypertension [R03.0 (ICD-10-CM)] (Primary Dx); 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); Arterial ischemic stroke, MCA (middle cerebral artery), left, acute (HCC) Start: 01-14-2023 Non-patient / Non-visit Dr. Amisha Torrez Work Phone: [facility] Start: 01-14-2023 Non-patient / Non-visit Dr. Amisha Torrez Work Phone: [facility] Start: 01-13-2023 End: 01-14-2023 Evaluation and management of inpatient [facility]. Amisha Torrez [facility] Start: 01-13-2023 End: 01-14-[address] Amisha Torrez Work Phone: [facility] Work Phone: Start: 10-11-2022 End: 10-11-[address] Amisha Torrez Work Phone: [facility] Start: 09-14-2022 End: 09-14-2022 ambulatory MD Ike Palacios Work Phone: [facility] Work Phone: Start: 09-14-2022 End: 09-14-2022 Patient encounter procedure MD Ike Palacios [facility] Start: 07-21-2022 Non-patient / Non-visit MD Ike Palacios Work Phone: [facility] Start: 07-21-2022 Non-patient / Non-visit MD Ike Palacios Work Phone: [facility] Start: 07-21-2022 Non-patient / Non-visit MD Ike Palacios Work Phone: [facility] Start: 07-20-2022 Non-patient / Non-visit MD Ike Palacios Work Phone: [facility] Start: 07-20-2022 End: 07-21-2022 Evaluation and management of inpatient [facility] Start: 07-20-2022 End: 07-21-2022 observation encounter MD Ike Palacios Work Phone: [facility] Work Phone: Start: 07-20-2022 End: 07-20-2022 Patient encounter procedure Chris Morin WELDER OXYHYDROGENShannaSPEECH THERAPY TEACHER Work Phone: [facility] Comment on above: Confusion (Primary [...] Author Start: 07-07-2023 Influenza vaccination INFLUENZA (#1) [facility] Start: 03-13-2023 Patient discharge [facility] Start: 03-11-2023 Following clinical pathway protocol [facility] Start: 03-11-2023 Assessment of risk o f venous thromboembolism [facility] Start: 03-11-2023 Cardiac monitoring [facility] Start: 03-11-2023 Catheterization of vein [facility] Start: 03-11-2023 Elevation of head of bed [facility] Start: 03-11-2023 Exercises [facility] Start: 03-11-[address] anned interventions [facility] Start: 03-11-2023 Insertion of cathete r into peripheral vein [facility] Start: 03-11-2023 Measuring intake and output [facility] Start: 03-11-2023 Notification of physician [facility] Start: 03-11-2023 Oxygen therapy [facility] Start: 03-11-2023 Patient referral to dietitian [facility] Start: 03-11-2023 Providing care accor ding to standard [facility] [facility] Start: 03-11-2023 Provision of activit y privileges [facility] Start: 03-11-2023 Referral to occupati onal therapist [facility] Start: 03-11-2023 Referral to service [facility] Start: 03-11-2023 Tobacco use cessatio n education [facility] Start: 03-11-2023 [facility] Start: 03-11-2023 Troponin I measurement [facility] Start: 03-11-2023 Urinalysis complete panel - Urine [facility] Start: 03-11-2023 Admission procedure [facility] Start: 03-11-2023 Oxygen therapy [facility] Start: 03-11-2023 [facility] Start: 01-25-2023 End: 03-27-2023 Nuclear Ab [Presence] in Serum by Immunoassay [facility] Work Phone: Comment on above: Expected: 01/25/2023 , Expires: 03/27/2023 Start: 01-25-2023 End: 03-27-2023 Rheumatoid factor [Units/volume] in Serum or Plasma [facility] Work Phone: Comment on above: Expected: 01/25/2023 , Expires: 03/27/2023 Start: 01-14-2023 Verification routine [facility] Start: 01-14-2023 Patient discharge [facility] Start: 01-14-2023 Application of intermittent pneumatic compression device [facility] Start: 01-13-2023 Following clinical pathway protocol [facility] Start: 01-13-2023 Assessment of risk o f venous thromboembolism [facility] Start: 01-13-2023 Cardiac monitoring [facility] Start: 01-13-2023 Catheterization of vein [facility] Start: 01-13-2023 Continuous pulse oximetry [facility] Start: 01-13-2023 Elevation of head of bed [facility] Start: 01-13-2023 Exercises [facility] Start: 01-13-[address] anned interventions [facility] Start: 01-13-2023 Insertion of cathete r into peripheral vein [facility] Start: 01-13-2023 Measuring intake and output [facility] Start: 01-13-2023 Notification of physician [facility] Start: 01-13-2023 Oxygen therapy [facility] Start: 01-13-2023 Providing care accor ding to standard [facility] Start: 01-13-2023 Provision of activit y privileges [facility] Start: 01-13-2023 Referral to occupati onal therapist [facility] Start: 01-13-2023 Referral to service [facility] Start: 01-13-2023 Speech therapy assessment [facility] Start: 01-13-2023 Tobacco use cessatio n education [facility] Start: 01-13-2023 [facility] Start: 01-13-2023 Admission procedure [facility] Start: 11-06-2022 ADVANCE DIRECTIVE DISCUSSION ADVANCE DIRECTIVE DISCUSSION [facility] Start: 11-06-2022 DEPRESSION ASSESSMENT DEPRESSION ASS ESSMENT [facility] Start: 07-21-2022 Patient discharge [facility] Work Phone: Start: 07-21-2022 Blood chemistry [facility] Work Phone: Start: 07-20-2022 Referral to vascular surgeon [facility] Work Phone: Start: 07-20-2022 Following clinical pathway protocol [facility] Work Phone: Start: 07-20-2022 Ambulation without limitation [facility] Work Phone: Start: 07-20-2022 Assessment of risk o f venous thromboembolism [facility] Work Phone: Start: 07-20-2022 Catheterization of vein [facility] Work Phone: Start: 07-20-2022 Insertion of cathete r into peripheral vein [facility] Work Phone: Start: 07-20-2022 Measuring intake and output [facility] Work Phone: Start: 07-20-2022 Providing care accor ding to standard [facility] Work Phone: Start: 07-20-2022 Referral to occupati onal therapist [facility] Work Phone: Start: 07-20-2022 Referral to service [facility] Work Phone: Start: 07-20-2022 Speech therapy assessment [facility] Work Phone: Start: 07-20-2022 [facility] Work Phone: Start: 07-20-2022 Magnetic resonance angiography of head without contrast MRA Head ONLY without Contrast [facility] Work Phone: Start: 07-20-2022 MRI of brain without contrast Brain without Contrast [facility] Work Phone: Start: 07-20-2022 MRI of neck vessels with contrast MRA Neck WITH and W/O Contrast [facility] Work Phone: Start: 07-20-2022 Verification routine [facility] Work Phone: Start: 07-20-2022 Admission procedure [facility] Work Phone: Start: 07-20-2022 Patient referral to dietitian [facility] Work Phone: Start: 07-07-2022 Influenza vaccination INFLUENZA (#1) [facility] Start: 03-05-2022 COVID-19 VACCINE (3 - Booster for Susan series) COVID-19 VACCINE (3 - Booster for Susan series) [facility] Start: 12-30-2021 COVID-19 VACCINE (4 - Booster for Susan series) COVID-19 VACCINE (4 - Booster for Susan series) [facility] Start: 11-06-2021 ADVANCE DIRECTIVE DISCUSSION ADVANCE DIRECTIVE DISCUSSION [facility] Start: 05-06-2019 Urine microalbumin profile DTAP,TDAP,TD (3 - Td or Tdap) [facility] Start: 10-15-2013 DIABETES SCREEN DIABETES SCREEN [facility] Start: 2010 PNEUMOCOCCAL: 65+ (1 - PCV) PNEUMOCOCCAL: 65+ (1 - PCV) [facility] Start: 1995 SHINGRIX VACCINE (1 of 2) SUMMERS GRIX VACCINE (1 of 2) [facility] Start: 1963 HEPATITIS C SCREENING HEPATITIS C KS ARJUN [facility] Start: 1957 Adult depression screening assessment DEPRESSION SCREENING [facility] Anion gap measurement [facility] Work Phone: BUN/Creatinine ratio [facility] Work Phone: Calcium [Mass/volume ] in Serum or Plasma [facility] Work Phone: Carbon dioxide, tota l [Moles/volume] in Serum or Plasma [facility] Work Phone: Chloride [Moles/volu me] in Serum or Plasma [facility] Work Phone: Creatinine [Moles/vo lume] in Serum or Plasma [facility] Work Phone: End: 01-26-2024 EPIL EEG ROUTINE EPIL EEG ROUTINE NEUROLOGY Routine Arterial ischemic stroke, MCA (middle cerebral artery), left, acute (HCC) 1 Occurrences starting 01/25/2023 until 01/26/2024 [facility] Work Phone: Comment on above: 1 Occurrences starti ng 01/25/2023 until 01/26/2024 Glucose [Mass/volume ] in Serum or Plasma [facility] Work Phone: Measurement of renal function [facility] Work Phone: OT PLAN OF CARE CERTIFICATION OT PLAN OF CARE CERTIFICATION Procedures Routine 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) Ordered: 02/16/2023 [facility] Work Phone: Comment on above: Ordered: 02/16/2023 Patient Education TIA Dc [facility] Work Phone: Patient referral [facility] Work Phone: Potassium [Moles/vol ume] in Serum or Plasma [facility] Work Phone: Sodium [Moles/volume ] in Serum or Plasma [facility] Work Phone: Urea nitrogen [Mass/volume] in Serum or Plasma [facility] Work Phone: [facility] Immunizations Immunization Date Immunization Notes Care Provider Pato raymond 08-06-2022 influenza, injectabl e, quadrivalent, preservative free [facility] 08-06-2022 influenza, seasonal, injectable Dr. Amisha Torrez Work Phone: [facility] 11-06-2020 Jessica ([employer]) MD Ike Palacios Work Phone: [facility] 12-07-2017 influenza, high dose seasonal, preservative-free Chris Morin APRN.SPEECH THERAPY TEACHER Work Phone: [facility] 08-20-2010 influenza virus vaccine, unspecified formulation Chris Morin APRN.SPEECH THERAPY TEACHER Work Phone: [facility] Work Phone: 05-06-2009 diphtheria and tetan us toxoids, adsorbed for pediatric use Chris Morin WELDER OXYHYDROGEN.SPEECH THERAPY TEACHER Work Phone: [facility] Work Phone: 09-19-2008 tetanus toxoid, reduced diphtheria toxoid, and acellular pertussis vaccine, adsorbed Chris Presleyascencion WELDER OXYHYDROGEN.SPEECH THERAPY TEACHER Work Phone: [facility] Work Phone: Payers Date Payer Category Payer Self-pay [id number] 2021 Private Health Insurance [id number] 2021 Private Health Insurance [employer] [id number] 2021-Present [phone] [address] [place] [address] Indemnity [id number] 2011 Private Health Insurance [facility] [id number] 2010 Medicare [id number] 2010 Medicare MEDICARE MEDICAR E A AND B [id number] 2010-Present [phone] [address] [address] [place] [address] Medicare [id number] Unknown [id number] Unknown [id number] Unknown [id number] Unknown [id number] Social History Date Type Detail Facility Start: 07-20-2022 End: 10-25-2023 Tobacco smoking status NHIS Unknown if ever smoked [facility] Start: 02-24-2019 None [facility] Start: 02-24-2019 Alone [facility] Start: 03-11-2019 Cigarettes [facility] Start: 1945 Sex Assigned At Female [facility] Start: 10-15-2010 Tobacco smoking stat us NHIS Never smoked tobacco [facility] Work Phone: History of tobacco use Cigarette Smoker [facility] Work Phone: Start: 10-15-2010 End: 06-26-2023 Cigarettes smoked current (pack per day) - Reported 0.[address] [facility] History of tobacco use Passive smoker [facility] Work Phone: Start: 07-20-2022 End: 01-25-2023 Alcohol intake Current drinker of alcohol (finding) [facility] Start: 05-21-2007 History SDOH Alcohol Comment social [facility] Start: 10-15-2010 Tobacco Comment 10/ wk [facility] Start: 07-10-2022 End: 07-20-2022 Exposure to SARS-CoV-2 (event) Not sure [facility] Start: 01-25-2023 End: 06-26-2023 Tobacco use panel [facility] National Score (1-10 0), lower number is lower risk [address] [facility] Start: 09-20-2021 Gender identity Identifies as female gender (finding) [facility] Goals Date Patient Goal Desired Activity /State Functional Status Date Assessment Result Facility 03-13-2023 Functional status Activity Abili ty Standby Assist [facility] Work Phone: 03-12-2023 Functional status Ambulates [facility] Work Phone: 01-14-2023 Functional status Ambulates [facility] Work Phone: 07-21-2022 Functional status Activity Ability Indepe ndent [facility] Work Phone: 07-21-2022 Functional status Patient Activi ty Ambulates;Up ad behzad [facility] Work Phone: Mental Status Date Assessment Result Facility 03-13-2023 Cognitive function Voice/Name [facility] Work Phone: 03-11-2023 Cognitive function Voice/Name [facility] Work Phone: 01-14-2023 Cognitive function Voice/Name [facility] Work Phone: 07-21-2022 Cognitive function Voice/Name [facility] Work Phone: 07-20-2022 Cognitive function Voice/Name [facility] Work Phone: Clinical Notes 07-20-2022 to 07-20-2023 Note Date & Type Note Facility 07-20-2023 Note HNO ID: [id number] Author: La Newberry MD Service: ? Author Type: Physician Type: Progress Notes Filed: 08/14/2023 8:21 PM Note Text: [facility] Initial Visit Consultation is requested by: Consultation requested by Dr. Obando for an opinion regarding white matter disease. My final recommendations will be communicated back to the requesting physician by way of shared medical record or letter via US mail PCP: Alonso Obando [address] [place] [address] [place] [address] CEREBROVASCULAR HISTORY Sheela Tadeo is a 77 [...] part of the assessment. - Face, Velvet, Anabaptism, Marlen, Red Attention: - Repeat in forward [...] - Face 11/06 - Velvet 11/06 - Anabaptism - Marlen - Red 11/06 Orientation - Date 0/1 - Month 11/06 - Year 11/06 - Day 11/06 - Place 11/06 - [facility] 11/06 Total Points Scored 25/30 Normal [...] TAB) Take one (more content not included)... [facility] 03-13-2023 Discharge summary Note Date/Time March 13, 2023 10:52a m [facility] Medical Records Department [address] [place] [address] Instructions for Home/Discharge Instructions 03/13/23 1050 MR#: [id number] Acct: [id number] Name: SHEELA TADEO Rep #:[id number] : [...] DO; Dr. Amisha Torrez MD ~ Signed [facility] Work Phone: 1(924) 157-527905-07-[address] Farr [facility] March 12, 2023 8:58am Note Date/Time March 12, 2023 7:35am [facility] Medical Records Department [address] [place] [address] Progress Note - Hospitalist 03/12/23 0732 MR#: [id number] Acct: [id number] Name: SHEELA TADEO Rep #:[id number] : 1945 77 From: Kenny Farr MD PCP: Dr. Amisha Torrez MD Status:ADM IN Location: [place] 1894503- [id number] Reason for Visit Reason for Visit: [...] % (Auto) 61.7, Lymph % (Auto) 27.8, Fannin% (Auto) 8.1, Eos % (Auto) 1.6, Baso [...] Clarity Clear, Urine pH 6.5, Ur Specific [place] 1.015, Urine Protein 15 H, Urine Glucose [...] documentation, 40Minutes Charges/Coding Visit Charges Inpatient E&M: 17300 Subs Hosp L2 03/12/23 0858 <Electronically signed by Kenny Farr MD> Cosigner Signature (if applicable): CC: ~ Signed [facility] Work Phone: 1(792) 887-991905-06-[address] Azevedo [facility] March 11, 2023 9:13pm Note Date/Time March 11, 2023 6:00pm [facility] Medical Records Department [address] [place] [address] Emergency Department Summary 03/11/23 MR#: [id number] Acct: [id number] Name: SHEELA TADEO Rep #:[id number] : 1945 77 From: Rafat Azevedo MD PCP: Dr. Amisha Torrez MD Status:ADM IN Location: [place] [address] HPI History of Present Illness Chief Complaint: Neuro S/Sx Informant: patient and family Narrative Narrative: History is per patient but more per her son who is with her when the events happened and is present now. This patient presents with strokelike symptoms. She denied prior stroke but hersons and pdumwbil-ry-bet states that she has had mini strokes [...] These were out of character for her. [facility] Medical History HTN (hypertension) Macular [...] % (Auto) 61.7 Lymph % (Auto) 27.8 Fannin % (Auto) 8.1 Eos % (Auto) 1.6 [...] (Auto) Neut % (Auto) Lymph % (Auto) Fannin % (Auto) Eos % (Auto) Baso % [...] pressure Disposition Disposition: Acute Care Hospital [facility] Discharge Date/Time: 03/11/23 20:19 What to do if you have Problems For any increased pain, shortness of breath, bleeding, nausea or vomiting, chestpain, or any unexpected problems, contact your Primary Care Provider. Call [facility] ([phone]) or report to the closest Emergency Room. [...] or depression. Minimal baseline variation. No ectopy. HI interval, QRS duration and QTc normal 03/11/232112<Electronically signed by Rafat Azevedo MD> Cosigner Signature (if applicable): cc: Dr. Amisha Torrez MD ~* Signed [facility] Work Phone: 1(130) 477-263605-06-2023 History and physical note Author Dr. Naranjo [facility] March 11, 2023 8:19pm Note Date/Time March 11, 2023 8:19pm [facility] Medical Records Department [address] [place] [address] H&P Exam - Hospitalist 03/11/232009 MR#: [id number] Acct: [id number] Name: SHEELA TADEO Rep #:[id number] : 1945 77 From: Hai Naranjo DO PCP: Dr. Amisha Torrez MD Status:ADM IN Location: [facility] ETT254- 1 HPI - General General Date of [...] put the proper way. They were in [place] for the game when he came back, [...] children read in a car with her. [facility] Medical History HTN (hypertension) Macular [...] and oriented to place Coordination / Balance: wzpqys-ux-cyva test normal and mbwd-ch-pzth test normal Speech: speech normal Psych affect [...] % (Auto) 61.7, Lymph % (Auto) 27.8, Fannin% (Auto) 8.1, Eos % (Auto) 1.6, Baso [...] molecular heparin. Charges/Coding Visit Charges Inpatient E&M: 92515 Init Hosp L3 03/11/232018 <Electronically signed by Hai Naranjo DO> Cosigner Signature (if applicable): CC: Dr. Hai Naranjo DO; Dr. Amisha Torrez MD~ Signed [facility] Work Phone: [phone]) 484-980104-25-2023 NoteHNO ID: [id number] Author: Ken Gabriel OTR/L Service: ? 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 Billing: Drivers Follow Up per 60 min (01921): 1:1 time 60 min Total time: 60 minutes DAMARIS Ramírez, CDI/PD Buncher Operator Family Practice Md documented in [facility]04[facility]-2023 Miscellaneous Notes* Telephone Encounter - Neelam [...] Tadeo, 1945). Yes Number to return call [phone] Reason for Call: [facility] Call Center is calling to assist patient with Sooner appointment with Dr. Newberry. He states patient is being referred to Dr. Newberry by Dr. Chiquis Haider. Patient Dx TIA, Brain Lesion and according to family friend a Skilled Nursing Facilities Professional who was on 3-way. Patient has complex vascular issue. Patient currently schedule 05/15. Please advise whether patient can be scheduled in a new slot for possible sooner appointment. Please review and advise Neelam Jeronimo. Thanks. Thank you calling [facility] [place]. You will receive a return call within 48hours ( or 2 business days if close to the weekend). If you feel that this is an urgent issue and needs immediate attention, it is recommended that you contact your primary care provider office or proceed to your nearest Urgent Care Center of Emergency Room ED for evaluation/treatment. documented in this [facility]04-[facility]-2023 Miscellaneous Notes* Addendum Note - DAMARIS Ramírez - 02/16/2023 1:51 PM EDTAddended by: KEN GABRIEL on: 02/16/2023 01:51 PM Modules accepted: Orders documented in this encounterMer[facility]04-12-2023 NoteHNO ID: [id number] Author: DAMARIS Ramírez Service: ? Author Type: [...] 4 days/week. She currently owns a 2017 [employer] 4 door SUV with automatic transmission. State: [place] License/Permit #: [id number] Expires: 2026 Restrictions: Right out rear view [...] Driving: Right UE: Sufficient Left UE: Sufficient Bake Room Worker: Sufficient Right LE: Sufficient Left LE: Sufficient [...] adequate lighting i (more content not included)... [facility]04-12-2023 History of Present illness Narrative* Ken Gabriel [...] / Current Exercise: walking Hobbies / Interests: [employer] Home Environment Patient Lives With: Self/Alone Assistance [...] 4 days/week. She currently owns a 2017 [employer] 4 door SUV with automatic transmission. State: [place] License/Permit #: [id number] Expires: 2026 Restrictions: Right out rear view [...] Driving: Right UE: Sufficient Left UE: Sufficient Bake Room Worker: Sufficient Right LE: Sufficient Left LE: Sufficient [...] Recall: WNL @ 6/6 digits Visual Scanning/Attention: Moselle Making Part A (sec): 58 sec Moselle Making Part B (sec): 207 sec 50th [...] Compatible with Driving and adequate with IADLs [place] Buncher Operator Simulator: Simple Brake Reaction Time: Average Distance: [...] Education/Teach Back: States/Identifies, Return Demonstration TREATMENT: Evaluation Self-Long-Term Management: 1: Educated on safety throughout the [...] 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 The above goals and plan of care were discussed and agreed upon by patient/family. Billing: Evaluation - Moderate Complexity (67505) Self Care / Home Management (50045): 1:1 time: 30 minutes (2 units: 23-37 mins) Community /Work Re-integration (13349): 1:1 time: 45 minutes (3 units: 38-52 mins) Total time: 105 minutes DAMARIS Ramírez, CDI/PD Buncher Operator Family Practice Md documented in this encounterMer[facility]03-23-2023 NoteHNO ID: [id number] Author: Chiquis Haider MD Service: ? Author Type: Physician Type: Progress Notes Filed: 01/26/2023 11:41 AM Note Text: MRIMRA of brain was reviewed with the neuro-radiologist at [facility]: severe bilateral white matter disease. No micro-bleeds. MRA of brain and neck are normalSouthern [facility]03-23-2023 History of Present illness Narrative* Chiquis Haider MD - 01/26/2023 11:40 AM EDT MRIMRA of brain was reviewed with the neuro-radiologist at [facility]: severe bilateral white matter disease. No micro-bleeds. MRA of brain and neck are normal * Chiquis Haider MD - 01/25/2023 11:00 AM EDT [facility] Initial Visit Consultation is requested by: SELF PCP: Alonso Obando [address] [place] [address] [place] [address] CEREBROVASCULAR HISTORY Sheela Tadeo is a 77 [...] vibration. Coordination: Rapid alternating movements symmetric bilaterally. Zznnvv-ke-efou, anpq-lp-xtwz without dysmetria bilaterally. Gait: Narrow-based, normal spaced and stable without assistance. Tandem gait is stable. LABS Cholesterol: No results found for: CHOL LDL Chol, [place] (mg/dL) Date Value 10/15/2010 104 No results [...] Continue BP medications Follow up with the [facility] for control of hypertension Advised [...] which included preparing to see the patient, kgaj-ii-irpm patient care, completing clinical documentation, obtaining and/or reviewing separately obtained history, performing a medically appropriate examination, counseling and educating the patient/family/caregiver, ordering medications, tests, or procedures, independently interpreting results (not separately reported), and communicating results to the patient/family/caregiver SIGNATURE Chiquis Haider MD CC SELF Alonso Obando [address] [place] [address] [place] [address] documented in [address] encounterMer[facility]03-22-2023 NoteHNO ID: [id number] Author: Chiquis Haider MD Service: ? Author Type: Physician Type: Progress Notes Filed: 07/07/2023 9:46 AM Note Text: [facility] Initial Visit Consultation is requested by: SELF PCP: Alonso Obando [address] [place] [address] [place] [address] CEREBROVASCULAR HISTORY Sheela Tadeo is a 77 [...] vibration. Coordination: Rapid alternating movements symmetric bilaterally. Encajf-zt-hacg, rbys-ji-mvqr without dysmetria bilaterally. Gait: Narrow-based, normal spaced and stable without assistance. Tandem gait is stable. LABS Cholesterol: No results found for: CHOL LDL Chol, [place] (mg/dL) Date Value 10/15/2010 104 No results [...] - Not at al (more content not included)...[facility]03-10-[address] Munguia [facility] January 13, 2023 6:27pm Note Date/Time January 13, 2023 5:0 1pm [facility] Medical Records Department [address] [place] [address] Emergency Department Summary 01/13/23 MR#: [id number] Acct: [id number] Name: SHEELA TADEO Rep #:[id number] : 1945 77 From: Constantino Munguia MD PCP: Dr. Amisha Torrez MD Status:ADM ELLA Location: [place] [address]- 1 HPI History of Present Illness Chief [...] 17:56 EST Reading Location ID and State: [facility] / [place] , Service support , EKG Initial EKG: Attestation: I personally reviewed and interpreted this EKG as follows: Interpretation: Sinus Rhythm (Heart rate is 96. There are premature atrial complexes. There is artifact which the computer is reading ST and T waveabnormality. HI interval is 144 ms. Cures duration 80 ms. QT duration 336 ms. [place] is normal.) and No Acute Injury Pattern Management Discussion w/another healthcare provider: Hospitalist Discharge Plan Triage Chief Complaint: Neuro S/Sx ED Provider: Constantino Munguia Dx/Rx/DC Orders Primary Care Provider: Amisha Torrez What to do if you have Problems For any increased pain, shortness of breath, bleeding, nausea or vomiting, chestpain, or any unexpected problems, contact your Primary Care Provider. Call [facility] ([phone]) or report to the closest Emergency Room. Call 911 if necessary. 01/13/231826 <Electronically signed by Constantino Munguia MD> Cosigner Signature (if applicable): CC: Dr. Amisha Torrez MD ~ Signed [facility] Work Phone: 1(817) 242-543403-10-2023 History and physical note Author Dr. Ruffin [facility] January 14, 2023 2:33pm Note Date/Time January 13, 2023 5:5 6pm [facility] Medical Records Department [address] [place] [address] H&P Exam - Hospitalist 01/13/23 175 MR#: [id number] Acct: [id number] Name: SHEELA TADEO Rep #:[id number] : 1945 77 From: Quin Ruffin MD PCP: Dr. Amisha Torrez MD Status:ADM ELLA Location: [place] [address] HPI - General General Date of Admission: 01/13/23 Date of Service: 01/13/23 Chief Complaint: neuro symptoms HPI Narrative SHEELA TADEO, is a Fwith a [facility] as outlined who presents via the ED [...] for expressive aphasia concerning for acute CVA. [facility] Medical History HTN (hypertension) Macular [...] Patient and her son and daughter in [facility] counseled extensively about different types of CODE STATUS including full code, DNR CCA and DNR CCA. Patient couldnt decide about her code status and wanted more time to think about it. She did understand that in light of her not having made a decision, her default code status would be full code. * Total bodu-re-ylnc time 17 minutes. Total time spent on evaluation and management of patient, reviewing chart and specialist notes, discussing plan with patient, her son and daughter in law, discussion with nursing and ancillary staff as well as documentation in EMR: 58 mins Charges/Coding Visit Charges Inpatient E&M: 34552 Init Hosp L2 Procedures Hospitalists Procedures: 37025 Advncd Care Plan 30 Min 01/14/23 1433 <Electronically signed by Quin Ruffin MD> Cosigner Signature (if applicable): CC: Dr. Amisha Torrez MD; Dr. Quin Ruffin MD~ Signed [facility] Work Phone: 1(745) 856-210109-14-2022 History of Present illness Narrative* Chris Morin [...] plan of care. Will accompany patient to [facility]. Chris Morin APRN.SPEECH THERAPY TEACHER documented [facility] Author Dr. Ruffin [facility] January 14, 2023 2:20pm Note Date/Time January 14, 2023 2:0 8pm [facility] Medical Records Department [address] [place] [address] Discharge Summary 01/14/23 1404 MR#: [id number] Acct: [id number] Name: SHEELA TADEO Rep #:[id number] : 1945 77 From: Quin Ruffin MD PCP: Dr. Amisha Torrez MD Status:ADM ELLA Location: [place] [address] Providers Date of Admission: 01/13/23 Date of [...] 74.7 H, Lymph % (Auto) 17.2 L, [place] % (Auto) 6.4, Eos % (Auto) 0.6, [...] (Auto) 44.7 L, Lymph % (Auto) 40.4, [place] % (Auto) 8.7, Eos % (Auto) 4.6, [...] 17:54 EST Reading Location ID and State: [facility] / [place] , Service support , ADDENDUM: 01/13/23 180 [...] Self Care Charges/Coding Visit Charges Inpatient E&M: 79903 Disch Hosp >30min 01/14/23 1420 <Electronically signed by Quin Ruffin MD> Cosigner Signature (if applicable): CC: Dr. Amisha Torrez MD; Dr. Quin Ruffin MD~ Signed [facility] Work Phone: evaluation note* Diagnosis Onset Date Resolution Status Confusion acute Smoker acute TIA (transient ischemic attack) acute HTN (hypertension) chronic [facility] Work Phone: evaluation note* Diagnosis Confusion- Primary Unspecified psychosis documented in this encounter [facility] note* Diagnosis Onset Date Resolution Status Confusion resolved [facility] Work Phone: evaluation note* Diagnosis Onset Date Resolution Status Stroke-like symptoms resolve d [facility] Work Phone: Evaluation note* Diagnosis Elevated blood pressure reading without diagnosis of hypertension [R03.0 (ICD-10-CM)]- Primary Elevated blood pressure reading without diagnosis of hypertension 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) Cerebral thrombosis with cerebral infarction Arterial ischemic stroke, MCA (middle cerebral artery), left, acute (HCC) Unspecified cerebral artery occlusion with cerebral infarction documented in this encounter [facility] note* Diagnosis 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)- Primary Cerebral thrombosis with cerebral infarction [facility] 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)- Primary Cerebral thrombosis with cerebral infarction documented in this encounter [facility] note* Diagnosis Onset Date Resolution Status Stroke-like symptoms resolve d Confusion acute [facility] Work Phone: Evaluation note* Diagnosis Onset Date Resolution Status Stroke-like symptoms resolve d Confusion acute History of high blood pressure acute TIA on medication acute Transient confusion acute [facility] Work Phone: Evaluation noteNo assessment information available [facility] Work Phone: History and physical note Author Dr. Naranjo [facility] March 11, 2023 8:19pm Note Date/Time March 11, 2023 8:19pm [facility] Medical Records Department [address] [place] [address] H&P Exam - Hospitalist 03/11/232009 MR#: [id number] Acct: [id number] Name: SHEELA TADEO Rep #:[id number] : 1945 77 From: Hai Naranjo DO PCP: Dr. Amisha Torrez MD Status:ADM IN Location: [facility] [address]- 1 HPI - General General Date of [...] put the proper way. They were in [place] for the game when he came back, [...] children read in a car with her. [facility] Medical History HTN (hypertension) Macular [...] and oriented to place Coordination / Balance: adilop-tz-lzla test normal and fybq-rw-cgfn test normal Speech: speech normal Psych affect [...] % (Auto) 61.7, Lymph % (Auto) 27.8, [place]ann[place]% (Auto) 8.1, Eos % (Auto) 1.6, Baso [...] molecular heparin. Charges/Coding Visit Charges Inpatient E&M: 76757 Init Hosp L3 03/11/232018 <Electronically signed by Hai Narajno DO> Cosigner Signature (if applicable): CC: Dr. Hai Naranjo DO; Dr. Amisha Torrez MD~ Signed [facility] Work Phone: Chief Complaint and [...] Yes July 20, 2022 1:07pm Power of Motorman/Woman Yes July 1:07pm Name of Medical Power of Motorman/Woman Michelle July 20, 2022 1:07pm Advance Directive Response Recorded Date/ Time Name of Medical Power of Motorman/Woman Michelle Tadeo July 20, 2022 4:15pm Living Will Yes July 20, 2022 4:15pm Power of Motorman/Woman Yes July 4:15pm Advance Directive Response Recorded Date/ Time Name of Medical Power of Motorman/Woman Michelle Tadeo July 20, 2022 3:15pm Living Will Yes July 20, 2022 3:15pm Power of Motorman/Woman Yes July 3:15pm Advance Directive Response Recorded Date/ Time Name of Medical Power of Motorman/Woman Michelle Deleon January 13, 2023 6:55pm Living Will Yes January 13, 2023 6:55pm Power of Motorman/Woman Yes January 13 6:55pm Advance Directive Response Recorded Date/ Time Name of Medical Power of Motorman/Woman Michelle Deleon January 13, 2023 7:55pm Name of Medical Power of Motorman/Woman michelle tadeo/ daughter March 11, 2023 5:51pm Living Will Yes March 11, 2023 5: 51pm Power of Motorman/Woman Yes March 11, 2023 5:51pm Advance Directive Response Recorded Date/ Time Name of Medical Power of Motorman/Woman Michelle Deleon January 13, 2023 7:55pm Name of Medical Power of Motorman/Woman michelle tadeo/ daughter March 11, 2023 8:26pm Living Will Yes March 11, 2023 8: 26pm Power of Motorman/Woman Yes March 11, 2023 8:26pm Advance Directive Response Recorded Date/ Time Living Will Yes March 11, 2023 8: 26pm Power of Motorman/Woman Yes March 11, 2023 8:26pm Advance Directive Response Recorded Date/ Time Living Will Yes March 11, 2023 7: 26pm Power of Motorman/Woman Yes March 11, 2023 7:26pm Reason for Referral Specialty Diagnoses / Procedures Referred By Trina griffiths Referred To Contact [facility] Diagnoses 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) Procedures CONSULT TO NEUROLOGY OFFICE/OUTPATIENT [facility] 60-74 MINUTES Chiquis Hadier MD [address] [place] [address] La Newberry MD [address] [place] [address] Referral ID Status Reason Start Date Expiration Date Visits Requested Visits Authorized [id number] Authorized PCP Requested Referral 01/25/2023 01/25/2024 1 1 Specialty Diagnoses / Procedures Referred By Contac t Referred To Contact [facility] Diagnoses Arterial ischemic stroke, MCA (middle cerebral artery), left, acute (HCC) Procedures EPIL EEG ROUTINE ELECTROENCEPHALOGRAM REC COMA/[place] [address] [place] [address] [place] [address] Referral ID Status Reason Start Date Expiration Date Visits Requested Visits Authorized [id number] Authorized Auto-Generat ed Referral 01/25/2023 01/26/2024 1 1 Specialty Diagnoses / Procedures Referred By Contac t Referred To Contact [facility] Diagnoses 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 HospitalIn the event this information is protected by the Federal Confidentiality of Alcohol and Drug Abuse Patient Records regulations: The Federal rules restrict any use of the information to criminally investigate or prosecute any alcohol or drug abuse patient.[facility] HospitalIn the event this information is protected by the Federal Confidentiality of Alcohol and Drug Abuse Patient Records regulations: The Federal rules restrict any use of the information to criminally investigate or prosecute any alcohol or drug abuse patient.[facility] HospitalIn the event this information is protected by the Federal Confidentiality of Alcohol and Drug Abuse Patient Records regulations: The Federal rules restrict any use of the information to criminally investigate or prosecute any alcohol or drug abuse patient.[facility] HospitalIn the event this information is protected by the Federal Confidentiality of Alcohol and Drug Abuse Patient Records regulations: The Federal rules restrict any use of the information to criminally investigate or prosecute any alcohol or drug abuse patient.[facility] HospitalIn the event this information is protected by the Federal Confidentiality of Alcohol and Drug Abuse Patient Records regulations: The Federal rules restrict any use of the information to criminally investigate or prosecute any alcohol or drug abuse patient.[facility] Care Teams (unrecognized sec tion and content) Disc Ruler Operator Relationship Specialty Start Date End Date Alonso Obando MD [address] [place], [place] [address] PCP - General Family Practice 10/15/10 Team [...] Inactive Member Role Status Dates Dr. Amisha Torrze MD Primary Care Provider Active Dr. Constantino Munguia MD Emergency Provider Active Dr. Quin Ruffin MD Admit Provider, Attending Prov ider Active Disc Ruler Operator Relationship Specialty Start Date End Date Alonso Obando MD [address] [place] [address] PCP - General Family Medicine 10/15/10 Disc Ruler Operator Relationship Specialty Start Date End Date Alonso Obando MD [address] [place], [place] [address] PCP - General Family Medicine 10/15/10 Disc Ruler Operator Relationship Specialty Start Date End Date Alonso Obando MD [address] [place], [place] [address] PCP - General Family Medicine 10/15/10 Team [...] Dr. Kenny Farr MD Other Provider Active Disc Ruler Operator Relationship Specialty Start Date End Date Alonso Obando MD [address] [place], [place] [address] PCP - General Family Medicine 10/15/10 Disc Ruler Operator Relationship Specialty Start Date End Date Alonso Obando MD [address] [place], [place] [id number] PCP - General Family Medicine 10/15/10 Team [...] anterior cerebral artery (HCC) Procedures CONSULT TO SCENIC ARTS SUPERVISOR OCCUPATIONAL THERAPY [place] HIGH COMPLEX 60 MINS Chiquis Haider MD [address] [place] [address] [facility] [address] [address] Referral ID Status Reason Start Date Expiration Date Visits Requested Visits Authorized [id number] Authorized PCP Requested Referral Auto-Generate d Referral 01/25/2023 11/05/2023 99 99 Reason Comments OT EVAL OT Discharge Specialty Diagnoses / Procedures Referred By Contac t Referred To Contact [facility] Diagnoses 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 [address] [address] Reason Comments Appointment Sooner appointment. INFORMATION SOURCE (unrecogn ized section and content) DATE CREATED AUTHOR 07/08/2023 [facility] DATE CREATED AUTHOR AUTHOR'S ORGANIZ ATION 08/16/2023 [facility] DATE CREATED AUTHOR AUTHOR'S ORGANIZ ATION 10/19/2024 [facility] FOR RECORDS PERTAINING TO PATIENTS WHO [...] BE BASED ON THE PRIMARY CLINICAL RECORDS. [facility] pic5 [facility]. provides no warranty or guarantee of the accuracy or completeness of information in this document.
[2025-10-23 09:47] LABS: Vitamin D,25 Hydroxy 117.0 ng/mL (30-100)
== END ==
LOC: OLS.WHLTSB 05:00
PROVIDERS: PCP Family Medicine; Visit Provider Internal Medicine
DX: E78.5 Hyperlipidemia, unspecified (principal); F41.9 Anxiety disorder, unspecified; G45.9 Transient cerebral ischemic attack, unspecified; H35.30 Unspecified macular degeneration; I10 Essential (primary) hypertension; N18.30 Chronic kidney disease, stage 3 unspecified
CPT/HCPCS: 36415; 82306

== ENCOUNTER → 2025-11-04 05:00 | Outpatient (REF) | payer MEDICARE, SELFPAY ==
--- OUTSIDE RECORDS SUMMARY | 2025-11-04 03:41 | XMS RPT_ITS | CCD ---
Author Organization [facility] Care Team Providers Care Sider Name Role Phone Chyna BETANCOURT, Alonso Keenan Primary Care Provider MD Ike Palacios Emergency Provider Dr. Amisha Torrez Primary Care Provider Dr. Vijay Juárezit Provider Dr. Vijay Juárez Other Provider Dr. Hai Doe Other Provider Donnell BAKERY DELIVERER, RAFAL-Juliana Richter Attending Provider Dr. Cresencio Villarreal Attending Provider [...] Referring Unavailable ALONSO OBANDO Primary Care Unavailable Kyfaisal Amisha Referring Unavailable Amisha Torrez Attending Unavailable [...] Drug Class(es) Dates Sig (Normalized) Sig (Original) [id number] 200 actuat albuterol 0.09 mg/actuat metered dose [...] Absolute Lymph 1.20 X10 3/uL Normal 0.83-4.51 [facility] Comment on above: Performed By: #### L 100.0100, L500.4050, L503.0105, L500.4100, L506.1000 #### [facility] [address] [place], [place], [id number] Absolute Neut 5.8 X10 3/uL Normal 2.0-7.7 [facility] Comment on above: Performed By: #### L 100.0100, L500.4050, L503.0105, L500.4100, L506.1000 #### [facility] [address] [place], [address] Basophils/100 WBC (Bld) 0.4 % Normal 0-1 [facility] Comment on above: Performed By: #### L 100.0100, L500.4050, L503.0105, L500.4100, L506.1000 #### [facility] [address] [place], [address] Eosinophils/100 WBC (Bld) 0.8 % Normal 0-5 [facility] Comment on above: Performed By: #### L 100.0100, L500.4050, L503.0105, L500.4100, L506.1000 #### [facility] [address] [place], [address] Erythrocyte distribution width (RBC) [Ratio] 13.2 % Normal 11.6-14.6 [facility] Comment on above: Performed By: #### L 100.0100, L500.4050, L503.0105, L500.4100, L506.1000 #### [facility] [address] [place], [address] Hematocrit (Bld) [Volume fraction] 50.8 % High 37-47 [facility] Comment on above: Performed By: #### L 100.0100, L500.4050, L503.0105, L500.4100, L506.1000 #### [facility] [address] [place], [address] Hemoglobin (Bld) [Mass/Vol] 16.1 g/dL High 12.0-15.0 [facility] Comment on above: Performed By: #### L 100.0100, L500.4050, L503.0105, L500.4100, L506.1000 #### [facility] [address] [place], [address] IG% 0.300 Normal 0.0-0.9 [facility] Comment on above: Result Comment: IG% - Immature Granulocytes (promyelocytes, myelocytes and metamyelocytes) > 1% indicates that a LEFT SHIFT is Present. Performed By: #### L 100.0100, L500.4050, L503.0105, L500.4100, L506.1000 #### [facility] [address] [place], [address] Lymphocytes/100 WBC (Bld) 15.6 % Low 19-41 [facility] Comment on above: Performed By: #### L 100.0100, L500.4050, L503.0105, L500.4100, L506.1000 #### [facility] [address] [place], [address] MCH (RBC) [Entitic mass] 30.7 pg Normal 27.0-32.0 [facility] Comment on above: Performed By: #### L 100.0100, L500.4050, L503.0105, L500.4100, L506.1000 #### [facility] [address] [place], [address] MCHC (RBC) [Mass/Vol] 31.7 g/dL Low 32-36 [facility] Comment on above: Performed By: #### L 100.0100, L500.4050, L503.0105, L500.4100, L506.1000 #### [facility] [address] [place], [address] MCV (RBC) [Entitic vol] 96.8 fL Normal 81-99 [facility] Comment on above: Performed By: #### L 100.0100, L500.4050, L503.0105, L500.4100, L506.1000 #### [facility] [address] [place], [address] Monocytes/100 WBC (Bld) 8.1 % Normal 0-10 [facility] Comment on above: Performed By: #### L 100.0100, L500.4050, L503.0105, L500.4100, L506.1000 #### [facility] [address] [place], [address] Neutrophils/100 WBC (Bld) 74.8 % High 47-70 [facility] Comment on above: Performed By: #### L 100.0100, L500.4050, L503.0105, L500.4100, L506.1000 #### [facility] [address] [place], [address] Nucleated RBC (Bld) [#/Vol] 0 10*3/uL Normal 0-5 [facility] Comment on above: Performed By: #### L 100.0100, L500.4050, L503.0105, L500.4100, L506.1000 #### [facility] [address] [place], [address] Platelet mean volume (Bld) [Entitic vol] 9.8 fL Normal 6.2-12.0 [facility] Comment on above: Performed By: #### L 100.0100, L500.4050, L503.0105, L500.4100, L506.1000 #### [facility] [address] [place], [address] Platelets (Bld) [#/Vol] 232 10*3/uL Normal 150-450 [facility] Comment on above: Performed By: #### L 100.0100, L500.4050, L503.0105, L500.4100, L506.1000 #### [facility] [address] [place], [address] RBC (Bld) [#/Vol] 5.25 10*6/uL Normal 4.2-5.4 [facility] Comment on above: Performed By: #### L 100.0100, L500.4050, L503.0105, L500.4100, L506.1000 #### [facility] [address] [place], [address] RDW SD 47.0 fl High 35.1-43.9 [facility] Comment on above: Performed By: #### L 100.0100, L500.4050, L503.0105, L500.4100, L506.1000 #### [facility] [address] [place], [address] WBC (Bld) [#/Vol] 7.7 10*3/uL Normal 4.4-11.0 [facility] Comment on above: Performed By: #### L 100.0100, L500.4050, L503.0105, L500.4100, L506.1000 #### [facility] [address] [place], [address] Comprehensive Metabolic Prof [facility] 09-18-2024 Albumin [Mass/Vol] 4.2 g/dL Normal 3.2-5.0 [facility] Comment on above: Performed By: #### L 100.0100, L500.4050, L503.0105, L500.4100, L506.1000 #### [facility] [address] [place], [address] Albumin/Globulin [Mass ratio] 1.3 {ratio} Normal 0.9-2.4 [facility] Comment on above: Performed By: #### L 100.0100, L500.4050, L503.0105, L500.4100, L506.1000 #### [facility] [address] [place], [address] ALK P 92 U/L Normal 45-117 [facility] Comment on above: Performed By: #### L 100.0100, L500.4050, L503.0105, L500.4100, L506.1000 #### [facility] [address] [place], [address] ALT [Catalytic activity/Vol] 17 U/L Normal 13-56 [facility] Comment on above: Performed By: #### L 100.0100, L500.4050, L503.0105, L500.4100, L506.1000 #### [facility] [address] [place], [address] AST [Catalytic activity/Vol] 17 U/L Normal 15-37 [facility] Comment on above: Performed By: #### L 100.0100, L500.4050, L503.0105, L500.4100, L506.1000 #### [facility] [address] [place], [address] Bilirubin [Mass/Vol] 0.50 mg/dL Normal 0.20-1.00 [facility] Comment on above: Result Comment: For patients on eltrombopag therapy, use of Dimension [place] TBIL is not recommended. Performed By: #### L 100.0100, L500.4050, L503.0105, L500.4100, L506.1000 #### [facility] [address] [place], [address] BUN/CRE 15.6 RATIO Normal 10-20 [facility] Comment on above: Performed By: #### L 100.0100, L500.4050, L503.0105, L500.4100, L506.1000 #### [facility] [address] [place], [address] CA,Total 9.6 mg/dL Normal 8.5-10.1 [facility] Comment on above: Performed By: #### L 100.0100, L500.4050, L503.0105, L500.4100, L506.1000 #### [facility] [address] [place], [address] Chloride [Moles/Vol] 106 mmol/L Normal 98-107 [facility] Comment on above: Performed By: #### L 100.0100, L500.4050, L503.0105, L500.4100, L506.1000 #### [facility] [address] [place], [address] CO2 [Moles/Vol] 28.0 mmol/L Normal 21.0-32.0 [facility] Comment on above: Performed By: #### L 100.0100, L500.4050, L503.0105, L500.4100, L506.1000 #### [facility] [address] [place], [address] Creatinine [Mass/Vol] 0.84 mg/dL Normal 0.55-1.02 [facility] Comment on above: Result Comment: The validity of the calculated GFR GFRAA in patients over 70 years has not been determined. Clinical correlation is essential. Performed By: #### L 100.0100, L500.4050, L503.0105, L500.4100, L506.1000 #### [facility] [address] [place], [address] EST GFR - AA 85 mL/min Normal >60 [facility] Comment on above: Result Comment: Afri can [place] GFR Calc Performed By: #### L 100.0100, L500.4050, L503.0105, L500.4100, L506.1000 #### [facility] [address] [place], [address] GAP 6 Normal 5-15 [facility] Comment on above: Performed By: #### L 100.0100, L500.4050, L503.0105, L500.4100, L506.1000 #### [facility] [address] [place], [address] GFR/1.73 sq M.predicted among non-blacks MDRD (S/P/Bld) [Vol rate/Area] 70 mL/min/{1.73_m2} Normal >60 [facility] Comment on above: Result Comment: Non- GFR Calc Performed By: #### L 100.0100, L500.4050, L503.0105, L500.4100, L506.1000 #### [facility] [address] [place], [address] Globulin (S) [Mass/Vol] 3.2 g/dL Normal 2.2-4.2 [facility] Comment on above: Performed By: #### L 100.0100, L500.4050, L503.0105, L500.4100, L506.1000 #### [facility] [address] [place], [address] Glucose [Mass/Vol] 128 mg/dL High 74-106 [facility] Comment on above: Result Comment: Fast ing Glucose result greater than or equal to 126 mg/dL suggests DIABETES MELLITUS per A.D.A. criteria. Performed By: #### L 100.0100, L500.4050, L503.0105, L500.4100, L506.1000 #### [facility] [address] [place], [address] Potassium [Moles/Vol] 3.3 mmol/L Low 3.5-5.1 [facility] Comment on above: Performed By: #### L 100.0100, L500.4050, L503.0105, L500.4100, L506.1000 #### [facility] [address] [place], [address] Sodium [Moles/Vol] 140 mmol/L Normal 136-145 [facility] Comment on above: Performed By: #### L 100.0100, L500.4050, L503.0105, L500.4100, L506.1000 #### [facility] [address] [place], [address] T PROT 7.4 g/dL Normal 6.4-8.2 [facility] Comment on above: Performed By: #### L 100.0100, L500.4050, L503.0105, L500.4100, L506.1000 #### [facility] [address] [place], [address] Urea nitrogen [Mass/Vol] 13 mg/dL Normal 7-18 [facility] Comment on above: Performed By: #### L 100.0100, L500.4050, L503.0105, L500.4100, L506.1000 #### [facility] [address] [place], [address] Lipid Profileon 09-18-2024 Cholesterol [Mass/Vol] 224 mg/dL High 200 [facility] Comment on above: Result Comment: <200 mg/dL Desirable 200-240 mg/dL Borderline >240 mg/dL High Risk Performed By: #### L 100.0100, L500.4050, L503.0105, L500.4100, L506.1000 #### [facility] [address] [place], [address] Cholesterol in HDL [Mass/Vol] 69 mg/dL Normal [facility] Comment on above: Result Comment: The drugs N-Acetylcysteine and Metamizole may falsely depress this assay. Reference Range HDL <40 mg/dL Low HDL Cholesterol HDL >or= 60 mg/dL High HDL Cholesterol Performed By: #### L 100.0100, L500.4050, L503.0105, L500.4100, L506.1000 #### [facility] [address] [place], [address] Cholesterol in LDL [Mass/Vol] 122 mg/dL Normal 0-130 [facility] Comment on above: Performed By: #### L 100.0100, L500.4050, L503.0105, L500.4100, L506.1000 #### [facility] [address] [place], [address] Cholesterol in VLDL [Mass/Vol] 33 mg/dL Normal 5-40 [facility] Comment on above: Performed By: #### L 100.0100, L500.4050, L503.0105, L500.4100, L506.1000 #### [facility] [address] [place], [address] Triglyceride [Mass/Vol] 167 mg/dL Normal [facility] Comment on above: Result Comment: The drugs N-Acetylcysteine and Metamizole may falsely depress this assay. Serum Triglycerides Reference Interval Normal <150 mg/dL Borderline high 150 - 199 mg/dL High 200 - 499 mg/dL Very High > or = 500 mg/dL Performed By: #### L 100.0100, L500.4050, L503.0105, L500.4100, L506.1000 #### [facility] [address] [place], [address] Vitamin B12on 09-18-2024 Cobalamin (Vitamin B12) [Mass/Vol] pg/mL High 211-911 [facility] Comment on above: Performed By: #### L 100.0100, L500.4050, L503.0105, L500.4100, L506.1000 #### [facility] [address] [place], [address] Vitamin D,25 Hydroxyon 09-18 Vitamin D 25-OH 9.2 ng/mL Normal [facility] Comment on above: Result Comment: Irma min D 25(OH) Status Range Deficiency <20 ng/mL (50nmol/L) Insufficiency 20 - 30 ng/mL (50 - 75 nmol/L) Sufficiency 30 - 100 ng/mL (75 - 250 nmol/L) Toxicity >100 ng/mL (>250 nmol/L) Performed By: #### L 100.0100, L500.4050, L503.0105, L500.4100, L506.1000 #### [facility] [address] [place], [address] Breast Limited Unilateralon 03-01-2024 Breast Limited Unilateral [facility] [address] [place] [address] Breast Limited Unilateral MR#: [id number] Acct: [id number] Name: SHEELA TADEO Rep #: [id number] : 1945 F 78 From: Coleman parker MD PCP: Dr. Amisha Torrez MD Status: [facility] Study: Breast Limited Unilateral Date of Exam: Exam# [id number] Ordering Dr: April Koroma MD [id number] STUDY: ULTRASOUND BREAST - LEFT REASON FOR [...] Amisha Torrez MD; Dr. April Koroma MD Tyre Retreader: Signed Normal [facility] Surgery Specimen Level Rex 10-25-2023 Surgery Specimen Level IV Patient Age/Sex Location Account Attending Physician SHEELA TADEO 77/F [facility] [id number] Dr. April Koroma MD Specimen: [id number] Received: 10/26/23 Status: SHANE [place] Num: [id number] Spec Type: BREAST BX Subm Dr: Dr. [...] 1 minute Fixation Time: 30.5 hours CPT: 48189 Patient Age/Sex Location Account Attending Physician SHEELA TADEO 77/F [facility] [id number] Dr. April Koroma MD Signed (signature on file) Dr. Alfa Hyman MD 10/27/23 1442 Normal [facility] Comment on above: Performed By: #### P MEG #### [facility] [place], [address] Surgery Visit Reporton 10-25 Surgery Visit Report [facility] [address] [place] [address] OFFICE VISIT Date of Service: 10/25/23 MR#: [id number] Acct: [id number] Name: SHEELA TADEO Rep #: [id number] : 1945 Provider: Dr. April wang MD Age/Sex: 77/F Location: [facility] Status: Signed Intake Vital Signs 03/12/23 08:28 [...] mg PO DAILY 10/25/23 [History Confirmed 10/25/23] [facility] Medical History HTN (hypertension) Macular degeneration [...] No diseq (more content not included)... Normal [facility] Absolute lymphocyte countOrd ered By: Amisha Torrez on 08-14-2023 Lymphocytes Auto (Unsp spec) [#/Vol] 2.15 10*3/uL 0.83-4.51 [facility] Basophil percentageOrdered B y: Amisha Torrez on 08-14-2023 Basophils/100 WBC (Bld) 0.8 % 0-1 [facility] Bilirubin [Mass/Vol] 0.30 mg/dL 0.20-1.00 [facility] Comment on above: For patients on eltr ombopag therapy, use of Dimension [place] TBIL is not recommended. Chloride [Moles/Vol] 108 mmol/L 98-107 [facility] Cholesterol [Mass/Vol] 152 mg/dL <200 [facility] Comment on above: <200 mg/dL Desirable 200-240 mg/dL Borderline >240 mg/dL High Risk Eosinophils/100 WBC (Bld) 3.2 % 0-5 [facility] Glucose [Mass/Vol] 98 mg/dL 74-106 [facility] Neutrophils (Bld) [#/Vol] 3.2 10*3/uL 2.0-7.7 [facility] Neutrophils/100 WBC (Bld) 52.4 % 47-70 [facility] Potassium [Moles/Vol] 3.6 mmol/L 3.5-5.1 [facility] Protein [Mass/Vol] 7.1 g/dL 6.4-8.2 [facility] Sodium [Moles/Vol] 142 mmol/L 136-145 [facility] Triglyceride [Mass/Vol] 115 mg/dL <199 [facility] Comment on above: The drugs N-Acetylcy steine and Metamizole may falsely depress this assay.Serum Triglycerides Reference Interval Normal <150 mg/dL Borderline high 150 - 199 mg/dL High 200 - 499 mg/dL Very High > or = 500 mg/dL WBC (Bld) [#/Vol] 6.2 10*3/uL 4.4-11.0 [facility] Blood erythrocytes count (nu mber/volume)Ordered By: Amisha Torrez on 08-14-2023 RBC (Bld) [#/Vol] 5.35 10*6/uL 4.2-5.4 [facility] Blood hemoglobin measurement (mass/volume)Ordered By: Amisha Torrez on 08-14-2023 Hemoglobin (Bld) [Mass/Vol] 16.2 g/dL 12.0-15.0 [facility] Blood lymphocytes/100 leukoc ytesOrdered By: Amisha Torrez on 08-14-2023 Lymphocytes/100 WBC (Bld) 34.8 % 19-41 [facility] Blood monocytes/100 leukocyt esOrdered By: Amisha Torrez on 08-14-2023 Monocytes/100 WBC (Bld) 8.3 % 0-10 [facility] Blood platelet mean volumeOr dered By: Amisha Torrez on 08-14-2023 Platelet mean volume (Bld) [Entitic vol] 9.6 fL 6.2-12.0 [facility] Determination of erythrocyte mean corpuscular volume (MCV)Ordered By: Amisha Torrez on 08-14-2023 MCV (RBC) [Entitic vol] 99.3 fL 81-99 [facility] Hematocrit Auto (Bld) [Volum e fraction]Ordered By: Amisha Torrez on 08-14-2023 Hematocrit (Bld) [Volume fraction] 53.1 % 37-47 [facility] Laboratory - Chemistry and C hemistry - challengeOrdered By: Amisha Torrez on 08-14-2023 ALP [Catalytic activity/Vol] 133 U/L 45-117 [facility] ALT [Catalytic activity/Vol] 23 U/L 13-56 [facility] CO2 [Moles/Vol] 26.0 mmol/L 21.0-32.0 [facility] Cobalamin (Vitamin B12) [Mass/Vol] 248 pg/mL 211-911 [facility] Globulin (S) [Mass/Vol] 3.2 g/dL 2.2-4.2 [facility] Urea nitrogen/Creatinine [Mass ratio] 17.7 mg/mg 10-20 [facility] - Hematology and Cell countsOrdered By: Amisha Torrez on 08-14-2023 Erythrocyte distribution width (RBC) [Entitic vol] 50.4 fL 35.1-43.9 [facility] Erythrocyte distribution width (RBC) [Ratio] 13.7 % 11.6-14.6 [facility] Immature granulocytes/100 WBC (Bld) 0.500 % 0.0-0.9 [facility] Comment on above: IG% - Immature Granu locytes (promyelocytes, myelocytes and metamyelocytes) > 1% indicates that a LEFT SHIFT is Present. MCH (RBC) [Entitic mass] 30.3 pg 27.0-32.0 [facility] Nucleated RBC/100 WBC (Bld) [Ratio] 0 % 0-5 [facility] MCHC Auto (RBC) [Mass/Vol]Or dered By: Amisha Torrez on 08-14-2023 MCHC (RBC) [Mass/Vol] 30.5 g/dL 32-36 [facility] No Panel InformationOrdered By: Amisha Torrez on 08-14-2023 Estimated GFR (MDRD) Amer 78 mL/min >60 [facility] Comment on above: GFR Calc Estimated GFR (MDRD) Non-Af Amer 64 mL/min >60 [facility] Comment on above: Non- GFR Calc Vitamin D 25-Hydroxy 16.3 ng/mL [facility] Comment on above: Vitamin D 25([place]) Sta tus Range Deficiency <20 ng/mL (50nmol/L) Insufficiency 20 - 30 ng/mL (50 - 75 nmol/L) Sufficiency 30 - 100 ng/mL (75 - 250 nmol/L) Toxicity >100 ng/mL (>250 nmol/L) Platelets bldOrdered By: Jono Torrez on 08-14-2023 Platelets (Bld) [#/Vol] 253 10*3/uL 150-450 [facility] Serum or plasma albumin guillermo urement (mass/volume)Ordered By: Amisha Torrez on 08-14-2023 Albumin [Mass/Vol] 3.9 g/dL 3.2-5.0 [facility] Serum or plasma albumin/glob ulin mass ratioOrdered By: Amisha Torrez on 08-14-2023 Albumin/Globulin [Mass ratio] 1.2 {ratio} 0.9-2.4 [facility] Serum or plasma calcium guillermo urement (mass/volume)Ordered By: Amisha Torrez on 08-14-2023 Calcium [Mass/Vol] 9.5 mg/dL 8.5-10.1 [facility] Serum or plasma cholesterol in HDL measurement (mass/volume)Ordered By: Amisha Torrez on 08-14-2023 Cholesterol in HDL [Mass/Vol] 87 mg/dL >40 [facility] Comment on above: The drugs N-Acetylcy steine and Metamizole may falsely depress this assay. Reference Range HDL <40 mg/dL Low HDL Cholesterol HDL >or= 60 mg/dL High HDL Cholesterol Serum or plasma cholesterol in VLDL measurement (mass/volume)Ordered By: Amisha Torrez on 08-14-2023 Cholesterol in VLDL [Mass/Vol] 23 mg/dL 5-40 [facility] Serum or plasma creatinine m easurement (mass/volume)Ordered By: Amisha Torrez on 08-14-2023 Creatinine [Mass/Vol] 0.90 mg/dL 0.55-1.02 [facility] Comment on above: The validity of the calculated GFR & GFRAA in patients over 70 years has not been determined. Clinical correlation is essential. Serum or plasma low density lipoprotein (LDL) cholesterol measurement (mass/volume)Ordered By: Amisha Torrez on 08-14-2023 Cholesterol in LDL [Mass/Vol] 42 mg/dL 0-130 [facility] Serum or plasma urea nitroge n measurement (mass/volume)Ordered By: Amisha Torrez on 08-14-2023 Urea nitrogen [Mass/Vol] 16 mg/dL 7-18 [facility] Thin prep Papanicolaou smear with manual screeningOrdered By: Amisha Torrez on 08-14-2023 Thin prep Papanicolaou smear with manual screening 21 U/L 15-37 [facility] Thin prep Papanicolaou smear with manual screening 8 5-15 [facility] CNOVon 07-20-2023 CNOV Office Visit (NECVS8) SHEELA TADEO ([id number]) 1945 F Date Time Provider Department 07/20/23 [...] mail PCP: Alonso Obando [address] [facility] [place] [address] CEREBROVASCULAR HISTORY Sheela Tadeo is a 77 [...] part of the assessment. - Face, Velvet, Temple, Marlen, Red Attention: - Repeat in forward [...] - Face 11/06 - Velvet 11/06 - Temple - Marlen - Red 11/06 Orientation - [...] MINUTES. sumatr (more content not included)... Normal [facility] Basophil percentageOrdered B y: Dr. Naranjo on 03-12-2023 Cholesterol [Mass/Vol] 117 mg/dL <200 [facility] Comment on above: <200 mg/dL Desirable 200-240 mg/dL Borderline >240 mg/dL High Risk Triglyceride [Mass/Vol] 88 mg/dL <199 [facility] Comment on above: The drugs N-Acetylcy steine and Metamizole may falsely depress this assay.Serum Triglycerides Reference Interval Normal <150 mg/dL Borderline high 150 - 199 mg/dL High 200 - 499 mg/dL Very High > or = 500 mg/dL Serum or plasma cholesterol in HDL measurement (mass/volume)Ordered By: Dr. Naranjo on 03-12-2023 Cholesterol in HDL [Mass/Vol] 67 mg/dL >40 [facility] Comment on above: The drugs N-Acetylcy steine and Metamizole may falsely depress this assay. Reference Range HDL <40 mg/dL Low HDL Cholesterol HDL >or= 60 mg/dL High HDL Cholesterol Serum or plasma cholesterol in VLDL measurement (mass/volume)Ordered By: Dr. Naranjo on 03-12-2023 Cholesterol in VLDL [Mass/Vol] 18 mg/dL 5-40 [facility] Serum or plasma low density lipoprotein (LDL) cholesterol measurement (mass/volume)Ordered By: Dr. Naranjo on 03-12-2023 Cholesterol in LDL [Mass/Vol] 32 mg/dL 0-130 [facility] Absolute lymphocyte countOrd ered By: Dr. Azevedo on 03-11-2023 Lymphocytes Auto (Unsp spec) [#/Vol] 1.95 10*3/uL 0.83-4.51 [facility] Basophil percentageOrdered B y: Dr. Naranjo on 03-11-2023 Basophil percentage 0-5 SEEN /hpf 0-5 [facility] Basophil percentageOrdered B y: Dr. Azevedo on 03-11-2023 Basophils/100 WBC (Bld) 0.7 % 0-1 [facility] Chloride [Moles/Vol] 106 mmol/L 98-107 [facility] Eosinophils/100 WBC (Bld) 1.6 % 0-5 [facility] Glucose [Mass/Vol] 116 mg/dL 74-106 [facility] Comment on above: Fasting Glucose resu lt from 100 to 125 mg/dL suggests IMPAIRED HOMEOSTASIS per A.D.A. criteria. Neutrophils (Bld) [#/Vol] 4.3 10*3/uL 2.0-7.7 [facility] Neutrophils/100 WBC (Bld) 61.7 % 47-70 [facility] Potassium [Moles/Vol] 3.9 mmol/L 3.5-5.1 [facility] Sodium [Moles/Vol] 141 mmol/L 136-145 [facility] WBC (Bld) [#/Vol] 7.0 10*3/uL 4.4-11.0 [facility] Bilirubin Test strip Ql (U)O rdered By: Dr. Naranjo on 03-11-2023 Bilirubin Ql (U) Negative Negative [facility] Blood erythrocytes count (nu mber/volume)Ordered By: Dr. Azevedo on 03-11-2023 RBC (Bld) [#/Vol] 4.85 10*6/uL 4.2-5.4 [facility] Blood hemoglobin measurement (mass/volume)Ordered By: Dr. Azevedo on 03-11-2023 Hemoglobin (Bld) [Mass/Vol] 15.6 g/dL 12.0-15.0 [facility] Blood lymphocytes/100 leukoc ytesOrdered By: Dr. Azevedo on 03-11-2023 Lymphocytes/100 WBC (Bld) 27.8 % 19-41 [facility] Blood monocytes/100 leukocyt esOrdered By: Dr. Azevedo on 03-11-2023 Monocytes/100 WBC (Bld) 8.1 % 0-10 [facility] Blood platelet mean volumeOr dered By: Dr. Azevedo on 03-11-2023 Platelet mean volume (Bld) [Entitic vol] 8.9 fL 6.2-12.0 [facility] Determination of erythrocyte mean corpuscular volume (MCV)Ordered By: Dr. Azevedo on 03-11-2023 MCV (RBC) [Entitic vol] 97.9 fL 81-99 [facility] Glucose Glucometer (BldC) [M ass/Vol]Ordered By: Dr. Azevedo on 03-11-2023 Glucose [Mass/Vol] 110 mg/dL 74-106 [facility] Comment on above: MANAGEMENT OF PATIEN T CARE PER NURSING PROTOCOL Hematocrit Auto (Bld) [Volum e fraction]Ordered By: Dr. Azevedo on 03-11-2023 Hematocrit (Bld) [Volume fraction] 47.5 % 37-47 [facility] INR in Blood by Coagulation assayOrdered By: Dr. Azevedo on 05-06-2023 INR Coag (Bld) [Relative time] 0.9 {INR} [facility] Ketones Test strip Ql (U)Ord ered By: Dr. Naranjo on 03-11-2023 Ketones Ql (U) Negative Negative [facility] Laboratory - Chemistry and C hemistry - challengeOrdered By: Dr. Azevedo on 03-11-2023 CO2 [Moles/Vol] 27.0 mmol/L 21.0-32.0 [facility] Urea nitrogen/Creatinine [Mass ratio] 18.8 mg/mg 10-20 [facility] Laboratory - CoagulationOrde red By: Dr. Azevedo on 03-11-2023 aPTT Coag (Bld) [Time] 26.6 s 24.1-36.2 [facility] PT Coag (PPP) [Time] 12.0 s 11.7-14.9 [facility] Laboratory - Hematology and Cell countsOrdered By: Dr. Azevedo on 03-11-2023 Erythrocyte distribution width (RBC) [Entitic vol] 47.3 fL 35.1-43.9 [facility] Erythrocyte distribution width (RBC) [Ratio] 13.2 % 11.6-14.6 [facility] Immature granulocytes/100 WBC (Bld) 0.100 % 0.0-0.9 [facility] Comment on above: IG% - Immature Granu locytes (promyelocytes, myelocytes and metamyelocytes) > 1% indicates that a LEFT SHIFT is Present. MCH (RBC) [Entitic mass] 32.2 pg 27.0-32.0 [facility] Nucleated RBC/100 WBC (Bld) [Ratio] 0 % 0-5 [facility] MCHC Auto (RBC) [Mass/Vol]Or dered By: Dr. Azevedo on 03-11-2023 MCHC (RBC) [Mass/Vol] 32.8 g/dL 32-36 [facility] Mucus LM Ql (Urine sed)Order ed By: Dr. Naranjo on 03-11-2023 Mucus Ql (Urine sed) 0 SEEN /hpf [facility] Nitrite Test strip Ql (U)Ord ered By: Dr. Naranjo on 03-11-2023 Nitrite Ql (U) Negative Negative [facility] No Panel InformationOrdered By: Dr. Naranjo on 03-11-2023 Troponin I High Sensitivity 29 pg/mL 3.0-54.0 [facility] Comment on above: Please Note: New Erika t Units and Gender Specific Reference Ranges. For more information see Policy Stat Procedure [place] High Sensitivity Troponin (TNIH) and attachments. No Panel InformationOrdered By: Dr. Azevedo on 03-11-2023 Estimated Creatinine Clearance Calc 31.48 ml/min [facility] Estimated GFR (MDRD) Amer 61 mL/min >60 [facility] Comment on above: GFR Calc Estimated GFR (MDRD) Non-Af Amer 50 mL/min >60 [facility] Comment on above: Non- GFR Calc Troponin I High Sensitivity 32 pg/mL 3.0-54.0 [facility] Comment on above: Please Note: New Erika t Units and Gender Specific Reference Ranges. For more information see Policy Stat Procedure [place] High Sensitivity Troponin (TNIH) and attachments. Platelets bldOrdered By: Dr. Azevedo on 03-11-2023 Platelets (Bld) [#/Vol] 267 10*3/uL 150-450 [facility] Protein Test strip Ql (U)Ord ered By: Dr. Naranjo on 03-11-2023 Protein Ql (U) 15 mg/dl Negative [facility] Serum or plasma calcium guillermo urement (mass/volume)Ordered By: Dr. Azevedo on 03-11-2023 Calcium [Mass/Vol] 10.6 mg/dL 8.5-10.1 [facility] Serum or plasma creatinine m easurement (mass/volume)Ordered By: Dr. Azevedo on 03-11-2023 Creatinine [Mass/Vol] 1.12 mg/dL 0.55-1.02 [facility] Comment on above: The validity of the calculated GFR & GFRAA in patients over 70 years has not been determined. Clinical correlation is essential. Serum or plasma urea nitroge n measurement (mass/volume)Ordered By: Dr. Azevedo on 03-11-2023 Urea nitrogen [Mass/Vol] 21 mg/dL 7-18 [facility] Squamous epithelial cells de tection in urine sediment by light microscopyOrdered By: Dr. Naranjo on 03-11-2023 Epithelial cells.squamous LM Ql (Urine sed) 0 SEEN /hpf 5-10 [facility] Thin prep Papanicolaou smear with manual screeningOrdered By: Dr. Azevedo on 03-11-2023 Thin prep Papanicolaou smear with manual screening 8 5-15 [facility] Urine blood detectionOrdered By: Dr. Naranjo on 03-11-2023 RBC Ql (U) 10 /ul Negative [facility] RBC Ql (U) 0-5 SEEN /hpf 0-5 [facility] Urine clarityOrdered By: Dr. Naranjo on 03-11-2023 Clarity (U) Clear Clear [facility] Urine color determinationOrd ered By: Dr. Naranjo on 03-11-2023 Color (U) Yellow Yellow [facility] Urine glucose detectionOrder ed By: Dr. Naranjo on 03-11-2023 Glucose Ql (U) Normal mg/dl Normal [facility] Urine leukocyte esterase det ection by dipstickOrdered By: Dr. Naranjo on 03-11-2023 Leukocyte esterase Test strip Ql (U) 25 /ul Negative [facility] Urine pHOrdered By: Dr. Tabitha urbano on 03-11-2023 pH (U) 6.5 [pH] 5.0 - 8.0 [facility] Urine sediment bacteria coun t by microscopy (number/high power field)Ordered By: Dr. Naranjo on 03-11-2023 Bacteria LM.HPF (Urine sed) [#/Area] 0 /[HPF] None Seen [facility] Urine specific gravity measu rementOrdered By: Dr. Naranjo on 03-11-2023 Specific gravity (U) [Rel density] 1.015 1.002-1.030 [facility] Urobilinogen Auto test strip Ql (U)Ordered By: Dr. Naranjo on 03-11-2023 Urobilinogen Ql (U) Normal mg/dl Normal [facility] CNTHERAPYon 02-28-2023 CNTHERAPY OT/PT/Speech Visit (AKOTLK) CARLYLESHEELA Amilcar ([id number]) 1945 F Date Time Provider Department 02/28/23 10:45 AM KEN GABRIEL Date Time Provider Department Center 02/28/2023 10:45 AM [id number] GABRIEL ANALIA ZAMBRANO Reason for Visit: OT [...] one(1) tablet twice daily. Letter Dani Multani [facility] [place] 02-17-2023 CNPN Telephone (NECVS8) CARLYLESHEELA ([id number]) 1945 F Date Time Provider Department 02/17/23 [...] Carlyle, 1945). Yes Number to return call [phone] Reason for Call: [facility] Call Center is calling to assist patient with Sooner appointment with Dr. Newberry. He states patient is being referred to Dr. Newberry by Dr. Chiquis Haider. Patient Dx TIA, Brain Lesion and according to family friend a Director Of Informatics who was on 3-way. Patient has complex vascular issue. Patient currently schedule 05/15. Please advise whether patient can be scheduled in a new slot for possible sooner appointment. Please review and advise Neelam Jeronimo. Thanks. Thank you calling [facility] [place]. You will receive a return call within [...] Encounter Status:Closed by NEELAM HINOJOSA on 04/05/23 [facility] CNTHERAPYon 02-15-2023 CNTHERAPY OT/PT/Speech Visit (AKOTLK) SHEELA TADEO ([id number]) 1945 F Date Time Provider Department 02/15/23 10:00 AM KEN GABRIEL Date Time Provider Department [place] 02/15/2023 10:00 AM [id number] GABRIEL Reason for Visit: OT EVAL [748] [...] TAB) Take one(1) tablet twice daily. Normal [facility] CNOVon 01-25-2023 [facility] Office Visit (CVAKPO) SHEELA TADEO ([id number]) 1945 F Date Time Provider Department 01/25/23 10:00 AM CHIQUIS HAIDER During your visit today, we recorded the following information about you: Pulse Blood pressure Weight Height 90/minute 151/101 45.4 kg 1.626 m Chiquis Haider MD 07/07/2023 9:[facility] Consultation is requested by: SELF PCP: Alonso Obando [address] [place] [address] [place] [address] CEREBROVASCULAR HISTORY Sheela Tadeo is a 77 [...] vibration. Coordination: Rapid alternating movements symmetric bilaterally. Wridxg-ma-eghg, ajjb-as-eowz without dysmetria bilaterally. Gait: Narrow-based, normal spaced and stable without assistance. Tandem gait is stable. LABS Cholesterol: No results found for: CHOL LDL Chol, [place] (mg/dL) Date Value 10/15/2010 104 No results [...] ? SD (more content not included)... Normal [facility] [place] 01-25-2023 LUCIA Telephone (NEAGAK) SHEELA TADEO ([id number]) 1945 F Date Time Provider Department 01/25/23 CHIQUIS HAIDER During your visit today, we recorded the following information about you: [employer] 01/25/2023 12:26 PM Signed Submitted through portal Consult to Occupational Therapy #[id number] to be scheduled in the [place] location AND Consult to Neurology #[id number] to be scheduled in [facility] with La Krueger [facility] 02/09/2023 4:11 PM Signed Received through portal Consult to Occupational Therapy #[id number] for Driving Evaluation has been scheduled 02/15/23 in [place] with Ken Gabriel [facility] 03/09/2023 2:08 PM Signed Received through portal Consult to Neurology #[id number], patient has been scheduled with Dr. La Newberry on 05/15/23 in [facility] Allergies As of Date: 01/25/2023 (No Known [...] Status:Closed by INDRA MORALES on 02/09/23 Normal [facility] Nuclear Ab IA Ql (S)on 01-25 PABLO BY EIA, QUAL Negative Normal Negative [facility] Comment on above: Order Comment: Speci men Type: BLOOD SPECIMEN Ordering Facility: [facility] Address: [address] [place] [address] Result Comment: The qualitative antinuclear antibody screen test performed using enzyme immunoassay including the following antigens: dsDNA, histones, SS-A, SS-B, Sm, Sm/JOB TRAINING SPECIALIST, Scl-70, Heather-1, and centromeric antigens. Performed By: #### 4 [id number] #### [facility] CLIA [id number] [address] [place] [address] [place] Rheumatoid fact SerPl-aCncon 01-25-2023 Rheumatoid factor Qn [IU]/mL Normal <16 [facility] Comment on above: Order Comment: Speci men Type: BLOOD SPECIMEN Ordering Facility: [facility] Address: [address] [place] [address] Performed By: #### 1 [id number] #### [facility] CLIA [id number] [address] [place] [address] [place] Absolute lymphocyte countOrd ered By: Dr. Ruffin on 01-14-2023 Lymphocytes Auto (Unsp spec) [#/Vol] 2.28 10*3/uL 0.83-4.51 [facility] Basophil percentageOrdered B y: Dr. Ruffin on 01-14-2023 Basophils/100 WBC (Bld) 1.2 % 0-1 [facility] Chloride [Moles/Vol] 110 mmol/L 98-107 [facility] Cholesterol [Mass/Vol] 172 mg/dL <200 [facility] Comment on above: <200 mg/dL Desirable 200-240 mg/dL Borderline >240 mg/dL High Risk Eosinophils/100 WBC (Bld) 4.6 % 0-5 [facility] Glucose [Mass/Vol] 63 mg/dL 74-106 [facility] Neutrophils (Bld) [#/Vol] 2.5 10*3/uL 2.0-7.7 [facility] Neutrophils/100 WBC (Bld) 44.7 % 47-70 [facility] Potassium [Moles/Vol] 3.3 mmol/L 3.5-5.1 [facility] Sodium [Moles/Vol] 145 mmol/L 136-145 [facility] Triglyceride [Mass/Vol] 180 mg/dL <199 [facility] Comment on above: The drugs N-Acetylcy steine and Metamizole may falsely depress this assay.Serum Triglycerides Reference Interval Normal <150 mg/dL Borderline high 150 - 199 mg/dL High 200 - 499 mg/dL Very High > or = 500 mg/dL WBC (Bld) [#/Vol] 5.6 10*3/uL 4.4-11.0 [facility] Blood erythrocytes count (nu mber/volume)Ordered By: Dr. Ruffin on 01-14-2023 RBC (Bld) [#/Vol] 4.18 10*6/uL 4.2-5.4 [facility] Blood hemoglobin measurement (mass/volume)Ordered By: Dr. Ruffin on 01-14-2023 Hemoglobin (Bld) [Mass/Vol] 13.3 g/dL 12.0-15.0 [facility] Blood lymphocytes/100 leukoc ytesOrdered By: Dr. Ruffin on 01-14-2023 Lymphocytes/100 WBC (Bld) 40.4 % 19-41 [facility] Blood monocytes/100 leukocyt esOrdered By: Dr. Ruffin on 01-14-2023 Monocytes/100 WBC (Bld) 8.7 % 0-10 [facility] Blood platelet mean volumeOr dered By: Dr. Ruffin on 01-14-2023 Platelet mean volume (Bld) [Entitic vol] 9.0 fL 6.2-12.0 [facility] Determination of erythrocyte mean corpuscular volume (MCV)Ordered By: Dr. Ruffin on 01-14-2023 MCV (RBC) [Entitic vol] 99.8 fL 81-99 [facility] Hematocrit Auto (Bld) [Volum e fraction]Ordered By: Dr. Ruffin on 01-14-2023 Hematocrit (Bld) [Volume fraction] 41.7 % 37-47 [facility] Laboratory - Chemistry and C hemistry - challengeOrdered By: Dr. Ruffin on 01-14-2023 CO2 [Moles/Vol] 28.0 mmol/L 21.0-32.0 [facility] Urea nitrogen/Creatinine [Mass ratio] 27.5 mg/mg 10-20 [facility] Laboratory - Hematology and Cell countsOrdered By: Dr. Ruffin on 01-14-2023 Erythrocyte distribution width (RBC) [Entitic vol] 51.5 fL 35.1-43.9 [facility] Erythrocyte distribution width (RBC) [Ratio] 14.1 % 11.6-14.6 [facility] Immature granulocytes/100 WBC (Bld) 0.400 % 0.0-0.9 [facility] Comment on above: IG% - Immature Granu locytes (promyelocytes, myelocytes and metamyelocytes) > 1% indicates that a LEFT SHIFT is Present. MCH (RBC) [Entitic mass] 31.8 pg 27.0-32.0 [facility] Nucleated RBC/100 WBC (Bld) [Ratio] 0 % 0-5 [facility] MCHC Auto (RBC) [Mass/Vol]Or dered By: Dr. Ruffin on 01-14-2023 MCHC (RBC) [Mass/Vol] 31.9 g/dL 32-36 [facility] No Panel InformationOrdered By: Dr. Ruffin on 01-14-2023 Estimated Creatinine Clearance Calc 34.55 ml/min [facility] Estimated GFR (MDRD) Amer 94 mL/min >60 [facility] Comment on above: GFR Calc Estimated GFR (MDRD) Non-Af Amer 78 mL/min >60 [facility] Comment on above: Non- GFR Calc Platelets bldOrdered By: Dr. Ruffin on 01-14-2023 Platelets (Bld) [#/Vol] 302 10*3/uL 150-450 [facility] Serum or plasma calcium guillermo urement (mass/volume)Ordered By: Dr. Ruffin on 01-14-2023 Calcium [Mass/Vol] 8.5 mg/dL 8.5-10.1 [facility] Serum or plasma cholesterol in HDL measurement (mass/volume)Ordered By: Dr. Ruffin on 01-14-2023 Cholesterol in HDL [Mass/Vol] 56 mg/dL >40 [facility] Comment on above: The drugs N-Acetylcy steine and Metamizole may falsely depress this assay. Reference Range HDL <40 mg/dL Low HDL Cholesterol HDL >or= 60 mg/dL High HDL Cholesterol Serum or plasma cholesterol in VLDL measurement (mass/volume)Ordered By: Dr. Ruffin on 01-14-2023 Cholesterol in VLDL [Mass/Vol] 36 mg/dL 5-40 [facility] Serum or plasma creatinine m easurement (mass/volume)Ordered By: Dr. Ruffin on 01-14-2023 Creatinine [Mass/Vol] 0.76 mg/dL 0.55-1.02 [facility] Comment on above: The validity of the calculated GFR & GFRAA in patients over 70 years has not been determined. Clinical correlation is essential. Serum or plasma low density lipoprotein (LDL) cholesterol measurement (mass/volume)Ordered By: Dr. Ruffin on 01-14-2023 Cholesterol in LDL [Mass/Vol] 80 mg/dL 0-130 [facility] Serum or plasma urea nitroge n measurement (mass/volume)Ordered By: Dr. Ruffin on 01-14-2023 Urea nitrogen [Mass/Vol] 21 mg/dL 7-18 [facility] Thin prep Papanicolaou smear with manual screeningOrdered By: Dr. Ruffin on 01-14-2023 Thin prep Papanicolaou smear with manual screening 7 5-15 [facility] Glucose Glucometer (BldC) [M ass/Vol]Ordered By: Dr. Ruffin on 01-13-2023 Glucose [Mass/Vol] 96 mg/dL 74-106 [facility] Comment on above: MANAGEMENT OF PATIEN T CARE PER NURSING PROTOCOL INR in Blood by Coagulation assayOrdered By: Dr. Munguia on 01-13-2023 INR Coag (Bld) [Relative time] 1.0 {INR} [facility] Laboratory - CoagulationOrde red By: Dr. Munguia on 01-13-2023 aPTT Coag (Bld) [Time] 24.0 s 24.1-36.2 [facility] PT Coag (PPP) [Time] 12.6 s 11.7-14.9 [facility] No Panel InformationOrdered By: Dr. Munguia on 01-13-2023 Troponin I High Sensitivity 23 pg/mL 3.0-54.0 [facility] Comment on above: Please Note: New Erika t Units and Gender Specific Reference Ranges. For more information see Policy Stat Procedure [place] High Sensitivity Troponin (TNIH) and attachments. Absolute lymphocyte counton 09-14-2022 Lymphocytes Auto (Unsp spec) [#/Vol] 1.81 10*3/uL 0.83-4.51 [facility] Work Phone: Basophil percentageon 2021 Basophils/100 WBC (Bld) 0.4 % 0-1 [facility] Work Phone: Bilirubin [Mass/Vol] 0.30 mg/dL 0.20-1.00 [facility] Work Phone: Comment on above: For patients on eltr ombopag therapy, use of Dimension [place] TBIL is not recommended. Chloride [Moles/Vol] 110 mmol/L 98-107 [facility] Work Phone: Cholesterol [Mass/Vol] 219 mg/dL <200 [facility] Work Phone: Comment on above: <200 mg/dL Desirable 200-240 mg/dL Borderline >240 mg/dL High Risk Eosinophils/100 WBC (Bld) 6.7 % 0-5 [facility] Work Phone: Glucose [Mass/Vol] 96 mg/dL 74-106 [facility] Work Phone: Neutrophils (Bld) [#/Vol] 5.1 10*3/uL 2.0-7.7 [facility] Work Phone: Neutrophils/100 WBC (Bld) 61.6 % 47-70 [facility] Work Phone: Potassium [Moles/Vol] 3.7 mmol/L 3.5-5.1 [facility] Work Phone: Protein [Mass/Vol] 7.2 g/dL 6.4-8.2 [facility] Work Phone: Sodium [Moles/Vol] 142 mmol/L 136-145 [facility] Work Phone: Triglyceride [Mass/Vol] 166 mg/dL <199 [facility] Work Phone: Comment on above: The drugs N-Acetylcy steine and Metamizole may falsely depress this assay.Serum Triglycerides Reference Interval Normal <150 mg/dL Borderline high 150 - 199 mg/dL High 200 - 499 mg/dL Very High > or = 500 mg/dL WBC (Bld) [#/Vol] 8.2 10*3/uL 4.4-11.0 [facility] Work Phone: Blood erythrocytes count (nu mber/volume)on 09-14-2022 RBC (Bld) [#/Vol] 4.95 10*6/uL 4.2-5.4 [facility] Work Phone: Blood hemoglobin measurement (mass/volume)on 09-14-2022 Hemoglobin (Bld) [Mass/Vol] 15.1 g/dL 12.0-15.0 [facility] Work Phone: Blood lymphocytes/100 leukoc yteson 09-14-2022 Lymphocytes/100 WBC (Bld) 22.0 % 19-41 [facility] Work Phone: Blood monocytes/100 leukocyt eson 09-14-2022 Monocytes/100 WBC (Bld) 9.1 % 0-10 [facility] Work Phone: Blood platelet mean volumeon 09-14-2022 Platelet mean volume (Bld) [Entitic vol] 9.4 fL 6.2-12.0 [facility] Work Phone: Determination of erythrocyte mean corpuscular volume (MCV)on 09-14-2022 MCV (RBC) [Entitic vol] 97.6 fL 81-99 [facility] Work Phone: Hematocrit Auto (Bld) [Volum e fraction]on 09-14-2022 Hematocrit (Bld) [Volume fraction] 48.3 % 37-47 [facility] Work Phone: Laboratory - Chemistry and C hemistry - challengeon 09-14-2022 ALP [Catalytic activity/Vol] 97 U/L 45-117 [facility] Work Phone: ALT [Catalytic activity/Vol] 15 U/L 13-56 [facility] Work Phone: CO2 [Moles/Vol] 27.0 mmol/L 21.0-32.0 [facility] Work Phone: Globulin (S) [Mass/Vol] 3.5 g/dL 2.2-4.2 [facility] Work Phone: Urea nitrogen/Creatinine [Mass ratio] 22.5 mg/mg 10-20 [facility] Work Phone: Laboratory - Hematology and Cell countson 09-14-2022 Erythrocyte distribution width (RBC) [Entitic vol] 48.9 fL 35.1-43.9 [facility] Work Phone: Erythrocyte distribution width (RBC) [Ratio] 13.5 % 11.6-14.6 [facility] Work Phone: Immature granulocytes/100 WBC (Bld) 0.200 % 0.0-0.9 [facility] Work Phone: Comment on above: IG% - Immature Granu locytes (promyelocytes, myelocytes and metamyelocytes) > 1% indicates that a LEFT SHIFT is Present. MCH (RBC) [Entitic mass] 30.5 pg 27.0-32.0 [facility] Work Phone: Nucleated RBC/100 WBC (Bld) [Ratio] 0 % 0-5 [facility] Work Phone: MCHC Auto (RBC) [Mass/Vol]on 09-14-2022 MCHC (RBC) [Mass/Vol] 31.3 g/dL 32-36 [facility] Work Phone: No Panel Informationon 09-14 Estimated GFR (MDRD) Amer 75 mL/min >60 [facility] Work Phone: Comment on above: GFR Calc Estimated GFR (MDRD) Non-Af Amer 62 mL/min >60 [facility] Work Phone: Comment on above: Non- GFR Calc Platelets bldon 09-14-2022 Platelets (Bld) [#/Vol] 253 10*3/uL 150-450 [facility] Work Phone: Serum or plasma albumin guillermo urement (mass/volume)on 09-14-2022 Albumin [Mass/Vol] 3.7 g/dL 3.2-5.0 [facility] Work Phone: Serum or plasma albumin/glob ulin mass ratioon 09-14-2022 Albumin/Globulin [Mass ratio] 1.1 {ratio} 0.9-2.4 [facility] Work Phone: Serum or plasma calcium guillermo urement (mass/volume)on 09-14-2022 Calcium [Mass/Vol] 9.6 mg/dL 8.5-10.1 [facility] Work Phone: Serum or plasma cholesterol in HDL measurement (mass/volume)on 09-14-2022 Cholesterol in HDL [Mass/Vol] 77 mg/dL >40 [facility] Work Phone: Comment on above: The drugs N-Acetylcy steine and Metamizole may falsely depress this assay. Reference Range HDL <40 mg/dL Low HDL Cholesterol HDL >or= 60 mg/dL High HDL Cholesterol Serum or plasma cholesterol in VLDL measurement (mass/volume)on 09-14-2022 Cholesterol in VLDL [Mass/Vol] 33 mg/dL 5-40 [facility] Work Phone: Serum or plasma creatinine m easurement (mass/volume)on 09-14-2022 Creatinine [Mass/Vol] 0.93 mg/dL 0.55-1.02 [facility] Work Phone: Comment on above: The validity of the calculated GFR & GFRAA in patients over 70 years has not been determined. Clinical correlation is essential. Serum or plasma low density lipoprotein (LDL) cholesterol measurement (mass/volume)on 09-14-2022 Cholesterol in LDL [Mass/Vol] 109 mg/dL 0-130 [facility] Work Phone: Serum or plasma urea nitroge n measurement (mass/volume)on 09-14-2022 Urea nitrogen [Mass/Vol] 21 mg/dL 7-18 [facility] Work Phone: Thin prep Papanicolaou smear with manual screeningon 09-14-2022 Thin prep Papanicolaou smear with manual screening 19 U/L 15-37 [facility] Work Phone: Thin prep Papanicolaou smear with manual screening 5 5-15 [facility] Work Phone: Basophil percentageon 2021 Chloride [Moles/Vol] 109 mmol/L 98-107 [facility] Work Phone: Cholesterol [Mass/Vol] 167 mg/dL <200 [facility] Work Phone: Comment on above: <200 mg/dL Desirable 200-240 mg/dL Borderline >240 mg/dL High Risk Glucose [Mass/Vol] 81 mg/dL 74-106 [facility] Work Phone: Potassium [Moles/Vol] 3.8 mmol/L 3.5-5.1 [facility] Work Phone: Sodium [Moles/Vol] 143 mmol/L 136-145 [facility] Work Phone: Triglyceride [Mass/Vol] 179 mg/dL <199 [facility] Work Phone: Comment on above: The drugs N-Acetylcy steine and Metamizole may falsely depress this assay.Serum Triglycerides Reference Interval Normal <150 mg/dL Borderline high 150 - 199 mg/dL High 200 - 499 mg/dL Very High > or = 500 mg/dL Laboratory - Chemistry and C hemistry - challengeon 07-21-2022 CO2 [Moles/Vol] 26.0 mmol/L 21.0-32.0 [facility] Work Phone: Urea nitrogen/Creatinine [Mass ratio] 23.4 mg/mg 10-20 [facility] Work Phone: No Panel Informationon 07-21 Estimated Creatinine Clearance Calc 43.20 ml/min [facility] Work Phone: Estimated GFR (MDRD) Amer 88 mL/min >60 [facility] Work Phone: Comment on above: GFR Calc Estimated GFR (MDRD) Non-Af Amer 73 mL/min >60 [facility] Work Phone: Comment on above: Non- GFR Calc Serum or plasma calcium guillermo urement (mass/volume)on 07-21-2022 Calcium [Mass/Vol] 9.5 mg/dL 8.5-10.1 [facility] Work Phone: Serum or plasma cholesterol in HDL measurement (mass/volume)on 07-21-2022 Cholesterol in HDL [Mass/Vol] 55 mg/dL >40 [facility] Work Phone: Comment on above: The drugs N-Acetylcy steine and Metamizole may falsely depress this assay. Reference Range HDL <40 mg/dL Low HDL Cholesterol HDL >or= 60 mg/dL High HDL Cholesterol Serum or plasma cholesterol in VLDL measurement (mass/volume)on 07-21-2022 Cholesterol in VLDL [Mass/Vol] 36 mg/dL 5-40 [facility] Work Phone: Serum or plasma creatinine m easurement (mass/volume)on 07-21-2022 Creatinine [Mass/Vol] 0.81 mg/dL 0.55-1.02 [facility] Work Phone: Comment on above: The validity of the calculated GFR & GFRAA in patients over 70 years has not been determined. Clinical correlation is essential. Serum or plasma low density lipoprotein (LDL) cholesterol measurement (mass/volume)on 07-21-2022 Cholesterol in LDL [Mass/Vol] 76 mg/dL 0-130 [facility] Work Phone: Serum or plasma urea nitroge n measurement (mass/volume)on 07-21-2022 Urea nitrogen [Mass/Vol] 19 mg/dL 7-18 [facility] Work Phone: Thin prep Papanicolaou smear with manual screeningon 07-21-2022 Thin prep Papanicolaou smear with manual screening 8 5-15 [facility] Work Phone: Absolute lymphocyte counton 07-20-2022 Lymphocytes Auto (Unsp spec) [#/Vol] 1.63 10*3/uL 0.83-4.51 [facility] Work Phone: Basophil percentageon 2021 Basophil percentage 0 SEEN /hpf 0-5 [facility] Work Phone: Basophils/100 WBC (Bld) 0.3 % 0-1 [facility] Work Phone: Bilirubin [Mass/Vol] 0.40 mg/dL 0.20-1.00 [facility] Work Phone: Comment on above: For patients on eltr ombopag therapy, use of Dimension [place] TBIL is not recommended. Chloride [Moles/Vol] 102 mmol/L 98-107 [facility] Work Phone: Eosinophils/100 WBC (Bld) 0.7 % 0-5 [facility] Work Phone: Glucose [Mass/Vol] 115 mg/dL 74-106 [facility] Work Phone: Comment on above: Fasting Glucose resu lt from 100 to 125 mg/dL suggests IMPAIRED HOMEOSTASIS per A.D.A. criteria. Neutrophils (Bld) [#/Vol] 6.7 10*3/uL 2.0-7.7 [facility] Work Phone: Neutrophils/100 WBC (Bld) 72.9 % 47-70 [facility] Work Phone: [phone] Potassium [Moles/Vol] 3.3 mmol/L 3.5-5.1 [facility] Work Phone: [phone] Protein [Mass/Vol] 6.8 g/dL 6.4-8.2 [facility] Work Phone: Sodium [Moles/Vol] 139 mmol/L 136-145 [facility] Work Phone: WBC (Bld) [#/Vol] 9.2 10*3/uL 4.4-11.0 [facility] Work Phone: Bilirubin Test strip Ql (U)o n 07-20-2022 Bilirubin Ql (U) Negative Negative [facility] Work Phone: Blood erythrocytes count (nu mber/volume)on 07-20-2022 RBC (Bld) [#/Vol] 4.80 10*6/uL 4.2-5.4 [facility] Work Phone: Blood hemoglobin measurement (mass/volume)on 07-20-2022 Hemoglobin (Bld) [Mass/Vol] 14.8 g/dL 12.0-15.0 [facility] Work Phone: [phone] Blood lymphocytes/100 leukoc yteson 07-20-2022 Lymphocytes/100 WBC (Bld) 17.8 % 19-41 [facility] Work Phone: [phone] Blood monocytes/100 leukocyt eson 07-20-2022 Monocytes/100 WBC (Bld) 7.9 % 0-10 [facility] Work Phone: Blood platelet mean volumeon 07-20-2022 Platelet mean volume (Bld) [Entitic vol] 9.3 fL 6.2-12.0 [facility] Work Phone: Determination of erythrocyte mean corpuscular volume (MCV)on 07-20-2022 MCV (RBC) [Entitic vol] 95.2 fL 81-99 [facility] Work Phone: Hematocrit Auto (Bld) [Volum e fraction]on 07-20-2022 Hematocrit (Bld) [Volume fraction] 45.7 % 37-47 [facility] Work Phone: Ketones Test strip Ql (U)on 07-20-2022 Ketones Ql (U) Negative Negative [facility] Work Phone: Laboratory - Chemistry and C hemistry - challengeon 07-20-2022 ALP [Catalytic activity/Vol] 73 U/L 45-117 [facility] Work Phone: ALT [Catalytic activity/Vol] 13 U/L 13-56 [facility] Work Phone: CO2 [Moles/Vol] 30.0 mmol/L 21.0-32.0 [facility] Work Phone: Globulin (S) [Mass/Vol] 3.5 g/dL 2.2-4.2 [facility] Work Phone: Urea nitrogen/Creatinine [Mass ratio] 22.0 mg/mg 10-20 [facility] Work Phone: Laboratory - Hematology and Cell countson 07-20-2022 Erythrocyte distribution width (RBC) [Entitic vol] 45.4 fL 35.1-43.9 [facility] Work Phone: Erythrocyte distribution width (RBC) [Ratio] 12.8 % 11.6-14.6 [facility] Work Phone: Immature granulocytes/100 WBC (Bld) 0.400 % 0.0-0.9 [facility] Work Phone: Comment on above: IG% - Immature Granu locytes (promyelocytes, myelocytes and metamyelocytes) > 1% indicates that a LEFT SHIFT is Present. MCH (RBC) [Entitic mass] 30.8 pg 27.0-32.0 [facility] Work Phone: Nucleated RBC/100 WBC (Bld) [Ratio] 0 % 0-5 [facility] Work Phone: MCHC Auto (RBC) [Mass/Vol]on 07-20-2022 MCHC (RBC) [Mass/Vol] 32.4 g/dL 32-36 [facility] Work Phone: Mucus LM Ql (Urine sed)on Mucus Ql (Urine sed) 0 SEEN /hpf [facility] Work Phone: Nitrite Test strip Ql (U)on 07-20-2022 Nitrite Ql (U) Negative Negative [facility] Work Phone: No Panel Informationon 07-20 Estimated Creatinine Clearance Calc 35.15 ml/min [facility] Work Phone: Estimated GFR (MDRD) Amer 73 mL/min >60 [facility] Work Phone: Comment on above: GFR Calc Estimated GFR (MDRD) Non-Af Amer 61 mL/min >60 [facility] Work Phone: Comment on above: Non- GFR Calc Platelets bldon 07-20-2022 Platelets (Bld) [#/Vol] 207 10*3/uL 150-450 [facility] Work Phone: Protein Test strip Ql (U)on 07-20-2022 Protein Ql (U) Negative Negative [facility] Work Phone: Serum or plasma albumin guillermo urement (mass/volume)on 07-20-2022 Albumin [Mass/Vol] 3.3 g/dL 3.2-5.0 [facility] Work Phone: Serum or plasma albumin/glob ulin mass ratioon 07-20-2022 Albumin/Globulin [Mass ratio] 0.9 {ratio} 0.9-2.4 [facility] Work Phone: Serum or plasma calcium guillermo urement (mass/volume)on 07-20-2022 Calcium [Mass/Vol] 11.2 mg/dL 8.5-10.1 [facility] Work Phone: Serum or plasma creatinine m easurement (mass/volume)on 07-20-2022 Creatinine [Mass/Vol] 0.95 mg/dL 0.55-1.02 [facility] Work Phone: Comment on above: The validity of the calculated GFR & GFRAA in patients over 70 years has not been determined. Clinical correlation is essential. Serum or plasma urea nitroge n measurement (mass/volume)on 07-20-2022 Urea nitrogen [Mass/Vol] 21 mg/dL 7-18 [facility] Work Phone: Squamous epithelial cells de tection in urine sediment by light microscopyon 07-20-2022 Epithelial cells.squamous LM Ql (Urine sed) 0 SEEN /hpf 5-10 [facility] Work Phone: Thin prep Papanicolaou smear with manual screeningon 07-20-2022 Thin prep Papanicolaou smear with manual screening 15 U/L 15-37 [facility] Work Phone: Thin prep Papanicolaou smear with manual screening 7 5-15 [facility] Work Phone: Urine blood detectionon 07-07 RBC Ql (U) 10 /ul Negative [facility] Work Phone: RBC Ql (U) 0 SEEN /hpf 0-5 [facility] Work Phone: Urine clarityon 07-20-2022 Clarity (U) Sl. Cloudy Clear [facility] Work Phone: Urine color determinationon 07-20-2022 Color (U) Yellow Yellow [facility] Work Phone: Urine glucose detectionon Glucose Ql (U) Normal mg/dl Normal [facility] Work Phone: Urine leukocyte esterase det ection by dipstickon 07-20-2022 Leukocyte esterase Test strip Ql (U) 25 /ul Negative [facility] Work Phone: Urine pHon 07-20-2022 pH (U) 6.5 [pH] 5.0 - 8.0 [facility] Work Phone: Urine sediment bacteria coun t by microscopy (number/high power field)on 07-20-2022 Bacteria LM.HPF (Urine sed) [#/Area] 1 /[HPF] None Seen [facility] Work Phone: Urine specific gravity measu rementon 07-20-2022 Specific gravity (U) [Rel density] 1.010 1.002-1.030 [facility] Work Phone: Urobilinogen Auto test strip Ql (U)on 07-20-2022 Urobilinogen Ql (U) Normal mg/dl Normal [facility] Work Phone: Whole blood hemoglobin A1c/t otal hemoglobin ratio (mass fraction)on 07-20-2022 HbA1c (Bld) [Mass fraction] 5.3 % 3.8-5.6 [facility] Work Phone: Comment on above: Normal < 5.7 % Predi abetic 5.7 - 6.4 % Diabetic >or= 6.5 % Please note range changes. Vital Signs Date Time Vital Sign Value Performing Clinician Faci lity 03-13-2023 11:10-0400 Body mass index (BMI) [Ratio] 17.4 kg/m2 Dr. Amisha Torrez Work Phone: [facility] 03-13-2023 09:00-0400 Body temperature 97.7 [degF] Dr. Amisha Torrez Work Phone: [facility] 03-13-2023 09:00-0400 Diastolic blood pressure 101 mm[Hg] Dr. Amisha Torrez Work Phone: [facility] 03-13-2023 09:00-0400 Heart rate 65 /min Dr. Amisha Torrez Work Phone: [facility] 03-13-2023 09:00-0400 Respiratory rate 16 /min Dr. Amisha Torrez Work Phone: [facility] 03-13-2023 09:00-0400 SaO2% (BldA) [Mass fraction] 100 % Dr. Amisha Torrez Work Phone: [facility] 03-13-2023 09:00-0400 Systolic blood pressure 147 mm[Hg] Dr. Amisha Torrez Work Phone: [facility] 03-12-2023 08:28-0400 Body height 162.[address] Amisha Torrez Work Phone: [facility] 03-12-2023 08:28-0400 Body weight 46.[address] Amisha Torrez Work Phone: [facility] 03-11-2023 20:00-0400 Body temperature 97.9 [degF] Dr. Amisha Torrez Work Phone: [facility] 03-11-2023 20:00-0400 Diastolic blood pressure 85 mm[Hg] Dr. Amisha Torrez Work Phone: [facility] 03-11-2023 20:00-0400 Heart rate 65 /min Dr. Amisha Torrez Work Phone: [facility] 03-11-2023 20:00-0400 Respiratory rate 18 /min Dr. Amisha Torrez Work Phone: [facility] 03-11-2023 20:00-0400 SaO2% (BldA) [Mass fraction] 97 % Dr. Amisha Torrez Work Phone: [facility] 03-11-2023 20:00-0400 Systolic blood pressure 114 mm[Hg] Dr. Amisha Torrez Work Phone: [facility] 03-11-2023 18:07-0400 Body height 157.[address] Amisha Torrez Work Phone: [facility] 03-11-2023 18:07-0400 Body mass index (BMI) [Ratio] 19.1 kg/m2 Dr. Amisha Torrez Work Phone: [facility] 03-11-2023 18:07-0400 Body weight 47.[address] Amisha Torrez Work Phone: [facility] 01-25-2023 10:04-0400 Body height 162.6 cm Chiquis Haider MD Work Phone: [facility] 01-25-2023 10:04-0400 Body weight 45.36 kg Chiquis Haider MD Work Phone: [facility] 01-25-2023 10:04-0400 Diastolic blood pressure 101 mm[Hg] Chiquis Haider MD Work Phone: [facility] 01-25-2023 10:04-0400 Heart rate 90 /min Chiquis Haider MD Work Phone: [facility] 01-25-2023 10:04-0400 Systolic blood pressure 151 mm[Hg] Chiquis Haider MD Work Phone: [facility] 01-14-2023 14:16-0500 Body temperature 98 [degF] Dr. Amisha Torrez Work Phone: [facility] 01-14-2023 14:16-0500 Diastolic blood pressure 96 mm[Hg] Dr. Amisha Torrez Work Phone: [facility] 01-14-2023 14:16-0500 Heart rate 68 /min Dr. Amisha Torrez Work Phone: [facility] 01-14-2023 14:16-0500 Respiratory rate 18 /min Dr. Amisha Torrez Work Phone: [facility] 01-14-2023 14:16-0500 SaO2% (BldA) [Mass fraction] 96 % Dr. Amisha Torrez Work Phone: [facility] 01-14-2023 14:16-0500 Systolic blood pressure 125 mm[Hg] Dr. Amisha oTrrez Work Phone: [facility] 01-14-2023 03:47-0500 Body mass index (BMI) [Ratio] 17.6 kg/m2 Dr. Amisha Torrez Work Phone: [facility] 01-13-2023 18:50-0500 Body height 162.[address] Amisha Torrez Work Phone: [facility] 01-13-2023 18:50-0500 Body weight 46.[address] Amisha Torrez Work Phone: [facility] 10-11-2022 12:57-0500 Body mass index (BMI) [Ratio] 17.8 kg/m2 Dr. Amisha Torrez Work Phone: [facility] 10-11-2022 12:57-0500 Body temperature 97.7 [degF] Dr. Amisha Torrez Work Phone: [facility] 10-11-2022 12:57-0500 Body weight 47.[address] Amisha Torrez Work Phone: [facility] 10-11-2022 12:57-0500 Diastolic blood pressure 80 mm[Hg] Dr. Amisha Torrez Work Phone: [facility] 10-11-2022 12:57-0500 Heart rate 81 /min Dr. Amisha Torrez Work Phone: [facility] 10-11-2022 12:57-0500 Respiratory rate 16 /min Dr. Amisha Torrez Work Phone: [facility] 10-11-2022 12:57-0500 SaO2% (BldA) [Mass fraction] 100 % Dr. Amisha Torrez Work Phone: [facility] 10-11-2022 12:57-0500 Systolic blood pressure 128 mm[Hg] Dr. Amisha Torrez Work Phone: [facility] 07-21-2022 14:09-0400 Body temperature 98.1 [degF] MD Ike Palacios Work Phone: [facility] Work Phone: 07-21-2022 14:09-0400 Diastolic blood pressure 85 mm[Hg] MD Ike Palacios Work Phone: [facility] Work Phone: 07-21-2022 14:09-0400 Heart rate 76 /min MD Ike Palacios Work Phone: [facility] Work Phone: 07-21-2022 14:09-0400 Respiratory rate 18 /min MD Ike Palacios Work Phone: [facility] Work Phone: 07-21-2022 14:09-0400 SaO2% (BldA) [Mass fraction] 96 % MD Ike Palacios Work Phone: [facility] Work Phone: 07-21-2022 14:09-0400 Systolic blood pressure 132 mm[Hg] MD Ike Palacios Work Phone: [facility] Work Phone: 07-21-2022 10:22-0400 Body height 162.56 cm MD Ike Palacios Work Phone: [facility] Work Phone: 07-21-2022 10:22-0400 Body mass index (BMI) [Ratio] 17.5 kg/m2 MD Ike Palacios Work Phone: [facility] Work Phone: 07-21-2022 10:22-0400 Body weight 46.32 kg MD Ike Palacios Work Phone: [facility] Work Phone: 07-20-2022 16:15-0400 Body temperature 98.2 [degF] [facility] Work Phone: 07-20-2022 16:15-0400 Diastolic blood pressure 106 mm[Hg] [facility] Work Phone: 07-20-2022 16:15-0400 Heart rate 72 /min [facility] Work Phone: 07-20-2022 16:15-0400 Respiratory rate 16 /min [facility] Work Phone: 07-20-2022 16:15-0400 SaO2% (BldA) [Mass fraction] 99 % [facility] Work Phone: 07-20-2022 16:15-0400 Systolic blood pressure 169 mm[Hg] [facility] Work Phone: 07-20-2022 12:58-0400 Body height 162.56 cm [facility] Work Phone: 07-20-2022 12:58-0400 Body mass index (BMI) [Ratio] 16.7 kg/m2 [facility] Work Phone: 07-20-2022 12:58-0400 Body weight 44.2 kg [facility] Work Phone: Encounters Encounter Date Encounter Type Care Provider Facility Start: 10-16-2024 Encounter for genera l adult medical examination without abnormal findings [facility] Start: 09-18-2024 End: 09-18-2024 ambulatory [facility] Facility:[facility] Start: 03-01-2024 End: 03-01-2024 ambulatory [facility] Work Phone: Start: 03-01-2024 End: 03-01-2024 Patient encounter procedure [facility] Work Phone: Start: 03-01-2024 End: 03-01-2024 ambulatory [facility] Facility:[facility] Start: 10-25-2023 End: 10-25-2023 ambulatory [facility] Facility:[facility] Start: 10-25-2023 End: 10-25-2023 ambulatory [facility] Facility:[facility] Start: 10-19-2023 End: 10-19-2023 ambulatory [facility] Work Phone: Start: 10-19-2023 End: 10-19-2023 Patient encounter procedure [facility] Work Phone: Start: 10-12-2023 End: 10-12-2023 ambulatory [facility] Work Phone: Start: 10-12-2023 End: 10-12-2023 Patient encounter procedure [facility] Work Phone: Start: 08-14-2023 End: 08-14-2023 ambulatory [facility] Work Phone: Start: 08-14-2023 End: 08-14-2023 Patient encounter procedure [facility], Gavin Carmen [facility] Start: 07-20-2023 End: 07-21-2023 ambulatory LA NEWBERRY Facility:[facility] Start: 06-26-2023 E-mail encounter fro m caregiver La Newberry MD Work Phone: [facility] Start: 06-26-2023 Patient encounter procedure La Newberry MD Work Phone: [facility] Comment on above: URGENT Appointment C ancelled Start: 03-12-2023 Non-patient / Non-visit Dr. Amisha Torrez Work Phone: [facility] Start: 03-11-2023 Non-patient / Non-visit Dr. Amisha Torrez Work Phone: [facility] Start: 03-11-2023 End: 03-13-2023 Evaluation and management of inpatient Dr. 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) Start: 02-07-2023 End: 02-08-2023 ambulatory CHIQUIS HAIDER Facility:[facility] Start: 01-25-2023 End: 01-26-2023 ambulatory ALONSO OBANDO Facility:[employer] Start: 01-25-2023 End: 01-25-2023 ambulatory ALONSO OBANDO Facility:[facility] [facility] Start: 01-25-2023 End: 01-25-2023 Patient encounter procedure Chiquis Haider MD Work Phone: [facility] Comment on above: Elevated blood press ure reading without diagnosis of hypertension [R03.0 (ICD-10-CM)] (Primary Dx); 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); Arterial ischemic stroke, MCA (middle cerebral artery), left, acute (HCC) Start: 01-14-2023 Non-patient / Non-visit Dr. Amisha Torrez Work Phone: [facility] Start: 01-14-2023 Non-patient / Non-visit Dr. Amisha Torrez Work Phone: [facility] Start: 01-13-2023 End: 01-14-2023 Evaluation and management of inpatient Dr. Amisha Torrez [facility] Start: 01-13-2023 End: 01-14-[address] Amisha Torrez Work Phone: [facility] Work Phone: Start: 10-11-2022 End: 10-11-[address] Amisha Torrez Work Phone: [facility] Start: 09-14-2022 End: 09-14-2022 ambulatory MD Ike Palacios Work Phone: [facility] Work Phone: Start: 09-14-2022 End: 09-14-2022 Patient encounter procedure MD Ike Palacios [facility] Start: 07-21-2022 Non-patient / Non-visit MD Ike Palacios Work Phone: [facility] Start: 07-21-2022 Non-patient / Non-visit MD Ike Palacios Work Phone: [facility] Start: 07-21-2022 Non-patient / Non-visit MD Ike Palacios Work Phone: [facility] Start: 07-20-2022 Non-patient / Non-visit MD Ike Palacios Work Phone: [facility] Start: 07-20-2022 End: 07-21-2022 Evaluation and management of inpatient [facility] Start: 07-20-2022 End: 07-21-2022 observation encounter MD Ike Palacios Work Phone: [facility] Work Phone: Start: 07-20-2022 End: 07-20-2022 Patient encounter procedure Chris Morin TAFE REGISTRARShannaTAKER AWAY Work Phone: [facility] Comment on above: Confusion (Primary [...] CT of head without contrast Dr. Amisha oTrrez Work Phone: Start: 07-20-2022 MRI of neck [...] Author Start: 07-07-2023 Influenza vaccination INFLUENZA (#1) [facility] Start: 03-13-2023 Patient discharge [facility] Start: 03-11-2023 Following clinical pathway protocol [facility] Start: 03-11-2023 Assessment of risk o f venous thromboembolism [facility] Start: 03-11-2023 Cardiac monitoring [facility] Start: 03-11-2023 Catheterization of vein [facility] Start: 03-11-2023 Elevation of head of bed [facility] Start: 03-11-[address] [facility] Start: 03-11-[address] anned interventions [facility] Start: 03-11-2023 Insertion of cathete r into peripheral vein [facility] Start: 03-11-2023 Measuring intake and output [facility] Start: 03-11-2023 Notification of physician [facility] Start: 03-11-2023 Oxygen therapy [facility] Start: 03-11-2023 Patient referral to dietitian [facility] Start: 03-11-2023 Providing care accor ding to standard [facility] Start: 03-11-2023 Provision of activit y privileges [facility] Start: 03-11-2023 Referral to occupati onal therapist [facility] Start: 03-11-2023 Referral [facility] service [facility] Start: 03-11-2023 Tobacco use cessatio n education [facility] Start: 03-11-2023 [facility] Start: 03-11-2023 Troponin I measurement [facility] Start: 03-11-2023 Urinalysis complete panel - Urine [facility] Start: 03-11-2023 Admission procedure [facility] Start: 03-11-2023 Oxygen therapy [facility] Start: 03-11-2023 [facility] Start: 01-25-2023 End: 03-27-2023 Nuclear Ab [Presence] in Serum by Immunoassay [facility] Work Phone: Comment on above: Expected: 01/25/2023 , Expires: 03/27/2023 Start: 01-25-2023 End: 03-27-2023 Rheumatoid factor [Units/volume] in Serum or Plasma [facility] Work Phone: Comment on above: Expected: 01/25/2023 , Expires: 03/27/2023 Start: 01-14-2023 Verification routine [facility] Start: 01-14-2023 Patient discharge [facility] Start: 01-14-2023 Application of intermittent pneumatic compression device [facility] Start: 01-13-2023 Following clinical pathway protocol [facility] Start: 01-13-2023 Assessment of risk o f venous thromboembolism [facility] Start: 01-13-2023 Cardiac monitoring [facility] Start: 01-13-2023 Catheterization of vein [facility] Start: 01-13-2023 Continuous pulse oximetry [facility] Start: 01-13-2023 Elevation of head of bed [facility] Start: 01-13-[address] [facility] Start: 01-13-[address] anned interventions [facility] Start: 01-13-2023 Insertion of cathete r into peripheral vein [facility] Start: 01-13-2023 Measuring intake and output [facility] Start: 01-13-2023 Notification of physician [facility] Start: 01-13-2023 Oxygen therapy [facility] Start: 01-13-2023 Providing care accor ding to standard [facility] Start: 01-13-2023 Provision of activit y privileges [facility] Start: 01-13-2023 Referral to occupati onal therapist [facility] Start: 01-13-2023 Referral to service [facility] Start: 01-13-2023 Speech therapy assessment [facility] Start: 01-13-2023 Tobacco use cessatio n education [facility] Start: 01-13-2023 [facility] Start: 01-13-2023 Admission procedure [facility] Start: 11-06-2022 ADVANCE DIRECTIVE DISCUSSION ADVANCE DIRECTIVE DISCUSSION [facility] Start: 11-06-2022 DEPRESSION ASSESSMENT DEPRESSION ASS ESSMENT [facility] Start: 07-21-2022 Patient discharge [facility] Work Phone: Start: 07-21-2022 Blood chemistry [facility] Work Phone: Start: 07-20-2022 Referral to vascular surgeon [facility] Work Phone: Start: 07-20-2022 Following clinical pathway protocol [facility] Work Phone: Start: 07-20-2022 Ambulation without limitation [facility] Work Phone: Start: 07-20-2022 Assessment of risk o f venous thromboembolism [facility] Work Phone: Start: 07-20-2022 Catheterization of vein [facility] Work Phone: Start: 07-20-2022 Insertion of cathete r into peripheral vein [facility] Work Phone: Start: 07-20-2022 Measuring intake and output [facility] Work Phone: Start: 07-20-2022 Providing care accor ding to standard [facility] Work Phone: Start: 07-20-2022 Referral to occupati onal therapist [facility] Work Phone: Start: 07-20-2022 Referral to service [facility] Work Phone: Start: 07-20-2022 Speech therapy assessment [facility] Work Phone: Start: 07-20-2022 [facility] Work Phone: Start: 07-20-2022 Magnetic resonance angiography of head without contrast MRA Head ONLY without Contrast [facility] Work Phone: Start: 07-20-2022 MRI of brain without contrast Brain without Contrast [facility] Work Phone: Start: 07-20-2022 MRI of neck vessels with contrast MRA Neck WITH and W/O Contrast [facility] Work Phone: Start: 07-20-2022 Verification routine [facility] Work Phone: Start: 07-20-2022 Admission procedure [facility] Work Phone: Start: 07-20-2022 Patient referral to dietitian [facility] Work Phone: Start: 07-07-2022 Influenza vaccination INFLUENZA (#1) [facility] Start: 03-05-2022 COVID-19 VACCINE (3 - Booster for Susan series) COVID-19 VACCINE (3 - Booster for Susan series) [facility] Start: 12-30-2021 COVID-19 VACCINE (4 - Booster for Susan series) COVID-19 VACCINE (4 - Booster for Susan series) [facility] Start: 11-06-2021 ADVANCE DIRECTIVE DISCUSSION ADVANCE DIRECTIVE DISCUSSION [facility] Start: 05-06-2019 Urine microalbumin profile DTAP,TDAP,TD (3 - Td or Tdap) [facility] Start: 10-15-2013 DIABETES SCREEN DIABETES SCREEN [facility] Start: 2010 PNEUMOCOCCAL: 65+ (1 - PCV) PNEUMOCOCCAL: 65+ (1 - PCV) [facility] Start: 1995 SHINGRIX VACCINE (1 of 2) SUMMERS GRIX VACCINE (1 of 2) [facility] Start: 1963 HEPATITIS C SCREENING HEPATITIS C LA ARJUN [facility] Start: 1957 Adult depression screening assessment DEPRESSION SCREENING [facility] Anion gap measurement [facility] Work Phone: BUN/Creatinine ratio [facility] Work Phone: Calcium [Mass/volume ] in Serum or Plasma [facility] Work Phone: Carbon dioxide, tota l [Moles/volume] in Serum or Plasma [facility] Work Phone: Chloride [Moles/volu me] in Serum or Plasma [facility] Work Phone: Creatinine [Moles/vo lume] in Serum or Plasma [facility] Work Phone: End: 01-26-2024 EPIL EEG ROUTINE EPIL EEG ROUTINE NEUROLOGY Routine Arterial ischemic stroke, MCA (middle cerebral artery), left, acute (HCC) 1 Occurrences starting 01/25/2023 until 01/26/2024 [facility] Work Phone: Comment on above: 1 Occurrences starti ng 01/25/2023 until 01/26/2024 Glucose [Mass/volume ] in Serum or Plasma [facility] Work Phone: Measurement of renal function [facility] Work Phone: OT PLAN OF CARE CERTIFICATION OT PLAN OF CARE CERTIFICATION Procedures Routine 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) Ordered: 02/16/2023 [facility] Work Phone: Comment on above: Ordered: 02/16/2023 Patient Education TIA Dc [facility] Work Phone: Patient referral [facility] Work Phone: Potassium [Moles/vol ume] in Serum or Plasma [facility] Work Phone: Sodium [Moles/volume ] in Serum or Plasma [facility] Work Phone: Urea nitrogen [Mass/volume] in Serum or Plasma [facility] Work Phone: [facility] Immunizations Immunization Date Immunization Notes Care Provider Pato raymond 08-06-2022 influenza, injectabl e, quadrivalent, preservative free [facility] 08-06-2022 influenza, seasonal, injectable Dr. Amisha Torrez Work Phone: [facility] 11-06-2020 Jessica (Cam & Cam) MD Ike Palacios Work Phone: [facility] 12-07-2017 influenza, high dose seasonal, preservative-free Chris Morin APRN.TAKER AWAY Work Phone: [facility] 08-20-2010 influenza virus vaccine, unspecified formulation Chris Morin APRN.TAKER AWAY Work Phone: [facility] Work Phone: 05-06-2009 diphtheria and tetan us toxoids, adsorbed for pediatric use Chris Morin TAFE REGISTRAR.TAKER AWAY Work Phone: [facility] Work Phone: 09-19-2008 tetanus toxoid, reduced diphtheria toxoid, and acellular pertussis vaccine, adsorbed Chris Presleyascencion TAFE REGISTRAR.TAKER AWAY Work Phone: [facility] Work Phone: Payers Date Payer Category Payer Self-pay [id number] 2021 Private Health Insurance [id number] 2021 Private Health Insurance [employer] [id number] 2021-Present [phone] [address] [place] [address] Indemnity [id number] 2011 Private Health Insurance [facility] [id number] 2010 Medicare [id number] 2010 Medicare MEDICARE MEDICAR E A AND B [id number] 2010-Present [phone] [address] [address] [place] [address] Medicare [id number] Unknown [id number] Unknown [id number] Unknown [id number] Unknown [id number] Social History Date Type Detail Facility Start: 07-20-2022 End: 10-25-2023 Tobacco smoking status NHIS Unknown if ever smoked [facility] Start: 02-24-[address] [facility] Start: 02-24-[address] [facility] Start: 03-11-[address] [facility] Start: 1945 Sex Assigned At Female [facility] Start: 10-15-2010 Tobacco smoking stat us NHIS Never smoked tobacco [facility] Work Phone: History of tobacco use Cigarette Smoker [facility] Work Phone: Start: 10-15-2010 End: 06-26-2023 Cigarettes smoked current (pack per day) - Reported 0.1 [facility] History of tobacco use Passive smoker [facility] Work Phone: Start: 07-20-2022 End: 01-25-2023 Alcohol intake Current drinker of alcohol (finding) [facility] Start: 05-21-2007 History SDOH Alcohol Comment social [facility] Start: 10-15-2010 Tobacco Comment 10/ wk [facility] Start: 07-10-2022 End: 07-20-2022 Exposure to SARS-CoV-2 (event) Not sure [facility] Start: 01-25-2023 End: 06-26-2023 Tobacco use panel [facility] National Score (1-10 0), lower number is lower risk 66 [facility] Start: 09-20-2021 Gender identity Identifies as female gender (finding) [facility] Goals Date Patient Goal Desired Activity /State Functional Status Date Assessment Result Facility 03-13-2023 Functional status Activity Abili ty Standby Assist [facility] Work Phone: 03-12-[address] [facility] Work Phone: 01-14-[address] [facility] Work Phone: 07-21-2022 Functional status Activity Ability Indepe ndent [facility] Work Phone: 07-21-2022 Functional status Patient Activi ty Ambulates;Up ad behzad [facility] Work Phone: Mental Status Date Assessment Result Facility 03-13-2023 Cognitive function Voice/Name [facility] Work Phone: 03-11-2023 Cognitive function Voice/Name [facility] Work Phone: 01-14-2023 Cognitive function Voice/Name [facility] Work Phone: 07-21-2022 Cognitive function Voice/Name [facility] Work Phone: 07-20-2022 Cognitive function Voice/Name [facility] Work Phone: Clinical Notes 07-20-2022 to 07-20-2023 Note Date & Type Note Facility 07-20-2023 Note HNO ID: [id number] Author: La Newberry MD Service: ? Author Type: Physician Type: Progress Notes Filed: 08/14/2023 8:21 PM Note Text: [facility] Initial Visit Consultation is requested by: Consultation requested by Dr. Obando for an opinion regarding white matter disease. My final recommendations will be communicated back to the requesting physician by way of shared medical record or letter via US mail PCP: Alonso Obando [address] [place] [address] [place] [address] CEREBROVASCULAR HISTORY Sheela Tadeo is a 77 [...] part of the assessment. - Face, Velvet, Temple, Marlen, Red Attention: - Repeat in forward [...] - Face 11/06 - Velvet 11/06 - Temple - Marlen - Red 11/06 Orientation - Date 0/1 - Month 11/06 - Year 11/06 - Day 11/06 - Place 11/06 - [facility] 11/06 Total Points Scored 25/30 Normal is [...] one (more content not included)... [facility] 03-13-2023 Discharge summary Note Date/Time March 13, 2023 10:52a m [facility] Medical Records Department [address] [place] [address] Instructions for Home/Discharge Instructions 03/13/23 1050 MR#: [id number] Acct: [id number] Name: SHEELA TADEO Rep #:[id number] : [...] DO; Dr. Amisha Torrez MD ~ Signed [facility] Work Phone: 1(410) 755-264705-07-[address] Farr [facility] March 12, 2023 8:58am Note Date/Time March 12, 2023 7:35am [facility] Medical Records Department [address] [place] [address] Progress Note - Hospitalist 03/12/23 0732 MR#: [id number] Acct: [id number] Name: SHEELA TADEO Rep #:[id number] : 1945 77 From: Kenny Farr MD PCP: Dr. Amisha Torrez MD Status:ADM IN Location: [place] [id number] Reason for Visit Reason for Visit: [...] % (Auto) 61.7, Lymph % (Auto) 27.8, [place]% (Auto) 8.1, Eos % (Auto) 1.6, Baso [...] Clarity Clear, Urine pH 6.5, Ur Specific [place] 1.015, Urine Protein 15 H, Urine Glucose [...] documentation, 40Minutes Charges/Coding Visit Charges Inpatient E&M: 91206 Subs Hosp L2 03/12/23 0858 <Electronically signed by Kenny Farr MD> Cosigner Signature (if applicable): CC: ~ Signed [facility] Work Phone: 1(403) 130-353105-06-[address] Azevedo [facility] March 11, 2023 9:13pm Note Date/Time March 11, 2023 6:00pm [facility] Medical Records Department [address] [place] [address] Emergency Department Summary 03/11/23 MR#: [id number] Acct: [id number] Name: SHEELA TADEO Rep #:[id number] : 1945 77 From: Rafat Azevedo MD PCP: Dr. Amisha Torrez MD Status:ADM IN Location: [place] [address] HPI History of Present Illness Chief Complaint: Neuro S/Sx Informant: patient and family Narrative Narrative: History is per patient but more per her son who is with her when the events happened and is present now. This patient presents with strokelike symptoms. She denied prior stroke but hersons and mfdngugu-ic-ywd states that she has had mini strokes [...] These were out of character for her. [facility] Medical History HTN (hypertension) Macular degeneration Smoker [...] % (Auto) 61.7 Lymph % (Auto) 27.8 [place] % (Auto) 8.1 Eos % (Auto) 1.6 [...] (Auto) Neut % (Auto) Lymph % (Auto) [place] % (Auto) Eos % (Auto) Baso % [...] blood pressure Disposition Disposition: [facility] Discharge Date/Time: 03/11/23 20:19 What to do if you have Problems For any increased pain, shortness of breath, bleeding, nausea or vomiting, chestpain, or any unexpected problems, contact your Primary Care Provider. Call [facility] ([phone]) or report to the closest Emergency Room. [...] or depression. Minimal baseline variation. No ectopy. CA interval, QRS duration and QTc normal 03/11/232112<Electronically signed by Rafat Azevedo MD> Cosigner Signature (if applicable): cc: Dr. Amisha Torrez MD ~* Signed [facility] Work Phone: 1(574) 848-784805-06-2023 History and physical note Author Dr. Naranjo [facility] March 11, 2023 8:19pm Note Date/Time March 11, 2023 8:19pm [facility] Medical Records Department [address] [place] [address] H&P Exam - Hospitalist 03/11/232009 MR#: [id number] Acct: [id number] Name: SHEELA TADEO Rep #:[id number] : 1945 77 From: Hai Naranjo DO PCP: Dr. Amisha Torrez MD Status:ADM IN Location: [facility] [id number] HPI - General General Date of [...] put the proper way. They were in [place] for the game when he came back, [...] children read in a car with her. [facility] Medical History HTN (hypertension) Macular degeneration [...] and oriented to place Coordination / Balance: hmimmk-fn-vbbf test normal and tgjw-jh-ahso test normal Speech: speech normal Psych affect [...] % (Auto) 61.7, Lymph % (Auto) 27.8, [place]% (Auto) 8.1, Eos % (Auto) 1.6, Baso [...] intracranial hemorrhage or mass effect. Electronically Signed: Mikcey Jose (Brooks), at 18:08 EDT , ADDENDUM: [...] molecular heparin. Charges/Coding Visit Charges Inpatient E&M: 17322 Init Hosp L3 03/11/232018 <Electronically signed by Hai Naranjo DO> Cosigner Signature (if applicable): CC: Dr. Hai Naranjo DO; Dr. Amisha Torrez MD~ Signed [facility] Work Phone: [phone]) 393-681704-25-2023 NoteHNO ID: [id number] Author: Ken Gabriel OTR/L Service: ? 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 Billing: Drivers Follow Up per 60 min (32918): 1:1 time 60 min Total time: 60 minutes DAMARIS Ramírez, CDI/PD Dietary Server Supervisor [employer] documented in this encounterFort Hamilton Hospital04-18-2023 Miscellaneous Notes* Telephone Encounter - Neelam [...] Tade[birth year], 1945). Yes Number to return call [phone] Reason for Call: [facility] is calling to assist patient with Sooner appointment with Dr. Newberry. He states patient is being referred to Dr. Newberry by Dr. Chiquis Haider. Patient Dx TIA, Brain Lesion and according to family friend a Director Of Informatics who was on 3-way. Patient has complex vascular issue. Patient currently schedule 05/15. Please advise whether patient can be scheduled in a new slot for possible sooner appointment. Please review and advise Neelam Jeronimo. Thanks. Thank you calling [facility] [place]. You will receive a return call within 48hours ( or 2 business days if close to the weekend). If you feel that this is an urgent issue and needs immediate attention, it is recommended that you contact your primary care provider office or proceed to your nearest Urgent Care Center of Emergency Room ED for evaluation/treatment. documented in this encounterFort Hamilton Hospital04-13-2023 Miscellaneous Notes* Addendum Note - DAMARIS Ramírez - 02/16/2023 1:51 PM EDTAddended by: KEN GABRIEL on: 02/16/2023 01:51 PM Modules accepted: Orders documented in this encounterFort Hamilton Hospital04-12-2023 NoteHNO ID: [id number] Author: DAMARIS Ramírez Service: ? Author Type: [...] 4 days/week. She currently owns a 2017 Slacker 4 door SUV with automatic transmission. 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 [facility]04-12-[facility] History of Present illness Narrative* Ken Gabriel OTR/Garrett - 02/15/2023 10:00 AM EDT Episode Visit Count: 1 Therapist That Will Accept/Oversee The Plan Of Care: Anna Gabrile Start of Care Date: 02/15/23 Onset Date: [...] / Current Exercise: walking Hobbies / Interests: [employer] Home Environment Patient Lives With: Self/Alone Assistance [...] 4 days/week. She currently owns a 2017 Slacker 4 door SUV with automatic transmission. 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: Sufficient Right LE: Sufficient Left LE: [...] Recall: WNL @ 6/6 digits Visual Scanning/Attention: [place] Making Part A (sec): 58 sec [place] Making Part B (sec): 207 sec 50th [...] Compatible with Driving and adequate with IADLs [place] Dietary Server Simulator: Simple Brake Reaction Time: Average Distance: [...] Education/Teach Back: States/Identifies, Return Demonstration TREATMENT: Evaluation Self-Mcc Management: 1: Educated on safety throughout the [...] this report indicates the 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 The above goals and plan of care were discussed and agreed upon by patient/family. Billing: Evaluation - Moderate Complexity (34561) Self Care / Home Management (61983): 1:1 time: 30 minutes (2 units: 23-37 mins) Community /Work Re-integration (29333): 1:1 time: 45 minutes (3 units: 38-52 mins) Total time: 105 minutes DAMARIS Ramírez, CDI/PD Dietary Server Supervisor [employer] documented in this encounterFort Hamilton Hospital03-23-2023 NoteHNO ID: [id number] Author: Chiquis Haider MD Service: ? Author Type: Physician Type: Progress Notes Filed: 01/26/2023 11:41 AM Note Text: MRIMRA of brain was reviewed with the neuro-radiologist at [facility]: severe bilateral white matter disease. No micro-bleeds. MRA of brain and neck are normalH[facility] History of Present illness Narrative* Chiquis Haider MD - 01/26/2023 11:40 AM EDT MRIMRA of brain was reviewed with the neuro-radiologist at [facility]: severe bilateral white matter disease. No micro-bleeds. MRA of brain and neck are normal * Chiquis Haider MD - 01/25/2023 11:00 AM EDT [facility] Initial Visit Consultation is requested by: SELF PCP: Alonso Obando [address] [place] [address] [place] [address] CEREBROVASCULAR HISTORY Sheela Tadeo is a 77 [...] with both medication. She recurrence of the vlademar symptoms in the last six months; and [...] vibration. Coordination: Rapid alternating movements symmetric bilaterally. Liigxo-ly-xwqe, wvaf-xu-tejg without dysmetria bilaterally. Gait: Narrow-based, normal spaced and stable without assistance. Tandem gait is stable. LABS Cholesterol: No results found for: CHOL LDL Chol, [place] (mg/dL) Date Value 10/15/2010 104 No results [...] Continue BP medications Follow up with the [facility] for control of hypertension Advised compliance with [...] which included preparing to see the patient, ntbw-ig-drny patient care, completing clinical documentation, obtaining and/or reviewing separately obtained history, performing a medically appropriate examination, counseling and educating the patient/family/caregiver, ordering medications, tests, or procedures, independently interpreting results (not separately reported), and communicating results to the patient/family/caregiver SIGNATURE Chiquis Haider MD CC SELF Alonso Obando [address] [place] [address] [place] [address] documented in this encounterFort Hamilton Hospital03-22-2023 NoteHNO ID: [id number] Author: Chiquis Haider MD Service: ? Author Type: Physician Type: Progress Notes Filed: 07/07/2023 9:46 AM Note Text: [facility] Initial Visit Consultation is requested by: SELF PCP: Alonso Obando [address] [place] [address] [place] [address] CEREBROVASCULAR HISTORY Sheela Tdaeo is a 77 year old female, with [...] vibration. Coordination: Rapid alternating movements symmetric bilaterally. Ibmjyj-nt-zzoo, wnrz-hw-rqeo without dysmetria bilaterally. Gait: Narrow-based, normal spaced and stable without assistance. Tandem gait is stable. LABS Cholesterol: No results found for: CHOL LDL Chol, [place] (mg/dL) Date Value 10/15/2010 104 No results [...] - Not at al (more content not included)...[facility]03-10-[address] Munguia [facility] January 13, 2023 6:27pm Note Date/Time January 13, 2023 5:0 1pm [facility] Medical Records Department [address] [place] [address] Emergency Department Summary 01/13/23 MR#: [id number] Acct: [id number] Name: SHEELA TADEO Rep #:[id number] : 1945 77 From: Constantino Munguia MD PCP: Dr. Amisha Torrez MD Status:ADM ELLA Location: [place] [address]- 1 HPI History of Present Illness Chief [...] 17:56 EST Reading Location ID and State: [facility] / [place] , Service support , EKG Initial EKG: Attestation: I personally reviewed and interpreted this EKG as follows: Interpretation: Sinus Rhythm (Heart rate is 96. There are premature atrial complexes. There is artifact which the computer is reading ST and T waveabnormality. CA interval is 144 ms. Cures duration 80 ms. QT duration 336 ms. [place] is normal.) and No Acute Injury Pattern Management Discussion w/another healthcare provider: Hospitalist Discharge Plan Triage Chief Complaint: Neuro S/Sx ED Provider: Constantino Munguia Dx/Rx/DC Orders Primary Care Provider: Amisha Torrez What to do if you have Problems For any increased pain, shortness of breath, bleeding, nausea or vomiting, chestpain, or any unexpected problems, contact your Primary Care Provider. Call [facility] ([phone]) or report to the closest Emergency Room. Call 911 if necessary. 01/13/231826 <Electronically signed by Constantino Munguia MD> Cosigner Signature (if applicable): CC: Dr. Amisha Torrez MD ~ Signed [facility] Work Phone: 1(321) 635-365703-10-2023 History and physical note Author Dr. Ruffin [facility] January 14, 2023 2:33pm Note Date/Time January 13, 2023 5:5 6pm [facility] Medical Records Department [address] [place] [address] H&P Exam - Hospitalist 01/13/23 175 MR#: [id number] Acct: [id number] Name: SHEELA TADEO Rep #:[id number] : 1945 77 From: Quin Ruffin MD PCP: Dr. Amisha Torrez MD Status:ADM ELLA Location: [place] [address] HPI - General General Date of Admission: 01/13/23 Date of Service: 01/13/23 Chief Complaint: neuro symptoms HPI Narrative SHEELA TADEO, is a Fwith a [facility] as outlined who presents via the [...] for expressive aphasia concerning for acute CVA. [facility] Medical History HTN (hypertension) Macular degeneration [...] Patient and her son and daughter in [facility] counseled extensively about different types of CODE STATUS including full code, DNR CCA and DNR CCA. Patient couldnt decide about her code status and wanted more time to think about it. She did understand that in light of her not having made a decision, her default code status would be full code. * Total wsoh-le-ljst time 17 minutes. Total time spent on evaluation and management of patient, reviewing chart and specialist notes, discussing plan with patient, her son and daughter in law, discussion with nursing and ancillary staff as well as documentation in EMR: 58 mins Charges/Coding Visit Charges Inpatient E&M: 78902 Init Hosp L2 Procedures Hospitalists Procedures: 74304 Advncd Care Plan 30 Min 01/14/23 1433 <Electronically signed by Quin Ruffin MD> Cosigner Signature (if applicable): CC: Dr. Amisha Torrez MD; Dr. Quin Ruffin MD~ Signed [facility] Work Phone: 1(313) 803-451509-14-2022 History of Present illness Narrative* Chris Morin [...] plan of care. Will accompany patient to [facility]. Chris Morin APRN.TAKER AWAY documented in this encounterFort Hamilton HospitalDis[facility] summary Author Dr. Ruffin [facility] January 14, 2023 2:20pm Note Date/Time January 14, 2023 2:0 8pm [facility] Medical Records Department [address] [place] [address] Discharge Summary 01/14/23 1404 MR#: [id number] Acct: [id number] Name: SHEELA TADEO Rep #:[id number] : 1945 77 From: Quin Ruffin MD PCP: Dr. Amisha Torrez MD Status:ADM ELLA Location: [place] [address] Providers Date of Admission: 01/13/23 Date of [...] 74.7 H, Lymph % (Auto) 17.2 L, [place] % (Auto) 6.4, Eos % (Auto) 0.6, [...] (Auto) 44.7 L, Lymph % (Auto) 40.4, [place] % (Auto) 8.7, Eos % (Auto) 4.6, [...] 17:54 EST Reading Location ID and State: [facility] / [place] , Service support , ADDENDUM: 01/13/23 180 [...] Self Care Charges/Coding Visit Charges Inpatient E&M: 73247 Disch Hosp >30min 01/14/23 1420 <Electronically signed by Quin Ruffin MD> Cosigner Signature (if applicable): CC: Dr. Amsiha Torrez MD; Dr. Quin Ruffin MD~ Signed [facility] Work Phone: evaluation note* Diagnosis Onset Date Resolution Status Confusion acute Smoker acute TIA (transient ischemic attack) acute HTN (hypertension) chronic [facility] Work Phone: evaluation note* Diagnosis Confusion- Primary Unspecified psychosis documented in this encounter [facility] note* Diagnosis Onset Date Resolution Status Confusion resolved [facility] Work Phone: evaluation note* Diagnosis Onset Date Resolution Status Stroke-like symptoms resolve d [facility] Work Phone: Evaluation note* Diagnosis Elevated blood pressure reading without diagnosis of hypertension [R03.0 (ICD-10-CM)]- Primary Elevated blood pressure reading without diagnosis of hypertension 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) Cerebral thrombosis with cerebral infarction Arterial ischemic stroke, MCA (middle cerebral artery), left, acute (HCC) Unspecified cerebral artery occlusion with cerebral infarction documented in this encounter [facility] note* Diagnosis 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)- Primary Cerebral thrombosis with cerebral infarction [facility] 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)- Primary Cerebral thrombosis with cerebral infarction documented in this encounter [facility] note* Diagnosis Onset Date Resolution Status Stroke-like symptoms resolve d Confusion acute [facility] Work Phone: Evaluation note* Diagnosis Onset Date Resolution Status Stroke-like symptoms resolve d Confusion acute History of high blood pressure acute TIA on medication acute Transient confusion acute [facility] Work Phone: Evaluation noteNo assessment information available [facility] Work Phone: History and physical note Author Dr. Naranjo [facility] March 11, 2023 8:19pm Note Date/Time March 11, 2023 8:19pm [facility] Medical Records Department [address] [place] [address] H&P Exam - Hospitalist 03/11/232009 MR#: [id number] Acct: [id number] Name: SHEELA TADEO Rep #:[id number] : 1945 77 From: Hai Naranjo DO PCP: Dr. Amisha Torrez MD Status:ADM IN Location: [facility] [id number]- 1 HPI - General General Date of [...] put the proper way. They were in [place] for the game when he came back, [...] children read in a car with her. [facility] Medical History HTN (hypertension) Macular degeneration [...] and oriented to place Coordination / Balance: ehhnzm-ov-dqmr test normal and scli-da-fepy test normal Speech: speech normal Psych affect [...] % (Auto) 61.7, Lymph % (Auto) 27.8, [place]% (Auto) 8.1, Eos % (Auto) 1.6, Baso [...] molecular heparin. Charges/Coding Visit Charges Inpatient E&M: 43851 Init Hosp L3 03/11/232018 <Electronically signed by Hai Naranjo DO> Cosigner Signature (if applicable): CC: Dr. Hai Naranjo DO; Dr. Amisha Torrez MD~ Signed [facility] Work Phone: Chief Complaint and Reason for [...] Yes July 20, 2022 1:07pm Power of Hammer Driver Yes July 1:07pm Name of Medical Power of Hammer Driver Michelle July 20, 2022 1:07pm Advance Directive Response Recorded Date/ Time Name of Medical Power of Hammer Driver Michelle Tadeo July 20, 2022 4:15pm Living Will Yes July 20, 2022 4:15pm Power of Hammer Driver Yes July 4:15pm Advance Directive Response Recorded Date/ Time Name of Medical Power of Hammer Driver Michelle Tadeo July 20, 2022 3:15pm Living Will Yes July 20, 2022 3:15pm Power of Hammer Driver Yes July 3:15pm Advance Directive Response Recorded Date/ Time Name of Medical Power of Hammer Driver Michelle Deleon January 13, 2023 6:55pm Living Will Yes January 13, 2023 6:55pm Power of Hammer Driver Yes January 13 6:55pm Advance Directive Response Recorded Date/ Time Name of Medical Power of Hammer Driver Michelle Deleon January 13, 2023 7:55pm Name of Medical Power of Hammer Driver michelle tadeo/ daughter March 11, 2023 5:51pm Living Will Yes March 11, 2023 5: 51pm Power of Hammer Driver Yes March 11, 2023 5:51pm Advance Directive Response Recorded Date/ Time Name of Medical Power of Hammer Driver Michelle Deleon January 13, 2023 7:55pm Name of Medical Power of Hammer Driver michelle tadeo/ daughter March 11, 2023 8:26pm Living Will Yes March 11, 2023 8: 26pm Power of Hammer Driver Yes March 11, 2023 8:26pm Advance Directive Response Recorded Date/ Time Living Will Yes March 11, 2023 8: 26pm Power of Hammer Driver Yes March 11, 2023 8:26pm Advance Directive Response Recorded Date/ Time Living Will Yes March 11, 2023 7: 26pm Power of Hammer Driver Yes March 11, 2023 7:26pm Reason for Referral Specialty Diagnoses / Procedures Referred By Trina griffiths Referred To Contact [facility] Diagnoses 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) Procedures CONSULT TO NEUROLOGY OFFICE/OUTPATIENT [facility] 60-74 MINUTES Chiquis Haider MD [address] [place] [address] La Newberry MD [address] [place] [address] Referral ID Status Reason Start Date Expiration Date Visits Requested Visits Authorized [id number] Authorized PCP Requested Referral 01/25/2023 01/25/2024 1 1 Specialty Diagnoses / Procedures Referred By Contac t Referred To Contact [facility] Diagnoses Arterial ischemic stroke, MCA (middle cerebral artery), left, acute (HCC) Procedures EPIL EEG ROUTINE ELECTROENCEPHALOGRAM REC COMA/[place] [address] [place] [address] [place] [address] Referral ID Status Reason Start Date Expiration Date Visits Requested Visits Authorized [id number] Authorized Auto-Generat ed Referral 01/25/2023 01/26/2024 1 1 Specialty Diagnoses / Procedures Referred By Contac t Referred To Contact [facility] Diagnoses 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) Procedures OT REHAB FOLLOW UP ORDER THERAPEUT ACTVITY DIRECT PT CONTACT EACH [address] [place] [address] [facility] [place] [address] Referral ID Status Reason Start Date Expiration Date Visits Requested Visits Authorized [id number] Pending Review PCP Requested Referral Auto-Generate d [...] or prosecute any alcohol or drug abuse patient.[facility] Hospital[facility] the event this information is protected by the Federal Confidentiality of Alcohol and Drug Abuse Patient Records regulations: The Federal rules restrict any use of the information to criminally investigate or prosecute any alcohol or drug abuse patient.[facility] HospitalIn the event this information is protected by the Federal Confidentiality of Alcohol and Drug Abuse Patient Records regulations: The Federal rules restrict any use of the information to criminally investigate or prosecute any alcohol or drug abuse patient.[facility] HospitalIn the event this information is protected by the Federal Confidentiality of Alcohol and Drug Abuse Patient Records regulations: The Federal rules restrict any use of the information to criminally investigate or prosecute any alcohol or drug abuse patient.[facility] HospitalIn the event this information is protected by the Federal Confidentiality of Alcohol and Drug Abuse Patient Records regulations: The Federal rules restrict any use of the information to criminally investigate or prosecute any alcohol or drug abuse patient.[facility] HospitalIn the event this information is protected by the Federal Confidentiality of Alcohol and Drug Abuse Patient Records regulations: The Federal rules restrict any use of the information to criminally investigate or prosecute any alcohol or drug abuse patient.[facility] Care Teams (unrecognized sec tion and content) Sider Relationship Specialty Start Date End Date Alonso Obando MD [address] [place], [place] [address] PCP - General Family Practice 10/15/10 Team [...] MD Admit Provider, Attending Prov ider Active Sider Relationship Specialty Start Date End Date Alonso Obando MD [address] [place] [address] PCP - General Family Medicine 10/15/10 Sider Relationship Specialty Start Date End Date Alonso Obando MD [address] [place], [place] [address] PCP - General Family Medicine 10/15/10 Sider Relationship Specialty Start Date End Date Alonso Obando MD [address] [place], [place] [address] PCP - General Family Medicine 10/15/10 Team [...] Dr. Kenny Farr MD Other Provider Active Sider Relationship Specialty Start Date End Date Alonso Obando MD [address] [place], [place] [address] PCP - General Family Medicine 10/15/10 Sider Relationship Specialty Start Date End Date Alonso Obando MD [address] [place], [place] [address] PCP - General Family Medicine 10/15/10 Team [...] anterior cerebral artery (HCC) Procedures CONSULT TO LEVEL VIAL MARKER OCCUPATIONAL THERAPY EVAL HIGH COMPLEX 60 MINS Chiquis Haider MD [address] [place] [address] [facility] [address] [address] Referral ID Status Reason Start Date Expiration Date Visits Requested Visits Authorized [id number] Authorized PCP Requested Referral Auto-Generate d Referral 01/25/2023 11/05/2023 99 99 Reason Comments OT EVAL OT Discharge Specialty Diagnoses / Procedures Referred By Contac t Referred To Contact [facility] Diagnoses 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 INFORMATION SOURCE (unrecogn ized section and content) DATE CREATED AUTHOR 07/08/2023 [facility] DATE CREATED AUTHOR AUTHOR'S ORGANIZ ATION 08/16/2023 [facility] DATE CREATED AUTHOR AUTHOR'S ORGANIZ ATION 10/19/2024 [facility] FOR RECORDS PERTAINING TO PATIENTS WHO [...] BE BASED ON THE PRIMARY CLINICAL RECORDS. [facility] [employer] [facility]. provides no warranty or guarantee of the accuracy or completeness of information in this document.
[2025-11-04 07:59] LABS: Hematocrit 50.0 % (37-47); Hemoglobin 15.9 g/dL (12.0-15.0); Immature Granulocytes Count 0.020 X10^3/uL (0.0-0.0); Mean Corp Hgb Conc 31.8 g/dL (32-36); Mean Corpuscular Volume 96.9 fL (81-99); Mean Platelet Vol. 9.1 fl (6.2-12.0); NRBC Flagged by Analyzer 0 % (0-5); Platelet Count 263 K/mm3 (150-450); RBC Distribution Width CV 13.2 % (11.6-14.6); RBC Distribution Width SD 47.1 fl (35.1-43.9); Red Blood Count 5.16 M/mm3 (4.2-5.4); White Blood Count 7.2 K/mm3 (4.4-11.0)
[2025-11-04 08:05] LABS: Anion Gap 10 (7-18); BUN 17 mg/dL (4-19); BUN/Creat Ratio 23.1 RATIO (10-20); Calcium,Total 10.0 mg/dL (7.6-11.0); Carbon Dioxide 27.5 mmol/L (20.0-29.0); Chloride 104 mmol/L (96-106); Glucose 101 mg/dL (70-99); Potassium 4.1 mmol/L (3.5-5.1)
== END ==
LOC: OLS.WHLTSB 05:00
PROVIDERS: PCP Family Medicine; Visit Provider Internal Medicine
DX: E78.5 Hyperlipidemia, unspecified (principal); F41.9 Anxiety disorder, unspecified; G45.9 Transient cerebral ischemic attack, unspecified; H35.30 Unspecified macular degeneration; I10 Essential (primary) hypertension; N18.30 Chronic kidney disease, stage 3 unspecified
CPT/HCPCS: 36415; 80048; 85025